=== PATIENT | male | born 1955 | race Caucasian/White ===

== ENCOUNTER → 2018-02-14 15:33 | Outpatient (CLI) | payer MEDICARE, OTHER, SELFPAY ==
[2018-02-14 17:35] LABS: T4 Free Direct 0.43 ng/dL (0.76-1.46)
== END ==
PROVIDERS: Family Provider Internal Medicine; PCP Internal Medicine; Visit Provider Nurse Practitioner
DX: E03.9 Hypothyroidism, unspecified (principal)
CPT/HCPCS: 36415; 84439; 84443; 84481

== ENCOUNTER 2020-03-21 16:55 | Inpatient (IN) | payer MEDICARE, OTHER, SELFPAY ==
[2020-03-21 16:55] VITALS: BP 116/71; PULSE 103; RESP 16; TEMP 35.4; O2SAT 96; BMI 48.8
[2020-03-21] MEDS: 0.9% Normal Saline 1,000 ML 150 ML IV (18:31)
[2020-03-21 18:33] VITALS: BP 153/85; PULSE 90; RESP 18; TEMP 36.9; O2SAT 96
--- NOTE | 2020-03-21 18:41 | RAD_ITS ---
STUDY: X-RAY - LEFT FOOT CLINICAL: Male, 64 years old. INFECTED WOUND LATERAL FOOT TECHNIQUE: 4 view(s) of the foot. COMPARISON: 10/03/2016. FINDINGS: Prominent deformities from extensive previous amputations across the midfoot. The talus and calcaneus remain intact. Portions of the navicular and cuneiforms remain in place. No definite focal destructive process of the bones, however with this degree of postoperative deformities, after myelitis cannot be excluded. Marked soft tissue swelling, soft tissue irregularities consistent with skin wounds, and soft tissue gas cannot be excluded. RAD/Foot min 3 Views IMPRESSION: Marked deformities from previous mid foot amputations. No definite focal destructive process of the bones. Extensive soft tissue abnormalities consistent with probable skin wounds and possible infection. Electronically Signed: Erasmo Solomon MD at 19:27 EDT , Service support ,
[2020-03-21 18:44] LABS: Absolute Lymphocyte Count 1.99 X10^3/uL (0.83-4.51); Absolute Neutrophil Count 9.3 X10^3/uL (2.0-7.7); Basophil# 0.11 X10^3/uL; Basophil% 0.8 % (0-1); Eosinophil# 0.25 X10^3/uL; Eosinophils% 1.9 % (0-5); Hematocrit 44.8 % (40-54); Hemoglobin 13.3 g/dL (13.0-16.5); Lymphocyte # 1.99 X10^3/ul (4.0); Lymphocyte % 15.2 % (19-41); Mean Corp Hgb Conc 29.7 g/dL (32-36); Mean Corpuscular Hgb 26.9 pg (27.0-32.0); Mean Corpuscular Volume 90.7 fL (80-94); Mean Platelet Vol. 10.1 fl (6.2-12.0); Monocyte# 1.22 X10^3/uL; Monocyte% 9.3 % (0-10); NRBC Flagged by Analyzer 0 % (0-5); Neutrophil # 9.26 X10^3/uL (2.7-7.7); Platelet Count 349 K/mm3 (150-450); RBC Distribution Width CV 16.2 % (11.6-14.6); RBC Distribution Width SD 53.8 fl (35.1-43.9); Red Blood Count 4.94 M/mm3 (4.6-6.2); White Blood Count 13.1 K/mm3 (4.4-11.0)
[2020-03-21 18:55] LABS: Anion Gap 6 (5-15); BUN 21 mg/dL (7-18); BUN/Creat Ratio 13.5 RATIO (10-20); Calcium,Total 8.9 mg/dL (8.5-10.1); Chloride 107 mmol/L (98-107); Creatinine, Serum 1.55 mg/dL (0.70-1.30); EST Glomerular Filtration Rate 49 mL/min (>60); Est Glom Filt Rate - Afr Amer 59 mL/min (>60); Estimated Creatinine Clearance 52.63 ml/min; Glucose 183 mg/dL (74-106); Potassium 4.7 mmol/L (3.5-5.1); Sodium Level 135 mmol/L (136-145)
--- NOTE | 2020-03-21 20:03 | PCM.HP.STD ---
Problem List (1) Alcoholism in recovery Status: Chronic (2) Diabetic foot infection Status: Acute (3) Sepsis Status: Acute Comment: with MRSA bacteremia due to diabetic foot infection August 2016 (4) COPD (chronic obstructive pulmonary disease) Status: Chronic (5) Diabetic neuropathy Status: Chronic (6) CAD (coronary artery disease) Status: Chronic (7) Diabetes mellitus Status: Chronic Qualifiers: Diabetes mellitus type: type 2 Diabetes mellitus long term care phlebotomist insulin use: with long term care phlebotomist use Diabetes mellitus complication status: with neurologic complications Diabetes mellitus complication detail: with other neurological complication Qualified Code(s): E11.49 - Type 2 diabetes mellitus with other diabetic neurological complication; Z79.4 - [facility] (current) use of insulin (8) Hypothyroidism Status: Chronic Qualifiers: Hypothyroidism type: acquired Qualified Code(s): E03.9 - Hypothyroidism, unspecified Comment: Reports has been more tired and lacking interest in doing things at this time. He feels he is gaining more weight and this he does not want. Rechech thyroid levels. (9) CECILE treated with BiPAP Status: Chronic Comment: PATIENT HAS OWN MACHINE. He feels he is doing well (10) HTN (hypertension) Status: Chronic Qualifiers: Hypertension type: essential hypertension Qualified Code(s): I10 - Essential (primary) hypertension Comment: Is on an paola inhibitor and tolerating well. BP 124/85 (11) Morbid obesity with BMI of 40.0-44.9, adult Status: Chronic (12) Diabetic foot ulcer associated with type 2 diabetes mellitus Status: Acute Qualifiers: Laterality: left (13) Uncontrolled diabetes mellitus Status: Chronic Qualifiers: Diabetes mellitus type: type 2 Comment: BG readings in the low 200 range. Seems to need more back ground insulin. He would probably benefit from use of U-500. He reports he has significant supply of insulin at this time and does want to use it up. Enc to monitor BG carefully (14) Non-compliance Status: Chronic (15) Hyperlipidemia Status: Chronic Qualifiers: Hyperlipidemia type: unspecified Qualified Code(s): E78.5 - Hyperlipidemia, unspecified Comment: No recent labs available at time of visit. He reports he is not willing to use a statin. Will obtain labs from [facility] provider. No medical records available at time of visit. (16) Venous stasis dermatitis Status: Chronic (17) Diabetic neuropathy associated with type 2 diabetes mellitus Status: Chronic (18) Charcot's joint of foot due to diabetes Status: Chronic History of Present Illness Date of Admission: 03/21/20 Chief Complaint: maldorous wound of left foot stump The patient is a 64 year old M with a significant history of diabetes; charcot foot; and previous amputation and abscess of left foot presenting with increased odor of a wound at the plantar side of a stump of his left foot. He unroofed a wound on the stump of his left foot about a week ago and thereafter noticed increased progression of a bad odor from the wound. He saw Dr. Etta DPM who recommended that he come to the emergency department. At the emergency department patient had a tachycardia and elevated white count. Past Medical History Past Medical History (Chronic Problems): Chronic Problems (Last Reviewed 03/21/20 @ 23:[address] Quoc Victor MD) Alcoholism in recovery (Chronic) COPD (chronic obstructive pulmonary disease) (Chronic) Diabetic neuropathy (Chronic) CAD (coronary artery disease) (Chronic) Diabetes mellitus (Chronic) Hypothyroidism (Chronic) Reports has been more tired and lacking interest in doing things at this time. He feels he is gaining more weight and this he does not want. Rechech thyroid levels. CECILE treated with BiPAP (Chronic) PATIENT HAS OWN MACHINE. He feels he is doing well HTN (hypertension) (Chronic) Is on an paola inhibitor and tolerating well. BP 124/85 Morbid obesity with BMI of 40.0-44.9, adult (Chronic) Uncontrolled diabetes mellitus (Chronic) BG readings in the low 200 range. Seems to need more back ground insulin. He would probably benefit from use of U-500. He reports he has significant supply of insulin at this time and does want to use it up. Enc to monitor BG carefully Non-compliance (Chronic) Hyperlipidemia (Chronic) No recent labs available at time of visit. He reports he is not willing to use a statin. Will obtain labs from [facility] provider. No medical records available at time of visit. Venous stasis dermatitis (Chronic) Diabetic neuropathy associated with type 2 diabetes mellitus (Chronic) Charcot's joint of foot due to diabetes (Chronic) Medical History: Medical History (Last Reviewed 03/22/20 @ 05:[address] Quoc Victor MD) Alcohol abuse F10.10 Anxiety and depression F41.9, F32.9 Arthritis M19.90 COPD (chronic obstructive pulmonary disease) J44.9 Diabetes type 2, uncontrolled E11.65 dx : 1999 last exacerbation : dka : never hypoglycemic episode : never er visit : never Drug abuse F19.10 GERD (gastroesophageal reflux disease) K21.9 GI problem R19.8 H/O transfusion of whole blood Z92.89 Hearing problem H91.90 High cholesterol E78.00 High triglycerides E78.1 CECILE (obstructive sleep apnea) G47.33 Pneumonia J18.9 Recurrent infections B99.9 Thyroid disorder E07.9 Vision problems H54.7 Vitamin deficiency E56.9 prostate problems HTN (hypertension) I10 Allergies No Known Allergies Allergy (Verified 02/14/18 14:04) Home Medications: Ambulatory Orders Medication Instructions Recorded Lorazepam [Ativan] 1 mg PO BID PRN PRN 08/14/16 Ropinirole HCl [Requip] 0.25 mg PO QHS PRN 08/17/16 doxycycline hyclate 100 mg capsule 100 mg PO BID 02/14/18 enalapril maleate 20 mg tablet 20 mg PO QHS 02/14/18 fluticasone propionate 50 2 spray INTRANASAL DAILY PRN PRN 02/14/18 mcg/actuation nasal spray,suspension insulin aspart U-100 100 unit/mL 60 unit SC TIDCM ml 02/14/18 subcutaneous solution insulin detemir U-100 100 unit/mL 200 unit SC BID ml 02/14/18 subcutaneous solution levothyroxine 75 mcg tablet 225 mcg PO DAILY@0600 #90 tab 03/02/18 Amlodipine [Norvasc] 2.5 mg PO DAILY 03/21/20 Citalopram [Celexa] 20 mg PO DAILY 03/21/20 Duloxetine HCl 60 mg PO DAILY 03/21/20 Omeprazole 40 mg PO QHS 03/21/20 buPROPion SR [Wellbutrin SR (150mg 150 mg PO BID 03/21/20 tablets)] Surgical History: Surgical History (Last Reviewed 03/22/20 @ 05:[address] 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 Psychiatric History: Anxiety, Depression Smoking Status: Former smoker Alcohol: Sober - *Family History Paternal Family History: Family History (Last Reviewed 03/22/20 @ 05:[address] Quoc Victor MD) Mother Arthritis Diabetes Hypertension High cholesterol Osteoporosis Sister Breast cancer Cancer High cholesterol Brother Lung cancer High cholesterol Father Hypertension High cholesterol History Items: Heart Disease, Hypertension Maternal Family History: Family History (Last Reviewed 03/22/20 @ 05:[address] Quoc Victor MD) Mother Arthritis Diabetes Hypertension High cholesterol Osteoporosis Sister Breast cancer Cancer High cholesterol Brother Lung cancer High cholesterol Father Hypertension High cholesterol History Items: Diabetes Sibling Family History: Family History (Last Reviewed 03/22/20 @ 05:[address] Quoc Victor MD) Mother Arthritis Diabetes Hypertension High cholesterol Osteoporosis Sister Breast cancer Cancer High cholesterol Brother Lung cancer High cholesterol Father Hypertension High cholesterol History Items: Cancer - sister with breast, brother of lung cancer Review of Systems Constitutional: Denies: Chills, Fever, Weight Change HEENT: Denies: Head Aches, Sinus Congestion, Sinus Drainage Cardiovascular: Denies: Chest Pain, Palpitations Respiratory: Denies: Cough, Shortness of breath at rest, Sputum production Gastrointestinal: Denies: Abdominal Pain, Nausea, Vomiting Genitourinary: Denies: Dysuria Musculoskeletal: Denies: Joint Pain, Joint Tenderness Skin: Reports: Wounds. Denies: Rash Neurological: Reports: Numbness - all extremities, chronic. Denies: Focal weakness, Tingling Psychiatric: Denies: Anxiety, Depression, Homicidal Ideations, Suicidal Ideations Hematologic/ Lymphatic: Denies: Easy Bruising, Easy Bleeding VTE Information - Inpt Only VTE Present on Admission: No VTE Mechan Device Prophylaxis: None VTE Pharm Prophylaxis ordered?: Yes - Physical Exam Vitals/I&O's: Vital Signs Temp Pulse Resp BP Pulse Ox 98.4 F 90 18 153/85 H 96 03/21/20 18:33 03/21/20 18:33 03/21/20 18:33 03/21/20 18:33 03/21/20 18:33 Oxygen Delivery Method Room Air Weight: 158.757 kg Body Mass Index (BMI) 48.8 Finger Stick Blood Glucose 198 Intake and Output for Last 24 Hours 03/19/20 03/20/20 03/21/20 23:59 23:59 23:59 Intake Total 112 / 112 Balance 112 / 112 General: Alert, Oriented x3, Cooperative HEENT: Atraumatic, PERRLA, EOMI, Normocephalic Neck: Supple, No JVD, Negative Carotid Bruits Lungs: Clear to auscultation, Normal air movement Cardiovascular: Normal S1, Normal S2, No murmurs, Tachycardic Abdomen: Bowel Sounds Present, Soft, Non Tender Extremities: No edema, - - Partial amputation of left foot. Necrotic wound at the plantar side and lateral side of left foot. Skin: No rashes, Ulcer/ Wound - Left fourth Musculoskeletal: No Tenderness to Palpation of Joints or Extremities Neurological: Cranial nerves II-XII grossly intact Psych/Mental Status: Normal Affect, Appropriate Laboratory Results 03/21/20 18:30: WBC 13.1 H, RBC 4.94, Hgb 13.3, Hct 44.8, MCV 90.7, MCH 26.9 L, MCHC 29.7 L, RDW Std Deviation 53.8 H, RDW Coeff of Jose 16.2 H, Plt Count 349, MPV 10.1, Immature Gran % (Auto) 1.800 H, Neut % (Auto) 71.0 H, Lymph % (Auto) 15.2 L, [place] % (Auto) 9.3, Eos % (Auto) 1.9, Baso % (Auto) 0.8, Absolute Neuts (auto) 9.3 H, Absolute Lymphs (auto) 1.99, Nucleated RBC % 0 03/21/20 18:30: Sodium 135 L, Potassium 4.7, Chloride 107, Carbon Dioxide 22.0, Anion Gap 6, BUN 21 H, Creatinine 1.55 H, Estim Creat Clear Calc 52.63, Est GFR (MDRD) Af Amer 59 L, Est GFR (MDRD) Non-Af 49 L, BUN/Creatinine Ratio 13.5, Glucose 183 H, Calcium 8.9 03/21/20 18:30: Lactic Acid 1.0 Current Medications Sodium Chloride () 1,000 mls @ 150 mls/hr IV .Q6H40M FAITH Last Admin: 03/21/20 18:31 Dose: 150 mls/hr Documented by: Vancomycin HCl 2,000 mg/ (Sodium Chloride) 540 mls @ 250 mls/hr IV X1 ONE Stop: 03/21/20 20:09 Last Admin: 03/21/20 19:13 Dose: 250 mls/hr Documented by: Assessment/Plan All Active Problems (Last Reviewed 03/21/20 @ 23:[address] Quoc Victor MD) Diabetic foot infection (Acute) Sepsis (Acute) Diabetic foot ulcer associated with type 2 diabetes mellitus (Acute) Acute renal failure (Resolved) COPD exacerbation (Resolved) Foot ulcer, left (Resolved) Hospital-acquired pneumonia (Resolved) Necrotizing fasciitis (Resolved) Non-ST elevated myocardial infarction (Resolved) Osteomyelitis of ankle or foot (Resolved) left foot neuropathic deep wound infection (Resolved) The patient is a 64 year old M with a significant history of diabetes; charcot foot; and previous amputation and abscess of left foot presenting with increased odor of the wound at the plantar side of a stump of his left foot; and with tachycardia and leukocytosis consistent with sepsis secondary to diabetic foot ulcer infection. Sepsis secondary to diabetic foot ulcer infection. On home suppressive therapy with doxycycline. Hold Doxycycline for now. Check ESR and CRP Received vancomycin and Unasyn at emergency department. Foot x-ray was consistent with probable skin wounds and possible infection. Podiatry consulted. MRI ordered by podiatry. Change antibiotics to vancomycin and Zosyn. Lactic acid unremarkable. Follow blood cultures ordered in emergency department. Diabetes mellitus with nephropathy and neuropathy Patient with hyperglycemia on presentation. Adjust basal and prandial insulin. Add correction scale insulin. CKD stage III Stable. Likely secondary to diabetes. Hypertension On presented blood pressure was not under control. Continue home blood pressure medications. DVT prophylaxis Subcutaneous heparin. [id number]
--- NOTE | 2020-03-21 20:18 | ED.VISSUMM ---
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 Patient states that he has a wound to his left foot that has been foul-smelling. Patient has had problems with diabetic foot ulcers in the past. He has had toes resected from the left foot. Patient has had intermittent fevers but not over the last 3 days. Patient denies cough. Patient is a diabetic and has a history of hypertension, COPD, high cholesterol, hypothyroidism, and coronary artery disease.] Physical Examination: [HEENT-PERRLA, EOMI. Cranial nerves II through XII grossly intact. TMs clear. Mucous membranes moist. No adenopathy. Cardiovascular-regular rate and rhythm without murmur or ectopy Lungs-clear to auscultation, chest wall stable without crepitus or subcu emphysema Abdomen-normoactive bowel sounds, soft, nontender, no rebound or rigidity, no peritoneal signs. Extremities-intact ?4, normal range of motion, normal pulses. Left foot-patient has a diabetic foot wound to the plantar aspect laterally of the midfoot. Toes have been surgically removed from the left foot. There is surrounding erythema and cellulitis. There is foul odor noted. No gas noted in the tissues.] Test Results: [Rays of the left foot obtained showed no evidence of osteomyelitis. CBC with differential showed a slightly elevated white count of 13.1, hemoglobin 13, hematocrit 45. Chemistries unremarkable.] Emergency Department Course and Treatment: [He was treated with Unasyn and vancomycin.] Treatment Plan: Admit] Disposition: [Admit] Impression: [Better foot wound Cellulitis left foot] This note was generated with [employer] dictation software. It may contain incorrect words, spelling, and punctuation that were not noted in review of the chart prior to signing ED Disposition - Plan for ED Patient: Referrals: Maico Jones MD [Primary Care Provider] -
--- NOTE | 2020-03-21 20:43 | CON.PCM_ITS ---
Reason for Consult Date of Consultation: 03/21/20 History of Present Illness: The patient is a 64 year old male with history of uncontrolled diabetes, medical nonadherence/noncompliance, previous left partial foot amputation due to infection osteomyelitis with residual chronic osteomyelitis on chronic Doxycyc line presented to my office today relating to a wound to the left foot. The wound was noted to be necrotic, with maloder and with cellulitis, edema and probing deep into foot. He relates he has been procrastinating and should have come in sooner. He was sent to the ER so patient could be admitted for further workup and management. He is at high risk for limb loss. He relates his blood sugars have been up and down. He does not relate to pain, but he has significant diabetic neuropathy. It is noted WBC is elevated at 13.1, afebrile, xrays w/out gas. Past Medical History Past Medical History (Chronic Problems): Chronic Problems (Last Updated 02/14/18 @ 14:40 by Shaista Rutherford) Alcoholism in recovery (Chronic) COPD (chronic obstructive pulmonary disease) (Chronic) Diabetic neuropathy (Chronic) CAD (coronary artery disease) (Chronic) Diabetes mellitus (Chronic) Hypothyroidism (Chronic) Reports has been more tired and lacking interest in doing things at this time. He feels he is gaining more weight and this he does not want. Rechech thyroid levels. CECILE treated with BiPAP (Chronic) PATIENT HAS OWN MACHINE. He feels he is doing well HTN (hypertension) (Chronic) Is on an paola inhibitor and tolerating well. BP 124/85 Morbid obesity with BMI of 40.0-44.9, adult (Chronic) Uncontrolled diabetes mellitus (Chronic) BG readings in the low 200 range. Seems to need more back ground insulin. He would probably benefit from use of U-500. He reports he has significant supply of insulin at this time and does want to use it up. Enc to monitor BG carefully Non-compliance (Chronic) Hyperlipidemia (Chronic) No recent labs available at time of visit. He reports he is not willing to use a statin. Will obtain labs from [facility] provider. No medical records available at time of visit. Venous stasis dermatitis (Chronic) Diabetic neuropathy associated with type 2 diabetes mellitus (Chronic) Charcot's joint of foot due to diabetes (Chronic) Medical History: Medical History (Last Updated 02/14/18 @ 14:40 by Shaista Rutherford) Alcohol abuse F10.10 Anxiety and depression F41.9, F32.9 Arthritis M19.90 COPD (chronic obstructive pulmonary disease) J44.9 Diabetes type 2, uncontrolled E11.65 dx : 1999 last exacerbation : dka : never hypoglycemic episode : never er visit : never Drug abuse F19.10 GERD (gastroesophageal reflux disease) K21.9 GI problem R19.8 H/O transfusion of whole blood Z92.89 Hearing problem H91.90 High cholesterol E78.00 High triglycerides E78.1 CECILE (obstructive sleep apnea) G47.33 Pneumonia J18.9 Recurrent infections B99.9 Thyroid disorder E07.9 Vision problems H54.7 Vitamin deficiency E56.9 prostate problems HTN (hypertension) I10 Allergies No Known Allergies Allergy (Verified 02/14/18 14:04) Home Medications: Ambulatory Orders Medication Instructions Recorded Lorazepam [Ativan] 1 mg PO BID PRN PRN 08/14/16 Ropinirole HCl [Requip] 0.25 mg PO QHS PRN 08/17/16 doxycycline hyclate 100 mg capsule 100 mg PO BID 02/14/18 enalapril maleate 20 mg tablet 20 mg PO QHS 02/14/18 fluticasone propionate 50 2 spray INTRANASAL DAILY PRN PRN 02/14/18 mcg/actuation nasal spray,suspension insulin aspart U-100 100 unit/mL 60 unit SC TIDCM ml 02/14/18 subcutaneous solution insulin detemir U-100 100 unit/mL 200 unit SC BID ml 02/14/18 subcutaneous solution levothyroxine 75 mcg tablet 225 mcg PO DAILY@0600 #90 tab 03/02/18 Amlodipine [Norvasc] 2.5 mg PO DAILY 03/21/20 Citalopram [Celexa] 20 mg PO DAILY 03/21/20 Duloxetine HCl 60 mg PO DAILY 03/21/20 Omeprazole 40 mg PO QHS 03/21/20 buPROPion SR [Wellbutrin SR (150mg 150 mg PO BID 03/21/20 tablets)] Surgical History: Surgical History (Last Updated 02/14/18 @ 14:40 by Shaista Rutherford) 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 Psychiatric History: Anxiety, Depression Smoking Status: Former smoker - *Family History Paternal Family History: Family History (Last Updated 02/14/18 @ 14:15 by Shaista Rutherford) Mother Arthritis Diabetes Hypertension High cholesterol Osteoporosis Sister Breast cancer Cancer High cholesterol Brother Lung cancer High cholesterol Father Hypertension High cholesterol History Items: Heart Disease, Hypertension Maternal Family History: Family History (Last Updated 02/14/18 @ 14:15 by Shaista Rutherford) Mother Arthritis Diabetes Hypertension High cholesterol Osteoporosis Sister Breast cancer Cancer High cholesterol Brother Lung cancer High cholesterol Father Hypertension High cholesterol History Items: Diabetes Sibling Family History: Family History (Last Updated 02/14/18 @ 14:15 by Shaista Rutherford) Mother Arthritis Diabetes Hypertension High cholesterol Osteoporosis Sister Breast cancer Cancer High cholesterol Brother Lung cancer High cholesterol Father Hypertension High cholesterol History Items: Cancer - sister with breast, brother of lung cancer Review of Systems Constitutional: Denies: Chills, Fever Gastrointestinal: Denies: Nausea, Vomiting - Physical Exam Vitals/I&O's: Vital Signs Temp Pulse Resp BP Pulse Ox 98.4 F 90 18 153/85 H 96 03/21/20 18:33 03/21/20 18:33 03/21/20 18:33 03/21/20 18:33 03/21/20 18:33 Oxygen Delivery Method Room Air Weight: 158.757 kg Body Mass Index (BMI) 48.8 Finger Stick Blood Glucose 198 Intake and Output for Last 24 Hours 03/19/20 03/20/20 03/21/20 23:59 23:59 23:59 Intake Total 112 / 112 Balance 112 / 112 General: Alert, Oriented x3, Cooperative, No apparent distress Extremities: No clubbing, No cyanosis, No Calf Tenderness, - - Left foot s/p midfoot amputation, residual limb has large necrotic ulceration to the plantar lateral aspect which probes deep close to bone, there is maloder, there is no fluctuance, no crepitus, no visible abscess, there is noted to be edema and cellulitis to the foot; no other open lesions bilateral foot. Left foot with increased temperature c/w infection. Right foot normal temperature. CFT < 2 seconds to all toes on the right foot, no evidence of acute ischemia to the left foot or right foot. No blistering bilateral foot/ankle. No edema right foot. No POP or pain on ROM to the foot/ankle bilateral. Sensation significantly diminished to foot/ankle bilateral. Motor function intact to the foot/ankle bilateral. Musculoskeletal: No Tenderness to Palpation of Joints or Extremities Psych/Mental Status: Normal Affect, Alert and oriented to time, place, person, mood and affect Laboratory Results 03/21/20 18:30: WBC 13.1 H, RBC 4.94, Hgb 13.3, Hct 44.8, MCV 90.7, MCH 26.9 L, MCHC 29.7 L, RDW Std Deviation 53.8 H, RDW Coeff of Jose 16.2 H, Plt Count 349, MPV 10.1, Immature Gran % (Auto) 1.800 H, Neut % (Auto) 71.0 H, Lymph % (Auto) 15.2 L, [place] % (Auto) 9.3, Eos % (Auto) 1.9, Baso % (Auto) 0.8, Absolute Neuts (auto) 9.3 H, Absolute Lymphs (auto) 1.99, Nucleated RBC % 0 03/21/20 18:30: Sodium 135 L, Potassium 4.7, Chloride 107, Carbon Dioxide 22.0, Anion Gap 6, BUN 21 H, Creatinine 1.55 H, Estim Creat Clear Calc 52.63, Est GFR (MDRD) Af Amer 59 L, Est GFR (MDRD) Non-Af 49 L, BUN/Creatinine Ratio 13.5, Glucose 183 H, Calcium 8.9 03/21/20 18:30: Lactic Acid 1.0 Current Medications Sodium Chloride () 1,000 mls @ 150 mls/hr IV .Q6H40M [facility] Last Admin: 03/21/20 18:31 Dose: 150 mls/hr Documented by: Assessment/Plan All Active Problems (Last Updated 02/14/18 @ 14:40 by Shaista Rutherford) Diabetic foot infection (Acute) Sepsis (Acute) Diabetic foot ulcer associated with type 2 diabetes mellitus (Acute) Acute blood loss anemia (Resolved) Acute renal failure (Resolved) COPD exacerbation (Resolved) Foot ulcer, left (Resolved) Hospital-acquired pneumonia (Resolved) Necrotizing fasciitis (Resolved) Non-ST elevated myocardial infarction (Resolved) Osteomyelitis of ankle or foot (Resolved) left foot neuropathic deep wound infection (Resolved) Deep ulceration down to fascia layer w/ necrosis left foot Cellulitis left foot Osteomyelitis left foot Diabetic neuropathy Diabetes Multiple Comorbidities Reviewed diagnostic data. I did call and speak with the ER team. The patient is going to be admitted, and IV antibiotics will be started. A culture will be ordered of the left foot. MRI will be ordered for further evaluation of possible deep abscess. Patient will likely need surgical debridement, however would like to get MRI first. LEAS will be ordered as well for further evaluation of arterial flow. No weightbearing left foot. Diabetes and medical management per medicine team. Greatly appreciate ER and medicine teams assistance with case. Podiatry will follow closely.
--- NOTE | 2020-03-21 20:58 | ART_ITS ---
Reason For Study: Left foot ulcer Procedure A bilateral lower extremity continuous wave Doppler with analog waveform analysis,segmental pressures,and ankle brachial indexes without exercise. Left Segmental Pressures Left brachial= 144mmHg. Left posterior tibial artery = 144mmHg. Left dorsalis pedis artery = 144mmHg. The left dorsalis pedis waveforms are triphasic. The left posterior tibial artery waveforms are triphasic. Right Segmental Pressures Right brachial= 142mmHg. Right posterior tibial artery = 148mmHg. Right dorsalis pedis artery = 125mmHg. Right digit = 121 mmHg. The right dorsalis pedis waveforms are triphasic. The right posterior tibial artery waveforms are triphasic. Indices The right ankle brachial index by the dorsalis pedis is 0.87. The right ankle brachial index by the posterior tibial artery is 1.03. The right digital-brachial index is 0.84. The left ankle brachial index by the dorsalis pedis is 1.00. The left ankle brachial index by the posterior tibial artery is 1.00. Interpretation Summary Triphasic Doppler waveforms are noted at ankle level bilaterally. Pulse-volume recordings appear satisfactory at all levels bilaterally. Resting ankle-brachial indices are normal bilaterally. The right digital-brachial index is normal. The left digital-brachial index was not obtained, presumably due to a prior partial left foot amputation. There is no evidence of significant arterial occlusive disease in the lower extremities bilaterally. Ordering Physician: Jimi Quiles Referring Physician: Maico Jones M.D. Performed By: Shi Ann RVT
--- NOTE | 2020-03-21 20:59 | MRI_ITS ---
STUDY: MRI LEFT MIDFOOT REASON FOR EXAM: Ulcer at lateral foot stump. TECHNIQUE: Standardized fat and water weighted pulse sequences were obtained in all 3 orthogonal planes. COMPARISON: Radiographs 03/21/2020 and MRI images 10/02/2016. FINDINGS: Normal tibiotalar and posterior subtalar articulations. Normal talonavicular articulation. There is a subchondral cyst in the cuboid at the calcaneocuboid articulation (inversion recovery sagittal image 11). There is no bone edema of the talus, calcaneus, navicular or remaining cuboid to indicate osteomyelitis. There is atrophy with fat replacement of the intrinsic muscles of the hindfoot/remaining midfoot (T1 axial images 11-18). There is edema in the subcutis adipose space of the stump and anterior aspect of the ankle. There is no focal fluid collection to indicate soft tissue abscess. 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 Edema in the subcutis adipose space without demonstrated soft tissue abscess. Atrophy of the intrinsic muscles of the hindfoot/remaining midfoot. Electronically Signed: Josh Figueroa MD at 10:27 EDT Tel , Service support ,
[2020-03-21 22:27] VITALS: BMI 55.6
[2020-03-21 22:28] LABS: Erythrocyte Sedimentation Rate 68 mm/hr (0-20)
[2020-03-21 22:30] VITALS: BP 140/78; PULSE 85; RESP 17; TEMP 36.9; O2SAT 94
[2020-03-21 22:46] VITALS: BMI 55.6
[2020-03-21] MEDS: Heparin Injection (Vial) 5,000 UNIT/ML VIAL 5000 UNIT SC (22:56)
[2020-03-21] MEDS: Lisinopril 20 MG Tablet PO (22:56)
[2020-03-21] MEDS: Pantoprazole Sodium 40 MG Tablet PO (22:57)
[2020-03-21] MEDS: buPROPion (SR) 150 MG Tablet.SA PO (22:57)
[2020-03-21] MEDS: LORazepam 1 MG Tablet PO (23:13)
[2020-03-21] MEDS: MELATONIN 3 MG TABLET PO (23:13)
[2020-03-21] MEDS: Pramipexole Di-HCl 0.125 MG Tablet PO (23:13)
[2020-03-22 00:01] LABS: Bedside Glucose 247 mg/dL (70-110)
--- NOTE | 2020-03-22 00:05 | NURSING ---
MRSA culture site is from LLE wound, not bilateral nares. Lab notified of change and this RN notified that lab would change the listed collection site.
[2020-03-22 01:22] LABS: Probe Check PASS; Staph aureus DNA By PCR POSITIVE (Negative)
[2020-03-22 01:24] LABS: M R Staph aureus DNA By PCR POSITIVE (Negative)
--- NOTE | 2020-03-22 02:05 | PCM.RX.CS ---
Consult Pharmacy has been consulted to manage selected antiobiotic: Vancomycin Type of Consult: New start Suspected Infection: Sepsis Labs: Sodium 135 mmol/L (136-145) L 03/21/20 18:30 Potassium 4.7 mmol/L (3.5-5.1) 03/21/20 18:30 Chloride 107 mmol/L (98-107) 03/21/20 18:30 Carbon Dioxide 22.0 mmol/L (21.0-32.0) 03/21/20 18:30 Anion Gap 6 (5-15) 03/21/20 18:30 BUN 21 mg/dL (7-18) H 03/21/20 18:30 Creatinine 1.55 mg/dL (0.70-1.30) H 03/21/20 18:30 Est GFR (MDRD) Af Amer 59 mL/min (>60) L 03/21/20 18:30 Est GFR (MDRD) Non-Af 49 mL/min (>60) L 03/21/20 18:30 BUN/Creatinine Ratio 13.5 RATIO (10-20) 03/21/20 18:30 Glucose 183 mg/dL (74-106) H 03/21/20 18:30 Goal Trough: 15-20 mcg/mL Pharmacy Plan for Drug Dosing: Pharmacy Service will continue to monitor and adjust dosing as required. Medications Vancomycin HCl 2,000 mg/ (Sodium Chloride) 540 mls @ 250 mls/hr IV Q12H [facility] Discontinued Medications Vancomycin HCl 2,000 mg/ (Sodium Chloride) 540 mls @ 250 mls/hr IV X1 ONE Stop: 03/21/20 20:09 Last Admin: 03/21/20:23 Dose: Infused Documented by: Follow-Up Labs: Trough Vancomycin Labs to be done on [date and time ordered]: 03/23 @ 8540
[2020-03-22 04:14] VITALS: BP 111/55; PULSE 84; RESP 17; TEMP 36.6; O2SAT 95
[2020-03-22 05:55] LABS: Absolute Lymphocyte Count 1.84 X10^3/uL (0.83-4.51); Absolute Neutrophil Count 7.1 X10^3/uL (2.0-7.7); Basophil# 0.06 X10^3/uL; Basophil% 0.6 % (0-1); Eosinophil# 0.25 X10^3/uL; Eosinophils% 2.4 % (0-5); Hematocrit 39.9 % (40-54); Hemoglobin 12.4 g/dL (13.0-16.5); Lymphocyte # 1.84 X10^3/ul (4.0); Lymphocyte % 17.9 % (19-41); Mean Corp Hgb Conc 31.1 g/dL (32-36); Mean Corpuscular Hgb 27.1 pg (27.0-32.0); Mean Corpuscular Volume 87.1 fL (80-94); Mean Platelet Vol. 10.1 fl (6.2-12.0); Monocyte# 0.93 X10^3/uL; NRBC Flagged by Analyzer 0 % (0-5); Neutrophil # 7.05 X10^3/uL (2.7-7.7); Neutrophil % 68.4 % (47-70); Platelet Count 319 K/mm3 (150-450); RBC Distribution Width CV 15.9 % (11.6-14.6); RBC Distribution Width SD 50.3 fl (35.1-43.9); Red Blood Count 4.58 M/mm3 (4.6-6.2); White Blood Count 10.3 K/mm3 (4.4-11.0)
[2020-03-22 06:22] LABS: Anion Gap 5 (5-15); BUN 21 mg/dL (7-18); BUN/Creat Ratio 14.2 RATIO (10-20); Calcium,Total 8.8 mg/dL (8.5-10.1); Chloride 103 mmol/L (98-107); Creatinine, Serum 1.48 mg/dL (0.70-1.30); EST Glomerular Filtration Rate 51 mL/min (>60); Est Glom Filt Rate - Afr Amer 62 mL/min (>60); Estimated Creatinine Clearance 55.12 ml/min; Glucose 202 mg/dL (74-106); Potassium 4.4 mmol/L (3.5-5.1); Sodium Level 134 mmol/L (136-145)
[2020-03-22] MEDS: Heparin Injection (Vial) 5,000 UNIT/ML VIAL 5000 UNIT SC ×3 (06:53→22:31)
[2020-03-22] MEDS: Levothyroxine 75 MCG Tablet 225 MCG PO (06:53)
--- NOTE | 2020-03-22 07:00 | NURSING ---
Pt has one IV access. Additional IV placement was attempted for an hour with no success. I spoke with pharmacy as pt has 0600 Zosyn and 0700 Vanc due. Pharmacy confirmed to run Vanc first as timing is more critical. They verified that it is alright to run the vanc at a slower rate to protect existing IV until addition access may be established. Pharmacy further stated to run 0600 Zosyn after vanc is completed.
[2020-03-22 07:41] LABS: Bedside Glucose 181 mg/dL (70-110)
[2020-03-22 07:44] VITALS: BP 112/65; PULSE 84; RESP 16; TEMP 36.7; O2SAT 97
[2020-03-22 07:50] VITALS: O2SAT 96
[2020-03-22] MEDS: Insulin Lispro 100 UNIT/ML INSULN.PEN SC (08:16)
[2020-03-22] MEDS: Insulin Lispro 100 UNIT/ML INSULN.PEN 40 UNIT SC ×2 (08:16→18:01)
[2020-03-22] MEDS: amLODIPine 2.5 MG Tablet PO (08:24)
[2020-03-22] MEDS: Citalopram 20 MG Tablet PO (08:24)
[2020-03-22] MEDS: buPROPion (SR) 150 MG Tablet.SA PO ×2 (08:24→22:32)
[2020-03-22] MEDS: DULoxetine Hcl 60 MG Capsule PO (08:25)
--- NOTE | 2020-03-22 09:50 | NURSING ---
pt to mri
--- NOTE | 2020-03-22 10:57 | PN_ITS ---
<Sinai Chong - Last Filed: 03/22/20 12:49> Subjective: Patient seen and examined. Returned from lower extremity MRI. States he would like to get some rest. Denies fever, chills. Denies other complaints. - Physical Exam Vitals/I&O's: Vital Signs Temp Pulse Resp BP Pulse Ox 98.1 F 84 16 112/65 96 03/22/20 07:44 03/22/20 07:44 03/22/20 07:44 03/22/20 07:44 03/22/20 07:50 Oxygen Delivery Method Room Air Weight: 398 lb 12.8 oz Body Mass Index (BMI) 55.6 Finger Stick Blood Glucose 198 Intake and Output for Last 24 Hours 03/20/20 03/21/20 03/22/20 23:59 23:59 23:59 Intake Total 652 / 1452 2553.33 / 2553.33 Balance 652 / 1452 2553.33 / 2553.33 General: Alert, Oriented x3, Cooperative HEENT: Atraumatic, PERRLA, EOMI, Normocephalic Neck: Supple, No JVD, Negative Carotid Bruits Lungs: Clear to auscultation, Diminished Cardiovascular: Regular rate, Regular Rhythm, Normal S1, Normal S2, No murmurs Abdomen: Bowel Sounds Present, Soft, Non Tender, Non-Distended, Obese Extremities: No clubbing, No cyanosis Skin: - - Left foot wound, dressing clean dry and intact. Musculoskeletal: No Tenderness to Palpation of Joints or Extremities Neurological: Cranial nerves II-XII grossly intact, Neuro grossly intact Psych/Mental Status: Normal Affect, Appropriate Laboratory Results 03/21/20 18:30: WBC 13.1 H, RBC 4.94, Hgb 13.3, Hct 44.8, MCV 90.7, MCH 26.9 L, MCHC 29.7 L, RDW Std Deviation 53.8 H, RDW Coeff of Jose 16.2 H, Plt Count 349, MPV 10.1, Immature Gran % (Auto) 1.800 H, Neut % (Auto) 71.0 H, Lymph % (Auto) 15.2 L, Karnes % (Auto) 9.3, Eos % (Auto) 1.9, Baso % (Auto) 0.8, Absolute Neuts (auto) 9.3 H, Absolute Lymphs (auto) 1.99, Nucleated RBC % 0 03/21/20 18:30: Sodium 135 L, Potassium 4.7, Chloride 107, Carbon Dioxide 22.0, Anion Gap 6, BUN 21 H, Creatinine 1.55 H, Estim Creat Clear Calc 52.63, Est GFR (MDRD) Af Amer 59 L, Est GFR (MDRD) Non-Af 49 L, BUN/Creatinine Ratio 13.5, Glucose 183 H, Calcium 8.9 03/21/20 18:30: Lactic Acid 1.0 03/21/20 18:30: ESR 68 H 03/21/20 18:30: C-React Prot Ext Range 40.90 H 03/21/20 23:19: POC Glucose 247 H 03/21/20 23:35: S.aureus Protein A PCR POSITIVE H, MRSA (PCR) POSITIVE H 03/22/20 05:26: WBC 10.3, RBC 4.58 L, Hgb 12.4 L, Hct 39.9 L, MCV 87.1, MCH 27.1, MCHC 31.1 L, RDW Std Deviation 50.3 H, RDW Coeff of Jose 15.9 H, Plt Count 319, MPV 10.1, Immature Gran % (Auto) 1.700 H, Neut % (Auto) 68.4, Lymph % (Auto) 17.9 L, Karnes % (Auto) 9.0, Eos % (Auto) 2.4, Baso % (Auto) 0.6, Absolute Neuts (auto) 7.1, Absolute Lymphs (auto) 1.84, Nucleated RBC % 0 03/22/20 05:26: Sodium 134 L, Potassium 4.4, Chloride 103, Carbon Dioxide 26.0, Anion Gap 5, BUN 21 H, Creatinine 1.48 H, Estim Creat Clear Calc 55.12, Est GFR (MDRD) Af Amer 62, Est GFR (MDRD) Non-Af 51 L, BUN/Creatinine Ratio 14.2, Glucose 202 H, Calcium 8.8 03/22/20 07:35: POC Glucose 181 H Current Medications Acetaminophen (Tylenol) 650 mg PO Q6H PRN PRN PRN Reason: Pain Score 1-10/Temp > 100.7 F Amlodipine Besylate (Norvasc) 2.5 mg PO DAILY [facility] Last Admin: 03/22/20 08:24 Dose: 2.5 mg Documented by: Bupropion HCl (Wellbutrin Sr (150mg Tablets)) 150 mg PO BID [facility] Last Admin: 03/22/20 08:24 Dose: 150 mg Documented by: Citalopram Hydrobromide (Celexa) 20 mg PO DAILY [facility] Last Admin: 03/22/20 08:24 Dose: 20 mg Documented by: Dextrose (D50w Syringe) 0 gm IV X1 PRN; Protocol PRN Reason: Hypoglycemia Duloxetine HCl (Cymbalta) 60 mg PO DAILY [facility] Last Admin: 03/22/20 08:25 Dose: 60 mg Documented by: Glucagon () 1 mg IM .X1 PRN PRN Reason: Hypoglycemia Heparin Sodium (Porcine) (Heparin Na) 5,000 unit SC Q8 [facility] Last Admin: 03/22/20 06:53 Dose: 5,000 unit Documented by: Piperacillin Sod/Tazobactam (Sod 3.375 gm/ Sodium Chloride) 50 mls @ 12.5 mls/hr IV Q8 [facility] Last Infusion: 03/22/20 10:18 Dose: 12.5 mls/hr Documented by: Vancomycin IV Pharmacy to Dose (1 ea/ Sodium Chloride) 500 mls @ 250 mls/hr IV X1 PRN; Protocol PRN Reason: Rx to Dose Vancomycin HCl 2,000 mg/ (Sodium Chloride) 540 mls @ 250 mls/hr IV Q12H [facility] Last Infusion: 03/22/20 10:18 Dose: 100 mls/hr Documented by: Sodium Chloride () 250 mls @ 15 mls/hr IV .[id number] PRN PRN Reason: Saline Flush Sodium Chloride () 250 mls @ 15 mls/hr IV .[id number] PRN PRN Reason: Additional IVPB Infusion Insulin Glargine (Lantus (Bkc)) 180 units SC BID [facility] Last Admin: 03/22/20 08:17 Dose: 180 u Documented by: Insulin Human Lispro (Humalog Kwikpen (Bkc)) 0 unit SC ACHS [facility]; Protocol Last Admin: 03/22/20 08:16 Dose: 2 u Documented by: Insulin Human Lispro (Humalog Kwikpen (Bkc)) 40 unit SC TIDCM [facility] Last Admin: 03/22/20 08:16 Dose: 40 u Documented by: Iopamidol (Contrast Allergy Check) 0 ml IV X1 [facility] Last Admin: 03/22/20 01:18 Dose: Not Given Documented by: Levothyroxine Sodium (Synthroid) 225 mcg PO DAILY@0600 [facility] Last Admin: 03/22/20 06:53 Dose: 225 mcg Documented by: Lisinopril (Zestril) 20 mg PO QHS [facility] Last Admin: 03/21/20 22:56 Dose: 20 mg Documented by: Lorazepam (Ativan) 1 mg PO BID PRN PRN PRN Reason: ANXIETY Last Admin: 03/21/20 23:13 Dose: 1 mg Documented by: Melatonin (Melatonin) 3 mg PO QHS PRN PRN PRN Reason: INSOMNIA Last Admin: 03/21/20 23:13 Dose: 3 mg Documented by: Nutritional Formula (Lactose Free) (Glucerna Shake) 120 ml PO TIDCM [facility] Last Admin: 03/22/20 10:17 Dose: Not Given Documented by: Ondansetron HCl (Zofran) 4 mg IV Q8H PRN PRN PRN Reason: NAUSEA/VOMITING Pantoprazole Sodium (Protonix) 40 mg PO QHS [facility] Last Admin: 03/21/20 22:57 Dose: 40 mg Documented by: Pramipexole Dihydrochloride (Mirapex) 0.125 mg PO QHS PRN PRN PRN Reason: RESTLESS LEG Last Admin: 03/21/20 23:13 Dose: 0.125 mg Documented by: Senna/Docusate Sodium (Senokot-S, Jolly-Colace) 2 tablet PO BID PRN PRN PRN Reason: Constipation Sodium Chloride () 10 - 40 ml IV UD PRN PRN Reason: SALINE FLUSH Medical Necessity - Tobacco Use Smoking Status: Former smoker Assessment/Plan All Active Problems (Last Reviewed 03/22/20 @ 05:[address] Quoc Victor MD) Diabetic foot infection (Acute) Sepsis (Acute) Diabetic foot ulcer associated with type 2 diabetes mellitus (Acute) Acute renal failure (Resolved) COPD exacerbation (Resolved) Foot ulcer, left (Resolved) Hospital-acquired pneumonia (Resolved) Necrotizing fasciitis (Resolved) Non-ST elevated myocardial infarction (Resolved) Osteomyelitis of ankle or foot (Resolved) left foot neuropathic deep wound infection (Resolved) 1. Sepsis secondary to left foot diabetic ulceration-podiatry following. 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 No abscess. Continue IV vancomycin and IV Zosyn. Cultures pending. Wound RN consult. Nonweightbearing left lower extremity. PT/OT. 2. Type 2 diabetes mellitus with nephropathy and [id number]-[id number]-[id number] with sliding scale insulin. Continue home insulin regimen. Most recent hemoglobin A1c in 2016 9.3%. Repeat hemoglobin A1c. 3. Chronic kidney disease stage III-at baseline, trend BMP. 4. Hypertension-stable, continue amlodipine, enalapril regimen. 5. Hypothyroidism-continue Synthroid regimen. 6. Depression/anxiety-continue Wellbutrin, Celexa, duloxetine regimen. Patient on PRN Ativan as well. 7. GERD-continue PPI. 8. Restless leg syndrome-continue PRN Requip. 9. CECILE-continue home Pap regimen. 10. Morbid obesity-encouraged diet and lifestyle modifications. Nutrition consult. DVT prophylaxis- heparin sc This patient was seen by EASTON Mcgregor under the supervision of Dr. Kessler. <Kory Kessler - Last Filed: 03/22/20 13:59> Subjective: Seen and examined. Patient had MRI of left foot which shows no definite focal destructive process of bone but extensive soft tissue abnormalities consistent with skin ulcer without soft tissue abscess but atrophy of intrinsic muscles of hindfoot. No fever or chills. Patient is morbidly obese blood pressure is controlled. - Physical Exam Vitals/I&O's: Vital Signs Temp Pulse Resp BP Pulse Ox 97.8 F 92 16 108/52 L 97 03/22/20 11:57 03/22/20 11:57 03/22/20 11:57 03/22/20 11:57 03/22/20 11:57 Oxygen Delivery Method Room Air Weight: 398 lb 12.8 oz Body Mass Index (BMI) 55.6 Finger Stick Blood Glucose 198 Intake and Output for Last 24 Hours 03/20/20 03/21/20 03/22/20 23:59 23:59 23:59 Intake Total 652 / 1452 3140.00 / 3140.00 Balance 652 / 1452 3140.00 / 3140.00 General: Alert, Oriented x3, Cooperative HEENT: Atraumatic, PERRLA, EOMI, Normocephalic Neck: Supple, No JVD, Negative Carotid Bruits Lungs: Clear to auscultation, No rhonchi, No wheeze, No rales, Diminished - Air entry diminished bilaterally. Cardiovascular: Regular rate, No murmurs Abdomen: Bowel Sounds Present, Soft, Non Tender, Non-Distended, Obese Extremities: Capillary Refill Less than 3 Seconds, Edema Skin: No rashes, No breakdown Musculoskeletal: No Tenderness to Palpation of Joints or Extremities, Arthritic Changes Neurological: Cranial nerves II-XII grossly intact, Neuro grossly intact Psych/Mental Status: Normal Affect, Appropriate Microbiology Past 72 Hours 03/21/20 23:35 Wound - Aerobic & Anaerobic Swabs Gram Stain - Final 03/21/20 23:35 Wound - Aerobic & Anaerobic Swabs Wound Culture - Preliminary Staphylococcus species Laboratory Results 03/21/20 18:30: WBC 13.1 H, RBC 4.94, Hgb 13.3, Hct 44.8, MCV 90.7, MCH 26.9 L, MCHC 29.7 L, RDW Std Deviation 53.8 H, RDW Coeff of Jose 16.2 H, Plt Count 349, MPV 10.1, Immature Gran % (Auto) 1.800 H, Neut % (Auto) 71.0 H, Lymph % (Auto) 15.2 L, Karnes % (Auto) 9.3, Eos % (Auto) 1.9, Baso % (Auto) 0.8, Absolute Neuts (auto) 9.3 H, Absolute Lymphs (auto) 1.99, Nucleated RBC % 0 03/21/20 18:30: Sodium 135 L, Potassium 4.7, Chloride 107, Carbon Dioxide 22.0, Anion Gap 6, BUN 21 H, Creatinine 1.55 H, Estim Creat Clear Calc 52.63, Est GFR (MDRD) Af Amer 59 L, Est GFR (MDRD) Non-Af 49 L, BUN/Creatinine Ratio 13.5, Glucose 183 H, Calcium 8.9 03/21/20 18:30: Lactic Acid 1.0 03/21/20 18:30: ESR 68 H 03/21/20 18:30: C-React Prot Ext Range 40.90 H 03/21/20 23:19: POC Glucose 247 H 03/21/20 23:35: S.aureus Protein A PCR POSITIVE H, MRSA (PCR) POSITIVE H 03/22/20 05:26: WBC 10.3, RBC 4.58 L, Hgb 12.4 L, Hct 39.9 L, MCV 87.1, MCH 27.1, MCHC 31.1 L, RDW Std Deviation 50.3 H, RDW Coeff of Jose 15.9 H, Plt Count 319, MPV 10.1, Immature Gran % (Auto) 1.700 H, Neut % (Auto) 68.4, Lymph % (Auto) 17.9 L, Karnes % (Auto) 9.0, Eos % (Auto) 2.4, Baso % (Auto) 0.6, Absolute Neuts (auto) 7.1, Absolute Lymphs (auto) 1.84, Nucleated RBC % 0 03/22/20 05:26: Sodium 134 L, Potassium 4.4, Chloride 103, Carbon Dioxide 26.0, Anion Gap 5, BUN 21 H, Creatinine 1.48 H, Estim Creat Clear Calc 55.12, Est GFR (MDRD) Af Amer 62, Est GFR (MDRD) Non-Af 51 L, BUN/Creatinine Ratio 14.2, Glucose 202 H, Calcium 8.8 03/22/20 05:26: Hemoglobin A1c Pending 03/22/20 07:35: POC Glucose 181 H 03/22/20 11:31: POC Glucose 125 H Current Medications Acetaminophen (Tylenol) 650 mg PO Q6H PRN PRN PRN Reason: Pain Score 1-10/Temp > 100.7 F Amlodipine Besylate (Norvasc) 2.5 mg PO DAILY [facility] Last Admin: 03/22/20 08:24 Dose: 2.5 mg Documented by: Bupropion HCl (Wellbutrin Sr (150mg Tablets)) 150 mg PO BID [facility] Last Admin: 03/22/20 08:24 Dose: 150 mg Documented by: Citalopram Hydrobromide (Celexa) 20 mg PO DAILY [facility] Last Admin: 03/22/20 08:24 Dose: 20 mg Documented by: Dextrose (D50w Syringe) 0 gm IV X1 PRN; Protocol PRN Reason: Hypoglycemia Duloxetine HCl (Cymbalta) 60 mg PO DAILY [facility] Last Admin: 03/22/20 08:25 Dose: 60 mg Documented by: Glucagon () 1 mg IM .X1 PRN PRN Reason: Hypoglycemia Heparin Sodium (Porcine) (Heparin Na) 5,000 unit SC Q8 [facility] Last Admin: 03/22/20 13:31 Dose: 5,000 unit Documented by: Piperacillin Sod/Tazobactam (Sod 3.375 gm/ Sodium Chloride) 50 mls @ 12.5 mls/hr IV Q8 [facility] Last Admin: 03/22/20 13:31 Dose: 12.5 mls/hr Documented by: Vancomycin IV Pharmacy to Dose (1 ea/ Sodium Chloride) 500 mls @ 250 mls/hr IV X1 PRN; Protocol PRN Reason: Rx to Dose Vancomycin HCl 2,000 mg/ (Sodium Chloride) 540 mls @ 250 mls/hr IV Q12H [facility] Last Infusion: 03/22/20 13:17 Dose: Infused Documented by: Sodium Chloride () 250 mls @ 15 mls/hr IV .[id number] PRN PRN Reason: Saline Flush Sodium Chloride () 250 mls @ 15 mls/hr IV .[id number] PRN PRN Reason: Additional IVPB Infusion Insulin Glargine (Lantus (Bkc)) 180 units SC BID [facility] Last Admin: 03/22/20 08:17 Dose: 180 u Documented by: Insulin Human Lispro (Humalog Kwikpen (Bkc)) 0 unit SC ACHS [facility]; Protocol Last Admin: 03/22/20 11:43 Dose: Not Given Documented by: Insulin Human Lispro (Humalog Kwikpen (Bkc)) 40 unit SC TIDCM [facility] Last Admin: 03/22/20 11:43 Dose: Not Given Documented by: Iopamidol (Contrast Allergy Check) 0 ml IV X1 [facility] Last Admin: 03/22/20 01:18 Dose: Not Given Documented by: Levothyroxine Sodium (Synthroid) 225 mcg PO DAILY@0600 [facility] Last Admin: 03/22/20 06:53 Dose: 225 mcg Documented by: Lisinopril (Zestril) 20 mg PO QHS [facility] Last Admin: 03/21/20 22:56 Dose: 20 mg Documented by: Lorazepam (Ativan) 1 mg PO BID PRN PRN PRN Reason: ANXIETY Last Admin: 03/21/20 23:13 Dose: 1 mg Documented by: Melatonin (Melatonin) 3 mg PO QHS PRN PRN PRN Reason: INSOMNIA Last Admin: 03/21/20 23:13 Dose: 3 mg Documented by: Ondansetron HCl (Zofran) 4 mg IV Q8H PRN PRN PRN Reason: NAUSEA/VOMITING Pantoprazole Sodium (Protonix) 40 mg PO QHS [facility] Last Admin: 03/21/20 22:57 Dose: 40 mg Documented by: Pramipexole Dihydrochloride (Mirapex) 0.125 mg PO QHS PRN PRN PRN Reason: RESTLESS LEG Last Admin: 03/21/20 23:13 Dose: 0.125 mg Documented by: Senna/Docusate Sodium (Senokot-S, Jolly-Colace) 2 tablet PO BID PRN PRN PRN Reason: Constipation Sodium Chloride () 10 - 40 ml IV UD PRN PRN Reason: SALINE FLUSH Assessment/Plan This patient was [facility]. I have independently interviewed and examined the patient and reviewed pertinent history, examination findings, laboratory and plan of management. I have reviewed the note and agree with the documented findings with the few additional points. In brief, patient is 64-year-old gentleman with history of type 2 diabetes mellitus, complicated with diabetic nephropathy and neuropathy is being admitted for sepsis secondary to left foot diabetic ulcer: Preliminary Gram stain of wound culture shows 1+ staph species. Patient had MRI foot which did not show soft tissue abscess or osteomyelitis but atrophic muscles of hindfoot. On IV vancomycin and Zosyn. Electrostatic Painter Dr. Quiles is been consulted. Type 2 diabetes mellitus: On home regimen of insulin. Last A1c in 2016 9.3%. Other comorbidities include CKD stage III at baseline, hypertension, hypothyroidism, anxiety and depression, GERD, restless leg syndrome, morbid obesity with obstructive sleep apnea: PT and OT. Continue home medications. DVT prophylaxis on heparin subcutaneous. I have discussed my assessment with Sinai KWAN and orders have been reviewed. Inpatient E&M: 88459 Subs Hosp L2
--- NOTE | 2020-03-22 11:00 | CASEMGMT ---
RN MALGORZATA Face to Face with patient for initial transition planning/care coordination assessment. RN CM introduced self and role at [facility]. Patient lying in bed, alert and oriented. Patient willing to participate in assessment and is able to answer all questions appropriately. Care providers, pharmacy, and demographics verified. Patient wishes to discharge home, denies need for home health at this time. Patient states he has no further needs or concerns at this time. CM to follow for discharge planning needs that may arise. PCP: Robert Specialists: Etta maintenance helper Preferred Pharmacy: [facility] Insurance: [facility] Prescription Benefit: yes Living Will/HPOA: none LNOK: mother Living Arrangements: Patient lives with mother in 2 story home, patient states he is independent at home. Transportation: Cousin DME/HHC: Patient states he has BSC, walker, and cpap at home. Patient denies additional DME or HHC at this time. Patient continues on IV ATB will monitor for IV ATB needs at discharge as well as wound care. Disposition Plan: Patient to discharge home with family support and follow-up plans in place. Will continue to monitor. Shi DIEHL, RN, CM
[2020-03-22 11:51] LABS: Bedside Glucose 125 mg/dL (70-110)
[2020-03-22 11:57] VITALS: BP 108/52; PULSE 92; RESP 16; TEMP 36.6; O2SAT 97
--- NOTE | 2020-03-22 13:26 | PCM.PROGNOTE ---
Subjective: This 64-year-old male was seen bedside for left foot infected ulcer. He denies fever, chill, nausea or vomiting. He relates he is exhausted. He had his MRI completed this morning. He is not ready to proceed forward with a leg amputation at this time and would like to try wound care. - Physical Exam Vitals/I&O's: Vital Signs Temp Pulse Resp BP Pulse Ox 97.8 F 92 16 108/52 L 97 03/22/20 11:57 03/22/20 11:57 03/22/20 11:57 03/22/20 11:57 03/22/20 11:57 Oxygen Delivery Method Room Air Weight: 180.893 kg Body Mass Index (BMI) 55.6 Finger Stick Blood Glucose 198 Intake and Output for Last 24 Hours 03/20/20 03/21/20 03/22/20 23:59 23:59 23:59 Intake Total 652 / 1452 3140.00 / 3140.00 Balance 652 / 1452 3140.00 / 3140.00 General: Alert, Oriented x3, Cooperative HEENT: Atraumatic Extremities: No cyanosis, Capillary Refill Less than 3 Seconds, No Calf Tenderness, Diminished Peripheral Pulses, Edema Skin: Ulcer/ Wound - No purulence on expression or odor. The ulcer bed is very devitalized and necrotic with interspersed granulation and fibrous tissue and eschar. This ulcer does probe approximately 1 cm but not directly to bone. There is no fluctuance or bogginess on palpation. There is some peripheral callus noted. Musculoskeletal: No Tenderness to Palpation of Joints or Extremities, Muscle Wasting, - - Prior modified Chopart amputation is noted, left. Negative Addy and Latif sign left lower extremity Neurological: - - Lack of normal epicritic sensation light touch is consistent with his neuropathy status Psych/Mental Status: Normal Affect, Appropriate Microbiology Past 72 Hours 03/21/20 23:35 Wound - Aerobic & Anaerobic Swabs Gram Stain - Final 03/21/20 23:35 Wound - Aerobic & Anaerobic Swabs Wound Culture - Preliminary Staphylococcus species Laboratory Results 03/21/20 18:30: WBC 13.1 H, RBC 4.94, Hgb 13.3, Hct 44.8, MCV 90.7, MCH 26.9 L, MCHC 29.7 L, RDW Std Deviation 53.8 H, RDW Coeff of Jose 16.2 H, Plt Count 349, MPV 10.1, Immature Gran % (Auto) 1.800 H, Neut % (Auto) 71.0 H, Lymph % (Auto) 15.2 L, Nobles % (Auto) 9.3, Eos % (Auto) 1.9, Baso % (Auto) 0.8, Absolute Neuts (auto) 9.3 H, Absolute Lymphs (auto) 1.99, Nucleated RBC % 0 03/21/20 18:30: Sodium 135 L, Potassium 4.7, Chloride 107, Carbon Dioxide 22.0, Anion Gap 6, BUN 21 H, Creatinine 1.55 H, Estim Creat Clear Calc 52.63, Est GFR (MDRD) Af Amer 59 L, Est GFR (MDRD) Non-Af 49 L, BUN/Creatinine Ratio 13.5, Glucose 183 H, Calcium 8.9 03/21/20 18:30: Lactic Acid 1.0 03/21/20 18:30: ESR 68 H 03/21/20 18:30: C-React Prot Ext Range 40.90 H 03/21/20 23:19: POC Glucose 247 H 03/21/20 23:35: S.aureus Protein A PCR POSITIVE H, MRSA (PCR) POSITIVE H 03/22/20 05:26: WBC 10.3, RBC 4.58 L, Hgb 12.4 L, Hct 39.9 L, MCV 87.1, MCH 27.1, MCHC 31.1 L, RDW Std Deviation 50.3 H, RDW Coeff of Jose 15.9 H, Plt Count 319, MPV 10.1, Immature Gran % (Auto) 1.700 H, Neut % (Auto) 68.4, Lymph % (Auto) 17.9 L, Nobles % (Auto) 9.0, Eos % (Auto) 2.4, Baso % (Auto) 0.6, Absolute Neuts (auto) 7.1, Absolute Lymphs (auto) 1.84, Nucleated RBC % 0 03/22/20 05:26: Sodium 134 L, Potassium 4.4, Chloride 103, Carbon Dioxide 26.0, Anion Gap 5, BUN 21 H, Creatinine 1.48 H, Estim Creat Clear Calc 55.12, Est GFR (MDRD) Af Amer 62, Est GFR (MDRD) Non-Af 51 L, BUN/Creatinine Ratio 14.2, Glucose 202 H, Calcium 8.8 03/22/20 07:35: POC Glucose 181 H 03/22/20 11:31: POC Glucose 125 H Current Medications Acetaminophen (Tylenol) 650 mg PO Q6H PRN PRN PRN Reason: Pain Score 1-10/Temp > 100.7 F Amlodipine Besylate (Norvasc) 2.5 mg PO DAILY [facility] Last Admin: 03/22/20 08:24 Dose: 2.5 mg Documented by: Bupropion HCl (Wellbutrin Sr (150mg Tablets)) 150 mg PO BID [facility] Last Admin: 03/22/20 08:24 Dose: 150 mg Documented by: Citalopram Hydrobromide (Celexa) 20 mg PO DAILY [facility] Last Admin: 03/22/20 08:24 Dose: 20 mg Documented by: Dextrose (D50w Syringe) 0 gm IV X1 PRN; Protocol PRN Reason: Hypoglycemia Duloxetine HCl (Cymbalta) 60 mg PO DAILY [facility] Last Admin: 03/22/20 08:25 Dose: 60 mg Documented by: Glucagon () 1 mg IM .X1 PRN PRN Reason: Hypoglycemia Heparin Sodium (Porcine) (Heparin Na) 5,000 unit SC Q8 [facility] Last Admin: 03/22/20 06:53 Dose: 5,000 unit Documented by: Piperacillin Sod/Tazobactam (Sod 3.375 gm/ Sodium Chloride) 50 mls @ 12.5 mls/hr IV Q8 [facility] Last Infusion: 03/22/20 13:17 Dose: Infused Documented by: Vancomycin IV Pharmacy to Dose (1 ea/ Sodium Chloride) 500 mls @ 250 mls/hr IV X1 PRN; Protocol PRN Reason: Rx to Dose Vancomycin HCl 2,000 mg/ (Sodium Chloride) 540 mls @ 250 mls/hr IV Q12H [facility] Last Infusion: 03/22/20 13:17 Dose: Infused Documented by: Sodium Chloride () 250 mls @ 15 mls/hr IV .[id number] PRN PRN Reason: Saline Flush Sodium Chloride () 250 mls @ 15 mls/hr IV .[id number] PRN PRN Reason: Additional IVPB Infusion Insulin Glargine (Lantus (Bkc)) 180 units SC BID [facility] Last Admin: 03/22/20 08:17 Dose: 180 u Documented by: Insulin Human Lispro (Humalog Kwikpen (Bkc)) 0 unit SC ACHS [facility]; Protocol Last Admin: 03/22/20 11:43 Dose: Not Given Documented by: Insulin Human Lispro (Humalog Kwikpen (Bkc)) 40 unit SC TIDCM [facility] Last Admin: 03/22/20 11:43 Dose: Not Given Documented by: Iopamidol (Contrast Allergy Check) 0 ml IV X1 [facility] Last Admin: 03/22/20 01:18 Dose: Not Given Documented by: Levothyroxine Sodium (Synthroid) 225 mcg PO DAILY@0600 [facility] Last Admin: 03/22/20 06:53 Dose: 225 mcg Documented by: Lisinopril (Zestril) 20 mg PO QHS [facility] Last Admin: 03/21/20 22:56 Dose: 20 mg Documented by: Lorazepam (Ativan) 1 mg PO BID PRN PRN PRN Reason: ANXIETY Last Admin: 03/21/20 23:13 Dose: 1 mg Documented by: Melatonin (Melatonin) 3 mg PO QHS PRN PRN PRN Reason: INSOMNIA Last Admin: 03/21/20 23:13 Dose: 3 mg Documented by: Ondansetron HCl (Zofran) 4 mg IV Q8H PRN PRN PRN Reason: NAUSEA/VOMITING Pantoprazole Sodium (Protonix) 40 mg PO QHS [facility] Last Admin: 03/21/20 22:57 Dose: 40 mg Documented by: Pramipexole Dihydrochloride (Mirapex) 0.125 mg PO QHS PRN PRN PRN Reason: RESTLESS LEG Last Admin: 03/21/20 23:13 Dose: 0.125 mg Documented by: Senna/Docusate Sodium (Senokot-S, Jolly-Colace) 2 tablet PO BID PRN PRN PRN Reason: Constipation Sodium Chloride () 10 - 40 ml IV UD PRN PRN Reason: SALINE FLUSH Medical Necessity - Tobacco Use Smoking Status: Former smoker Assessment/Plan All Active Problems (Last Reviewed 03/22/20 @ 05:[address] Quoc Victor MD) Diabetic foot infection (Acute) Sepsis (Acute) Diabetic foot ulcer associated with type 2 diabetes mellitus (Acute) Acute renal failure (Resolved) COPD exacerbation (Resolved) Foot ulcer, left (Resolved) Hospital-acquired pneumonia (Resolved) Necrotizing fasciitis (Resolved) Non-ST elevated myocardial infarction (Resolved) Osteomyelitis of ankle or foot (Resolved) left foot neuropathic deep wound infection (Resolved) Deep ulceration down to fascia layer w/ necrosis left foot Cellulitis left foot Osteomyelitis left foot not detected on MRI Diabetic neuropathy Diabetes Multiple Comorbidities Reviewed diagnostic data. He is afebrile and his vital signs are stable. His wound culture demonstrates gram-positive and negative rods and gram-positive cocci. His leukocytosis is improving and his white blood cell count was 10.3. His blood cultures are negative so far. X-rays demonstrate modified show part amputation with plantar flexion of foot. There is part of the cuboid remaining and the navicular. The remaining cuboid is in alignment with the ulcer bed. The MRI does not demonstrate additional deep abscess or osteomyelitis. There is visualized skin discontinuity with adjacent subcutaneous edema noted. We discussed his intervention options in detail including continued IV antibiotics with bedside debridement and localized wound care. Versus during his surgery to remove the prominent cuboid and potentially navicular bone to allow foot shape improvement to reduce pressure, versus below-knee amputation. He is demonstrating some improvement overnight would like to proceed forward with the wound care options today. Subcutaneous excisional debridement was performed with a medical scissor and pickup. This was irrigated with normal saline and Betadine soaked wet-to-dry gauze was applied. This was secured in place with Kerlix and Mickey wrap. He was advised to maintain a strict nonweightbearing status. To continue on IV antibiotics; vancomycin and Zosyn. I will follow him very closely in house. He understands if lack of improvement is noted surgery will be recommended again. He understands this condition is limb and life-threatening. LEAS will be ordered as well for further evaluation of arterial flow. This is scheduled for after 15 o'clock today. Diabetes and medical management per medicine team is appreciated. Please not hesitate to call for any questions. Sarah Soto DPM, [facility] [phone]
--- NOTE | 2020-03-22 13:34 | NURSING ---
Was consulted on patient for left foot wound. Dr Soto in room currently and just changed dressing. did not remove dressing at this time to get wound photo.
[2020-03-22 14:24] LABS: Hemoglobin A1c 8.6 % (3.8-5.6)
[2020-03-22] MEDS: Acetaminophen 325 MG Tablet 650 MG PO (14:28)
[2020-03-22 14:34] VITALS: BP 158/87; PULSE 88; RESP 16; TEMP 36.6; O2SAT 98
[2020-03-22 16:16] LABS: Bedside Glucose 123 mg/dL (70-110)
--- NOTE | 2020-03-22 16:28 | PCM.HP.ID ---
Problem List (1) Diabetic foot infection Status: Acute Reason for Consult: foot infection Consulted by: Dr. Soto History of Present Illness: The patient is a 64 year old M with DM neuropathy, prior L foot TMA for osteo, presented with 10 days of L foot stump redness, swelling, drainage, some chills. No recent abx. Sx started after he got a blood blister on his foot. No pets licking his foot, no hot tubs or other unusual contaminants. Came to ED, admitted on vanc/unasyn, changed to vanc/zosyn. MRI done, seen by Dr. Soto. Feeling ok now. Full ROS performed and neg except as noted above. - Medical History Past Medical History (Chronic Problems): Chronic Problems (Last Reviewed 03/22/20 @ 05:[address] Quoc Victor MD) Alcoholism in recovery (Chronic) COPD (chronic obstructive pulmonary disease) (Chronic) Diabetic neuropathy (Chronic) CAD (coronary artery disease) (Chronic) Diabetes mellitus (Chronic) Hypothyroidism (Chronic) Reports has been more tired and lacking interest in doing things at this time. He feels he is gaining more weight and this he does not want. Rechech thyroid levels. CECILE treated with BiPAP (Chronic) PATIENT HAS OWN MACHINE. He feels he is doing well HTN (hypertension) (Chronic) Is on an paola inhibitor and tolerating well. BP 124/85 Morbid obesity with BMI of 40.0-44.9, adult (Chronic) Uncontrolled diabetes mellitus (Chronic) BG readings in the low 200 range. Seems to need more back ground insulin. He would probably benefit from use of U-500. He reports he has significant supply of insulin at this time and does want to use it up. Enc to monitor BG carefully Non-compliance (Chronic) Hyperlipidemia (Chronic) No recent labs available at time of visit. He reports he is not willing to use a statin. Will obtain labs from [facility] provider. No medical records available at time of visit. Venous stasis dermatitis (Chronic) Diabetic neuropathy associated with type 2 diabetes mellitus (Chronic) Charcot's joint of foot due to diabetes (Chronic) Allergies/Adverse Reactions: Allergies No Known Allergies Allergy (Verified 02/14/18 14:04) Home Medications: Ambulatory Orders Medication Instructions Recorded Lorazepam [Ativan] 1 mg PO BID PRN PRN 08/14/16 Ropinirole HCl [Requip] 0.25 mg PO QHS PRN 08/17/16 doxycycline hyclate 100 mg capsule 100 mg PO BID 02/14/18 enalapril maleate 20 mg tablet 20 mg PO QHS 02/14/18 fluticasone propionate 50 2 spray INTRANASAL DAILY PRN PRN 02/14/18 mcg/actuation nasal spray,suspension insulin aspart U-100 100 unit/mL 60 unit SC TIDCM ml 02/14/18 subcutaneous solution insulin detemir U-100 100 unit/mL 200 unit SC BID ml 02/14/18 subcutaneous solution levothyroxine 75 mcg tablet 225 mcg PO DAILY@0600 #90 tab 03/02/18 Amlodipine [Norvasc] 2.5 mg PO DAILY 03/21/20 Citalopram [Celexa] 20 mg PO DAILY 03/21/20 Duloxetine HCl 60 mg PO DAILY 03/21/20 Omeprazole 40 mg PO QHS 03/21/20 buPROPion SR [Wellbutrin SR (150mg 150 mg PO BID 03/21/20 tablets)] - Social History SMOKING STATUS:: Former smoker Vital Signs Temp Pulse Resp BP Pulse Ox 97.8 F 88 16 158/87 H 98 03/22/20 14:34 03/22/20 14:34 03/22/20 14:34 03/22/20 14:34 03/22/20 14:34 Oxygen Delivery Method Room Air Weight: 180.893 kg Body Mass Index (BMI) 55.6 Finger Stick Blood Glucose 198 Microbiology Past 72 Hours 03/21/20 23:35 Gram Stain - Final Wound - Aerobic & Anaerobic Swabs Wound Culture - Preliminary Staphylococcus species Laboratory Tests Past 24 Hrs 03/21/20 03/21/20 03/21/20 18:30 18:30 18:30 WBC 13.1 H RBC 4.94 Hgb 13.3 Hct 44.8 MCV 90.7 MCH 26.9 L MCHC 29.7 L RDW Std Deviation 53.8 H RDW Coeff of Jose 16.2 H Plt Count 349 MPV 10.1 Immature Gran % (Auto) 1.800 H Neut % (Auto) 71.0 H Lymph % (Auto) 15.2 L Walton % (Auto) 9.3 Eos % (Auto) 1.9 Baso % (Auto) 0.8 Absolute Neuts (auto) 9.3 H Absolute Lymphs (auto) 1.99 Nucleated RBC % 0 ESR Sodium 135 L Potassium 4.7 Chloride 107 Carbon Dioxide 22.0 Anion Gap 6 BUN 21 H Creatinine 1.55 H Estim Creat Clear Calc 52.63 Est GFR (MDRD) Af Amer 59 L Est GFR (MDRD) Non-Af 49 L BUN/Creatinine Ratio 13.5 Glucose 183 H Hemoglobin A1c Lactic Acid 1.0 Calcium 8.9 C-React Prot Ext Range S.aureus Protein A PCR MRSA (PCR) 03/21/20 03/21/20 03/21/20 18:30 18:30 23:35 WBC RBC Hgb Hct MCV MCH MCHC RDW Std Deviation RDW Coeff of Jose Plt Count MPV Immature Gran % (Auto) Neut % (Auto) Lymph % (Auto) Walton % (Auto) Eos % (Auto) Baso % (Auto) Absolute Neuts (auto) Absolute Lymphs (auto) Nucleated RBC % ESR 68 H Sodium Potassium Chloride Carbon Dioxide Anion Gap BUN Creatinine Estim Creat Clear Calc Est GFR (MDRD) Af Amer Est GFR (MDRD) Non-Af BUN/Creatinine Ratio Glucose Hemoglobin A1c Lactic Acid Calcium C-React Prot Ext Range 40.90 H S.aureus Protein A PCR POSITIVE H MRSA (PCR) POSITIVE H 03/22/20 03/22/20 03/22/20 05:26 05:26 05:26 WBC 10.3 RBC 4.58 L Hgb 12.4 L Hct 39.9 L MCV 87.1 MCH 27.1 MCHC 31.1 L RDW Std Deviation 50.3 H RDW Coeff of Jose 15.9 H Plt Count 319 MPV 10.1 Immature Gran % (Auto) 1.700 H Neut % (Auto) 68.4 Lymph % (Auto) 17.9 L Walton % (Auto) 9.0 Eos % (Auto) 2.4 Baso % (Auto) 0.6 Absolute Neuts (auto) 7.1 Absolute Lymphs (auto) 1.84 Nucleated RBC % 0 ESR Sodium 134 L Potassium 4.4 Chloride 103 Carbon Dioxide 26.0 Anion Gap 5 BUN 21 H Creatinine 1.48 H Estim Creat Clear Calc 55.12 Est GFR (MDRD) Af Amer 62 Est GFR (MDRD) Non-Af 51 L BUN/Creatinine Ratio 14.2 Glucose 202 H Hemoglobin A1c 8.6 H Lactic Acid Calcium 8.8 C-React Prot Ext Range S.aureus Protein A PCR MRSA (PCR) - Other Studies Radiology: [] reviewed Other Studies: [] Route of nutrition/ use of supplements: [] Nutritional Intake: [] IV Site: [] Abreu Catheter: [] - Physical Exam General: Alert, Oriented x3, Cooperative, No apparent distress HEENT: Atraumatic, PERRLA, EOMI Neck: Supple, No Nodes Lungs: Clear to auscultation, Normal air movement Cardiovascular: Regular rate, Regular Rhythm Abdomen: Soft, Non Tender, Non-Distended, Obese Extremities: Edema Skin: Ulcer/ Wound - L foot wrapped IV Site: Peripheral, without redness Musculoskeletal: No Tenderness to Palpation of Joints or Extremities Neurological: Cranial nerves II-XII grossly intact - Assessment/Plan Antibiotics: [] Assessment/Plan: [] Diabetic L foot stump infected wound - wound cx with staph so far. On vanc/zosyn. MRI showed no abscess or osteo. Plan will be for home with po abx and podiatry followup. Choice of abx will depend on further cx data. Has grown MRSA in distant past. MRSA pcr screen here of the wound was (+). Not a candidate for linezolid due to him being on 3 different ssri meds. Please call me prior to discharge so I can help with homegoing abx. Thank you, will follow, d/w Dr. Kessler.
[2020-03-22 22:20] VITALS: BP 148/91; PULSE 85; RESP 16; TEMP 36.9; O2SAT 94
[2020-03-22] MEDS: Lisinopril 20 MG Tablet PO (22:31)
[2020-03-22] MEDS: Pantoprazole Sodium 40 MG Tablet PO (22:32)
[2020-03-22] MEDS: 0.9% Saline Lock 10 ML Syringe IV ×2 (22:36→23:53)
[2020-03-23 00:01] LABS: Bedside Glucose 105 mg/dL (70-110)
[2020-03-23 00:01] LABS: Bedside Glucose 91 mg/dL (70-110)
[2020-03-23 04:02] VITALS: BP 128/64; PULSE 85; RESP 17; TEMP 36.6; O2SAT 95
[2020-03-23 06:43] LABS: Hematocrit 39.4 % (40-54); Hemoglobin 12.4 g/dL (13.0-16.5); Mean Corp Hgb Conc 31.5 g/dL (32-36); Mean Corpuscular Volume 85.7 fL (80-94); Mean Platelet Vol. 9.8 fl (6.2-12.0); Platelet Count 302 K/mm3 (150-450); RBC Distribution Width SD 49.3 fl (35.1-43.9); White Blood Count 9.3 K/mm3 (4.4-11.0)
[2020-03-23] MEDS: Levothyroxine 75 MCG Tablet 225 MCG PO (07:00)
[2020-03-23] MEDS: Heparin Injection (Vial) 5,000 UNIT/ML VIAL 5000 UNIT SC ×3 (07:00→21:18)
[2020-03-23 07:08] LABS: Anion Gap 7 (5-15); BUN 18 mg/dL (7-18); Chloride 104 mmol/L (98-107); Creatinine, Serum 1.38 mg/dL (0.70-1.30); EST Glomerular Filtration Rate 55 mL/min (>60); Est Glom Filt Rate - Afr Amer 67 mL/min (>60); Estimated Creatinine Clearance 59.11 ml/min; Glucose 173 mg/dL (74-106); Potassium 4.2 mmol/L (3.5-5.1); Sodium Level 134 mmol/L (136-145)
[2020-03-23 07:10] LABS: Vancomycin, Trough Level 20.2 ug/mL (5.0-15.0)
[2020-03-23 08:00] VITALS: O2SAT 94
[2020-03-23 08:17] VITALS: BP 158/91; PULSE 85; RESP 18; TEMP 36.3; O2SAT 100
[2020-03-23] MEDS: buPROPion (SR) 150 MG Tablet.SA PO ×2 (08:26→21:18)
[2020-03-23] MEDS: amLODIPine 2.5 MG Tablet PO (08:26)
[2020-03-23] MEDS: DULoxetine Hcl 60 MG Capsule PO (08:26)
[2020-03-23] MEDS: Citalopram 20 MG Tablet PO (08:27)
[2020-03-23] MEDS: Insulin Lispro 100 UNIT/ML INSULN.PEN 40 UNIT SC ×3 (08:28→18:13)
[2020-03-23 08:41] LABS: Bedside Glucose 125 mg/dL (70-110)
--- NOTE | 2020-03-23 09:45 | PN_ITS ---
Subjective: This 64-year-old male was seen bedside for left foot infected ulcer. He denies fever, chill, nausea or vomiting. He continues on IV antibiotics. He had his blood flow studies completed yesterday. He tries to stay off of the foot however does place weight on it to use the restroom. - Physical Exam Vitals/I&O's: Vital Signs Temp Pulse Resp BP Pulse Ox 97.4 F L 85 18 158/91 H 100 03/23/20 08:17 03/23/20 08:17 03/23/20 08:17 03/23/20 08:17 03/23/20 08:17 Oxygen Delivery Method Room Air Weight: 180.893 kg Body Mass Index (BMI) 55.6 Finger Stick Blood Glucose 198 Intake and Output for Last 24 Hours 03/21/20 03/22/20 03/23/20 23:59 23:59 23:59 Intake Total 652 / 1452 3840.00 / 4460.00 1610 / 1610 Balance 652 / 1452 3840.00 / 4460.00 1610 / 1610 General: Alert, Oriented x3, Cooperative HEENT: Atraumatic Extremities: No cyanosis, Capillary Refill Less than 3 Seconds - To the amputation stump site, No Calf Tenderness - Negative Addy and Latif sign, Diminished Peripheral Pulses, Edema, - - Modified Chopart amputation left. Compartments are soft to palpate left lower extremity Skin: Ulcer/ Wound - Ulcer pre-debridement 3.7 x 4.9 x 1 cm and post 3.8 x 5.0 x 1 cm improved granular base with decreased fibrous tissue and decreased devitalized necrotic tissue. There is also a 1.5 cm slit ulcer extension at the 3:00 location. There is no probe to bone or deeper structures. The peripheral callus was sharply debris with a 15 blade scalpel and base with a curette. Pressure was applied to maintain hemostasis. He tolerated it well and did not require local anesthesia due to his neuropathy. Excisional devitalized subcutaneous tissue, fibrous tissue, biofilm, and slough were debrided. Musculoskeletal: No Tenderness to Palpation of Joints or Extremities, Muscle Wasting Neurological: - - Lack of epicritic sensation is consistent with neuropathy status Psych/Mental Status: Normal Affect, Appropriate Microbiology Past 72 Hours 03/21/20 23:35 Wound - Aerobic & Anaerobic Swabs Gram Stain - Final 03/21/20 23:35 Wound - Aerobic & Anaerobic Swabs Wound Culture - Preliminary Staphylococcus aureus Gram negative steph Laboratory Results 03/22/20 05:26: Hemoglobin A1c 8.6 H 03/22/20 11:31: POC Glucose 125 H 03/22/20 16:12: POC Glucose 123 H 03/22/20 22:27: POC Glucose 91 03/22/20 23:49: POC Glucose 105 03/23/20 06:16: Vancomycin Trough 20.2 H 03/23/20 06:16: WBC 9.3, RBC 4.60, Hgb 12.4 L, Hct 39.4 L, MCV 85.7, MCH 27.0, MCHC 31.5 L, RDW Std Deviation 49.3 H, RDW Coeff of Jose 16.0 H, Plt Count 302, MPV 9.8 03/23/20 06:16: Sodium 134 L, Potassium 4.2, Chloride 104, Carbon Dioxide 23.0, Anion Gap 7, BUN 18, Creatinine 1.38 H, Estim Creat Clear Calc 59.11, Est GFR (MDRD) Af Amer 67, Est GFR (MDRD) Non-Af 55 L, BUN/Creatinine Ratio 13.0, Glucose 173 H, Calcium 9.0 03/23/20 08:14: POC Glucose 125 H Current Medications Acetaminophen (Tylenol) 650 mg PO Q6H PRN PRN PRN Reason: Pain Score 1-10/Temp > 100.7 F Last Admin: 03/22/20 14:28 Dose: 650 mg Documented by: Amlodipine Besylate (Norvasc) 2.5 mg PO DAILY [facility] Last Admin: 03/23/20 08:26 Dose: 2.5 mg Documented by: Bupropion HCl (Wellbutrin Sr (150mg Tablets)) 150 mg PO BID [facility] Last Admin: 03/23/20 08:26 Dose: 150 mg Documented by: Citalopram Hydrobromide (Celexa) 20 mg PO DAILY [facility] Last Admin: 03/23/20 08:27 Dose: 20 mg Documented by: Dextrose (D50w Syringe) 0 gm IV X1 PRN; Protocol PRN Reason: Hypoglycemia Duloxetine HCl (Cymbalta) 60 mg PO DAILY [facility] Last Admin: 03/23/20 08:26 Dose: 60 mg Documented by: Glucagon () 1 mg IM .X1 PRN PRN Reason: Hypoglycemia Heparin Sodium (Porcine) (Heparin Na) 5,000 unit SC Q8 [facility] Last Admin: 03/23/20 07:00 Dose: 5,000 unit Documented by: Piperacillin Sod/Tazobactam (Sod 3.375 gm/ Sodium Chloride) 50 mls @ 12.5 mls/hr IV Q8 [facility] Last Admin: 03/23/20 06:58 Dose: 12.5 mls/hr Documented by: Vancomycin IV Pharmacy to Dose (1 ea/ Sodium Chloride) 500 mls @ 250 mls/hr IV X1 PRN; Protocol PRN Reason: Rx to Dose Vancomycin HCl 2,000 mg/ (Sodium Chloride) 540 mls @ 250 mls/hr IV Q12H [facility] Last Admin: 03/23/20 06:56 Dose: 150 mls/hr Documented by: Sodium Chloride () 250 mls @ 15 mls/hr IV .[id number] PRN PRN Reason: Saline Flush Sodium Chloride () 250 mls @ 15 mls/hr IV .[id number] PRN PRN Reason: Additional IVPB Infusion Insulin Glargine (Lantus (Bkc)) 180 units SC BID [facility] Last Admin: 03/23/20 08:28 Dose: 180 u Documented by: Insulin Human Lispro (Humalog Kwikpen (Bkc)) 0 unit SC ACHS [facility]; Protocol Last Admin: 03/23/20 08:28 Dose: Not Given Documented by: Insulin Human Lispro (Humalog Kwikpen (Bkc)) 40 unit SC TIDCM [facility] Last Admin: 03/23/20 08:28 Dose: 40 u Documented by: Levothyroxine Sodium (Synthroid) 225 mcg PO DAILY@0600 [facility] Last Admin: 03/23/20 07:00 Dose: 225 mcg Documented by: Lisinopril (Zestril) 20 mg PO QHS [facility] Last Admin: 03/22/20 22:31 Dose: 20 mg Documented by: Lorazepam (Ativan) 1 mg PO BID PRN PRN PRN Reason: ANXIETY Last Admin: 03/21/20 23:13 Dose: 1 mg Documented by: Melatonin (Melatonin) 3 mg PO QHS PRN PRN PRN Reason: INSOMNIA Last Admin: 03/21/20 23:13 Dose: 3 mg Documented by: Ondansetron HCl (Zofran) 4 mg IV Q8H PRN PRN PRN Reason: NAUSEA/VOMITING Pantoprazole Sodium (Protonix) 40 mg PO QHS [facility] Last Admin: 03/22/20 22:32 Dose: 40 mg Documented by: Pramipexole Dihydrochloride (Mirapex) 0.125 mg PO QHS PRN PRN PRN Reason: RESTLESS LEG Last Admin: 03/21/20 23:13 Dose: 0.125 mg Documented by: Senna/Docusate Sodium (Senokot-S, Jolly-Colace) 2 tablet PO BID PRN PRN PRN Reason: Constipation Sodium Chloride () 10 - 40 ml IV UD PRN PRN Reason: SALINE FLUSH Last Admin: 03/22/20 23:53 Dose: 10 ml Documented by: Medical Necessity - Tobacco Use Smoking Status: Former smoker Assessment/Plan All Active Problems (Last Reviewed 03/22/20 @ 05:[address] Quoc Victor MD) Diabetic foot infection (Acute) Sepsis (Acute) Diabetic foot ulcer associated with type 2 diabetes mellitus (Acute) Acute renal failure (Resolved) COPD exacerbation (Resolved) Foot ulcer, left (Resolved) Hospital-acquired pneumonia (Resolved) Necrotizing fasciitis (Resolved) Non-ST elevated myocardial infarction (Resolved) Osteomyelitis of ankle or foot (Resolved) left foot neuropathic deep wound infection (Resolved) Deep ulceration down to fascia layer w/ necrosis left foot (MRSA +, gram neg steph) Cellulitis left foot improving Osteomyelitis left foot not detected on MRI; he has h/o chronic osteo Diabetic neuropathy Diabetes Multiple Comorbidities Reviewed diagnostic data. He is afebrile and his vital signs are stable. His leukocytosis is improving and his white blood cell count was downtrending with 9.3. His blood cultures are negative so far. The MRI does not demonstrate robson tional deep abscess or osteomyelitis. There is visualized skin discontinuity with adjacent subcutaneous edema noted. He will proceed forward with IV antibiotics and transition to p.o. antibiotics at discharge combined with advanced wound healing plan. He is on vancomycin and Zosyn at this time and infectious disease evaluation is appreciated. The dressing was changed today with Betadine and gauze. Debridement excisionally was performed as noted in the clinical exam. He has some improvement compared to yesterday and this will be monitored close. LEAS was performed yesterday. He has triphasic waveforms and his DOMINGUEZ was 1.0 on the left lower extremity. Additional intervention is not planned at this time. Diabetes and medical management per medicine team is appreciated. Please do not hesitate to call for any questions. Sarah Soto DPM, [facility] [phone]
--- NOTE | 2020-03-23 11:28 | PCM.RX.CS ---
<Dimitri Martinez - Last Filed: 03/23/20 11:28> Consult Pharmacy has been consulted to manage selected antiobiotic: Vancomycin Type of Consult: Follow-up Suspected Infection: Sepsis Labs: Sodium 134 mmol/L (136-145) L 03/23/20 06:16 Potassium 4.2 mmol/L (3.5-5.1) 03/23/20 06:16 Chloride 104 mmol/L (98-107) 03/23/20 06:16 Carbon Dioxide 23.0 mmol/L (21.0-32.0) 03/23/20 06:16 Anion Gap 7 (5-15) 03/23/20 06:16 BUN 18 mg/dL (7-18) 03/23/20 06:16 Creatinine 1.38 mg/dL (0.70-1.30) H 03/23/20 06:16 Est GFR (MDRD) Af Amer 67 mL/min (>60) 03/23/20 06:16 Est GFR (MDRD) Non-Af 55 mL/min (>60) L 03/23/20 06:16 BUN/Creatinine Ratio 13.0 RATIO (10-20) 03/23/20 06:16 Glucose 173 mg/dL (74-106) H 03/23/20 06:16 Vancomycin Trough 20.2 ug/mL (5.0-15.0) H 03/23/20 06:16 Microbiology: Microbiology 03/21/20 23:35 Wound - Aerobic & Anaerobic Swabs Gram Stain - Final 03/21/20 23:35 Wound - Aerobic & Anaerobic Swabs Wound Culture - Preliminary Staphylococcus aureus Gram negative steph Goal Trough: 15-20 mcg/mL Pharmacy Plan for Drug Dosing: VANCOMYCIN LEVEL RECEIVED Current Vancomycin Dose: 2000MG IV Q12H @ , Number of Doses Received: 2 + x1 in the ER Vancomycin Level: 20.2 (drawn 03/23 at 0656) Hours Since Last Dose: ~11.5 Renal Function: 1.38 (was 1.55) Renal Function Trend: improving slightly Lab/Micro: Vancomycin Plan/Comments: recommend decreasing to 1250mg q12h (dose based off of adjusted body weight. trough has shown that pt's body fat has been saturated). Pending Level: 03/25 @ 629 Pharmacy Service will continue to monitor and adjust dosing as required. Follow-Up Labs: Trough Vancomycin - 03/25 @ 0630 <Kory Kessler - Last Filed: 03/23/20 14:46> Consult Labs: Sodium 134 mmol/L (136-145) L 03/23/20 06:16 Potassium 4.2 mmol/L (3.5-5.1) 03/23/20 06:16 Chloride 104 mmol/L (98-107) 03/23/20 06:16 Carbon Dioxide 23.0 mmol/L (21.0-32.0) 03/23/20 06:16 Anion Gap 7 (5-15) 03/23/20 06:16 BUN 18 mg/dL (7-18) 03/23/20 06:16 Creatinine 1.38 mg/dL (0.70-1.30) H 03/23/20 06:16 Est GFR (MDRD) Af Amer 67 mL/min (>60) 03/23/20 06:16 Est GFR (MDRD) Non-Af 55 mL/min (>60) L 03/23/20 06:16 BUN/Creatinine Ratio 13.0 RATIO (10-20) 03/23/20 06:16 Glucose 173 mg/dL (74-106) H 03/23/20 06:16 Vancomycin Trough 20.2 ug/mL (5.0-15.0) H 03/23/20 06:16 Microbiology: Microbiology 03/21/20 23:35 Wound - Aerobic & Anaerobic Swabs Gram Stain - Final 03/21/20 23:35 Wound - Aerobic & Anaerobic Swabs Wound Culture - Preliminary Staphylococcus aureus Gram negative steph Pharmacy Plan for Drug Dosing: Pharmacy Service will continue to monitor and adjust dosing as required.
[2020-03-23 11:51] LABS: Bedside Glucose 76 mg/dL (70-110)
--- NOTE | 2020-03-23 12:20 | PCM.PROGNOTE ---
<Sinai Chong - Last Filed: 03/23/20 12:40> Subjective: Patient seen and examined. States he did not get much rest last night, complains of back pain related to uncomfortable bed. Denies fever, chills. Denies other current complaints. - Physical Exam Vitals/I&O's: Vital Signs Temp Pulse Resp BP Pulse Ox 97.4 F L 85 18 158/91 H 100 03/23/20 08:17 03/23/20 08:17 03/23/20 08:17 03/23/20 08:17 03/23/20 08:17 Oxygen Delivery Method Room Air Weight: 398 lb 12.8 oz Body Mass Index (BMI) 55.6 Finger Stick Blood Glucose 198 Intake and Output for Last 24 Hours 03/21/20 03/22/20 03/23/20 23:59 23:59 23:59 Intake Total 652 / 1452 3840.00 / 4460.00 2430 / 2430 Balance 652 / 1452 3840.00 / 4460.00 2430 / 2430 General: Alert, Oriented x3, Cooperative HEENT: Atraumatic, PERRLA, EOMI, Normocephalic Neck: Supple, No JVD, Negative Carotid Bruits Lungs: Clear to auscultation, Diminished Cardiovascular: Regular rate, No murmurs Abdomen: Bowel Sounds Present, Soft, Non Tender, Non-Distended, Obese Extremities: No clubbing, No cyanosis, No edema, Capillary Refill Less than 3 Seconds Skin: No rashes, No breakdown, - - Left foot wound, dressing changed this morning by podiatry. Dressing clean dry and intact. Musculoskeletal: No Tenderness to Palpation of Joints or Extremities Neurological: Cranial nerves II-XII grossly intact Psych/Mental Status: Normal Affect, Appropriate Microbiology Past 72 Hours 03/21/20 23:35 Wound - Aerobic & Anaerobic Swabs Gram Stain - Final 03/21/20 23:35 Wound - Aerobic & Anaerobic Swabs Wound Culture - Preliminary Staphylococcus aureus Gram negative steph Laboratory Results 03/22/20 05:26: Hemoglobin A1c 8.6 H 03/22/20 16:12: POC Glucose 123 H 03/22/20 22:27: POC Glucose 91 03/22/20 23:49: POC Glucose 105 03/23/20 06:16: Vancomycin Trough 20.2 H 03/23/20 06:16: WBC 9.3, RBC 4.60, Hgb 12.4 L, Hct 39.4 L, MCV 85.7, MCH 27.0, MCHC 31.5 L, RDW Std Deviation 49.3 H, RDW Coeff of Jose 16.0 H, Plt Count 302, MPV 9.8 03/23/20 06:16: Sodium 134 L, Potassium 4.2, Chloride 104, Carbon Dioxide 23.0, Anion Gap 7, BUN 18, Creatinine 1.38 H, Estim Creat Clear Calc 59.11, Est GFR (MDRD) Af Amer 67, Est GFR (MDRD) Non-Af 55 L, BUN/Creatinine Ratio 13.0, Glucose 173 H, Calcium 9.0 03/23/20 08:14: POC Glucose 125 H 03/23/20 11:37: POC Glucose 76 Current Medications Acetaminophen (Tylenol) 650 mg PO Q6H PRN PRN PRN Reason: Pain Score 1-10/Temp > 100.7 F Last Admin: 03/22/20 14:28 Dose: 650 mg Documented by: Amlodipine Besylate (Norvasc) 2.5 mg PO DAILY [facility] Last Admin: 03/23/20 08:26 Dose: 2.5 mg Documented by: Bupropion HCl (Wellbutrin Sr (150mg Tablets)) 150 mg PO BID [facility] Last Admin: 03/23/20 08:26 Dose: 150 mg Documented by: Citalopram Hydrobromide (Celexa) 20 mg PO DAILY [facility] Last Admin: 03/23/20 08:27 Dose: 20 mg Documented by: Dextrose (D50w Syringe) 0 gm IV X1 PRN; Protocol PRN Reason: Hypoglycemia Duloxetine HCl (Cymbalta) 60 mg PO DAILY [facility] Last Admin: 03/23/20 08:26 Dose: 60 mg Documented by: Glucagon () 1 mg IM .X1 PRN PRN Reason: Hypoglycemia Heparin Sodium (Porcine) (Heparin Na) 5,000 unit SC Q8 [facility] Last Admin: 03/23/20 07:00 Dose: 5,000 unit Documented by: Piperacillin Sod/Tazobactam (Sod 3.375 gm/ Sodium Chloride) 50 mls @ 12.5 mls/hr IV Q8 [facility] Last Infusion: 03/23/20 11:00 Dose: Infused Documented by: Vancomycin IV Pharmacy to Dose (1 ea/ Sodium Chloride) 500 mls @ 250 mls/hr IV X1 PRN; Protocol PRN Reason: Rx to Dose Vancomycin HCl 2,000 mg/ (Sodium Chloride) 540 mls @ 250 mls/hr IV Q12H [facility] Last Infusion: 03/23/20 10:28 Dose: Infused Documented by: Sodium Chloride () 250 mls @ 15 mls/hr IV .[id number] PRN PRN Reason: Saline Flush Sodium Chloride () 250 mls @ 15 mls/hr IV .[id number] PRN PRN Reason: Additional IVPB Infusion Insulin Glargine (Lantus ([facility])) 180 units SC BID [facility] Last Admin: 03/23/20 08:28 Dose: 180 u Documented by: Insulin Human Lispro (Humalog Kwikpen ([facility])) 0 unit SC ACHS [facility]; Protocol Last Admin: 03/23/20 11:39 Dose: Not Given Documented by: Insulin Human Lispro (Humalog Kwikpen ([facility])) 40 unit SC TIDCM [facility] Last Admin: 03/23/20 11:43 Dose: 40 u Documented by: Levothyroxine Sodium (Synthroid) 225 mcg PO DAILY@0600 [facility] Last Admin: 03/23/20 07:00 Dose: 225 mcg Documented by: Lisinopril (Zestril) 20 mg PO QHS [facility] Last Admin: 03/22/20 22:31 Dose: 20 mg Documented by: Lorazepam (Ativan) 1 mg PO BID PRN PRN PRN Reason: ANXIETY Last Admin: 03/21/20 23:13 Dose: 1 mg Documented by: Melatonin (Melatonin) 3 mg PO QHS PRN PRN PRN Reason: INSOMNIA Last Admin: 03/21/20 23:13 Dose: 3 mg Documented by: Ondansetron HCl (Zofran) 4 mg IV Q8H PRN PRN PRN Reason: NAUSEA/VOMITING Pantoprazole Sodium (Protonix) 40 mg PO QHS [facility] Last Admin: 03/22/20 22:32 Dose: 40 mg Documented by: Pramipexole Dihydrochloride (Mirapex) 0.125 mg PO QHS PRN PRN PRN Reason: RESTLESS LEG Last Admin: 03/21/20 23:13 Dose: 0.125 mg Documented by: Senna/Docusate Sodium (Senokot-S, Jolly-Colace) 2 tablet PO BID PRN PRN PRN Reason: Constipation Sodium Chloride () 10 - 40 ml IV UD PRN PRN Reason: SALINE FLUSH Last Admin: 03/22/20 23:53 Dose: 10 ml Documented by: Medical Necessity - Tobacco Use Smoking Status: Former smoker Assessment/Plan All Active Problems (Last Reviewed 03/22/20 @ 05:[address] Quoc Victor MD) Diabetic foot infection (Acute) Sepsis (Acute) Diabetic foot ulcer associated with type 2 diabetes mellitus (Acute) Acute renal failure (Resolved) COPD exacerbation (Resolved) Foot ulcer, left (Resolved) Hospital-acquired pneumonia (Resolved) Necrotizing fasciitis (Resolved) Non-ST elevated myocardial infarction (Resolved) Osteomyelitis of ankle or foot (Resolved) left foot neuropathic deep wound infection (Resolved) 1. Sepsis secondary to left foot diabetic ulceration-podiatry following. 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 No abscess. Continue IV vancomycin and IV Zosyn. Cultures pending, preliminary growing staph and gram-negative steph. Wound RN consult. Nonweightbearing left lower extremity. PT/OT. Dressing changes per podiatry. ID following. Plan for home on p.o. antibiotics and podiatry follow-up pending final cultures. 2. Type 2 diabetes mellitus with nephropathy and [id number] with sliding scale insulin. Continue home insulin regimen. Most recent hemoglobin A1c in 2016 9.3%. Repeat hemoglobin A1c 8.6%. 3. Chronic kidney disease stage III-at baseline, trend BMP. 4. Hypertension-stable, continue amlodipine, enalapril regimen. 5. Hypothyroidism-continue Synthroid regimen. 6. Depression/anxiety-continue Wellbutrin, Celexa, duloxetine regimen. Patient on PRN Ativan as well. 7. GERD-continue PPI. 8. Restless leg syndrome-continue PRN Requip. 9. CECILE-continue home Pap regimen. 10. Morbid obesity-encouraged diet and lifestyle modifications. Nutrition consult. DVT prophylaxis- heparin sc This patient was seen by EASTON Mcgregor under the supervision of Dr. Kessler. <Kroy Kessler - Last Filed: 03/23/20 14:52> Subjective: Patient complain of back pain because of his weight and uncomfortable bed. No fever or chills. Discussed with ID yesterday. Blood pressure in acceptable range. Objective: On physical exam General: Alert, Oriented x3, Cooperative HEENT: Atraumatic, PERRLA, EOMI, Normocephalic Neck: Supple, No JVD, Negative Carotid Bruits Lungs: Clear to auscultation, No rhonchi, No wheeze, No rales, Air entry diminished bilaterally. Cardiovascular: Regular rate, No murmurs Abdomen: Bowel Sounds Present, Soft, Non Tender, Non-Distended, Obese Extremities: Capillary Refill Less than 3 Seconds, Edema Skin: Ulcer over the lateral margin of the left hindfoot. Musculoskeletal: No Tenderness to Palpation of Joints or Extremities, Arthritic Changes Neurological: Cranial nerves II-XII grossly intact, Neuro grossly intact Psych/Mental Status: Normal Affect, Appropriate - Physical Exam Vitals/I&O's: Vital Signs Temp Pulse Resp BP Pulse Ox 98.5 F 84 18 150/81 H 98 03/23/20 14:12 03/23/20 14:12 03/23/20 14:12 03/23/20 14:12 03/23/20 14:12 Oxygen Delivery Method Room Air Weight: 398 lb 12.8 oz Body Mass Index (BMI) 55.6 Finger Stick Blood Glucose 198 Intake and Output for Last 24 Hours 03/21/20 03/22/20 03/23/20 23:59 23:59 23:59 Intake Total 652 / 1452 3840.00 / 4460.00 2430 / 2430 Balance 652 / 1452 3840.00 / 4460.00 2430 / 2430 Microbiology Past 72 Hours 03/21/20 23:35 Wound - Aerobic & Anaerobic Swabs Gram Stain - Final 03/21/20 23:35 Wound - Aerobic & Anaerobic Swabs Wound Culture - Preliminary Staphylococcus aureus Gram negative steph Laboratory Results 03/22/20 16:12: POC Glucose 123 H 03/22/20 22:27: POC Glucose 91 03/22/20 23:49: POC Glucose 105 03/23/20 06:16: Vancomycin Trough 20.2 H 03/23/20 06:16: WBC 9.3, RBC 4.60, Hgb 12.4 L, Hct 39.4 L, MCV 85.7, MCH 27.0, MCHC 31.5 L, RDW Std Deviation 49.3 H, RDW Coeff of Jose 16.0 H, Plt Count 302, MPV 9.8 03/23/20 06:16: Sodium 134 L, Potassium 4.2, Chloride 104, Carbon Dioxide 23.0, Anion Gap 7, BUN 18, Creatinine 1.38 H, Estim Creat Clear Calc 59.11, Est GFR (MDRD) Af Amer 67, Est GFR (MDRD) Non-Af 55 L, BUN/Creatinine Ratio 13.0, Glucose 173 H, Calcium 9.0 03/23/20 08:14: POC Glucose 125 H 03/23/20 11:37: POC Glucose 76 Current Medications Acetaminophen (Tylenol) 650 mg PO Q6H PRN PRN PRN Reason: Pain Score 1-10/Temp > 100.7 F Last Admin: 03/22/20 14:28 Dose: 650 mg Documented by: Amlodipine Besylate (Norvasc) 2.5 mg PO DAILY [facility] Last Admin: 03/23/20 08:26 Dose: 2.5 mg Documented by: Bupropion HCl (Wellbutrin Sr (150mg Tablets)) 150 mg PO BID [facility] Last Admin: 03/23/20 08:26 Dose: 150 mg Documented by: Citalopram Hydrobromide (Celexa) 20 mg PO DAILY [facility] Last Admin: 03/23/20 08:27 Dose: 20 mg Documented by: Dextrose (D50w Syringe) 0 gm IV X1 PRN; Protocol PRN Reason: Hypoglycemia Duloxetine HCl (Cymbalta) 60 mg PO DAILY [facility] Last Admin: 03/23/20 08:26 Dose: 60 mg Documented by: Glucagon () 1 mg IM .X1 PRN PRN Reason: Hypoglycemia Heparin Sodium (Porcine) (Heparin Na) 5,000 unit SC Q8 [facility] Last Admin: 03/23/20 14:00 Dose: 5,000 unit Documented by: Piperacillin Sod/Tazobactam (Sod 3.375 gm/ Sodium Chloride) 50 mls @ 12.5 mls/hr IV Q8 [facility] Last Admin: 03/23/20 14:09 Dose: 12.5 mls/hr Documented by: Vancomycin IV Pharmacy to Dose (1 ea/ Sodium Chloride) 500 mls @ 250 mls/hr IV X1 PRN; Protocol PRN Reason: Rx to Dose Vancomycin HCl 2,000 mg/ (Sodium Chloride) 540 mls @ 250 mls/hr IV Q12H [facility] Last Infusion: 03/23/20 10:28 Dose: Infused Documented by: Sodium Chloride () 250 mls @ 15 mls/hr IV .[id number] PRN PRN Reason: Saline Flush Sodium Chloride () 250 mls @ 15 mls/hr IV .[id number] PRN PRN Reason: Additional IVPB Infusion Insulin Glargine (Lantus ([facility])) 180 units SC BID [facility] Last Admin: 03/23/20 08:28 Dose: 180 u Documented by: Insulin Human Lispro (Humalog Kwikpen ([facility])) 0 unit SC ACHS [facility]; Protocol Last Admin: 03/23/20 11:39 Dose: Not Given Documented by: Insulin Human Lispro (Humalog Kwikpen ([facility])) 40 unit SC TIDCM [facility] Last Admin: 03/23/20 11:43 Dose: 40 u Documented by: Levothyroxine Sodium (Synthroid) 225 mcg PO DAILY@0600 [facility] Last Admin: 03/23/20 07:00 Dose: 225 mcg Documented by: Lisinopril (Zestril) 20 mg PO QHS [facility] Last Admin: 03/22/20 22:31 Dose: 20 mg Documented by: Lorazepam (Ativan) 1 mg PO BID PRN PRN PRN Reason: ANXIETY Last Admin: 03/21/20 23:13 Dose: 1 mg Documented by: Melatonin (Melatonin) 3 mg PO QHS PRN PRN PRN Reason: INSOMNIA Last Admin: 03/21/20 23:13 Dose: 3 mg Documented by: Ondansetron HCl (Zofran) 4 mg IV Q8H PRN PRN PRN Reason: NAUSEA/VOMITING Pantoprazole Sodium (Protonix) 40 mg PO QHS [facility] Last Admin: 03/22/20 22:32 Dose: 40 mg Documented by: Pramipexole Dihydrochloride (Mirapex) 0.125 mg PO QHS PRN PRN PRN Reason: RESTLESS LEG Last Admin: 03/21/20 23:13 Dose: 0.125 mg Documented by: Senna/Docusate Sodium (Senokot-S, Jolly-Colace) 2 tablet PO BID PRN PRN PRN Reason: Constipation Sodium Chloride () 10 - 40 ml IV UD PRN PRN Reason: SALINE FLUSH Last Admin: 03/22/20 23:53 Dose: 10 ml Documented by: Assessment/Plan This patient was seen in conjunction with Sinai KWAN. I have independently interviewed and examined the patient and reviewed pertinent history, examination findings, laboratory and plan of management. I have reviewed the note and agree with the documented findings with the few additional points. In brief, patient is 64-year-old gentleman with history of type 2 diabetes mellitus, complicated with diabetic nephropathy and neuropathy is being admitted for sepsis secondary to left foot diabetic ulcer: Preliminary Gram stain of wound culture shows staph aureus and gram-negative steph. Final choice of antibiotic based on culture report but currently on Vanco Zosyn. Patient had MRI foot which did not show soft tissue abscess or osteomyelitis but atrophic muscles of hindfoot. Meter Supervisor Dr. Quiles/Dr. Dotson saw the patient. Noninvasive Doppler arterial test shows triphasic waveforms and DOMINGUEZ 1.0 and left lower extremity. Debridement was done by metal weather stripper bedside. Type 2 diabetes mellitus: On home regimen of insulin. Last A1c in 2016 9.3%. Other comorbidities include CKD stage III at baseline, hypertension, hypothyroidism, anxiety and depression, GERD, restless leg syndrome, morbid obesity with obstructive sleep apnea: PT and OT. Continue home medications. DVT prophylaxis on heparin subcutaneous. I have discussed my assessment with Sinai KWAN and orders have been reviewed. Inpatient E&M: [id number] [facility] Hosp L2
[2020-03-23 14:12] VITALS: BP 150/81; PULSE 84; RESP 18; TEMP 36.9; O2SAT 98
[2020-03-23 16:46] LABS: Bedside Glucose 125 mg/dL (70-110)
[2020-03-23 19:43] VITALS: BP 150/77; PULSE 86; RESP 18; TEMP 36.8; O2SAT 97
[2020-03-23] MEDS: Pantoprazole Sodium 40 MG Tablet PO (21:18)
[2020-03-23] MEDS: Lisinopril 20 MG Tablet PO (21:18)
[2020-03-23] MEDS: Insulin Lispro 100 UNIT/ML INSULN.PEN SC (21:19)
[2020-03-23] MEDS: MELATONIN 3 MG TABLET PO (21:25)
[2020-03-23] MEDS: Pramipexole Di-HCl 0.125 MG Tablet PO (21:34)
[2020-03-23 21:40] LABS: Bedside Glucose 165 mg/dL (70-110)
[2020-03-24 02:20] VITALS: BP 117/53; PULSE 80; RESP 18; TEMP 36.6; O2SAT 95
[2020-03-24] MEDS: Levothyroxine 75 MCG Tablet 225 MCG PO (05:11)
[2020-03-24] MEDS: Heparin Injection (Vial) 5,000 UNIT/ML VIAL 5000 UNIT SC ×3 (05:11→21:31)
[2020-03-24 05:36] LABS: Hematocrit 42.2 % (40-54); Hemoglobin 12.9 g/dL (13.0-16.5); Mean Corp Hgb Conc 30.6 g/dL (32-36); Mean Corpuscular Hgb 26.5 pg (27.0-32.0); Mean Corpuscular Volume 86.8 fL (80-94); Platelet Count 334 K/mm3 (150-450); RBC Distribution Width CV 15.7 % (11.6-14.6); RBC Distribution Width SD 49.6 fl (35.1-43.9); Red Blood Count 4.86 M/mm3 (4.6-6.2); White Blood Count 9.5 K/mm3 (4.4-11.0)
[2020-03-24 05:50] LABS: Anion Gap 7 (5-15); BUN 20 mg/dL (7-18); BUN/Creat Ratio 13.7 RATIO (10-20); Calcium,Total 8.6 mg/dL (8.5-10.1); Chloride 107 mmol/L (98-107); Creatinine, Serum 1.46 mg/dL (0.70-1.30); EST Glomerular Filtration Rate 52 mL/min (>60); Est Glom Filt Rate - Afr Amer 63 mL/min (>60); Estimated Creatinine Clearance 55.87 ml/min; Glucose 113 mg/dL (74-106); Potassium 4.3 mmol/L (3.5-5.1); Sodium Level 134 mmol/L (136-145)
--- NOTE | 2020-03-24 06:22 | NURSING ---
Per pharmacy, ok to give Vancomycin late (after Zosyn finished) due to patient only having one IV access.
[2020-03-24 07:51] LABS: Bedside Glucose 100 mg/dL (70-110)
[2020-03-24 08:20] VITALS: BP 105/48; PULSE 82; RESP 18; TEMP 36.5; O2SAT 93
--- NOTE | 2020-03-24 08:45 | PN_ITS ---
Subjective: This 64-year-old male was seen bedside for left foot infected ulcer. He denies fever, chill, nausea or vomiting. - Physical Exam Vitals/I&O's: Vital Signs Temp Pulse Resp BP Pulse Ox 97.8 F 80 18 117/53 L 95 03/24/20 02:20 03/24/20 02:20 03/24/20 02:20 03/24/20 02:20 03/24/20 02:20 Oxygen Delivery Method CPAP Weight: 180.893 kg Body Mass Index (BMI) 55.6 Finger Stick Blood Glucose 198 Intake and Output for Last 24 Hours 03/22/20 03/23/20 03/24/20 23:59 23:59 23:59 Intake Total 3840.00 / 4460.00 3235 / 3235 50 / 50 Balance 3840.00 / 4460.00 3235 / 3235 50 / 50 General: Alert, Oriented x3, Cooperative HEENT: Atraumatic Extremities: No cyanosis, Capillary Refill Less than 3 Seconds, No Calf Tenderness - Negative Latif and Homans sign left, Edema, Peripheral Pulses Norm al, - - chopart (modified) amputation, left lower extremity Skin: Ulcer/ Wound - There is no purulence, odor, erythema, streaking, eschar, or deep probing to bone noted to ulcer on left foot. The ulcer bed has central granulation tissue with probing centrally of about 1 cm. There is peripheral fibrous base noted. The adjacent skin is hairless and atrophic Musculoskeletal: No Tenderness to Palpation of Joints or Extremities, - - Compartment soft to palpate left Neurological: - - Lack of epicritic sensation to light touch is consistent with neuropathy status Psych/Mental Status: Normal Affect, Appropriate Microbiology Past 72 Hours 03/21/20 18:20 Blood Culture (Wb) - Right Hand Blood Culture - Preliminary No growth in 48 hours. 03/21/20 18:00 Blood Culture (Wb) - Anticubital Right Blood Culture - Preliminary No growth in 48 hours. 03/21/20 23:35 Wound - Aerobic & Anaerobic Swabs Gram Stain - Final 03/21/20 23:35 Wound - Aerobic & Anaerobic Swabs Wound Culture - Preliminary Staphylococcus aureus Gram negative steph Laboratory Results 03/23/20 11:37: POC Glucose 76 03/23/20 16:41: POC Glucose 125 H 03/23/20 21:17: POC Glucose 165 H 03/24/20 05:10: WBC 9.5, RBC 4.86, Hgb 12.9 L, Hct 42.2, MCV 86.8, MCH 26.5 L, MCHC 30.6 L, RDW Std Deviation 49.6 H, RDW Coeff of Jose 15.7 H, Plt Count 334, MPV 10.0 03/24/20 05:10: Sodium 134 L, Potassium 4.3, Chloride 107, Carbon Dioxide 20.0 L , Anion Gap 7, BUN 20 H, Creatinine 1.46 H, Estim Creat Clear Calc 55.87, Est GFR (MDRD) Af Amer 63, Est GFR (MDRD) Non-Af 52 L, BUN/Creatinine Ratio 13.7, Glucose 113 H, Calcium 8.6 03/24/20 07:47: POC Glucose 100 Current Medications Acetaminophen (Tylenol) 650 mg PO Q6H PRN PRN PRN Reason: Pain Score 1-10/Temp > 100.7 F Last Admin: 03/22/20 14:28 Dose: 650 mg Documented by: Amlodipine Besylate (Norvasc) 2.5 mg PO DAILY [facility] Last Admin: 03/23/20 08:26 Dose: 2.5 mg Documented by: Bupropion HCl (Wellbutrin Sr (150mg Tablets)) 150 mg PO BID [facility] Last Admin: 03/23/20 21:18 Dose: 150 mg Documented by: Citalopram Hydrobromide (Celexa) 20 mg PO DAILY [facility] Last Admin: 03/23/20 08:27 Dose: 20 mg Documented by: Dextrose (D50w Syringe) 0 gm IV X1 PRN; Protocol PRN Reason: Hypoglycemia Duloxetine HCl (Cymbalta) 60 mg PO DAILY [facility] Last Admin: 03/23/20 08:26 Dose: 60 mg Documented by: Glucagon () 1 mg IM .X1 PRN PRN Reason: Hypoglycemia Heparin Sodium (Porcine) (Heparin Na) 5,000 unit SC Q8 [facility] Last Admin: 03/24/20 05:11 Dose: 5,000 unit Documented by: Piperacillin Sod/Tazobactam (Sod 3.375 gm/ Sodium Chloride) 50 mls @ 12.5 mls/hr IV Q8 [facility] Last Admin: 03/24/20 05:09 Dose: 12.5 mls/hr Documented by: Vancomycin IV Pharmacy to Dose (1 ea/ Sodium Chloride) 500 mls @ 250 mls/hr IV X1 PRN; Protocol PRN Reason: Rx to Dose Sodium Chloride () 250 mls @ 15 mls/hr IV .[id number] PRN PRN Reason: Saline Flush Sodium Chloride () 250 mls @ 15 mls/hr IV .[id number] PRN PRN Reason: Additional IVPB Infusion Vancomycin HCl 1,250 mg/ (Sodium Chloride) 275 mls @ 167 mls/hr IV Q12H [facility] Last Infusion: 03/23/20 20:27 Dose: Infused Documented by: Insulin Glargine (Lantus ([facility])) 180 units SC BID [facility] Last Admin: 03/23/20 21:20 Dose: 180 u Documented by: Insulin Human Lispro (Humalog Kwikpen ([facility])) 0 unit SC ACHS [facility]; Protocol Last Admin: 03/23/20 21:19 Dose: 2 u Documented by: Insulin Human Lispro (Humalog Kwikpen ([facility])) 40 unit SC TIDCM [facility] Last Admin: 03/23/20 18:13 Dose: 40 u Documented by: Levothyroxine Sodium (Synthroid) 225 mcg PO DAILY@0600 [facility] Last Admin: 03/24/20 05:11 Dose: 225 mcg Documented by: Lisinopril (Zestril) 20 mg PO QHS [facility] Last Admin: 03/23/20 21:18 Dose: 20 mg Documented by: Lorazepam (Ativan) 1 mg PO BID PRN PRN PRN Reason: ANXIETY Last Admin: 03/21/20 23:13 Dose: 1 mg Documented by: Melatonin (Melatonin) 3 mg PO QHS PRN PRN PRN Reason: INSOMNIA Last Admin: 03/23/20 21:25 Dose: 3 mg Documented by: Ondansetron HCl (Zofran) 4 mg IV Q8H PRN PRN PRN Reason: NAUSEA/VOMITING Pantoprazole Sodium (Protonix) 40 mg PO QHS [facility] Last Admin: 03/23/20 21:18 Dose: 40 mg Documented by: Pramipexole Dihydrochloride (Mirapex) 0.125 mg PO QHS PRN PRN PRN Reason: RESTLESS LEG Last Admin: 03/23/20 21:34 Dose: 0.125 mg Documented by: Senna/Docusate Sodium (Senokot-S, Jolly-Colace) 2 tablet PO BID PRN PRN PRN Reason: Constipation Sodium Chloride () 10 - 40 ml IV UD PRN PRN Reason: SALINE FLUSH Last Admin: 03/22/20 23:53 Dose: 10 ml Documented by: Medical Necessity - Tobacco Use Smoking Status: Former smoker Assessment/Plan All Active Problems (Last Reviewed 03/22/20 @ 05:[address] Quoc Victor MD) Diabetic foot infection (Acute) Sepsis (Acute) Diabetic foot ulcer associated with type 2 diabetes mellitus (Acute) Acute renal failure (Resolved) COPD exacerbation (Resolved) Foot ulcer, left (Resolved) Hospital-acquired pneumonia (Resolved) Necrotizing fasciitis (Resolved) Non-ST elevated myocardial infarction (Resolved) Osteomyelitis of ankle or foot (Resolved) left foot neuropathic deep wound infection (Resolved) Deep ulceration down to fascia layer w/ necrosis left foot (MRSA +, gram neg steph) Cellulitis left foot resolving Osteomyelitis left foot not detected on MRI; he has h/o chronic osteo Diabetic neuropathy Diabetes Multiple Comorbidities Reviewed diagnostic data. He is afebrile and his vital signs are stable. His leukocytosis is improving and his white blood cell count was downtrending with 9.5. His blood cultures are negative so far. The MRI does not demonstrate additional deep abscess or osteomyelitis. There is visualized skin discontinuity with adjacent subcutaneous edema noted. He will proceed forward w ith IV antibiotics and transition to p.o. antibiotics at discharge combined with advanced wound healing plan. He is on vancomycin and Zosyn at this time and infectious disease evaluation is appreciated. The dressing was changed today with Betadine and gauze. His ulcer site has stabilized. Diabetes and medical management per medicine team is appreciated. Noninvasive arterial studies demonstrate adequate perfusion for healing to the left lower extremity without gross abnormalities. I recommend home health for dressing care at time of discharge. Ok to d/c from a podiatry standpoint. To follow up at the wound healing center 1 week after discharge. Please do not hesitate to call for any questions. Sarah Soto DPM, [facility] [phone]
--- NOTE | 2020-03-24 08:51 | DCINST_ITS ---
Weight Bearing Status: No weight bearing - left lower extremity. Use assistive device Keep extremity elevated above heart level: Left Leg Call your doctor if your incision/area has: Continuous Slow Oozing, Sudden Increased Bleeding, Increased Pain/ Swelling, Increased Redness, Foul Smelling Discharge Call your doctor if you observe: Fever of 101 or Higher, Calf discomfort, Uncontrolled pain Cleanse incision/area with: Soap & Water, Keep Dressing Clean & Dry Additional Dressing/Incision Instructions:: change dressing daily with betadine soaked gauze, 4x4, ABD pad, kerlix, MAURILIO wrap. Allergies/Adverse Reactions: Allergies No Known Allergies Allergy (Verified 02/14/18 14:04) Medications to take at Discharge Lorazepam [Ativan] 1 mg PO BID PRN PRN 08/14/16 Ropinirole HCl [Requip] 0.25 mg PO QHS PRN 08/17/16 doxycycline hyclate 100 mg capsule 100 mg PO BID 02/14/18 enalapril maleate 20 mg tablet 20 mg PO QHS 02/14/18 fluticasone propionate 50 mcg/actuation nasal spray,suspension 2 spray INTRANASAL DAILY PRN PRN 02/14/18 insulin aspart U-100 100 unit/mL subcutaneous solution 60 unit SC TIDCM ml 02/14/18 insulin detemir U-100 100 unit/mL subcutaneous solution 200 unit SC BID ml 02/14/18 levothyroxine 75 mcg tablet 225 mcg PO DAILY@0600 #90 tab 03/02/18 Amlodipine [Norvasc] 2.5 mg PO DAILY 03/21/20 Citalopram [Celexa] 20 mg PO DAILY 03/21/20 Duloxetine HCl 60 mg PO DAILY 03/21/20 Omeprazole 40 mg PO QHS 03/21/20 buPROPion SR [Wellbutrin SR (150mg tablets)] 150 mg PO BID 03/21/20 Primary Care Physician: Maico Jones MD [Primary Care Provider] - Test Results: Test results from this visit will be discussed in further detail at your follow- up appointment, if applicable. Please Follow Up With: Clinic,Wound When: 1 week. [facility] sooner if questions- [phone]. Proposed Discharge Date: 03/25/20
[2020-03-24] MEDS: Insulin Lispro 100 UNIT/ML INSULN.PEN 40 UNIT SC ×3 (08:58→17:36)
--- NOTE | 2020-03-24 09:14 | NURSING ---
lab called and mrsa + to wound and dr staples aware
[2020-03-24] MEDS: buPROPion (SR) 150 MG Tablet.SA PO ×2 (10:36→21:33)
[2020-03-24] MEDS: amLODIPine 2.5 MG Tablet PO (10:36)
[2020-03-24] MEDS: DULoxetine Hcl 60 MG Capsule PO (10:37)
[2020-03-24] MEDS: Citalopram 20 MG Tablet PO (10:37)
[2020-03-24 12:01] LABS: Bedside Glucose 125 mg/dL (70-110)
[2020-03-24 12:46] VITALS: O2SAT 95
--- NOTE | 2020-03-24 13:13 | PN_ITS ---
<Sinai Chong - Last Filed: 03/24/20 13:18> Subjective: Patient seen and examined. Discussed option of discharge home later today or tomorrow morning. Patient would like to stay overnight. Cultures and sensitivities for wound resulted, patient will be discharged on oral antibiotics. He reports feeling tired and complains of being woken up frequently. Otherwise denies current complaints. - Physical Exam Vitals/I&O's: Vital Signs Temp Pulse Resp BP Pulse Ox 97.7 F L 82 18 105/48 L 95 03/24/20 08:20 03/24/20 08:20 03/24/20 08:20 03/24/20 08:20 03/24/20 12:46 Oxygen Delivery Method Room Air Weight: 398 lb 12.8 oz Body Mass Index (BMI) 55.6 Finger Stick Blood Glucose 198 Intake and Output for Last 24 Hours 03/22/20 03/23/20 03/24/20 23:59 23:59 23:59 Intake Total 3840.00 / 4460.00 3235 / 3235 775 / 775 Balance 3840.00 / 4460.00 3235 / 3235 775 / 775 General: Alert, Oriented x3, Cooperative HEENT: Atraumatic, PERRLA, EOMI, Normocephalic Neck: Supple, No JVD, Negative Carotid Bruits Lungs: Clear to auscultation, Diminished Cardiovascular: Regular rate, Regular Rhythm, Normal S1, Normal S2, No murmurs Abdomen: Bowel Sounds Present, Soft, Non Tender, Non-Distended, Obese Extremities: No clubbing, No cyanosis, No edema, Capillary Refill Less than 3 Seconds Skin: No rashes, No breakdown, - - Left foot wound, dressing changed this morning by podiatry. Dressing clean dry and intact. Musculoskeletal: No Tenderness to Palpation of Joints or Extremities Neurological: Cranial nerves II-XII grossly intact, Neuro grossly intact Psych/Mental Status: Normal Affect, Appropriate Microbiology Past 72 Hours 03/21/20 23:35 Wound - Aerobic & Anaerobic Swabs Gram Stain - Final 03/21/20 23:35 Wound - Aerobic & Anaerobic Swabs Wound Culture - Final Meth. resistant Staph. aureus Proteus penneri Gram positive steph 03/21/20 18:20 Blood Culture (Wb) - Right Hand Blood Culture - Preliminary No growth in 48 hours. 03/21/20 18:00 Blood Culture (Wb) - Anticubital Right Blood Culture - Preliminary No growth in 48 hours. Laboratory Results 03/23/20 16:41: POC Glucose 125 H 03/23/20 21:17: POC Glucose 165 H 03/24/20 05:10: WBC 9.5, RBC 4.86, Hgb 12.9 L, Hct 42.2, MCV 86.8, MCH 26.5 L, MCHC 30.6 L, RDW Std Deviation 49.6 H, RDW Coeff of Jose 15.7 H, Plt Count 334, MPV 10.0 03/24/20 05:10: Sodium 134 L, Potassium 4.3, Chloride 107, Carbon Dioxide 20.0 L , Anion Gap 7, BUN 20 H, Creatinine 1.46 H, Estim Creat Clear Calc 55.87, Est GFR (MDRD) Af Amer 63, Est GFR (MDRD) Non-Af 52 L, BUN/Creatinine Ratio 13.7, Glucose 113 H, Calcium 8.6 03/24/20 07:47: POC Glucose 100 03/24/20 11:57: POC Glucose 125 H Current Medications Acetaminophen (Tylenol) 650 mg PO Q6H PRN PRN PRN Reason: Pain Score 1-10/Temp > 100.7 F Last Admin: 03/22/20 14:28 Dose: 650 mg Documented by: Amlodipine Besylate (Norvasc) 2.5 mg PO DAILY [facility] Last Admin: 03/24/20 10:36 Dose: 2.5 mg Documented by: Bupropion HCl (Wellbutrin Sr (150mg Tablets)) 150 mg PO BID [facility] Last Admin: 03/24/20 10:36 Dose: 150 mg Documented by: Citalopram Hydrobromide (Celexa) 20 mg PO DAILY [facility] Last Admin: 03/24/20 10:37 Dose: 20 mg Documented by: Dextrose (D50w Syringe) 0 gm IV X1 PRN; Protocol PRN Reason: Hypoglycemia Duloxetine HCl (Cymbalta) 60 mg PO DAILY [facility] Last Admin: 03/24/20 10:37 Dose: 60 mg Documented by: Glucagon () 1 mg IM .X1 PRN PRN Reason: Hypoglycemia Heparin Sodium (Porcine) (Heparin Na) 5,000 unit SC Q8 [facility] Last Admin: 03/24/20 05:11 Dose: 5,000 unit Documented by: Piperacillin Sod/Tazobactam (Sod 3.375 gm/ Sodium Chloride) 50 mls @ 12.5 mls/hr IV Q8 [facility] Last Infusion: 03/24/20 09:09 Dose: Infused Documented by: Vancomycin IV Pharmacy to Dose (1 ea/ Sodium Chloride) 500 mls @ 250 mls/hr IV X1 PRN; Protocol PRN Reason: Rx to Dose Sodium Chloride () 250 mls @ 15 mls/hr IV .[id number] PRN PRN Reason: Saline Flush Sodium Chloride () 250 mls @ 15 mls/hr IV .[id number] PRN PRN Reason: Additional IVPB Infusion Vancomycin HCl 1,250 mg/ (Sodium Chloride) 275 mls @ 167 mls/hr IV Q12H [facility] Last Infusion: 03/24/20 10:34 Dose: Infused Documented by: Insulin Glargine (Lantus (Bkc)) 180 units SC BID [facility] Last Admin: 03/24/20 10:37 Dose: 180 u Documented by: Insulin Human Lispro (Humalog Kwikpen (Bkc)) 0 unit SC ACHS [facility]; Protocol Last Admin: 03/24/20 12:21 Dose: Not Given Documented by: Insulin Human Lispro (Humalog Kwikpen (Bkc)) 40 unit SC TIDCM [facility] Last Admin: 03/24/20 12:21 Dose: 40 u Documented by: Levothyroxine Sodium (Synthroid) 225 mcg PO DAILY@0600 [facility] Last Admin: 03/24/20 05:11 Dose: 225 mcg Documented by: Lisinopril (Zestril) 20 mg PO QHS [facility] Last Admin: 03/23/20 21:18 Dose: 20 mg Documented by: Lorazepam (Ativan) 1 mg PO BID PRN PRN PRN Reason: ANXIETY Last Admin: 03/21/20 23:13 Dose: 1 mg Documented by: Melatonin (Melatonin) 3 mg PO QHS PRN PRN PRN Reason: INSOMNIA Last Admin: 03/23/20 21:25 Dose: 3 mg Documented by: Ondansetron HCl (Zofran) 4 mg IV Q8H PRN PRN PRN Reason: NAUSEA/VOMITING Pantoprazole Sodium (Protonix) 40 mg PO QHS [facility] Last Admin: 03/23/20 21:18 Dose: 40 mg Documented by: Pramipexole Dihydrochloride (Mirapex) 0.125 mg PO QHS PRN PRN PRN Reason: RESTLESS LEG Last Admin: 03/23/20 21:34 Dose: 0.125 mg Documented by: Senna/Docusate Sodium (Senokot-S, Jolly-Colace) 2 tablet PO BID PRN PRN PRN Reason: Constipation Sodium Chloride () 10 - 40 ml IV UD PRN PRN Reason: SALINE FLUSH Last Admin: 03/22/20 23:53 Dose: 10 ml Documented by: Medical Necessity - Tobacco Use Smoking Status: Former smoker Assessment/Plan All Active Problems (Last Reviewed 03/22/20 @ 05:[address] Quoc Victor MD) Diabetic foot infection (Acute) Sepsis (Acute) Diabetic foot ulcer associated with type 2 diabetes mellitus (Acute) Acute renal failure (Resolved) COPD exacerbation (Resolved) Foot ulcer, left (Resolved) Hospital-acquired pneumonia (Resolved) Necrotizing fasciitis (Resolved) Non-ST elevated myocardial infarction (Resolved) Osteomyelitis of ankle or foot (Resolved) left foot neuropathic deep wound infection (Resolved) 1. Sepsis secondary to left foot diabetic ulceration-podiatry following. 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 No abscess. Continue IV vancomycin and IV Zosyn. Cultures MRSA 3+, Proteus penneri, gram pos steph. Wound RN consult. Nonweightbearing left lower extremity. PT/OT. Dressing changes per podiatry. ID following. Plan for discharge home tomorrow on Bactrim and Augmentin x1 week and podiatry follow-up. 2. Type 2 diabetes mellitus with nephropathy and [id number] with sliding scale insulin. Continue home insulin regimen. Most recent hemoglobin A1c in 2016 9.3%. Repeat hemoglobin A1c 8.6%. 3. Chronic kidney disease stage III-at baseline, trend BMP. 4. Hypertension-stable, continue amlodipine, enalapril regimen. 5. Hypothyroidism-continue Synthroid regimen. 6. Depression/anxiety-continue Wellbutrin, Celexa, duloxetine regimen. Patient on PRN Ativan as well. 7. GERD-continue PPI. 8. Restless leg syndrome-continue PRN Requip. 9. CECILE-continue home Pap regimen. 10. Morbid obesity-encouraged diet and lifestyle modifications. Nutrition consult. DVT prophylaxis- heparin sc Discharge planning: Plan for discharge home tomorrow with oral antibiotics and podiatry follow-up. This patient was seen by EASTON Mcgregor under the supervision of Dr. Kessler. <ChecoAlecKory - Last Filed: 03/24/20 13:51> Subjective: Result wound culture discussed with the patient. It shows MRSA 3+, Proteus primary and rare gram-positive rods. No fever or chills. Blood pressure is stable. Objective: General: Alert, Oriented x3, Cooperative, morbid obesity mainly central obesity HEENT: Atraumatic, PERRLA, EOMI, Normocephalic Neck: Supple, No JVD, Negative Carotid Bruits Lungs: Clear to auscultation, No rhonchi, No wheeze, No rales, Air entry diminished bilaterally. Cardiovascular: Regular rate, No murmurs Abdomen: Bowel Sounds Present, Soft, Non Tender, Non-Distended, Obese Extremities: Capillary Refill Less than 3 Seconds, Edema Skin: Ulcer over the lateral margin of the left hindfoot. Status post TMA Musculoskeletal: No Tenderness to Palpation of Joints or Extremities, Arthritic Changes Neurological: Cranial nerves II-XII grossly intact, Neuro grossly intact Psych/Mental Status: Normal Affect, Appropriate - Physical Exam Vitals/I&O's: Vital Signs Temp Pulse Resp BP Pulse Ox 97.7 F L 82 18 105/48 L 95 03/24/20 08:20 03/24/20 08:20 03/24/20 08:20 03/24/20 08:20 03/24/20 12:46 Oxygen Delivery Method Room Air Weight: 398 lb 12.8 oz Body Mass Index (BMI) 55.6 Finger Stick Blood Glucose 198 Intake and Output for Last 24 Hours 03/22/20 03/23/20 03/24/20 23:59 23:59 23:59 Intake Total 3840.00 / 4460.00 3235 / 3235 775 / 775 Balance 3840.00 / 4460.00 3235 / 3235 775 / 775 Microbiology Past 72 Hours 03/21/20 23:35 Wound - Aerobic & Anaerobic Swabs Gram Stain - Final 03/21/20 23:35 Wound - Aerobic & Anaerobic Swabs Wound Culture - Final Meth. resistant Staph. aureus Proteus penneri Gram positive steph 03/21/20 18:20 Blood Culture (Wb) - Right Hand Blood Culture - Preliminary No growth in 48 hours. 03/21/20 18:00 Blood Culture (Wb) - Anticubital Right Blood Culture - Preliminary No growth in 48 hours. Laboratory Results 03/23/20 16:41: POC Glucose 125 H 03/23/20 21:17: POC Glucose 165 H 03/24/20 05:10: WBC 9.5, RBC 4.86, Hgb 12.9 L, Hct 42.2, MCV 86.8, MCH 26.5 L, MCHC 30.6 L, RDW Std Deviation 49.6 H, RDW Coeff of Jose 15.7 H, Plt Count 334, MPV 10.0 03/24/20 05:10: Sodium 134 L, Potassium 4.3, Chloride 107, Carbon Dioxide 20.0 L , Anion Gap 7, BUN 20 H, Creatinine 1.46 H, Estim Creat Clear Calc 55.87, Est GFR (MDRD) Af Amer 63, Est GFR (MDRD) Non-Af 52 L, BUN/Creatinine Ratio 13.7, Glucose 113 H, Calcium 8.6 03/24/20 07:47: POC Glucose 100 03/24/20 11:57: POC Glucose 125 H Current Medications Acetaminophen (Tylenol) 650 mg PO Q6H PRN PRN PRN Reason: Pain Score 1-10/Temp > 100.7 F Last Admin: 03/22/20 14:28 Dose: 650 mg Documented by: Amlodipine Besylate (Norvasc) 2.5 mg PO DAILY [facility] Last Admin: 03/24/20 10:36 Dose: 2.5 mg Documented by: Bupropion HCl (Wellbutrin Sr (150mg Tablets)) 150 mg PO BID [facility] Last Admin: 03/24/20 10:36 Dose: 150 mg Documented by: Citalopram Hydrobromide (Celexa) 20 mg PO DAILY [facility] Last Admin: 03/24/20 10:37 Dose: 20 mg Documented by: Dextrose (D50w Syringe) 0 gm IV X1 PRN; Protocol PRN Reason: Hypoglycemia Duloxetine HCl (Cymbalta) 60 mg PO DAILY [facility] Last Admin: 03/24/20 10:37 Dose: 60 mg Documented by: Glucagon () 1 mg IM .X1 PRN PRN Reason: Hypoglycemia Heparin Sodium (Porcine) (Heparin Na) 5,000 unit SC Q8 [facility] Last Admin: 03/24/20 05:11 Dose: 5,000 unit Documented by: Piperacillin Sod/Tazobactam (Sod 3.375 gm/ Sodium Chloride) 50 mls @ 12.5 mls/hr IV Q8 [facility] Last Infusion: 03/24/20 09:09 Dose: Infused Documented by: Vancomycin IV Pharmacy to Dose (1 ea/ Sodium Chloride) 500 mls @ 250 mls/hr IV X1 PRN; Protocol PRN Reason: Rx to Dose Sodium Chloride () 250 mls @ 15 mls/hr IV .[id number] PRN PRN Reason: Saline Flush Sodium Chloride () 250 mls @ 15 mls/hr IV .[id number] PRN PRN Reason: Additional IVPB Infusion Vancomycin HCl 1,250 mg/ (Sodium Chloride) 275 mls @ 167 mls/hr IV Q12H [facility] Last Infusion: 03/24/20 10:34 Dose: Infused Documented by: Insulin Glargine (Lantus (Bkc)) 180 units SC BID [facility] Last Admin: 03/24/20 10:37 Dose: 180 u Documented by: Insulin Human Lispro (Humalog Kwikpen (Bkc)) 0 unit SC ACHS [facility]; Protocol Last Admin: 03/24/20 12:21 Dose: Not Given Documented by: Insulin Human Lispro (Humalog Kwikpen (Bkc)) 40 unit SC TIDCM [facility] Last Admin: 03/24/20 12:21 Dose: 40 u Documented by: Levothyroxine Sodium (Synthroid) 225 mcg PO DAILY@0600 [facility] Last Admin: 03/24/20 05:11 Dose: 225 mcg Documented by: Lisinopril (Zestril) 20 mg PO QHS [facility] Last Admin: 03/23/20 21:18 Dose: 20 mg Documented by: Lorazepam (Ativan) 1 mg PO BID PRN PRN PRN Reason: ANXIETY Last Admin: 03/21/20 23:13 Dose: 1 mg Documented by: Melatonin (Melatonin) 3 mg PO QHS PRN PRN PRN Reason: INSOMNIA Last Admin: 03/23/20 21:25 Dose: 3 mg Documented by: Ondansetron HCl (Zofran) 4 mg IV Q8H PRN PRN PRN Reason: NAUSEA/VOMITING Pantoprazole Sodium (Protonix) 40 mg PO QHS [facility] Last Admin: 03/23/20 21:18 Dose: 40 mg Documented by: Pramipexole Dihydrochloride (Mirapex) 0.125 mg PO QHS PRN PRN PRN Reason: RESTLESS LEG Last Admin: 03/23/20 21:34 Dose: 0.125 mg Documented by: Senna/Docusate Sodium (Senokot-S, Jolly-Colace) 2 tablet PO BID PRN PRN PRN Reason: Constipation Sodium Chloride () 10 - 40 ml IV UD PRN PRN Reason: SALINE FLUSH Last Admin: 03/22/20 23:53 Dose: 10 ml Documented by: Assessment/Plan This patient was seen in conjunction with Sinai KWAN. I have independently interviewed and examined the patient and reviewed pertinent history, examination findings, laboratory and plan of management. I have reviewed the note and agree with the documented findings with the few additional points. In brief, patient is 64-year-old gentleman with history of type 2 diabetes mellitus, complicated with diabetic nephropathy and neuropathy is being admitted for sepsis secondary to left foot diabetic ulcer: Wound culture shows MRSA, Proteus Penry and gram-positive steph. Patient had MRI foot which did not show soft tissue abscess or osteomyelitis but atrophic muscles of hindfoot. [employer]box Repairer Dr. Quiles/Dr. Dotson saw the patient. Noninvasive Doppler arterial test shows triphasic waveforms and DOMINGUEZ 1.0 and left lower extremity. Debridement was done by sustainability director bedside. Type 2 diabetes mellitus: On home regimen of insulin. Last A1c in 2016 9.3%. Other comorbidities include CKD stage III at baseline, hypertension, hypothyroidism, anxiety and depression, GERD, restless leg syndrome, morbid obesity with obstructive sleep apnea: PT and OT. Continue home medications. DVT prophylaxis on heparin subcutaneous. Plan is to discharge on Bactrim and Augmentin for 1 week and podiatry follow-up tomorrow a.m. I have discussed my assessment with Sinai KWAN and orders have been reviewed. Inpatient E&M: 42052 [facility] Hosp L2
[2020-03-24 16:32] VITALS: BP 141/86; PULSE 86; RESP 18; TEMP 37; O2SAT 95
[2020-03-24 16:51] LABS: Bedside Glucose 93 mg/dL (70-110)
[2020-03-24 20:30] VITALS: BP 128/64; PULSE 89; RESP 16; TEMP 36.6; O2SAT 100
[2020-03-24] MEDS: Lisinopril 20 MG Tablet PO ×2 (21:34→21:42)
[2020-03-24] MEDS: Pantoprazole Sodium 40 MG Tablet PO ×2 (21:34→21:42)
[2020-03-24] MEDS: Insulin Lispro 100 UNIT/ML INSULN.PEN SC (21:41)
[2020-03-24 21:55] LABS: Bedside Glucose 168 mg/dL (70-110)
[2020-03-25] MEDS: LORazepam 1 MG Tablet PO (01:56)
[2020-03-25 02:30] VITALS: BP 123/60; PULSE 89; RESP 18; TEMP 36.6; O2SAT 97
[2020-03-25 06:54] LABS: Anion Gap 8 (5-15); BUN 21 mg/dL (7-18); BUN/Creat Ratio 12.9 RATIO (10-20); Calcium,Total 8.7 mg/dL (8.5-10.1); Chloride 105 mmol/L (98-107); Creatinine, Serum 1.63 mg/dL (0.70-1.30); EST Glomerular Filtration Rate 46 mL/min (>60); Est Glom Filt Rate - Afr Amer 55 mL/min (>60); Estimated Creatinine Clearance 50.05 ml/min; Glucose 252 mg/dL (74-106); Potassium 4.4 mmol/L (3.5-5.1); Sodium Level 134 mmol/L (136-145)
[2020-03-25] MEDS: Heparin Injection (Vial) 5,000 UNIT/ML VIAL 5000 UNIT SC (06:56)
[2020-03-25] MEDS: Insulin Lispro 100 UNIT/ML INSULN.PEN SC (07:00)
[2020-03-25] MEDS: Levothyroxine 75 MCG Tablet 225 MCG PO (07:02)
[2020-03-25 07:06] LABS: Bedside Glucose 212 mg/dL (70-110)
[2020-03-25 07:08] LABS: Vancomycin, Trough Level 14.1 ug/mL (5.0-15.0)
--- NOTE | 2020-03-25 08:07 | NURSING ---
Called RX about 0700 vanc. [facility] is looking into medication to send.
--- NOTE | 2020-03-25 08:22 | PCM.RX.CS ---
Consult Pharmacy has been consulted to manage selected antiobiotic: Vancomycin Type of Consult: Follow-up Suspected Infection: Skin/Soft tissue Prior Doses of Antibiotics Received/Current Regimen: Vancomycin 1250mg IV Q12hr. last dose 03/24 @2019 Labs: Sodium 134 mmol/L (136-145) L 03/25/20 06:15 Potassium 4.4 mmol/L (3.5-5.1) 03/25/20 06:15 Chloride 105 mmol/L (98-107) 03/25/20 06:15 Carbon Dioxide 21.0 mmol/L (21.0-32.0) 03/25/20 06:15 Anion Gap 8 (5-15) 03/25/20 06:15 BUN 21 mg/dL (7-18) H 03/25/20 06:15 Creatinine 1.63 mg/dL (0.70-1.30) H 03/25/20 06:15 Est GFR (MDRD) Af Amer 55 mL/min (>60) L 03/25/20 06:15 Est GFR (MDRD) Non-Af 46 mL/min (>60) L 03/25/20 06:15 BUN/Creatinine Ratio 12.9 RATIO (10-20) 03/25/20 06:15 Glucose 252 mg/dL (74-106) H 03/25/20 06:15 Vancomycin Trough 14.1 ug/mL (5.0-15.0) 03/25/20 06:15 Microbiology: Microbiology 03/21/20 23:35 Wound - Aerobic & Anaerobic Swabs Gram Stain - Final 03/21/20 23:35 Wound - Aerobic & Anaerobic Swabs Wound Culture - Final Meth. resistant Staph. aureus Proteus penneri Gram positive steph 03/21/20 23:35 Wound - Aerobic & Anaerobic Swabs Anaerobic Culture - Preliminary 03/21/20 18:20 Blood Culture (Wb) - Right Hand Blood Culture - Preliminary No growth in 48 hours. 03/21/20 18:00 Blood Culture (Wb) - Anticubital Right Blood Culture - Preliminary No growth in 48 hours. Goal Trough: 15-20 mcg/mL Pharmacy Plan for Drug Dosing: The patient had a vancomycin tough drawn which resulted in a value of 14/1 (~10hr from last dose). The trough goal is 15-20. Since the patient is subtherapeutic, will increase the dose slightly to 1500mg IV Q12hrs. Trough draw prior to 4th dose of new regimen. Patient has had previously elevated troughs, will monitor closely. PLAN/RECOMMENDATIONS 1. Vancomycin 1500mg IV Q12hrs 2. Trough 03/26 @2029 3. Pharmacy Service will continue to monitor and adjust dosing as required.
[2020-03-25 08:55] VITALS: BP 142/72; PULSE 85; RESP 18; TEMP 35.9; O2SAT 97
[2020-03-25] MEDS: buPROPion (SR) 150 MG Tablet.SA PO (09:02)
[2020-03-25] MEDS: Insulin Lispro 100 UNIT/ML INSULN.PEN 40 UNIT SC (09:02)
[2020-03-25] MEDS: amLODIPine 2.5 MG Tablet PO (09:02)
[2020-03-25] MEDS: DULoxetine Hcl 60 MG Capsule PO (09:03)
[2020-03-25] MEDS: Citalopram 20 MG Tablet PO (09:03)
[2020-03-25 09:16] LABS: Bedside Glucose 210 mg/dL (70-110)
--- NOTE | 2020-03-25 09:40 | DCINST_ITS ---
You will use the following diet at home:: Calorie/Carbohydrate Controlled (specify 1200, 1400, etc), Cardiac Discharge Activity: Return to Normal Activity Weight Bearing Status: No weight bearing - left lower extremity. Use assistive device Keep extremity elevated above heart level: Left Leg Call your doctor if your incision/area has: Continuous Slow Oozing, Sudden Increased Bleeding, Increased Pain/ Swelling, Increased Redness, Foul Smelling Discharge Call your doctor if you observe: Fever of 101 or Higher, Calf discomfort, Uncontrolled pain Cleanse incision/area with: Soap & Water, Keep Dressing Clean & Dry Additional Dressing/Incision Instructions:: change dressing daily with betadine soaked gauze, 4x4, ABD pad, kerlix, MAURILIO wrap. Allergies/Adverse Reactions: Allergies No Known Allergies Allergy (Verified 02/14/18 14:04) Medications to take at Discharge Lorazepam [Ativan] 1 mg PO BID PRN PRN 08/14/16 Ropinirole HCl [Requip] 0.25 mg PO QHS PRN 08/17/16 enalapril maleate 20 mg tablet 20 mg PO QHS 02/14/18 fluticasone propionate 50 mcg/actuation nasal spray,suspension 2 spray INTRANASAL DAILY PRN PRN 02/14/18 insulin aspart U-100 100 unit/mL subcutaneous solution 60 unit SC TIDCM ml 02/14/18 insulin detemir U-100 100 unit/mL subcutaneous solution 200 unit SC BID ml 02/14/18 levothyroxine 75 mcg tablet 225 mcg PO DAILY@0600 #90 tab 03/02/18 Amlodipine [Norvasc] 2.5 mg PO DAILY 03/21/20 Citalopram [Celexa] 20 mg PO DAILY 03/21/20 Duloxetine HCl 60 mg PO DAILY 03/21/20 Omeprazole 40 mg PO QHS 03/21/20 buPROPion SR [Wellbutrin SR (150mg tablets)] 150 mg PO BID 03/21/20 Amox/Clavulanate Tablet [Augmentin Tablet] 875 mg PO Q12H #14 tab 03/25/20 Smz/Tmp Ds [Bactrim Ds] 1 tab PO BID #14 tab 03/25/20 The following prescriptions were given: Amox/Clavulanate Tablet [Augmentin Tablet] 875 mg PO Q12H #14 tab Transmission Status: Pending to [facility] Smz/Tmp Ds [Bactrim Ds] 1 tab PO BID #14 tab Transmission Status: Pending to [facility] Primary Care Physician: Maico Jones MD [Primary Care Provider] - Please follow up with your Primary Care Physician in: 1 Week Test Results: Test results from this visit will be discussed in further detail at your follow- up appointment, if applicable. Please Follow Up With: Clinic,Wound When: 1 week. [facility] sooner if questions- [phone]. Proposed Discharge Date: 03/25/20
--- NOTE | 2020-03-25 09:41 | DS.PCM_ITS ---
<Sinai Chong - Last Filed: 03/25/20 09:52> Discharge Date and Diagnosis Date of Admission: 03/21/20 Date of Discharge: 03/25/20 - Primary Discharge Diagnosis Acute Problems: 1. Sepsis secondary to left foot diabetic ulceration 2. 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 Chronic kidney disease stage III 4. Hypertension 5. Hypothyroidism 6. Depression/anxiety 7. GERD 8. Restless leg syndrome 9. CECILE 10. Morbid obesity. - Secondary Discharge Diagnosis Chronic Problems: Chronic Problems (Last Reviewed 03/22/20 @ 05:[address] Quoc Victor MD) Alcoholism in recovery (Chronic) COPD (chronic obstructive pulmonary disease) (Chronic) Diabetic neuropathy (Chronic) CAD (coronary artery disease) (Chronic) Diabetes mellitus (Chronic) Hypothyroidism (Chronic) Reports has been more tired and lacking interest in doing things at this time. He feels he is gaining more weight and this he does not want. Rechech thyroid levels. CECILE treated with BiPAP (Chronic) PATIENT HAS OWN MACHINE. He feels he is doing well HTN (hypertension) (Chronic) Is on an maurilio inhibitor and tolerating well. BP 124/85 Morbid obesity with BMI of 40.0-44.9, adult (Chronic) Uncontrolled diabetes mellitus (Chronic) BG readings in the low 200 range. Seems to need more back ground insulin. He would probably benefit from use of U-500. He reports he has significant supply of insulin at this time and does want to use it up. Enc to monitor BG carefully Non-compliance (Chronic) Hyperlipidemia (Chronic) No recent labs available at time of visit. He reports he is not willing to use a statin. Will obtain labs from [facility] provider. No medical records available at time of visit. Venous stasis dermatitis (Chronic) Diabetic neuropathy associated with type 2 diabetes mellitus (Chronic) Charcot's joint of foot due to diabetes (Chronic) Hospital Course and Treatment Imaging Results: Diagnostic Data Foot X-Ray 03/21/20 18:41 IMPRESSION: Marked deformities from previous mid foot amputations. No definite focal destructive process of the bones. Extensive soft tissue abnormalities consistent with probable skin wounds and possible infection. 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 Edema in the subcutis adipose space without demonstrated soft tissue abscess. Atrophy of the intrinsic muscles of the hindfoot/remaining midfoot. Electronically Signed: Josh Figueroa MD at 10:27 EDT Tel , Service support , Consultations 03/22/20 12:45 Consult: Onc/Wound/gis engineer Routine Comment: Operations: None Procedures: None Summary of Care Provided: The patient is a 64 year old M admitted 03/21/20 due to left foot wound. 1. Sepsis secondary to left foot diabetic ulceration-podiatry consulted during admission. 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 No abscess. IV vancomycin and IV Zosyn during admission. Cultures MRSA 3+, Proteus penneri, gram pos steph. Wound RN consult. Nonweightbearing left lower extremity. Dressing changes per podiatry. ID following. Discharge home on Bactrim and Augmentin x1 week and podiatry follow-up. 2. Type 2 diabetes mellitus with nephropathy and ihliflhmyf-[id number]-[id number] with sliding scale insulin. Continue home insulin regimen. Most recent hemoglobin A1c in 2016 9.3%. Repeat hemoglobin A1c 8.6%. 3. Chronic kidney disease stage III-at baseline, trend BMP. 4. Hypertension-stable, continue amlodipine, enalapril regimen. 5. Hypothyroidism-continue Synthroid regimen. 6. Depression/anxiety-continue Wellbutrin, Celexa, duloxetine regimen. Patient on PRN Ativan as well. 7. GERD-continue PPI. 8. Restless leg syndrome-continue PRN Requip. 9. CECILE-continue home Pap regimen. 10. Morbid obesity-encouraged diet and lifestyle modifications. Nutrition consult. General: Alert, Oriented x3, Cooperative HEENT: Atraumatic, PERRLA, EOMI, Normocephalic Neck: Supple, No JVD, Negative Carotid Bruits Lungs: Clear to auscultation, Diminished Cardiovascular: Regular rate, Regular Rhythm, Normal S1, Normal S2, No murmurs Abdomen: Bowel Sounds Present, Soft, Non Tender, Non-Distended, Obese Extremities: No clubbing, No cyanosis, No edema, Capillary Refill Less than 3 Seconds Skin: No rashes, No breakdown, - - Left foot wound, dressing changed this morning by podiatry. Dressing clean dry and intact. Musculoskeletal: No Tenderness to Palpation of Joints or Extremities Neurological: Cranial nerves II-XII grossly intact, Neuro grossly intact Psych/Mental Status: Normal Affect, Appropriate Patient seen and examined prior to discharge. Physical assessment as noted above. Patient is stable for discharge with follow up recommendations as noted above. This patient was seen by EASTON Mcgregor under the supervision of Dr. Flanagan. - Physical Exam Vitals/I&O's: Vital Signs Temp Pulse Resp BP Pulse Ox 96.6 F L 85 18 142/72 H 97 03/25/20 08:55 03/25/20 08:55 03/25/20 08:55 03/25/20 08:55 03/25/20 08:55 Oxygen Delivery Method Room Air Weight: 398 lb 12.8 oz Body Mass Index (BMI) 55.6 Finger Stick Blood Glucose 198 Intake and Output for Last 24 Hours 03/23/20 03/24/20 03/25/20 23:59 23:59 23:59 Intake Total 3235 / 3235 1850 / 2200 1000 / 1000 Output Total 350 / 675 975 / 975 Balance 3235 / 3235 1500 / 1525 Microbiology Past 72 Hours 03/21/20 23:35 Wound - Aerobic & Anaerobic Swabs Gram Stain - Final 03/21/20 23:35 Wound - Aerobic & Anaerobic Swabs Wound Culture - Final Meth. resistant Staph. aureus Proteus penneri Gram positive steph 03/21/20 23:35 Wound - Aerobic & Anaerobic Swabs Anaerobic Culture - Preliminary 03/21/20 18:20 Blood Culture (Wb) - Right Hand Blood Culture - Preliminary No growth in 48 hours. 03/21/20 18:00 Blood Culture (Wb) - Anticubital Right Blood Culture - Preliminary No growth in 48 hours. Laboratory Results 03/24/20 11:57: POC Glucose 125 H 03/24/20 16:30: POC Glucose 93 03/24/20 21:38: POC Glucose 168 H 03/25/20 06:15: Vancomycin Trough 14.1 03/25/20 06:15: Sodium 134 L, Potassium 4.4, Chloride 105, Carbon Dioxide 21.0, Anion Gap 8, BUN 21 H, Creatinine 1.63 H, Estim Creat Clear Calc 50.05, Est GFR (MDRD) Af Amer 55 L, Est GFR (MDRD) Non-Af 46 L, BUN/Creatinine Ratio 12.9, Glucose 252 H, Calcium 8.7 03/25/20 06:59: POC Glucose 212 H 03/25/20 09:01: POC Glucose 210 H Current Medications Acetaminophen (Tylenol) 650 mg PO Q6H PRN PRN PRN Reason: Pain Score 1-10/Temp > 100.7 F Last Admin: 03/22/20 14:28 Dose: 650 mg Documented by: Amlodipine Besylate (Norvasc) 2.5 mg PO DAILY [facility] Last Admin: 03/25/20 09:02 Dose: 2.5 mg Documented by: Bupropion HCl (Wellbutrin Sr (150mg Tablets)) 150 mg PO BID [facility] Last Admin: 03/25/20 09:02 Dose: 150 mg Documented by: Citalopram Hydrobromide (Celexa) 20 mg PO DAILY [facility] Last Admin: 03/25/20 09:03 Dose: 20 mg Documented by: Dextrose (D50w Syringe) 0 gm IV X1 PRN; Protocol PRN Reason: Hypoglycemia Duloxetine HCl (Cymbalta) 60 mg PO DAILY [facility] Last Admin: 03/25/20 09:03 Dose: 60 mg Documented by: Glucagon () 1 mg IM .X1 PRN PRN Reason: Hypoglycemia Heparin Sodium (Porcine) (Heparin Na) 5,000 unit SC Q8 [facility] Last Admin: 03/25/20 06:56 Dose: 5,000 unit Documented by: Piperacillin Sod/Tazobactam (Sod 3.375 gm/ Sodium Chloride) 50 mls @ 12.5 mls/hr IV Q8 [facility] Last Admin: 03/25/20 07:03 Dose: 12.5 mls/hr Documented by: Vancomycin IV Pharmacy to Dose (1 ea/ Sodium Chloride) 500 mls @ 250 mls/hr IV X1 PRN; Protocol PRN Reason: Rx to Dose Sodium Chloride () 250 mls @ 15 mls/hr IV .[id number] PRN PRN Reason: Saline Flush Sodium Chloride () 250 mls @ 15 mls/hr IV .[id number] PRN PRN Reason: Additional IVPB Infusion Vancomycin HCl 1,500 mg/ (Sodium Chloride) 530 mls @ 250 mls/hr IV Q12H [facility] Insulin Glargine (Lantus (Bk)) 180 units SC BID [facility] Last Admin: 03/24/20 21:41 Dose: 180 u Documented by: Insulin Human Lispro (Humalog Kwikpen ([facility])) 0 unit SC ACHS [facility]; Protocol Last Admin: 03/25/20 07:00 Dose: 4 u Documented by: Insulin Human Lispro (Humalog Kwikpen ([facility])) 40 unit SC TIDCM [facility] Last Admin: 03/25/20 09:02 Dose: 40 u Documented by: Levothyroxine Sodium (Synthroid) 225 mcg PO DAILY@0600 [facility] Last Admin: 03/25/20 07:02 Dose: 225 mcg Documented by: Lisinopril (Zestril) 20 mg PO QHS [facility] Last Admin: 03/24/20 21:42 Dose: 20 mg Documented by: Lorazepam (Ativan) 1 mg PO BID PRN PRN PRN Reason: ANXIETY Last Admin: 03/25/20 01:56 Dose: 1 mg Documented by: Melatonin (Melatonin) 3 mg PO QHS PRN PRN PRN Reason: INSOMNIA Last Admin: 03/23/20 21:25 Dose: 3 mg Documented by: Ondansetron HCl (Zofran) 4 mg IV Q8H PRN PRN PRN Reason: NAUSEA/VOMITING Pantoprazole Sodium (Protonix) 40 mg PO QHS [facility] Last Admin: 03/24/20 21:42 Dose: 40 mg Documented by: Pramipexole Dihydrochloride (Mirapex) 0.125 mg PO QHS PRN PRN PRN Reason: RESTLESS LEG Last Admin: 03/23/20 21:34 Dose: 0.125 mg Documented by: Senna/Docusate Sodium (Senokot-S, Jolly-Colace) 2 tablet PO BID PRN PRN PRN Reason: Constipation Sodium Chloride () 10 - 40 ml IV UD PRN PRN Reason: SALINE FLUSH Last Admin: 03/22/20 23:53 Dose: 10 ml Documented by: Discharge Diet: Low fat/ Low Cholesterol, Carb Control Diet Discharge Activity: Return to Normal Activity Weight Bearing Status: No weight bearing - left lower extremity. Use assistive device Keep extremity elevated above heart level: Left Leg Call your doctor if your incision/area has: Continuous Slow Oozing, Sudden Increased Bleeding, Increased Pain/ Swelling, Increased Redness, Foul Smelling Discharge Call your doctor if you observe: Fever of 101 or Higher, Calf discomfort, Uncontrolled pain Cleanse incision/area with: Soap & Water, Keep Dressing Clean & Dry Additional Dressing/Incision Instructions:: change dressing daily with betadine soaked gauze, 4x4, ABD pad, kerlix, MAURILIO wrap. Home Medications: Medications to take at Discharge Lorazepam [Ativan] 1 mg PO BID PRN PRN 08/14/16 Ropinirole HCl [Requip] 0.25 mg PO QHS PRN 08/17/16 enalapril maleate 20 mg tablet 20 mg PO QHS 02/14/18 fluticasone propionate 50 mcg/actuation nasal spray,suspension 2 spray INTRANASAL DAILY PRN PRN 02/14/18 insulin aspart U-100 100 unit/mL subcutaneous solution 60 unit SC TIDCM ml 02/14/18 insulin detemir U-100 100 unit/mL subcutaneous solution 200 unit SC BID ml 02/14/18 levothyroxine 75 mcg tablet 225 mcg PO DAILY@0600 #90 tab 03/02/18 Amlodipine [Norvasc] 2.5 mg PO DAILY 03/21/20 Citalopram [Celexa] 20 mg PO DAILY 03/21/20 Duloxetine HCl 60 mg PO DAILY 03/21/20 Omeprazole 40 mg PO QHS 03/21/20 buPROPion SR [Wellbutrin SR (150mg tablets)] 150 mg PO BID 03/21/20 Amox/Clavulanate Tablet [Augmentin Tablet] 875 mg PO Q12H #14 tab 03/25/20 Smz/Tmp Ds [Bactrim Ds] 1 tab PO BID #14 tab 03/25/20 Following Prescrptions Were Given to Patient: Amox/Clavulanate Tablet [Augmentin Tablet] 875 mg PO Q12H #14 tab Transmission Status: Received by TIERNEY MOSLEY RD Smz/Tmp Ds [Bactrim Ds] 1 tab PO BID #14 tab Transmission Status: Received by TIERNEY MOSLEY RD Primary Care Physician: Maico Jones MD [Primary Care Provider] - Please follow up with your Primary Care Physician in: 1 Week Please Follow Up With: Clinic,Wound When: 1 week. [facility] sooner if questions- [phone]. Disposition: Home Minutes spent on discharge:: 35 Patient Condition:: Stable Medical Necessity - Tobacco Use Smoking Status: Former smoker Meaningful Use Info Meaningful Use Diagnoses (Choose all that apply): None applicable <Dimitri Flanagan - Last Filed: 03/25/20 11:51> Discharge Date and Diagnosis - Primary Discharge Diagnosis Acute Problems: Active Problems (Last Reviewed 03/22/20 @ 05:[address] Quoc Victor MD) Left foot infection (Acute) Left foot infection (Acute) - Secondary Discharge Diagnosis Chronic Problems: Chronic Problems (Last Reviewed 03/22/20 @ 05:[address] Quoc Victor MD) Alcoholism in recovery (Chronic) COPD (chronic obstructive pulmonary disease) (Chronic) Diabetic neuropathy (Chronic) CAD (coronary artery disease) (Chronic) Diabetes mellitus (Chronic) Hypothyroidism (Chronic) Reports has been more tired and lacking interest in doing things at this time. He feels he is gaining more weight and this he does not want. Rechech thyroid levels. CECILE treated with BiPAP (Chronic) PATIENT HAS OWN MACHINE. He feels he is doing well HTN (hypertension) (Chronic) Is on an maurilio inhibitor and tolerating well. BP 124/85 Morbid obesity with BMI of 40.0-44.9, adult (Chronic) Uncontrolled diabetes mellitus (Chronic) BG readings in the low 200 range. Seems to need more back ground insulin. He would probably benefit from use of U-500. He reports he has significant supply of insulin at this time and does want to use it up. Enc to monitor BG carefully Non-compliance (Chronic) Hyperlipidemia (Chronic) No recent labs available at time of visit. He reports he is not willing to use a statin. Will obtain labs from [facility] provider. No medical records available at time of visit. Venous stasis dermatitis (Chronic) Diabetic neuropathy associated with type 2 diabetes mellitus (Chronic) Charcot's joint of foot due to diabetes (Chronic) Hospital Course and Treatment Consultations 03/22/20 12:45 Consult: Onc/Wound/gis engineer Routine Comment: Summary of Care Provided: The patient is a 64 year old M [] - Physical Exam Vitals/I&O's: Vital Signs Temp Pulse Resp BP Pulse Ox 96.6 F L 85 18 142/72 H 97 03/25/20 08:55 03/25/20 08:55 03/25/20 08:55 03/25/20 08:55 03/25/20 08:55 Oxygen Delivery Method Room Air Weight: 398 lb 12.8 oz Body Mass Index (BMI) 55.6 Finger Stick Blood Glucose 198 Intake and Output for Last 24 Hours 03/23/20 03/24/20 03/25/20 23:59 23:59 23:59 Intake Total 3235 / 3235 1850 / 2200 1050 / 1050 Output Total 350 / 675 975 / 975 Balance 3235 / 3235 1500 / 1525 75 / 75 Microbiology Past 72 Hours 03/21/20 23:35 Wound - Aerobic & Anaerobic Swabs Gram Stain - Final 03/21/20 23:35 Wound - Aerobic & Anaerobic Swabs Wound Culture - Final Meth. resistant Staph. aureus Proteus penneri Gram positive steph 03/21/20 23:35 Wound - Aerobic & Anaerobic Swabs Anaerobic Culture - Preliminary 03/21/20 18:20 Blood Culture (Wb) - Right Hand Blood Culture - Preliminary No growth in 48 hours. 03/21/20 18:00 Blood Culture (Wb) - Anticubital Right Blood Culture - Preliminary No growth in 48 hours. Laboratory Results 03/24/20 11:57: POC Glucose 125 H 03/24/20 16:30: POC Glucose 93 03/24/20 21:38: POC Glucose 168 H 03/25/20 06:15: Vancomycin Trough 14.1 03/25/20 06:15: Sodium 134 L, Potassium 4.4, Chloride 105, Carbon Dioxide 21.0, Anion Gap 8, BUN 21 H, Creatinine 1.63 H, Estim Creat Clear Calc 50.05, Est GFR (MDRD) Af Amer 55 L, Est GFR (MDRD) Non-Af 46 L, BUN/Creatinine Ratio 12.9, Glucose 252 H, Calcium 8.7 03/25/20 06:59: POC Glucose 212 H 03/25/20 09:01: POC Glucose 210 H 03/25/20 10:56: POC Glucose 168 H Current Medications Acetaminophen (Tylenol) 650 mg PO Q6H PRN PRN PRN Reason: Pain Score 1-10/Temp > 100.7 F Last Admin: 03/22/20 14:28 Dose: 650 mg Documented by: Amlodipine Besylate (Norvasc) 2.5 mg PO DAILY [facility] Last Admin: 03/25/20 09:02 Dose: 2.5 mg Documented by: Bupropion HCl (Wellbutrin Sr (150mg Tablets)) 150 mg PO BID [facility] Last Admin: 03/25/20 09:02 Dose: 150 mg Documented by: Citalopram Hydrobromide (Celexa) 20 mg PO DAILY [facility] Last Admin: 03/25/20 09:03 Dose: 20 mg Documented by: Dextrose (D50w Syringe) 0 gm IV X1 PRN; Protocol PRN Reason: Hypoglycemia Duloxetine HCl (Cymbalta) 60 mg PO DAILY [facility] Last Admin: 03/25/20 09:03 Dose: 60 mg Documented by: Glucagon () 1 mg IM .X1 PRN PRN Reason: Hypoglycemia Heparin Sodium (Porcine) (Heparin Na) 5,000 unit SC Q8 [facility] Last Admin: 03/25/20 06:56 Dose: 5,000 unit Documented by: Piperacillin Sod/Tazobactam (Sod 3.375 gm/ Sodium Chloride) 50 mls @ 12.5 mls/hr IV Q8 [facility] Last Infusion: 03/25/20 11:03 Dose: Infused Documented by: Vancomycin IV Pharmacy to Dose (1 ea/ Sodium Chloride) 500 mls @ 250 mls/hr IV X1 PRN; Protocol PRN Reason: Rx to Dose Sodium Chloride () 250 mls @ 15 mls/hr IV .[id number] PRN PRN Reason: Saline Flush Sodium Chloride () 250 mls @ 15 mls/hr IV .[id number] PRN PRN Reason: Additional IVPB Infusion Vancomycin HCl 1,500 mg/ (Sodium Chloride) 530 mls @ 250 mls/hr IV Q12H [facility] Insulin Glargine (Lantus (Bkc)) 180 units SC BID [facility] Last Admin: 03/25/20 10:48 Dose: 180 u Documented by: Insulin Human Lispro (Humalog Kwikpen (Bk)) 0 unit SC ACHS [facility]; Protocol Last Admin: 03/25/20 07:00 Dose: 4 u Documented by: Insulin Human Lispro (Humalog Kwikpen ([facility])) 40 unit SC TIDCM [facility] Last Admin: 03/25/20 09:02 Dose: 40 u Documented by: Levothyroxine Sodium (Synthroid) 225 mcg PO DAILY@0600 [facility] Last Admin: 03/25/20 07:02 Dose: 225 mcg Documented by: Lisinopril (Zestril) 20 mg PO QHS [facility] Last Admin: 03/24/20 21:42 Dose: 20 mg Documented by: Lorazepam (Ativan) 1 mg PO BID PRN PRN PRN Reason: ANXIETY Last Admin: 03/25/20 01:56 Dose: 1 mg Documented by: Melatonin (Melatonin) 3 mg PO QHS PRN PRN PRN Reason: INSOMNIA Last Admin: 03/23/20 21:25 Dose: 3 mg Documented by: Ondansetron HCl (Zofran) 4 mg IV Q8H PRN PRN PRN Reason: NAUSEA/VOMITING Pantoprazole Sodium (Protonix) 40 mg PO QHS [facility] Last Admin: 03/24/20 21:42 Dose: 40 mg Documented by: Pramipexole Dihydrochloride (Mirapex) 0.125 mg PO QHS PRN PRN PRN Reason: RESTLESS LEG Last Admin: 03/23/20 21:34 Dose: 0.125 mg Documented by: Senna/Docusate Sodium (Senokot-S, Jolly-Colace) 2 tablet PO BID PRN PRN PRN Reason: Constipation Sodium Chloride () 10 - 40 ml IV UD PRN PRN Reason: SALINE FLUSH Last Admin: 03/22/20 23:53 Dose: 10 ml Documented by: Addendum: Dr. Flanagan I personally examined the patient and reviewed the chart. I agree with the above. 62-year-old male with history of type 2 diabetes with diabetic nephropathy and neuropathy presented to the hospital with sepsis secondary to his left foot ulcer. Podiatry evaluated the patient and did not feel that the needs any surgery at this time. He did grow MRSA and a Proteus and therefore he was discharged on Bactrim and Augmentin with outpatient wound care, since he did have bedside debridement by podiatry. He was stable for discharge yesterday however he did not feel comfortable going home and requests to stay 1 more day. He is wanting to go home today and he is stable for discharge. Inpatient E&M: [id number] Disch Hosp
--- NOTE | 2020-03-25 10:13 | PN_ITS ---
Subjective: This 64-year-old male with multiple comorbidities seen bedside for left foot ulcer. His infection appears to be resolving. He is scheduled for discharge home later today. - Physical Exam Vitals/I&O's: Vital Signs Temp Pulse Resp BP Pulse Ox 96.6 F L 85 18 142/72 H 97 03/25/20 08:55 03/25/20 08:55 03/25/20 08:55 03/25/20 08:55 03/25/20 08:55 Oxygen Delivery Method Room Air Weight: 180.893 kg Body Mass Index (BMI) 55.6 Finger Stick Blood Glucose 198 Intake and Output for Last 24 Hours 03/23/20 03/24/20 03/25/20 23:59 23:59 23:59 Intake Total 3235 / 3235 1850 / 2200 1000 / 1000 Output Total 350 / 675 975 / 975 Balance 3235 / 3235 1500 / 1525 General: Alert, Oriented x3, Cooperative Extremities: No cyanosis, Capillary Refill Less than 3 Seconds, No Calf Tenderness, Edema, Peripheral Pulses Normal, - - modified chopart amputation, left Skin: Ulcer/ Wound - Hyper granulation centrally with peripheral fibrous tissue. No purulence, odor, erythema, streaking, deep necrosis or probe to bone left. Adjacent skin is hairless and atrophic. He there is no bogginess or fluctuance on palpation. The compartments of the left lower extremity remain soft Musculoskeletal: No Tenderness to Palpation of Joints or Extremities, Muscle Wasting Neurological: - - Lack of normal epicritic sensation light touch is consistent with neuropathy Psych/Mental Status: Normal Affect, Appropriate Microbiology Past 72 Hours 03/21/20 23:35 Wound - Aerobic & Anaerobic Swabs Gram Stain - Final 03/21/20 23:35 Wound - Aerobic & Anaerobic Swabs Wound Culture - Final Meth. resistant Staph. aureus Proteus penneri Gram positive steph 03/21/20 23:35 Wound - Aerobic & Anaerobic Swabs Anaerobic Culture - Preliminary 03/21/20 18:20 Blood Culture (Wb) - Right Hand Blood Culture - Preliminary No growth in 48 hours. 03/21/20 18:00 Blood Culture (Wb) - Anticubital Right Blood Culture - Preliminary No growth in 48 hours. Laboratory Results 03/24/20 11:57: POC Glucose 125 H 03/24/20 16:30: POC Glucose 93 03/24/20 21:38: POC Glucose 168 H 03/25/20 06:15: Vancomycin Trough 14.1 03/25/20 06:15: Sodium 134 L, Potassium 4.4, Chloride 105, Carbon Dioxide 21.0, Anion Gap 8, BUN 21 H, Creatinine 1.63 H, Estim Creat Clear Calc 50.05, Est GFR (MDRD) Af Amer 55 L, Est GFR (MDRD) Non-Af 46 L, BUN/Creatinine Ratio 12.9, Glucose 252 H, Calcium 8.7 03/25/20 06:59: POC Glucose 212 H 03/25/20 09:01: POC Glucose 210 H Current Medications Acetaminophen (Tylenol) 650 mg PO Q6H PRN PRN PRN Reason: Pain Score 1-10/Temp > 100.7 F Last Admin: 03/22/20 14:28 Dose: 650 mg Documented by: Amlodipine Besylate (Norvasc) 2.5 mg PO DAILY [facility] Last Admin: 03/25/20 09:02 Dose: 2.5 mg Documented by: Bupropion HCl (Wellbutrin Sr (150mg Tablets)) 150 mg PO BID [facility] [place] Last Admin: 03/25/20 09:02 Dose: 150 mg Documented by: Citalopram Hydrobromide (Celexa) 20 mg PO DAILY [facility] [place] Last Admin: 03/25/20 09:03 Dose: 20 mg Documented by: Dextrose (D50w Syringe) 0 gm IV X1 PRN; Protocol PRN Reason: Hypoglycemia Duloxetine HCl (Cymbalta) 60 mg PO DAILY [facility] [place] Last Admin: 03/25/20 09:03 Dose: 60 mg Documented by: Glucagon () 1 mg IM .X1 PRN PRN Reason: Hypoglycemia Heparin Sodium (Porcine) (Heparin Na) 5,000 unit SC Q8 [facility] [place] Last Admin: 03/25/20 06:56 Dose: 5,000 unit Documented by: Piperacillin Sod/Tazobactam (Sod 3.375 gm/ Sodium Chloride) 50 mls @ 12.5 mls/hr IV Q8 [facility] [place] Last Admin: 03/25/20 07:03 Dose: 12.5 mls/hr Documented by: Vancomycin IV Pharmacy to Dose (1 ea/ Sodium Chloride) 500 mls @ 250 mls/hr IV X1 PRN; Protocol PRN Reason: Rx to Dose Sodium Chloride () 250 mls @ 15 mls/hr IV .[id number] PRN PRN Reason: Saline Flush Sodium Chloride () 250 mls @ 15 mls/hr IV .[id number] PRN PRN Reason: Additional IVPB Infusion Vancomycin HCl 1,500 mg/ (Sodium Chloride) 530 mls @ 250 mls/hr IV Q12H [facility] Insulin Glargine (Lantus ([facility])) 180 units SC BID [facility] Last Admin: 03/24/20 21:41 Dose: 180 u Documented by: Insulin Human Lispro (Humalog Kwikpen ([facility])) 0 unit SC ACHS [facility]; Protocol Last Admin: 03/25/20 07:00 Dose: 4 u Documented by: Insulin Human Lispro (Humalog Kwikpen ([facility])) 40 unit SC TIDCM [facility] Last Admin: 03/25/20 09:02 Dose: 40 u Documented by: Levothyroxine Sodium (Synthroid) 225 mcg PO DAILY@0600 [facility] Last Admin: 03/25/20 07:02 Dose: 225 mcg Documented by: Lisinopril (Zestril) 20 mg PO QHS [facility] Last Admin: 03/24/20 21:42 Dose: 20 mg Documented by: Lorazepam (Ativan) 1 mg PO BID PRN PRN PRN Reason: ANXIETY Last Admin: 03/25/20 01:56 Dose: 1 mg Documented by: Melatonin (Melatonin) 3 mg PO QHS PRN PRN PRN Reason: INSOMNIA Last Admin: 03/23/20 21:25 Dose: 3 mg Documented by: Ondansetron HCl (Zofran) 4 mg IV Q8H PRN PRN PRN Reason: NAUSEA/VOMITING Pantoprazole Sodium (Protonix) 40 mg PO QHS [facility] Last Admin: 03/24/20 21:42 Dose: 40 mg Documented by: Pramipexole Dihydrochloride (Mirapex) 0.125 mg PO QHS PRN PRN PRN Reason: RESTLESS LEG Last Admin: 03/23/20 21:34 Dose: 0.125 mg Documented by: Senna/Docusate Sodium (Senokot-S, Jolly-Colace) 2 tablet PO BID PRN PRN PRN Reason: Constipation Sodium Chloride () 10 - 40 ml IV UD PRN PRN Reason: SALINE FLUSH Last Admin: 03/22/20 23:53 Dose: 10 ml Documented by: Medical Necessity - Tobacco Use Smoking Status: Former smoker Assessment/Plan All Active Problems (Last Reviewed 03/22/20 @ 05:[address] Quoc Victor MD) Diabetic foot infection (Acute) Sepsis (Acute) Diabetic foot ulcer associated with type 2 diabetes mellitus (Acute) Acute renal failure (Resolved) COPD exacerbation (Resolved) Foot ulcer, left (Resolved) Hospital-acquired pneumonia (Resolved) Necrotizing fasciitis (Resolved) Non-ST elevated myocardial infarction (Resolved) Osteomyelitis of ankle or foot (Resolved) left foot neuropathic deep wound infection (Resolved) Deep ulceration down to fascia layer w/ necrosis left foot (MRSA +, gram neg steph) Cellulitis left foot resolved Osteomyelitis left foot not detected on MRI; he has h/o chronic osteo Diabetic neuropathy Diabetes Multiple Comorbidities Reviewed diagnostic data. He is afebrile and his vital signs are stable. His blood cultures are negative so far. MRI was negative. He will be discharged home on a 7-day course of Augmentin and Bactrim. His culture results demonstrated MRSA, proteus penneri, and gram-positive steph This left foot ulcer site was selectively debrided to excise fibrous, biofilm, and slough. This was performed after verbal consent was obtained. Local anesthetic was not required due to his neuropathy status. Pressure was applied to maintain hemostasis. He tolerated this well. A 15 blade scalpel and a pickup were utilized. The dressing was changed today with Betadine and gauze. His ulcer site has stabilized. Diabetes and medical management per medicine team is appreciated. To follow up at the wound healing center 1 week after discharge. Please do not hesitate to call for any questions. Sarah Soto DPM, [facility] [phone]
[2020-03-25 11:16] LABS: Bedside Glucose 168 mg/dL (70-110)
--- NOTE | 2020-03-26 12:20 | CASEMGMT ---
ROCKY CM DC PHONE CALL DC DATE: 03.25.2020 DC DISPOSITION: Home DC DIAGNOSIS: Sepsis/foot ulceration, DM LACE/STRATA: 10/03 F/U APPTS MADE PRIOR TO DC: no Attempted call to patient. No answer, message machine did have name identifier, message left with call back information if pt had questions. Roxi CALLOWAYN RN ACM
--- NOTE | 2020-03-28 14:29 | CASEMGMT ---
ROCKY MCGARRY received call from patient requesting [facility] to assist with wound dressing. ROCKY MCGARRY provided patient with [facility] agencies and patient is agreeable to [facility]. Patient states he will call Dr. Soto's office to schedule appointment. ROCKY MCGARRY called and sent referral to [facility].
== END 2020-03-25 12:25 | disposition home or self-care (01) | DRG 854 ==
LOC: ED 18:58 → MS3 20:48
PROVIDERS: Internal Medicine; Nurse Practitioner Family; Podiatrist; Admitting Provider Hospitalist; Emergency Provider Emergency Medicine; PCP Internal Medicine; Visit Provider Family Medicine
DX: A41.9 Sepsis, unspecified organism (principal); Z68.43 Body mass index [BMI] 50.0-59.9, adult; L97.528 Non-pressure chronic ulcer of other part of left foot with other specified severity; L03.116 Cellulitis of left lower limb; B95.62 Methicillin resistant Staphylococcus aureus infection as the cause of diseases classified elsewhere; B96.4 Proteus (mirabilis) (morganii) as the cause of diseases classified elsewhere; E11.621 Type 2 diabetes mellitus with foot ulcer; E11.21 Type 2 diabetes mellitus with diabetic nephropathy; E11.40 Type 2 diabetes mellitus with diabetic neuropathy, unspecified; I12.9 Hypertensive chronic kidney disease with stage 1 through stage 4 chronic kidney disease, or unspecified chronic kidney disease; E11.22 Type 2 diabetes mellitus with diabetic chronic kidney disease; N18.3 Chronic kidney disease, stage 3 (moderate); E03.9 Hypothyroidism, unspecified; F32.9 Major depressive disorder, single episode, unspecified; F41.9 Anxiety disorder, unspecified; K21.9 Gastro-esophageal reflux disease without esophagitis; G25.81 Restless legs syndrome; G47.33 Obstructive sleep apnea (adult) (pediatric); E66.01 Morbid (severe) obesity due to excess calories; F10.21 Alcohol dependence, in remission; J44.9 Chronic obstructive pulmonary disease, unspecified; I25.10 Atherosclerotic heart disease of native coronary artery without angina pectoris; E11.65 Type 2 diabetes mellitus with hyperglycemia; E78.5 Hyperlipidemia, unspecified; I25.2 Old myocardial infarction; I87.2 Venous insufficiency (chronic) (peripheral); E11.610 Type 2 diabetes mellitus with diabetic neuropathic arthropathy; Y90.9 Presence of alcohol in blood, level not specified; Z89.432 Acquired absence of left foot; Z91.19 Patient's noncompliance with other medical treatment and regimen; Z79.4 Long term (current) use of insulin; Z79.890 Hormone replacement therapy; Z79.899 Other long term (current) drug therapy; Z87.891 Personal history of nicotine dependence
CPT/HCPCS: 36415; 73630; 73718; 80048; 80202; 82962; 83036; 83605; 85025; 85027; 85652; 86140; 87040; 87070; 87075; 87077; 87186; 87205; 87640; 93923; 96365; 97162; 97166; 99283; J7040; J7050; A4216; J0295

== ENCOUNTER → 2020-04-17 13:01 | Outpatient (CLI) | payer MEDICARE, OTHER, SELFPAY ==
[2020-03-21 22:27] VITALS: BMI 55.6
--- NOTE | 2020-04-17 13:34 | RAD_ITS ---
STUDY: X-RAY CHEST REASON FOR EXAM: Male, 64 years old. COUGH/SOB, FEVER, LEFT FOOT WOUND TECHNIQUE: AP and lateral views of the chest. COMPARISON: Comparison is made with prior examination dated August 14, 2016. FINDINGS: Hyperinflation. There is no demonstrated pleural abnormality. There is moderate cardiac enlargement. Normal mediastinum and saida. Normal visualized pulmonary arteries. Normal visualized aortic arch and descending thoracic aorta. There are diffuse degenerative changes of the visualized thoracic spine. Normal visualized ribs, clavicles, and shoulders. There is no demonstrated abnormality of the visualized soft tissue structures of the upper abdomen. RAD/Chest PA and Lateral IMPRESSION: Moderate cardiomegaly. No acute abnormality is seen. Electronically Signed: Wally Arevalo, at 15:30 EDT , Service support ,
[2020-04-17 13:43] LABS: Hematocrit 41.4 % (40-54); Hemoglobin 12.4 g/dL (13.0-16.5); Mean Corpuscular Hgb 26.4 pg (27.0-32.0); Mean Corpuscular Volume 88.1 fL (80-94); Mean Platelet Vol. 9.3 fl (6.2-12.0); POSITIVE COUNT YES; POSITIVE MORPHOLOGY YES; Platelet Count 483 K/mm3 (150-450); RBC Distribution Width CV 16.3 % (11.6-14.6); RBC Distribution Width SD 52.1 fl (35.1-43.9)
[2020-04-17 13:44] LABS: Differential Indicated MANUAL DIFF
[2020-04-17 14:00] LABS: Anion Gap 9 (5-15); BUN 19 mg/dL (7-18); Calcium,Total 8.9 mg/dL (8.5-10.1); Chloride 99 mmol/L (98-107); Creatinine, Serum 1.73 mg/dL (0.70-1.30); EST Glomerular Filtration Rate 43 mL/min (>60); Est Glom Filt Rate - Afr Amer 52 mL/min (>60); Glucose 300 mg/dL (74-106); Potassium 4.6 mmol/L (3.5-5.1); Sodium Level 131 mmol/L (136-145)
[2020-04-17 14:57] LABS: Basophil 1 % (0-1); Eosinophil 5 % (0-5); Lymphocyte 15 % (19-41); Monocyte 7 % (0-10); Neutrophil-Segmented 71 % (47-70); Platelet Estimate SLT INC (ADEQ); Promyelocyte 1 (0-0); Red Cell Morphology NORM C+C NORMAL (NORM C&C); Total Cells Counted 100 (MANUAL DIFF)
[2020-04-17 14:58] LABS: Absolute Neutrophil Count 10.7 X10^3/uL (2.0-7.7)
[2020-04-19 12:15] LABS: Pathologist Review Reviewed
== END ==
PROVIDERS: PCP Internal Medicine; Referring Provider Nurse Practitioner; Visit Provider Nurse Practitioner
DX: R05 Cough (principal); R06.02 Shortness of breath; R50.9 Fever, unspecified
CPT/HCPCS: 36415; 71046; 80048; 85025; 87086; 87088

== ENCOUNTER 2020-04-17 14:39 | Outpatient (RCR) | payer MEDICARE, OTHER, SELFPAY | END 2020-04-30 23:59 | LOC: WC 14:39 | PROVIDERS: PCP Internal Medicine; Visit Provider Podiatrist | DX: Z09 Encounter for follow-up examination after completed treatment for conditions other than malignant neoplasm (principal) ==

== ENCOUNTER 2020-04-17 15:12 | Inpatient (IN) | payer MEDICARE, OTHER, SELFPAY ==
[2020-04-17 15:15] VITALS: BP 150/88; PULSE 104; RESP 16; TEMP 37.9; O2SAT 97; BMI 54.3
--- NOTE | 2020-04-17 15:48 | ED.VIS.GEN ---
History of Present Illness Chief Complaint: Cellulitis Detail of Chief Complaint: Left foot infection Informant: Patient Onset: Weeks Narrative: Patient presents from the wound center secondary to a temperature of 102.5. He went today for his routine exam when he was noted to be febrile and sent to the ER. He does have chronic left foot wounds that he states is been worsening with increased drainage. He also believes he may have a urinary tract infection. He had outpatient CBC and chemistry studies already obtained. Outpatient urine culture was sent. Patient has not taken anything for fever at this time. - Past Medical History (1) Diabetic foot infection Status: Chronic (2) CAD (coronary artery disease) Status: Chronic (3) COPD (chronic obstructive pulmonary disease) Status: Chronic (4) Diabetes mellitus Status: Chronic (5) Diabetic neuropathy Status: Chronic (6) HTN (hypertension) Status: Chronic Comment: Is on an paola inhibitor and tolerating well. BP 124/85 (7) Hyperlipidemia Status: Chronic Comment: No recent labs available at time of visit. He reports he is not willing to use a statin. Will obtain labs from [facility] provider. No medical records available at time of visit. (8) Hypothyroidism Status: Chronic Comment: Reports has been more tired and lacking interest in doing things at this time. He feels he is gaining more weight and this he does not want. Rechech thyroid levels. Past Medical History - Allergies and Home Meds Allergies/Adverse Reactions: Allergies No Known Allergies Allergy (Verified 04/17/20 15:13) Primary Care Physician: Maico Jones MD [Primary Care Provider] - Prior records reviewed: Yes Surgical History: - - left great toe amputation, Left mid foot amputation. Lives: Alone Smoking Status: Former smoker - Family History Paternal Family History: Family History (Last Reviewed 03/22/20 @ 05:[address] Quoc Victor MD) Mother Arthritis Diabetes Hypertension High cholesterol Osteoporosis Sister Breast cancer Cancer High cholesterol Brother Lung cancer High cholesterol Father Hypertension High cholesterol Family History: Reports: Heart Disease, Hypertension Maternal Family History: Family History (Last Reviewed 03/22/20 @ 05:[address] Quoc Victor MD) Mother Arthritis Diabetes Hypertension High cholesterol Osteoporosis Sister Breast cancer Cancer High cholesterol Brother Lung cancer High cholesterol Father Hypertension High cholesterol Family History: Reports: Diabetes Sibling Family History: Family History (Last Reviewed 03/22/20 @ 05:[address] Quoc Victor MD) Mother Arthritis Diabetes Hypertension High cholesterol Osteoporosis Sister Breast cancer Cancer High cholesterol Brother Lung cancer High cholesterol Father Hypertension High cholesterol Family History: Reports: Cancer - sister with breast, brother of lung cancer Review of Systems General: Reports: Chills, Fever Eyes: Denies: Visual changes - bilaterally ENT: Denies: Bilateral ear pain Cardiovascular: Denies: Chest pain Respiratory: Denies: Dyspnea, Cough Gastrointestinal: Denies: Abdominal pain, Nausea, Vomiting, Diarrhea Genitourinary: Reports: Dysuria Musculoskeletal: Reports: Extremity Pain Skin: Reports: Wounds Hematologic: Denies: Easy bruising, Easy bleeding Allergy: Denies: Uticaria Physical Exam Vital Signs/Narrative: Vital Signs Temp Pulse Resp BP Pulse Ox 04/17/20 15:15 100.2 F H 104 H 16 150/88 H 97 Inital Vital Signs reviewed: Yes General: Well nourished, Well developed Head: Normocephalic ENT: Moist mucous membranes Neck: Supple Cardiovascular: Regular rate, Regular rhythm Respiratory: No distress, CTA bilaterally Abdomen: Soft, Nontender Extremities: - - Left foot has been previously amputated the midfoot. He has a large ulceration measuring 6 cm in diameter on the plantar surface of the foot. The center 3 cm diameter region is a deeper or acute wound. He also has a 3 cm diameter blister over the medial left foot. Foul-smelling discharge is noted. Neurological: Alert, Oriented x3 Psychological: Normal affect Diagnostic/Tx/Re-eval Foot x-ray per my review does not show obvious new bony destruction. No gas in the soft tissues. - Medical Decision Making Patient was given Tylenol here for fever. CBC and chemistry studies were obtained as an outpatient just prior to arrival to the ER. White count is 15 with 71% neutrophils. Chemistry studies reveal a BUN of 19 and a creatinine 1.73. Blood sugars 300. Urine culture was sent but no urinalysis. UA has been ordered at this time. Lactic acid has been ordered along with blood cultures. I did do aerobic and anaerobic cultures of both wounds on the left foot. Patient is given a dose of Zosyn and vancomycin. He will be admitted for further care. ED Disposition - Plan for ED Patient: Disposition: Acute Care Hospital [facility] Diagnosis: Diabetic foot infection Referrals: Maico Jones MD [Primary Care Provider] -
--- NOTE | 2020-04-17 15:59 | ED.RN ---
ERROR TO ORIGINAL ASSESSEMENT. DOCUMENTED WOUND TO RT FOOT, WOUND IS TO LEFT FOOT.
[2020-04-17] MEDS: 0.9% Normal Saline 1,000 ML 150 ML IV (16:23)
[2020-04-17] MEDS: Acetaminophen 500 MG Tablet 1000 MG PO (16:34)
--- NOTE | 2020-04-17 16:43 | ED.RN ---
pt currently unable to provide u/a, md aware. no new orders given.
--- NOTE | 2020-04-17 16:46 | RAD_ITS ---
STUDY: X-RAY - LEFT FOOT CLINICAL: Male, 64 years old. Swelling TECHNIQUE: 3 view(s) of the foot. COMPARISON: 03/21/2020 FINDINGS: There are stable postsurgical changes from prior midfoot amputation. There are no definite radiographic findings of osteomyelitis. There is no acute fracture or dislocation. There is stable soft tissue swelling. There are no radiodense foreign bodies. RAD/Foot min 3 Views IMPRESSION: Stable postsurgical changes from prior midfoot amputation. No definite radiographic findings of osteomyelitis. Stable soft tissue swelling. No acute fracture or dislocation. Electronically Signed: Gordy Rosa, at 17:02 EDT Tel , Service support ,
--- NOTE | 2020-04-17 17:05 | NURSING ---
MED SURG DIABETIC FOOT INFECTION KRISHNA
[2020-04-17 17:13] LABS: Lactic Acid 1.4 mmol/L (0.4-1.9)
--- NOTE | 2020-04-17 17:21 | HP.PCM_ITS ---
<Priyank Zhang - Last Filed: 04/17/20 17:21> Problem List (1) Diabetic foot infection Status: Acute (2) Sepsis Status: Acute Comment: with MRSA bacteremia due to diabetic foot infection August 2016 (3) COPD (chronic obstructive pulmonary disease) Status: Chronic (4) Diabetic neuropathy Status: Chronic (5) CAD (coronary artery disease) Status: Chronic (6) Hypothyroidism Status: Chronic Qualifiers: Hypothyroidism type: acquired Qualified Code(s): E03.9 - Hypothyroidism, unspecified Comment: Reports has been more tired and lacking interest in doing things at this time. He feels he is gaining more weight and this he does not want. Rechech thyroid levels. (7) CECILE treated with BiPAP Status: Chronic Comment: PATIENT HAS OWN MACHINE. He feels he is doing well (8) HTN (hypertension) Status: Chronic Qualifiers: Hypertension type: essential hypertension Qualified Code(s): I10 - Essential (primary) hypertension Comment: Is on an paola inhibitor and tolerating well. BP 124/85 (9) Hyperlipidemia Status: Chronic Qualifiers: Hyperlipidemia type: unspecified Qualified Code(s): E78.5 - Hyperlipidemia, unspecified Comment: No recent labs available at time of visit. He reports he is not willing to use a statin. Will obtain labs from [facility] provider. No medical records available at time of visit. 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 He has felt acutely ill for the past 4 days noting that he has had fevers, chills, lethargy, and generalized malaise, stating that this has felt like torture. He has minimal pain around the wound as he has significant neuropathy. He is a pt of Dr. Quiles. He went to the wound center today to be evaluated but was sent to the ER as he had a fever of 102. He was recently here in the hospital with this same foot infection March 21 to the . At that time MRI did not show osteomyelitis. He was discharged on augmentin and bactrim. He has taken 1.5 days worth of old doxycycline that he had in his house with no improvement. He has been walking on this foot and notes his wound opens up every time. He has had some serosanguinous drainage, denies ashley pus. He also notes that his urine has been very dark like diluted coffee and very foul smelling, he denies dysuria tho. In the ER he appears septic with leukocytosis, fever, pulse >90, negative lactate. [] Past Medical History Past Medical History (Chronic Problems): Chronic Problems (Last Reviewed 03/22/20 @ 05:[address] Quoc Victor MD) Alcoholism in recovery (Chronic) COPD (chronic obstructive pulmonary disease) (Chronic) Diabetic neuropathy (Chronic) CAD (coronary artery disease) (Chronic) Diabetes mellitus (Chronic) Hypothyroidism (Chronic) Reports has been more tired and lacking interest in doing things at this time. He feels he is gaining more weight and this he does not want. Rechech thyroid levels. CECILE treated with BiPAP (Chronic) PATIENT HAS OWN MACHINE. He feels he is doing well HTN (hypertension) (Chronic) Is on an paola inhibitor and tolerating well. BP 124/85 Morbid obesity with BMI of 40.0-44.9, adult (Chronic) Uncontrolled diabetes mellitus (Chronic) BG readings in the low 200 range. Seems to need more back ground insulin. He would probably benefit from use of U-500. He reports he has significant supply of insulin at this time and does want to use it up. Enc to monitor BG carefully Non-compliance (Chronic) Hyperlipidemia (Chronic) No recent labs available at time of visit. He reports he is not willing to use a statin. Will obtain labs from [facility] provider. No medical records available at time of visit. Venous stasis dermatitis (Chronic) Diabetic neuropathy associated with type 2 diabetes mellitus (Chronic) Charcot's joint of foot due to diabetes (Chronic) Medical History: Medical History (Last Reviewed 03/22/20 @ 05:[address] Quoc Victor MD) Alcohol abuse F10.10 Anxiety and depression F41.9, F32.9 Arthritis M19.90 COPD (chronic obstructive pulmonary disease) J44.9 Diabetes type 2, uncontrolled E11.65 dx : 1999 last exacerbation : dka : never hypoglycemic episode : never er visit : never Drug abuse F19.10 GERD (gastroesophageal reflux disease) K21.9 GI problem R19.8 H/O transfusion of whole blood Z92.89 Hearing problem H91.90 High cholesterol E78.00 High triglycerides E78.1 CECILE (obstructive sleep apnea) G47.33 Pneumonia J18.9 Recurrent infections B99.9 Thyroid disorder E07.9 Vision problems H54.7 Vitamin deficiency E56.9 prostate problems HTN (hypertension) I10 Allergies No Known Allergies Allergy (Verified 04/17/20 15:13) Home Medications: Ambulatory Orders Medication Instructions Recorded Ropinirole HCl [Requip] 0.25 mg PO BID 08/17/16 enalapril maleate 20 mg tablet 20 mg PO BID 02/14/18 fluticasone propionate 50 2 spray INTRANASAL DAILY PRN PRN 02/14/18 mcg/actuation nasal spray,suspension levothyroxine 75 mcg tablet 225 mcg PO DAILY@0600 #90 tab 03/02/18 Amlodipine [Norvasc] 2.5 mg PO DAILY 03/21/20 Duloxetine HCl 60 mg PO DAILY 03/21/20 Omeprazole 40 mg PO BID 03/21/20 buPROPion SR [Wellbutrin SR (150mg 150 mg PO BID 03/21/20 tablets)] Surgical History: Surgical History (Last Reviewed 03/22/20 @ 05:[address] 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 Psychiatric History: Anxiety, Depression Lives: Alone Smoking Status: Former smoker Tobacco Use: Non-smoker Alcohol: None Drugs: None - *Family History Paternal Family History: Family History (Last Reviewed 04/17/20 @ 17:31 by JB Simon) Mother Arthritis Diabetes Hypertension High cholesterol Osteoporosis Sister Breast cancer Cancer High cholesterol Brother Lung cancer High cholesterol Father Hypertension High cholesterol History Items: Heart Disease, Hypertension Maternal Family History: Family History (Last Reviewed 04/17/20 @ 17:31 by JB Simon) Mother Arthritis Diabetes Hypertension High cholesterol Osteoporosis Sister Breast cancer Cancer High cholesterol Brother Lung cancer High cholesterol Father Hypertension High cholesterol History Items: Diabetes Sibling Family History: Family History (Last Reviewed 04/17/20 @ 17:31 by JB Simon) Mother Arthritis Diabetes Hypertension High cholesterol Osteoporosis Sister Breast cancer Cancer High cholesterol Brother Lung cancer High cholesterol Father Hypertension High cholesterol History Items: Cancer - sister with breast, brother of lung cancer Review of Systems Constitutional: Reports: Chills, Fever, Malaise, Fatigue. Denies: Weight Change HEENT: Denies: Head Aches, Sinus Congestion, Sinus Drainage Cardiovascular: Denies: Chest Pain, Palpitations Respiratory: Denies: Cough, Shortness of Breath, Shortness of breath at rest, Sputum production Gastrointestinal: Denies: Abdominal Pain, Diarrhea, Nausea, Vomiting Genitourinary: Reports: - - foul smelling, dark urine.. Denies: Dysuria Musculoskeletal: Denies: Joint Pain, Joint Tenderness Skin: Reports: Wounds - left foot wound re opened, numbness, serosanguinous drainage. Denies: Rash Neurological: Denies: Numbness, Tingling, Focal weakness Psychiatric: Denies: Anxiety, Depression, Homicidal Ideations, Suicidal Ideations Hematologic/ Lymphatic: Denies: Easy Bruising, Easy Bleeding VTE Information - Inpt Only VTE Present on Admission: No VTE Mechan Device Prophylaxis: None VTE Pharm Prophylaxis ordered?: Yes Patient Problems: Active and Suspected Problems (Last Reviewed 03/22/20 @ 05:[address] Quoc Victor MD) Diabetic foot infection (Acute) - Physical Exam Vitals/I&O's: Vital Signs Temp Pulse Resp BP Pulse Ox 100.2 F H 104 H 16 150/88 H 97 04/17/20 15:15 04/17/20 15:15 04/17/20 15:15 04/17/20 15:15 04/17/20 15:15 Weight: 390 lb Body Mass Index (BMI) 54.3 Finger Stick Blood Glucose 198 General: Alert, Oriented x3, Cooperative HEENT: Atraumatic, PERRLA, EOMI, Normocephalic Neck: Supple, No JVD, Negative Carotid Bruits Lungs: Clear to auscultation, Normal air movement Cardiovascular: Regular rate, No murmurs Abdomen: Bowel Sounds Present, Soft, Non Tender, Obese Extremities: No edema, Capillary Refill Less than 3 Seconds Skin: Ulcer/ Wound, - - old wound bottom of foot - nonhealing wounds. no drainage at this time, none expressed. some sloughing present. top of foot reportedly new wound. sloughing present. Musculoskeletal: No Tenderness to Palpation of Joints or Extremities, - - left midfoot amputation. Neurological: Cranial nerves II-XII grossly intact Psych/Mental Status: Normal Affect, Appropriate, Alert and oriented to time, place, person, mood and affect Laboratory Results 04/17/20 16:17: Lactic Acid 1.4 Current Medications Sodium Chloride () 1,000 mls @ 150 mls/hr IV .Q6H40M FAITH Last Admin: 04/17/20 16:23 Dose: 150 mls/hr Documented by: Vancomycin HCl 2,000 mg/ (Sodium Chloride) 540 mls @ 250 mls/hr IV X1 ONE Stop: 04/17/20 18:09 Assessment/Plan All Active Problems (Last Reviewed 03/22/20 @ 05:[address] Quoc Victor MD) Left foot infection (Acute) Left foot infection (Acute) Diabetic foot infection (Acute) Sepsis (Acute) Diabetic foot ulcer associated with type 2 diabetes mellitus (Acute) Acute renal failure (Resolved) COPD exacerbation (Resolved) Foot ulcer, left (Resolved) Hospital-acquired pneumonia (Resolved) Necrotizing fasciitis (Resolved) Non-ST elevated myocardial infarction (Resolved) Osteomyelitis of ankle or foot (Resolved) left foot neuropathic deep wound infection (Resolved) 1. Acute sepsis 2/2 Recurrent non healing left diabetic foot wound infection - complicated by prior midfoot amputation, charcot foot. Pt of Dr. Quiles. Pt reports his wound opens up every time he walks on it. + fever, leukocytosis, pulse >90, negative lactate. MRI in march negative for osteo. In march treated with Vanc and zosyn with transition to Augmentin and Bactrim. Will continue Vanc / Zosyn and await final culture. Provide IV fluids. Consult ID and podiatry. Wound care consult. Blood cultures pending. Wound culture sent in ER. Has also had very dark foul smelling urine. Check UA and culture. Xray without definitive osteo. -previous cxs with mrsa, strep, pseudomonas, anaerobic cocci, proteus 2. 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 No other home agents listed, however at last discharge it appears he was on TID aspart 60 units, and detemir 200 sc BID - nursing to verify current dosing. Last A1C 8.06 Mar 2020 3. CKDIII with Hyponatremia - possibly 2/2 sepsis and poorly controlled glucose, duloxetine. IV NaCl and recheck in AM. Ceiling Insulation Blower is Greg. 4. HTN - enalapril, norvasc. mildly elevated 5. CECILE - continue home cpap. 6. GERD - ppi 7. Depression / Anx - duloxetine, Wellbutrin 8. hypothyroidism - sythroid 9. RLS - requip DVT ppx: lovenox This patient was seen by Priyank Zhang PA-C under the supervision of Dr. Garza. <Nafisa Garza - Last Filed: 04/17/20 18:55> History of Present Illness Date of Admission: 04/17/20 Agree with the above and below is based on my independent history and physical The patient is a 64 year old M with a complicated PMH as noted above who presented today after going to the wound care center where he is seen for his foot and was turned away 2/2 to him having a fever of 102. He has had chronic issues with the wound on the plantar surface of his foot and continues to bear weight on this LE. He states that the wound on the top of his foot just started about 1-2 weeks ago and has been getting worse. He follows with Dr. Quiles for his wound. His planter surface wound is deep and it is difficult to tell if there is exposed bone. The wound on the dorsum of his foot is superficial. Neither wound has purulent drainage. Pt has neuropathy in B LE and has had a transmet amputation of the L LE. A CBC was done earlier today and his white count was 15,000 with a slight L shift. He has no elevated lactic acid. His VSS are stable. He has some mild ZAIN with a sCr of 1.7 (baseline 1.35-1.5). His last A1c was 8.6 (03/20/2020) and he is mildly hyponatremic. Cultures of the wound, blood and urine have been done. The ED added a UA and gave him a dose of Vanc and Zosyn. Past Medical History Medical History: Medical History (Last Reviewed 04/17/20 @ 18:[address] Nafisa Garza, DO) Alcohol abuse F10.10 Anxiety and depression F41.9, F32.9 Arthritis M19.90 COPD (chronic obstructive pulmonary disease) J44.9 Diabetes type 2, uncontrolled E11.65 dx : 1999 last exacerbation : dka : never hypoglycemic episode : never er visit : never Drug abuse F19.10 GERD (gastroesophageal reflux disease) K21.9 GI problem R19.8 H/O transfusion of whole blood Z92.89 Hearing problem H91.90 High cholesterol E78.00 High triglycerides E78.1 CECILE (obstructive sleep apnea) G47.33 Pneumonia J18.9 Recurrent infections B99.9 Thyroid disorder E07.9 Vision problems H54.7 Vitamin deficiency E56.9 prostate problems HTN (hypertension) I10 Allergies No Known Allergies Allergy (Verified 04/17/20 15:13) Surgical History: Surgical History (Last Reviewed 04/17/20 @ 18:[address] Nafisa Garza, DO) Partial nontraumatic amputation of left foot Z89.432 - *Family History Paternal Family History: Family History (Last Reviewed 04/17/20 @ 17:31 by JB Simon) Mother Arthritis Diabetes Hypertension High cholesterol Osteoporosis Sister Breast cancer Cancer High cholesterol Brother Lung cancer High cholesterol Father Hypertension High cholesterol Maternal Family History: Family History (Last Reviewed 04/17/20 @ 17:31 by JB Siomn) Mother Arthritis Diabetes Hypertension High cholesterol Osteoporosis Sister Breast cancer Cancer High cholesterol Brother Lung cancer High cholesterol Father Hypertension High cholesterol Sibling Family History: Family History (Last Reviewed 04/17/20 @ 17:31 by JB Simon) Mother Arthritis Diabetes Hypertension High cholesterol Osteoporosis Sister Breast cancer Cancer High cholesterol Brother Lung cancer High cholesterol Father Hypertension High cholesterol Review of Systems Constitutional: Reports: Chills, Fever, Fatigue. Denies: Anorexia, Night Sweats, Malaise, Weakness, Weight Change Eyes: Denies: Blurred vision, Cataracts, Conjunctivae Inflammation, Double vision, Drainage, Eyelid Inflammation, Pain, Redness, Vision Change HEENT: Denies: Difficulty Hearing, Dysphasia, Head Aches, Nasal Congestion, Sinus Congestion, Sore Throat Cardiovascular: Denies: Chest Pain, Chest Pressure, Chest Tightness, Edema, Light Headedness, Orthopnea, Palpitations, Paroxysmal Noc. Dyspnea, Syncope Respiratory: Denies: Cough, Shortness of Breath, Shortness of breath at rest, Shortness of breath upon exertion, Sputum production, Wheezing Gastrointestinal: Denies: Abdominal Pain, Constipation, Diarrhea, Dyspepsia, Hematemesis, Hematochezia, Nausea, Melena, Vomiting Genitourinary: Denies: Dysuria, Frequency, Hematuria, Hesitancy, Incontinence, Retention, Urgency Musculoskeletal: Denies: Foot Pain, Joint stiffness, Joint swelling, Joint Tenderness Skin: Reports: Wounds. Denies: Dryness, Jaundice, Lesions, Pruritis, Skin Changes Neurological: Denies: Balance problems, Double vision, Confusion, Focal weakness, Incoordination, Numbness, Tingling, Tremor, Seizures Endocrine: Denies: Change in Body Habitus, Polydipsia, Polyuria Hematologic/ Lymphatic: Denies: Adenopathy, Easy Bruising, Easy Bleeding, Hx of blood clot - Physical Exam Vitals/I&O's: Vital Signs Temp Pulse Resp BP Pulse Ox 100.2 F H 104 H 16 150/88 H 97 04/17/20 15:15 04/17/20 15:15 04/17/20 15:15 04/17/20 15:15 04/17/20 15:15 Weight: 176.901 kg Body Mass Index (BMI) 54.3 Finger Stick Blood Glucose 198 General: Alert, Oriented x3, Cooperative, No apparent distress, Well developed, Well nourished, - - Obese WM sitting up in bed, quite upset as he couldnt get help and urinated on himself, swearing HEENT: Atraumatic, PERRLA, EOMI, Normocephalic, EAC Clear Oral: Moist Mucosa, No Gingival or Mucosal Lesions/ Ulcerations, - - Fair dentition, Mallampati 4, no thrush Neck: Supple, No JVD, Negative Carotid Bruits, No Nodes, No Nuchal Rigidity, Trachea Midline, Thyroid Normal Size and Texture Lungs: Clear to auscultation, Normal air movement, No rhonchi, No wheeze, No rales Cardiovascular: Regular rate, Regular Rhythm, Normal S1, Normal S2, No murmurs, No Ectopic Activity, No rub noted, No Gallop Abdomen: Bowel Sounds Present, Soft, Non Tender, Non-Distended, Obese, No hernias noted Extremities: No clubbing, No cyanosis, No edema, Capillary Refill Less than 3 Seconds, No Calf Tenderness, Peripheral Pulses Normal - R Skin: No rashes, Ulcer/ Wound, - - old wound bottom of foot - nonhealing wounds. no drainage at this time, none expressed. some sloughing present. top of foot reportedly new wound. sloughing present, R Foot without abnormalities Musculoskeletal: No Tenderness to Palpation of Joints or Extremities, No Muscle Wasting, Arthritic Changes, - - left midfoot amputation, Charcot foot B Neurological: Deep Tendon Reflexes 2+/4 and Symmetrical, Neuro grossly intact, Motor Exam 5/5 strength throughout, Muscle tone normal, Sensory exam intact to light touch and pain, Coordination normal Psych/Mental Status: Normal Affect, Appropriate, Alert and oriented to time, place, person, mood and affect Laboratory Results 04/17/20 16:17: Lactic Acid 1.4 Current Medications Sodium Chloride () 1,000 mls @ 150 mls/hr IV .Q6H40M FAITH Last Admin: 04/17/20 16:23 Dose: 150 mls/hr Documented by: Assessment/Plan Agree with the above and below is based on my independent history and physical Sepsis 2/2 R LE Foot Wound +/- bacteremia/?UTI -Urine, blood and wound cx done -pt was taking some left over doxy -check CRP and ESR -? MRI--> will leave to podietry as they know him well -X-ray without osteo -last cx from March were sensitive to above abx ZAIN on CKD stage 3 -mild ZAIN -baseline sCr 1.3-1.5 -sCr is 1.73 today -gentle hydration overnight and repeat in am Mild Hyponatremia -repeat in am with hydration -not on diuretics at home is on SNRI Thrombocytosis -acute phase reactant vs dehydration and hemoconcentration -repeat in am after hydration Mild Anemia -no s/o blood loss -monitor counts CECILE -wears BIPAP at home -unsure of settings -will place on 16/06 given body habitus MO -recommend wgt loss Inpatient E&M: 20418 Init Hosp L3
[2020-04-17 18:50] VITALS: BMI 54.6
--- NOTE | 2020-04-17 19:07 | NURSING ---
vancomycin was started in Er
[2020-04-17 19:09] VITALS: BP 125/66; PULSE 95; RESP 18; TEMP 38.1; O2SAT 95
--- NOTE | 2020-04-17 19:30 | PCM.RX.CS ---
Consult Pharmacy has been consulted to manage selected antiobiotic: Vancomycin Type of Consult: New start Suspected Infection: Skin/Soft tissue Prior Doses of Antibiotics Received/Current Regimen: 2000mg IV x1 administered in ED 04/17/20 @1904 Goal Trough: 15-20 mcg/mL Pharmacy Plan for Drug Dosing: NEW START IV VANCOMYCIN Consulting Physician: JB Simon / Dr. Garza Indication: Diabetic Foot Infection Goal Trough: 15-20 SrCr: 1.73 (04/13 outpt labs) CrCl: 73 mL/min (using Adj BW = 116kg) Comments: Patient with previous admission for MRSA SSTI 03/25/20. Was on vancomycin at this time. The patient initially was on 2000mg IV Q12hr, which resulted in an elevated trough. Dose was then decreased to 1250mg IV Q12hr which resulted in trough of 14.1 (10hr trough). at that time, the patient was placed on 1500mg IV Q12hr, but never had a trough drawn prior to discharge. Will place patient back on dose the patient most recently had and draw a trough prior to 4th dose of new regimen. Note: Renal function similar to last visit. Vancomcyin Dose: -2000mg IV x1 administered in ED 04/17/20 @1904 -Start 1500mg IV Q12hr 04/18/20 @0700 Pending Level: 04/19/20 @0630 (Prior to 4th total dose per protocol) Pharmacy Service will continue to monitor and adjust dosing as required.
[2020-04-17 19:54] VITALS: BMI 54.6
[2020-04-17] MEDS: oxyCODONE 5 MG Tablet PO (20:11)
[2020-04-17 21:00] VITALS: O2SAT 93
--- NOTE | 2020-04-17 21:18 | PCM.CONS.GEN ---
Problem List (1) Ulcer of left foot with necrosis of muscle Status: Acute (2) Left foot infection Status: Acute (3) Diabetic neuropathy Status: Chronic (4) Non-compliance Status: Chronic (5) Diabetic neuropathy associated with type 2 diabetes mellitus Status: Chronic Reason for Consult Date of Consultation: 04/17/20 Reason for Consultation: Left foot infection History of Present Illness: The patient is a 64 year old M with diabetic neuropathy and other multiple comorbidities was seen bedside this evening for chronic left foot ulcer with development of infection. The ulcer has been present for at least a month and a half. He was admitted to [facility] about one month ago for left foot infection which stabilized with wound care and antibiotics. He failed to follow-up. He presents this evening with worsening status and progressive illness. He relates he would like to consider a below-knee amputation because the foot in its current state is not functional. He also relates he keeps falling and slipping with his limb in this condition and every time he tries to walk on it the ulcer reopens or gets infected. He has been seen with home health for dressing changes. He is also frustrated because he is having difficulty losing weight because he cannot exercise or have any type of bariatric procedure with his foot in this state. He denies knowing of any odor of his foot. He does report new drainage on the other side of his foot now as well and is unaware of any direct trauma. Past Medical History Past Medical History (Chronic Problems): Chronic Problems (Last Reviewed 04/17/20 @ 18:[address] Nafisa Garza, DO) Alcoholism in recovery (Chronic) COPD (chronic obstructive pulmonary disease) (Chronic) Diabetic neuropathy (Chronic) CAD (coronary artery disease) (Chronic) Diabetes mellitus (Chronic) Hypothyroidism (Chronic) Reports has been more tired and lacking interest in doing things at this time. He feels he is gaining more weight and this he does not want. Rechech thyroid levels. CECILE treated with BiPAP (Chronic) PATIENT HAS OWN MACHINE. He feels he is doing well HTN (hypertension) (Chronic) Is on an imckey inhibitor and tolerating well. BP 124/85 Morbid obesity with BMI of 40.0-44.9, adult (Chronic) Uncontrolled diabetes mellitus (Chronic) BG readings in the low 200 range. Seems to need more back ground insulin. He would probably benefit from use of U-500. He reports he has significant supply of insulin at this time and does want to use it up. Enc to monitor BG carefully Non-compliance (Chronic) Hyperlipidemia (Chronic) No recent labs available at time of visit. He reports he is not willing to use a statin. Will obtain labs from [facility] provider. No medical records available at time of visit. Venous stasis dermatitis (Chronic) Diabetic neuropathy associated with type 2 diabetes mellitus (Chronic) Charcot's joint of foot due to diabetes (Chronic) Medical History: Medical History (Last Reviewed 04/17/20 @ 18:[address] Nafisa Garza, DO) Alcohol abuse F10.10 Anxiety and depression F41.9, F32.9 Arthritis M19.90 COPD (chronic obstructive pulmonary disease) J44.9 Diabetes type 2, uncontrolled E11.65 dx : 1999 last exacerbation : dka : never hypoglycemic episode : never er visit : never Drug abuse F19.10 GERD (gastroesophageal reflux disease) K21.9 GI problem R19.8 H/O transfusion of whole blood Z92.89 Hearing problem H91.90 High cholesterol E78.00 High triglycerides E78.1 CECILE (obstructive sleep apnea) G47.33 Pneumonia J18.9 Recurrent infections B99.9 Thyroid disorder E07.9 Vision problems H54.7 Vitamin deficiency E56.9 prostate problems HTN (hypertension) I10 Allergies No Known Allergies Allergy (Verified 04/17/20 15:13) Home Medications: Ambulatory Orders Medication Instructions Recorded Ropinirole HCl [Requip] 0.25 mg PO BID 08/17/16 enalapril maleate 20 mg tablet 20 mg PO BID 02/14/18 fluticasone propionate 50 2 spray INTRANASAL DAILY PRN PRN 02/14/18 mcg/actuation nasal spray,suspension levothyroxine 75 mcg tablet 225 mcg PO DAILY@0600 #90 tab 03/02/18 Amlodipine [Norvasc] 2.5 mg PO DAILY 03/21/20 Duloxetine HCl 60 mg PO DAILY 03/21/20 Omeprazole 40 mg PO BID 03/21/20 buPROPion SR [Wellbutrin SR (150mg 150 mg PO BID 03/21/20 tablets)] Insulin Detemir [Levemir FlexPen] 200 units SQ BID 04/17/20 Surgical History: Surgical History (Last Reviewed 04/17/20 @ 18:[address] 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 Psychiatric History: Anxiety, Depression Lives: Alone Smoking Status: Former smoker Tobacco Use: Non-smoker Alcohol: None Drugs: None - *Family History Paternal Family History: Family History (Last Reviewed 04/17/20 @ 17:31 by JB Simon) Mother Arthritis Diabetes Hypertension High cholesterol Osteoporosis Sister Breast cancer Cancer High cholesterol Brother Lung cancer High cholesterol Father Hypertension High cholesterol History Items: Heart Disease, Hypertension Maternal Family History: Family History (Last Reviewed 04/17/20 @ 17:31 by JB Simon) Mother Arthritis Diabetes Hypertension High cholesterol Osteoporosis Sister Breast cancer Cancer High cholesterol Brother Lung cancer High cholesterol Father Hypertension High cholesterol History Items: Diabetes Sibling Family History: Family History (Last Reviewed 04/17/20 @ 17:31 by JB Simon) Mother Arthritis Diabetes Hypertension High cholesterol Osteoporosis Sister Breast cancer Cancer High cholesterol Brother Lung cancer High cholesterol Father Hypertension High cholesterol History Items: Cancer - sister with breast, brother of lung cancer Review of Systems Constitutional: Reports: Fever, Malaise, Weakness, Fatigue Cardiovascular: Reports: Edema. Denies: Chest Pain, Claudication Respiratory: Denies: Shortness of Breath Gastrointestinal: Denies: Vomiting Musculoskeletal: Denies: Foot Pain, Leg Pain Skin: Reports: Skin Changes, Wounds Neurological: Reports: Balance problems, Incoordination, Numbness Patient Problems: Active and Suspected Problems (Last Reviewed 04/17/20 @ 18:[address] Nafisa Garza DO) Ulcer of left foot with necrosis of muscle (Acute) Diabetic foot infection (Acute) - Physical Exam Vitals/I&O's: Vital Signs Temp Pulse Resp BP Pulse Ox 100.5 F H 95 18 125/66 H 95 04/17/20 19:09 04/17/20 19:09 04/17/20 19:09 04/17/20 19:09 04/17/20 19:09 Oxygen Delivery Method Room Air Weight: 176.901 kg Body Mass Index (BMI) 54.6 Finger Stick Blood Glucose 198 General: Alert, Oriented x3, Cooperative HEENT: Atraumatic Extremities: No cyanosis, Capillary Refill Less than 3 Seconds - Amputation stump left foot, No Calf Tenderness - Negative Latif and Addy, Edema - Bilateral lower extremity, Peripheral Pulses Normal - Palpable DP pulse, - - Modified chopart amputation left. Compartments of the left lower extremity are soft to palpate and there is no crepitus or bogginess on palpation to the left foot Skin: Ulcer/ Wound - There is a large skin discontinuity to the plantar central lateral foot now with positive probe to deep muscular tissue. The ulcer bed is fibrous and devitalized with necrotic muscle. There is also a new skin discontinuity to the medial rear foot just distal to the medial malleolus and this has some seropurulent drainage on expression and also probes deep. There is also a large callusing bulla to the entire plantar surface of the foot. The foot is not demonstrating to lower or visible streaking up the leg. This foot looks infected. His skin is atrophic and has limited hair growth to the left lower extremity. Upon initial evaluation, it is noted the wound is not covered and he is moving around in the bed and in the room with the wound exposed to the environment including the hospital floor Musculoskeletal: No Tenderness to Palpation of Joints or Extremities, Muscle Wasting Neurological: - - Lack of epicritic sensation consistent with neuropathy status Psych/Mental Status: Normal Affect, Appropriate, Depressed Laboratory Results 04/17/20 16:17: Lactic Acid 1.4 Current Medications Acetaminophen (Tylenol) 650 mg PO Q6H PRN PRN PRN Reason: Pain 1-10 or Fever Amlodipine Besylate (Norvasc) 2.5 mg PO DAILY COUNTS INCLUDE 234 BEDS AT THE [facility] Bupropion HCl (Wellbutrin Sr (150mg Tablets)) 150 mg PO BID COUNTS INCLUDE 234 BEDS AT THE [facility] Dextrose (D50w Syringe) 0 gm IV X1 PRN; Protocol PRN Reason: Hypoglycemia Duloxetine HCl (Cymbalta) 60 mg PO DAILY [facility] Enoxaparin Sodium (Lovenox) 40 mg SC DAILY [facility] Glucagon () 1 mg IM .X1 PRN PRN Reason: Hypoglycemia Piperacillin Sod/Tazobactam (Sod 3.375 gm/ Sodium Chloride) 50 mls @ 12.5 mls/hr IV Q8 [facility] Vancomycin IV Pharmacy to Dose (1 ea/ Sodium Chloride) 500 mls @ 250 mls/hr IV PRN PRN; Protocol PRN Reason: Rx to Dose Sodium Chloride () 1,000 mls @ 125 mls/hr IV .Q8H [facility] Sodium Chloride () 250 mls @ 15 mls/hr IV .[id number] PRN PRN Reason: Saline Flush Sodium Chloride () 250 mls @ 15 mls/hr IV .[id number] PRN PRN Reason: Additional IVPB Infusion Vancomycin HCl 1,500 mg/ (Sodium Chloride) 530 mls @ 250 mls/hr IV Q12H COUNTS INCLUDE 234 BEDS AT THE [facility] Insulin Human Lispro (Humalog Kwikpen (Bkc)) 0 unit SC ACHS FAITH; Protocol Levothyroxine Sodium (Synthroid) 225 mcg PO DAILY@0600 [facility] Lisinopril (Zestril) 20 mg PO BID COUNTS INCLUDE 234 BEDS AT THE [facility] Nutritional Formula (Lactose Free) (Glucerna Shake) 120 ml PO TIDCM [facility] Ondansetron HCl (Zofran Odt) 4 mg PO Q4H PRN PRN PRN Reason: NAUSEA Oxycodone HCl (Oxyir) 5 mg PO Q6H PRN PRN PRN Reason: Pain Score 6-10/10 Last Admin: 04/17/20 20:11 Dose: 5 mg Documented by: Pantoprazole Sodium (Protonix) 40 mg PO BID FAITH Pramipexole Dihydrochloride (Mirapex) 0.125 mg PO BID COUNTS INCLUDE 234 BEDS AT THE [facility] Sodium Chloride () 2 - 6 ml IV UD PRN PRN Reason: Pediatric Saline Flush Assessment/Plan All Active Problems (Last Reviewed 04/17/20 @ 18:[address] Nafisa Garza, DO) Ulcer of left foot with necrosis of muscle (Acute) Left foot infection (Acute) Left foot infection (Acute) Diabetic foot infection (Acute) Sepsis (Acute) Diabetic foot ulcer associated with type 2 diabetes mellitus (Acute) Acute renal failure (Resolved) COPD exacerbation (Resolved) Foot ulcer, left (Resolved) Hospital-acquired pneumonia (Resolved) Necrotizing fasciitis (Resolved) Non-ST elevated myocardial infarction (Resolved) Osteomyelitis of ankle or foot (Resolved) left foot neuropathic deep wound infection (Resolved) Ulcer Paredes grade 3 left foot with active infection Sepsis Diabetic neuropathy Obesity Multiple Comorbidities Balance and fall risk I reviewed and discussed his case. He is demonstrating that he has a fever at this time and he has sepsis. His white blood cell count is elevated at 15. Lactic acid 1.4. ESR and CRP pending. His foot x-ray was reviewed without any soft tissue emphysema, foreign body, acute fracture dislocation or osseous destruction. Is noted he has a midfoot amputation. He appears coherent and is able to participate in his exam fully. The ulcer was debrided with a 15 blade scalpel and a subcutaneous excisional manner to remove any fibrous, macerated, devitalized subcutaneous tissue, biofilm, and slough. Pressure was applied to maintain hemostasis. This was irrigated with saline. Betadine soaked gauze was wet and packed into each ulcer site. This was covered with Kerlix, abdominal pad, and Mickey wrap. Prior to applying this dressing post debridement deep wound culture was obtained for aerobic, anaerobic, and MRSA PCR. Is noted he is on vancomycin and Zosyn. Infectious disease has also been consulted. It is noted he is high risk for limb and life loss due to this condition. We discussed his treatment options including aggressive surgical wound debridement with updated antibiotic medical management versus revisional Chopart amputation with additional incision and drainage and likely wound VAC placement versus below-knee amputation. He has failed multiple versions of conservative care and foot limb salvage techniques. I recommend that a below the knee amputation will be more functional at this time. He has had an updated noninvasive vascular study during his last hospital admission in March 2020. This demonstrated adequate perfusion with ABIs and also PVRs. The patient has seen orthopedic surgeon, Dr. Sousa, in the past and would like to proceed forward. An updated consultation was placed with this physician today via direct cortex message and nursing staff will also place a phone call. Pending on this evaluation and the timing of this probable below-knee amputation procedure procedure, I am also available to drain the foot to decompress the acute infection if needed beforehand. The patient understand this may be a staged procedure and he is still at risk for further limb loss and due to this condition. The indications, benefits, risk, complications, anticipated healing time and management were discussed for all of the aforementioned treatment options. No guarantees were made. I answered all of his questions. Medical management and DVT prophylaxis per primary team is greatly appreciated. I recommend he is n.p.o. tomorrow until his plan is confirmed. Thank you for the consultation. Please do not hesitate to call for any questions. Prior to his dressing application this patient stepped and stumbled out of his bed with foot bed elevated while alone in the room. He reports he made contact with his infected foot on the floor after reaching, leaned forward to stabilize, and then further stabilized with his knees and hands. He denies injury. He relates he has been falling more recently and he is not able to function properly with his left foot. The nursing staff checked his vitals immediately and he denies any pain or loss of consciousness. He did not sustain any other known injuries. Sarah Soto DPM, [facility] [phone]
[2020-04-17 21:31] VITALS: BP 146/76; PULSE 108; RESP 20; TEMP 38; O2SAT 96
[2020-04-17 22:16] LABS: Bedside Glucose 120 mg/dL (70-110)
--- NOTE | 2020-04-17 22:22 | NURSING ---
DR. JUSTICE LEFT ROOM TO GET SUPPLIES; PT TRIED TO GET UP WHILE HAD BED ELEVATED DOING A DRSG CHANGE TO HIS RT FOOT. PT STATED HE LET HIMSELF DOWN TO HIS KNEES AFTER REALIZING HE WAS LOSING HIS BALANCE. PT ALSO STATED HE IS FINE AND NOT HURT.
[2020-04-17] MEDS: 0.9% Normal Saline 1,000 ML 125 ML IV (23:00)
[2020-04-17] MEDS: Pramipexole Di-HCl 0.125 MG Tablet PO (23:01)
[2020-04-17] MEDS: buPROPion (SR) 150 MG Tablet.SA PO (23:01)
[2020-04-17] MEDS: Pantoprazole Sodium 40 MG Tablet PO (23:01)
[2020-04-17] MEDS: Lisinopril 20 MG Tablet PO (23:02)
[2020-04-17 23:47] VITALS: TEMP 37.8
[2020-04-17 23:59] LABS: Erythrocyte Sedimentation Rate > 130 mm/hr (0-20)
[2020-04-18] MEDS: Acetaminophen 325 MG Tablet 650 MG PO (00:03)
[2020-04-18 00:15] LABS: M R Staph aureus DNA By PCR POSITIVE (Negative); Probe Check PASS; Staph aureus DNA By PCR POSITIVE (Negative)
[2020-04-18 01:50] VITALS: TEMP 37.7
[2020-04-18 03:31] VITALS: BP 133/72; PULSE 105; RESP 16; TEMP 37.2; O2SAT 94
[2020-04-18 05:19] LABS: Absolute Lymphocyte Count 1.27 X10^3/uL (0.83-4.51); Absolute Neutrophil Count 12.4 X10^3/uL (2.0-7.7); Basophil% 0.6 % (0-1); Eosinophil# 0.32 X10^3/uL; Eosinophils% 2.1 % (0-5); Hemoglobin 11.5 g/dL (13.0-16.5); Lymphocyte # 1.27 X10^3/ul (4.0); Lymphocyte % 8.1 % (19-41); Mean Corp Hgb Conc 30.3 g/dL (32-36); Mean Corpuscular Hgb 26.7 pg (27.0-32.0); Mean Corpuscular Volume 88.4 fL (80-94); Mean Platelet Vol. 9.5 fl (6.2-12.0); Monocyte# 0.83 X10^3/uL; Monocyte% 5.3 % (0-10); NRBC Flagged by Analyzer 0 % (0-5); Neutrophil # 12.43 X10^3/uL (2.7-7.7); Neutrophil % 79.7 % (47-70); Platelet Count 441 K/mm3 (150-450); RBC Distribution Width CV 16.1 % (11.6-14.6); RBC Distribution Width SD 52.7 fl (35.1-43.9); White Blood Count 15.6 K/mm3 (4.4-11.0)
[2020-04-18 05:37] LABS: Anion Gap 8 (5-15); BUN 20 mg/dL (7-18); BUN/Creat Ratio 10.5 RATIO (10-20); Calcium,Total 8.2 mg/dL (8.5-10.1); Chloride 101 mmol/L (98-107); EST Glomerular Filtration Rate 38 mL/min (>60); Est Glom Filt Rate - Afr Amer 46 mL/min (>60); Estimated Creatinine Clearance 41.62 ml/min; Glucose 166 mg/dL (74-106); Potassium 4.5 mmol/L (3.5-5.1); Sodium Level 133 mmol/L (136-145)
[2020-04-18 05:40] LABS: Erythrocyte Sedimentation Rate > 130 mm/hr (0-20)
[2020-04-18] MEDS: Levothyroxine 75 MCG Tablet 225 MCG PO (06:34)
[2020-04-18] MEDS: 0.9% Normal Saline 1,000 ML 125 ML IV ×2 (06:34→17:51)
[2020-04-18 06:56] LABS: Bedside Glucose 178 mg/dL (70-110)
[2020-04-18 09:00] VITALS: BP 129/57; PULSE 82; RESP 18; TEMP 37.5; O2SAT 98
--- NOTE | 2020-04-18 11:40 | CON.PCM_ITS ---
Reason for Consult Date of Consultation: 04/18/20 Reason for Consultation: Infected diabetic ulcers left foot with sepsis. REFERRING PHYSICIAN: Dr. Soto. CEMENTER OIL WELL: Dr. Lundy. History of Present Illness: The patient is a 64 year old M with history of uncontrolled DMt2 with morbid obesity, left Charcot foot with prior midfoot amputation and recurring infections with MRSA, Proteus, anaerobic cocci, Strep, Pseudomonas was admitted yesterday with worsening of his left foot wound infection with sepsis. His temperature was 102 at home and 100 in the ED. His WBC was 15. He was recently here in the hospital with this same foot infection March 21 to the . At that time MRI did not show osteomyelitis. He was discharged on Augmentin and Bactrim. Upon admission to the hospital he was started on Vancomycin and Zosyn. His MRSA Wound PCR by DNA was positive. I was asked to evaluate this patient for surgical options for treatment. Past Medical History Past Medical History (Chronic Problems): Chronic Problems (Last Reviewed 04/17/20 @ 18:[address] Nafisa Garza, DO) Alcoholism in recovery (Chronic) COPD (chronic obstructive pulmonary disease) (Chronic) Diabetic neuropathy (Chronic) CAD (coronary artery disease) (Chronic) Diabetes mellitus (Chronic) Hypothyroidism (Chronic) Reports has been more tired and lacking interest in doing things at this time. He feels he is gaining more weight and this he does not want. Rechech thyroid levels. CECILE treated with BiPAP (Chronic) PATIENT HAS OWN MACHINE. He feels he is doing well HTN (hypertension) (Chronic) Is on an paola inhibitor and tolerating well. BP 124/85 Morbid obesity with BMI of 40.0-44.9, adult (Chronic) Uncontrolled diabetes mellitus (Chronic) BG readings in the low 200 range. Seems to need more back ground insulin. He would probably benefit from use of U-500. He reports he has significant supply of insulin at this time and does want to use it up. Enc to monitor BG carefully Non-compliance (Chronic) Hyperlipidemia (Chronic) No recent labs available at time of visit. He reports he is not willing to use a statin. Will obtain labs from [facility] provider. No medical records available at time of visit. Venous stasis dermatitis (Chronic) Diabetic neuropathy associated with type 2 diabetes mellitus (Chronic) Charcot's joint of foot due to diabetes (Chronic) Medical History: Medical History (Last Reviewed 04/17/20 @ 18:[address] Nafisa Garza DO) Alcohol abuse F10.10 Anxiety and depression F41.9, F32.9 Arthritis M19.90 COPD (chronic obstructive pulmonary disease) J44.9 Diabetes type 2, uncontrolled E11.65 dx : 1999 last exacerbation : dka : never hypoglycemic episode : never er visit : never Drug abuse F19.10 GERD (gastroesophageal reflux disease) K21.9 GI problem R19.8 H/O transfusion of whole blood Z92.89 Hearing problem H91.90 High cholesterol E78.00 High triglycerides E78.1 CECILE (obstructive sleep apnea) G47.33 Pneumonia J18.9 Recurrent infections B99.9 Thyroid disorder E07.9 Vision problems H54.7 Vitamin deficiency E56.9 prostate problems HTN (hypertension) I10 Allergies No Known Allergies Allergy (Verified 04/17/20 15:13) Home Medications: Ambulatory Orders Medication Instructions Recorded Ropinirole HCl [Requip] 0.25 mg PO BID 08/17/16 enalapril maleate 20 mg tablet 20 mg PO BID 02/14/18 fluticasone propionate 50 2 spray INTRANASAL DAILY PRN PRN 02/14/18 mcg/actuation nasal spray,suspension levothyroxine 75 mcg tablet 225 mcg PO DAILY@0600 #90 tab 03/02/18 Amlodipine [Norvasc] 2.5 mg PO DAILY 03/21/20 Duloxetine HCl 60 mg PO DAILY 03/21/20 Omeprazole 40 mg PO BID 03/21/20 buPROPion SR [Wellbutrin SR (150mg 150 mg PO BID 03/21/20 tablets)] Insulin Detemir [Levemir FlexPen] 180 units SQ BID 04/17/20 Insulin Aspart [Novolog Flexpen 60 units SUBCUT TIDCM 04/18/20 ([facility])] Surgical History: Surgical History (Last Reviewed 04/17/20 @ 18:[address] 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 Psychiatric History: Anxiety, Depression Lives: Alone Smoking Status: Former smoker Tobacco Use: Non-smoker Alcohol: None Drugs: None - *Family History Paternal Family History: Family History (Last Reviewed 04/17/20 @ 17:31 by JB Simon) Mother Arthritis Diabetes Hypertension High cholesterol Osteoporosis Sister Breast cancer Cancer High cholesterol Brother Lung cancer High cholesterol Father Hypertension High cholesterol History Items: Heart Disease, Hypertension Maternal Family History: Family History (Last Reviewed 04/17/20 @ 17:31 by JB Simon) Mother Arthritis Diabetes Hypertension High cholesterol Osteoporosis Sister Breast cancer Cancer High cholesterol Brother Lung cancer High cholesterol Father Hypertension High cholesterol History Items: Diabetes Sibling Family History: Family History (Last Reviewed 04/17/20 @ 17:31 by JB Simon) Mother Arthritis Diabetes Hypertension High cholesterol Osteoporosis Sister Breast cancer Cancer High cholesterol Brother Lung cancer High cholesterol Father Hypertension High cholesterol History Items: Cancer - sister with breast, brother of lung cancer Review of Systems Comment: Constitutional: Reports: Chills, Fever, Malaise, Fatigue. Denies: Weight Change. HEENT: Denies: Head Aches, Sinus Congestion, Sinus Drainage. Cardiovascular: Denies: Chest Pain, Palpitations. Respiratory: Denies: Cough, Shortness of Breath, Shortness of breath at rest, Sputum production. Gastrointestinal: Denies: Abdominal Pain, Diarrhea, Nausea, Vomiting. Genitourinary: Reports: - - foul smelling, dark urine.. Denies: Dysuria. Musculoskeletal: Denies: Joint Pain, Joint Tenderness. Skin: Reports: Wounds - left foot wound re opened, numbness, serosanguinous drainage. Denies: Rash. Neurological: Denies: Numbness, Tingling, Focal weakness. Psychiatric: Denies: Anxiety, Depression, Homicidal Ideations, Suicidal Ideations. Hematologic/ Lymphatic: Denies: Easy Bruising, Easy Bleeding Patient Problems: Active and Suspected Problems (Last Reviewed 04/17/20 @ 18:[address] Nafisa Garza, DO) MRSA (methicillin resistant Staphylococcus aureus) infection (Acute) Ulcer of left foot with necrosis of muscle (Acute) Diabetic foot infection (Acute) - Physical Exam Vitals/I&O's: General: Alert, Oriented x3. HEENT: PERRLA, EOMI. Neck: Supple, Nontender. No cervical adenopathy. Lungs: Clear to auscultation. Cardiovascular: Regular rate. Abdomen: Soft, Nondistended, Obese Extremities: No edema, Capillary Refill Less than 3 Seconds Skin: Ulcer/ Wound, - - has multiple ulcers left foot with drainage and nonviable tissue. Probes to muscle. Musculoskeletal: has left midfoot amputation. Neurological: Cranial nerves II-XII grossly intact Psych/Mental Status: Normal Affect, Appropriate, Alert and oriented to time, place, person, mood and affect Vital Signs Temp Pulse Resp BP Pulse Ox 99.5 F H 82 18 129/57 H 98 04/18/20 09:00 04/18/20 09:00 04/18/20 09:00 04/18/20 09:00 04/18/20 09:00 Oxygen Delivery Method Room Air Weight: 389 lb 15.999 oz Body Mass Index (BMI) 54.6 Finger Stick Blood Glucose 198 Intake and Output for Last 24 Hours 04/16/20 04/17/20 04/18/20 23:59 23:59 23:59 Intake Total 1850 / 1850 2715.83 / 2715.83 Output Total 600 / 600 Balance 1250 / 1250 2715.83 / 2715.83 Laboratory Results 04/17/20 13:15: ESR > 130 H 04/17/20 13:15: C-React Prot Ext Range 161.00 H 04/17/20 16:17: Lactic Acid 1.4 04/17/20 22:06: POC Glucose 120 H 04/17/20 22:56: S.aureus Protein A PCR POSITIVE H, MRSA (PCR) POSITIVE H 04/18/20 05:08: WBC 15.6 H, RBC 4.30 L, Hgb 11.5 L, Hct 38.0 L, MCV 88.4, MCH 26.7 L, MCHC 30.3 L, RDW Std Deviation 52.7 H, RDW Coeff of Jose 16.1 H, Plt Count 441, MPV 9.5, Immature Gran % (Auto) 4.200 H, Neut % (Auto) 79.7 H, Lymph % (Auto) 8.1 L, [place] % (Auto) 5.3, Eos % (Auto) 2.1, Baso % (Auto) 0.6, Absolute Neuts (auto) 12.4 H, Absolute Lymphs (auto) 1.27, Nucleated RBC % 0, ESR > 130 H 04/18/20 05:08: Sodium 133 L, Potassium 4.5, Chloride 101, Carbon Dioxide 24.0, Anion Gap 8, BUN 20 H, Creatinine 1.90 H, Estim Creat Clear Calc 41.62, Est GFR (MDRD) Af Amer 46 L, Est GFR (MDRD) Non-Af 38 L, BUN/Creatinine Ratio 10.5, Glucose 166 H, Calcium 8.2 L, C-React Prot Ext Range 162.00 H 04/18/20 06:40: POC Glucose 178 H Diagnostic Data Foot X-Ray 04/17/20 16:46 IMPRESSION: Stable postsurgical changes from prior midfoot amputation. No definite radiographic findings of osteomyelitis. Stable soft tissue swelling. No acute fracture or dislocation. Electronically Signed: Gordy Rosa, at 17:02 EDT Tel , Service support , Current Medications Acetaminophen (Tylenol) 650 mg PO Q6H PRN PRN PRN Reason: Pain 1-10 or Fever Last Admin: 04/18/20 00:03 Dose: 650 mg Documented by: Amlodipine Besylate (Norvasc) 2.5 mg PO DAILY [facility] Bupropion HCl (Wellbutrin Sr (150mg Tablets)) 150 mg PO BID [facility] Last Admin: 04/17/20 23:01 Dose: 150 mg Documented by: Dextrose (D50w Syringe) 0 gm IV X1 PRN; Protocol PRN Reason: Hypoglycemia Duloxetine HCl (Cymbalta) 60 mg PO DAILY [facility] Enoxaparin Sodium (Lovenox) 40 mg SC DAILY [facility] Last Admin: 04/18/20 09:05 Dose: Not Given Documented by: Glucagon () 1 mg IM .X1 PRN PRN Reason: Hypoglycemia Piperacillin Sod/Tazobactam (Sod 3.375 gm/ Sodium Chloride) 50 mls @ 12.5 mls/hr IV Q8 [facility] Last Infusion: 04/18/20 10:34 Dose: Infused Documented by: Vancomycin IV Pharmacy to Dose (1 ea/ Sodium Chloride) 500 mls @ 250 mls/hr IV PRN PRN; Protocol PRN Reason: Rx to Dose Sodium Chloride () 1,000 mls @ 125 mls/hr IV .Q8H [facility] Last Infusion: 04/18/20 08:42 Dose: 125 mls/hr Documented by: Sodium Chloride () 250 mls @ 15 mls/hr IV .[id number] PRN PRN Reason: Saline Flush Sodium Chloride () 250 mls @ 15 mls/hr IV .[id number] PRN PRN Reason: Additional IVPB Infusion Vancomycin HCl 1,500 mg/ (Sodium Chloride) 530 mls @ 250 mls/hr IV Q12H [facility] Last Infusion: 04/18/20 08:42 Dose: Infused Documented by: Insulin Human Lispro (Humalog Kwikpen (Bkc)) 0 unit SC ACHS [facility]; Protocol Last Admin: 04/18/20 06:42 Dose: Not Given Documented by: Levothyroxine Sodium (Synthroid) 225 mcg PO DAILY@0600 [facility] Last Admin: 04/18/20 06:34 Dose: 225 mcg Documented by: Lisinopril (Zestril) 20 mg PO BID [facility] Last Admin: 04/17/20 23:02 Dose: 20 mg Documented by: Nutritional Formula (Lactose Free) (Glucerna Shake) 120 ml PO TIDCM [facility] Last Admin: 04/18/20 09:01 Dose: Not Given Documented by: Ondansetron HCl (Zofran Odt) 4 mg PO Q4H PRN PRN PRN Reason: NAUSEA Oxycodone HCl (Oxyir) 5 mg PO Q6H PRN PRN PRN Reason: Pain Score 6-10/10 Last Admin: 04/17/20 20:11 Dose: 5 mg Documented by: Pantoprazole Sodium (Protonix) 40 mg PO BID [facility] Last Admin: 04/17/20 23:01 Dose: 40 mg Documented by: Pramipexole Dihydrochloride (Mirapex) 0.125 mg PO BID [facility] Last Admin: 04/17/20 23:01 Dose: 0.125 mg Documented by: Sodium Chloride () 2 - 6 ml IV UD PRN PRN Reason: Pediatric Saline Flush Assessment/Plan All Active Problems (Last Reviewed 04/17/20 @ 18:[address] Nafisa Garza DO) MRSA (methicillin resistant Staphylococcus aureus) infection (Acute) Ulcer of left foot with necrosis of muscle (Acute) Left foot infection (Acute) Left foot infection (Acute) Diabetic foot infection (Acute) Sepsis (Acute) Diabetic foot ulcer associated with type 2 diabetes mellitus (Acute) Acute renal failure (Resolved) COPD exacerbation (Resolved) Foot ulcer, left (Resolved) Hospital-acquired pneumonia (Resolved) Necrotizing fasciitis (Resolved) Non-ST elevated myocardial infarction (Resolved) Osteomyelitis of ankle or foot (Resolved) left foot neuropathic deep wound infection (Resolved) 1. Nonhealing infected diabetic ulcers left foot. 2. Sepsis 3. MRSA. 4. Diabetic neuropathy 5. Obesity Foot x-ray reviewed. Continue IV antibiotics with Vancomycin and Zosyn. Patient has multiple infected diabetic ulcers left foot along with mid foot amputation. His foot ulcers need aggressive debridement with involvement of underlying muscle. These infections are at risk of spreading more proximally. The left foot is not salvageable at this point. He would benefit from a below knee amputation. If the infection spreads more proximally then he would need an above knee amputation which has a tougher rehab potential without the use of his agdaagux knee. By proceeding now, that risk is minimized. He is aware that recurrent infections after a BKA can lead to a revision AKA. It was also discussed with the patient that if the infection spreads systemically he is at risk for endocarditis. Patient was informed of the risks and complications of the procedure including alternatives to surgery. These were discussed with the patient personally. Patient voices understanding and wishes to proceed. Will plan on the surgery tomorrow under general anesthesia. A drain will be placed that will be removed in 2-3 weeks. I anticipate long-term IV antibiotics through a PICC line. After surgery he will need rehab. Anticipate increased metabolic needs from the infection. Will check a Prealbumin and encourage nutritional supplementation with protein to help the healing process. Procedure Criteria Procedure Type: Essential Procedure Essential: Yes Criteria Statement: On 01/16/2020 the [place] Department of [employer] ([facility]) Public Order signed by [facility] Director Lauren Randle M.D., regarding the Management of Non-Essential Surgeries and Procedures for the purpose of preserving Personal Protective Equipment (PPE) and critical hospital capacity and resources within [place] went into effect as of 01/17/2020 at 5:00PM. According to the [facility] Public Order: This action will remain in full force and effect until the State of Emergency declared by the Governor no longer exists or the Director of the [facility] rescinds or modifies this Order. This [facility] order stated all non-essential or elective surgeries and procedures that utilize PPE should be delayed unless there is undue risk to the current or future health of a patient. After reviewing the aforementioned [facility] Public Order and the patient's clinical case, I have determined that the scheduled procedure meets the criteria to go forward. Risk to Patient if Procedure Delayed: Risk of rapidly worsening to severe symptoms if delayed - He has recurrent diabetic infections left foot with sepsis and is at risk for worsening symptoms that may spread proximally as well as systemically which can be life threatening. Proximal spread of the infection would necessitate an AKA as opposed to a BKA. An AKA has much harder rehab potential. Inpatient E&M: 44962 Init Hosp L2 - ICD-10 - L97.523, E11.69, A41.9, A49.02, E11.40, E66.01, E11.9
[2020-04-18] MEDS: Insulin Lispro 100 UNIT/ML INSULN.PEN SC ×3 (11:53→22:55)
[2020-04-18 12:20] LABS: Bedside Glucose 227 mg/dL (70-110)
--- NOTE | 2020-04-18 13:17 | PCM.PROGNOTE ---
Patient Problems: Active and Suspected Problems (Last Reviewed 04/17/20 @ 18:[address] Nafisa Garza, DO) Ulcer of left foot with necrosis of muscle (Acute) Diabetic foot infection (Acute) Subjective: Patient seen and examined. States he did not feel well overnight with intermittent nausea, fever, chills and general malaise. Feels improved this morning however states he does not want to be bothered. Dr. Lundy consulted, plan for below the knee amputation. - Physical Exam Vitals/I&O's: Vital Signs Temp Pulse Resp BP Pulse Ox 99.5 F H 82 18 129/57 H 98 04/18/20 09:00 04/18/20 09:00 04/18/20 09:00 04/18/20 09:00 04/18/20 09:00 Oxygen Delivery Method Room Air Weight: 389 lb 15.999 oz Body Mass Index (BMI) 54.6 Finger Stick Blood Glucose 198 Intake and Output for Last 24 Hours 04/16/20 04/17/20 04/18/20 23:59 23:59 23:59 Intake Total 1850 / 1850 2815.83 / 2815.83 Output Total 600 / 600 500 / 500 Balance 1250 / 1250 2315.83 / 2315.83 General: Alert, Oriented x3, Cooperative HEENT: Atraumatic, PERRLA, EOMI, Normocephalic Neck: Supple, No JVD, Negative Carotid Bruits Lungs: Clear to auscultation, Diminished Cardiovascular: Regular rate, No murmurs Abdomen: Bowel Sounds Present, Soft, Non Tender, Non-Distended, Obese Extremities: No clubbing, No cyanosis, No edema, Capillary Refill Less than 3 Seconds Skin: No rashes, No breakdown, - - Left foot wounds, dressing intact with drainage noted on heel. Musculoskeletal: No Tenderness to Palpation of Joints or Extremities Neurological: Cranial nerves II-XII grossly intact Psych/Mental Status: Flat Affect Microbiology Past 72 Hours 04/17/20 16:06 Wound - Ankle Wound Culture - Preliminary Mixed Gram Pos & Gram Neg Org 04/17/20 16:06 Wound - Left Foot Wound Culture - Preliminary Mixed Gram Pos & Gram Neg Org Laboratory Results 04/17/20 13:15: ESR > 130 H 04/17/20 13:15: C-React Prot Ext Range 161.00 H 04/17/20 16:17: Lactic Acid 1.4 04/17/20 22:06: POC Glucose 120 H 04/17/20 22:56: S.aureus Protein A PCR POSITIVE H, MRSA (PCR) POSITIVE H 04/18/20 05:08: WBC 15.6 H, RBC 4.30 L, Hgb 11.5 L, Hct 38.0 L, MCV 88.4, MCH 26.7 L, MCHC 30.3 L, RDW Std Deviation 52.7 H, RDW Coeff of Jose 16.1 H, Plt Count 441, MPV 9.5, Immature Gran % (Auto) 4.200 H, Neut % (Auto) 79.7 H, Lymph % (Auto) 8.1 L, [place] % (Auto) 5.3, Eos % (Auto) 2.1, Baso % (Auto) 0.6, Absolute Neuts (auto) 12.4 H, Absolute Lymphs (auto) 1.27, Nucleated RBC % 0, ESR > 130 H 04/18/20 05:08: Sodium 133 L, Potassium 4.5, Chloride 101, Carbon Dioxide 24.0, Anion Gap 8, BUN 20 H, Creatinine 1.90 H, Estim Creat Clear Calc 41.62, Est GFR (MDRD) Af Amer 46 L, Est GFR (MDRD) Non-Af 38 L, BUN/Creatinine Ratio 10.5, Glucose 166 H, Calcium 8.2 L, C-React Prot Ext Range 162.00 H 04/18/20 06:40: POC Glucose 178 H 04/18/20 11:30: COVID-19 ([facility]) Pending 04/18/20 11:46: POC Glucose 227 H Current Medications Acetaminophen (Tylenol) 650 mg PO Q6H PRN PRN PRN Reason: Pain 1-10 or Fever Last Admin: 04/18/20 00:03 Dose: 650 mg Documented by: Amlodipine Besylate (Norvasc) 2.5 mg PO DAILY [facility] Bupropion HCl (Wellbutrin Sr (150mg Tablets)) 150 mg PO BID [facility] Last Admin: 04/17/20 23:01 Dose: 150 mg Documented by: Dextrose (D50w Syringe) 0 gm IV X1 PRN; Protocol PRN Reason: Hypoglycemia Duloxetine HCl (Cymbalta) 60 mg PO DAILY [facility] Enoxaparin Sodium (Lovenox) 40 mg SC DAILY [facility] Last Admin: 04/18/20 09:05 Dose: Not Given Documented by: Glucagon () 1 mg IM .X1 PRN PRN Reason: Hypoglycemia Piperacillin Sod/Tazobactam (Sod 3.375 gm/ Sodium Chloride) 50 mls @ 12.5 mls/hr IV Q8 [facility] Last Infusion: 04/18/20 10:34 Dose: Infused Documented by: Vancomycin IV Pharmacy to Dose (1 ea/ Sodium Chloride) 500 mls @ 250 mls/hr IV PRN PRN; Protocol PRN Reason: Rx to Dose Sodium Chloride () 1,000 mls @ 125 mls/hr IV .Q8H [facility] Last Infusion: 04/18/20 08:42 Dose: 125 mls/hr Documented by: Sodium Chloride () 250 mls @ 15 mls/hr IV .[id number] PRN PRN Reason: Saline Flush Sodium Chloride () 250 mls @ 15 mls/hr IV .[id number] PRN PRN Reason: Additional IVPB Infusion Vancomycin HCl 1,500 mg/ (Sodium Chloride) 530 mls @ 250 mls/hr IV Q12H [facility] Last Infusion: 04/18/20 08:42 Dose: Infused Documented by: Insulin Human Lispro (Humalog Kwikpen (Bkc)) 0 unit SC [facility]; Protocol Last Admin: 04/18/20 11:53 Dose: 6 units Documented by: Levothyroxine Sodium (Synthroid) 225 mcg PO DAILY@0600 [facility] Last Admin: 04/18/20 06:34 Dose: 225 mcg Documented by: Lisinopril (Zestril) 20 mg PO BID [facility] Last Admin: 04/17/20 23:02 Dose: 20 mg Documented by: Nutritional Formula (Lactose Free) (Glucerna Shake) 120 ml PO TIDCM [facility] Last Admin: 04/18/20 09:01 Dose: Not Given Documented by: Ondansetron HCl (Zofran Odt) 4 mg PO Q4H PRN PRN PRN Reason: NAUSEA Oxycodone HCl (Oxyir) 5 mg PO Q6H PRN PRN PRN Reason: Pain Score 6-10/10 Last Admin: 04/17/20 20:11 Dose: 5 mg Documented by: Pantoprazole Sodium (Protonix) 40 mg PO BID [facility] Last Admin: 04/17/20 23:01 Dose: 40 mg Documented by: Pramipexole Dihydrochloride (Mirapex) 0.125 mg PO BID [facility] Last Admin: 04/17/20 23:01 Dose: 0.125 mg Documented by: Sodium Chloride () 2 - 6 ml IV UD PRN PRN Reason: Pediatric Saline Flush Medical Necessity - Tobacco Use Smoking Status: Former smoker Tobacco Use: Non-smoker Assessment/Plan All Active Problems (Last Reviewed 04/17/20 @ 18:[address] Nafisa Garza, DO) Ulcer of left foot with necrosis of muscle (Acute) Left foot infection (Acute) Left foot infection (Acute) Diabetic foot infection (Acute) Sepsis (Acute) Diabetic foot ulcer associated with type 2 diabetes mellitus (Acute) Acute renal failure (Resolved) COPD exacerbation (Resolved) Foot ulcer, left (Resolved) Hospital-acquired pneumonia (Resolved) Necrotizing fasciitis (Resolved) Non-ST elevated myocardial infarction (Resolved) Osteomyelitis of ankle or foot (Resolved) left foot neuropathic deep wound infection (Resolved) 1. Sepsis secondary to non-healing left foot diabetic infected ulceration-Podiatry and Dr. Lundy following. Plan for left BKA. Recent MRI in March demonstrated amputation of the midfoot without osteomyelitis. Continue IV vancomycin and IV Zosyn. Infectious disease consulted. Previous cultures grew MRSA, strep, Pseudomonas, anaerobic cocci and Proteus. Blood cultures pending. 2. Type 2 diabetes mellitus with nephropathy and [id number] with sliding scale insulin. Continue home insulin regimen. Recent hemoglobin A1c 8.6%. 3. Chronic kidney disease stage III-slightly above baseline however no acute kidney injury. Trend BMP. 4. Hypertension-stable, continue amlodipine, enalapril regimen. 5. Hypothyroidism-continue Synthroid regimen. 6. Depression/anxiety-continue Wellbutrin, Celexa, duloxetine regimen. Patient on PRN Ativan as well. 7. GERD-continue PPI. 8. Restless leg syndrome-continue PRN Requip. 9. CECILE-continue home Pap regimen. 10. Morbid obesity-encouraged diet and lifestyle modifications. Nutrition consult. DVT prophylaxis- Lovenox sc This patient was seen by EASTON Mcgregor under the supervision of Dr. Rivera.
--- NOTE | 2020-04-18 13:33 | EKG12_ITS ---
Test Reason : PREOP Blood Pressure : / mmHG Vent. Rate : 092 BPM Atrial Rate : 092 BPM P-R Int : 216 ms QRS Dur : 094 ms QT Int : 342 ms P-R-T Axes : 023 072 073 degrees QTc Int : 422 ms Sinus rhythm with sinus arrhythmia with 1st degree A-V block Otherwise normal ECG When compared with ECG of 03-OCT-2016 14:18, No significant change was found Confirmed by MAGDALENO DACOSTA, FABRIZIO ([id number]), technical editor ALYSSA DE ANDA ([id number]) on 04/23/2020 11:03:20 AM Referred By: Confirmed By:FABRIZIO DOLAN MD
[2020-04-18] MEDS: buPROPion (SR) 150 MG Tablet.SA PO ×2 (14:08→22:55)
[2020-04-18] MEDS: Lisinopril 20 MG Tablet PO ×2 (14:08→22:55)
[2020-04-18] MEDS: Pramipexole Di-HCl 0.125 MG Tablet PO ×2 (14:09→22:55)
[2020-04-18] MEDS: DULoxetine Hcl 60 MG Capsule PO (14:09)
[2020-04-18] MEDS: amLODIPine 2.5 MG Tablet PO (14:09)
[2020-04-18] MEDS: Pantoprazole Sodium 40 MG Tablet PO ×2 (14:09→22:55)
[2020-04-18 14:10] VITALS: BP 139/53; PULSE 92; RESP 18; TEMP 37.7; O2SAT 98
--- NOTE | 2020-04-18 14:57 | CASEMGMT ---
ROCKY MCGARRY chart review: Patient was admitted on 03/21/2020-03/25/2020-for diabetic foot infection. Patient had bedside debridement. Patient had denied HHC at discharge and would complete his own wound care. ROCKY MCGARRY received called on 03/28/2020 from patient requesting HHC and was agreeable to [facility]. ROCKY MCGARRY arranged for HHC. Patient followed up in wound center on 04/17 and was sent to [facility]. Patient is scheduled to have left BKA on 04/19/2020. CM/SW updated by nursing that patient would like to go to rehab unit at discharge. CM/SW to follow this patient and plan for a safe discharge. Disposition Plan: RU vs SNF.
--- NOTE | 2020-04-18 15:00 | CASEMGMT ---
Addendum entered by Shi Cho 04/18/20 15:28: SW in to speak with pt. SW introduced self and role at [facility]. Pt is alert and orientated x3. SW updated pt that this worker placed a call to [facility] and left message regarding bed availability and SW is waiting for call back. Pt states understanding and is agreeable to [facility]. Plan: [facility] pending acceptance Original Note: Social Work Note SW updated by RN that pt is scheduled for amputation tomorrow and would like to stay at [facility] for rehabilitation after surgery. Pt may qualify for [facility] as pt is getting below knee amputation. TANGELA placed a call to Shirin with [facility] regarding bed availability. SW attempted to meet with pt. Pt currently getting breathing treatment. SW will follow up with pt as time allows. Plan: TBD Shi Cho CERTIFIED NURSING ATTENDANT, MICR[employer]OUNTER
[2020-04-18] MEDS: DAKIN'S SOL HALF STRENGTH (=0.25%) 1 APPLIC TOPICAL ×2 (16:09→23:03)
[2020-04-18 16:26] LABS: Bedside Glucose 281 mg/dL (70-110)
--- NOTE | 2020-04-18 17:15 | CON.PCM_ITS ---
Problem List (1) Left foot infection Status: Acute Reason for Consult: foot infection Consulted by: Dr. Garza History of Present Illness: The patient is a 64 year old M with DM, charcot foot, prior osteo of L foot s/p TMA, now presented to ED with fever and several days of progressive L foot redness, maceration, drainage, and odor. Started on vanc/zosyn, plan is for BKA tomorrow. Feeling better today. Full ROS performed and neg except as noted above. - Medical History Past Medical History (Chronic Problems): Chronic Problems (Last Reviewed 04/17/20 @ 18:[address] Nafisa Garza, DO) Alcoholism in recovery (Chronic) COPD (chronic obstructive pulmonary disease) (Chronic) Diabetic neuropathy (Chronic) CAD (coronary artery disease) (Chronic) Diabetes mellitus (Chronic) Hypothyroidism (Chronic) Reports has been more tired and lacking interest in doing things at this time. He feels he is gaining more weight and this he does not want. Rechech thyroid levels. CECILE treated with BiPAP (Chronic) PATIENT HAS OWN MACHINE. He feels he is doing well HTN (hypertension) (Chronic) Is on an paola inhibitor and tolerating well. BP 124/85 Morbid obesity with BMI of 40.0-44.9, adult (Chronic) Uncontrolled diabetes mellitus (Chronic) BG readings in the low 200 range. Seems to need more back ground insulin. He would probably benefit from use of U-500. He reports he has significant supply of insulin at this time and does want to use it up. Enc to monitor BG carefully Non-compliance (Chronic) Hyperlipidemia (Chronic) No recent labs available at time of visit. He reports he is not willing to use a statin. Will obtain labs from [facility] provider. No medical records available at time of visit. Venous stasis dermatitis (Chronic) Diabetic neuropathy associated with type 2 diabetes mellitus (Chronic) Charcot's joint of foot due to diabetes (Chronic) Allergies/Adverse Reactions: Allergies No Known Allergies Allergy (Verified 04/17/20 15:13) Home Medications: Ambulatory Orders Medication Instructions Recorded Ropinirole HCl [Requip] 0.25 mg PO BID 08/17/16 enalapril maleate 20 mg tablet 20 mg PO BID 02/14/18 fluticasone propionate 50 2 spray INTRANASAL DAILY PRN PRN 02/14/18 mcg/actuation nasal spray,suspension levothyroxine 75 mcg tablet 225 mcg PO DAILY@0600 #90 tab 03/02/18 Amlodipine [Norvasc] 2.5 mg PO DAILY 03/21/20 Duloxetine HCl 60 mg PO DAILY 03/21/20 Omeprazole 40 mg PO BID 03/21/20 buPROPion SR [Wellbutrin SR (150mg 150 mg PO BID 03/21/20 tablets)] Insulin Detemir [Levemir FlexPen] 180 units SQ BID 04/17/20 Insulin Aspart [Novolog Flexpen 60 units SUBCUT TIDCM 04/18/20 ([facility])] - Social History SMOKING STATUS:: Former smoker Vital Signs Temp Pulse Resp BP Pulse Ox 99.9 F H 92 18 139/53 H 98 04/18/20 14:10 04/18/20 14:10 04/18/20 14:10 04/18/20 14:10 04/18/20 14:10 Oxygen Delivery Method Room Air Weight: 176.901 kg Body Mass Index (BMI) 54.6 Finger Stick Blood Glucose 198 Microbiology Past 72 Hours 04/17/20 16:06 Gram Stain - Final Wound - Ankle Wound Culture - Preliminary Mixed Gram Pos & Gram Neg Org 04/17/20 16:06 Gram Stain - Final Wound - Left Foot Wound Culture - Preliminary Mixed Gram Pos & Gram Neg Org Laboratory Tests Past 24 Hrs 04/17/20 04/17/20 04/17/20 13:15 13:15 22:56 WBC RBC Hgb Hct MCV MCH MCHC RDW Std Deviation RDW Coeff of Jose Plt Count MPV Immature Gran % (Auto) Neut % (Auto) Lymph % (Auto) Citrus % (Auto) Eos % (Auto) Baso % (Auto) Absolute Neuts (auto) Absolute Lymphs (auto) Nucleated RBC % ESR > 130 H Sodium Potassium Chloride Carbon Dioxide Anion Gap BUN Creatinine Estim Creat Clear Calc Est GFR (MDRD) Af Amer Est GFR (MDRD) Non-Af BUN/Creatinine Ratio Glucose Calcium C-React Prot Ext Range 161.00 H COVID-19 (SHAYY) S.aureus Protein A PCR POSITIVE H MRSA (PCR) POSITIVE H 04/18/20 04/18/20 04/18/20 05:08 05:08 11:30 WBC 15.6 H RBC 4.30 L Hgb 11.5 L Hct 38.0 L MCV 88.4 MCH 26.7 L MCHC 30.3 L RDW Std Deviation 52.7 H RDW Coeff of Jose 16.1 H Plt Count 441 MPV 9.5 Immature Gran % (Auto) 4.200 H Neut % (Auto) 79.7 H Lymph % (Auto) 8.1 L Citrus % (Auto) 5.3 Eos % (Auto) 2.1 Baso % (Auto) 0.6 Absolute Neuts (auto) 12.4 H Absolute Lymphs (auto) 1.27 Nucleated RBC % 0 ESR > 130 H Sodium 133 L Potassium 4.5 Chloride 101 Carbon Dioxide 24.0 Anion Gap 8 BUN 20 H Creatinine 1.90 H Estim Creat Clear Calc 41.62 Est GFR (MDRD) Af Amer 46 L Est GFR (MDRD) Non-Af 38 L BUN/Creatinine Ratio 10.5 Glucose 166 H Calcium 8.2 L C-React Prot Ext Range 162.00 H COVID-19 (SHAYY) Not Detected S.aureus Protein A PCR MRSA (PCR) - Other Studies Radiology: [] reviewed Other Studies: [] Route of nutrition/ use of supplements: [] Nutritional Intake: [] IV Site: [] Abreu Catheter: [] - Physical Exam General: Alert, Oriented x3, Cooperative, No apparent distress HEENT: Atraumatic, PERRLA, EOMI Neck: Supple, No Nodes Lungs: Clear to auscultation, Normal air movement Cardiovascular: Regular rate, Regular Rhythm Abdomen: Soft, Non Tender, Non-Distended, Obese Extremities: Edema Skin: Ulcer/ Wound - L TMA with deep wound infection IV Site: Peripheral, without redness Musculoskeletal: No Tenderness to Palpation of Joints or Extremities Neurological: Cranial nerves II-XII grossly intact - Assessment/Plan Antibiotics: [] Assessment/Plan: [] Active and Suspected Problems (Last Reviewed 04/17/20 @ 18:[address] Nafisa Garza, DO) Ulcer of left foot with necrosis of muscle (Acute) Diabetic foot infection (Acute) L DM foot infection - cont empiric vanc/zosyn, OR tomorrow for BKA. Wound cx with mixed dhiraj so far. Wound pcr (+) MRSA. covid neg. Will follow, thank you.
[2020-04-18 20:14] VITALS: BP 142/72; PULSE 87; RESP 18; TEMP 37.3; O2SAT 100
[2020-04-18 23:11] LABS: Bedside Glucose 263 mg/dL (70-110)
[2020-04-19] VITALS (16 sets, daily range): BP systolic 127–180; BP diastolic 53–96; PULSE 68–94; RESP 16–18; TEMP 36.3–37.3; O2SAT 92–96; BMI 54.6
--- NOTE | 2020-04-19 | AMP_PTH ---
PATIENT: ILIANA WANG LOC: 3 U#:[id number] AGE/SX: 64/M ROOM: [facility] RE04/17/[address]: Dr. Jonas Rivera, : 1955 BED: 1 DIS: 04/21/2020 SPEC #: [id number] RECD: 05/10/20 13:07 STATUS: IRENE REQ #: [id number] ROLLY: 04/19/20 00:[address]: Mando Lundy DEPT: SURGICAL PATHOLOGY RECD BY: Kevin Carmona ENTERED: 05/10/20 13:08 SP TYPE: Amputation OTHR DR: Dr. Sarah Soto, DPM MD Dr. Nafisa Bo, DO Dr. Jonas Rivera, MD Dr. Maico Muniz Dr., MD Tissues: Leg, NOS Procedures: Decalcification bone/plaque Surgery Specimen Level V Comments: @ Ordering doctor for DEC edited from to DR.JSLABY Jules SCHMID at 05/13/20922 @ Ordering doctor for SUIV edited from to DR.JSLABY Vicente by BINU at 05/13/20 0923 @ Submitting doctor edited from to DR.JSLABY Jules SCHMID at 05/13/2023 HEADER OPERATION: Left below knee amputation PRE-OP DIAGNOSIS: Nonhealing, infected diabetic ulcer left foot; sepsis; neuropathy TISSUE SUBMITTED: Left below knee amputation MICROSCOPIC DIAGNOSIS Left below knee amputation: Skin and soft tissue with ulceration, acute and chronic inflammation and granulation. Bone beneath ulcer with acute osteomyelitis. Anterior tibial artery with moderate to severe atherosclerotic disease. Posterior tibial artery with occlusive atherosclerotic disease. Bone, skin and soft tissue at margins of resection with no pathologic change. AM:licha 05/15/20 MICROSCOPIC DESCRIPTION Slides are reviewed. GROSS DESCRIPTION Received labeled with the patient's name and designated left below knee amputation. The specimen consists of a below knee amputation of left lower extremity. The leg measures from posterior cutaneous resection margin to the heel 19 cm. The posterior cutaneous resection margin is 7 cm below the anterior cutaneous resection margin. 4 cm of fibula and 1 cm of tibia is projecting beyond the anterior cutaneous resection margin. The leg is previously already amputated at the trans-tarsometatarsal. The skin shows an extensive area of ulceration on the bottom of the foot measuring 5 x 4 cm. Two additional areas of ulceration are also noted at the medial and lateral surface of the foot. Tissue underneath the ulcerated area shows brown, purulent exudation. Anterior tibial vessel and posterior tibial vessel and dorsalis pedis vessel are resected. Guide Excursion sections are submitted in eight cassettes as follows: 1 - cutaneous and skeletal muscle tissue resection margin, 2 - ulcerated area, 3 - soft tissue adjacent to the bone underneath the ulcerated area, 4 - bone underneath the ulcerated area submitted after decalcification, 5??bone marrow at the resection margin, 6 - dorsalis pedis vessel, 7 - anterior tibial vessel, 8 - posterior tibial vessel. Cassette 4 & 7 are submitted after decalcification. / SJ:licha 05/10/20 TC:2 CPT: 83020, 46525
[2020-04-19] MEDS: 0.9% Normal Saline 1,000 ML 125 ML IV (02:56)
[2020-04-19 06:34] LABS: Hematocrit 34.8 % (40-54); Hemoglobin 10.6 g/dL (13.0-16.5); Mean Corp Hgb Conc 30.5 g/dL (32-36); Mean Corpuscular Hgb 26.4 pg (27.0-32.0); Mean Corpuscular Volume 86.8 fL (80-94); Mean Platelet Vol. 9.2 fl (6.2-12.0); Platelet Count 443 K/mm3 (150-450); RBC Distribution Width CV 16.1 % (11.6-14.6); RBC Distribution Width SD 50.4 fl (35.1-43.9); Red Blood Count 4.01 M/mm3 (4.6-6.2); White Blood Count 12.5 K/mm3 (4.4-11.0)
[2020-04-19 06:45] LABS: Anion Gap 8 (5-15); BUN 21 mg/dL (7-18); BUN/Creat Ratio 13.4 RATIO (10-20); Calcium,Total 8.6 mg/dL (8.5-10.1); Chloride 102 mmol/L (98-107); Creatinine, Serum 1.57 mg/dL (0.70-1.30); EST Glomerular Filtration Rate 48 mL/min (>60); Est Glom Filt Rate - Afr Amer 58 mL/min (>60); Estimated Creatinine Clearance 50.37 ml/min; Glucose 256 mg/dL (74-106); Potassium 4.8 mmol/L (3.5-5.1); Sodium Level 133 mmol/L (136-145)
[2020-04-19 06:50] LABS: Vancomycin, Trough Level 20.3 ug/mL (5.0-15.0)
[2020-04-19] MEDS: Levothyroxine 75 MCG Tablet 225 MCG PO (07:00)
[2020-04-19] MEDS: Insulin Lispro 100 UNIT/ML INSULN.PEN SC ×4 (07:00→22:33)
[2020-04-19 07:15] LABS: Bedside Glucose 264 mg/dL (70-110)
--- NOTE | 2020-04-19 10:21 | PCM.RX.CS ---
Consult Pharmacy has been consulted to manage selected antiobiotic: Vancomycin Type of Consult: Follow-up Prior Doses of Antibiotics Received/Current Regimen: Medications Vancomycin HCl 1,500 mg/ (Sodium Chloride) 530 mls @ 250 mls/hr IV Q12H [facility] Last Admin: 04/19/20 07:01 Dose: 250 mls/hr Documented by: Labs: Sodium 133 mmol/L (136-145) L 04/19/20 06:15 Potassium 4.8 mmol/L (3.5-5.1) 04/19/20 06:15 Chloride 102 mmol/L (98-107) 04/19/20 06:15 Carbon Dioxide 23.0 mmol/L (21.0-32.0) 04/19/20 06:15 Anion Gap 8 (5-15) 04/19/20 06:15 BUN 21 mg/dL (7-18) H 04/19/20 06:15 Creatinine 1.57 mg/dL (0.70-1.30) H 04/19/20 06:15 Est GFR (MDRD) Af Amer 58 mL/min (>60) L 04/19/20 06:15 Est GFR (MDRD) Non-Af 48 mL/min (>60) L 04/19/20 06:15 BUN/Creatinine Ratio 13.4 RATIO (10-20) 04/19/20 06:15 Glucose 256 mg/dL (74-106) H 04/19/20 06:15 Vancomycin Trough 20.3 ug/mL (5.0-15.0) H 04/19/20 06:15 Microbiology: Microbiology 04/17/20 16:06 Wound - Ankle Gram Stain - Final 04/17/20 16:06 Wound - Ankle Wound Culture - Preliminary Mixed Gram Pos & Gram Neg Org 04/17/20 16:06 Wound - Left Foot Gram Stain - Final 04/17/20 16:06 Wound - Left Foot Wound Culture - Preliminary Mixed Gram Pos & Gram Neg Org Weight used for dosin kg Goal Trough: 15-20 mcg/mL Pharmacy Plan for Drug Dosin hour vanc level slightly above goal range, true 12 hour level calculated in range. However, patient is not yet at steady state, but renal function has improved from admission. Recommend to reduce slightly to 1250mg IV q12 and allow a few extra hours for clearance prior to next dose. Recheck in 2 days. Pharmacy Service will continue to monitor and adjust dosing as required. Follow-Up Labs: Trough Vancomycin - 04/21 @ 9240
--- NOTE | 2020-04-19 10:36 | PN_ITS ---
Patient Problems: Active and Suspected Problems (Last Reviewed 04/17/20 @ 18:[address] Nafisa Garza, DO) Ulcer of left foot with necrosis of muscle (Acute) Diabetic foot infection (Acute) Subjective: Patient seen and examined. Irritable this morning, wants to be left alone. To undergo left BKA this afternoon. Patient agreeable to rehab at discharge. - Physical Exam Vitals/I&O's: Vital Signs Temp Pulse Resp BP Pulse Ox 98 F 68 18 140/56 H 96 04/19/20 02:50 04/19/20 02:50 04/19/20 02:50 04/19/20 02:50 04/19/20 02:50 Oxygen Delivery Method CPAP Weight: 389 lb 15.999 oz Body Mass Index (BMI) 54.6 Finger Stick Blood Glucose 198 Intake and Output for Last 24 Hours 04/17/20 04/18/20 04/19/20 23:59 23:59 23:59 Intake Total 1850 / 1850 5052.75 / 5052.75 2790.42 / 2790.42 Output Total 600 / 600 1000 / 1000 1900 / 1900 Balance 1250 / 1250 4052.75 / 4052.75 890.42 / 890.42 General: Alert, Oriented x3, Cooperative HEENT: Atraumatic, PERRLA, EOMI, Normocephalic Neck: Supple, No JVD, Negative Carotid Bruits Lungs: Clear to auscultation, Diminished Cardiovascular: Regular rate, No murmurs Abdomen: Bowel Sounds Present, Soft, Non Tender, Non-Distended Extremities: No clubbing, No cyanosis, No edema, Capillary Refill Less than 3 Seconds Skin: No rashes, No breakdown Musculoskeletal: No Tenderness to Palpation of Joints or Extremities Neurological: Cranial nerves II-XII grossly intact, Neuro grossly intact Psych/Mental Status: Flat Affect Microbiology Past 72 Hours 04/17/20 16:06 Wound - Ankle Gram Stain - Final 04/17/20 16:06 Wound - Ankle Wound Culture - Preliminary Mixed Gram Pos & Gram Neg Org 04/17/20 16:06 Wound - Left Foot Gram Stain - Final 04/17/20 16:06 Wound - Left Foot Wound Culture - Preliminary Mixed Gram Pos & Gram Neg Org Laboratory Results 04/18/20 11:30: COVID-19 (SHAYY) Not Detected 04/18/20 11:46: POC Glucose 227 H 04/18/20 16:05: POC Glucose 281 H 04/18/20 22:46: POC Glucose 263 H 04/19/20 06:15: Vancomycin Trough 20.3 H 04/19/20 06:15: WBC 12.5 H, RBC 4.01 L, Hgb 10.6 L, Hct 34.8 L, MCV 86.8, MCH 26.4 L, MCHC 30.5 L, RDW Std Deviation 50.4 H, RDW Coeff of Jose 16.1 H, Plt Count 443, MPV 9.2 04/19/20 06:15: Sodium 133 L, Potassium 4.8, Chloride 102, Carbon Dioxide 23.0, Anion Gap 8, BUN 21 H, Creatinine 1.57 H, Estim Creat Clear Calc 50.37, Est GFR (MDRD) Af Amer 58 L, Est GFR (MDRD) Non-Af 48 L, BUN/Creatinine Ratio 13.4, Glucose 256 H, Calcium 8.6 04/19/20 06:58: POC Glucose 264 H Current Medications Acetaminophen (Tylenol) 650 mg PO Q6H PRN PRN PRN Reason: Pain 1-10 or Fever Last Admin: 04/18/20 00:03 Dose: 650 mg Documented by: Amlodipine Besylate (Norvasc) 2.5 mg PO DAILY [facility] Last Admin: 04/18/20 14:09 Dose: 2.5 mg Documented by: Bupropion HCl (Wellbutrin Sr (150mg Tablets)) 150 mg PO BID [facility] Last Admin: 04/18/20 22:55 Dose: 150 mg Documented by: Dextrose (D50w Syringe) 0 gm IV X1 PRN; Protocol PRN Reason: Hypoglycemia Duloxetine HCl (Cymbalta) 60 mg PO DAILY [facility] Last Admin: 04/18/20 14:09 Dose: 60 mg Documented by: Enoxaparin Sodium (Lovenox) 40 mg SC DAILY [facility] Last Admin: 04/19/20 07:33 Dose: Not Given Documented by: Glucagon () 1 mg IM .X1 PRN PRN Reason: Hypoglycemia Piperacillin Sod/Tazobactam (Sod 3.375 gm/ Sodium Chloride) 50 mls @ 12.5 mls/hr IV Q8 [facility] Last Admin: 04/19/20 08:34 Dose: 12.5 mls/hr Documented by: Vancomycin IV Pharmacy to Dose (1 ea/ Sodium Chloride) 500 mls @ 250 mls/hr IV PRN PRN; Protocol PRN Reason: Rx to Dose Sodium Chloride () 1,000 mls @ 125 mls/hr IV .Q8H [facility] Last Infusion: 04/19/20 09:09 Dose: 125 mls/hr Documented by: Sodium Chloride () 250 mls @ 15 mls/hr IV .[id number] PRN PRN Reason: Saline Flush Last Infusion: 04/19/20 03:00 Dose: 15 mls/hr Documented by: Sodium Chloride () 250 mls @ 15 mls/hr IV .[id number] PRN PRN Reason: Additional IVPB Infusion Vancomycin HCl 1,250 mg/ (Sodium Chloride) 275 mls @ 167 mls/hr IV Q12H [facility] Insulin Glargine (Lantus (Bkc)) 20 units SC BID [facility] Last Admin: 04/19/20 10:28 Dose: Not Given Documented by: Insulin Human Lispro (Humalog Kwikpen (Bkc)) 0 unit SC [facility]; Protocol Last Admin: 04/19/20 07:00 Dose: 6 units Documented by: Levothyroxine Sodium (Synthroid) 225 mcg PO DAILY@0600 [facility] Last Admin: 04/19/20 07:00 Dose: 225 mcg Documented by: Lisinopril (Zestril) 20 mg PO BID [facility] Last Admin: 04/18/20 22:55 Dose: 20 mg Documented by: Nutritional Formula (Ralph - Marinette Flavor) [facility] Last Admin: 04/19/20 07:32 Dose: Not Given Documented by: Ondansetron HCl (Zofran Odt) 4 mg PO Q4H PRN PRN PRN Reason: NAUSEA Oxycodone HCl (Oxyir) 5 mg PO Q6H PRN PRN PRN Reason: Pain Score 6-10/10 Last Admin: 04/17/20 20:11 Dose: 5 mg Documented by: Pantoprazole Sodium (Protonix) 40 mg PO BID [facility] Last Admin: 04/18/20 22:55 Dose: 40 mg Documented by: Pramipexole Dihydrochloride (Mirapex) 0.125 mg PO BID [facility] Last Admin: 04/18/20 22:55 Dose: 0.125 mg Documented by: Sodium Chloride () 2 - 6 ml IV UD PRN PRN Reason: Pediatric Saline Flush Medical Necessity - Tobacco Use Smoking Status: Former smoker Tobacco Use: Non-smoker Assessment/Plan All Active Problems (Last Reviewed 04/17/20 @ 18:[address] Nafisa Garza, DO) Ulcer of left foot with necrosis of muscle (Acute) Left foot infection (Acute) Left foot infection (Acute) Diabetic foot infection (Acute) Sepsis (Acute) Diabetic foot ulcer associated with type 2 diabetes mellitus (Acute) Acute renal failure (Resolved) COPD exacerbation (Resolved) Foot ulcer, left (Resolved) Hospital-acquired pneumonia (Resolved) Necrotizing fasciitis (Resolved) Non-ST elevated myocardial infarction (Resolved) Osteomyelitis of ankle or foot (Resolved) left foot neuropathic deep wound infection (Resolved) 1. Sepsis secondary to non-healing left foot diabetic infected ulceration- Podiatry and Dr. Lundy following. Plan for left BKA this afternoon. Recent MRI in March demonstrated amputation of the midfoot without osteomyelitis. Continue IV vancomycin and IV Zosyn. Infectious disease consulted. Previous cultures grew MRSA, strep, Pseudomonas, anaerobic cocci and Proteus. Repeat wound cultures pending. Blood cultures pending. Plan for Rehab Unit at discharge pending acceptance. 2. Type 2 diabetes mellitus with nephropathy and [id number]-Confx with sliding scale insulin. Continue home insulin regimen. Recent hemoglobin A1c 8.6%. 3. Chronic kidney disease stage III-slightly above baseline however no acute kidney injury. Trend BMP. 4. Hypertension-stable, continue amlodipine, enalapril regimen. 5. Hypothyroidism-continue Synthroid regimen. 6. Depression/anxiety-continue Wellbutrin, Celexa, duloxetine regimen. Patient on PRN Ativan as well. 7. GERD-continue PPI. 8. Restless leg syndrome-continue PRN Requip. 9. CECILE-continue home Pap regimen. 10. Morbid obesity-encouraged diet and lifestyle modifications. Nutrition consult. DVT prophylaxis- Lovenox sc This patient was seen by EASTON Mcgregor under the supervision of Dr. Rivera.
[2020-04-19 11:55] LABS: Bedside Glucose 219 mg/dL (70-110)
[2020-04-19] MEDS: Lactated Ringers 1,000 ML 100 ML IV (12:15)
--- NOTE | 2020-04-19 14:42 | CASEMGMT ---
Social Work SW spoke with [facility] in and they are able to accept pt on Wednesday. Pt is currently in surgery. RN updated and will notify pt that he has been accepted to [facility] when he returns from surgery. Plan: Inpatient Rehab, Wednesday ATUL Krause
[2020-04-19] MEDS: Mupirocin Ointment 22gm Tube 1 APPLIC (15:28)
--- NOTE | 2020-04-19 15:28 | OP.PCM_ITS ---
Report of Operation Date of Procedure: 04/19/20 Pre-Operative Diagnosis: 1. Nonhealing infected diabetic ulcers left foot. 2. Sepsis. 3. MRSA. 4. Diabetic neuropathy. 5. Obesity. Post-Operative Diagnosis: Same. Surgery/Procedure Performed:: Left below knee amputation. Description of Surgical Findings:: ]The patient is a 64 year old M with history of uncontrolled DMt2 with morbid obesity, left Charcot foot with prior midfoot amputation and recurring infections with MRSA, Proteus, anaerobic cocci, Strep, Pseudomonas was admitted yesterday with worsening of his left foot wound infection with sepsis. His temperature was 102 at home and 100 in the ED. His WBC was 15. He was recently here in the hospital with this same foot infection March 21 to the . At that time MRI did not show osteomyelitis. He was discharged on Augmentin and Bactrim. Upon admission to the hospital he was started on Vancomycin and Zosyn. His MRSA Wound PCR by DNA was positive. I was asked to evaluate this patient for surgical options for treatment. Discussed with the patient that amputation was the best option and to minimize risk of systemic infection that can be life threatening. Patient was informed of the risks and complications of the procedure including alternatives to surgery. These were discussed with the patient personally. Patient voices understanding and wishes to proceed. IV Fluids - 950 ml. Urine Output - 300 ml. Total tourniquet time - 68 minutes. I used AmnioFill Placental Connective Tissue Powder, 500 mg. Catalog Number - [id number]. Lot Number - [id number]. Expiration - December 30, 2024. I used Gay absorbable hemostat. Reference Number - [id number]. Lot Number - [id number]. Expiration - July 29, 2024. financial center manager: Ed Segal. Type of Anesthesia:: General Specimen's removed: 1. Left foot diabetic ulcer to Microbiology. 2. Left leg amputation to Pathology. Drains: Cortes. Estimated Blood Loss (mL): 100 ml. Fluids Replaced: 1250 ml (IV Fluids 950 ml, Urine Output 300 ml). Description of Procedure: Expiration - October 28, 2024. financial center manager: Ed Segal. Type of Anesthesia:: General Specimen's removed: Right below knee amputation (soft tissue and bone) to Pathology. Patient was taken to OR in supine position and was placed under general anesthesia. His left leg was prepped and draped in the usual fashion. A sterile stockinette was placed over the left leg. SCD was placed on the right leg for DVT prophylaxis. Perioperative antibiotics were given intravenously. A zimmer catheter was then placed. I performed the surgery with an N95 mask and proper eye protection. The anterior tibial tubercle was marked. A horizontal marking was made 12 cm distally. I then extended this marking posteriorly and created a posterior flap with a length of 10 cm. When the tibia is exposed, I will smiley it at 11 cm for the osteotomy. The fibula will be remove about 1.5 cm proximal to that. These markings were infiltrated with xylocaine with epinephrine. Prior to prepping the patient, a tourniquet was placed on the proximal thigh. The left leg was elevated and an Esmarch bandage was placed for compression as the tourniquet was elevated to 300 mmHg. I made an anterior incision and when I got to the anterior tibia, a horizontal incision was made d own to the bone. This horizontal incision was made at 12 cm from the anterior tibial tubercle. I then incised the anterior tibial muscle, the extensor hallucis longus muscle, and the extensor digitorum longus muscle. The anterior tibial vessels were seen and dissected and ligated with Number 2 Silk tie ligatures. The peroneal muscles were then incised laterally. I located the peroneal nerve and placed it on stretch. I incised the nerve and allowed it to retract proximally to minimize neuroma formation. This exposed the fibula. Using a periosteal elevator, I freed up the tibia. I then placed the gigli saw around the tibia at the level of the previous marking at 11 cm from the anterior tibial tubercle. The tibia was then incised. This made it a little easier to get exposure to the tibialis posterior muscle which was incised. The flexor digitorum longus muscle medially and the flexor hallucis longus muscle laterally were incised. This exposed the peroneal vessels laterally and the posterior tibial vessels medially. These vessels were dissected and ligated with Number 2 Silk tie ligatures. The posterior tibial nerve was dissected free and placed on stretch and incised. This allowed the proximal end to retract proximally to minimize neuroma formation on the stump. I dissected the fibula with a periosteal elevator superiorly about 1.5 cm proximal to the tibial osteotomy. I used an oscillating saw to incise the fibula. A rasp was used to smooth out the bony edge. I then extended the skin incision posteriorly and created the posterior flap. I the gastrocnemius muscle from the soleus muscle. The remaining muscle fibers from the soleus muscle were incised as the distal leg was removed from the field. The amputated leg will be sent to Pathology for analysis. From the amputated part, I obtained deep tissue culture from the foot ulcerations to help with antibiotic management. In order to close the posterior flap, the soleus muscle was incised thus exposing the gastrocnemius muscle. This thinned the flap enough that I was able to advance the flap anteriorly to cover the bone. A size 15 Cortes drain was placed through a separate stab incision laterally and secured to the skin with 3-0 Nylon suture. The drain was used to drain the deeper wound over the bone and brought out into the subcutaneous tissue. Prior to closure of the stump, I beveled the tibia anteriorly with an oscillating saw to smooth out the bone anteriorly. A rasp was used to smooth out the edges of the bone. I then released the tourniquet after 68 minutes. Hemostasis was obtained with electrocautery. Some bleeding was seen posteriorly. There were some perforators seen that were controlled with Number 2 Silk tie ligatures and 4-0 Vicryl suture ligatures. Nothing else needed to be ligated at this time. The wound was irrigated with Irrisept 0.05% chlorhexidine solution followed by saline irrigation. The flaps were viable with no evidence of vascular com promise. I then placed AmnioFill placental connective tissue powder into the wound at the level of the bone to help stimulate the healing process. I used 500 mg. I was able to cover the tibia with the soleus muscle to the periosteum anteriorly with 2-0 Vicryl figure of eight interrupted sutures. The fascia of the gastrocnemius muscle was then approximated to the fascia and periosteum anteriorly with 2-0 Vicryl figure of eight interrupted sutures. I then sprayed Gay absorbable hemostat into the subcutaneous wound to minimize seroma formation. The deep dermis and subcutaneous tissue was approximated with 2-0 Vicryl interrupted sutures. The skin was approximated with 3-0 Nylon vertical mattress interrupted sutures and simple interrupted sutures. Antibiotic ointment was applied to the suture line followed by Kerlix gauze and ABD pads followed by compression MAURILIO wrap. Patient tolerated the procedure well. He was sent to PACU in satisfactory condition. Patient will be sent upstairs for continued postop care. The drain will be removed in 2-3 weeks. The sutures will be removed in 3-[address] weeks[address] At which time will place a stump cctv technician in anticipation for the prosthesis. Grafts/Implants Used: AmnioFill Placental Connective Tissue Powder - Complications None. - Admit VTE Documentation VTE Present on Admission: No VTE Mechan Device Prophylaxis: SCD's VTE Pharm Prophylaxis ordered?: Yes Surgery Charges CPT - 58976 ICD-10 - L97.523, E11.69, A41.9, A49.02, E11.40, E66.01, E11.9
[2020-04-19 16:20] LABS: Bedside Glucose 190 mg/dL (70-110)
[2020-04-19] MEDS: Insulin Lispro 100 UNIT/ML INSULN.PEN 15 UNIT SC (18:33)
[2020-04-19 18:45] LABS: Bedside Glucose 226 mg/dL (70-110)
[2020-04-19] MEDS: oxyCODONE 5 MG Tablet PO ×2 (18:55→19:20)
[2020-04-19] MEDS: DULoxetine Hcl 60 MG Capsule PO (19:20)
[2020-04-19] MEDS: amLODIPine 2.5 MG Tablet PO (19:21)
[2020-04-19] MEDS: HYDROmorphone 1 MG/ML Syringe IV ×2 (20:05→23:08)
[2020-04-19] MEDS: Lisinopril 20 MG Tablet PO (22:32)
[2020-04-19] MEDS: Acetaminophen 325 MG Tablet 650 MG PO (22:32)
[2020-04-19] MEDS: buPROPion (SR) 150 MG Tablet.SA PO (22:32)
[2020-04-19] MEDS: Pantoprazole Sodium 40 MG Tablet PO (22:32)
[2020-04-19] MEDS: Pramipexole Di-HCl 0.125 MG Tablet PO (22:32)
[2020-04-19 22:46] LABS: Bedside Glucose 181 mg/dL (70-110)
[2020-04-20] VITALS (7 sets, daily range): BP systolic 124–161; BP diastolic 58–83; PULSE 60–100; RESP 18–20; TEMP 37–37.4; O2SAT 91–94; BMI 54.6
[2020-04-20] MEDS: oxyCODONE 5 MG Tablet 10 MG PO ×3 (00:30→21:41)
[2020-04-20] MEDS: HYDROmorphone 1 MG/ML Syringe IV ×5 (02:32→19:22)
[2020-04-20] MEDS: Levothyroxine 75 MCG Tablet 225 MCG PO (06:36)
[2020-04-20 06:37] LABS: Hematocrit 41.7 % (40-54); Hemoglobin 12.4 g/dL (13.0-16.5); Mean Corp Hgb Conc 29.7 g/dL (32-36); Mean Corpuscular Hgb 26.6 pg (27.0-32.0); Mean Corpuscular Volume 89.3 fL (80-94); Mean Platelet Vol. 9.3 fl (6.2-12.0); Platelet Count 535 K/mm3 (150-450); RBC Distribution Width CV 15.9 % (11.6-14.6); RBC Distribution Width SD 52.4 fl (35.1-43.9); Red Blood Count 4.67 M/mm3 (4.6-6.2); White Blood Count 14.2 K/mm3 (4.4-11.0)
[2020-04-20 07:20] LABS: Anion Gap 7 (5-15); BUN 19 mg/dL (7-18); BUN/Creat Ratio 9.9 RATIO (10-20); Calcium,Total 8.9 mg/dL (8.5-10.1); Chloride 98 mmol/L (98-107); Creatinine, Serum 1.91 mg/dL (0.70-1.30); EST Glomerular Filtration Rate 38 mL/min (>60); Est Glom Filt Rate - Afr Amer 46 mL/min (>60); Glucose 189 mg/dL (74-106); Potassium 4.9 mmol/L (3.5-5.1); Prealbumin 9.1 mg/dL (20.0-40.0); Sodium Level 131 mmol/L (136-145)
[2020-04-20 07:31] LABS: Bedside Glucose 196 mg/dL (70-110)
[2020-04-20] MEDS: Enoxaparin 40 MG/0.4 ML Syringe SC (08:58)
[2020-04-20] MEDS: amLODIPine 2.5 MG Tablet PO (08:59)
[2020-04-20] MEDS: Lisinopril 20 MG Tablet PO ×2 (08:59→21:43)
[2020-04-20] MEDS: Pramipexole Di-HCl 0.125 MG Tablet PO ×2 (08:59→21:42)
[2020-04-20] MEDS: Pantoprazole Sodium 40 MG Tablet PO ×2 (08:59→21:42)
[2020-04-20] MEDS: Insulin Lispro 100 UNIT/ML INSULN.PEN SC ×3 (08:59→21:47)
[2020-04-20] MEDS: DULoxetine Hcl 60 MG Capsule PO (08:59)
[2020-04-20] MEDS: Insulin Lispro 100 UNIT/ML INSULN.PEN 15 UNIT SC ×2 (09:00→16:55)
[2020-04-20] MEDS: buPROPion (SR) 150 MG Tablet.SA PO ×2 (09:02→21:42)
[2020-04-20 12:15] LABS: Bedside Glucose 128 mg/dL (70-110)
--- NOTE | 2020-04-20 12:18 | PN_ITS ---
Patient Problems: Active and Suspected Problems (Last Reviewed 04/17/20 @ 18:[address] Nafisa Garza, DO) Ulcer of left foot with necrosis of muscle (Acute) Diabetic foot infection (Acute) Subjective: Patient seen and examined. Reports he slept well overnight. Reports significant stump pain following left below the knee amputation. Agreeable to rehab, plan on discharge to rehab tomorrow. - Physical Exam Vitals/I&O's: Vital Signs Temp Pulse Resp BP Pulse Ox 99.4 F H 96 20 H 154/69 H 92 04/20/20 10:19 04/20/20 10:19 04/20/20 10:19 04/20/20 10:19 04/20/20 10:19 Oxygen Flow Rate (L/min) 3 Oxygen Delivery Method CPAP Weight: 389 lb 15.999 oz Body Mass Index (BMI) 54.6 Finger Stick Blood Glucose 190 Intake and Output for Last 24 Hours 04/18/20 04/19/20 04/20/20 23:59 23:59 23:59 Intake Total 5052.75 / 5052.75 4286.50 / 4286.50 1325 / 1325 Output Total 1000 / 1000 2857 / 2857 2600 / 2600 Balance 4052.75 / 4052.75 1429.50 / 1429.50 -1275 / -1275 General: Alert, Oriented x3, Cooperative HEENT: Atraumatic, PERRLA, EOMI, Normocephalic Neck: Supple, No JVD, Negative Carotid Bruits Lungs: Clear to auscultation, Diminished Cardiovascular: Regular rate, No murmurs Abdomen: Bowel Sounds Present, Soft, Non Tender, Non-Distended, Obese Extremities: No clubbing, No cyanosis, No edema Skin: No rashes, No breakdown, - - Left BKA postop dressing intact, drain with serosanguineous drainage Musculoskeletal: No Tenderness to Palpation of Joints or Extremities Neurological: Cranial nerves II-XII grossly intact, Neuro grossly intact Psych/Mental Status: Flat Affect Microbiology Past 72 Hours 04/19/20 Unknown Tissue - Left Foot Gram Stain - Final 04/17/20 05:08 Blood Culture (Wb) - Anticubital Right Blood Culture - Preliminary No growth in 48 hours. 04/17/20 16:17 Blood Culture (Wb) - Anticubital Right Blood Culture - Preliminary No growth in 48 hours. 04/17/20 16:06 Wound - Ankle Gram Stain - Final 04/17/20 16:06 Wound - Ankle Wound Culture - Preliminary Escherichia coli Proteus penneri Streptococcus group B Gram positive steph 04/17/20 16:06 Wound - Left Foot Gram Stain - Final 04/17/20 16:06 Wound - Left Foot Wound Culture - Preliminary Escherichia coli Proteus penneri Gram positive steph Streptococcus group B Laboratory Results 04/19/20 16:13: POC Glucose 190 H 04/19/20 18:32: POC Glucose 226 H 04/19/20 22:26: POC Glucose 181 H 04/20/20 06:15: WBC 14.2 H, RBC 4.67, Hgb 12.4 L, Hct 41.7, MCV 89.3, MCH 26.6 L , MCHC 29.7 L, RDW Std Deviation 52.4 H, RDW Coeff of Jose 15.9 H, Plt Count 535 H, MPV 9.3 04/20/20 06:15: Sodium 131 L, Potassium 4.9, Chloride 98, Carbon Dioxide 26.0, Anion Gap 7, BUN 19 H, Creatinine 1.91 H, Estim Creat Clear Calc 41.40, Est GFR (MDRD) Af Amer 46 L, Est GFR (MDRD) Non-Af 38 L, BUN/Creatinine Ratio 9.9 L, Glucose 189 H, Calcium 8.9, Prealbumin 9.1 L 04/20/20 07:28: POC Glucose 196 H 04/20/20 12:06: POC Glucose 128 H Current Medications Acetaminophen (Tylenol) 650 mg PO Q6H PRN PRN PRN Reason: Pain 1-10 or Fever Last Admin: 04/19/20 22:32 Dose: 650 mg Documented by: Amlodipine Besylate (Norvasc) 2.5 mg PO DAILY [facility] Last Admin: 04/20/20 08:59 Dose: 2.5 mg Documented by: Bupropion HCl (Wellbutrin Sr (150mg Tablets)) 150 mg PO BID [facility] Last Admin: 04/20/20 09:02 Dose: 150 mg Documented by: Dextrose (D50w Syringe) 0 gm IV X1 PRN; Protocol PRN Reason: Hypoglycemia Duloxetine HCl (Cymbalta) 60 mg PO DAILY [facility] Last Admin: 04/20/20 08:59 Dose: 60 mg Documented by: Enoxaparin Sodium (Lovenox) 40 mg SC DAILY [facility] Last Admin: 04/20/20 08:58 Dose: 40 mg Documented by: Glucagon () 1 mg IM .X1 PRN PRN Reason: Hypoglycemia Hydromorphone HCl (Dilaudid Inj) 1 mg IV Q3H PRN PRN PRN Reason: Pain Score 6-10/10 Last Admin: 04/20/20 10:11 Dose: 1 mg Documented by: Piperacillin Sod/Tazobactam (Sod 3.375 gm/ Sodium Chloride) 50 mls @ 12.5 mls/hr IV Q8 [facility] Last Admin: 04/20/20 06:21 Dose: Not Given Documented by: Vancomycin IV Pharmacy to Dose (1 ea/ Sodium Chloride) 500 mls @ 250 mls/hr IV PRN PRN; Protocol PRN Reason: Rx to Dose Sodium Chloride () 250 mls @ 15 mls/hr IV .[id number] PRN PRN Reason: Saline Flush Last Infusion: 04/19/20 11:41 Dose: 0 mls/hr Documented by: Sodium Chloride () 250 mls @ 15 mls/hr IV .[id number] PRN PRN Reason: Additional IVPB Infusion Vancomycin HCl 1,250 mg/ (Sodium Chloride) 275 mls @ 167 mls/hr IV Q12H [facility] Last Admin: 04/20/20 10:11 Dose: 100 mls/hr Documented by: Insulin Glargine (Lantus (Bkc)) 30 units SC BID [facility] Last Admin: 04/20/20 09:01 Dose: 30 u Documented by: Insulin Human Lispro (Humalog Kwikpen (Bkc)) 0 unit SC ACHS [facility]; Protocol Last Admin: 04/20/20 08:59 Dose: 3 units Documented by: Insulin Human Lispro (Humalog Kwikpen (Bkc)) 15 unit SC TIDAC [facility] Last Admin: 04/20/20 09:00 Dose: 15 units Documented by: Levothyroxine Sodium (Synthroid) 225 mcg PO DAILY@0600 [facility] Last Admin: 04/20/20 06:36 Dose: 225 mcg Documented by: Lisinopril (Zestril) 20 mg PO BID [facility] Last Admin: 04/20/20 08:59 Dose: 20 mg Documented by: Nutritional Formula ([facility]alhp - [place] Flavor) [facility] Last Admin: 04/20/20 09:01 Dose: 1 packet Documented by: Ondansetron HCl (Zofran Odt) 4 mg PO Q4H PRN PRN PRN Reason: NAUSEA Oxycodone HCl (Oxyir) 10 mg PO Q4H PRN PRN PRN Reason: Pain Score 6-10/10 Last Admin: 04/20/20 00:30 Dose: 10 mg Documented by: Pantoprazole Sodium (Protonix) 40 mg PO BID [facility] Last Admin: 04/20/20 08:59 Dose: 40 mg Documented by: Pramipexole Dihydrochloride (Mirapex) 0.125 mg PO BID [facility] Last Admin: 04/20/20 08:59 Dose: 0.125 mg Documented by: Medical Necessity - Tobacco Use Smoking Status: Former smoker Tobacco Use: Non-smoker Assessment/Plan All Active Problems (Last Reviewed 04/17/20 @ 18:[address] Nafisa Garza, DO) Ulcer of left foot with necrosis of muscle (Acute) Left foot infection (Acute) Left foot infection (Acute) Diabetic foot infection (Acute) Sepsis (Acute) Diabetic foot ulcer associated with type 2 diabetes mellitus (Acute) Acute renal failure (Resolved) COPD exacerbation (Resolved) Foot ulcer, left (Resolved) Hospital-acquired pneumonia (Resolved) Necrotizing fasciitis (Resolved) Non-ST elevated myocardial infarction (Resolved) Osteomyelitis of ankle or foot (Resolved) left foot neuropathic deep wound infection (Resolved) 1. Sepsis secondary to non-healing left foot diabetic infected ulceration-S/P left BKA 04/19/[address] Lundy. Recent MRI in March demonstrated amputation of the midfoot without osteomyelitis. DC IV vancomycin and IV Zosyn. Transition to cefdinir. Infectious disease consulted. Previous cultures grew MRSA, strep, Pseudomonas, anaerobic cocci and Proteus. Blood cultures show no growth thus far. Plan for Rehab Unit at discharge pending acceptance. PRN pain regimen. PT/OT. 2. Type 2 diabetes mellitus with nephropathy and nabuovhpas-Vsws-Lvopw with sliding scale insulin. Continue Lantus 30 units twice daily and scheduled Humalog 15 units 3 times daily before meals as well as sliding scale insulin. Recent hemoglobin A1c 8.6%. 3. Chronic kidney disease stage III-slightly above baseline however no acute kidney injury. Trend BMP. 4. Hypertension-stable, continue amlodipine, enalapril regimen. 5. Hypothyroidism-continue Synthroid regimen. 6. Depression/anxiety-continue Wellbutrin, Celexa, duloxetine regimen. Patient on PRN Ativan as well. 7. GERD-continue PPI. 8. Restless leg syndrome-continue PRN Requip. 9. CECILE-continue home Pap regimen. 10. Morbid obesity-encouraged diet and lifestyle modifications. Nutrition consult. DVT prophylaxis- Lovenox sc Discharge planning: Plan for discharge to rehab on Wednesday. This patient was seen by EASTON Mcgregor under the supervision of Dr. Rivera.
[2020-04-20] MEDS: Acetaminophen 500 MG Tablet 1000 MG PO ×2 (13:28→21:43)
--- NOTE | 2020-04-20 14:48 | NURSING ---
Robi--sister, per pt's desire was updated on patient.
--- NOTE | 2020-04-20 15:28 | PCM.PN.SRG ---
Patient Problems: Active and Suspected Problems (Last Reviewed 04/22/20 @ 19:[address] Juhi Polk DO) Hyponatremia (Acute) Subjective: Postop #1 Patient has incisional pain. - Physical Exam Vitals/I&O's: Vital Signs Temp Pulse Resp BP Pulse Ox 98.8 F 95 18 124/69 H 93 04/20/20 14:31 04/20/20 14:31 04/20/20 14:31 04/20/20 14:31 04/20/20 14:31 Oxygen Flow Rate (L/min) 3 Oxygen Delivery Method CPAP Weight: 389 lb 15.999 oz Body Mass Index (BMI) 54.6 Finger Stick Blood Glucose 190 Intake and Output for Last 24 Hours 04/18/20 04/19/20 04/20/20 23:59 23:59 23:59 Intake Total 5052.75 / 5052.75 4286.50 / 4286.50 1600 / 1600 Output Total 1000 / 1000 2857 / 2857 3800 / 3800 Balance 4052.75 / 4052.75 1429.50 / 1429.50 -2200 / -2200 Drainage 57 ml yesterday. General: Alert, Oriented x3 HEENT: PERRLA, EOMI Oral: Moist Mucosa Neck: Supple Abdomen: Soft, Non-Distended Skin: Incision - BKA stump incision is dry and intact. Mild swelling present. No clinical evidence of hematoma. Neurological: Cranial nerves II-XII grossly intact Psych/Mental Status: Normal Affect, Appropriate Microbiology Past 72 Hours 04/17/20 16:06 Wound - Ankle Gram Stain - Final 04/17/20 16:06 Wound - Ankle Wound Culture - Preliminary Escherichia coli Proteus penneri Streptococcus group B Corynebacterium striatum 04/17/20 16:06 Wound - Left Foot Gram Stain - Final 04/17/20 16:06 Wound - Left Foot Wound Culture - Preliminary Escherichia coli Proteus penneri Streptococcus group B Corynebacterium striatum 04/19/20 Unknown Tissue - Left Foot Gram Stain - Final 04/19/20 Unknown Tissue - Left Foot Wound Culture - Preliminary Gram positive organism 04/17/20 05:08 Blood Culture (Wb) - Anticubital Right Blood Culture - Preliminary No growth in 48 hours. 04/17/20 16:17 Blood Culture (Wb) - Anticubital Right Blood Culture - Preliminary No growth in 48 hours. Laboratory Results 04/19/20 16:13: POC Glucose 190 H 04/19/20 18:32: POC Glucose 226 H 04/19/20 22:26: POC Glucose 181 H 04/20/20 06:15: WBC 14.2 H, RBC 4.67, Hgb 12.4 L, Hct 41.7, MCV 89.3, MCH 26.6 L, MCHC 29.7 L, RDW Std Deviation 52.4 H, RDW Coeff of Jose 15.9 H, Plt Count 535 H, MPV 9.3 04/20/20 06:15: Sodium 131 L, Potassium 4.9, Chloride 98, Carbon Dioxide 26.0, Anion Gap 7, BUN 19 H, Creatinine 1.91 H, Estim Creat Clear Calc 41.40, Est GFR (MDRD) Af Amer 46 L, Est GFR (MDRD) Non-Af 38 L, BUN/Creatinine Ratio 9.9 L, Glucose 189 H, Calcium 8.9, Prealbumin 9.1 L 04/20/20 07:28: POC Glucose 196 H 04/20/20 12:06: POC Glucose 128 H Current Medications Acetaminophen (Tylenol) 1,000 mg PO Q8 [facility] Last Admin: 04/20/20 13:28 Dose: 1,000 mg Documented by: Amlodipine Besylate (Norvasc) 2.5 mg PO DAILY [facility] Last Admin: 04/20/20 08:59 Dose: 2.5 mg Documented by: Bupropion HCl (Wellbutrin Sr (150mg Tablets)) 150 mg PO BID [facility] Last Admin: 04/20/20 09:02 Dose: 150 mg Documented by: Cefdinir (Omnicef [Equiv]) 300 mg PO Q12 [facility] Dextrose (D50w Syringe) 0 gm IV X1 PRN; Protocol PRN Reason: Hypoglycemia Duloxetine HCl (Cymbalta) 60 mg PO DAILY [facility] Last Admin: 04/20/20 08:59 Dose: 60 mg Documented by: Enoxaparin Sodium (Lovenox) 40 mg SC DAILY [facility] Last Admin: 04/20/20 08:58 Dose: 40 mg Documented by: Glucagon () 1 mg IM .X1 PRN PRN Reason: Hypoglycemia Hydromorphone HCl (Dilaudid Inj) 1 mg IV Q3H PRN PRN PRN Reason: Pain Score 6-10/10 Last Admin: 04/20/20 10:11 Dose: 1 mg Documented by: Sodium Chloride () 250 mls @ 15 mls/hr IV .[id number] PRN PRN Reason: Saline Flush Last Infusion: 04/19/20 11:41 Dose: 0 mls/hr Documented by: Sodium Chloride () 250 mls @ 15 mls/hr IV .[id number] PRN PRN Reason: Additional IVPB Infusion Insulin Glargine (Lantus (Bkc)) 30 units SC BID [facility] Last Admin: 04/20/20 09:01 Dose: 30 u Documented by: Insulin Human Lispro (Humalog Kwikpen (Bk)) 0 unit SC ACHS [facility]; Protocol Last Admin: 04/20/20 12:20 Dose: Not Given Documented by: Insulin Human Lispro (Humalog Kwikpen ([facility])) 15 unit SC TIDAC [facility] Last Admin: 04/20/20 13:27 Dose: Not Given Documented by: Levothyroxine Sodium (Synthroid) 225 mcg PO DAILY@0600 [facility] Last Admin: 04/20/20 06:36 Dose: 225 mcg Documented by: Lisinopril (Zestril) 20 mg PO BID [facility] Last Admin: 04/20/20 08:59 Dose: 20 mg Documented by: Nutritional Formula ([place] - [place] Flavor) [facility] Last Admin: 04/20/20 09:01 Dose: 1 packet Documented by: Ondansetron HCl (Zofran Odt) 4 mg PO Q4H PRN PRN PRN Reason: NAUSEA Oxycodone HCl (Oxyir) 10 mg PO Q4H PRN PRN PRN Reason: Pain Score 6-10/10 Last Admin: 04/20/20 13:32 Dose: 10 mg Documented by: Pantoprazole Sodium (Protonix) 40 mg PO BID [facility] Last Admin: 04/20/20 08:59 Dose: 40 mg Documented by: Pramipexole Dihydrochloride (Mirapex) 0.125 mg PO BID [facility] Last Admin: 04/20/20 08:59 Dose: 0.125 mg Documented by: Medical Necessity - Tobacco Use Smoking Status: Former smoker Tobacco Use: Non-smoker Assessment/Plan All Active Problems (Last Reviewed 04/22/20 @ 19:[address] Juhi Polk, DO) Hyponatremia (Acute) MRSA (methicillin resistant Staphylococcus aureus) infection (Acute) Sepsis (Acute) Diabetic foot ulcer associated with type 2 diabetes mellitus (Acute) Acute renal failure (Resolved) COPD exacerbation (Resolved) Foot ulcer, left (Resolved) Hospital-acquired pneumonia (Resolved) Necrotizing fasciitis (Resolved) Non-ST elevated myocardial infarction (Resolved) Osteomyelitis of ankle or foot (Resolved) left foot neuropathic deep wound infection (Resolved) 1. Nonhealing infected diabetic ulcers left foot. 2. Sepsis 3. MRSA. 4. Diabetic neuropathy 5. Obesity 6. s/p left below knee amputation. Incision is dry and intact. Mild swelling present. No clinical evidence of hematoma. Antibiotics changed to Cefdinir. Operative cultures show Gram positive organism. Preoperative cultures showed E. coli, Proteus penneri, Streptococcus group B, and Corynebacterium striatum. Anticipate increased metabolic needs from the infection. Prealbumin was 9.1. Encourage nutritional supplementation with protein to help the healing process. Rehab evaluation in process.
[2020-04-20 16:51] LABS: Bedside Glucose 180 mg/dL (70-110)
[2020-04-20] MEDS: Cefdinir 300 MG Capsule PO (21:42)
[2020-04-20 22:10] LABS: Bedside Glucose 181 mg/dL (70-110)
[2020-04-20] MEDS: HYDROmorphone 2 MG TABLET 1 MG PO (23:07)
[2020-04-21] MEDS: oxyCODONE 5 MG Tablet 10 MG PO ×3 (02:14→11:12)
[2020-04-21 03:08] VITALS: BP 132/71; PULSE 88; RESP 18; TEMP 36.7; O2SAT 97
[2020-04-21] MEDS: HYDROmorphone 2 MG TABLET 1 MG PO ×2 (03:14→15:59)
[2020-04-21 06:01] LABS: Hematocrit 38.8 % (40-54); Hemoglobin 11.9 g/dL (13.0-16.5); Mean Corp Hgb Conc 30.7 g/dL (32-36); Mean Corpuscular Hgb 26.6 pg (27.0-32.0); Mean Corpuscular Volume 86.6 fL (80-94); Mean Platelet Vol. 9.3 fl (6.2-12.0); Platelet Count 539 K/mm3 (150-450); RBC Distribution Width SD 49.8 fl (35.1-43.9); Red Blood Count 4.48 M/mm3 (4.6-6.2)
[2020-04-21] MEDS: Levothyroxine 75 MCG Tablet 225 MCG PO (06:07)
[2020-04-21] MEDS: Acetaminophen 500 MG Tablet 1000 MG PO ×2 (06:08→14:12)
[2020-04-21 07:08] LABS: Anion Gap 8 (5-15); BUN 20 mg/dL (7-18); BUN/Creat Ratio 11.4 RATIO (10-20); Calcium,Total 9.2 mg/dL (8.5-10.1); Chloride 98 mmol/L (98-107); Creatinine, Serum 1.76 mg/dL (0.70-1.30); EST Glomerular Filtration Rate 42 mL/min (>60); Est Glom Filt Rate - Afr Amer 51 mL/min (>60); Estimated Creatinine Clearance 44.93 ml/min; Glucose 217 mg/dL (74-106); Potassium 4.9 mmol/L (3.5-5.1); Sodium Level 131 mmol/L (136-145)
[2020-04-21] MEDS: Insulin Lispro 100 UNIT/ML INSULN.PEN 15 UNIT SC (07:47)
[2020-04-21] MEDS: Insulin Lispro 100 UNIT/ML INSULN.PEN SC ×2 (07:47→15:44)
[2020-04-21 07:56] LABS: Bedside Glucose 222 mg/dL (70-110)
--- NOTE | 2020-04-21 08:30 | PCA ---
patient calls and wants up to bsc to move his bowels. While getting him up he dont want any assistance to transfer to the toilet he wants to do it himself with me just standing by. then he preceded to pivot to bsc himself. He also doesn't want us to stay in the room with him while he uses the toilet so we left the room and made sure call light was close by due to patient request. he then when he was done preceded to get into the bed by himself and clean himself up without assistance
--- NOTE | 2020-04-21 09:31 | DCINST_ITS ---
- Discharge Diagnoses Current Active Problems: Current Active and Chronic Problems (Last Reviewed 04/17/20 @ 18:[address] Nafisa Garza DO) MRSA (methicillin resistant Staphylococcus aureus) infection (Acute) Ulcer of left foot with necrosis of muscle (Acute) Diabetic foot infection (Acute) You will use the following diet at home:: Calorie/Carbohydrate Controlled (specify 1200, 1400, etc) Discharge Activity: Return to Normal Activity Call your doctor if you observe: Fever of 101 or Higher, Shortness of breath, Dizziness, Fainting spells, Chest pain Additional Instructions: Cortes drain to bulb suction, nursing to empty and record output every 4 hours. Allergies/Adverse Reactions: Allergies No Known Allergies Allergy (Verified 04/17/20 15:13) Medications to take at Discharge Ropinirole HCl [Requip] 0.25 mg PO BID 08/17/16 enalapril maleate 20 mg tablet 20 mg PO BID 02/14/18 fluticasone propionate 50 mcg/actuation nasal spray,suspension 2 spray INTRANASAL DAILY PRN PRN 02/14/18 levothyroxine 75 mcg tablet 225 mcg PO DAILY@0600 #90 tab 03/02/18 Amlodipine [Norvasc] 2.5 mg PO DAILY 03/21/20 Duloxetine HCl 60 mg PO DAILY 03/21/20 Omeprazole 40 mg PO BID 03/21/20 buPROPion SR [Wellbutrin SR (150mg tablets)] 150 mg PO BID 03/21/20 Acetaminophen [Tylenol] 1,000 mg PO Q8 tab 04/21/20 Cefdinir [Omnicef [equiv]] 300 mg PO Q12 2 Days cap 04/21/20 Insulin Glargine [Lantus SoloStar Pen] 30 units SUBCUT BID pen 04/21/20 Insulin Lispro [Humalog KwikPen] 15 unit SUBCUT TIDAC insuln.pen 04/21/20 Insulin Lispro [Humalog KwikPen] See Protocol SUBCUT ACHS insuln.pen 04/21/20 Oxycodone [Oxyir] 10 mg PO Q4H PRN PRN 7 Days tab 04/21/20 Primary Care Physician: Maico Jones MD [Primary Care Provider] - Please follow up with your Primary Care Physician in: 1 Week Test Results: Test results from this visit will be discussed in further detail at your follow- up appointment, if applicable. Please Follow Up With: Mando Lundy MD When: 1 Week Proposed Discharge Date: 04/21/20
[2020-04-21 09:33] VITALS: BP 110/59; PULSE 89; RESP 18; TEMP 36.9; O2SAT 95
--- NOTE | 2020-04-21 09:35 | PCM.DC.SUM ---
Discharge Date and Diagnosis Date of Admission: 04/17/20 Date of Discharge: 04/21/20 - Primary Discharge Diagnosis Acute Problems: Active Problems (Last Reviewed 04/17/20 @ 18:[address] Nafisa Garza, ) 1. Sepsis secondary to non-healing left foot diabetic infected ulceration-S/P left BKA 04/19/[address] Lundy. 2. 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 Chronic kidney disease stage III 4. Hypertension 5. Hypothyroidism 6. Depression/anxiety 7. GERD 8. Restless leg syndrome 9. CECILE 10. Morbid obesity - Secondary Discharge Diagnosis Chronic Problems: Chronic Problems (Last Reviewed 04/17/20 @ 18:[address] Nafisa Garza DO) Alcoholism in recovery (Chronic) COPD (chronic obstructive pulmonary disease) (Chronic) Diabetic neuropathy (Chronic) CAD (coronary artery disease) (Chronic) Diabetes mellitus (Chronic) Hypothyroidism (Chronic) Reports has been more tired and lacking interest in doing things at this time. He feels he is gaining more weight and this he does not want. Rechech thyroid levels. CECILE treated with BiPAP (Chronic) PATIENT HAS OWN MACHINE. He feels he is doing well HTN (hypertension) (Chronic) Is on an paola inhibitor and tolerating well. BP 124/85 Morbid obesity with BMI of 40.0-44.9, adult (Chronic) Uncontrolled diabetes mellitus (Chronic) BG readings in the low 200 range. Seems to need more back ground insulin. He would probably benefit from use of U-500. He reports he has significant supply of insulin at this time and does want to use it up. Enc to monitor BG carefully Non-compliance (Chronic) Hyperlipidemia (Chronic) No recent labs available at time of visit. He reports he is not willing to use a statin. Will obtain labs from [facility] provider. No medical records available at time of visit. Venous stasis dermatitis (Chronic) Diabetic neuropathy associated with type 2 diabetes mellitus (Chronic) Charcot's joint of foot due to diabetes (Chronic) Hospital Course and Treatment Imaging Results: Diagnostic Data Foot X-Ray 04/17/20 16:46 IMPRESSION: Stable postsurgical changes from prior midfoot amputation. No definite radiographic findings of osteomyelitis. Stable soft tissue swelling. No acute fracture or dislocation. Electronically Signed: Gordy Rosa, at 17:02 EDT Tel , Service support , Dr. Soto- Podiatry Dr. Lundy- Plastic surgery Operations: - - L BKA Procedures: None Summary of Care Provided: The patient is a 64 year old M admitted 04/17/2020 due to nonhealing diabetic foot wound. 1. Sepsis secondary to non-healing left foot diabetic infected ulceration-S/P left BKA 04/19/[address] Lundy. Recent MRI in March demonstrated amputation of the midfoot without osteomyelitis. DC IV vancomycin and IV Zosyn. Transition to cefdinir, continue for 2 days at discharge to rehab. Infectious disease consulted during admission. Previous cultures grew MRSA, strep, Pseudomonas, anaerobic cocci and Proteus. Blood cultures show no growth. Cortes drain in place to bulb suction. Nursing to empty and record output every 4 hours. Discharge to rehab unit in stable condition. 2. Type 2 diabetes mellitus with nephropathy and iquinvjlht-[id number]-Yspcv with sliding scale insulin. Continue Lantus 30 units twice daily and scheduled Humalog 15 units 3 times daily before meals as well as sliding scale insulin. Recent hemoglobin A1c 8.6%. Patient previously on Lantus 100 units twice daily and Humalog 60 units 3 times daily. Patient's discharge insulin regimen may need titrated up however his glucose has been fairly controlled during admission. 3. Chronic kidney disease stage III-stable. 4. Hypertension-stable, continue amlodipine, enalapril regimen. 5. Hypothyroidism-continue Synthroid regimen. 6. Depression/anxiety-continue Wellbutrin, duloxetine regimen. 7. GERD-continue PPI. 8. Restless leg syndrome-continue PRN Requip. 9. CECILE-continue home Pap regimen. 10. Morbid obesity-encouraged diet and lifestyle modifications. Dietitian consult. General: Alert, Oriented x3, Cooperative HEENT: Atraumatic, PERRLA, EOMI, Normocephalic Neck: Supple, No JVD, Negative Carotid Bruits Lungs: Clear to auscultation, Diminished Cardiovascular: Regular rate, No murmurs Abdomen: Bowel Sounds Present, Soft, Non Tender, Non-Distended, Obese Extremities: No clubbing, No cyanosis, No edema Skin: No rashes, No breakdown, - - Left BKA postop dressing intact, drain with serosanguineous drainage Musculoskeletal: No Tenderness to Palpation of Joints or Extremities Neurological: Cranial nerves II-XII grossly intact, Neuro grossly intact Psych/Mental Status: Flat Affect Patient seen and examined prior to discharge. Physical assessment as noted above. Patient is stable for discharge with follow up recommendations as noted above. This patient was seen by EASTON Mcgregor under the supervision of Dr. Rivera. - Physical Exam Vitals/I&O's: Vital Signs Temp Pulse Resp BP Pulse Ox 98.0 F 88 18 132/71 H 97 04/21/20 03:08 04/21/20 03:08 04/21/20 03:08 04/21/20 03:08 04/21/20 03:08 Oxygen Flow Rate (L/min) 3 Oxygen Delivery Method CPAP Weight: 389 lb 15.999 oz Body Mass Index (BMI) 54.6 Finger Stick Blood Glucose 190 Intake and Output for Last 24 Hours 04/19/20 04/20/20 04/21/20 23:59 23:59 23:59 Intake Total 4286.50 / 4286.50 1600 / 1900 700 / 700 Output Total 2857 / 2857 5325 / 6195 3315 / 3315 Balance 1429.50 / 1429.50 -3725 / -4295 -2615 / -2615 Microbiology Past 72 Hours 04/17/20 16:06 Wound - Ankle Gram Stain - Final 04/17/20 16:06 Wound - Ankle Wound Culture - Final Escherichia coli Proteus penneri Streptococcus agalactiae (B) Corynebacterium striatum 04/17/20 16:06 Wound - Left Foot Gram Stain - Final 04/17/20 16:06 Wound - Left Foot Wound Culture - Final Escherichia coli Proteus penneri Streptococcus agalactiae (B) Corynebacterium striatum 04/19/20 Unknown Tissue - Left Foot Gram Stain - Final 04/19/20 Unknown Tissue - Left Foot Wound Culture - Preliminary Gram positive organism 04/17/20 05:08 Blood Culture (Wb) - Anticubital Right Blood Culture - Preliminary No growth in 48 hours. 04/17/20 16:17 Blood Culture (Wb) - Anticubital Right Blood Culture - Preliminary No growth in 48 hours. Laboratory Results 04/20/20 12:06: POC Glucose 128 H 04/20/20 16:12: POC Glucose 180 H 04/20/20 21:46: POC Glucose 181 H 04/21/20 05:23: WBC 12.0 H, RBC 4.48 L, Hgb 11.9 L, Hct 38.8 L, MCV 86.6, MCH 26.6 L, MCHC 30.7 L, RDW Std Deviation 49.8 H, RDW Coeff of Jose 16.0 H, Plt Count 539 H, MPV 9.3 04/21/20 05:23: Sodium 131 L, Potassium 4.9, Chloride 98, Carbon Dioxide 25.0, Anion Gap 8, BUN 20 H, Creatinine 1.76 H, Estim Creat Clear Calc 44.93, Est GFR (MDRD) Af Amer 51 L, Est GFR (MDRD) Non-Af 42 L, BUN/Creatinine Ratio 11.4, Glucose 217 H, Calcium 9.2 04/21/20 07:45: POC Glucose 222 H 04/21/20 09:15: Vancomycin Trough Pending Current Medications Acetaminophen (Tylenol) 1,000 mg PO Q8 [facility] Last Admin: 04/21/20 06:08 Dose: 1,000 mg Documented by: Amlodipine Besylate (Norvasc) 2.5 mg PO DAILY [facility] Last Admin: 04/20/20 08:59 Dose: 2.5 mg Documented by: Bupropion HCl (Wellbutrin Sr (150mg Tablets)) 150 mg PO BID [facility] Last Admin: 04/20/20 21:42 Dose: 150 mg Documented by: Cefdinir (Omnicef [Equiv]) 300 mg PO Q12 [facility] Last Admin: 04/20/20 21:42 Dose: 300 mg Documented by: Dextrose (D50w Syringe) 0 gm IV X1 PRN; Protocol PRN Reason: Hypoglycemia Duloxetine HCl (Cymbalta) 60 mg PO DAILY [facility] Last Admin: 04/20/20 08:59 Dose: 60 mg Documented by: Enoxaparin Sodium (Lovenox) 40 mg SC DAILY [facility] Last Admin: 04/20/20 08:58 Dose: 40 mg Documented by: Glucagon () 1 mg IM .X1 PRN PRN Reason: Hypoglycemia Hydromorphone HCl (Dilaudid Tablet) 1 mg PO Q3H PRN PRN PRN Reason: Pain Score 6-10/10 Last Admin: 04/21/20 03:14 Dose: 1 mg Documented by: Sodium Chloride () 250 mls @ 15 mls/hr IV .[id number] PRN PRN Reason: Saline Flush Last Infusion: 04/20/20 22:25 Dose: Infused Documented by: Sodium Chloride () 250 mls @ 15 mls/hr IV .[id number] PRN PRN Reason: Additional IVPB Infusion Insulin Glargine (Lantus (Bk)) 30 units SC BID [facility] Last Admin: 04/20/20 21:48 Dose: 30 u Documented by: Insulin Human Lispro (Humalog Kwikpen ([facility])) 0 unit SC ACHS [facility]; Protocol Last Admin: 04/21/20 07:47 Dose: 6 units Documented by: Insulin Human Lispro (Humalog Kwikpen ([facility])) 15 unit SC TIDAC [facility] Last Admin: 04/21/20 07:47 Dose: 15 units Documented by: Levothyroxine Sodium (Synthroid) 225 mcg PO DAILY@0600 [facility] Last Admin: 04/21/20 06:07 Dose: 225 mcg Documented by: Lisinopril (Zestril) 20 mg PO BID [facility] Last Admin: 04/20/20 21:43 Dose: 20 mg Documented by: Nutritional Formula ([facility] - [place] Flavor) [facility] Last Admin: 04/21/20 07:46 Dose: Not Given Documented by: Ondansetron HCl (Zofran Odt) 4 mg PO Q4H PRN PRN PRN Reason: NAUSEA Oxycodone HCl (Oxyir) 10 mg PO Q4H PRN PRN PRN Reason: Pain Score 6-10/10 Last Admin: 04/21/20 06:14 Dose: 10 mg Documented by: Pantoprazole Sodium (Protonix) 40 mg PO BID [facility] Last Admin: 04/20/20 21:42 Dose: 40 mg Documented by: Pramipexole Dihydrochloride (Mirapex) 0.125 mg PO BID [facility] Last Admin: 04/20/20 21:42 Dose: 0.125 mg Documented by: Discharge Diet: 1800 Calorie Control Diet, Carb Control Diet Discharge Activity: Return to Normal Activity Call your doctor if you observe: Fever of 101 or Higher, Shortness of breath, Dizziness, Fainting spells, Chest pain Home Medications: Medications to take at Discharge Ropinirole HCl [Requip] 0.25 mg PO BID 08/17/16 enalapril maleate 20 mg tablet 20 mg PO BID 02/14/18 fluticasone propionate 50 mcg/actuation nasal spray,suspension 2 spray INTRANASAL DAILY PRN PRN 02/14/18 levothyroxine 75 mcg tablet 225 mcg PO DAILY@0600 #90 tab 03/02/18 Amlodipine [Norvasc] 2.5 mg PO DAILY 03/21/20 Duloxetine HCl 60 mg PO DAILY 03/21/20 Omeprazole 40 mg PO BID 03/21/20 buPROPion SR [Wellbutrin SR (150mg tablets)] 150 mg PO BID 03/21/20 Acetaminophen [Tylenol] 1,000 mg PO Q8 tab 04/21/20 Cefdinir [Omnicef [equiv]] 300 mg PO Q12 2 Days cap 04/21/20 Insulin Glargine [Lantus SoloStar Pen] 30 units SUBCUT BID pen 04/21/20 Insulin Lispro [Humalog KwikPen] 15 unit SUBCUT TIDAC insuln.pen 04/21/20 Insulin Lispro [Humalog KwikPen] See Protocol SUBCUT ACHS insuln.pen 04/21/20 Oxycodone [Oxyir] 10 mg PO Q4H PRN PRN 7 Days tab 04/21/20 Primary Care Physician: Maico Jones MD [Primary Care Provider] - Please follow up with your Primary Care Physician in: 1 Week Please Follow Up With: Mando Lundy MD When: 1 Week Disposition: Inpt Rehab Unit/Facility Minutes spent on discharge:: 35 Patient Condition:: Stable Medical Necessity - Tobacco Use Smoking Status: Former smoker Tobacco Use: Non-smoker Meaningful Use Info Meaningful Use Diagnoses (Choose all that apply): None applicable
[2020-04-21 09:39] VITALS: PULSE 70
[2020-04-21 09:41] LABS: Bedside Glucose 184 mg/dL (70-110)
[2020-04-21] MEDS: Enoxaparin 40 MG/0.4 ML Syringe SC (09:50)
[2020-04-21] MEDS: DULoxetine Hcl 60 MG Capsule PO (09:50)
[2020-04-21] MEDS: Lisinopril 20 MG Tablet PO (09:50)
[2020-04-21] MEDS: Cefdinir 300 MG Capsule PO (09:50)
[2020-04-21] MEDS: Pramipexole Di-HCl 0.125 MG Tablet PO (09:51)
[2020-04-21] MEDS: Pantoprazole Sodium 40 MG Tablet PO (09:51)
[2020-04-21] MEDS: buPROPion (SR) 150 MG Tablet.SA PO (09:51)
[2020-04-21] MEDS: amLODIPine 2.5 MG Tablet PO (09:51)
[2020-04-21 10:03] LABS: Vancomycin, Trough Level 15.9 ug/mL (5.0-15.0)
--- NOTE | 2020-04-21 11:02 | NURSING ---
Report called to Tosha HIDALGO, states she may not be able to take up until 1800, she has several fall pt's in her unit, she will call Lj the supervisor instrument mechanics, and let me know.
[2020-04-21 11:20] LABS: Bedside Glucose 148 mg/dL (70-110)
--- NOTE | 2020-04-21 11:45 | PCA ---
Patient called out to go to bsc to have bowel movement. I went in there with beverly department chair to assist rangeltent onto bsc. Patient refuses to have us lab tech help him onto bsc he likes to do it himself his way. also refuses to let us highway construction inspector room with him even though he is a fall risk.
--- NOTE | 2020-04-21 11:50 | NURSING ---
heard tommy, came to room per lumber tying machine operator pt was on the floor. pt stated he attempted to stand up from bs and flipped the commode, discussed with patient the use of the call light and pt stated he knew he was not to attempt without assistance. no signs of obvious injuries. pt denies hitting his head. no change in dressing or ELOISA to lle. primary RN to room. vital signs obtained despite pt verbalizing he didn't feel it was needed. x5 assist used the hover mat and assisted patient back into bariatric bed. primary rn discussing with physician. no distress noted. call light within reach.
--- NOTE | 2020-04-21 12:00 | PCA ---
Addendum entered by Nora Jacobsen 04/21/20 12:07: Addendum entered by Nora Jacobsen 04/21/20 12:06: Original Note: patient calls and wants up to bsc to move his bowels. While getting him up he dont want any assitance to transfer to the toilet he wants to do it himself with us just standing by. then he proceded to piviot to bsc himself. He also doesnt want us to stay in the room with him while he uses the toilet so we left the room and made sure call light was close by due to patient request. he then when he was done procedded to get into the bed by himself and clean himself with
--- NOTE | 2020-04-21 12:03 | NURSING ---
1142 nurse was called into room, pt was on the floor, he had been on the bsc, and per pt the tried to get up and fell. He states he was aware he was not supposed to get up on his how. Denies hitting his head or anything, Dr Johnson was notified. [facility] called this nurse, gave her report and including the bp , pox, and hr. Pt is back in bed. He was assisted back to bed using the traylor mat with multiple staff members. Dr Lundy was verbal notified, he was at the nurses' station. He entered the pt's room at 1200, and reported to nurse his stump looks fine.
--- NOTE | 2020-04-21 12:10 | PCA ---
heard someone yell, went into room after nurse and seen patient on floor by window with bsc tipped onto its side. got hover [place] and air blower into room. assisted patient onto the hover [place] with the nurses and assisted him back to bed
[2020-04-21 12:47] VITALS: BP 121/53; PULSE 87; RESP 18; TEMP 37; O2SAT 95
[2020-04-21 13:56] LABS: Bedside Glucose 142 mg/dL (70-110)
--- NOTE | 2020-04-21 14:46 | PCM.PN.SRG ---
Patient Problems: Active and Suspected Problems (Last Reviewed 04/22/20 @ 19:[address] Juhi Polk DO) Hyponatremia (Acute) Subjective: Postop #2 Patient fell off the commode. Did not hit his head. Did not fall on his stump. - Physical Exam Vitals/I&O's: Vital Signs Temp Pulse Resp BP Pulse Ox 98.6 F 87 18 121/53 H 95 04/21/20 12:47 04/21/20 12:47 04/21/20 12:47 04/21/20 12:47 04/21/20 12:47 Oxygen Flow Rate (L/min) 3 Oxygen Delivery Method CPAP Weight: 389 lb 15.999 oz Body Mass Index (BMI) 54.6 Finger Stick Blood Glucose 190 Intake and Output for Last 24 Hours 04/19/20 04/20/20 04/21/20 23:59 23:59 23:59 Intake Total 4286.50 / 4286.50 1600 / 1900 700 / 700 Output Total 2857 / 2857 5325 / 6195 4772 / 4772 Balance 1429.50 / 1429.50 -3725 / -4295 -4072 / -4072 Drainage 75 ml yesterday, 72 ml today. General: Alert, Oriented x3 HEENT: PERRLA, EOMI Oral: Moist Mucosa Neck: Supple Abdomen: Soft, Non-Distended Skin: Incision - left BKA stump incision is dry and intact. Mild swelling present. No clinical evidence of hematoma. Neurological: Cranial nerves II-XII grossly intact Psych/Mental Status: Normal Affect, Appropriate Microbiology Past 72 Hours 04/19/20 Unknown Tissue - Left Foot Gram Stain - Final 04/19/20 Unknown Tissue - Left Foot Wound Culture - Preliminary Beta streptococcus Staphylococcus species Gram positive steph 04/17/20 16:06 Wound - Ankle Gram Stain - Final 04/17/20 16:06 Wound - Ankle Wound Culture - Preliminary Escherichia coli Proteus penneri Streptococcus agalactiae (B) Corynebacterium striatum Staphylococcus aureus 04/17/20 16:06 Wound - Left Foot Gram Stain - Final 04/17/20 16:06 Wound - Left Foot Wound Culture - Preliminary Escherichia coli Proteus penneri Streptococcus agalactiae (B) Corynebacterium striatum Staphylococcus aureus 04/17/20 05:08 Blood Culture (Wb) - Anticubital Right Blood Culture - Preliminary No growth in 48 hours. 04/17/20 16:17 Blood Culture (Wb) - Anticubital Right Blood Culture - Preliminary No growth in 48 hours. Laboratory Results 04/20/20 16:12: POC Glucose 180 H 04/20/20 21:46: POC Glucose 181 H 04/21/20 05:23: WBC 12.0 H, RBC 4.48 L, Hgb 11.9 L, Hct 38.8 L, MCV 86.6, MCH 26.6 L, MCHC 30.7 L, RDW Std Deviation 49.8 H, RDW Coeff of Jose 16.0 H, Plt Count 539 H, MPV 9.3 04/21/20 05:23: Sodium 131 L, Potassium 4.9, Chloride 98, Carbon Dioxide 25.0, Anion Gap 8, BUN 20 H, Creatinine 1.76 H, Estim Creat Clear Calc 44.93, Est GFR (MDRD) Af Amer 51 L, Est GFR (MDRD) Non-Af 42 L, BUN/Creatinine Ratio 11.4, Glucose 217 H, Calcium 9.2 04/21/20 07:45: POC Glucose 222 H 04/21/20 09:15: Vancomycin Trough 15.9 H 04/21/20 09:32: POC Glucose 184 H 04/21/20 11:11: POC Glucose 148 H 04/21/20 12:45: POC Glucose 142 H Current Medications Acetaminophen (Tylenol) 1,000 mg PO Q8 [facility] Last Admin: 04/21/20 14:12 Dose: 1,000 mg Documented by: Amlodipine Besylate (Norvasc) 2.5 mg PO DAILY [facility] Last Admin: 04/21/20 09:51 Dose: 2.5 mg Documented by: Bupropion HCl (Wellbutrin Sr (150mg Tablets)) 150 mg PO BID [facility] Last Admin: 04/21/20 09:51 Dose: 150 mg Documented by: Cefdinir (Omnicef [Equiv]) 300 mg PO Q12 [facility] Last Admin: 04/21/20 09:50 Dose: 300 mg Documented by: Dextrose (D50w Syringe) 0 gm IV X1 PRN; Protocol PRN Reason: Hypoglycemia Duloxetine HCl (Cymbalta) 60 mg PO DAILY [facility] Last Admin: 04/21/20 09:50 Dose: 60 mg Documented by: Enoxaparin Sodium (Lovenox) 40 mg SC DAILY [facility] Last Admin: 04/21/20 09:50 Dose: 40 mg Documented by: Glucagon () 1 mg IM .X1 PRN PRN Reason: Hypoglycemia Hydromorphone HCl (Dilaudid Tablet) 1 mg PO Q3H PRN PRN PRN Reason: Pain Score 6-10/10 Last Admin: 04/21/20 03:14 Dose: 1 mg Documented by: Sodium Chloride () 250 mls @ 15 mls/hr IV .[id number] PRN PRN Reason: Saline Flush Last Infusion: 04/20/20 22:25 Dose: Infused Documented by: Sodium Chloride () 250 mls @ 15 mls/hr IV .[id number] PRN PRN Reason: Additional IVPB Infusion Insulin Glargine (Lantus ([facility])) 30 units SC BID [facility] Last Admin: 04/21/20 09:49 Dose: 30 u Documented by: Insulin Human Lispro (Humalog Kwikpen ([facility])) 0 unit SC ACHS [facility]; Protocol Last Admin: 04/21/20 11:14 Dose: Not Given Documented by: Insulin Human Lispro (Humalog Kwikpen ([facility])) 15 unit SC TIDAC [facility] Last Admin: 04/21/20 12:53 Dose: Not Given Documented by: Levothyroxine Sodium (Synthroid) 225 mcg PO DAILY@0600 [facility] Last Admin: 04/21/20 06:07 Dose: 225 mcg Documented by: Lisinopril (Zestril) 20 mg PO BID [facility] Last Admin: 04/21/20 09:50 Dose: 20 mg Documented by: Nutritional Formula (Ralph - [place] Flavor) [facility] Last Admin: 04/21/20 07:46 Dose: Not Given Documented by: Ondansetron HCl (Zofran Odt) 4 mg PO Q4H PRN PRN PRN Reason: NAUSEA Oxycodone HCl (Oxyir) 10 mg PO Q4H PRN PRN PRN Reason: Pain Score 6-10/10 Last Admin: 04/21/20 11:12 Dose: 10 mg Documented by: Pantoprazole Sodium (Protonix) 40 mg PO BID [facility] Last Admin: 06/21/20 09:51 Dose: 40 mg Documented by: Pramipexole Dihydrochloride (Mirapex) 0.125 mg PO BID [facility] Last Admin: 04/21/20 09:51 Dose: 0.125 mg Documented by: Medical Necessity - Tobacco Use Smoking Status: Former smoker Tobacco Use: Non-smoker Assessment/Plan All Active Problems (Last Reviewed 04/22/20 @ 19:[address] Juhi Polk, DO) Hyponatremia (Acute) MRSA (methicillin resistant Staphylococcus aureus) infection (Acute) Sepsis (Resolved) Diabetic foot ulcer associated with type 2 diabetes mellitus (Acute) Acute renal failure (Resolved) COPD exacerbation (Resolved) Foot ulcer, left (Resolved) Hospital-acquired pneumonia (Resolved) Necrotizing fasciitis (Resolved) Non-ST elevated myocardial infarction (Resolved) Osteomyelitis of ankle or foot (Resolved) left foot neuropathic deep wound infection (Resolved) 1. Nonhealing infected diabetic ulcers left foot. 2. Sepsis 3. MRSA. 4. Diabetic neuropathy 5. Obesity 6. s/p left below knee amputation. Incision is dry and intact. Mild swelling present. No clinical evidence of hematoma after his fall from the commode today. Continue Cefdinir. Operative cultures show Beta Streptococcus, Staphylococcus species, and Gram positive steph. Preoperative cultures showed E. coli, Proteus penneri, Streptococcus group B, and Corynebacterium striatum. Anticipate increased metabolic needs from the infection. Prealbumin was 9.1. Encourage nutritional supplementation with protein to help the healing process. Rehab evaluation in process.
[2020-04-21 15:45] LABS: Bedside Glucose 183 mg/dL (70-110)
[2020-04-21 15:48] VITALS: BP 141/61; PULSE 84; RESP 18; TEMP 37.1; O2SAT 99
== END 2020-04-21 16:25 | DRG 854 ==
LOC: ED 16:54 → MS3 17:27
PROVIDERS: Internal Medicine Infectious Disease; Nurse Practitioner Family; Physician Assistant; Podiatrist; Surgery; Admitting Provider Internal Medicine; Emergency Provider Emergency Medicine; PCP Internal Medicine; Visit Provider Internal Medicine
PROC: 0Y6J0Z1 Detachment at Left Lower Leg, High, Open Approach (ICD-10-PCS; principal; 2020-04-19 12:15)
DX: A41.9 Sepsis, unspecified organism (principal); Z68.43 Body mass index [BMI] 50.0-59.9, adult; E87.1 Hypo-osmolality and hyponatremia; E11.621 Type 2 diabetes mellitus with foot ulcer; L97.523 Non-pressure chronic ulcer of other part of left foot with necrosis of muscle; B95.62 Methicillin resistant Staphylococcus aureus infection as the cause of diseases classified elsewhere; E11.21 Type 2 diabetes mellitus with diabetic nephropathy; E11.40 Type 2 diabetes mellitus with diabetic neuropathy, unspecified; I12.9 Hypertensive chronic kidney disease with stage 1 through stage 4 chronic kidney disease, or unspecified chronic kidney disease; E11.22 Type 2 diabetes mellitus with diabetic chronic kidney disease; N18.3 Chronic kidney disease, stage 3 (moderate); E66.01 Morbid (severe) obesity due to excess calories; K21.9 Gastro-esophageal reflux disease without esophagitis; G47.33 Obstructive sleep apnea (adult) (pediatric); G25.81 Restless legs syndrome; F32.9 Major depressive disorder, single episode, unspecified; F41.9 Anxiety disorder, unspecified; E03.9 Hypothyroidism, unspecified; F10.21 Alcohol dependence, in remission; J44.9 Chronic obstructive pulmonary disease, unspecified; I25.10 Atherosclerotic heart disease of native coronary artery without angina pectoris; E11.65 Type 2 diabetes mellitus with hyperglycemia; E11.51 Type 2 diabetes mellitus with diabetic peripheral angiopathy without gangrene; E78.5 Hyperlipidemia, unspecified; E11.610 Type 2 diabetes mellitus with diabetic neuropathic arthropathy; I25.2 Old myocardial infarction; W18.11XA Fall from or off toilet without subsequent striking against object, initial encounter; Y92.239 Unspecified place in hospital as the place of occurrence of the external cause; R29.6 Repeated falls; Z71.3 Dietary counseling and surveillance; Z79.4 Long term (current) use of insulin; Z79.890 Hormone replacement therapy; Z79.899 Other long term (current) drug therapy; Z87.891 Personal history of nicotine dependence; Z91.19 Patient's noncompliance with other medical treatment and regimen
CPT/HCPCS: 36415; 71046; 73630; 80048; 80202; 82962; 83605; 84134; 85025; 85027; 85652; 86140; 87040; 87070; 87075; 87077; 87086; 87088; 87102; 87186; 87205; 87206; 87635; 87640; 88305; 88307; 88311; 93005; 97163; 97166; 97802; 99282; G2023; J7030; J7040; J7050; J7120; A4216; J2405; U0003

== ENCOUNTER 2020-04-21 16:25 | Inpatient (IN) | payer MEDICARE, OTHER, SELFPAY ==
[2020-04-19 11:29] VITALS: BMI 54.6
[2020-04-21 16:54] VITALS: BP 129/70; PULSE 84; RESP 20; TEMP 37.1; O2SAT 96; BMI 55.9; BMI 56.0
[2020-04-21 17:16] LABS: Bedside Glucose 172 mg/dL (70-110)
[2020-04-21] MEDS: Insulin Lispro 100 UNIT/ML INSULN.PEN 15 UNIT SC (18:18)
[2020-04-21] MEDS: oxyCODONE 5 MG Tablet 10 MG PO ×2 (18:18→22:07)
[2020-04-21 19:15] VITALS: O2SAT 96
--- NOTE | 2020-04-21 19:34 | NURSING ---
Refused rehab admission packet. Alert and oriented, neuro assessment intact due to previous fall before admission and patient denies any pain other than to surgical site.
[2020-04-21 21:30] VITALS: BP 111/68; PULSE 86; RESP 18; TEMP 36.9; O2SAT 95
[2020-04-21] MEDS: Acetaminophen 500 MG Tablet 1000 MG PO (21:41)
[2020-04-21] MEDS: Lisinopril 20 MG Tablet PO (21:41)
[2020-04-21] MEDS: Pantoprazole Sodium 40 MG Tablet PO (21:41)
[2020-04-21] MEDS: Cefdinir 300 MG Capsule PO (21:41)
[2020-04-21] MEDS: buPROPion (SR) 150 MG Tablet.SA PO (21:41)
[2020-04-21] MEDS: Pramipexole Di-HCl 0.125 MG Tablet PO (21:41)
[2020-04-21] MEDS: Fluticasone 0.05% 1 SPRAY NASAL.SRY 2 SPRAY NASAL (21:45)
[2020-04-21 22:21] LABS: Bedside Glucose 136 mg/dL (70-110)
[2020-04-22] MEDS: oxyCODONE 5 MG Tablet 10 MG PO ×5 (04:02→23:18)
[2020-04-22 06:16] VITALS: BP 133/51; PULSE 80; RESP 20; TEMP 36.6; O2SAT 95
[2020-04-22] MEDS: Acetaminophen 500 MG Tablet 1000 MG PO ×3 (06:19→22:11)
[2020-04-22] MEDS: Enoxaparin 40 MG/0.4 ML Syringe SC (06:19)
[2020-04-22] MEDS: Levothyroxine 75 MCG Tablet 225 MCG PO (06:20)
[2020-04-22 07:07] VITALS: O2SAT 97
[2020-04-22 07:31] LABS: Bedside Glucose 231 mg/dL (70-110)
[2020-04-22] MEDS: DULoxetine Hcl 60 MG Capsule PO (07:43)
[2020-04-22] MEDS: Pramipexole Di-HCl 0.125 MG Tablet PO ×2 (07:43→22:11)
[2020-04-22] MEDS: amLODIPine 2.5 MG Tablet PO (07:43)
[2020-04-22] MEDS: buPROPion (SR) 150 MG Tablet.SA PO ×2 (07:44→22:13)
[2020-04-22] MEDS: Senna/Docusate Sodium 1 Tablet 2 TABLET PO (07:44)
[2020-04-22] MEDS: Lisinopril 20 MG Tablet PO ×2 (07:44→22:13)
[2020-04-22] MEDS: Pantoprazole Sodium 40 MG Tablet PO ×2 (07:44→22:11)
[2020-04-22] MEDS: Cefdinir 300 MG Capsule PO ×2 (07:44→22:11)
[2020-04-22] MEDS: Insulin Lispro 100 UNIT/ML INSULN.PEN SC ×3 (07:45→22:12)
[2020-04-22] MEDS: Insulin Lispro 100 UNIT/ML INSULN.PEN 15 UNIT SC ×3 (07:45→16:52)
[2020-04-22 08:08] LABS: Hemoglobin A1c 8.1 % (3.8-5.6)
[2020-04-22 08:18] VITALS: BP 136/68; PULSE 78; RESP 20; TEMP 36.6; O2SAT 95
[2020-04-22 11:46] LABS: Bedside Glucose 138 mg/dL (70-110)
[2020-04-22 16:55] LABS: Bedside Glucose 208 mg/dL (70-110)
--- NOTE | 2020-04-22 19:30 | HP.PCM_ITS ---
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 (2) Ulcer of left foot with necrosis of muscle Status: Chronic (3) Alcoholism in recovery Status: Chronic (4) Sepsis Status: Resolved Comment: with MRSA bacteremia due to diabetic foot infection August 2016 (5) COPD (chronic obstructive pulmonary disease) Status: Chronic (6) Diabetic neuropathy Status: Chronic Qualifiers: Diabetes mellitus type: type 2 Diabetes mellitus complication detail: diabetic polyneuropathy Qualified Code(s): E11.42 - Type 2 diabetes mellitus with diabetic polyneuropathy Comment: he has numbness in the feet and the tips of the fingers (7) CAD (coronary artery disease) Status: Chronic (8) Diabetes mellitus Status: Chronic Qualifiers: Diabetes mellitus type: type 2 Diabetes mellitus complication status: with neurologic complications Diabetes mellitus complication detail: with polyneu ropathy (9) Hypothyroidism Status: Chronic Qualifiers: Comment: Reports has been more tired and lacking interest in doing things at this time. He feels he is gaining more weight and this he does not want. Rechech thyroid levels. (10) CECILE treated with BiPAP Status: Chronic Comment: PATIENT HAS OWN MACHINE. He feels he is doing well (11) HTN (hypertension) Status: Chronic Qualifiers: Hypertension type: essential hypertension Qualified Code(s): I10 - Essential (primary) hypertension Comment: Is on an paola inhibitor and tolerating well. BP 124/85 (12) Diabetic foot ulcer associated with type 2 diabetes mellitus Status: Acute (13) New left bundle branch block Status: Inactive (14) Acute blood loss anemia Status: Inactive (15) Uncontrolled diabetes mellitus Status: Chronic Qualifiers: Diabetes mellitus type: type 2 Glycemic state: with hyperglycemia Qualified Code(s): E11.65 - Type 2 diabetes mellitus with hyperglycemia Comment: BS's uncontrolled due to excess calories an non-compliance with diet (16) Non-compliance Status: Chronic (17) Hyperlipidemia Status: Chronic Qualifiers: Comment: No recent labs available at time of visit. He reports he is not willing to use a statin. Will obtain labs from [facility] provider. No medical records available at time of visit. (18) Venous stasis dermatitis Status: Chronic Qualifiers: Laterality: bilateral Qualified Code(s): I87.2 - Venous insufficiency (chronic) (peripheral) (19) Diabetic neuropathy associated with type 2 diabetes mellitus Status: Chronic Qualifiers: Diabetes mellitus complication detail: diabetic polyneuropathy Qualified Code(s): E11.42 - Type 2 diabetes mellitus with diabetic polyneuropathy (20) Charcot's joint of foot due to diabetes Status: Chronic Comment: non-complaince with non-wt bearing and now has a BKA (21) Super obesity Status: Chronic Comment: BMI is 54.9 and that is without the leg that was amputated (22) Chronic renal failure, stage 3 (moderate) Status: Chronic (23) Hyponatremia Status: Acute (24) Pulmonary hypertension Status: Chronic (25) Grade I diastolic dysfunction Status: Chronic (26) Enlarged RV (right ventricle) Status: Chronic (27) Osteoarthritis Status: Chronic History of Present Illness Date of Admission: 04/21/20 Chief Complaint: debility due to RLE BKA The patient is a 64 year old M with a PMH of uncontrolled DM II, HTN, HLD, super morbid obesity, depression, alcoholism in remission, drug abuse in remission, diabetic peripheral polyneuropathy, hypothyroidism, chronic venous insufficiency with stasis hyperpigmentation and stasis dermatitis, chronic anemia, depression (possibly BPD), CECILE, L Charcot foot and non-compliance with off loading, chronic non-compliance with diet, chronic renal failure stage III, stage I diastolic dysfunction, pulmonary hypertension, right ventricular enlargement, low HDL and recent R BKA who was admitted to the [facility] at [facility] on 04/21/20 for debility due to recent BKA. He is admitted for 3 hours of therapy daily to restore him at or near his prior level of independence/function. All recent lab was reviewed and old records from the EMR. The patient was seen and examined. Recent H&P and DCS were reviewed. He currently lives on the second floor of his mothers house and he has no one at this time who will be able to help him at [place]. Given his size and hx of non- compliance I am very doubtful he will ever walk again but, he thinks he will be able to walk with a prosthesis. I suspect he will be wheelchair bound for the rest of his life. He will not be able to negotiate steps. There are very narrow hallways in the house and the door ways are also narrow. He realizes that he will not be able to hop around in the house. He is willing to go to SNF or ECF or assisted living until he can get a prosthesis and ambulate. He tells me that he would like to have gastric bypass surgery. He saw a bariatric surgeon at the [facility] 5 years ago and then he decided against the surgery. He tells me that if he doesn't get the weight off he is a man. He would also like to get a knee replacement. Not sure he has realistic expectations. DOMINGUEZ's were normal in March of 2020 with triphasic waveforms in the feet [] Past Medical History Past Medical History (Chronic Problems): Chronic Problems (Last Reviewed 04/22/20 @ 19:[address] Juhi Polk DO) Super obesity (Chronic) BMI is 54.9 and that is without the leg that was amputated Chronic renal failure, stage 3 (moderate) (Chronic) Pulmonary hypertension (Chronic) Grade I diastolic dysfunction (Chronic) Enlarged RV (right ventricle) (Chronic) Osteoarthritis (Chronic) Ulcer of left foot with necrosis of muscle (Chronic) Alcoholism in recovery (Chronic) COPD (chronic obstructive pulmonary disease) (Chronic) Diabetic neuropathy (Chronic) he has numbness in the feet and the tips of the fingers CAD (coronary artery disease) (Chronic) Diabetes mellitus (Chronic) Hypothyroidism (Chronic) Reports has been more tired and lacking interest in doing things at this time. He feels he is gaining more weight and this he does not want. Rechech thyroid levels. CECILE treated with BiPAP (Chronic) PATIENT HAS OWN MACHINE. He feels he is doing well HTN (hypertension) (Chronic) Is on an paola inhibitor and tolerating well. BP 124/85 Uncontrolled diabetes mellitus (Chronic) BS's uncontrolled due to excess calories an non-compliance with diet Non-compliance (Chronic) Hyperlipidemia (Chronic) No recent labs available at time of visit. He reports he is not willing to use a statin. Will obtain labs from [facility] provider. No medical records available at time of visit. Venous stasis dermatitis (Chronic) Diabetic neuropathy associated with type 2 diabetes mellitus (Chronic) Charcot's joint of foot due to diabetes (Chronic) non-complaince with non-wt bearing and now has a BKA Medical History: Medical History (Last Reviewed 04/22/20 @ 19:[address] Juhi Polk DO) Alcohol abuse F10.10 Anxiety and depression F41.9, F32.9 Arthritis M19.90 COPD (chronic obstructive pulmonary disease) J44.9 Diabetes type 2, uncontrolled E11.65 dx : 1999 last exacerbation : dka : never hypoglycemic episode : never er visit : never Drug abuse F19.10 GERD (gastroesophageal reflux disease) K21.9 GI problem R19.8 H/O transfusion of whole blood Z92.89 Hearing problem H91.90 High cholesterol E78.00 High triglycerides E78.1 CECILE (obstructive sleep apnea) G47.33 Pneumonia J18.9 Recurrent infections B99.9 Thyroid disorder E07.9 Vision problems H54.7 Vitamin deficiency E56.9 prostate problems HTN (hypertension) I10 Allergies No Known Allergies Allergy (Verified 04/22/20 06:17) Home Medications: Ambulatory Orders Medication Instructions Recorded Ropinirole HCl [Requip] 0.25 mg PO BID 08/17/16 enalapril maleate 20 mg tablet 20 mg PO BID 02/14/18 fluticasone propionate 50 2 spray INTRANASAL DAILY PRN PRN 02/14/18 mcg/actuation nasal spray,suspension Amlodipine [Norvasc] 2.5 mg PO DAILY 03/21/20 Duloxetine HCl 60 mg PO DAILY 03/21/20 Omeprazole 40 mg PO BID 03/21/20 buPROPion SR [Wellbutrin SR (150mg 150 mg PO BID 03/21/20 tablets)] Acetaminophen [Tylenol] 1,000 mg PO Q8 04/21/20 Cefdinir [Omnicef [equiv]] 300 mg PO Q12 04/21/20 Insulin Glargine [Lantus SoloStar 30 units SUBCUT BID 04/21/20 Pen] Insulin Lispro [Humalog KwikPen] 15 unit SUBCUT TIDAC 04/21/20 Insulin Lispro [Humalog KwikPen] See Protocol SUBCUT ACHS 04/21/20 Levothyroxine [Synthroid] 225 mcg PO DAILY@0600 04/21/20 Oxycodone [Oxyir] 10 mg PO Q4H PRN PRN 7 Days tab 04/21/20 Surgical History: Surgical History (Last Reviewed 04/22/20 @ 19:[address] 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 Psychiatric History: Anxiety, Bipolar - his mother related to me that he is bipolar, Depression Lives: With Family - he lives with his mother but she is currently in [place] with her dtr recovering from, - - he lives in the basement of his mothers house however, she is currently staying with her dtr in [place] Smoking Status: Former smoker Tobacco Use: Non-smoker Alcohol: Sober Drugs: - - illicit drug use in the past but, denies current use - *Family History Paternal Family History: Family History (Last Reviewed 04/22/20 @ 20:[address] Juhi Polk DO) Mother Arthritis Diabetes Hypertension High cholesterol Osteoporosis Sister Breast cancer Cancer High cholesterol Brother Lung cancer High cholesterol Father Hypertension High cholesterol History Items: Heart Disease, Hypertension Maternal Family History: Family History (Last Reviewed 04/22/20 @ 20:[address] Juhi Polk DO) Mother Arthritis Diabetes Hypertension High cholesterol Osteoporosis Sister Breast cancer Cancer High cholesterol Brother Lung cancer High cholesterol Father Hypertension High cholesterol History Items: Diabetes Sibling Family History: Family History (Last Reviewed 04/22/20 @ 20:[address] Juhi Polk DO) Mother Arthritis Diabetes Hypertension High cholesterol Osteoporosis Sister Breast cancer Cancer High cholesterol Brother Lung cancer High cholesterol Father Hypertension High cholesterol History Items: Cancer - sister with breast, brother of lung cancer Review of Systems Constitutional: Denies: Anorexia, Chills, Fever, Malaise, Weight Change Eyes: Denies: Blurred vision, Vision Change HEENT: Denies: Difficulty Hearing, Head Aches, Sinus Congestion, Sinus Drainage, Sore Throat Cardiovascular: Reports: Edema. Denies: Chest Pain, Light Headedness, Orthopnea, Palpitations Respiratory: Reports: Shortness of breath upon exertion. Denies: Cough, Shortness of breath at rest, Sputum production Gastrointestinal: Denies: Abdominal Pain, Constipation, Diarrhea, Nausea, Vomiting Genitourinary: Reports: - - he currently has a Zimmer in place.......he is unable to reach his penis to urinate and he was unable to use the urinal on med surg so they left the zimmer in to keep him dry. Denies: Dysuria Musculoskeletal: Reports: - - knee pain BL. Denies: Joint Pain, Joint Tenderness Skin: Reports: Wounds - he has an incision of the left LE below the knee due to amputation. Denies: Jaundice, Rash Neurological: Reports: Balance problems. Denies: Slurred speech, Confusion, Focal weakness, Headaches, Numbness, Tingling, Tremor, Seizures Psychiatric: Reports: Depression. Denies: Anxiety, Homicidal Ideations, Suicidal Ideations Endocrine: Reports: Change in Body Habitus - has been gaining weight Hematologic/ Lymphatic: Denies: Easy Bruising, Easy Bleeding, Hx of blood clot VTE Information - Inpt Only VTE Present on Admission: No VTE Mechan Device Prophylaxis: SCD's VTE Pharm Prophylaxis ordered?: Yes Patient Problems: Active and Suspected Problems (Last Reviewed 04/22/20 @ 19:[address] Juhi Polk DO) Hyponatremia (Acute) - Physical Exam Vitals/I&O's: Vital Signs Temp Pulse Resp BP Pulse Ox 97.8 F 78 20 H 136/68 H 95 04/22/20 08:18 04/22/20 08:18 04/22/20 08:18 04/22/20 08:18 04/22/20 08:18 Oxygen Delivery Method Room Air Weight: 382 lb 15.087 oz Body Mass Index (BMI) 55.9 Finger Stick Blood Glucose 190 Intake and Output for Last 24 Hours 04/20/20 04/21/20 04/22/20 23:59 23:59 23:59 Intake Total 600 / 660 1380 / 1380 Output Total 770 / 1220 2220 / 2220 Balance -170 / -560 -840 / -840 General: Alert, Oriented x3, Cooperative, No apparent distress, - - he is sitting at the EOB HEENT: Atraumatic, PERRLA, EOMI, Normocephalic Oral: No Gingival or Mucosal Lesions/ Ulcerations, Dry Mucosa Neck: Supple, No JVD, Trachea Midline, - - his neck is thick and short and I am not able to hear anything over the carotids Lungs: Clear to auscultation, Diminished Cardiovascular: Regular rate, Regular Rhythm, Normal S1, Normal S2, No murmurs, No Gallop, - - distant heart sounds Abdomen: Bowel Sounds Present, Soft, Non Tender, Obese, - - No guarding with palpation Extremities: No clubbing, No edema, Capillary Refill Less than 3 Seconds, Cyanosis - he has cyanosis of the fingernail beds, Edema - at the ankle and the distal pretibial area, - - radial pulses are 3/3 DP on the R is normal Skin: No breakdown, - - intertrigo in the folds Musculoskeletal: No Muscle Wasting, Tenderness - of the knees BL but, no erythema and no warmth to touch Neurological: Cranial nerves II-XII grossly intact, Neuro grossly intact - but he has numbness of the R foot and the tips of all the fingers. Psych/Mental Status: Normal Affect, Appropriate Laboratory Results 04/21/20 05:23: Hemoglobin A1c 8.1 H 04/21/20 21:39: POC Glucose 136 H 04/22/20 07:27: POC Glucose 231 H 04/22/20 11:23: POC Glucose 138 H 04/22/20 16:51: POC Glucose 208 H Current Medications Acetaminophen (Tylenol) 1,000 mg PO Q8 [facility] Last Admin: 04/22/20 13:29 Dose: 1,000 mg Documented by: Amlodipine Besylate (Norvasc) 2.5 mg PO DAILY [facility] Last Admin: 04/22/20 07:43 Dose: 2.5 mg Documented by: Bisacodyl (Dulcolax) 10 mg RECTAL .PRN X 1 PRN PRN Reason: Constipation Bupropion HCl (Wellbutrin Sr (150mg Tablets)) 150 mg PO BID [facility] Last Admin: 04/22/20 07:44 Dose: 150 mg Documented by: Cefdinir (Omnicef [Equiv]) 300 mg PO Q12 [facility] Stop: 04/23/20 10:01 Last Admin: 04/22/20 07:44 Dose: 300 mg Documented by: Duloxetine HCl (Cymbalta) 60 mg PO DAILY [facility] Last Admin: 04/22/20 07:43 Dose: 60 mg Documented by: Enoxaparin Sodium (Lovenox) 40 mg SC DAILY@0600 [facility] Last Admin: 04/22/20 06:19 Dose: 40 mg Documented by: Fluticasone Propionate (Flonase Nasal [place]) 2 spray NASAL DAILY PRN PRN PRN Reason: SINUS CONGESTION Last Admin: 04/21/20 21:45 Dose: 2 sprays Documented by: Insulin Glargine (Lantus (Bkc)) 30 units SC BID [facility] Last Admin: 04/22/20 07:45 Dose: 30 units Documented by: Insulin Human Lispro (Humalog Kwikpen (Bkc)) 15 unit SC TIDAC [facility] Last Admin: 04/22/20 16:52 Dose: 15 u Documented by: Insulin Human Lispro (Humalog Kwikpen (Bkc)) 0 unit SC ACHS [facility]; Protocol Last Admin: 04/22/20 16:52 Dose: 3 u Documented by: Levothyroxine Sodium (Synthroid) 225 mcg PO DAILY@0600 [facility] Last Admin: 04/22/20 06:20 Dose: 225 mcg Documented by: Lisinopril (Zestril) 20 mg PO BID [facility] Last Admin: 04/22/20 07:44 Dose: 20 mg Documented by: Magnesium Hydroxide (Milk Of Magnesia) 30 ml PO .PRN X 1 PRN PRN Reason: Constipation Oxycodone HCl (Oxyir) 10 mg PO Q4H PRN PRN PRN Reason: Pain Score 6-10/10 Last Admin: 04/22/20 17:59 Dose: 10 mg Documented by: Pantoprazole Sodium (Protonix) 40 mg PO BID [facility] Last Admin: 04/22/20 07:44 Dose: 40 mg Documented by: Pramipexole Dihydrochloride (Mirapex) 0.125 mg PO BID [facility] Last Admin: 04/22/20 07:43 Dose: 0.125 mg Documented by: Senna/Docusate Sodium (Senokot-S, Jolly-Colace) 2 tablet PO BID [facility] Last Admin: 04/22/20 07:44 Dose: 2 tablet Documented by: Assessment/Plan All Active Problems (Last Reviewed 04/22/20 @ 19:[address] Juhi Polk, DO) Hyponatremia (Acute) MRSA (methicillin resistant Staphylococcus aureus) infection (Acute) Sepsis (Resolved) Diabetic foot ulcer associated with type 2 diabetes mellitus (Acute) Acute renal failure (Resolved) COPD exacerbation (Resolved) Foot ulcer, left (Resolved) Hospital-acquired pneumonia (Resolved) Necrotizing fasciitis (Resolved) Non-ST elevated myocardial infarction (Resolved) Osteomyelitis of ankle or foot (Resolved) left foot neuropathic deep wound infection (Resolved) Impressions 1. debility due to L BKA on 04/19/[address] Lundy. Pt had multiple procedures prior to this in the past to try and salvage the foot but he is chronically non- compliant with off loading and BKA seemed the best option. He had Charcot foot on the left. 2. Normochromic normocytic anemia with an increased RDW - possibly related to chronic infection with BM suppression and blood loss with surgery 3. Hyponatremia 4. chronic medical conditions: CECILE/super obesity with a BMI of 54.9 and that is after the LLE was amputated/hypertension/diabetes mellitus type 2/dyslipidemia/low HDL/GERD/restless leg syndrome/hypothyroidism/chronic renal failure stage III/depression/right ventricular enlargement/grade 1 diastolic dysfunction/diabetic peripheral polyneuropathy affecting the hands and feet/o steoarthritis/tobacco dependence in remission/history of alcoholism-currently in remission/history of drug use/abuse in the past. These conditions complicate care, management and prognosis. PLAN PT for standing balance, stand and pivot into the wheel chair and UE strengthening to be able to get himself around in a WC. Eventually he would like to ambulate with a prosthesis but, I am not sure this is a realistic expectation with neuropathy and super obesity. OT for ADL's Analgesics as needed Bowel protocol Fall precautions Assess for Anxiety/Depression GI prophylaxis with Protonix DVT prophylaxis with Lovenox 40 mg subcu every 12 hours in a patient with a BMI greater than [address] Lundy/wound care center following DC from IP Rehab Follow-up with Dr. Jones post discharge from inpatient rehab Increase the Lovenox to 40 mg BID in light of BMI > than 50 and the very high risk for DVT in this pt who is sedentary and non-ambulatory repeat lab on Wednesday Focus on his ability to stand an pivot and to maneuver WC at this time May need to make different living arrangements since he will not be able to get a WC around and into the BR in his current living situation - he is open to this and we will discuss on rounds with SW Encouraged him to continue calorie controlled diet at [place] Also encouraged him to follow up with the bariatric surgeon he saw 5 years ag to be considered for surgery we discussed the risk for the other leg to be amputated within the next 5 years unless he is able to control the BS's and is compliant with follow up Recommended he have regular visits with Dr. Soto to keep the right foot healthy I suspect that the ECHO grossly underestimates the RV sys pressure. Need to find out when he had his last sleep study and who prescribed the CPAP......If it was more than a year ago he may need a new study since his weight has increased from 345 lbs in 2016 to 389 lbs on 04/19/20....44 lb weight gain Start Ralph twice daily, zinc 220 mg daily, vitamin C 500 mg twice daily and a multivitamin daily to assist with wound healing. Check a microalbumin/creatinine ratio........ot has stage 3 CRF and will discuss with the security operations analyst when to start to restric protein to preserve kidney function? Inpatient E&M: 60021 Init Hosp L3
[2020-04-22 19:37] VITALS: BP 101/73; PULSE 92; RESP 18; TEMP 36.9; O2SAT 97
--- NOTE | 2020-04-22 20:07 | REHABEVAL_ITS ---
Admission Information Primary Diagnosis:: debility due to R BKA and super morbid obesity. Status Changes from Prescreening?: No changes Identified Actual Problem List:: Skin Intergrity, Depression, Mobility Impaired, Self Care Deficit, Alteration-Leisure Activ. Potential Problem List:: DVT, Bleeding, Infection, UTI, Aspiration, Falls, Skin Integrity, Depression Risk of Complications DVT: LMWH, SANJAY Hose Bleeding: Monitor Lab Values, Nursing to Teach Precautions for anti-coagulation therapy., Wound, if applicable, to be assessed every shift., Stroke patients assessed for lethargy or change in status. Infection: Clinical Staff to Monitor for S/S of infection:, S/S of infection include fever, redness, warmth, etc. Urinary Tract Infection: Monitor for frequency, burning, discomfort, or incontinence., Nursing will obtain urine sample for urinalysis and C&S when ordered. Aspiration: Clinical staff will monitor for coughing, drooling, congestion., Speech will evaluate swallowing and dsyphasia., Nursing will monitor patient swallowing during meals. Falls: Patient will be evaluated for Fall Precautions, Patient will be placed on Fall Precautions as indicated per protocol. Skin Breakdown: Nursing will assess skin daily using assessment tool., Nursing will place on Skin Breakdown Precautions as indicated. Pain: Clinical staff will assess patient's pain level per protocol., Medications will be given, if needed, and the pain level reassessed., Other methods: Massage, distraction, decrease stimulus, etc. used PRN. Plan of Care Patient requires physician specializing in physical medicine and rehab oversight to provide close medical supervision of rehab issues including: Pain Management, Sleep Problems, Bowel and Bladder, Medical and co-morbidity Management, DVT prophylaxis, Rehabilitation Leadership, Coordination of treatment team Patient needs Physical Therapy: For a minimum of 1 hour, At least 5 out of 7 days Patient needs Physical Therapy to improve:: Mobility, Mobility, Mobility, Strengthening, Transfers, Stretching, ROM, Endurance, Stairs, Gait, Balance Patient needs Occupational Therapy: For a minimum of 1 hour, At least 5 out of 7 days Patient needs Occupational Therapy to improve ADL's incl.: Eating, Grooming, Bathing, Dressing, Toileting, Toilet transfers, Community Reintegration, Higher functioning activities, Household tasks, Adaptive Equipment, Splinting, Other activities as determined Patient requires 24/ Rehabilitation Nursing for: Pain Issues, Identifying and preventing risk factors, Monitoring and reporting current medical conditions, Assisting with ambulation, transfer, and all ADL's, Teaching patients about disease process and medications, Family teaching, Providing safe environment, Bowel and Bladder Issues, Skin integrity, Medication Management Patient needs Integrated Logistics Programs Director/ Case Management for: Discharge Planning, Arranging Home Equipment or Services, Family Interventions Patient needs Dietary and Nutrition Services for: Adequate Nutrition, Nutritional Supplements, Nutritional Education Goals Patient will remain: free from falls, or injury at time of discharge. Patient will perform bed mobility at: MOD I level of assist. Patient will complete transfers from bed to chair at: MOD I level of assist. Patient will propel wheelchair: with MOD I assist Patient will complete upper body dressing at: MOD I level of assist. Patient will complete lower body dressing at: MOD I level of assist. Patient will complete toileting at: MOD I level of assist. Patient will perform bathing at: MOD I level of assist. Patient will complete grooming at: MOD I level of assist. Patient will complete home management skills at: MOD I level of assist. Patient will have pain level of: of 3 or less Patient's skin will: remain intact, free from infection. Patient will receive: adequate nutrition. Discharge Planning Pt Prognosis for Sig. Practical Improv. w/in Reasonable Time: Fair Estimated Length of stay (days): 21 Anticipated D/C Destination: Assisted Living Facility Was Preadmission Assessment Accurate?: Yes
[2020-04-22 22:00] VITALS: PULSE 92; RESP 18
[2020-04-22] MEDS: Fluticasone 0.05% 1 SPRAY NASAL.SRY 2 SPRAY NASAL (22:13)
[2020-04-22 22:16] LABS: Bedside Glucose 239 mg/dL (70-110)
--- NOTE | 2020-04-23 04:07 | NURSING ---
Reviewed and agree with HSPT TUTOR documentation and charting.
[2020-04-23] MEDS: Acetaminophen 500 MG Tablet 1000 MG PO ×3 (05:07→22:30)
[2020-04-23] MEDS: Enoxaparin 40 MG/0.4 ML Syringe SC ×2 (05:07→22:29)
[2020-04-23] MEDS: Levothyroxine 75 MCG Tablet 225 MCG PO (05:07)
[2020-04-23 05:39] LABS: Hematocrit 42.5 % (40-54); Hemoglobin 12.9 g/dL (13.0-16.5); Mean Corp Hgb Conc 30.4 g/dL (32-36); Mean Corpuscular Hgb 26.5 pg (27.0-32.0); Mean Corpuscular Volume 87.3 fL (80-94); Mean Platelet Vol. 9.4 fl (6.2-12.0); POSITIVE COUNT YES; POSITIVE MORPHOLOGY YES; Platelet Count 577 K/mm3 (150-450); RBC Distribution Width CV 15.9 % (11.6-14.6); RBC Distribution Width SD 50.4 fl (35.1-43.9); Red Blood Count 4.87 M/mm3 (4.6-6.2); White Blood Count 9.9 K/mm3 (4.4-11.0)
[2020-04-23 05:48] LABS: Differential Indicated MANUAL DIFF
[2020-04-23 06:08] LABS: ALB/GLOB Ratio 0.4 RATIO (0.9-2.4); AST(SGOT) 31 U/L (15-37); Alanine Aminotransfer ALT/SGPT 32 U/L (16-61); Albumin, Serum 2.3 g/dL (3.2-5.0); Alkaline Phosphatase 90 U/L (45-117); Anion Gap 7 (5-15); BUN 30 mg/dL (7-18); BUN/Creat Ratio 15.3 RATIO (10-20); Chloride 100 mmol/L (98-107); Cholesterol 200 mg/dL (200); Creatinine, Serum 1.96 mg/dL (0.70-1.30); EST Glomerular Filtration Rate 37 mL/min (>60); Est Glom Filt Rate - Afr Amer 45 mL/min (>60); Estimated Creatinine Clearance 40.35 ml/min; Glucose 211 mg/dL (74-106); High Density Lipoprotein 25 mg/dL; Magnesium 1.9 mg/dL (1.6-2.6); Phosphorus 4.3 mg/dL (2.5-4.9); Potassium 4.8 mmol/L (3.5-5.1); Protein, Total 8.3 g/dL (6.4-8.2); Sodium Level 133 mmol/L (136-145); T4 Free Direct 1.26 ng/dL (0.76-1.46); Thyroid Stim Hormone (TSH) 2.75 uIU/mL (0.358-3.74); Triglycerides 268 mg/dL; Very Low Density Lipoprotein 54 mg/dL (5-40)
[2020-04-23 06:35] LABS: Bedside Glucose 198 mg/dL (70-110)
[2020-04-23 07:10] LABS: Lymphocyte 26 % (19-41); Metamyelocyte 6 % (0-1); Monocyte 7 % (0-10); Neutrophil-Band 3 % (0-5); Neutrophil-Segmented 64 % (47-70); Total Cells Counted 100 (MANUAL DIFF)
[2020-04-23 07:12] LABS: Absolute Lymphocyte Count 2.57 X10^3/uL (0.83-4.51); Absolute Neutrophil Count 6.6 X10^3/uL (2.0-7.7); Lymphocyte # 2.57 X10^3/ul (4.0); Neutrophil # 6.63 X10^3/uL (2.7-7.7); Platelet Estimate ADEQUATE (ADEQ); Reactive Lymphocyte RARE; Red Cell Morphology NORM C+C NORMAL (NORM C&C)
[2020-04-23] MEDS: Lisinopril 20 MG Tablet PO ×2 (07:30→22:30)
[2020-04-23] MEDS: Pramipexole Di-HCl 0.125 MG Tablet PO ×2 (07:31→22:30)
[2020-04-23] MEDS: Pantoprazole Sodium 40 MG Tablet PO ×2 (07:31→22:30)
[2020-04-23] MEDS: buPROPion (SR) 150 MG Tablet.SA PO ×2 (07:31→22:30)
[2020-04-23] MEDS: DULoxetine Hcl 60 MG Capsule PO (07:31)
[2020-04-23] MEDS: Cefdinir 300 MG Capsule PO (07:31)
[2020-04-23] MEDS: amLODIPine 2.5 MG Tablet PO (07:31)
[2020-04-23] MEDS: Insulin Lispro 100 UNIT/ML INSULN.PEN SC ×4 (07:32→22:31)
[2020-04-23] MEDS: Insulin Lispro 100 UNIT/ML INSULN.PEN 15 UNIT SC ×3 (07:32→17:44)
[2020-04-23] MEDS: oxyCODONE 5 MG Tablet 10 MG PO ×4 (07:35→21:29)
[2020-04-23 07:53] VITALS: BP 110/56; PULSE 73; RESP 18; TEMP 36.5; O2SAT 93
--- NOTE | 2020-04-23 09:24 | CASEMGMT ---
Social Work Updated pt's emergency contact's as mother is currently living in [place] due to her own health issues. Pt lives at home alone and requested to ad his cousin Aung and Uncle Erick Marinelli as person to notify. Updated and will contact Aung first. KD BarneyW
[2020-04-23 11:51] LABS: Bedside Glucose 203 mg/dL (70-110)
[2020-04-23 12:02] LABS: Pathologist Review Reviewed
[2020-04-23 12:05] VITALS: O2SAT 98
[2020-04-23 17:40] LABS: Bedside Glucose 156 mg/dL (70-110)
[2020-04-23 19:42] VITALS: BP 153/80; PULSE 79; RESP 18; TEMP 36.6; O2SAT 97
[2020-04-23 21:50] LABS: Bedside Glucose 217 mg/dL (70-110)
--- NOTE | 2020-04-23 22:22 | NURSING ---
Pt irritated about the bed alarm as he c/o the alarm going off every time he moves in bed. Pt refused to wear hospital gown and is sleeping naked in bed, thus having no place to attach PA to pt and bed alarm is in place d/t fall risk of pt. 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 Pt requests slide board for transfer and was informed by staff that therapy makes implements slide board transfers and we are not able to. Pt got gruff and responded that there it is tough just sitting around in here and he refuted that he actually had 2 falls before coming to the Rehab Unit.
[2020-04-23] MEDS: Senna/Docusate Sodium 1 Tablet 2 TABLET PO (22:32)
[2020-04-24 01:48] LABS: Microalbumin,Random Urine 57.7 mg/L (NO RANGE EST.); Microalbumin:Creatinine Ratio 96.6 mg/g CRE (<30 mg/g CRE)
[2020-04-24] MEDS: oxyCODONE 5 MG Tablet 10 MG PO ×4 (02:13→18:19)
[2020-04-24] MEDS: Acetaminophen 500 MG Tablet 1000 MG PO ×3 (06:41→22:17)
[2020-04-24] MEDS: Levothyroxine 75 MCG Tablet 225 MCG PO (06:42)
[2020-04-24] MEDS: Insulin Lispro 100 UNIT/ML INSULN.PEN 15 UNIT SC ×2 (06:42→11:57)
[2020-04-24] MEDS: Insulin Lispro 100 UNIT/ML INSULN.PEN SC ×3 (06:42→17:06)
[2020-04-24 07:16] LABS: Bedside Glucose 300 mg/dL (70-110)
[2020-04-24] MEDS: Senna/Docusate Sodium 1 Tablet 2 TABLET PO ×2 (08:23→22:17)
[2020-04-24] MEDS: Pantoprazole Sodium 40 MG Tablet PO ×2 (08:23→22:17)
[2020-04-24] MEDS: Multivitamins,Therapeutic Tablet 1 TABLET PO (08:23)
[2020-04-24] MEDS: buPROPion (SR) 150 MG Tablet.SA PO ×2 (08:23→22:17)
[2020-04-24] MEDS: Lisinopril 20 MG Tablet PO ×2 (08:23→22:17)
[2020-04-24] MEDS: Ascorbic Acid 500 MG Tablet PO ×2 (08:23→17:05)
[2020-04-24] MEDS: amLODIPine 2.5 MG Tablet PO (08:23)
[2020-04-24] MEDS: Pramipexole Di-HCl 0.125 MG Tablet PO ×2 (08:23→22:18)
[2020-04-24] MEDS: DULoxetine Hcl 60 MG Capsule PO (08:23)
[2020-04-24] MEDS: Enoxaparin 40 MG/0.4 ML Syringe SC ×2 (08:24→17:05)
--- NOTE | 2020-04-24 08:31 | NURSING ---
Pt refused lemuel this AM stating it it tastes terrrible and I just can't do it. Education provided.
[2020-04-24 08:47] VITALS: BP 132/73; PULSE 87; RESP 18; TEMP 36.5; O2SAT 97
[2020-04-24 11:31] LABS: Bedside Glucose 304 mg/dL (70-110)
--- NOTE | 2020-04-24 12:43 | PN_ITS ---
Progress Note Abreu is out. Pt has not been wearing anything at night to sleep in and the nurses can not find anywhere to attach the PA. I told him it is a CMS rule that ever patient must have a PA unless they have have been made MOD I prior to DC. He is agreeable to wearing sweat pants at night so we have a place to attach the alarm. He is afebrile. Heart rate is well controlled. Blood pressure is well controlled. He is maintaining appropriate oxygen saturation on room air. He is wearing his CPAP unit anytime he is sleeping. Blood sugar record was reviewed and his blood sugars are not controlled. The fasting blood sugar this morning was 300 and the at bedtime sugar was 217. The lunch sugar today was 304. Andrei admits to eating food brought in by family. We discussed how uncontrolled BS's will delay healing of the stump and also increase the risk of infection. He is very frustrated. He was unprepared for an amputation and feels everything has happened so fast. He realizes now that because of poor choices he has lost his leg and may well lose independence. He continues to feel he will be able to walk with a prosthesis...I am doubtful of this. He told the OT that he can build a ramp to get into the house and that he can move his bed downstairs and use a BSC. I told him the wound must heal completely and the strump shrink before a prosthesis will even be considered. His movements are jerky and once he gets his weight moving he is bumping the stump into the bed rails and he uses the stump to try and push off. Microalbumin/creatinine ratio was 96.6 which is high and indicates diabetic nephropathy. He is already on an MAURILIO inhibitor. Suspect the CRF is due to poorly controlled HTN He is c/o not sleeping well last night and blames the Abreu and the drain and the bed alarm and the cords.......he is getting tangled up and he is uncomfortable. The Abreu was removed today. Alert, oriented X 3, no apparent distress Lungs-diminished but clear to auscultation Heart-regular rate and rhythm, distant heart sounds Abdomen-soft, nontender, nondistended, obese, normal bowel sounds present No edema of the right lower extremity No focal neurologic deficits Impressions 1. Debility secondary to left BKA for Charcot foot with chronic infection - chronically noncompliant with offloading and nonweightbearing on the left lower extremity resulting in chronic infection 2. Super obesity 3. CECILE 4. Diabetes mellitus type 2 with significant insulin resistance requiring large doses of insulin with meals. May benefit from U5 100 going forward. 5. Chronic renal failure with elevated microalbumin/creatinine ratio Continue therapy Abreu was discontinued Pt requests that Dr. Soto be consulted for nail debridement on the R foot.....he will be following up with Dr. Soto going for for routine foot care STROKE Vital Signs/Narrative: Vital Signs Temp Pulse Resp BP Pulse Ox 04/24/20 08:47 97.7 F L 87 18 132/73 H 97 Inpatient E&M: 02017 Subs Hosp L2
[2020-04-24 17:00] LABS: Bedside Glucose 274 mg/dL (70-110)
[2020-04-24] MEDS: Insulin Lispro 100 UNIT/ML INSULN.PEN 20 UNIT SC (17:07)
[2020-04-24] MEDS: Linezolid 600 MG 600 MG/300 ML BAG 200 MG IV (17:09)
[2020-04-24 20:02] VITALS: BP 143/74; PULSE 74; RESP 16; TEMP 36.4; O2SAT 99
[2020-04-24 22:05] LABS: Bedside Glucose 279 mg/dL (70-110)
[2020-04-25] MEDS: oxyCODONE 5 MG Tablet 10 MG PO ×5 (00:19→20:08)
[2020-04-25] MEDS: Levothyroxine 75 MCG Tablet 225 MCG PO (05:40)
[2020-04-25] MEDS: Enoxaparin 40 MG/0.4 ML Syringe SC ×2 (05:40→16:03)
[2020-04-25] MEDS: Acetaminophen 500 MG Tablet 1000 MG PO ×3 (05:40→22:51)
[2020-04-25 07:05] LABS: Bedside Glucose 246 mg/dL (70-110)
[2020-04-25 07:44] VITALS: BP 125/61; PULSE 71; RESP 18; TEMP 36.5; O2SAT 97
[2020-04-25] MEDS: Insulin Lispro 100 UNIT/ML INSULN.PEN SC ×3 (07:59→17:22)
[2020-04-25] MEDS: Insulin Lispro 100 UNIT/ML INSULN.PEN 15 UNIT SC ×2 (08:00→11:38)
[2020-04-25] MEDS: DULoxetine Hcl 60 MG Capsule PO (08:01)
[2020-04-25] MEDS: Ascorbic Acid 500 MG Tablet PO ×2 (08:01→16:02)
[2020-04-25] MEDS: Multivitamins,Therapeutic Tablet 1 TABLET PO (08:01)
[2020-04-25] MEDS: Pramipexole Di-HCl 0.125 MG Tablet PO ×2 (08:02→20:09)
[2020-04-25] MEDS: Lisinopril 20 MG Tablet PO ×2 (08:03→20:09)
[2020-04-25] MEDS: amLODIPine 2.5 MG Tablet PO (08:03)
[2020-04-25] MEDS: Pantoprazole Sodium 40 MG Tablet PO ×2 (08:03→20:09)
[2020-04-25] MEDS: buPROPion (SR) 150 MG Tablet.SA PO ×2 (08:03→20:09)
--- NOTE | 2020-04-25 10:42 | CASEMGMT ---
Social Work IDT met with patient for Team Meeting. Discussed patient's progress in therapy. Pt is min-mod assist for SPT, SBA for bed mobility, sponge bathed at set up, min assist for LE bathing. Pt using adaptive equipment and weight shifting in bed to complete dressing - min for LE dressing, ambulating 60-80 ft with w/c at SBA, standing for 30 seconds. Pt reports his right knee needs replaced therefore, not a strong leg to bear weight. Explained Medicare approved 16 days, EDC date 05/07. Pt requires a sleep study at [place]. Nursing to schedule. Pt completed Medicaid application - faxed to [facility]. Pt to provide SW with SNF preferences to refer to for DC. Will ReTeam next week. Will continue to follow. KD BarneyW
[2020-04-25] MEDS: Linezolid 600 MG 600 MG/300 ML BAG 200 MG IV ×2 (11:11→22:56)
[2020-04-25] MEDS: 0.9% Saline Lock 10 ML Syringe IV ×2 (11:13→22:51)
[2020-04-25 11:51] LABS: Bedside Glucose 324 mg/dL (70-110)
--- NOTE | 2020-04-25 12:34 | PCM.PN.BLA ---
Progress Note Andrei was seen on team rounds today. There was no one to participate in rounds by telephone. Afebrile VSS Maintaining appropriate oxygen saturation on RA Oral intake is good Discussed with nursing - no problems that need addressed Reviewed the PT/OT notes Medication list reviewed. Andrei was started on IV Zyvox by Dr. Lundy and there is no note saying why and pt is asking me why? Blood sugar record was reviewed. BS's are not controlled with the increases in the insulin yesterday, blood sugars were in the high 200s and low 300s all day yesterday. His fasting blood sugar today is 246 and the at bedtime blood sugar was 279. His blood sugar at lunch today was 324. He has a lot of insulin resistance. We had another talk about eating sweets brought in by family. He is trying.....he eats as a comfort His pain is adequately controlled. No bowel problems. He fatigues easily with therapy Alert, oriented x3, appropriate, no apparent distress Lungs-diminished but clear to auscultation Heart-regular rate and rhythm but very distant Abdomen-soft, nontender, normal bowel sounds present No edema of the right ankle Intertrigo which is being treated with nystatin powder but no other rashes The incision of the left stump is intact with no periwound erythema and no discharge. The drain is still in place. Impressions 1. debility due to L BKA 2. DM II - uncontrolled 3. HTN 4. infection? Will need to talk with Dr. Lundy to see why the Zyvox IV? Adjust insulin.........if the BS's continue to b high with the increases in the insulin regimen will consider consult with Dr. Odonnell to manage diabetes.......suspect he is going to need U-500 Inpatient E&M: [id number] Subs Hosp L2
[2020-04-25 16:46] LABS: Bedside Glucose 220 mg/dL (70-110)
[2020-04-25] MEDS: Insulin Lispro 100 UNIT/ML INSULN.PEN 20 UNIT SC (17:22)
[2020-04-25 19:27] VITALS: BP 112/57; PULSE 74; RESP 18; TEMP 36.9; O2SAT 95
[2020-04-25] MEDS: Senna/Docusate Sodium 1 Tablet 2 TABLET PO (20:09)
[2020-04-25 21:21] LABS: Bedside Glucose 269 mg/dL (70-110)
--- NOTE | 2020-04-25 22:16 | PN_ITS ---
Patient Problems: Active and Suspected Problems (Last Reviewed 04/22/20 @ 19:[address] Juhi Polk DO) Hyponatremia (Acute) Subjective: This 64-year-old diabetic male with other comorbidities was seen bedside today for right foot callus and long thickened toenails. He does not feel safe trimming these on his own and asked for help today. He has neuropathic with rest paresthesias and continued swelling. He had a recent left foot infection with sepsis during his last hospital admission. He is failed other limb salvage surgeries and wounds and therefore proceeded with a below the knee amputation. He is in the rehabilitation unit at [facility] at this time. He denies wounds, redness, or new injuries to the right lower extremity. - Physical Exam Vitals/I&O's: Vital Signs Temp Pulse Resp BP Pulse Ox 98.4 F 74 18 112/57 L 95 04/25/20 19:27 04/25/20 19:27 04/25/20 19:27 04/25/20 19:27 04/25/20 19:27 Oxygen Delivery Method Room Air Weight: 173.7 kg Body Mass Index (BMI) 55.9 Finger Stick Blood Glucose 190 Intake and Output for Last 24 Hours 04/23/20 04/24/20 04/25/20 23:59 23:59 23:59 Intake Total 1550 / 1550 / 186.25 / 186.25 Output Total 2880 / 2880 3645 / 3645 2345 / 2345 Balance -1330 / -1330 -1661.75 / -1661.75 -478.75 / -478.75 General: Alert, Oriented x3, Cooperative HEENT: Atraumatic Extremities: No cyanosis, Capillary Refill Less than 3 Seconds, No Calf Tenderness - Negative Addy and Latfi sign right lower extremity. Compartments remain soft to palpate, Diminished Peripheral Pulses - Diminished PT pulse right and palpable DP pulse right, - - Left below-knee amputation his dressing and drain in place without strikethrough Skin: - - Plantar medial first metatarsal head callus without some hemorrhagic tissue, bleeding, ulcer, or localized infection to right foot. His toenails on the right foot 1, 2, 3, 4, 5 very elongated, thick, dystrophic, with subungual debris. His skin is atrophic and hairless to the foot. There is no interdigital maceration or skin discontinuity to the right lower extremity Musculoskeletal: No Tenderness to Palpation of Joints or Extremities, Muscle Wasting, - - Decreased on the first metatarsal phalangeal joint range of motion consistent with hallux limitus. Gentle semi-reducible dorsal contraction of the lesser digits of the right foot are consistently hammertoes. Neurological: - - Lack of epicritic sensation to light touch is consistent with neuropathy status right foot Psych/Mental Status: Normal Affect, Appropriate Laboratory Results 04/25/20 06:57: POC Glucose 246 H 04/25/20 11:37: POC Glucose 324 H 04/25/20 16:05: POC Glucose 220 H 04/25/20 21:12: POC Glucose 269 H Current Medications Acetaminophen (Tylenol) 1,000 mg PO Q8 [facility] Last Admin: 04/25/20 13:20 Dose: 1,000 mg Documented by: Amlodipine Besylate (Norvasc) 2.5 mg PO DAILY [facility] Last Admin: 04/25/20 08:03 Dose: 2.5 mg Documented by: Ascorbic Acid (Vitamin C) 500 mg PO BIDCM [facility] Last Admin: 04/25/20 16:02 Dose: 500 mg Documented by: Bisacodyl (Dulcolax) 10 mg RECTAL .PRN X 1 PRN PRN Reason: Constipation Bupropion HCl (Wellbutrin Sr (150mg Tablets)) 150 mg PO BID [facility] Last Admin: 04/25/20 20:09 Dose: 150 mg Documented by: Duloxetine HCl (Cymbalta) 60 mg PO DAILY [facility] Last Admin: 04/25/20 08:01 Dose: 60 mg Documented by: Enoxaparin Sodium (Lovenox) 40 mg SC BID@0600,1800 [facility] Last Admin: 04/25/20 16:03 Dose: 40 mg Documented by: Fluticasone Propionate (Flonase Nasal [place]) 2 spray NASAL DAILY PRN PRN PRN Reason: SINUS CONGESTION Last Admin: 04/22/20 22:13 Dose: 2 sprays Documented by: Linezolid (Zyvox 600mg) 600 mg in 300 mls @ 200 mls/hr IV Q12 [facility] Last Infusion: 04/25/20 13:18 Dose: Infused Documented by: Sodium Chloride () 250 mls @ 15 mls/hr IV .[id number] PRN PRN Reason: Saline Flush Sodium Chloride () 250 mls @ 15 mls/hr IV .[id number] PRN PRN Reason: Additional IVPB Infusion Insulin Glargine (Lantus (Bkc)) 0 units SC 0800,1700 [facility] Last Admin: 04/25/20 16:06 Dose: 36 units Documented by: Insulin Human Lispro (Humalog Kwikpen (Bkc)) 0 unit SC TIDAC [facility]; Protocol Last Admin: 04/25/20 17:22 Dose: 6 u Documented by: Insulin Human Lispro (Humalog Kwikpen (Bkc)) 20 unit SC SUPPER [facility] Last Admin: 04/25/20 17:22 Dose: 20 u Documented by: Insulin Human Lispro (Humalog Kwikpen (Bkc)) 20 unit SC 0800 [facility] Insulin Human Lispro (Humalog Kwikpen (Bkc)) 16 unit SC DAILY@1200 [facility] Levothyroxine Sodium (Synthroid) 225 mcg PO DAILY@0600 [facility] Last Admin: 04/25/20 05:40 Dose: 225 mcg Documented by: Lisinopril (Zestril) 20 mg PO BID [facility] Last Admin: 04/25/20 20:09 Dose: 20 mg Documented by: Magnesium Hydroxide (Milk Of Magnesia) 30 ml PO .PRN X 1 PRN PRN Reason: Constipation Multivitamins (Multivitamin) 1 tablet PO DAILYCM [facility] Last Admin: 04/25/20 08:01 Dose: 1 tablet Documented by: Oxycodone HCl (Oxyir) 10 mg PO Q4H PRN PRN PRN Reason: Pain Score 6-10/10 Last Admin: 04/25/20 20:08 Dose: 10 mg Documented by: Pantoprazole Sodium (Protonix) 40 mg PO BID [facility] Last Admin: 04/25/20 20:09 Dose: 40 mg Documented by: Pramipexole Dihydrochloride (Mirapex) 0.125 mg PO BID [facility] Last Admin: 04/25/20 20:09 Dose: 0.125 mg Documented by: Senna/Docusate Sodium (Senokot-S, Jolly-Colace) 2 tablet PO BID [facility] Last Admin: 04/25/20 20:09 Dose: 2 tablet Documented by: Sodium Chloride () 10 - 40 ml IV UD PRN PRN Reason: SALINE FLUSH Last Admin: 04/25/20 11:13 Dose: 10 ml Documented by: Zinc Sulfate (Zinc Sulfate) 220 mg PO DAILYCM [facility] Last Admin: 04/25/20 08:01 Dose: 220 mg Documented by: Medical Necessity - Tobacco Use Smoking Status: Former smoker Tobacco Use: Non-smoker Assessment/Plan All Active Problems (Last Reviewed 04/22/20 @ 19:[address] Juhi Polk, DO) Hyponatremia (Acute) MRSA (methicillin resistant Staphylococcus aureus) infection (Acute) Sepsis (Resolved) Diabetic foot ulcer associated with type 2 diabetes mellitus (Acute) Acute renal failure (Resolved) COPD exacerbation (Resolved) Foot ulcer, left (Resolved) Hospital-acquired pneumonia (Resolved) Necrotizing fasciitis (Resolved) Non-ST elevated myocardial infarction (Resolved) Osteomyelitis of ankle or foot (Resolved) left foot neuropathic deep wound infection (Resolved) onychomycosis (right 1,2,3,4,5) diabetes with neuropathy callous (handley grade 0) right sub 1st metatarsal head Left below-knee amputation secondary to nonsalvageable left foot infection with sepsis Other comorbidities I reviewed this patient's case today. He is doing well status post left below- knee amputation with Dr. Lundy. I saw him today for his right lower extremity. His toenails were debrided on the right foot including 1, 2, 3, 4, and fifth digits with a nail nipper without incident. This was performed to reduce the length and thickness to reduce pressure, reduce risk of ulcer formation and inf ection formation. He understands this may be secondary to microtrauma or nail fungus. Regardless, he elects to proceed forward only with palliative care at this time. His callus was also debrided with a soft tissue nipper to reduce pressure. He was reassured no ulcer or infection is noted. Recommend he follows up in the outpatient setting in approximately 2 months for additional palliative care and foot risk assessment of the right lower extremity. At this time I also recommend he start the ordering and fitting process for extra-depth diabetic shoe with dual density Plastizote liner to reduce his chance of getting ulcer on the right foot. Medical management and rehabilitation progression per rehabilitation physician and surgeon are noted and appreciated. Please not hesitate to call if you have any questions. Sarah Soto DPM, [facility] [phone]
--- NOTE | 2020-04-25 22:23 | DCINST_ITS ---
Weight Bearing Status: Full weight bearing - right lower extremity with protective and supportive shoe. Use assistive device with left lower extremity recent surgery status per surgeon, Dr. Lundy) Call your doctor if your incision/area has: Increased Redness Call your doctor if you observe: Fever of 101 or Higher, Calf discomfort, - - new ulcer formation or pain Allergies/Adverse Reactions: Allergies No Known Allergies Allergy (Verified 04/22/20 06:17) Medications to take at Discharge Ropinirole HCl [Requip] 0.25 mg PO BID 08/17/16 enalapril maleate 20 mg tablet 20 mg PO BID 02/14/18 fluticasone propionate 50 mcg/actuation nasal spray,suspension 2 spray INTRANASAL DAILY PRN PRN 02/14/18 Amlodipine [Norvasc] 2.5 mg PO DAILY 03/21/20 Duloxetine HCl 60 mg PO DAILY 03/21/20 Omeprazole 40 mg PO BID 03/21/20 buPROPion SR [Wellbutrin SR (150mg tablets)] 150 mg PO BID 03/21/20 Acetaminophen [Tylenol] 1,000 mg PO Q8 04/21/20 Cefdinir [Omnicef [equiv]] 300 mg PO Q12 04/21/20 Insulin Glargine [Lantus SoloStar Pen] 30 units SUBCUT BID 04/21/20 Insulin Lispro [Humalog KwikPen] 15 unit SUBCUT TIDAC 04/21/20 Insulin Lispro [Humalog KwikPen] See Protocol SUBCUT ACHS 04/21/20 Levothyroxine [Synthroid] 225 mcg PO DAILY@0600 04/21/20 Oxycodone [Oxyir] 10 mg PO Q4H PRN PRN 7 Days tab 04/21/20 Primary Care Physician: Maico Jonse MD [Primary Care Provider] - Test Results: Test results from this visit will be discussed in further detail at your follow- up appointment, if applicable. Please Follow Up With: Dr. Soto or Dr[facility] When: 2 month for palliation care and to order diabetic shoes. Call [phone] Proposed Discharge Date: 04/30/20
[2020-04-26] MEDS: 0.9% Saline Lock 10 ML Syringe IV (01:03)
[2020-04-26] MEDS: oxyCODONE 5 MG Tablet 10 MG PO ×5 (01:08→23:23)
[2020-04-26] MEDS: Acetaminophen 500 MG Tablet 1000 MG PO ×3 (06:31→22:21)
[2020-04-26] MEDS: Levothyroxine 75 MCG Tablet 225 MCG PO (06:32)
[2020-04-26] MEDS: Enoxaparin 40 MG/0.4 ML Syringe SC ×2 (06:32→16:59)
[2020-04-26 06:56] LABS: Bedside Glucose 294 mg/dL (70-110)
[2020-04-26 07:14] VITALS: O2SAT 92
[2020-04-26 08:07] VITALS: BP 134/69; PULSE 72; RESP 16; TEMP 36.6; O2SAT 98
[2020-04-26] MEDS: Insulin Lispro 100 UNIT/ML INSULN.PEN SC ×3 (08:53→16:59)
[2020-04-26] MEDS: Pramipexole Di-HCl 0.125 MG Tablet PO ×2 (08:55→22:22)
[2020-04-26] MEDS: Lisinopril 20 MG Tablet PO ×2 (08:55→23:15)
[2020-04-26] MEDS: buPROPion (SR) 150 MG Tablet.SA PO ×2 (08:55→22:18)
[2020-04-26] MEDS: Pantoprazole Sodium 40 MG Tablet PO ×2 (08:55→22:18)
[2020-04-26] MEDS: amLODIPine 2.5 MG Tablet PO (08:55)
[2020-04-26] MEDS: DULoxetine Hcl 60 MG Capsule PO (08:55)
[2020-04-26] MEDS: Ascorbic Acid 500 MG Tablet PO ×2 (08:55→16:58)
[2020-04-26] MEDS: Multivitamins,Therapeutic Tablet 1 TABLET PO (08:55)
[2020-04-26] MEDS: Insulin Lispro 100 UNIT/ML INSULN.PEN 20 UNIT SC ×3 (08:56→23:16)
[2020-04-26 11:26] LABS: Bedside Glucose 309 mg/dL (70-110)
[2020-04-26] MEDS: Linezolid 600 MG 600 MG/300 ML BAG 200 MG IV (11:27)
[2020-04-26] MEDS: Insulin Lispro 100 UNIT/ML INSULN.PEN 16 UNIT SC (11:30)
[2020-04-26] MEDS: Insulin Lispro 100 UNIT/ML INSULN.PEN 15 UNIT SC (11:58)
--- NOTE | 2020-04-26 13:59 | NURSING ---
mikala and dr smith lobsterman in to do drsg change and look at stump incision. iv atb dc'd per dr cardona new order. sl dc'd .
--- NOTE | 2020-04-26 14:17 | NURSING ---
wound photo: left BKA
--- NOTE | 2020-04-26 14:31 | PN.SURG_ITS ---
Patient Problems: Active and Suspected Problems (Last Reviewed 04/22/20 @ 19:[address] Juhi Polk DO) Hyponatremia (Acute) Subjective: Post op day #7 - Physical Exam Vitals/I&O's: Vital Signs Temp Pulse Resp BP Pulse Ox 97.9 F 72 16 134/69 H 98 04/26/20 08:07 04/26/20 08:07 04/26/20 08:07 04/26/20 08:07 04/26/20 08:07 Oxygen Delivery Method Room Air Weight: 382 lb 15.087 oz Body Mass Index (BMI) 55.9 Finger Stick Blood Glucose 190 Intake and Output for Last 24 Hours 04/24/20 04/25/20 04/26/20 23:59 23:59 23:59 Intake Total / 1866.25 / 186.25 1191.75 / 1191.75 Output Total 3645 / 3645 2375 / 2375 2600 / 2600 Balance -1661.75 / -1661.75 -508.75 / -508.75 -1408.25 / -1408.25 General: Alert, Oriented x3, Cooperative HEENT: Atraumatic Oral: Moist Mucosa Lungs: Normal air movement Abdomen: Obese Extremities: Capillary Refill Less than 3 Seconds, Edema - Left BKA stump Skin: Incision - Left BKA stump incision is dry and and intact. Sutures are intact. Leonie drain intact, draining serosanguineous drainage. Musculoskeletal: No Tenderness to Palpation of Joints or Extremities Neurological: Neuro grossly intact Psych/Mental Status: Normal Affect, Appropriate Laboratory Results 04/25/20 16:05: POC Glucose 220 H 04/25/20 21:12: POC Glucose 269 H 04/26/20 06:42: POC Glucose 294 H 04/26/20 11:21: POC Glucose 309 H Current Medications Acetaminophen (Tylenol) 1,000 mg PO Q8 [facility] Last Admin: 04/26/20 13:41 Dose: 1,000 mg Documented by: Amlodipine Besylate (Norvasc) 2.5 mg PO DAILY [facility] Last Admin: 04/26/20 08:55 Dose: 2.5 mg Documented by: Ascorbic Acid (Vitamin C) 500 mg PO BIDCM [facility] Last Admin: 04/26/20 08:55 Dose: 500 mg Documented by: Bisacodyl (Dulcolax) 10 mg RECTAL .PRN X 1 PRN PRN Reason: Constipation Bupropion HCl (Wellbutrin Sr (150mg Tablets)) 150 mg PO BID [facility] Last Admin: 04/26/20 08:55 Dose: 150 mg Documented by: Duloxetine HCl (Cymbalta) 60 mg PO DAILY [facility] Last Admin: 04/26/20 08:55 Dose: 60 mg Documented by: Enoxaparin Sodium (Lovenox) 40 mg SC BID@0600,1800 [facility] Last Admin: 04/26/20 06:32 Dose: 40 mg Documented by: Fluticasone Propionate (Flonase Nasal [place]) 2 spray NASAL DAILY PRN PRN PRN Reason: SINUS CONGESTION Last Admin: 04/22/20 22:13 Dose: 2 sprays Documented by: Sodium Chloride () 250 mls @ 15 mls/hr IV .[id number] PRN PRN Reason: Saline Flush Last Infusion: 04/26/20 13:55 Dose: Infused Documented by: Insulin Glargine (Lantus (Bkc)) 0 units SC 0800,1700 [facility] Last Admin: 04/26/20 08:56 Dose: 36 units Documented by: Insulin Human Lispro (Humalog Kwikpen (Bkc)) 0 unit SC TIDAC [facility]; Protocol Last Admin: 04/26/20 11:30 Dose: 9 u Documented by: Insulin Human Lispro (Humalog Kwikpen (Bkc)) 20 unit SC SUPPER [facility] Last Admin: 04/25/20 17:22 Dose: 20 u Documented by: Insulin Human Lispro (Humalog Kwikpen (Bkc)) 20 unit SC 0800 [facility] Last Admin: 04/26/20 08:56 Dose: 20 u Documented by: Insulin Human Lispro (Humalog Kwikpen (Bkc)) 16 unit SC DAILY@1200 [facility] Last Admin: 04/26/20 11:30 Dose: 16 u Documented by: Levothyroxine Sodium (Synthroid) 225 mcg PO DAILY@0600 [facility] Last Admin: 04/26/20 06:32 Dose: 225 mcg Documented by: Lisinopril (Zestril) 20 mg PO BID [facility] Last Admin: 04/26/20 08:55 Dose: 20 mg Documented by: Magnesium Hydroxide (Milk Of Magnesia) 30 ml PO .PRN X 1 PRN PRN Reason: Constipation Multivitamins (Multivitamin) 1 tablet PO DAILYCM [facility] Last Admin: 04/26/20 08:55 Dose: 1 tablet Documented by: Oxycodone HCl (Oxyir) 10 mg PO Q4H PRN PRN PRN Reason: Pain Score 6-10/10 Last Admin: 04/26/20 11:13 Dose: 10 mg Documented by: Pantoprazole Sodium (Protonix) 40 mg PO BID [facility] Last Admin: 04/26/20 08:55 Dose: 40 mg Documented by: Pramipexole Dihydrochloride (Mirapex) 0.125 mg PO BID [facility] Last Admin: 04/26/20 08:55 Dose: 0.125 mg Documented by: Senna/Docusate Sodium (Senokot-S, Jolly-Colace) 2 tablet PO BID [facility] Last Admin: 04/26/20 09:00 Dose: Not Given Documented by: Sodium Chloride () 10 - 40 ml IV UD PRN PRN Reason: SALINE FLUSH Last Admin: 04/26/20 01:03 Dose: 10 ml Documented by: Zinc Sulfate (Zinc Sulfate) 220 mg PO DAILYCM [facility] Last Admin: 04/26/20 11:06 Dose: 220 mg Documented by: Medical Necessity - Tobacco Use Smoking Status: Former smoker Tobacco Use: Non-smoker Assessment/Plan All Active Problems (Last Reviewed 04/22/20 @ 19:[address] Juhi Polk, DO) Hyponatremia (Acute) MRSA (methicillin resistant Staphylococcus aureus) infection (Acute) Sepsis (Resolved) Diabetic foot ulcer associated with type 2 diabetes mellitus (Acute) Acute renal failure (Resolved) COPD exacerbation (Resolved) Foot ulcer, left (Resolved) Hospital-acquired pneumonia (Resolved) Necrotizing fasciitis (Resolved) Non-ST elevated myocardial infarction (Resolved) Osteomyelitis of ankle or foot (Resolved) left foot neuropathic deep wound infection (Resolved) 1. Nonhealing infected diabetic ulcers left foot. 2. Sepsis 3. MRSA 4. Diabetic neuropathy 5. Obesity 6. s/p left below knee amputation 7. Recent fall since surgery Incision is dry and intact. Mild swelling present. No clinical evidence of hematoma after his fall last week. Dressing changed. MAURILIO wrap for compression. Operative culture show Streptococcus agalactiae, Staphylococcus simulans, and Corynebacterium striatum. He had been treated with Cefdinir when he was inpatient and then started on Linezolid a few days ago. ID consulted and stopped all antibiotics. Prealbumin was 9.1. Encouraged nutritional supplementation with protein to help with the healing process. Will consider removing Leonie drain over the next week. He will follow up at the wound center after he discharged from Rehab unit.
--- NOTE | 2020-04-26 14:56 | PN.ID_ITS ---
Patient Problems: Active and Suspected Problems (Last Reviewed 04/22/20 @ 19:[address] Juhi Pokl, DO) Hyponatremia (Acute) Subjective: Feeling well, no issues with incision, no fever - Physical Exam Vitals/I&O's: Vital Signs Temp Pulse Resp BP Pulse Ox 97.9 F 72 16 134/69 H 98 04/26/20 08:07 04/26/20 08:07 04/26/20 08:07 04/26/20 08:07 04/26/20 08:07 Oxygen Delivery Method Room Air Weight: 173.7 kg Body Mass Index (BMI) 55.9 Finger Stick Blood Glucose 190 Intake and Output for Last 24 Hours 04/24/20 04/25/20 04/26/20 23:59 23:59 23:59 Intake Total / 1866.25 / 186.25 1191.75 / 1191.75 Output Total 3645 / 3645 2375 / 2375 2600 / 2600 Balance -1661.75 / -1661.75 -508.75 / -508.75 -1408.25 / -1408.25 General: Alert, Cooperative, No apparent distress Lungs: Clear to auscultation, Normal air movement Cardiovascular: Regular rate, Regular Rhythm Abdomen: Soft, Non Tender, Non-Distended Skin: Incision - no redness, no pain, drain in place at L BKA site Laboratory Results 04/25/20 16:05: POC Glucose 220 H 04/25/20 21:12: POC Glucose 269 H 04/26/20 06:42: POC Glucose 294 H 04/26/20 11:21: POC Glucose 309 H Current Medications Acetaminophen (Tylenol) 1,000 mg PO Q8 [facility] Last Admin: 04/26/20 13:41 Dose: 1,000 mg Documented by: Amlodipine Besylate (Norvasc) 2.5 mg PO DAILY [facility] Last Admin: 04/26/20 08:55 Dose: 2.5 mg Documented by: Ascorbic Acid (Vitamin C) 500 mg PO BIDCM [facility] Last Admin: 04/26/20 08:55 Dose: 500 mg Documented by: Bisacodyl (Dulcolax) 10 mg RECTAL .PRN X 1 PRN PRN Reason: Constipation Bupropion HCl (Wellbutrin Sr (150mg Tablets)) 150 mg PO BID [facility] Last Admin: 04/26/20 08:55 Dose: 150 mg Documented by: Duloxetine HCl (Cymbalta) 60 mg PO DAILY [facility] Last Admin: 04/26/20 08:55 Dose: 60 mg Documented by: Enoxaparin Sodium (Lovenox) 40 mg SC BID@0600,1800 [facility] Last Admin: 04/26/20 06:32 Dose: 40 mg Documented by: Fluticasone Propionate (Flonase Nasal [place]) 2 spray NASAL DAILY PRN PRN PRN Reason: SINUS CONGESTION Last Admin: 04/22/20 22:13 Dose: 2 sprays Documented by: Sodium Chloride () 250 mls @ 15 mls/hr IV .[id number] PRN PRN Reason: Saline Flush Last Infusion: 04/26/20 13:55 Dose: Infused Documented by: Insulin Glargine (Lantus (Bkc)) 0 units SC 0800,1700 [facility] Last Admin: 04/26/20 08:56 Dose: 36 units Documented by: Insulin Human Lispro (Humalog Kwikpen (Bkc)) 0 unit SC TIDAC [facility]; Protocol Last Admin: 04/26/20 11:30 Dose: 9 u Documented by: Insulin Human Lispro (Humalog Kwikpen (Bkc)) 20 unit SC SUPPER [facility] Last Admin: 04/25/20 17:22 Dose: 20 u Documented by: Insulin Human Lispro (Humalog Kwikpen (Bkc)) 20 unit SC 0800 [facility] Last Admin: 04/26/20 08:56 Dose: 20 u Documented by: Insulin Human Lispro (Humalog Kwikpen (Bkc)) 16 unit SC DAILY@1200 [facility] Last Admin: 04/26/20 11:30 Dose: 16 u Documented by: Levothyroxine Sodium (Synthroid) 225 mcg PO DAILY@0600 [facility] Last Admin: 04/26/20 06:32 Dose: 225 mcg Documented by: Lisinopril (Zestril) 20 mg PO BID [facility] Last Admin: 04/26/20 08:55 Dose: 20 mg Documented by: Magnesium Hydroxide (Milk Of Magnesia) 30 ml PO .PRN X 1 PRN PRN Reason: Constipation [facility]) [address] [facility] [facility] Last Admin: 04/26/20 08:55 Dose: 1 tablet Documented by: Oxycodone HCl (Oxyir) 10 mg PO Q4H PRN PRN PRN Reason: Pain Score 6-10/10 Last Admin: 04/26/20 11:13 Dose: 10 mg Documented by: Pantoprazole Sodium (Protonix) 40 mg PO BID [facility] Last Admin: 04/26/20 08:55 Dose: 40 mg Documented by: Pramipexole Dihydrochloride (Mirapex) 0.125 mg PO BID [facility] Last Admin: 04/26/20 08:55 Dose: 0.125 mg Documented by: Senna/Docusate Sodium (Senokot-S, Jolly-Colace) 2 tablet PO BID [facility] Last Admin: 04/26/20 09:00 Dose: Not Given Documented by: Sodium Chloride () 10 - 40 ml IV UD PRN PRN Reason: SALINE FLUSH Last Admin: 04/26/20 01:03 Dose: 10 ml Documented by: Zinc Sulfate (Zinc Sulfate) 220 mg PO DAILYCM [facility] Last Admin: 04/26/20 11:06 Dose: 220 mg Documented by: Medical Necessity - Tobacco Use Smoking Status: Former smoker Tobacco Use: Non-smoker Route of nutrition/ use of supplements: [] Nutritional Intake: [] IV Site: [] Abreu Catheter: [] - Assessment/Plan Antibiotics: [] Assessment/Plan: [] Active and Suspected Problems (Last Reviewed 04/22/20 @ 19:[address] Juhi Polk, DO) Hyponatremia (Acute) Overall much improved s/p BKA. Will stop linezolid today and monitor off of abx. Will follow as needed, d/w Dr. Polk.
[2020-04-26 16:35] LABS: Bedside Glucose 175 mg/dL (70-110)
--- NOTE | 2020-04-26 18:11 | PCM.CONS.GEN ---
Reason for Consult Reason for Consultation: Diabetes mellitus type 2, insulin requiring, uncontrolled History of Present Illness: The patient is a 64 year old Male admitted for rehabilitation s/p L BKA. He has longstanding uncontrolled type 2 DM on insulin. Multiple complications including polyneuropathy and PVD leading to amputation, stage 3 CKD, likely retinopathy, and CAD. He is telling me that he has been taking Levemir 160 units bid and Novolog 60 units TID with meals. This is different from his outpatient records. Blood sugar control is important now for healing and to delay progression of his multiple problems. His appetite is good. He ate all of his dinner and nursing reports he is eating all of his meals and extra snacks brought by friends/family. Outside food has been discontinued.[] t Past Medical History Past Medical History (Chronic Problems): Chronic Problems (Last Reviewed 04/22/20 @ 19:[address] Juhi Polk, ) Super obesity (Chronic) BMI is 54.9 and that is without the leg that was amputated Chronic renal failure, stage 3 (moderate) (Chronic) Pulmonary hypertension (Chronic) Grade I diastolic dysfunction (Chronic) Enlarged RV (right ventricle) (Chronic) Osteoarthritis (Chronic) Ulcer of left foot with necrosis of muscle (Chronic) Alcoholism in recovery (Chronic) COPD (chronic obstructive pulmonary disease) (Chronic) Diabetic neuropathy (Chronic) he has numbness in the feet and the tips of the fingers CAD (coronary artery disease) (Chronic) Diabetes mellitus (Chronic) Hypothyroidism (Chronic) Reports has been more tired and lacking interest in doing things at this time. He feels he is gaining more weight and this he does not want. Rechech thyroid levels. CECILE treated with BiPAP (Chronic) PATIENT HAS OWN MACHINE. He feels he is doing well HTN (hypertension) (Chronic) Is on an paola inhibitor and tolerating well. BP 124/85 Uncontrolled diabetes mellitus (Chronic) BS's uncontrolled due to excess calories an non-compliance with diet Non-compliance (Chronic) Hyperlipidemia (Chronic) No recent labs available at time of visit. He reports he is not willing to use a statin. Will obtain labs from [facility] provider. No medical records available at time of visit. Venous stasis dermatitis (Chronic) Diabetic neuropathy associated with type 2 diabetes mellitus (Chronic) Charcot's joint of foot due to diabetes (Chronic) non-complaince with non-wt bearing and now has a BKA Medical History: Medical History (Last Reviewed 04/22/20 @ 19:[address] Juhi Polk, DO) Alcohol abuse F10.10 Anxiety and depression F41.9, F32.9 Arthritis M19.90 COPD (chronic obstructive pulmonary disease) J44.9 Diabetes type 2, uncontrolled E11.65 dx : 1999 last exacerbation : dka : never hypoglycemic episode : never er visit : never Drug abuse F19.10 GERD (gastroesophageal reflux disease) K21.9 GI problem R19.8 H/O transfusion of whole blood Z92.89 Hearing problem H91.90 High cholesterol E78.00 High triglycerides E78.1 CECILE (obstructive sleep apnea) G47.33 Pneumonia J18.9 Recurrent infections B99.9 Thyroid disorder E07.9 Vision problems H54.7 Vitamin deficiency E56.9 prostate problems HTN (hypertension) I10 Allergies No Known Allergies Allergy (Verified 04/22/20 06:17) Home Medications: Ambulatory Orders Medication Instructions Recorded Ropinirole HCl [Requip] 0.25 mg PO BID 08/17/16 enalapril maleate 20 mg tablet 20 mg PO BID 02/14/18 fluticasone propionate 50 2 spray INTRANASAL DAILY PRN PRN 02/14/18 mcg/actuation nasal spray,suspension Amlodipine [Norvasc] 2.5 mg PO DAILY 03/21/20 Duloxetine HCl 60 mg PO DAILY 03/21/20 Omeprazole 40 mg PO BID 03/21/20 buPROPion SR [Wellbutrin SR (150mg 150 mg PO BID 03/21/20 tablets)] Acetaminophen [Tylenol] 1,000 mg PO Q8 04/21/20 Cefdinir [Omnicef [equiv]] 300 mg PO Q12 04/21/20 Insulin Glargine [Lantus SoloStar 30 units SUBCUT BID 04/21/20 Pen] Insulin Lispro [Humalog KwikPen] 15 unit SUBCUT TIDAC 04/21/20 Insulin Lispro [Humalog KwikPen] See Protocol SUBCUT ACHS 04/21/20 Levothyroxine [Synthroid] 225 mcg PO DAILY@0600 04/21/20 Oxycodone [Oxyir] 10 mg PO Q4H PRN PRN 7 Days tab 04/21/20 Surgical History: Surgical History (Last Reviewed 04/22/20 @ 19:[address] Juhi Polk DO) 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 Psychiatric History: Anxiety, Bipolar - his mother related to me that he is bipolar, Depression Lives: With Family - he lives with his mother but she is currently in [place] with her dtr recovering from, - - he lives in the basement of his mothers house however, she is currently staying with her dtr in [place] Smoking Status: Former smoker Tobacco Use: Non-smoker Alcohol: Sober Drugs: - - illicit drug use in the past but, denies current use - *Family History Paternal Family History: Family History (Last Reviewed 04/22/20 @ 20:[address] Juhi Polk DO) Mother Arthritis Diabetes Hypertension High cholesterol Osteoporosis Sister Breast cancer Cancer High cholesterol Brother Lung cancer High cholesterol Father Hypertension High cholesterol History Items: Heart Disease, Hypertension Maternal Family History: Family History (Last Reviewed 04/22/20 @ 20:[address] Juhi Polk DO) Mother Arthritis Diabetes Hypertension High cholesterol Osteoporosis Sister Breast cancer Cancer High cholesterol Brother Lung cancer High cholesterol Father Hypertension High cholesterol History Items: Diabetes Sibling Family History: Family History (Last Reviewed 04/22/20 @ 20:[address] Juhi Polk DO) Mother Arthritis Diabetes Hypertension High cholesterol Osteoporosis Sister Breast cancer Cancer High cholesterol Brother Lung cancer High cholesterol Father Hypertension High cholesterol History Items: Cancer - sister with breast, brother of lung cancer Review of Systems Constitutional: Denies: Chills, Fever, Weight Change Eyes: Reports: Blurred vision HEENT: Denies: Head Aches, Sinus Congestion, Sinus Drainage Cardiovascular: Denies: Chest Pain, Palpitations Respiratory: Denies: Cough, Shortness of breath at rest, Sputum production Gastrointestinal: Denies: Abdominal Pain, Nausea, Vomiting Genitourinary: Denies: Dysuria Neurological: Reports: Balance problems, Incoordination, Numbness Patient Problems: Active and Suspected Problems (Last Reviewed 04/22/20 @ 19:[address] Juhi Polk DO) Hyponatremia (Acute) - Physical Exam Vitals/I&O's: Vital Signs Temp Pulse Resp BP Pulse Ox 97.9 F 72 16 134/69 H 98 04/26/20 08:07 04/26/20 08:07 04/26/20 08:07 04/26/20 08:07 04/26/20 08:07 Oxygen Delivery Method Room Air Weight: 382 lb 15.087 oz Body Mass Index (BMI) 55.9 Finger Stick Blood Glucose 190 Intake and Output for Last 24 Hours 04/24/20 04/25/20 04/26/20 23:59 23:59 23:59 Intake Total / 1866.25 / 186.25 2311.75 / 2311.75 Output Total 3645 / 3645 2375 / 2375 3040 / 3040 Balance -1661.75 / -1661.75 -508.75 / -508.75 -728.25 / -728.25 General: Alert, Oriented x3, Cooperative, Well nourished HEENT: Atraumatic, PERRLA, EOMI, Normocephalic Oral: Moist Mucosa Neck: Supple Lungs: Diminished Cardiovascular: Regular rate, Regular Rhythm Abdomen: Bowel Sounds Present, Obese Extremities: - - L BKA Neurological: Cranial nerves II-XII grossly intact Psych/Mental Status: Normal Affect Laboratory Results 04/25/20 21:12: POC Glucose 269 H 04/26/20 06:42: POC Glucose 294 H 04/26/20 11:21: POC Glucose 309 H 04/26/20 16:29: POC Glucose 175 H Current Medications Acetaminophen (Tylenol) 1,000 mg PO Q8 [facility] Last Admin: 04/26/20 13:41 Dose: 1,000 mg Documented by: Amlodipine Besylate (Norvasc) 2.5 mg PO DAILY [facility] Last Admin: 04/26/20 08:55 Dose: 2.5 mg Documented by: Ascorbic Acid (Vitamin C) 500 mg PO BIDCM [facility] Last Admin: 04/26/20 16:58 Dose: 500 mg Documented by: Bisacodyl (Dulcolax) 10 mg RECTAL .PRN X 1 PRN PRN Reason: Constipation Bupropion HCl (Wellbutrin Sr (150mg Tablets)) 150 mg PO BID [facility] Last Admin: 04/26/20 08:55 Dose: 150 mg Documented by: Duloxetine HCl (Cymbalta) 60 mg PO DAILY [facility] Last Admin: 04/26/20 08:55 Dose: 60 mg Documented by: Enoxaparin Sodium (Lovenox) 40 mg SC BID@0600,1800 [facility] Last Admin: 04/26/20 16:59 Dose: 40 mg Documented by: Fluticasone Propionate (Flonase Nasal [place]) 2 spray NASAL DAILY PRN PRN PRN Reason: SINUS CONGESTION Last Admin: 04/22/20 22:13 Dose: 2 sprays Documented by: Sodium Chloride () 250 mls @ 15 mls/hr IV .[id number] PRN PRN Reason: Saline Flush Last Infusion: 04/26/20 13:55 Dose: Infused Documented by: Insulin Glargine (Lantus (Bkc)) 0 units SC 0800,1700 [facility] Last Admin: 04/26/20 16:58 Dose: 36 units Documented by: Insulin Human Lispro (Humalog Kwikpen (Bkc)) 0 unit SC TIDAC [facility]; Protocol Last Admin: 04/26/20 16:59 Dose: 3 u Documented by: Insulin Human Lispro (Humalog Kwikpen (Bkc)) 20 unit SC SUPPER [facility] Last Admin: 04/26/20 16:58 Dose: 20 u Documented by: Insulin Human Lispro (Humalog Kwikpen (Bkc)) 20 unit SC 0800 [facility] Last Admin: 04/26/20 08:56 Dose: 20 u Documented by: Insulin Human Lispro (Humalog Kwikpen (Bkc)) 16 unit SC DAILY@1200 [facility] Last Admin: 04/26/20 11:30 Dose: 16 u Documented by: Levothyroxine Sodium (Synthroid) 225 mcg PO DAILY@0600 [facility] Last Admin: 04/26/20 06:32 Dose: 225 mcg Documented by: Lisinopril (Zestril) 20 mg PO BID [facility] Last Admin: 04/26/20 08:55 Dose: 20 mg Documented by: Magnesium Hydroxide (Milk Of Magnesia) 30 ml PO .PRN X 1 PRN PRN Reason: Constipation Multivitamins (Multivitamin) 1 tablet PO DAILYCM [facility] Last Admin: 04/26/20 08:55 Dose: 1 tablet Documented by: Oxycodone HCl (Oxyir) 10 mg PO Q4H PRN PRN PRN Reason: Pain Score 6-10/10 Last Admin: 04/26/20 11:13 Dose: 10 mg Documented by: Pantoprazole Sodium (Protonix) 40 mg PO BID [facility] Last Admin: 04/26/20 08:55 Dose: 40 mg Documented by: Pramipexole Dihydrochloride (Mirapex) 0.125 mg PO BID [facility] Last Admin: 04/26/20 08:55 Dose: 0.125 mg Documented by: Senna/Docusate Sodium (Senokot-S, Jolly-Colace) 2 tablet PO BID [facility] Last Admin: 04/26/20 09:00 Dose: Not Given Documented by: Sodium Chloride () 10 - 40 ml IV UD PRN PRN Reason: SALINE FLUSH Last Admin: 04/26/20 01:03 Dose: 10 ml Documented by: Zinc Sulfate (Zinc Sulfate) 220 mg PO DAILYCM [facility] Last Admin: 04/26/20 11:06 Dose: 220 mg Documented by: Assessment/Plan All Active Problems (Last Reviewed 04/22/20 @ 19:[address] Juhi Polk, ) Hyponatremia (Acute) MRSA (methicillin resistant Staphylococcus aureus) infection (Acute) Sepsis (Resolved) Diabetic foot ulcer associated with type 2 diabetes mellitus (Acute) Acute renal failure (Resolved) COPD exacerbation (Resolved) Foot ulcer, left (Resolved) Hospital-acquired pneumonia (Resolved) Necrotizing fasciitis (Resolved) Non-ST elevated myocardial infarction (Resolved) Osteomyelitis of ankle or foot (Resolved) left foot neuropathic deep wound infection (Resolved) Diabetes Mellitus type 2, longstanding insulin use, polyneuropathy, stage 3 CKD, PVD, CAD Will adjust insulin to obtain improved blood sugar control. I will continue to provide diabetes education and encourage him to improve efforts to control his blood sugars, slow progression of complications, improve his diet, and generally improve his overall health. Inpatient E&M: 40815 Init Hosp L3
[2020-04-26 19:32] VITALS: BP 115/55; PULSE 76; RESP 18; TEMP 36.6; O2SAT 95
[2020-04-26 21:41] LABS: Bedside Glucose 282 mg/dL (70-110)
[2020-04-26] MEDS: Senna/Docusate Sodium 1 Tablet 2 TABLET PO (22:26)
[2020-04-27 02:01] LABS: Bedside Glucose 188 mg/dL (70-110)
[2020-04-27] MEDS: Insulin Lispro 100 UNIT/ML INSULN.PEN SC ×3 (02:08→17:21)
--- NOTE | 2020-04-27 02:14 | NURSING ---
blood sugar 188 at 0200, 3units novolog sliding scale coverage given
[2020-04-27 06:20] LABS: Bedside Glucose 197 mg/dL (70-110)
[2020-04-27] MEDS: Acetaminophen 500 MG Tablet 1000 MG PO ×3 (06:51→21:36)
[2020-04-27] MEDS: Levothyroxine 75 MCG Tablet 225 MCG PO (06:51)
[2020-04-27] MEDS: Enoxaparin 40 MG/0.4 ML Syringe SC ×2 (06:51→17:23)
[2020-04-27] MEDS: Insulin Lispro 100 UNIT/ML INSULN.PEN 25 UNIT SC (08:09)
[2020-04-27] MEDS: Multivitamins,Therapeutic Tablet 1 TABLET PO (08:14)
[2020-04-27] MEDS: Ascorbic Acid 500 MG Tablet PO ×2 (08:14→17:22)
[2020-04-27] MEDS: DULoxetine Hcl 60 MG Capsule PO (08:14)
[2020-04-27] MEDS: Pramipexole Di-HCl 0.125 MG Tablet PO ×2 (08:15→21:36)
[2020-04-27] MEDS: amLODIPine 2.5 MG Tablet PO (08:15)
[2020-04-27] MEDS: Pantoprazole Sodium 40 MG Tablet PO ×2 (08:15→21:37)
[2020-04-27] MEDS: buPROPion (SR) 150 MG Tablet.SA PO ×2 (08:16→21:36)
[2020-04-27] MEDS: Lisinopril 20 MG Tablet PO ×2 (08:16→21:36)
[2020-04-27] MEDS: oxyCODONE 5 MG Tablet 10 MG PO ×4 (08:22→21:40)
[2020-04-27 09:55] VITALS: BP 133/57; PULSE 71; RESP 18; TEMP 36.8; O2SAT 96
[2020-04-27 11:46] LABS: Bedside Glucose 254 mg/dL (70-110)
--- NOTE | 2020-04-27 11:54 | NURSING ---
Dr. Odonnell called with report to blood sugar over 200. Order received 60 u novolog x 1 now and otherwise starting at supper tonight insulin will be increased to 35 u with meals.
[2020-04-27] MEDS: Insulin Lispro 100 UNIT/ML INSULN.PEN 60 UNIT SC (12:12)
[2020-04-27] MEDS: Insulin Lispro 100 UNIT/ML INSULN.PEN 35 UNIT SC (17:20)
[2020-04-27 17:31] LABS: Bedside Glucose 191 mg/dL (70-110)
[2020-04-27 19:42] VITALS: BP 160/82; PULSE 85; RESP 16; TEMP 36.4; O2SAT 96
[2020-04-27 21:45] LABS: Bedside Glucose 213 mg/dL (70-110)
--- NOTE | 2020-04-27 21:45 | NURSING ---
DR WERNER CONTACTED VIA PHONE TO INFORM OF PT'S BLOOD SUGAR READING OF 213 OBTAINED AT 2130 TODAY. ORDERS RECEIVED.
[2020-04-27] MEDS: Insulin Lispro 100 UNIT/ML INSULN.PEN 20 UNIT SC (21:57)
[2020-04-28] MEDS: oxyCODONE 5 MG Tablet 10 MG PO ×5 (03:01→22:11)
[2020-04-28] MEDS: Acetaminophen 500 MG Tablet 1000 MG PO ×3 (05:22→21:48)
[2020-04-28] MEDS: Levothyroxine 75 MCG Tablet 225 MCG PO (05:23)
[2020-04-28] MEDS: Enoxaparin 40 MG/0.4 ML Syringe SC ×2 (05:23→17:25)
[2020-04-28 07:00] VITALS: BP 136/66; PULSE 83; RESP 16; TEMP 36.5; O2SAT 99
--- NOTE | 2020-04-28 07:04 | NURSING ---
DR WERNER NOTIFIED OF PT'S BLOOD SUGAR OF 209 THIS AM PRIOR TO BREAKFAST/INSULIN. ORDER GIVEN. TO CONTINUE TO CALL DR WERNER FOR BLOOD SUGARS >200.
[2020-04-28 07:05] LABS: Bedside Glucose 209 mg/dL (70-110)
[2020-04-28] MEDS: Insulin Lispro 100 UNIT/ML INSULN.PEN 15 UNIT SC (07:14)
[2020-04-28] MEDS: Ascorbic Acid 500 MG Tablet PO ×2 (07:52→17:25)
[2020-04-28] MEDS: Lisinopril 20 MG Tablet PO ×2 (07:53→21:49)
[2020-04-28] MEDS: Multivitamins,Therapeutic Tablet 1 TABLET PO (07:53)
[2020-04-28] MEDS: DULoxetine Hcl 60 MG Capsule PO (07:53)
[2020-04-28] MEDS: Pantoprazole Sodium 40 MG Tablet PO ×2 (07:54→21:48)
[2020-04-28] MEDS: buPROPion (SR) 150 MG Tablet.SA PO ×2 (07:54→21:49)
[2020-04-28] MEDS: Pramipexole Di-HCl 0.125 MG Tablet PO ×2 (07:54→21:49)
[2020-04-28] MEDS: Insulin Lispro 100 UNIT/ML INSULN.PEN SC ×3 (07:55→17:22)
[2020-04-28] MEDS: Insulin Lispro 100 UNIT/ML INSULN.PEN 45 UNIT SC (07:56)
[2020-04-28] MEDS: amLODIPine 2.5 MG Tablet PO (07:58)
[2020-04-28 11:25] LABS: Bedside Glucose 225 mg/dL (70-110)
[2020-04-28 16:36] LABS: Bedside Glucose 152 mg/dL (70-110)
[2020-04-28] MEDS: Insulin Lispro 100 UNIT/ML INSULN.PEN 80 UNIT SC (17:22)
[2020-04-28 21:30] VITALS: BP 135/91; PULSE 85; RESP 18; TEMP 36.6; O2SAT 94
[2020-04-28] MEDS: Fluticasone 0.05% 1 SPRAY NASAL.SRY 2 SPRAY NASAL (21:47)
[2020-04-28] MEDS: Senna/Docusate Sodium 1 Tablet 2 TABLET PO (21:52)
[2020-04-28 21:55] LABS: Bedside Glucose 178 mg/dL (70-110)
--- NOTE | 2020-04-29 01:35 | NURSING ---
REVIEWED AND AGREE WITH [employer]COME TAX ADVISOR'S FUNCTIONAL ASSESSMENT OF PT AND HANDOFF CHARTING.
[2020-04-29] MEDS: Levothyroxine 75 MCG Tablet 225 MCG PO (06:49)
[2020-04-29] MEDS: oxyCODONE 5 MG Tablet 10 MG PO ×4 (06:49→23:00)
[2020-04-29] MEDS: Acetaminophen 500 MG Tablet 1000 MG PO ×3 (06:50→21:39)
[2020-04-29] MEDS: Enoxaparin 40 MG/0.4 ML Syringe SC ×2 (06:50→16:34)
[2020-04-29 07:01] LABS: Bedside Glucose 260 mg/dL (70-110)
[2020-04-29 07:47] VITALS: BP 126/74; PULSE 79; RESP 16; TEMP 36.6; O2SAT 97
[2020-04-29] MEDS: DULoxetine Hcl 60 MG Capsule PO (08:02)
[2020-04-29] MEDS: Pantoprazole Sodium 40 MG Tablet PO ×2 (08:02→21:38)
[2020-04-29] MEDS: Multivitamins,Therapeutic Tablet 1 TABLET PO (08:02)
[2020-04-29] MEDS: Lisinopril 20 MG Tablet PO ×2 (08:02→21:39)
[2020-04-29] MEDS: amLODIPine 2.5 MG Tablet PO (08:02)
[2020-04-29] MEDS: buPROPion (SR) 150 MG Tablet.SA PO ×2 (08:02→21:38)
[2020-04-29] MEDS: Pramipexole Di-HCl 0.125 MG Tablet PO ×2 (08:02→21:38)
[2020-04-29] MEDS: Ascorbic Acid 500 MG Tablet PO ×2 (08:02→16:34)
[2020-04-29] MEDS: Insulin Lispro 100 UNIT/ML INSULN.PEN SC ×3 (08:03→16:35)
[2020-04-29] MEDS: Insulin Lispro 100 UNIT/ML INSULN.PEN 80 UNIT SC (08:04)
--- NOTE | 2020-04-29 11:24 | PCM.PN.BLA ---
Progress Note Afebrile VSS - BP is better but, still having some occasional increased BP's....this may be catecholamine induced....he gets agitated at times. Maintaining appropriate oxygen saturation on RA Oral intake is excellent Discussed with nursing - no problems that need addressed Reviewed the PT/OT notes Medication list reviewed. He is now on U-[address] Odonnell's consult and appreciate her input greatly. He has been seen by Dr. Soto and the nails on the right foot have been debrided. He has also been seen by Dr. Castillo........who showed up when the dressing was being changed.....and the antibiotics have been DC'd Alert, pleasant and easy to talk with today. He is happy to be off the antibiotics Lungs - CTA....no cough and no tachypnea.......he does get winded with exertion but his exercise tolerance has been increasing since admission HRRR abd- NT, normal BS's no edema of the R leg Incision is intact and there is no significant ella-incisional erythema and no DC. The drain is still in. There is no increased warmth to touch no rashes No R callf tenderness....he is on Lovenox 40 mg BID due to BMI > 50 Impressions 1. debility due to L BKA 2, uncontrolled DM II - BS's are improving with the transition to U-500 insulin -still requiring high doses due to insulin resistance. Greatly appreciate Dr. Odonnell's assistance and suggested to Andrei that he continue to follow up with Dr. Odonnell post discharge. 3. HTN Recheck a CBC with diff, BMP and a mag in the AM He is unable to do posterior hygiene after using the BSC(total assist) and he can not get his pants on either(max assist today). I suspect he is going to need a lot of assistance at [place]........I do not see him going home. He has no one at home to help him and the BR is not accessible to a wheelchair. The hallways in his house are narrow and also will not accommodate a wheelchair. In my opinion he is going to need to go to a intermediate facility from inpatient rehab. [facility] Vital Signs/Narrative: Vital Signs Temp Pulse Resp BP Pulse Ox 04/29/20 07:47 98 F 79 16 126/74 H 97 Inpatient E&M: 78248 Subs Hosp L2
[2020-04-29 11:55] VITALS: BP 120/59; PULSE 82
[2020-04-29 12:00] LABS: Bedside Glucose 223 mg/dL (70-110)
[2020-04-29 16:30] VITALS: BP 129/71; PULSE 96
[2020-04-29 16:51] LABS: Bedside Glucose 158 mg/dL (70-110)
[2020-04-29 19:18] VITALS: BP 129/71; PULSE 87; RESP 16; TEMP 36.9; O2SAT 95
[2020-04-29 21:17] LABS: Bedside Glucose 129 mg/dL (70-110)
[2020-04-29] MEDS: Senna/Docusate Sodium 1 Tablet 2 TABLET PO (21:38)
[2020-04-29 21:45] VITALS: BP 130/78; PULSE 76
[2020-04-29 21:47] VITALS: RESP 17
[2020-04-30] VITALS (7 sets, daily range): BP systolic 122–139; BP diastolic 52–84; PULSE 76–91; RESP 16–18; TEMP 36.3–36.7; O2SAT 97
[2020-04-30] MEDS: oxyCODONE 5 MG Tablet 10 MG PO ×5 (03:09→22:54)
[2020-04-30 05:44] LABS: Absolute Lymphocyte Count 2.68 X10^3/uL (0.83-4.51); Absolute Neutrophil Count 3.3 X10^3/uL (2.0-7.7); Basophil# 0.06 X10^3/uL; Basophil% 0.8 % (0-1); Eosinophil# 0.22 X10^3/uL; Hemoglobin 12.3 g/dL (13.0-16.5); Lymphocyte # 2.68 X10^3/ul (4.0); Lymphocyte % 36.2 % (19-41); Mean Corpuscular Hgb 26.3 pg (27.0-32.0); Mean Corpuscular Volume 87.8 fL (80-94); Mean Platelet Vol. 9.9 fl (6.2-12.0); Monocyte% 13.5 % (0-10); NRBC Flagged by Analyzer 0 % (0-5); Neutrophil # 3.29 X10^3/uL (2.7-7.7); Neutrophil % 44.3 % (47-70); Platelet Count 436 K/mm3 (150-450); RBC Distribution Width CV 16.7 % (11.6-14.6); RBC Distribution Width SD 53.4 fl (35.1-43.9); Red Blood Count 4.67 M/mm3 (4.6-6.2); White Blood Count 7.4 K/mm3 (4.4-11.0)
[2020-04-30 05:59] LABS: Anion Gap 5 (5-15); BUN 34 mg/dL (7-18); BUN/Creat Ratio 20.9 RATIO (10-20); Calcium,Total 8.9 mg/dL (8.5-10.1); Chloride 102 mmol/L (98-107); Creatinine, Serum 1.63 mg/dL (0.70-1.30); EST Glomerular Filtration Rate 46 mL/min (>60); Est Glom Filt Rate - Afr Amer 55 mL/min (>60); Estimated Creatinine Clearance 48.52 ml/min; Glucose 145 mg/dL (74-106); Magnesium 1.9 mg/dL (1.6-2.6); Potassium 4.4 mmol/L (3.5-5.1); Sodium Level 135 mmol/L (136-145)
[2020-04-30] MEDS: Acetaminophen 500 MG Tablet 1000 MG PO ×3 (06:29→21:44)
[2020-04-30] MEDS: Enoxaparin 40 MG/0.4 ML Syringe SC ×2 (06:29→16:19)
[2020-04-30] MEDS: Levothyroxine 75 MCG Tablet 225 MCG PO (06:29)
[2020-04-30 07:00] LABS: Bedside Glucose 155 mg/dL (70-110)
[2020-04-30] MEDS: Insulin Lispro 100 UNIT/ML INSULN.PEN SC ×3 (08:05→16:26)
[2020-04-30] MEDS: Pramipexole Di-HCl 0.125 MG Tablet PO ×2 (08:10→21:44)
[2020-04-30] MEDS: Ascorbic Acid 500 MG Tablet PO ×2 (08:10→16:19)
[2020-04-30] MEDS: buPROPion (SR) 150 MG Tablet.SA PO ×2 (08:10→21:44)
[2020-04-30] MEDS: amLODIPine 2.5 MG Tablet PO (08:10)
[2020-04-30] MEDS: DULoxetine Hcl 60 MG Capsule PO (08:10)
[2020-04-30] MEDS: Lisinopril 20 MG Tablet PO ×2 (08:10→21:44)
[2020-04-30] MEDS: Pantoprazole Sodium 40 MG Tablet PO ×2 (08:10→21:44)
[2020-04-30] MEDS: Multivitamins,Therapeutic Tablet 1 TABLET PO (08:10)
[2020-04-30 12:10] LABS: Bedside Glucose 195 mg/dL (70-110)
[2020-04-30 16:51] LABS: Bedside Glucose 151 mg/dL (70-110)
[2020-04-30 21:25] LABS: Bedside Glucose 209 mg/dL (70-110)
[2020-04-30] MEDS: Senna/Docusate Sodium 1 Tablet 2 TABLET PO (21:44)
[2020-04-30] MEDS: Fluticasone 0.05% 1 SPRAY NASAL.SRY 2 SPRAY NASAL (21:45)
[2020-05-01] MEDS: oxyCODONE 5 MG Tablet 10 MG PO ×4 (03:27→19:45)
[2020-05-01] MEDS: Levothyroxine 75 MCG Tablet 225 MCG PO (05:25)
[2020-05-01] MEDS: Enoxaparin 40 MG/0.4 ML Syringe SC ×2 (05:25→17:07)
[2020-05-01] MEDS: Acetaminophen 500 MG Tablet 1000 MG PO ×3 (05:26→20:39)
[2020-05-01 07:00] VITALS: BP 126/56; PULSE 73; RESP 18; TEMP 36.4; O2SAT 98
[2020-05-01 07:01] LABS: Bedside Glucose 248 mg/dL (70-110)
[2020-05-01] MEDS: amLODIPine 2.5 MG Tablet PO (08:11)
[2020-05-01] MEDS: buPROPion (SR) 150 MG Tablet.SA PO ×2 (08:11→20:42)
[2020-05-01] MEDS: Ascorbic Acid 500 MG Tablet PO ×2 (08:11→17:07)
[2020-05-01] MEDS: Pramipexole Di-HCl 0.125 MG Tablet PO ×2 (08:11→20:39)
[2020-05-01] MEDS: Multivitamins,Therapeutic Tablet 1 TABLET PO (08:11)
[2020-05-01] MEDS: Pantoprazole Sodium 40 MG Tablet PO ×2 (08:11→20:39)
[2020-05-01] MEDS: Insulin Lispro 100 UNIT/ML INSULN.PEN SC ×2 (08:12→12:26)
[2020-05-01] MEDS: DULoxetine Hcl 60 MG Capsule PO (08:13)
[2020-05-01] MEDS: Lisinopril 20 MG Tablet PO ×2 (08:13→20:42)
[2020-05-01 12:01] LABS: Bedside Glucose 220 mg/dL (70-110)
--- NOTE | 2020-05-01 14:16 | PN.SURG_ITS ---
Patient Problems: Active and Suspected Problems (Last Reviewed 04/22/20 @ 19:[address] Juhi Polk DO) Hyponatremia (Acute) Subjective: post op surgery day #12 - Physical Exam Vitals/I&O's: Vital Signs Temp Pulse Resp BP Pulse Ox 97.5 F L 73 18 126/56 H 98 05/01/20 07:00 05/01/20 07:00 05/01/20 07:00 05/01/20 07:00 05/01/20 07:00 Oxygen Delivery Method Room Air Weight: 382 lb 15.087 oz Body Mass Index (BMI) 55.9 Finger Stick Blood Glucose 190 Intake and Output for Last 24 Hours 04/29/20 04/30/20 05/01/20 23:59 23:59 23:59 Intake Total 1880 / 1880 1880 / 1880 1580 / 1580 Output Total 2265 / 2265 1865 / 1865 2135 / 2135 Balance -385 / -385 15 / 15 -555 / -555 General: Alert, Oriented x3, Cooperative HEENT: Atraumatic Oral: Moist Mucosa Lungs: Normal air movement Cardiovascular: Regular rate Extremities: Capillary Refill Less than 3 Seconds, Edema - left stump, Ten derness - Left BKA stump Skin: Incision - Left BKA incision is dry and intact. Sutures intact. Leonie drain removed without difficulty. Musculoskeletal: Tenderness - Left BKA stump Neurological: Neuro grossly intact Psych/Mental Status: Normal Affect, Appropriate Laboratory Results 04/30/20 16:18: POC Glucose 151 H 04/30/20 20:55: POC Glucose 209 H 05/01/20 06:06: POC Glucose 248 H 05/01/20 11:46: POC Glucose 220 H Current Medications Acetaminophen (Tylenol) 1,000 mg PO Q8 REPLACED BY [facility] Last Admin: 05/01/20 05:26 Dose: 1,000 mg Documented by: Amlodipine Besylate (Norvasc) 2.5 mg PO DAILY REPLACED BY [facility] Last Admin: 05/01/20 08:11 Dose: 2.5 mg Documented by: Ascorbic Acid (Vitamin C) 500 mg PO BIDCM REPLACED BY [facility] Last Admin: 05/01/20 08:11 Dose: 500 mg Documented by: Bisacodyl (Dulcolax) 10 mg RECTAL .PRN X 1 PRN PRN Reason: Constipation Bupropion HCl (Wellbutrin Sr (150mg Tablets)) 150 mg PO BID REPLACED BY [facility] Last Admin: 05/01/20 08:11 Dose: 150 mg Documented by: Duloxetine HCl (Cymbalta) 60 mg PO DAILY REPLACED BY [facility] Last Admin: 05/01/20 08:13 Dose: 60 mg Documented by: Enoxaparin Sodium (Lovenox) 40 mg SC BID@0600,1800 REPLACED BY [facility] Last Admin: 05/01/20 05:25 Dose: 40 mg Documented by: Fluticasone Propionate (Flonase Nasal [place]) 2 spray NASAL DAILY PRN PRN PRN Reason: SINUS CONGESTION Last Admin: 04/30/20 21:45 Dose: 2 sprays Documented by: Sodium Chloride () 250 mls @ 15 mls/hr IV .[id number] PRN PRN Reason: Saline Flush Last Infusion: 04/26/20 13:55 Dose: Infused Documented by: Insulin Human Lispro (Humalog Kwikpen ([facility])) 0 unit SC TIDAC REPLACED BY [facility]; Protocol Last Admin: 05/01/20 12:26 Dose: 6 u Documented by: Insulin Human Regular (Humulin R U-500 ([facility])) 125 units SC TIDAC REPLACED BY [facility] Last Admin: 05/01/20 12:26 Dose: 125 u Documented by: Levothyroxine Sodium (Synthroid) 225 mcg PO DAILY@0600 REPLACED BY [facility] Last Admin: 05/01/20 05:25 Dose: 225 mcg Documented by: Lisinopril (Zestril) 20 mg PO BID REPLACED BY [facility] Last Admin: 05/01/20 08:13 Dose: 20 mg Documented by: Magnesium Hydroxide (Milk Of Magnesia) 30 ml PO .PRN X 1 PRN PRN Reason: Constipation [facility] Last Admin: 05/01/20 08:11 Dose: 1 tablet Documented by: Oxycodone HCl (Oxyir) 10 mg PO Q4H PRN PRN PRN Reason: Pain Score 6-10/10 Last Admin: 05/01/20 09:14 Dose: 10 mg Documented by: Pantoprazole Sodium (Protonix) 40 mg PO BID REPLACED BY [facility] Last Admin: 05/01/20 08:11 Dose: 40 mg Documented by: Pramipexole Dihydrochloride (Mirapex) 0.125 mg PO BID REPLACED BY [facility] Last Admin: 05/01/20 08:11 Dose: 0.125 mg Documented by: Senna/Docusate Sodium (Senokot-S, Jolly-Colace) 2 tablet PO BID REPLACED BY [facility] Last Admin: 05/01/20 08:13 Dose: Not Given Documented by: Sodium Chloride () 10 - 40 ml IV UD PRN PRN Reason: SALINE FLUSH Last Admin: 04/26/20 01:03 Dose: 10 ml Documented by: Zinc Sulfate (Zinc Sulfate) 220 mg PO DAILYCM REPLACED BY [facility] Last Admin: 05/01/20 08:11 Dose: 220 mg Documented by: Medical Necessity - Tobacco Use Smoking Status: Former smoker Tobacco Use: Non-smoker Assessment/Plan All Active Problems (Last Reviewed 04/22/20 @ 19:[address] Juhi Polk, ) Other hereditary and idiopathic neuropathies (Acute) Hallux limitus of right foot (Acute) Hyponatremia (Acute) MRSA (methicillin resistant Staphylococcus aureus) infection (Acute) Sepsis (Resolved) Diabetic foot ulcer associated with type 2 diabetes mellitus (Acute) Acute renal failure (Resolved) COPD exacerbation (Resolved) Foot ulcer, left (Resolved) Hospital-acquired pneumonia (Resolved) Necrotizing fasciitis (Resolved) Non-ST elevated myocardial infarction (Resolved) Osteomyelitis of ankle or foot (Resolved) left foot neuropathic deep wound infection (Resolved) 1. Nonhealing infected diabetic ulcers left foot. 2. Sepsis 3. MRSA 4. Diabetic neuropathy 5. Obesity 6. s/p left below knee amputation 7. Recent fall since surgery Incision is dry and intact. Mild swelling present. No clinical evidence of h ematoma after his fall last week. Leonie drain removed without difficulty. Dressing changed. MAURILIO wrap for compression. Operative culture show Streptococcus agalactiae, Staphylococcus simulans, and Corynebacterium striatum. He had been treated with Cefdinir when he was inpatient and then started on Linezolid. ID consulted and stopped all antibiotics. Prealbumin was 9.1. Encouraged nutritional supplementation with protein to help with the healing process. He will follow up at the wound center after he discharged from Rehab unit.
--- NOTE | 2020-05-01 16:09 | CASEMGMT ---
SW met with pt and discussed discharge plan. Pt is aware that he will need SNF at time of d/c and pt stating he has not made a decision yet. SW provided a new SNF list however pt stating he has the list. SW requested pt review list and let SW know 2 choices in the morning. SW to follow for d/c planning. ATUL Krause
[2020-05-01 16:30] VITALS: BP 127/52; PULSE 82
[2020-05-01 17:15] LABS: Bedside Glucose 106 mg/dL (70-110)
[2020-05-01 20:40] LABS: Bedside Glucose 78 mg/dL (70-110)
[2020-05-01 20:41] VITALS: BP 153/78; PULSE 82; RESP 16; TEMP 37; O2SAT 95
[2020-05-01 22:46] LABS: Bedside Glucose 122 mg/dL (70-110)
[2020-05-02 02:31] LABS: Bedside Glucose 86 mg/dL (70-110)
--- NOTE | 2020-05-02 03:15 | NURSING ---
upon checking hs blood sugar- BS 78 at 2030- snack of milk and cookies given per pt request. BS rechecked at 2230- 122. BS rechecked at 0230 for 86. pt remains asymptomatic. will continue to monitor and check blood sugars.
[2020-05-02] MEDS: oxyCODONE 5 MG Tablet 10 MG PO ×5 (04:09→21:47)
[2020-05-02] MEDS: Enoxaparin 40 MG/0.4 ML Syringe SC ×2 (05:11→17:31)
[2020-05-02] MEDS: Acetaminophen 500 MG Tablet 1000 MG PO ×3 (05:12→21:46)
[2020-05-02] MEDS: Levothyroxine 75 MCG Tablet 225 MCG PO (05:12)
[2020-05-02 06:41] LABS: Bedside Glucose 108 mg/dL (70-110)
[2020-05-02 07:50] VITALS: BP 107/64; PULSE 77; RESP 16; TEMP 36.6; O2SAT 97
[2020-05-02] MEDS: Multivitamins,Therapeutic Tablet 1 TABLET PO (07:50)
[2020-05-02] MEDS: Pantoprazole Sodium 40 MG Tablet PO ×2 (07:50→21:46)
[2020-05-02] MEDS: DULoxetine Hcl 60 MG Capsule PO (07:50)
[2020-05-02] MEDS: amLODIPine 2.5 MG Tablet PO (07:50)
[2020-05-02] MEDS: Ascorbic Acid 500 MG Tablet PO ×2 (07:50→17:31)
[2020-05-02] MEDS: Pramipexole Di-HCl 0.125 MG Tablet PO ×2 (07:51→21:46)
[2020-05-02] MEDS: buPROPion (SR) 150 MG Tablet.SA PO ×2 (07:51→21:46)
[2020-05-02] MEDS: Lisinopril 20 MG Tablet PO ×2 (07:52→21:47)
--- NOTE | 2020-05-02 08:00 | NURSING ---
Dr. Odonnell changed insulin with meal order and clarified he is to still get with breakfast at this time.
--- NOTE | 2020-05-02 08:30 | PCM.PN.BLA ---
Progress Note Andrei was seen on team rounds today. There was no family available to participate. Afebrile VSS - BP is a little high still but, he is having issue with stress over the coming transfer to a nursing facility and he is anxious Maintaining appropriate oxygen saturation on RA Oral intake is good Discussed with nursing -he was hypoglycemic last night at at bedtime and the blood sugar was 78. He was given a snack and the fasting blood sugar this morning is 108. Dr. Odonnell was notified and has decreased the insulin. Blood sugars are under much better control now. Reviewed the PT/OT notes Medication list reviewed. Alert, NAD, tense........he has not made a choice of SNF yet and SW related to him that he has to make a decision on SNF today since he has been putting it off...he has been given a list of nursing homes that will accept his insurance. pleasant Lungs - diminished but, CTA HRRR, distant abd - NT, ND, BS present no RLE edema the incision is intact with no areas of dehiscence. There is no ella-incisional erythema and no DC. no rashes Impressions 1. Debility due to L BKA 2. DM II - well controlled now and will continue to follow up with [facility] post discharge 3. HTN 4. BPD/agoraphobia 5. super obesity - this complicates care significantly but he is able to stand and pivot from different surfaces and he is manuevering the WC well. Continue therapy DC on 05/07/20 a halfway unit [facility] Vital Signs/Narrative: Vital Signs Temp Pulse Resp BP Pulse Ox 05/02/20 07:50 98 F 77 16 107/64 97 Inpatient E&M: [id number] Subs Hosp L2
[2020-05-02 12:11] LABS: Bedside Glucose 196 mg/dL (70-110)
[2020-05-02] MEDS: Insulin Lispro 100 UNIT/ML INSULN.PEN SC (12:15)
--- NOTE | 2020-05-02 16:50 | NURSING ---
Dr Odonnell aware of low bs, new order received. [place] juice given and asymptomatic.
--- NOTE | 2020-05-02 17:20 | NURSING ---
[place] juice given with supper meal and asymptomatic. Alert and oriented.
[2020-05-02 17:26] LABS: Bedside Glucose 59 mg/dL (70-110)
[2020-05-02 17:26] LABS: Bedside Glucose 62 mg/dL (70-110)
--- NOTE | 2020-05-02 17:28 | CASEMGMT ---
Team meeting held today with pt present. Pt is participating well in PT and OT and progressing with therapies. Pt is aware that last covered day is 05/06 with discharge of 05/07 and pt is agreeable to SNF placement for continued therapy. Pt first stating he would like to go to the [facility] and then listing criteria for acceptable facilities and is agreeable to any facility that meets his critera. Pt does not want to return to [place] where he was previously. SW made referral for SNF. The following facilities denied admission: [facility], [facility], [place], [facility]. Referrals are pending for [facility] and [facility]. Pt is aware and agreeable at this time to go to any accepting facility. SW will continue to follow for discharge placement. ATUL Krause
[2020-05-02 17:56] LABS: Bedside Glucose 80 mg/dL (70-110)
[2020-05-02 18:36] LABS: Bedside Glucose 105 mg/dL (70-110)
[2020-05-02 19:41] LABS: Bedside Glucose 156 mg/dL (70-110)
[2020-05-02 19:58] VITALS: BP 140/78; PULSE 85; RESP 18; TEMP 36.8; O2SAT 96
[2020-05-02] MEDS: Senna/Docusate Sodium 1 Tablet 2 TABLET PO (21:46)
[2020-05-03] MEDS: oxyCODONE 5 MG Tablet 10 MG PO ×5 (01:55→22:14)
[2020-05-03 04:31] LABS: Bedside Glucose 83 mg/dL (70-110)
[2020-05-03] MEDS: Acetaminophen 500 MG Tablet 1000 MG PO ×3 (05:23→22:11)
[2020-05-03] MEDS: Levothyroxine 75 MCG Tablet 225 MCG PO (05:23)
[2020-05-03] MEDS: Enoxaparin 40 MG/0.4 ML Syringe SC ×2 (05:23→17:01)
[2020-05-03 06:36] LABS: Bedside Glucose 107 mg/dL (70-110)
[2020-05-03] MEDS: Pramipexole Di-HCl 0.125 MG Tablet PO ×2 (07:39→22:12)
[2020-05-03] MEDS: buPROPion (SR) 150 MG Tablet.SA PO ×2 (07:39→22:11)
[2020-05-03] MEDS: amLODIPine 2.5 MG Tablet PO (07:39)
[2020-05-03] MEDS: Pantoprazole Sodium 40 MG Tablet PO ×2 (07:39→22:12)
[2020-05-03] MEDS: Ascorbic Acid 500 MG Tablet PO ×2 (07:40→17:00)
[2020-05-03] MEDS: DULoxetine Hcl 60 MG Capsule PO (07:40)
[2020-05-03] MEDS: Lisinopril 20 MG Tablet PO ×2 (07:40→22:11)
[2020-05-03] MEDS: Multivitamins,Therapeutic Tablet 1 TABLET PO (07:40)
[2020-05-03 08:52] VITALS: BP 145/75; PULSE 88; RESP 18; TEMP 36.6; O2SAT 95
[2020-05-03] MEDS: Insulin Lispro 100 UNIT/ML INSULN.PEN SC ×2 (11:58→16:59)
[2020-05-03 12:00] LABS: Bedside Glucose 180 mg/dL (70-110)
[2020-05-03 17:05] LABS: Bedside Glucose 171 mg/dL (70-110)
[2020-05-03 19:28] VITALS: BP 146/79; PULSE 81; RESP 16; TEMP 36.1; O2SAT 97
[2020-05-03 21:26] LABS: Bedside Glucose 199 mg/dL (70-110)
[2020-05-04 06:21] LABS: Bedside Glucose 94 mg/dL (70-110)
[2020-05-04] MEDS: Fluticasone 0.05% 1 SPRAY NASAL.SRY 2 SPRAY NASAL (06:30)
[2020-05-04] MEDS: Acetaminophen 500 MG Tablet 1000 MG PO ×3 (06:31→22:52)
[2020-05-04] MEDS: Levothyroxine 75 MCG Tablet 225 MCG PO (06:31)
[2020-05-04] MEDS: Enoxaparin 40 MG/0.4 ML Syringe SC ×2 (06:32→17:10)
[2020-05-04 07:40] VITALS: BP 137/63; PULSE 80; RESP 18; TEMP 36.6; O2SAT 96
[2020-05-04] MEDS: amLODIPine 2.5 MG Tablet PO (07:51)
[2020-05-04] MEDS: Pantoprazole Sodium 40 MG Tablet PO ×2 (07:51→22:52)
[2020-05-04] MEDS: DULoxetine Hcl 60 MG Capsule PO (07:51)
[2020-05-04] MEDS: buPROPion (SR) 150 MG Tablet.SA PO ×2 (07:51→22:53)
[2020-05-04] MEDS: Pramipexole Di-HCl 0.125 MG Tablet PO ×2 (07:52→22:52)
[2020-05-04] MEDS: Ascorbic Acid 500 MG Tablet PO ×2 (07:52→17:10)
[2020-05-04] MEDS: Multivitamins,Therapeutic Tablet 1 TABLET PO (07:52)
[2020-05-04] MEDS: Lisinopril 20 MG Tablet PO ×2 (07:53→22:53)
[2020-05-04] MEDS: Senna/Docusate Sodium 1 Tablet 2 TABLET PO (07:56)
[2020-05-04 09:39] VITALS: BP 136/72; BP 151/96; PULSE 85; PULSE 87
[2020-05-04 09:41] LABS: Bedside Glucose 206 mg/dL (70-110)
[2020-05-04 11:30] LABS: Absolute Lymphocyte Count 2.98 X10^3/uL (0.83-4.51); Absolute Neutrophil Count 3.9 X10^3/uL (2.0-7.7); Basophil# 0.06 X10^3/uL; Basophil% 0.8 % (0-1); Eosinophil# 0.21 X10^3/uL; Eosinophils% 2.6 % (0-5); Hematocrit 40.6 % (40-54); Lymphocyte # 2.98 X10^3/ul (4.0); Lymphocyte % 37.4 % (19-41); Mean Corp Hgb Conc 29.6 g/dL (32-36); Mean Corpuscular Hgb 26.2 pg (27.0-32.0); Mean Corpuscular Volume 88.6 fL (80-94); Mean Platelet Vol. 10.1 fl (6.2-12.0); Monocyte# 0.78 X10^3/uL; Monocyte% 9.8 % (0-10); NRBC Flagged by Analyzer 0 % (0-5); Neutrophil # 3.86 X10^3/uL (2.7-7.7); Neutrophil % 48.4 % (47-70); Platelet Count 338 K/mm3 (150-450); RBC Distribution Width CV 17.1 % (11.6-14.6); RBC Distribution Width SD 54.8 fl (35.1-43.9); Red Blood Count 4.58 M/mm3 (4.6-6.2)
[2020-05-04 11:51] LABS: Anion Gap 6 (5-15); BUN 35 mg/dL (7-18); Calcium,Total 8.7 mg/dL (8.5-10.1); Chloride 103 mmol/L (98-107); Creatinine, Serum 1.52 mg/dL (0.70-1.30); EST Glomerular Filtration Rate 50 mL/min (>60); Est Glom Filt Rate - Afr Amer 60 mL/min (>60); Estimated Creatinine Clearance 52.03 ml/min; Glucose 177 mg/dL (74-106); Magnesium 2.1 mg/dL (1.6-2.6); Potassium 5.2 mmol/L (3.5-5.1); Sodium Level 137 mmol/L (136-145)
[2020-05-04] MEDS: oxyCODONE 5 MG Tablet 10 MG PO ×2 (12:18→18:33)
[2020-05-04 12:26] LABS: Bedside Glucose 142 mg/dL (70-110)
[2020-05-04 17:11] LABS: Bedside Glucose 109 mg/dL (70-110)
[2020-05-04 19:05] VITALS: BP 128/58; PULSE 81; RESP 18; TEMP 37.2; O2SAT 98
[2020-05-04 19:55] VITALS: TEMP 36.9
[2020-05-04 21:36] LABS: Bedside Glucose 65 mg/dL (70-110)
[2020-05-04 21:55] LABS: Bedside Glucose 61 mg/dL (70-110)
[2020-05-04 22:15] LABS: Bedside Glucose 87 mg/dL (70-110)
--- NOTE | 2020-05-04 22:37 | NURSING ---
Pt had hypoglycemic BS this hs of 65. One intervention given and BS was 61. 2nd intervention provided and Hospitalist was notified through page. BS upon 2nd intervention was 87 and Hospitalist, Dr Tyler Victor, ordered BS check at 03:00.
[2020-05-04 22:51] LABS: Bedside Glucose 100 mg/dL (70-110)
[2020-05-05 03:01] LABS: Bedside Glucose 186 mg/dL (70-110)
[2020-05-05] MEDS: oxyCODONE 5 MG Tablet 10 MG PO ×4 (03:03→19:29)
--- NOTE | 2020-05-05 03:11 | NURSING ---
BS check at 03:00 was 186. Pt c/o pain and provided Oxyir PRN.
[2020-05-05 06:45] LABS: Bedside Glucose 128 mg/dL (70-110)
[2020-05-05] MEDS: Levothyroxine 75 MCG Tablet 225 MCG PO (06:49)
[2020-05-05] MEDS: Acetaminophen 500 MG Tablet 1000 MG PO ×3 (06:49→22:08)
[2020-05-05] MEDS: Enoxaparin 40 MG/0.4 ML Syringe SC ×2 (06:49→16:48)
[2020-05-05] MEDS: Fluticasone 0.05% 1 SPRAY NASAL.SRY 2 SPRAY NASAL (06:49)
--- NOTE | 2020-05-05 07:00 | NURSING ---
Incision cleaned with soap and water. Kerlix replaced and paola wrap rewrapped around rt bka. pt tolerated well.
[2020-05-05 07:45] VITALS: BP 116/49; PULSE 73; RESP 16; TEMP 36.5; O2SAT 98
[2020-05-05] MEDS: Lisinopril 20 MG Tablet PO ×2 (07:46→22:10)
[2020-05-05] MEDS: Pramipexole Di-HCl 0.125 MG Tablet PO ×2 (07:46→22:07)
[2020-05-05] MEDS: amLODIPine 2.5 MG Tablet PO (07:46)
[2020-05-05] MEDS: Pantoprazole Sodium 40 MG Tablet PO ×2 (07:46→22:07)
[2020-05-05] MEDS: DULoxetine Hcl 60 MG Capsule PO (07:46)
[2020-05-05] MEDS: buPROPion (SR) 150 MG Tablet.SA PO ×2 (07:46→22:09)
[2020-05-05] MEDS: Multivitamins,Therapeutic Tablet 1 TABLET PO (07:47)
[2020-05-05] MEDS: Ascorbic Acid 500 MG Tablet PO ×2 (07:47→16:49)
[2020-05-05 11:40] LABS: Bedside Glucose 195 mg/dL (70-110)
[2020-05-05] MEDS: Insulin Lispro 100 UNIT/ML INSULN.PEN SC (11:50)
[2020-05-05 17:00] LABS: Bedside Glucose 112 mg/dL (70-110)
[2020-05-05 18:51] VITALS: BP 146/96; PULSE 84; RESP 18; TEMP 36.6; O2SAT 96
[2020-05-05 21:11] LABS: Bedside Glucose 165 mg/dL (70-110)
[2020-05-06 03:01] LABS: Bedside Glucose 205 mg/dL (70-110)
[2020-05-06 06:35] LABS: Bedside Glucose 161 mg/dL (70-110)
[2020-05-06] MEDS: Enoxaparin 40 MG/0.4 ML Syringe SC ×2 (06:46→16:38)
[2020-05-06] MEDS: Acetaminophen 500 MG Tablet 1000 MG PO ×3 (06:46→22:04)
[2020-05-06] MEDS: Levothyroxine 75 MCG Tablet 225 MCG PO (06:47)
[2020-05-06 07:28] VITALS: BP 141/58; PULSE 78; RESP 18; TEMP 36.5; O2SAT 95
--- NOTE | 2020-05-06 08:00 | NURSING ---
Spoke with Dr Khan he will see pt in his office on 05/08/20
[2020-05-06] MEDS: amLODIPine 2.5 MG Tablet PO (08:03)
[2020-05-06] MEDS: buPROPion (SR) 150 MG Tablet.SA PO ×2 (08:03→22:04)
[2020-05-06] MEDS: DULoxetine Hcl 60 MG Capsule PO (08:03)
[2020-05-06] MEDS: Ascorbic Acid 500 MG Tablet PO ×2 (08:03→16:38)
[2020-05-06] MEDS: Lisinopril 20 MG Tablet PO ×2 (08:03→22:04)
[2020-05-06] MEDS: Multivitamins,Therapeutic Tablet 1 TABLET PO (08:03)
[2020-05-06] MEDS: Pantoprazole Sodium 40 MG Tablet PO ×2 (08:03→22:04)
[2020-05-06] MEDS: Insulin Lispro 100 UNIT/ML INSULN.PEN SC ×2 (08:03→12:19)
[2020-05-06] MEDS: Pramipexole Di-HCl 0.125 MG Tablet PO ×2 (08:03→22:04)
--- NOTE | 2020-05-06 10:45 | CASEMGMT ---
Addendum entered by Gabriela Hernandez 05/07/20 10:26: Received Medicaid Pending # [id number] Addendum entered by Gabriela Hernandez 05/06/20 15:09: Sleep study will remain scheduled for 05/15. Pt chose [facility]. Notified both facilities. Pt to transfer via w/c through [facility] at 1 pm. 7000 completed. Left message with S for Medicaid application update. Plan: DC 05/07 to [facility]. Original Note: Social [facility] and [facility] have accepted pt. COVID tested ordered for negative prior to admit. Pt to speak with both facilities prior to making decision. Will schedule w/c transport. Nursing still attempting to get sleep study schedule for this date. Will continue to follow. KD BarneyW
[2020-05-06 11:30] LABS: Bedside Glucose 198 mg/dL (70-110)
--- NOTE | 2020-05-06 12:36 | PCM.PN.BLA ---
Progress Note Afebrile Blood pressure is stable but a little erratic. It is very sensitive to any stress and Andrei has been anxious about being discharged. Heart rate is consistently in the 70s and 80s. Blood sugars are well controlled He is maintaining appropriate oxygen saturation on room air during the day. Weight has increased 2 pounds since admission. Andrei is apprehensive about transitioning to a nursing facility. He realizes he is agoraphobic. some days he just does not want to even talk with anyone. He is visibly anxious today. He will also have to share a room for the next 2 weeks while he will be in COVID precautions. Andrei is c/o increased frequency of urination........this is a chronic problem day and night and it gets worse when he gets anxious. He feels as though he is completely emptying his bladder when he urinates. He denies any dysuria. He denies pain in the stump and the phantom sensations are better Alert, anxious, appropriate and very polite and willing to talk about how he is feeling right now Lung - CTA but diminished Heart-distant but regular with no gallop and no murmur Abdomen-obese, soft, nontender to palpation, normal bowel sounds heard No edema of the right lower extremity, no calf tenderness. No rashes Incision is clean, dry, intact. There is no periwound erythema and no increased warmth to touch. There is no purulent discharge. Impressions 1. debility post BKA 2. DM II - under good control now 3. CECILE - has gained a lot of weight since the last sleep study and he is fatigued during the day and snoring. No RLS but, he is already on medication at admission to treat RLS. He needs a new titration study and this has been arranged for 05/15/20 at [facility]. 4. HTN - not adequately controlled - I think this is the root of the ARF. BP is increased with any anxiety and he is stressed right now and the BP is increased. Goal is to keep the BP < 130/80 5. Increased K on the most recent BMP - suspect due to hemolysis 6. OAB? DC the Amlodipine and start Metoprolol XL 25 mg daily which hopefully will be better at controlling what seems to be catecholamine induced HTN Plan DC for tomorrow Scheduled for a sleep study on the at [facility]......I do not feel that the pressure is adequate since he has gained a lot of weight since the last sleep study. Check a BMP today since the K was increased on 05/04/20......I suspect this may be due to hemolysis COVID test today in preparation for transition to SNF tomorrow. Dark tolterodine to teat overactive bladder....will need to check PVR X 3 after starting this medication Inpatient E&M: [id number] Subs Hosp L2
[2020-05-06 14:03] LABS: Anion Gap 7 (5-15); BUN 34 mg/dL (7-18); BUN/Creat Ratio 22.2 RATIO (10-20); Calcium,Total 8.9 mg/dL (8.5-10.1); Chloride 105 mmol/L (98-107); Creatinine, Serum 1.53 mg/dL (0.70-1.30); EST Glomerular Filtration Rate 49 mL/min (>60); Est Glom Filt Rate - Afr Amer 60 mL/min (>60); Estimated Creatinine Clearance 51.69 ml/min; Glucose 160 mg/dL (74-106); Potassium 5.4 mmol/L (3.5-5.1); Sodium Level 135 mmol/L (136-145)
[2020-05-06 14:12] VITALS: BP 141/58; PULSE 78
[2020-05-06] MEDS: Metoprolol(XL)Succ 25 MG Tablet PO (14:12)
[2020-05-06] MEDS: oxyCODONE 5 MG Tablet 10 MG PO ×2 (14:18→22:16)
[2020-05-06] MEDS: Tolterodine Tartrate 2 MG CAP.SA PO (15:11)
[2020-05-06 16:45] LABS: Bedside Glucose 123 mg/dL (70-110)
[2020-05-06 18:55] VITALS: BP 143/63; PULSE 88; RESP 16; TEMP 36.6; O2SAT 97
[2020-05-06 21:36] LABS: Bedside Glucose 225 mg/dL (70-110)
[2020-05-06 22:00] VITALS: RESP 17
[2020-05-07] MEDS: Acetaminophen 500 MG Tablet 1000 MG PO ×2 (05:41→12:54)
[2020-05-07] MEDS: Enoxaparin 40 MG/0.4 ML Syringe SC (05:41)
[2020-05-07] MEDS: Levothyroxine 75 MCG Tablet 225 MCG PO (05:41)
[2020-05-07 06:46] LABS: Bedside Glucose 206 mg/dL (70-110)
[2020-05-07 07:50] VITALS: BP 148/71; PULSE 75; RESP 18; O2SAT 99
[2020-05-07] MEDS: Pramipexole Di-HCl 0.125 MG Tablet PO (07:52)
[2020-05-07] MEDS: Ascorbic Acid 500 MG Tablet PO (07:52)
[2020-05-07] MEDS: Pantoprazole Sodium 40 MG Tablet PO (07:52)
[2020-05-07] MEDS: DULoxetine Hcl 60 MG Capsule PO (07:52)
[2020-05-07] MEDS: Multivitamins,Therapeutic Tablet 1 TABLET PO (07:53)
[2020-05-07] MEDS: buPROPion (SR) 150 MG Tablet.SA PO (07:53)
[2020-05-07 08:00] VITALS: TEMP 36.7
[2020-05-07] MEDS: Insulin Lispro 100 UNIT/ML INSULN.PEN SC ×2 (08:06→12:09)
[2020-05-07 08:07] VITALS: PULSE 75
[2020-05-07] MEDS: oxyCODONE 5 MG Tablet 10 MG PO ×2 (08:07→12:55)
[2020-05-07] MEDS: Furosemide 40 MG Tablet PO (08:07)
[2020-05-07] MEDS: Metoprolol(XL)Succ 25 MG Tablet PO (08:07)
--- NOTE | 2020-05-07 08:44 | PCM.TXEXTCAR ---
- Diet 04/29/20 11:59 Diet: Cardiac: Calorie-Controlled Is pt able to select menu?: Yes How many daily calories?: 1800 calorie - Routine Orders/Code Status Enema Type: Fleetz Enema Frequency: Daily PRN Suppository Type: Dulcolax 10mg Suppository Frequency: Daily PRN O2 Liters per Minute: 2 O2 Frequency: PRN Keep PO Greater than or Equal to (%): 90 Routine Lab Work: [facility] - 05/08/20 Code Status: Full Code - Wound(s) lt bka Wound Type: Surgical Incision Dressing Change: Dry Sterile Dressing - Therapies Weight Bearing: Full weight bearing Extremity Affected:: Left Lower - S/P L BKA Physical Therapy: Eval and Treat Occupational Therapy: Eval and Treat - Problem/Diagnosis (1) MRSA (methicillin resistant Staphylococcus aureus) infection Status: Resolved Comment: cultured from the wound on the left foot and he has now had a L BKA Current Visit: No (2) Ulcer of left foot with necrosis of muscle Status: Inactive Comment: he had a BKA Current Visit: No (3) Alcoholism in recovery Status: Chronic Current Visit: No (4) COPD (chronic obstructive pulmonary disease) Status: Chronic Current Visit: No (5) Diabetic neuropathy Status: Chronic Comment: he has numbness in the feet and the tips of the fingers Current Visit: No (6) CAD (coronary artery disease) Status: Chronic Current Visit: No (7) Diabetes mellitus Status: Chronic Current Visit: No (8) Hypothyroidism Status: Chronic Current Visit: No (9) CECILE treated with BiPAP Status: Chronic Comment: PATIENT HAS OWN MACHINE. He is scheduled for a new titration study at [facility] on 05/15 in the sleep lab Current Visit: No (10) HTN (hypertension) Status: Chronic Comment: Had hyperkalemia on Lisinopril 20mg BID.......will try a lower dose when the potassium is WNL Current Visit: No (11) Diabetic foot ulcer associated with type 2 diabetes mellitus Status: Resolved Current Visit: No (12) Uncontrolled diabetes mellitus Status: Chronic Comment: BS's uncontrolled due to excess calories an non-compliance with diet and significant insulin resistance requiring U-500 insulin Current Visit: No (13) Non-compliance Status: Chronic Current Visit: No (14) Hyperlipidemia Status: Chronic Comment: No recent labs available at time of visit. He reports he is not willing to use a statin. Will obtain labs from [facility] provider. No medical records available at time of visit. Current Visit: No (15) Venous stasis dermatitis Status: Chronic Current Visit: No (16) Diabetic neuropathy associated with type 2 diabetes mellitus Status: Chronic Current Visit: No (17) Charcot's joint of foot due to diabetes Status: Inactive Comment: non-complaince with non-wt bearing and now has a BKA Current Visit: No (18) Super obesity Status: Chronic Comment: BMI is 55.2 and that is without the leg that was amputated Current Visit: Yes (19) Chronic renal failure, stage 3 (moderate) Status: Chronic Current Visit: Yes (20) Hyponatremia Status: Resolved Current Visit: Yes (21) Pulmonary hypertension Status: Chronic Current Visit: Yes (22) Grade I diastolic dysfunction Status: Chronic Current Visit: Yes (23) Enlarged RV (right ventricle) Status: Chronic Current Visit: Yes (24) Osteoarthritis Status: Chronic Current Visit: Yes (25) Below knee amputation Status: Acute Comment: left Current Visit: Yes (26) Hyperkalemia Status: Acute Current Visit: Yes (27) Physical debility Status: Acute Comment: due to left BKA Current Visit: Yes - Allergies/Procedures Done in Hospital Allergies/Adverse Reactions: Allergies No Known Allergies Allergy (Verified 04/22/20 06:17) Procedures: None - Type of Care/Length of Stay Estimated LOS: More Than 30 Days Type of Care Needed: Skilled Rehab Potential: Good Prognosis: Good - Additional Orders/Day of Discharge Additional Orders: BMP on 05/08/20. H&P will serve as current which was dated: 04/22/20 Day of Discharge: 05/07/20 - Dietary and Speech Recommendations Dietitian Recommendations/Changes: Will continue to provide 120 cc glucerna shake w/ meals for increased nutrition if consumed -to help w/ BKA healing - Follow Up Care Primary Care Physician: Maico Jones MD [Primary Care Provider] - Please Follow Up With: Dr. Soto or Dr. [facility] When: 2 month for palliation care and to order diabetic shoes. Call [phone] Please Follow Up With: Quoc Bernal DO - for R knee pain Please Follow Up With: Dr. Mando Lundy When: Wednesday Please Follow Up With: Gael Odonnell MD Please Follow Up With: counseling center Please Follow Up With: Sukhi Pyle for LLE prosthesis
--- NOTE | 2020-05-07 09:07 | DS.PCM_ITS ---
Discharge Date and Diagnosis - Problem List Patient Problems: Active and Suspected Problems (Last Reviewed 04/22/20 @ 19:[address] Juhi Polk DO) Below knee amputation (Acute) left Hyperkalemia (Acute) Physical debility (Acute) due to left BKA Date of Admission: 04/21/20 Date of Discharge: 05/07/20 - Primary Discharge Diagnosis Acute Problems: Active Problems (Last Reviewed 04/22/20 @ 19:[address] 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 He is scheduled for a new titration study at [facility] on 05/15 in the sleep lab.....due to fatigue, daytime somnolence and snoring HTN (hypertension) (Chronic) Had hyperkalemia on Lisinopril 20mg BID.......will try a lower dose when the potassium is WNL Uncontrolled diabetes mellitus (Chronic) BS's uncontrolled due to excess calories an non-compliance with diet and significant insulin resistance requiring U-500 insulin Non-compliance (Chronic) Hyperlipidemia (Chronic) No recent labs available at time of visit. He reports he is not willing to use a statin. Will obtain labs from [facility] provider. No medical records available at time of visit. Venous stasis dermatitis (Chronic) Diabetic neuropathy associated with type 2 diabetes mellitus (Chronic) Hospital Course and Treatment Imaging Results: Laboratory Last Values WBC 8.0 K/mm3 (4.4-11.0) 05/04/20 11:00 RBC 4.58 M/mm3 (4.6-6.2) L 05/04/20 11:00 Hgb 12.0 g/dL (13.0-16.5) L 05/04/20 11:00 Hct 40.6 % (40-54) 05/04/20 11:00 MCV 88.6 fL (80-94) 05/04/20 11:00 MCH 26.2 pg (27.0-32.0) L 05/04/20 11:00 MCHC 29.6 g/dL (32-36) L 05/04/20 11:00 RDW Std Deviation 54.8 fl (35.1-43.9) H 05/04/20 11:00 RDW Coeff of Jose 17.1 % (11.6-14.6) H 05/04/20 11:00 Plt Count 338 K/mm3 (150-450) 05/04/20 11:00 MPV 10.1 fl (6.2-12.0) 05/04/20 11:00 Immature Gran % (Auto) 1.000 % (0.0-0.9) H 05/04/20 11:00 Neut % (Auto) 48.4 % (47-70) 05/04/20 11:00 Lymph % (Auto) 37.4 % (19-41) 05/04/20 11:00 [place] % (Auto) 9.8 % (0-10) 05/04/20 11:00 Eos % (Auto) 2.6 % (0-5) 05/04/20 11:00 Baso % (Auto) 0.8 % (0-1) 05/04/20 11:00 Absolute Neuts (auto) 3.9 X10^3/uL (2.0-7.7) 05/04/20 11:00 Absolute Lymphs (auto) 2.98 X10^3/uL (0.83-4.51) 05/04/20 11:00 Total Counted 100 (MANUAL DIFF) 04/23/20 05:20 Neutrophils % (Manual) 64 % (47-70) 04/23/20 05:20 Band Neutrophils % 3 % (0-5) 04/23/20 05:20 Lymphocytes % (Manual) 26 % (19-41) 04/23/20 05:20 Monocytes % (Manual) 7 % (0-10) 04/23/20 05:20 Metamyelocytes % 6 % (0-1) H 04/23/20 05:20 Nucleated RBC % 0 % (0-5) 05/04/20 11:00 Diff Path Review Reviewed 04/23/20 05:20 Reactive Lymphocytes RARE 04/23/20 05:20 Platelet Estimate ADEQUATE (ADEQ) 04/23/20 05:20 RBC Morphology NORM C+C NORMAL (NORM C&C) 04/23/20 05:20 Sodium 135 mmol/L (136-145) L 05/06/20 13:24 Potassium 5.4 mmol/L (3.5-5.1) H 05/06/20 13:24 Chloride 105 mmol/L (98-107) 05/06/20 13:24 Carbon Dioxide 23.0 mmol/L (21.0-32.0) 05/06/20 13:24 Anion Gap 7 (5-15) 05/06/20 13:24 BUN 34 mg/dL (7-18) H 05/06/20 13:24 Creatinine 1.53 mg/dL (0.70-1.30) H 05/06/20 13:24 Estim Creat Clear Calc 51.69 ml/min 05/06/20 13:24 Est GFR (MDRD) Af Amer 60 mL/min (>60) 05/06/20 13:24 Est GFR (MDRD) Non-Af 49 mL/min (>60) L 05/06/20 13:24 BUN/Creatinine Ratio 22.2 RATIO (10-20) H 05/06/20 13:24 Glucose 160 mg/dL (74-106) H 05/06/20 13:24 Hemoglobin A1c 8.1 % (3.8-5.6) H 04/21/20 05:23 Calcium 8.9 mg/dL (8.5-10.1) 05/06/20 13:24 Phosphorus 4.3 mg/dL (2.5-4.9) 04/23/20 05:20 Magnesium 2.1 mg/dL (1.6-2.6) 05/04/20 11:00 Total Bilirubin 0.20 mg/dL (0.20-1.00) 04/23/20 05:20 AST 31 U/L (15-37) 04/23/20 05:20 ALT 32 U/L (16-61) 04/23/20 05:20 Alkaline Phosphatase 90 U/L (45-117) 04/23/20 05:20 Total Protein 8.3 g/dL (6.4-8.2) H 04/23/20 05:20 Albumin 2.3 g/dL (3.2-5.0) L 04/23/20 05:20 Globulin 6.0 g/dL (2.2-4.2) H 04/23/20 05:20 Albumin/Globulin Ratio 0.4 RATIO (0.9-2.4) L 04/23/20 05:20 Triglycerides 268 mg/dL (-199) H 04/23/20 05:20 Cholesterol 200 mg/dL (200) 04/23/20 05:20 LDL Cholesterol 121 mg/dL (0-130) 04/23/20 05:20 VLDL Cholesterol 54 mg/dL (5-40) H 04/23/20 05:20 HDL Cholesterol 25 mg/dL (40-) L 04/23/20 05:20 TSH 2.75 uIU/mL (0.358-3.74) 04/23/20 05:20 Free T4 1.26 ng/dL (0.76-1.46) 04/23/20 05:20 Ur Random Microalbumin 57.7 mg/L (NO RANGE EST.) 04/23/20 22:55 Urine Creatinine 59.70 mg/dL (NO RANGE EST.) 04/23/20 22:55 Microalb/Creat Ratio 96.6 mg/g CRE (<30 mg/g CRE) H 04/23/20 22:55 COVID-19 (SHAYY) Not Detected (Not Detect) 05/06/20 14:24 POC Glucose 206 mg/dL (70-110) H 05/07/20 06:05 Dr. Gael Odonnell - endocrinology Operations: - - L BKA Procedures: None Summary of Care Provided: The patient is a 64 year old M with a PMH of poorly controlled DM, HTN, HLD, CECILE, pulmonary HTN, super obesity, stage 3 CRF, Bipolar disorder, diabetic peripheral polyneuropathy and L Charcot foot who was admitted to [facility] with sepsis due to recurrent infection of the Left foot. He has historically been non- compliant with non-wt bearing on the LLE. He received IV antibiotics and underwent below the knee amputation of the Left leg. The procedure was done by Dr. Lundy. The post operative course was unremarkable. He was transferred to the [facility] rehab unit on 04/21/20. He had completed antibiotics prior to DC from the acute hospital stay. He participated in 3 hours of therapy daily with a goal of having him be proficient in standing and pivoting on different surfaces into a WC and being able to maneuver the wheelchair safely. Abreu catheter was removed shortly after admission to the rehab unit. He had no significant post void residuals. He was started on a MV, Zinc, Vitamin and Ralph BID to promote wound healing. He was restarted on Zyvox by after admission however he was AF and the wound was healing and had no jolly- incisional erythema or DC. Dr. Castillo was consulted and reviewed the chart and examined the stump. He did not feel that antibiotics were indicated and the Zyvox was discontinued. The drain was removed from the stump on 05/01/20. Blood sugars in the hospital were low and his home insulin regimen had to be decreased but, once the infection was controlled the leg was amputated the blood sugars increased. He has a lot of insulin resistance and even with big increases in Lantus and Humalog the blood sugars remained uncontrolled. Dr. Odonnell was consulted and the pt was started on U-500 insulin. Prior to DC the blood sugars on well controlled on a 1800 calorie diet and U-500 100 units TID with meals. BP's were mildly increased, I suspect due to stress. Amlodipine was discontinued and he was started on Metoprolol XL. Lisinopril was continued. Potassium increased while on Lisinopril 20 mg BID and on 05/06/20 the K was 5.4. He was not on a potassium supplement and the blood was not hemolyzed. Creat was 1.53 which was down from 1.96 at admission to the rehab unit. Lisinopril was placed on hold and he was given a dose of Kayexalate on 05/07/20 prior to discharge to SNF. An order was put in for a repeat BMP on 05/08/20. The microalbumin/creatinine ratio was increased at 99 and he should be on an MAURILIO or an ARB. I suspect he would tolerate a lower dose of Lisinopril to protect the kidneys given the elevated microalbumin/creat ratio. When the potassium normalizes I would try 5 mg of Lisinopril daily. Andrei complained of having urinary frequency day and night and stated this had been going on for sometime. Post void residuals were not high and he felt as though he completely emptied his bladder. He was started on tolterodine long-acting 2 mg daily which was very effective in decreasing the frequency of urination. Post void residuals were once again unremarkable. In addition to being bipolar Andrei suffers from Agoraphobia. He will be in a semi-private room at [facility] [place] and he is quite anxious about this. He can not go home because there is no one who can provide the assistance he needs. He is also unable to get into the or through the hallway with a WC. He can not be fitted with a prosthesis yet because the wound has to heal and the stump shrink. He is hopeful that with a prosthesis he will be able to return home. He needs extra emotional support at this time because his stress level is high and his mother he lives with is currently in [place] with her dtr recovering from a hip fracture. Andrei has been following up at the counselling center for many years. I think it is advisable to get him scheduled for an appt in the near future and if this is not possible maybe he could be seen by a psychotherapist at the nursing facility. He is still optimistic that things are going to be better for him and he denies any suicidal ideation. Andrei was transferred to [facility] [place] detention facility on 05/07/20. He will follow up at the wound care center with Dr. Lundy on Sunday 05/13. He will also follow up with his PCP Dr. Jones, Dr. Odonnell to manage diabetes and Dr. Bernal regarding severe OA of the R knee. He will eventually need to be fitted with a prosthesis. He has an appt in thesleep lab at [facility] on 05/15/20 for a titration study. His last sleep study was in 2018 and he has gained a lot of weight since then. He has daytime somnolence, snoring and RLS, despite tx for RLS. He currently uses CPAP with nasal prongs. Alert and oriented X 3. NAD, anxious, pleasant and cooperative Lungs - diminished but, CTA HRRR, distant heart sounds, likely due to body habitus abd - ND, NT, normal BS' no edema of the RLE, no calf tenderness The incision is clean, dry and intact. there is no jolly-incisional erythema, no DC and no odor. the drain was removed on 05/01/20. This note was generated with [employer] dictation software. It may contain incorrect words, spelling, and punctuation that were not noted in checking the note before signing. Patient Problems: Active and Suspected Problems (Last Reviewed 04/22/20 @ 19:[address] Juhi Polk DO) Below knee amputation (Acute) left Hyperkalemia (Acute) Physical debility (Acute) due to left BKA - Physical Exam Vitals/I&O's: Vital Signs Temp Pulse Resp BP Pulse Ox 97.9 F 75 18 148/71 H 99 05/06/20 18:55 05/07/20 08:07 05/07/20 07:50 05/07/20 07:50 05/07/20 07:50 Oxygen Flow Rate (L/min) 2 Oxygen Delivery Method Room Air Weight: 384 lb 11.306 oz Body Mass Index (BMI) 55.9 Finger Stick Blood Glucose 190 Orthostatic Vital Signs Start: 05/04/20 09:38 Freq: Status: Active Protocol: Activity Type Activity Date Activity User E-Sign Co-Sign Detail Recorded Client Recorded Date Recorded By Document 05/04/20 09:39 [facility] [id number] 05/04/20 09:40 [facility] 05/04/20 09:39 Orthostatic Vitals Sitting -Blood Pressure (90/60-120/80 mm Hg) 151/96 H -Extremity Use Left Arm -Pulse Rate (60-100 beats/min) 87 Lying -Blood Pressure (90/60-120/80 mm Hg) 136/72 H -Extremity Use Left Arm -Pulse Rate (60-100 beats/min) 85 Intake and Output for Last 24 Hours 05/05/20 05/06/20 05/07/20 23:59 23:59 23:59 Intake Total 2880 / 2880 3160 / 3160 120 / 120 Output Total 2650 / 2650 3075 / 3075 Balance 230 / 230 85 / 85 120 / 120 Laboratory Results 05/06/20 11:25: POC Glucose 198 H 05/06/20 13:24: Sodium 135 L, Potassium 5.4 H, Chloride 105, Carbon Dioxide 23.0, Anion Gap 7, BUN 34 H, Creatinine 1.53 H, Estim Creat Clear Calc 51.69, Est GFR (MDRD) Af Amer 60, Est GFR (MDRD) Non-Af 49 L, BUN/Creatinine Ratio 22.2 H, Glucose 160 H, Calcium 8.9 05/06/20 14:24: COVID-19 (SHAYY) Not Detected 05/06/20 16:38: POC Glucose 123 H 05/06/20 21:29: POC Glucose 225 H 05/07/20 06:05: POC Glucose 206 H Current Medications Acetaminophen (Tylenol) 1,000 mg PO Q8 [facility] Last Admin: 05/07/20 05:41 Dose: 1,000 mg Documented by: Ascorbic Acid (Vitamin C) 500 mg PO BIDCM [facility] Last Admin: 05/07/20 07:52 Dose: 500 mg Documented by: Bisacodyl (Dulcolax) 10 mg RECTAL .PRN X 1 PRN PRN Reason: Constipation Bupropion HCl (Wellbutrin Sr (150mg Tablets)) 150 mg PO BID [facility] Last Admin: 05/07/20 07:53 Dose: 150 mg Documented by: Dextrose (D50w Syringe) 0 gm IV X1 PRN; Protocol PRN Reason: Hypoglycemia Duloxetine HCl (Cymbalta) 60 mg PO DAILY [facility] Last Admin: 05/07/20 07:52 Dose: 60 mg Documented by: Enoxaparin Sodium (Lovenox) 40 mg SC BID@0600,1800 [facility] Last Admin: 05/07/20 05:41 Dose: 40 mg Documented by: Fluticasone Propionate (Flonase Nasal [place]) 2 spray NASAL DAILY PRN PRN PRN Reason: SINUS CONGESTION Last Admin: 05/05/20 06:49 Dose: 1 sprays Documented by: Glucagon () 1 mg IM .X1 PRN PRN Reason: Hypoglycemia Sodium Chloride () 250 mls @ 15 mls/hr IV .[id number] PRN PRN Reason: Saline Flush Last Infusion: 04/26/20 13:55 Dose: Infused Documented by: Insulin Human Lispro (Humalog Kwikpen ([facility])) 0 unit SC TIDAC [facility]; Protocol Last Admin: 05/07/20 08:06 Dose: 3 u Documented by: Insulin Human Regular (Humulin R U-500 ([facility])) 100 units SC TIDAC [facility] Last Admin: 05/07/20 07:58 Dose: 100 u Documented by: Levothyroxine Sodium (Synthroid) 225 mcg PO DAILY@0600 [facility] Last Admin: 05/07/20 05:41 Dose: 225 mcg Documented by: Magnesium Hydroxide (Milk Of Magnesia) 30 ml PO .PRN X 1 PRN PRN Reason: Constipation Metoprolol Succinate (Toprol Xl (Beta [place])) 25 mg PO BID [facility] Last Admin: 05/07/20 08:07 Dose: 25 mg Documented by: [facility]ivit[facility] ([facility]itamin) [facility] Last Admin: 05/07/20 07:53 Dose: 1 tablet Documented by: Oxycodone HCl (Oxyir) 10 mg PO Q4H PRN PRN PRN Reason: Pain Score 6-10/10 Last Admin: 05/07/20 08:07 Dose: 10 mg Documented by: Pantoprazole Sodium (Protonix) 40 mg PO BID [facility] Last Admin: 05/07/20 07:52 Dose: 40 mg Documented by: Pramipexole Dihydrochloride (Mirapex) 0.125 mg PO BID [facility] Last Admin: 05/07/20 07:52 Dose: 0.125 mg Documented by: Senna/Docusate Sodium (Senokot-S, Jolly-Colace) 2 tablet PO BID [facility] Last Admin: 05/07/20 07:55 Dose: Not Given Documented by: Sodium Chloride () 10 - 40 ml IV UD PRN PRN Reason: SALINE FLUSH Last Admin: 04/26/20 01:03 Dose: 10 ml Documented by: Zinc Sulfate (Zinc Sulfate) [facility] Last Admin: 05/07/20 07:52 Dose: 220 mg Documented by: Weight Bearing Status: Full weight bearing - right lower extremity with protective and supportive shoe. Use assistive device with left lower extremity recent surgery status per surgeon, Dr. Lundy) Call your doctor if your incision/area has: Increased Redness Call your doctor if you observe: Fever of 101 or Higher, Calf discomfort, - - new ulcer formation or pain Home Medications: Medications to take at Discharge Ropinirole HCl [Requip] 0.25 mg PO BID 08/17/16 fluticasone propionate 50 mcg/actuation nasal spray,suspension 2 spray INTRANASAL DAILY PRN PRN 02/14/18 Duloxetine HCl 60 mg PO DAILY 03/21/20 Omeprazole 40 mg PO BID 03/21/20 buPROPion SR [Wellbutrin SR (150mg tablets)] 150 mg PO BID 03/21/20 Levothyroxine [Synthroid] 225 mcg PO DAILY@0600 04/21/20 Oxycodone [Oxyir] 10 mg PO Q4H PRN PRN 7 Days tab 04/21/20 Acetaminophen [Tylenol] 1,000 mg PO Q8H PRN PRN #0 05/07/20 Ascorbic Acid [Vitamin C] 500 mg PO BIDCM tab 05/07/20 Bisacodyl [Dulcolax] 10 mg RECTAL .PRN X 1 PRN suppos. 05/07/20 Insulin U-500 [Humulin R U-500 ([facility])] 100 units SUBCUT TIDAC pen 05/07/20 Ralph (unflavored) [Ralph Packet] 1 packet PO BIDCM packet 05/07/20 Magnesium Hydroxide [Milk Of Magnesia] 30 ml PO .PRN X 1 PRN udc 05/07/20 Metoprolol(XL)Succ [Toprol Xl (Beta [place])] 25 mg PO BID tab 05/07/20 Multivitamins,Therapeutic [Multivitamin] 1 tab PO DAILYCM tab 05/07/20 Oxycodone [Oxyir] 5 - 10 mg PO Q6H PRN PRN 7 Days #40 tab 05/07/20 Senna/Docusate Sodium [Senokot-S] 2 tab PO BID tab 05/07/20 Tolterodine Tartrate [Tolterodine Tartrate ER] 2 mg PO DAILY #1 cap.er.24h 05/07/20 Zinc Sulfate (50mg elemental) [Zinc Sulfate] 220 mg PO DAILYCM cap 05/07/20 Following Prescrptions Were Given to Patient: Oxycodone [Oxyir] 5 - 10 mg PO Q6H PRN PRN 7 Days #40 tab PRN Reason: Pain Score 6-10/10 Prescription Printed Tolterodine Tartrate [Tolterodine Tartrate ER] 2 mg PO DAILY #1 cap.er.24h Primary Care Physician: Maico Jones MD [Primary Care Provider] - Please Follow Up With: Dr. Soto or Dr[facility] When: 2 month for palliation care and to order diabetic shoes. Call [phone] Please Follow Up With: Quoc Bernal DO - for R knee pain Please Follow Up With: Dr. Mando Lundy When: Wednesday Please Follow Up With: Gael Odonnell MD Please Follow Up With: counseling center Please Follow Up With: Sukhi Pyle for LLE prosthesis Disposition: Group Home facility - [facility] [place] Minutes spent on discharge:: 45 Patient Condition:: Good Medical Necessity - Tobacco Use Smoking Status: Former smoker Tobacco Use: Non-smoker Meaningful Use Info Meaningful Use Diagnoses (Choose all that apply): None applicable Inpatient E&M: [id number] Disch Hosp
--- NOTE | 2020-05-07 09:43 | NURSING ---
Report given to [facility] nurse
[2020-05-07] MEDS: Sodium Polystyrene Sulfonate 15 GM/60 ML UDC 30 GM PO (10:02)
[2020-05-07 11:30] LABS: Bedside Glucose 238 mg/dL (70-110)
[2020-05-07 13:00] VITALS: BP 148/71; PULSE 75; RESP 18; TEMP 36.7; O2SAT 99
--- NOTE | 2020-05-07 13:00 | NURSING ---
Discharge to [facility] at this time with [employer] transport [place].
== END 2020-05-07 13:00 | disposition skilled nursing facility (03) | DRG 560 ==
PROVIDERS: Admitting Provider Internal Medicine; PCP Internal Medicine; Visit Provider Internal Medicine
DX: Z47.81 Encounter for orthopedic aftercare following surgical amputation (principal); Z68.43 Body mass index [BMI] 50.0-59.9, adult; E87.1 Hypo-osmolality and hyponatremia; Z89.512 Acquired absence of left leg below knee; I25.10 Atherosclerotic heart disease of native coronary artery without angina pectoris; G47.33 Obstructive sleep apnea (adult) (pediatric); E11.22 Type 2 diabetes mellitus with diabetic chronic kidney disease; N18.3 Chronic kidney disease, stage 3 (moderate); I12.9 Hypertensive chronic kidney disease with stage 1 through stage 4 chronic kidney disease, or unspecified chronic kidney disease; E11.42 Type 2 diabetes mellitus with diabetic polyneuropathy; E11.65 Type 2 diabetes mellitus with hyperglycemia; E03.9 Hypothyroidism, unspecified; Z91.11 Patient's noncompliance with dietary regimen; E78.5 Hyperlipidemia, unspecified; E11.610 Type 2 diabetes mellitus with diabetic neuropathic arthropathy; Z86.14 Personal history of Methicillin resistant Staphylococcus aureus infection; F10.21 Alcohol dependence, in remission; J44.9 Chronic obstructive pulmonary disease, unspecified; E66.01 Morbid (severe) obesity due to excess calories; I27.20 Pulmonary hypertension, unspecified; F31.9 Bipolar disorder, unspecified; K21.9 Gastro-esophageal reflux disease without esophagitis; B35.1 Tinea unguium; M20.5X1 Other deformities of toe(s) (acquired), right foot; E87.5 Hyperkalemia; F40.00 Agoraphobia, unspecified
CPT/HCPCS: 36415; 80048; 80053; 80061; 82043; 82570; 82962; 83036; 83735; 84100; 84439; 84443; 85025; 87635; 97110; 97116; 97162; 97166; 97530; 97535; 97542; 97802; 99251; G2023; J2020; J7030; J7050; A4216; G0463; U0003

== ENCOUNTER → 2020-05-15 20:22 | Outpatient (CLI) | payer MEDICARE, OTHER, SELFPAY ==
[2020-04-21 16:54] VITALS: BMI 55.9
== END ==
PROVIDERS: PCP Internal Medicine; Visit Provider Internal Medicine
DX: G47.33 Obstructive sleep apnea (adult) (pediatric) (principal)
CPT/HCPCS: 95811

== ENCOUNTER 2020-05-27 15:00 | Outpatient (RCR) | payer MEDICARE, OTHER, SELFPAY ==
[2020-04-21 16:54] VITALS: BMI 55.9
[2020-05-20 13:26] VITALS: BP 123/69; PULSE 78; RESP 18; TEMP 36.8; BMI 53.6
--- NOTE | 2020-05-20 13:36 | WC ---
SUTURES INTACT TO L STUMP POST OP
--- NOTE | 2020-05-20 16:35 | PN.PCM_ITS ---
Type of Wound Date of Service: 05/20/20 Chief Complaint: Nonhealing infected diabetic ulcers left foot s/p left BKA. History of Wound: Surgery 04/19/20 - Left below knee amputation. Wound care - antibiotic ointment to suture line followed by compression gauze dressing. Operative culture - Streptococcus agalactiae, Staphylococcus simulans, Methicillin resistant, and Corynebacterium striatum. Preop culture showed E. coli, Proteus penneri, MRSA, Streptococcus agalactiae, and Corynebacterium st riatum. He was treated with Vancomycin and Zosyn and then Cefdinir and Zyvox and has finished them. Pathology - acute osteomyelitis. Prealbumin from 04/20/20 was 9.0. Encourage nutritional supplementation with protein to help the healing process. HgbA1c from 04/21/20 was 8.1. Today he denies fever. His appetite is ok. Progress of Wound: Suture line intact. - Physical Exam Vital Signs Temp Pulse Resp BP 98.3 F 78 18 123/69 H 05/20/20 13:26 05/20/20 13:26 05/20/20 13:26 05/20/20 13:26 Wound Measurements and Assessment WC - Nurse 1 - General Ulcer Measurement Start: 05/20/20 13:25 Freq: Status: Active Protocol: Activity Type Activity Date Activity User E-Sign Co-Sign Detail Recorded Client Recorded Date Recorded By Document 05/20/20 13:26 [facility] [id number] 05/20/20 13:36 [facility] 05/20/20 13:26 Wound Center Nurse 1 [Ulcer Assessment] #1- L STUMP POST OP -Combined with other wound No -Current Size (cm) - Length 0.1 -Current Size (cm) - Width 0.1 -Current Size (cm) - Depth 0.1 -Total Square Cm 0.01 -Date of Last Picture (Recall this 05/20/20 field) -Photo Taken Yes -Epithelialization None Present -Tunneling No -Undermining/Tunneling No -Circular Undermining No -Exudate Amt None Present -Texture (Jolly-wound Skin Appearance) Assessed -Moisture (Jolly-wound Skin Appearance Assessed,Dry/ ) Scaly -Color (Jolly-wound Skin Appearance) Assessed -Temperature (Jolly-wound Skin No Abnormality Appearance) (Pt Warm) -Tenderness on Palpation (Jolly-wound No Skin Appearance) -Ulcer Cleansing Rinsed/ Irrigated with Saline -Foul Odor after Cleansing No -Anesthetic Used 4% Lidocaine Solution - Nurse 2 - General Ulcer CM Notes Start: 05/20/20 13:25 Freq: Status: Active Protocol: Activity Type Activity Date Activity User E-Sign Co-Sign Detail Recorded Client Recorded Date Recorded By Document 05/20/20 14:37 [id number] 05/20/20 14:39 05/20/20 14:37 Wound Center Nurse 2 [Procedure/Treatment] -Correct Patient No -Correct Side, Site, Position No -Correct Procedure No -Procedure Performed No -Post Debridement Size (cm) - Length 0.1 -Post Debridement Size (cm) - Width 0.1 -Post Debridement Size (cm) - Depth 0.1 -Total Square Cm 0.01 -Wound/Ulcer Outcome Not Healed [See Physician Procedure note for Specifics] Pain Scale: 0-10 Numeric [Pain] -Is Patient Pain Free? Yes Debridement Note Post-Debridement Measurements/Treatment - Nurse 2 - General Ulcer CM Notes Start: 05/20/20 13:25 Freq: Status: Active Protocol: Activity Type Activity Date Activity User E-Sign Co-Sign Detail Recorded Client Recorded Date Recorded By Document 05/20/20 14:37 [id number] 05/20/20 14:39 05/20/20 14:37 Wound Center Nurse 2 #1- L STUMP POST OP -Correct Patient No -Correct Side, Site, Position No -Correct Procedure No -Procedure Performed No -Post Debridement Size (cm) - Length 0.1 -Post Debridement Size (cm) - Width 0.1 -Post Debridement Size (cm) - Depth 0.1 -Total Square Cm 0.01 -Wound/Ulcer Outcome Not Healed Pain Scale: 0-10 Numeric Is Patient Pain Free? Yes Wound debrided: #1 Left BKA stump. Laterality: Left Wound Grade/Stage: 4. No debridement was completed today - he had recent surgery on 04/19/20. The sutures were removed today. Assessment/Plan Assessment: 1. Nonhealing infected diabetic ulcers left foot. 2. MRSA. 3. Diabetes mellitus. 4. Obesity. 5. s/p left BKA. Plan: His left BKA stump incision is dry and intact. Minimal swelling noted. Sutures were removed today. He recently saw his PCP who placed him on Doxycycline for 7 days because the incision was a little red. 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 Operative culture showed Streptococcus agalactiae, Staphylococcus simulans, Methicillin resistant, and Corynebacterium striatum. Preop culture showed E. coli, Proteus penneri, MRSA, Streptococcus agalactiae, and Corynebacterium striatum. He was treated with Vancomycin and Zosyn and then Cefdinir and Zyvox and has finished them. Prealbumin from 04/20/20 was 9.0. Encourage nutritional supplementation with protein to help the healing process. HgbA1c from 04/21/20 was 8.1. Followup one week. [id number]: [id number] Global Visit - ICD-10 - Z48.89, L97.523, E11.69, A49.02, E11.40, E66.01, E11.9, Z89.512
[2020-05-27 15:13] VITALS: BP 121/66; PULSE 72; RESP 18; TEMP 36.3; BMI 53.6
--- NOTE | 2020-05-27 16:08 | PN.PCM_ITS ---
(1) Below knee amputation Status: Chronic Code(s): S88.119A - Complete traumatic amputation at level between knee and ankle, unspecified lower leg, initial encounter Comment: left (2) Physical debility Status: Chronic Code(s): R53.81 - Other malaise Comment: due to left BKA (3) Other hereditary and idiopathic neuropathies Status: Chronic Code(s): G60.8 - Other hereditary and idiopathic neuropathies (4) Super obesity Status: Chronic Code(s): E66.9 - Obesity, unspecified Comment: BMI is 55.2 and that is without the leg that was amputated (5) Chronic renal failure, stage 3 (moderate) Status: Chronic Code(s): N18.3 - Chronic kidney disease, stage 3 (moderate) (6) Diabetes mellitus Status: Chronic Qualifiers: Diabetes mellitus type: type 2 Diabetes mellitus complication status: with neurologic complications Diabetes mellitus complication detail: with polyneuropathy Code(s): E11.9 - Type 2 diabetes mellitus without complications Type of Wound Date of Service: 05/27/20 Chief Complaint: Nonhealing infected diabetic ulcers left foot s/p left BKA. History of Wound: Surgery 04/19/20 - Left below knee amputation. Wound care - collagen hydrogel to suture line followed by compression gauze dressing. Operative culture - Streptococcus agalactiae, Staphylococcus simulans, Methicillin resistant, and Corynebacterium striatum. Preop culture showed E. coli, Proteus penneri, MRSA, Streptococcus agalactiae, and Corynebacterium striatum. He was treated with Vancomycin and Zosyn and then Cefdinir and Zyvox and has finished them. Pathology - acute osteomyelitis. Prealbumin from 04/20/20 was 9.0. Encourage nutritional supplementation with protein to help the healing process. HgbA1c from 04/21/20 was 8.1. Today he denies fever. His appetite is ok. Progress of Wound: Remaining sutures removed. Stable incision. - Physical Exam Vital Signs Temp Pulse Resp BP 97.3 F L 72 18 121/66 H 05/27/20 15:13 05/27/20 15:13 05/27/20 15:13 05/27/20 15:13 General: Alert, Oriented x3, Cooperative HEENT: Atraumatic Oral: Moist Mucosa Lungs: Normal air movement Cardiovascular: Regular rate Extremities: Capillary Refill Less than 3 Seconds, Edema - left stump with edema Skin: Incision - Remaining sutures removed. Removed the scabbed areas and there are a few beefy pink areas remaining. Wound Measurements and Assessment WC - Nurse 1 - General Ulcer Measurement Start: 05/20/20 13:25 Freq: Status: Active Protocol: Activity Type Activity Date Activity User E-Sign Co-Sign Detail Recorded Client Recorded Date Recorded By Document 05/27/20 15:13 FEMI [id number] 05/27/20 15:19 FEMI 05/27/20 15:13 Wound Center Nurse 1 [Ulcer Assessment] #1- L STUMP POST OP cluster -Combined with other wound No -Current Size (cm) - Length 0 -Current Size (cm) - Width 0 -Current Size (cm) - Depth 0 -Total Square Cm 0 -Photo Taken No -Epithelialization None Present -Tunneling No -Undermining/Tunneling No -Circular Undermining No -Exudate Amt None Present -Granulation Amt Large (67-100%) -Granulation Quality [place] -Slough/Fibrin No -Necrosis Amt None Present (0 %) -Moisture (Jolly-wound Skin Appearance Dry/Scaly ) -Temperature (Jolly-wound Skin No Abnormality Appearance) (Pt Warm) -Ulcer Cleansing Rinsed/ Irrigated with Saline -Foul Odor after Cleansing No WC - Nurse 2 - General Ulcer CM Notes Start: 05/20/20 13:25 Freq: Status: Active Protocol: Activity Type Activity Date Activity User E-Sign Co-Sign Detail Recorded Client Recorded Date Recorded By Document 05/27/20 15:49 [id number] 05/27/20 15:52 AWAIS 05/27/20 15:49 Wound Center Nurse 2 [Procedure/Treatment] -Time 15:51 -Correct Patient Yes -Correct Side, Site, Position Yes -Correct Procedure Yes -Procedure Performed Yes -Type of Procedure Debridement -Clinical Debridement Selective -Post Debridement Size (cm) - Length 0.7 -Post Debridement Size (cm) - Width 6.2 -Post Debridement Size (cm) - Depth 0.1 -Total Square (cm) 4.34 -Wound/Ulcer Outcome Not Healed -Ulcer Cleansing Rinsed/ Irrigated with Saline -Foul Odor after Cleansing No -Bioengineered Tissue No -Bleeding Controlled with Pressure -Offloading No -Treatment Response Procedure Tolerated Well [See Physician Procedure note for Specifics] Pain Scale: 0-10 Numeric [Pain] -Is Patient Pain Free? Yes Musculoskeletal: Tenderness Neurological: Cranial nerves II-XII grossly intact Psych/Mental Status: Normal Affect, Appropriate Debridement Note Post-Debridement Measurements/Treatment WC - Nurse 2 - General Ulcer CM Notes Start: 05/20/20 13:25 Freq: Status: Active Protocol: Activity Type Activity Date Activity User E-Sign Co-Sign Detail Recorded Client Recorded Date Recorded By Document 05/20/20 14:37 [id number] 05/20/20 14:39 Document 05/27/20 15:49 [id number] 05/27/20 15:52 05/20/20 05/27/20 14:37 15:49 Wound Center Nurse 2 #1- L STUMP POST OP cluster -Time 15:51 -Correct Patient No Yes -Correct Side, Site, Position No Yes -Correct Procedure No Yes -Procedure Performed No Yes -Type of Procedure Debridement -Clinical Debridement Selective -Post Debridement Size (cm) - Length 0.1 0.7 -Post Debridement Size (cm) - Width 0.1 6.2 -Post Debridement Size (cm) - Depth 0.1 0.1 -Total Square (cm) 0.01 4.34 -Wound/Ulcer Outcome Not Healed Not Healed -Ulcer Cleansing Rinsed/ Irrigated with Saline -Foul Odor after Cleansing No -Bioengineered Tissue No -Bleeding Controlled with Pressure -Offloading No -Treatment Response Procedure Tolerated Well Pain Scale: 0-10 Numeric Is Patient Pain Free? Yes Yes Wound debrided: BKA incision Laterality: Left Type of Debridement: Selective debridement Anesthesia Used: 4% Lidocaine Solution Depth: Down to and including healthy tissue Percentage of wound debrided: 30 Tissue Removed: Selective debridement to remove the dry scabbing areas Severity: Limited To Skin Breakdown Amount of bleeding with debridement: None Patient tolerated procedure well Assessment/Plan Assessment: 1. Nonhealing infected diabetic ulcers left foot. 2. MRSA. 3. Diabetes mellitus. 4. Obesity. 5. s/p left BKA. Plan: His left BKA stump incision is dry and intact. Minimal swelling noted. Remaining sutures were removed today. Selective debridement was performed to remove the dry scabbing areas. Wound care- will have patient place collagen hydrogel daily on the incision small areas. He recently saw his PCP who placed him on Doxycycline for 7 days because the incision was a little red. Continue gauze dressing and tubigrip for compression in preparation for the stump machine rug cleaner. Operative culture showed Streptococcus agalactiae, Staphylococcus simulans, Methicillin resistant, and Corynebacterium striatum. Preop culture showed E. coli, Proteus penneri, MRSA, Streptococcus agalactiae, and Corynebacterium striatum. He was treated with Vancomycin and Zosyn and then Cefdinir and Zyvox and has finished them. Prealbumin from 04/20/20 was 9.0. Encourage nutritional supplementation with protein to help the healing process. HgbA1c from 04/21/20 was 8.1. Followup two weeks. [id number]: [id number] Global Visit
== END 2020-05-31 23:59 ==
LOC: WC 15:00
PROVIDERS: PCP Internal Medicine; Visit Provider Podiatrist
DX: E11.22 Type 2 diabetes mellitus with diabetic chronic kidney disease (principal); Z86.14 Personal history of Methicillin resistant Staphylococcus aureus infection; E66.9 Obesity, unspecified; Z89.512 Acquired absence of left leg below knee; N18.3 Chronic kidney disease, stage 3 (moderate)
CPT/HCPCS: 99213; G0463

== ENCOUNTER 2020-06-11 00:34 | Outpatient (RCR) | payer MEDICARE, OTHER, SELFPAY ==
[2020-06-01 00:34] VITALS: BP 121/66; PULSE 72; RESP 18; TEMP 36.3
[2020-06-10 14:06] VITALS: BMI 53.6
== END 2020-07-01 23:59 ==
LOC: WC 00:34
PROVIDERS: PCP Internal Medicine; Visit Provider Podiatrist
DX: T87.89 Other complications of amputation stump (principal); Y83.8 Other surgical procedures as the cause of abnormal reaction of the patient, or of later complication, without mention of misadventure at the time of the procedure; E66.01 Morbid (severe) obesity due to excess calories; I51.9 Heart disease, unspecified; E11.42 Type 2 diabetes mellitus with diabetic polyneuropathy; T87.81 Dehiscence of amputation stump; Z86.14 Personal history of Methicillin resistant Staphylococcus aureus infection
CPT/HCPCS: 11042

== ENCOUNTER 2020-07-01 11:00 | Outpatient (RCR) | payer MEDICARE, OTHER, SELFPAY ==
[2020-06-10 14:06] VITALS: BP 135/74; PULSE 72; RESP 20; TEMP 36.6; BMI 53.6
--- NOTE | 2020-06-10 15:33 | PCM.WC.PN ---
(1) Status post below-knee amputation of left lower extremity Status: Chronic Code(s): Z89.512 - Acquired absence of left leg below knee (2) Physical debility Status: Chronic Code(s): R53.81 - Other malaise Comment: due to left BKA (3) Super obesity Status: Chronic Code(s): E66.9 - Obesity, unspecified Comment: BMI is 55.2 and that is without the leg that was amputated (4) Grade I diastolic dysfunction Status: Chronic Code(s): I51.9 - Heart disease, unspecified (5) Osteoarthritis Status: Chronic Code(s): M19.90 - Unspecified osteoarthritis, unspecified site (6) Diabetes mellitus Status: Chronic Qualifiers: Diabetes mellitus type: type 2 Diabetes mellitus complication status: with neurologic complications Diabetes mellitus complication detail: with polyneuropathy Code(s): E11.9 - Type 2 diabetes mellitus without complications Type of Wound Date of Service: 06/10/20 Chief Complaint: Nonhealing infected diabetic ulcers left foot s/p left BKA. History of Wound: Surgery 04/19/20 - Left below knee amputation. Wound care - Collagen hydrogel covered with adaptic the the center of the left stump incision where there is separation. Operative culture - Streptococcus agalactiae, Staphylococcus simulans, Methicillin resistant, and Corynebacterium striatum. Preop culture showed E. coli, Proteus penneri, MRSA, Streptococcus agalactiae, and Corynebacterium striatum. He was treated with Vancomycin and Zosyn and then Cefdinir and Zyvox and has finished them. Pathology - acute osteomyelitis. Prealbumin from 04/20/20 was 9.0. Encourage nutritional supplementation with protein to help the healing process. HgbA1c from 04/21/20 was 8.1. Today he denies fever. His appetite is ok. Progress of Wound: Small opening in the center of the left stump incision. - Physical Exam Vital Signs Temp Pulse Resp BP 97.9 F 72 20 H 135/74 H 06/10/20 14:06 06/10/20 14:06 06/10/20 14:06 06/10/20 14:06 General: Alert, Oriented x3, Cooperative HEENT: Atraumatic Oral: Moist Mucosa Lungs: Normal air movement Cardiovascular: Regular rate Abdomen: Obese Extremities: Capillary Refill Less than 3 Seconds, Edema Skin: Incision - Left stump incision with a small separation in the center of the incision. Wound Measurements and Assessment WC - Nurse 1 - General Ulcer Measurement Start: 06/10/20 14:06 Freq: Status: Active Protocol: Activity Type Activity Date Activity User E-Sign Co-Sign Detail Recorded Client Recorded Date Recorded By Document 06/10/20 14:06 ARELI [id number] 06/10/20 14:13 DL 06/10/20 14:06 Wound Center Nurse 1 [Ulcer Assessment] #1- L STUMP POST OP cluster -Current Size (cm) - Length 0.4 -Current Size (cm) - Width 0.4 -Current Size (cm) - Depth 0.2 -Total Square Cm 0.16 -Photo Taken No -Exudate Amt None Present -Wound Margin Flat & Intact -Granulation Amt Small (1-33%) -Granulation Quality Red -Necrosis Amt None Present (0 %) -Structure Exposed N/A -Texture (Jolly-wound Skin Appearance) Scarring -Moisture (Jolly-wound Skin Appearance No Abnormality ) -Color (Jolly-wound Skin Appearance) No Abnormality -Temperature (Jolly-wound Skin No Abnormality Appearance) (Pt Warm) -Tenderness on Palpation (Jolly-wound No Skin Appearance) -Ulcer Cleansing Rinsed/ Irrigated with Saline -Foul Odor after Cleansing No -Anesthetic Used 4% Lidocaine Solution - Nurse 2 - General Ulcer CM Notes Start: 06/10/20 14:06 Freq: Status: Active Protocol: Activity Type Activity Date Activity User E-Sign Co-Sign Detail Recorded Client Recorded Date Recorded By Document 06/10/20 14:40 AWAIS [id number] 06/10/20 14:44 AWAIS 06/10/20 14:40 Wound Center Nurse 2 [Procedure/Treatment] -Time 14:41 -Correct Patient Yes -Correct Side, Site, Position Yes -Correct Procedure Yes -Procedure Performed Yes -Type of Procedure Debridement -Clinical Debridement Subcutaneous -Post Debridement Size (cm) - Length 0.8 -Post Debridement Size (cm) - Width 6.3 -Post Debridement Size (cm) - Depth 0.1 -Total Square (cm) 5.04 -Wound/Ulcer Outcome Not Healed -Ulcer Cleansing Rinsed/ Irrigated with Saline -Foul Odor after Cleansing No -Bioengineered Tissue No -Bleeding Controlled with Pressure -Offloading No -Treatment Response Procedure Tolerated Well [See Physician Procedure note for Specifics] Pain Scale: 0-10 Numeric [Pain] -Is Patient Pain Free? Yes Musculoskeletal: No Tenderness to Palpation of Joints or Extremities Neurological: Cranial nerves II-XII grossly intact Psych/Mental Status: Normal Affect Debridement Note Post-Debridement Measurements/Treatment WC - Nurse 2 - General Ulcer CM Notes Start: 06/10/20 14:06 Freq: Status: Active Protocol: Activity Type Activity Date Activity User E-Sign Co-Sign Detail Recorded Client Recorded Date Recorded By Document 06/10/20 14:40 AWAIS [id number] 06/10/20 14:44 AWAIS 06/10/20 14:40 Wound Center Nurse 2 #1- L STUMP POST OP cluster -Time 14:41 -Correct Patient Yes -Correct Side, Site, Position Yes -Correct Procedure Yes -Procedure Performed Yes -Type of Procedure Debridement -Clinical Debridement Subcutaneous -Post Debridement Size (cm) - Length 0.8 -Post Debridement Size (cm) - Width 6.3 -Post Debridement Size (cm) - Depth 0.1 -Total Square (cm) 5.04 -Wound/Ulcer Outcome Not Healed -Ulcer Cleansing Rinsed/ Irrigated with Saline -Foul Odor after Cleansing No -Bioengineered Tissue No -Bleeding Controlled with Pressure -Offloading No -Treatment Response Procedure Tolerated Well Pain Scale: 0-10 Numeric Is Patient Pain Free? Yes Wound debrided: Stump incision separation in the center of the incision Laterality: Left Type of Debridement: Excisional debridement Anesthesia Used: 4% Lidocaine Solution Depth: Down to and including healthy tissue, in the subcutaneous layer Percentage of wound debrided: 100 Instrument Used: 3mm curette Tissue Removed: Subcutaneous tissue and slough Severity: Fat Layer Exposed Amount of bleeding with debridement: Mild Bleeding Controlled with: Pressure Patient tolerated procedure well Assessment/Plan Assessment: 1. Nonhealing infected diabetic ulcers left foot. 2. MRSA. 3. Diabetes mellitus. 4. Obesity. 5. s/p left BKA. Plan: His left BKA stump incision is dry and intact. Minimal swelling noted. Small amount of separation in the center of the incision. Wound care - Collagen hydrogel covered with adaptic the the center of the left stump incision where there is separation. Continue gauze dressing and tubigrip for compression in preparation for the stump medical art therapist. He states he is waiting for a fitting for his stump from [employer]. Operative culture showed Streptococcus agalactiae, Staphylococcus simulans, Methicillin resistant, and Corynebacterium striatum. Preop culture showed E. coli, Proteus penneri, MRSA, Streptococcus agalactiae, and Corynebacterium striatum. He was treated with Vancomycin and Zosyn and then Cefdinir and Zyvox and has finished them. Prealbumin from 04/20/20 was 9.0. Encourage nutritional supplementation with protein to help the healing process. HgbA1c from 04/21/20 was 8.1. Followup two weeks. 111xxx-113xx: [id number] Global Visit
[2020-07-01 11:16] VITALS: BP 141/79; PULSE 76; RESP 22; TEMP 36.9; BMI 53.6
--- NOTE | 2020-07-01 15:28 | PCM.WC.PN ---
(1) Non-pressure ulcer of stump of below knee amputation of left lower extremity Status: Chronic Code(s): T87.89 - Other complications of amputation stump; L97.929 - Non-pressure chronic ulcer of unspecified part of left lower leg with unspecified severity (2) Status post below-knee amputation of left lower extremity Status: Chronic Code(s): Z89.512 - Acquired absence of left leg below knee (3) Physical debility Status: Chronic Code(s): R53.81 - Other malaise Comment: due to left BKA (4) Super obesity Status: Chronic Code(s): E66.9 - Obesity, unspecified Comment: BMI is 55.2 and that is without the leg that was amputated (5) Grade I diastolic dysfunction Status: Chronic Code(s): I51.9 - Heart disease, unspecified (6) Osteoarthritis Status: Chronic Code(s): M19.90 - Unspecified osteoarthritis, unspecified site (7) Diabetes mellitus Status: Chronic Qualifiers: Diabetes mellitus type: type 2 Diabetes mellitus complication status: with neurologic complications Diabetes mellitus complication detail: with polyneuropathy Code(s): E11.9 - Type 2 diabetes mellitus without complications Type of Wound Date of Service: 07/01/20 Chief Complaint: Nonhealing infected diabetic ulcers left foot s/p left BKA. History of Wound: Surgery 04/19/20 - Left below knee amputation. Wound care - Collagen hydrogel covered with adaptic the the center of the left stump incision where there is separation. Operative culture - Streptococcus agalactiae, Staphylococcus simulans, Methicillin resistant, and Corynebacterium striatum. Preop culture showed E. coli, Proteus penneri, MRSA, Streptococcus agalactiae, and Corynebacterium striatum. He was treated with Vancomycin and Zosyn and then Cefdinir and Zyvox and has finished them. Pathology - acute osteomyelitis. Prealbumin from 04/20/20 was 9.0. Encourage nutritional supplementation with protein to help the healing process. HgbA1c from 04/21/20 was 8.1. Today he denies fever. His appetite is ok. Progress of Wound: Improved. - Physical Exam Vital Signs Temp Pulse Resp BP 98.5 F 76 22 H 141/79 H 07/01/20 11:16 07/01/20 11:16 07/01/20 11:16 07/01/20 11:16 General: Alert, Oriented x3, Cooperative HEENT: Atraumatic Oral: Moist Mucosa Lungs: Normal air movement Cardiovascular: Regular rate Abdomen: Obese Extremities: Capillary Refill Less than 3 Seconds Skin: Ulcer/ Wound - Left BKA stump has small ulcer in the center of the healed incision, ulcer is pink and smaller than it was on a previous visit. Wound Measurements and Assessment - Nurse 1 - General Ulcer Measurement Start: 06/10/20 14:06 Freq: Status: Active Protocol: Activity Type Activity Date Activity User E-Sign Co-Sign Detail Recorded Client Recorded Date Recorded By Document 07/01/20 11:16 DL [id number] 07/01/20 11:25 DL 07/01/20 11:16 Wound Center Nurse 1 [Ulcer Assessment] #1- L STUMP POST OP cluster -Current Size (cm) - Length 0.2 -Current Size (cm) - Width 0.2 -Current Size (cm) - Depth 0.1 -Total Square Cm 0.04 -Photo Taken No -Exudate Amt None Present -Wound Margin Flat & Intact -Granulation Amt Large (67-100%) -Granulation Quality [place] -Necrosis Amt Small (1-33%) -Necrotic Tissue Type Adherent Slough -Texture (Jolly-wound Skin Appearance) Scarring -Moisture (Jolly-wound Skin Appearance No Abnormality ) -Color (Jolly-wound Skin Appearance) No Abnormality -Temperature (Jolly-wound Skin No Abnormality Appearance) (Pt Warm) -Tenderness on Palpation (Jolly-wound No Skin Appearance) -Ulcer Cleansing Rinsed/ Irrigated with Saline -Foul Odor after Cleansing No -Anesthetic Used 4% Lidocaine Solution - Nurse 2 - General Ulcer CM Notes Start: 07/01/20 11:35 Freq: Status: Active Protocol: Activity Type Activity Date Activity User E-Sign Co-Sign Detail Recorded Client Recorded Date Recorded By Document 07/01/20 11:35 AWAIS [id number] 07/01/20 11:36 AWAIS 07/01/20 11:35 Wound Center Nurse 2 [Procedure/Treatment] -Time 11:35 -Correct Patient Yes -Correct Side, Site, Position Yes -Correct Procedure Yes -Procedure Performed Yes -Type of Procedure Debridement -Clinical Debridement Subcutaneous -Tissue Removed Subcutaneous -Post Debridement (cm) - Length 0.3 -Post Debridement (cm) - Width 0.6 -Post Debridement (cm) - Depth 0.2 -Total Square (Post) (cm) 0.18 -Area of Debridement (cm) - Length 0.3 -Area of Debridement (cm) - Width 0.6 -Total Square (Area) (cm) 0.18 -Tunneling No -Undermining/Tunneling No -Circular Undermining No -Wound/Ulcer Outcome Not Healed -Ulcer Cleansing Rinsed/ Irrigated with Saline -Foul Odor after Cleansing No -Bioengineered Tissue No -Bleeding Controlled with Pressure -Offloading No -Treatment Response Procedure Tolerated Well -Debridement - Subq, 1st 20sq cm Yes [See Physician Procedure note for Specifics] Pain Scale: 0-10 Numeric [Pain] -Is Patient Pain Free? Yes - Nurse 3 - General Ulcer D/C NN Start: 07/01/20 11:48 Freq: Status: Active Protocol: Activity Type Activity Date Activity User E-Sign Co-Sign Detail Recorded Client Recorded Date Recorded By Document 07/01/20 11:49 [facility] [id number] 07/01/20 11:49 [facility] 07/01/20 11:49 Wound Care Nurse 3 [Wound Dressing] #1- L STUMP POST OP cluster -Ulcer Cleansing Rinsed/ Irrigated with Saline -Foul Odor after Cleansing No -Primary Dressing Applied C Hydrogel ($), NonAdherent Contact Layer -Primary Dressing Covered/Secured Dry Gauze, with Secured with Tape [Compression Applied] Left -Other pts own stump coil repair technician [Post Procedure Tolerated] -Treatment Response Procedure Tolerated Well Pain Scale: 0-10 Numeric [Pain] -Is Patient Pain Free? Yes - Visit Discharge [Visit Discharge Information] -Discharge Condition Stable -Ambulatory Status Wheelchair [Facility Notification] -Facility Type [facility] Musculoskeletal: No Tenderness to Palpation of Joints or Extremities Neurological: Cranial nerves II-XII grossly intact Psych/Mental Status: Normal Affect, - - Patient is frustrated because he wants to have time while he is at the rehab facility to learn to walk on his prosthetic leg and he is not able to do that due to the fact that he continues to have a small ucleration in the center of it incision line. Debridement Note Post-Debridement Measurements/Treatment ISMAEL - Nurse 2 - General Ulcer CM Notes Start: 07/01/20 11:35 Freq: Status: Active Protocol: Activity Type Activity Date Activity User E-Sign Co-Sign Detail Recorded Client Recorded Date Recorded By Document 07/01/20 11:35 [id number] 07/01/20 11:36 07/01/20 11:35 Wound Center Nurse 2 #1- L STUMP POST OP cluster -Time 11:35 -Correct Patient Yes -Correct Side, Site, Position Yes -Correct Procedure Yes -Procedure Performed Yes -Type of Procedure Debridement -Clinical Debridement Subcutaneous -Tissue Removed Subcutaneous -Post Debridement (cm) - Length 0.3 -Post Debridement (cm) - Width 0.6 -Post Debridement (cm) - Depth 0.2 -Total Square (Post) (cm) 0.18 -Area of Debridement (cm) - Length 0.3 -Area of Debridement (cm) - Width 0.6 -Total Square (Area) (cm) 0.18 -Tunneling No -Undermining/Tunneling No -Circular Undermining No -Wound/Ulcer Outcome Not Healed -Ulcer Cleansing Rinsed/ Irrigated with Saline -Foul Odor after Cleansing No -Bioengineered Tissue No -Bleeding Controlled with Pressure -Offloading No -Treatment Response Procedure Tolerated Well -Debridement - Subq, 1st 20sq cm Yes Pain Scale: 0-10 Numeric Is Patient Pain Free? Yes - Nurse 3 - General Ulcer D/C NN Start: 07/01/20 11:48 Freq: Status: Active Protocol: Activity Type Activity Date Activity User E-Sign Co-Sign Detail Recorded Client Recorded Date Recorded By Document 07/01/20 11:49 [facility] [id number] 07/01/20 11:49 [facility] 07/01/20 11:49 Wound Care Nurse 3 #1- L STUMP POST OP cluster -Ulcer Cleansing Rinsed/ Irrigated with Saline -Foul Odor after Cleansing No -Primary Dressing Applied C Hydrogel ($), NonAdherent Contact Layer -Primary Dressing Covered/Secured with Dry Gauze, Secured with Tape Left -Other pts own stump coil repair technician Treatment Response Procedure Tolerated Well Pain Scale: 0-10 Numeric Is Patient Pain Free? Yes - Visit Discharge Discharge Condition Stable Ambulatory Status Wheelchair Facility Type [facility] Wound debrided: BKA stump incision ulcer Laterality: Left Type of Debridement: Excisional debridement Anesthesia Used: 5% Lidocaine Gel Depth: Down to and including healthy tissue, in the subcutaneous layer Percentage of wound debrided: 100 Instrument Used: - - 1mm curette Tissue Removed: Subcutaneous tissue and slough Severity: Limited To Skin Breakdown Amount of bleeding with debridement: Mild Bleeding Controlled with: Pressure Patient tolerated procedure well Assessment/Plan Assessment: 1. Nonhealing infected diabetic ulcers left foot. 2. MRSA. 3. Diabetes mellitus. 4. Obesity. 5. s/p left BKA. Plan: His left BKA stump incision is dry and intact. Swelling resolving. He is doing well with a stump coil repair technician. Small amount of separation in the center of the incision. Wound care - Collagen hydrogel covered with adaptic the the center of the left stump incision where there is separation. He is using a stump coil repair technician for compression. He states he is waiting for a fitting for his stump from [employer]. He is very frustrated about not having his prosthesis fit so he can have PT with it while still being at the [facility]. Operative culture showed Streptococcus agalactiae, Staphylococcus simulans, Methicillin resistant, and Corynebacterium striatum. Preop culture showed E. coli, Proteus penneri, MRSA, Streptococcus agalactiae, and Corynebacterium striatum. He was treated with Vancomycin and Zosyn and then Cefdinir and Zyvox and has finished them. Prealbumin from 04/20/20 was 9.0. Encourage nutritional supplementation with protein to help the healing process. HgbA1c from 04/21/20 was 8.1. Followup two weeks. 111xxx-113xx: [id number] Global Visit
== END 2020-07-01 23:59 ==
LOC: WC 11:00
PROVIDERS: PCP Internal Medicine; Visit Provider Nurse Practitioner Family
DX: T87.81 Dehiscence of amputation stump (principal); Y83.8 Other surgical procedures as the cause of abnormal reaction of the patient, or of later complication, without mention of misadventure at the time of the procedure; T87.89 Other complications of amputation stump; E66.01 Morbid (severe) obesity due to excess calories; I51.9 Heart disease, unspecified; Z86.14 Personal history of Methicillin resistant Staphylococcus aureus infection; E11.42 Type 2 diabetes mellitus with diabetic polyneuropathy
CPT/HCPCS: 11042

== ENCOUNTER 2020-07-15 09:52 | Outpatient (RCR) | payer MEDICARE, OTHER, SELFPAY ==
[2020-07-02 00:37] VITALS: BMI 55.9
[2020-07-02 00:49] VITALS: BP 141/79; PULSE 76; RESP 22; TEMP 36.9
[2020-07-15 10:03] VITALS: BP 148/62; PULSE 75; RESP 20; TEMP 36.4; BMI 55.9
--- NOTE | 2020-07-15 13:14 | PCM.WC.PN ---
Type of Wound Date of Service: 07/15/20 Chief Complaint: Nonhealing infected diabetic ulcers left foot s/p left BKA. History of Wound: Surgery 04/19/20 - Left below knee amputation. Wound care - Collagen hydrogel covered with adaptic in the center of the left stump incision where there is separation. Operative culture - Streptococcus agalactiae, Staphylococcus simulans, Methicillin resistant, and Corynebacterium striatum. Preop culture showed E. coli, Proteus penneri, MRSA, Streptococcus agalactiae, and Corynebacterium striatum. He was treated with Vancomycin and Zosyn and then Cefdinir and Zyvox and has finished them. Pathology - acute osteomyelitis. Prealbumin from 04/20/20 was 9.0. Encourage nutritional supplementation with protein to help the healing process. HgbA1c from 04/21/20 was 8.1. Today he denies fever. His appetite is ok. Progress of Wound: Healed. - Physical Exam Vital Signs Temp Pulse Resp BP 97.5 F L 75 20 H 148/62 H 07/15/20 10:03 07/15/20 10:03 07/15/20 10:03 07/15/20 10:03 General: Alert, Oriented x3 HEENT: PERRLA, EOMI Oral: Moist Mucosa Neck: Supple Lungs: Clear to auscultation Cardiovascular: Regular rate, Regular Rhythm Abdomen: Soft, Non-Distended Skin: Ulcer/ Wound - left BKA stump ulcer has healed. Mild swelling in the stump. Wound Measurements and Assessment WC - Nurse 1 - General Ulcer Measurement Start: 07/15/20 10:02 Freq: Status: Discharge Protocol: Activity Type Activity Date Activity User E-Sign Co-Sign Detail Recorded Client Recorded Date Recorded By Document 07/15/20 10:03 DL [id number] 07/15/20 10:10 DL Edit Status 07/15/20 10:41 ANT DAAAYUSH Active=>Discharge [id number] 07/15/20 10:41 ANT DAEMON 07/15/20 10:03 Wound Center Nurse 1 [Ulcer Assessment] #1- L STUMP POST OP cluster -Current Size (cm) - Length 0 -Current Size (cm) - Width 0 -Current Size (cm) - Depth 0 -Total Square Cm 0 -Photo Taken Yes -Exudate Amt None Present -Wound Margin Flat & Intact -Granulation Amt Large (67-100%) -Granulation Quality [place] -Necrosis Amt None Present (0 %) -Structure Exposed N/A -Texture (Jolly-wound Skin Appearance) Scarring -Color (Jolly-wound Skin Appearance) No Abnormality -Temperature (Jolly-wound Skin No Abnormality Appearance) (Pt Warm) -Tenderness on Palpation (Jolly-wound No Skin Appearance) -Ulcer Cleansing Wound Cleanser WC - Nurse 2 - General Ulcer CM Notes Start: 07/15/20 10:02 Freq: Status: Discharge Protocol: Activity Type Activity Date Activity User E-Sign Co-Sign Detail Recorded Client Recorded Date Recorded By Document 07/15/20 10:27 AWAIS [id number] 07/15/20 10:28 AWAIS Edit Status 07/15/20 10:41 BKNicholas DAEMON Active=>Discharge [facility]-BG11 07/15/20 10:41 LYDIAG DAEMON 07/15/20 10:27 Wound Center Nurse 2 [Procedure/Treatment] -Correct Patient No -Correct Side, Site, Position No -Correct Procedure No -Procedure Performed No -Post Debridement (cm) - Length 0 -Post Debridement (cm) - Width 0 -Post Debridement (cm) - Depth 0 -Total Square (Post) (cm) 0 -Area of Debridement (cm) - Length 0 -Area of Debridement (cm) - Width 0 -Total Square (Area) (cm) 0 -Wound/Ulcer Outcome Healed- Epithelialized [See Physician Procedure note for Specifics] Pain Scale: 0-10 Numeric [Pain] -Is Patient Pain Free? Yes - Nurse 3 - General Ulcer D/C NN Start: 07/15/20 10:02 Freq: Status: Discharge Protocol: Activity Type Activity Date Activity User E-Sign Co-Sign Detail Recorded Client Recorded Date Recorded By Edit Status 07/15/20 10:41 BKG DAEMON Active=>Discharge [facility]-BG11 07/15/20 10:41 BKG DAEMON Neurological: Cranial nerves II-XII grossly intact Psych/Mental Status: Normal Affect, Appropriate Debridement Note Post-Debridement Measurements/Treatment WC - Nurse 2 - General Ulcer CM Notes Start: 07/15/20 10:02 Freq: Status: Discharge Protocol: Activity Type Activity Date Activity User E-Sign Co-Sign Detail Recorded Client Recorded Date Recorded By Document 07/15/20 10:27 AWAIS [id number] 07/15/20 10:28 JF 07/15/20 10:27 Wound Center Nurse 2 #1- L STUMP POST OP cluster -Correct Patient No -Correct Side, Site, Position No -Correct Procedure No -Procedure Performed No -Post Debridement (cm) - Length 0 -Post Debridement (cm) - Width 0 -Post Debridement (cm) - Depth 0 -Total Square (Post) (cm) 0 -Area of Debridement (cm) - Length 0 -Area of Debridement (cm) - Width 0 -Total Square (Area) (cm) 0 -Wound/Ulcer Outcome Healed- Epithelialized Pain Scale: 0-10 Numeric Is Patient Pain Free? Yes Wound debrided: #1 Left BKA stump. Laterality: Left Wound Grade/Stage: 4. No debridement was completed today - the ulcer has healed. Assessment/Plan Assessment: 1. Ulcer left BKA stump, healed. 2. MRSA. 3. Diabetes mellitus. 4. Obesity. 5. s/p left BKA. Plan: His left BKA stump ulcer is healed. Swelling resolving. He is doing well with a stump folder machine operator. He will continue using a stump folder machine operator for compression. He is waiting for a fitting for his stump from [employer]. Once he has his prosthesis, he can proceed with PT at the [facility] in preparation for discharge. Prealbumin from 04/20/20 was 9.0. Encourage nutritional supplementation with protein to help the healing process. HgbA1c from 04/21/20 was 8.1. Followup on an as needed basis. [id number]: [id number] Global Visit - ICD-10 - Z48.89, T87.89, E11.69, A49.02, E11.40, E66.01, E11.9, Z89.512, L97.523
== END 2020-07-15 10:41 | disposition home or self-care (01) ==
LOC: WC 09:52
PROVIDERS: PCP Internal Medicine; Visit Provider Nurse Practitioner Family
CPT/HCPCS: 99212; G0463

== ENCOUNTER 2020-11-02 15:34 | Emergency (ER) | payer MEDICARE, OTHER, MEDICAID, SELFPAY ==
[2020-11-02 15:35] VITALS: BP 113/92; PULSE 76; RESP 16; TEMP 36.7; O2SAT 96; BMI 59.3
--- NOTE | 2020-11-02 16:15 | ED.VIS.GEN ---
History of Present Illness Chief Complaint: Laceration Informant: Patient Narrative: 64-year-old male with history of a of diabetes and diabetic neuropathy presents with a right heel laceration. He states that he noticed the cut about 2 hours prior to examination. He informs me that he does not know how he cut it. Unknown last tetanus. He is a patient at the wound center. - Past Medical History (1) Alcoholism in recovery Status: Chronic (2) Below knee amputation Status: Chronic Comment: left (3) CAD (coronary artery disease) Status: Chronic (4) COPD (chronic obstructive pulmonary disease) Status: Chronic (5) Chronic renal failure, stage 3 (moderate) Status: Chronic (6) Diabetes mellitus Status: Chronic (7) Diabetic neuropathy Status: Chronic Comment: he has numbness in the feet and the tips of the fingers (8) HTN (hypertension) Status: Chronic Comment: Had hyperkalemia on Lisinopril 20mg BID.......will try a lower dose when the potassium is WNL (9) Hyperlipidemia Status: Chronic Comment: No recent labs available at time of visit. He reports he is not willing to use a statin. Will obtain labs from [facility] provider. No medical records available at time of visit. 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 Alcohol: Sober Drugs: None - Family History Paternal Family History: Family History (Last Reviewed 06/12/20 @ 07:56 by Nidhi Carrington) Mother Arthritis Diabetes Hypertension High cholesterol Osteoporosis Sister Breast cancer Cancer High cholesterol Brother Lung cancer High cholesterol Father Hypertension High cholesterol Family History: Reports: Heart Disease, Hypertension Maternal Family History: Family History (Last Reviewed 06/12/20 @ 07:56 by Nidhi Carrington) Mother Arthritis Diabetes Hypertension High cholesterol Osteoporosis Sister Breast cancer Cancer High cholesterol Brother Lung cancer High cholesterol Father Hypertension High cholesterol Family History: Reports: Diabetes Sibling Family History: Family History (Last Reviewed 06/12/20 @ 07:56 by Nidhi Carrington) Mother Arthritis Diabetes Hypertension High cholesterol Osteoporosis Sister Breast cancer Cancer High cholesterol Brother Lung cancer High cholesterol Father Hypertension High cholesterol Family History: Reports: Cancer - sister with breast, brother of lung cancer Review of Systems General: Denies: Chills, Fever, Sweats Eyes: Denies: Visual changes - bilaterally, Diplopia ENT: Denies: Rhinorrhea, Sore throat Cardiovascular: Denies: Chest pain, Palpitations Respiratory: Denies: Dyspnea, Cough, Dyspnea on exertion Gastrointestinal: Denies: Abdominal pain, Nausea, Vomiting, Diarrhea, Melena, Hematochezia Genitourinary: Denies: Dysuria, Hematuria, Frequency Musculoskeletal: Denies: Back pain, Extremity Pain Skin: Reports: Wounds. Denies: Rash Neurological: Denies: Headache, Weakness, Numbness Physical Exam Vital Signs/Narrative: Vital Signs Temp Pulse Resp BP Pulse Ox 11/02/20 15:35 98.0 F 76 16 113/92 H 96 Inital Vital Signs reviewed: Yes General: Well nourished, Well developed, Obese, No Acute Distress Head: Normocephalic, Atraumatic Eyes: Perrl, EOMI ENT: Moist mucous membranes, No rhinorrhea Neck: Supple, Nontender Cardiovascular: Regular rate, Regular rhythm, No murmurs Respiratory: No distress, CTA bilaterally, Chest nontender Abdomen: Soft, Nontender, Nondistended, Normal bowel sounds Back: Nontender, Normal Inspection Extremities: Nontender, No edema Skin: Normal color, No rash, Trauma - There is a 6 cm curvilinear laceration over the lateral aspect of the right heel. No active bleeding. Neurological: Alert, Oriented x3, Cranial nerves II-XII grossly intact, Normal Strength, Normal Sensation Psychological: Normal affect, Normal Mood Diagnostic/Tx/Re-eval - Medical Decision Making Adacel was ordered to update his tetanus. Wound was locally Association 1% lidocaine washed with Shur-Clens and explored. Was closed using a total of 9 simple erupted 4-0 Ethilon sutures. Wound care discussed with patient. He was advised that due to his diabetes and his neuropathy that he is at high risk for complications such as infection. On placing him on Keflex. He is a patient at the wound clinic and we will have him follow-up there in 7 to 10 days for wound check and suture removal. In the interim return if worsening or concerns. Patient notes understanding of the plan. ED Disposition - Plan for ED Patient: Disposition: Home or Assisted Living Diagnosis: Laceration of right foot Instructions: ED Laceration, Foot: All Closures Prescriptions: Cephalexin [Keflex] 500 mg PO Q6 #40 cap Prescription Printed Referrals: Clinic,Wound [None] - (in 7-10 days for wound check and suture removal)
[2020-11-02] MEDS: Lidocaine 1% (20 ml mdv) 20 ML Vial INFILT (16:36)
[2020-11-02] MEDS: Diphth,Pertuss(Acell),Tet Vac 0.5 ML Vial IM (16:37)
[2020-11-02 17:24] VITALS: BP 155/88; PULSE 93; RESP 18; O2SAT 94
== END 2020-11-02 17:54 | disposition home or self-care (01) ==
PROVIDERS: Emergency Provider Emergency Medicine; PCP Internal Medicine
DX: S91.311A Laceration without foreign body, right foot, initial encounter (principal); X58.XXXA Exposure to other specified factors, initial encounter; Y93.9 Activity, unspecified; Y92.9 Unspecified place or not applicable; Y99.9 Unspecified external cause status; E11.40 Type 2 diabetes mellitus with diabetic neuropathy, unspecified; I25.10 Atherosclerotic heart disease of native coronary artery without angina pectoris; J44.9 Chronic obstructive pulmonary disease, unspecified; I12.9 Hypertensive chronic kidney disease with stage 1 through stage 4 chronic kidney disease, or unspecified chronic kidney disease; E11.22 Type 2 diabetes mellitus with diabetic chronic kidney disease; N18.30 Chronic kidney disease, stage 3 unspecified; E78.5 Hyperlipidemia, unspecified; E03.9 Hypothyroidism, unspecified; R53.81 Other malaise; I27.20 Pulmonary hypertension, unspecified; E66.9 Obesity, unspecified; Z68.43 Body mass index [BMI] 50.0-59.9, adult; Z89.512 Acquired absence of left leg below knee; Z91.19 Patient's noncompliance with other medical treatment and regimen; Z79.4 Long term (current) use of insulin; Z79.899 Other long term (current) drug therapy
CPT/HCPCS: 12002; 90471; 90715; 99285

== ENCOUNTER 2021-04-28 02:37 | Emergency (ER) | payer MEDICARE, MEDICAID, SELFPAY ==
[2021-04-28 02:38] VITALS: BP 204/83; PULSE 91; RESP 18; TEMP 37.6; O2SAT 94; BMI 58.3
[2021-04-28] MEDS: oxyCODONE 5 MG Tablet PO (03:08)
--- NOTE | 2021-04-28 03:10 | ED.VIS.LOWEX ---
HPI History of Present Illness Chief Complaint: Lower Extremity Injury Informant: patient Occured/Mechanism Mechanism/Context: Yes injury Onset/Context/Timing Onset: Days (Injury occurred Wednesday, April 21) Context: Gradual Onset Timing: Continuous Quality of Pain: Dull and Aching Location: Medial aspect of the left knee Current Severity: Mild Maximum Severity: Severe Worsened by: Certain movements and palpation Associated Symptoms Associated Symptoms: Negative for Parasthesia, Weakness and Loss of Funtion Narrative Narrative: Patient is a 65-year-old male status post below the knee amputation due to infection. He states he placed his knee on the bed to get on the commode. He is not sure what he did. He did not fall onto the knee. He apparently twisted it. He states the pain has been significant since April 23. He states if he keeps his knee in extension he has no pain. He denies history of gout or pseudogout. He denies fever, chills night sweats. Tetanus Immunization: 5-10 years Prior similar symptoms: No Recent Illness/Hospitalization: No PFSH PFS Medical History (Updated 04/28/21 @ 03:[address] Waqar Cherry MD) Alcohol abuse Anxiety and depression Arthritis COPD (chronic obstructive pulmonary disease) Diabetes type 2, uncontrolled Drug abuse GERD (gastroesophageal reflux disease) GI problem H/O transfusion of whole blood Hearing problem High cholesterol High triglycerides HTN (hypertension) CECILE (obstructive sleep apnea) Pneumonia prostate problems Recurrent infections Thyroid disorder Vision problems Vitamin deficiency Home Medications ropinirole 0.25 mg PO BID 08/17/16 [History Last Taken 03/20/20] fluticasone propionate 50 mcg/actuation nasal spray,suspension 2 spray INTRANASAL DAILY PRN PRN 02/14/18 [History Last Taken Unknown] bupropion HCl 150 mg PO BID 03/21/20 [History Last Taken 03/21/20] duloxetine 60 mg PO DAILY 03/21/20 [History Last Taken 03/21/20] omeprazole 40 mg PO BID 03/21/20 [History Last Taken 03/20/20] levothyroxine 225 mcg PO DAILY@0600 04/21/20 [History Last Taken Unknown] multivitamin with folic acid 1 tab PO DAILYCM tab 05/07/20 [Rx Last Taken Unknown] tolterodine 2 mg PO DAILY #1 cap.er.24h 05/07/20 [Rx Last Taken Unknown] cephalexin 500 mg PO Q6 #40 cap 11/02/20 [Rx Last Taken Unknown] insulin detemir U-100 150 unit SQ BID 11/02/20 [History Last Taken Unknown] insulin regular hum U-500 conc 60 units SC 11/02/20 [History Last Taken Unknown] oxycodone-acetaminophen 1 tab PO Q6H PRN PRN 5 Days #20 tablet 04/28/21 [Rx Last Taken Unknown] Allergy/AdvReac Type Severity Reaction Status Date / Time No Known Allergies Allergy Verified 11/02/20 15:40 Family History Mother Arthritis Diabetes Hypertension High cholesterol Osteoporosis Sister Breast cancer Cancer High cholesterol Brother Lung cancer High cholesterol Father Hypertension High cholesterol Surgical History Partial nontraumatic amputation of left foot Social History (Updated 04/28/21 @ 03:[address] Waqar Cherry MD) household members: none housing: apartment Smoking Status: Unknown if ever smoked alcohol intake: former substance use type: does not use ROS ROS ED Constitutional Constitutional ED: Denies chills, fever(s), subjective or sweats Eyes Eyes: Denies blurry vision or change in vision Cardiovascular Cardiovascular: Denies chest pain Respiratory/Chest Respiratory/Chest: Denies dyspnea Genitourinary Genitourinary ED: Denies dysuria, hematuria or urinary frequency Musculoskeletal Musculoskeletal: Denies arthralgias, back pain, myalgias or neck pain Integumentary Denies Abrasions or rash Neurologic Neurologic: Denies paresthesias or weakness Endocrine Endocrinology: Denies polydipsia, polyphagia or polyuria EXAM Physical Exam Const Vital Signs: 04/28/21 02:38 Temperature 99.7 F H Temperature Source Oral Pulse Rate 91 Respiratory Rate 18 Blood Pressure 204/83 H Blood Pressure Mean 123 Pulse Ox 94 Oxygen Delivery Method Room Air Positive well nourished, well developed and obese General Appearance ED: well developed and NAD Nutritional Appearance: obese HEENT normocephalic and atraumatic Eyes PERRL General Eye ED: Yes other Other Details: Extraocular muscles are intact. Sclerae anicteric. Conjunctive is pink. Neck full ROM and supple Resp normal respiratory effort and clear to auscultation bilaterally Cardio regular rate, regular rhythm, S1 normal heart sound, S2 normal heart sound and no murmurs Extremity full ROM; Negative for normal to inspection Extremity Narrative: Left knee is swollen compared to the right. The patella is not ballotable. There is a small effusion. There is lateral joint line tenderness. There may be tenderness over the fibular head. Varus valgus stress testing causes discomfort laterally. No obvious laxity. Unable to perform modified Shantanu's test. General Extremety ED: Yes weight-bearing difficulty; Negative for cyanosis or edema General Extremity: weight-bearing difficulty; Negative for cyanosis or edema Neuro oriented x3, CN's II-XII intact bilaterally and moves all extremities Sensorium / Orientation: alert Psych mental status grossly normal Skin Skin Narrative: Abrasions noted stump. There is no evidence of infection. Trauma: abrasion MDM MDM MDM Narrative Medical decision making narrative: Will obtain x-ray to evaluate for fracture versus meniscus injury versus ligamentous injury. If there is no fracture suspect patient has lateral collateral ligament strain with possible lateral meniscus tear. Since the x-ray reveals no acute abnormality and he has significant pain along the lateral joint line suspect he may have a meniscus injury. We will have him follow-up with orthopedic surgeon. Radiography X-Ray: - (4 view x-ray of the left knee was obtained interpreted by me as negative. There is no fracture, subluxation or dislocation noted. There is no effusion. There is no degenerative changes noted. There is evidence that patient had a BKA. There is no foreign body noted.) Diagnostic Testing: Radiology Impression Knee X-Ray 04/28/21 03:24 IMPRESSION: No acute abnormalities of the knee. The patient has a below the knee amputation. at 0344 Reported and signed by: Rahul Kendall MD Electronically Signed: Rahul Kendall MD at 3:43 EDT Tel , Service support , Discharge Plan Triage Chief Complaint: Lower Extremity Injury ED Provider: Waqar Cherry Dx/Rx/DC Orders Clinical Impression: Acute lateral meniscal injury of left knee Instructions: ED Meniscal Injury Knee Poss Prescriptions: New oxycodone-acetaminophen [oxycodone-acetaminophen] 1 TABLET tablet 1 tab PO Q6H PRN PRN (Reason: pain) 5 Days Qty: 20 RF: 0 No Action fluticasone propionate [Flonase Allergy Relief] 50 mcg/actuation spray,suspension 2 spray INTRANASAL DAILY PRN PRN (Reason: Sinus Congestion) RF: 0 ropinirole 0.25 MG tablet 0.25 mg PO BID RF: 0 omeprazole 40 MG capsule,delayed release(DR/EC) 40 mg PO BID RF: 0 duloxetine 60 MG capsule,delayed release(DR/EC) 60 mg PO DAILY RF: 0 bupropion HCl 150 MG tablet sustained-release 12 hr 150 mg PO BID RF: 0 levothyroxine 75 MCG tablet 225 mcg PO DAILY@0600 RF: 0 multivitamin with folic acid 1 TABLET tablet 1 tab PO DAILYCM RF: 0 tolterodine 2 MG capsule,extended release 24hr 2 mg PO DAILY Qty: 1 RF: 0 insulin detemir U-100 100 UNIT/ML solution 150 unit SQ BID RF: 0 insulin regular hum U-500 conc 500 UNITS/ML insulin pen 60 units SC RF: 0 cephalexin 500 MG capsule 500 mg PO Q6 Qty: 40 RF: 0 Primary Care Provider: Maico Jones Referrals: Maico Jones MD [Primary Care Provider] - Disposition Disposition: Home, Self Care
--- NOTE | 2021-04-28 03:24 | RAD_ITS ---
EXAM: XR LEFT KNEE COMPLETE, 4 OR MORE VIEWS : 1955 CLINICAL INDICATION: Injury/Pain TECHNIQUE: Four or more views of the left knee. This report was created using [employer] report generation technology. COMPARISON: None. FINDINGS: BONES/JOINTS: Patient has a below the knee amputation. No acute fracture. No subluxation. Normal alignment. Preservation of the joint space. No sclerotic or destructive changes observed. SOFT TISSUES: Unremarkable. No soft tissue swelling or gas. No radiopaque foreign body. RAD/Knee 4 or More Views IMPRESSION: No acute abnormalities of the knee. The patient has a below the knee amputation. at 0344 Reported and signed by: Rahul Kendall MD Electronically Signed: Rahul Kendall MD at 3:43 EDT Tel , Service support ,
[2021-04-28 05:04] VITALS: BP 165/85; PULSE 88; RESP 16; O2SAT 98
== END 2021-04-28 05:04 | disposition home or self-care (01) ==
PROVIDERS: Emergency Provider Emergency Medicine; PCP Internal Medicine
DX: S83.282A Other tear of lateral meniscus, current injury, left knee, initial encounter (principal); E66.9 Obesity, unspecified; X50.1XXA Overexertion from prolonged static or awkward postures, initial encounter
CPT/HCPCS: 73564; 99284

== ENCOUNTER 2022-06-09 05:29 | Inpatient (IN) | payer MEDICARE, MEDICAID, SELFPAY ==
[2022-06-09] VITALS (14 sets, daily range): BP systolic 154–182; BP diastolic 78–105; PULSE 70–96; RESP 16–24; TEMP 35.8–37.3; O2SAT 95–98; BMI 56.1; BMI 55.6
--- NOTE | 2022-06-09 05:36 | CT_ITS ---
EXAM: CT Head Stroke Protocol W/O Contrast Injection HISTORY: Neuro deficit, acute, stroke suspected TECHNIQUE: Routine protocol CT Head. IV Contrast: None. RADIATION DOSAGE (If Supplied By Facility): CTDIvol = ( ) mGy, DLP = ( ) mGycm Individualized dose optimization techniques were used for this CT. COMPARISON: None. LIMITATIONS: None. FINDINGS: BRAIN: No acute bleed. No edema. Mild decreased attenuation in the periventricular white matter bilaterally. Old lacunar infarcts versus prominent perivascular space in bilateral basal ganglia. Mack-white matter differentiation is maintained. Arterial calcifications. VENTRICLES AND SULCI: The ventricles are not dilated. The sulci are prominent. EXTRA-AXIAL: No hemorrhage, fluid collection, or mass. CALVARIUM / SKULL BASE: Unremarkable. FACE/SINUSES: The mastoid air cells on the left are partially opacified. Parotid glands are relatively prominent size, symmetric bilaterally, likely related to patient body habitus. SOFT TISSUES: Unremarkable. CT/STROKE Brain/Head without Cont IMPRESSION: No acute intracranial abnormality. CT angiogram and/or MRI may be helpful to evaluate for acute infarct as clinically indicated. Chronic microvascular ischemic disease. Left mastoid disease. N.B. : The above Results were Read Back by Lauren Yang MD to Waqar Cherry MD, and understanding confirmed on 06/09/2022 06:55:17 (ET). Electronically Signed: Lauren Yang MD at 6:59 EDT ,
--- NOTE | 2022-06-09 05:36 | EKG12_ITS ---
Test Reason : SOB Blood Pressure : / mmHG Vent. Rate : 086 BPM Atrial Rate : 086 BPM P-R Int : 216 ms QRS Dur : 108 ms QT Int : 394 ms P-R-T Axes : 043 055 057 degrees QTc Int : 471 ms Sinus rhythm with 1st degree A-V block Otherwise normal ECG Confirmed by NAVID DACOSTA, RENE ([id number]), desk editor ALYSSA DE ANDA ([id number]) on 06/12/2022 1:55:29 PM Referred By: Confirmed By:RENE SHOEMAKER MD
--- NOTE | 2022-06-09 05:36 | RAD_ITS ---
STUDY: X-RAY CHEST REASON FOR EXAM: Male, 66 years old. Neuro deficit, acute, stroke suspected TECHNIQUE: AP portable. 6:31 AM. COMPARISON: 04/17/2020. FINDINGS: LUNGS: Opacities in both lung bases probable infiltrates appears increased compared to prior studies despite similar positioning. Limited by body habitus and overlying soft tissues. No pneumothorax. MEDIASTINUM: Unremarkable. CARDIAC SILHOUETTE: Appears enlarged, stable size and configuration. Possibly exaggerated by the positioning. BONES AND SOFT TISSUES: No acute abnormalities. RAD/Chest 1 View IMPRESSION: Suspect bilateral basilar infiltrates and possible pneumonia. Stable cardiomegaly. Electronically Signed: Lauren Yang MD at 7:03 EDT ,
--- NOTE | 2022-06-09 05:38 | EDS_ITS ---
HPI History of Present Illness Chief Complaint: Shortness of Breath Detail of Chief Complaint: Chief complaint was shortness of breath. Upon further questioning patient Informant: patient and EMS Onset/Context/Timing Onset: Yesterday (Patient reports difficulty using his left arm and loss of sensation that started yesterday) Context: Sudden Onset Timing: Intermittent (Duration unknown) Quality and Location: Positive for Left Facial Droop, Left Arm Parasthesia, Left Arm Weakness and Slurred Speech Onset: WednesdayJune 08 at 1600 Current Severity: Mild Maximum Severity: Moderate Worsened by: Nothing Relieved by: Not applicable Associated Symptoms Associated Symptoms: Positive for Headache and - (Shortness of breath that got worse yesterday at 1700); Negative for Nausea, Vomiting or Chest Pain Narrative Narrative: Patient is a 66-year-old male who lives alone and has multiple medical problems. He was unaware that he had a facial droop. When informed he had a facial droop he informed us that he was unable to use his left upper extremity and had no sensation. He believes onset was June 08 at 1600. Patient presents because of shortness of breath. Report was because of shortness of breath. Shortness of breath started several days ago got worse yesterday at approximately 1700. He denies orthopnea, PND or congestive heart failure. He denies fever, chills or night sweats. He denies upper respiratory infectious symptoms. He denies chest discomfort. He denies GI symptoms. He denies symptoms. Prior similar symptoms: No Recent Illness/Hospitalization: No PFSH PFS Medical History (Updated 06/09/22 @ 07:[address] Waqar Cherry MD) Alcohol abuse Anxiety Anxiety and depression Arthritis BiPAP (biphasic positive airway pressure) dependence COPD (chronic obstructive pulmonary disease) Depression Diabetes type 2, uncontrolled Drug abuse Former smoker GERD (gastroesophageal reflux disease) GI problem H/O transfusion of whole blood Hearing problem High cholesterol High triglycerides HTN (hypertension) Kidney disease CECILE (obstructive sleep apnea) Osteoporosis Pneumonia prostate problems Recurrent infections Sleep apnea Thyroid disorder Vision problems Vitamin deficiency Home Medications ropinirole 0.25 mg tablet 0.25 mg PO BID restless leg syndrome 08/17/16 [History Last Taken 03/20/20] fluticasone propionate 50 mcg/actuation nasal spray,suspension (Flonase Allergy Relief) 2 spray intranasal DAILY PRN PRN Sinus Congestion 02/14/18 [History Last Taken Unknown] bupropion HCl 150 mg tablet,12 hr sustained-release 150 mg PO BID DEPRESSION 03/21/20 [History Last Taken 03/21/20] duloxetine 60 mg capsule,delayed release 60 mg PO DAILY DEPRESSION 03/21/20 [History Last Taken 03/21/20] omeprazole 40 mg capsule,delayed release 40 mg PO BID GERD 03/21/20 [History Last Taken 03/20/20] levothyroxine 75 mcg tablet 225 mcg PO DAILY@0600 thyroid 04/21/20 [History Last Taken Unknown] multivitamin with folic acid 400 mcg tablet 1 tab PO DAILYCM 05/07/20 [Rx Last Taken Unknown] tolterodine 2 mg capsule,extended release 24 hr 2 mg PO DAILY ##1 05/07/20 [Rx Last Taken Unknown] insulin detemir U-100 100 unit/mL subcutaneous solution 100 unit SQ BID 11/02/20 [History Last Taken Unknown] insulin regular hum U-500 conc 500 unit/mL(3 mL) subcut pen 30 units subcut TID 11/02/20 [History Last Taken Unknown] dulaglutide 1.5 mg/0.5 mL subcutaneous pen injector (Trulicity) mg subcut QWEEK 06/09/22 [History Last Taken Unknown] ergocalciferol (vitamin D2) 1,250 mcg (50,000 unit) capsule (Vitamin D2) 1 PO QWEEK 06/09/22 [History Last Taken Unknown] Allergy/AdvReac Type Severity Reaction Status Date / Time No Known Allergies Allergy Verified 11/02/20 15:40 Family History Mother Arthritis Diabetes Hypertension High cholesterol Osteoporosis Sister Breast cancer Cancer High cholesterol Brother Lung cancer High cholesterol Father Hypertension High cholesterol Surgical History (Updated 06/09/22 @ 07:[address] Waqar Cherry MD) Partial nontraumatic amputation of left foot Social History household members: none housing: apartment Smoking Status: Former smoker alcohol intake: former substance use type: does not use ROS ROS ED Constitutional Constitutional ED: Denies chills, fever(s), subjective, sweats or weakness Eyes Eyes: Denies blurry vision, change in vision or diplopia ENT ENT ED: Denies ear pain, rhinorrhea or sore throat Cardiovascular Cardiovascular: Denies chest pain, palpitations, paroxysmal nocturnal dyspnea or racing heartbeat Respiratory/Chest Respiratory/Chest: Reports cough, dyspnea and other Details: Patient gasp of breath when he was flat on the bed. He asked that the bed be raised. ; Denies dyspnea on exertion or paroxysmal nocturnal dyspnea Gastrointestinal Gastrointestinal: Denies abdominal pain, constipation, diarrhea, melena, nausea or vomiting Genitourinary Genitourinary ED: Denies dysuria, hematuria or urinary frequency Musculoskeletal Musculoskeletal: Denies arthralgias, back pain or myalgias Integumentary Denies abscess or Abrasions Neurologic Neurologic: Denies headache(s) or paresthesias Endocrine Endocrinology: Denies polydipsia, polyphagia or polyuria Hematologic/Lymphatic Hematologic/Lymphatic: Denies easy bleeding or easy bruising EXAM Physical Exam Const Vital Signs: 06/09/22 05:32 06/09/22 05:42 06/09/22 05:36 Temperature 98.7 F Temperature Source Oral Pulse Rate 88 Respiratory Rate 24 H Respiratory Effort Short of Breath Respiratory Depth Normal Respiratory Pattern Tachypnea Blood Pressure 165/105 H Blood Pressure Mean 125 Pulse Ox 96 Oxygen Delivery Method Nasal Cannula Nasal Cannula Nasal Cannula Oxygen Flow Rate (L/min) 4 4 4 06/09/22 05:36 Temperature Temperature Source Pulse Rate 72 Respiratory Rate 18 Respiratory Effort Respiratory Depth Respiratory Pattern Blood Pressure 155/91 H Blood Pressure Mean 112 Pulse Ox 95 Oxygen Delivery Method Nasal Cannula Oxygen Flow Rate (L/min) 4 Positive well nourished, well developed, obese and unkempt Constitutional Narrative: He did not appear in distress until he was flat on his back to transfer him from EMS cot to examination cot. General Appearance ED: unkempt and well developed Nutritional Appearance: obese HEENT Reports dry mucous membranes atraumatic Nose: other Other Details: Nares patent. No drainage noted. Ears are normal. Mouth ED: Yes dry mucous membranes Mouth: dry mucous membranes Eyes PERRL and EOMs intact bilaterally Eyes Narrative: There is no nystagmus. General Eye ED: Negative for pale conjunctiva or scleral icterus Neck no lymphadenopathy, supple and no JVD General: Negative for tenderness Chest Wall inspection of chest normal and palpation of chest normal Resp normal respiratory effort and clear to auscultation bilaterally Auscultation: rales bilateral base Cardio no murmurs Rate: regular rate Rhythm: regular rhythm Heart Sounds: S1 normal and S2 normal GI normal to inspection, nondistended, normoactive bowel sounds, soft to palpation, non-tender, non-distended and no masses GI Narrative: Unable to appreciate masses due to body habitus Back/Spine no CVA tenderness Cervical Spine: Negative for cervical spine tenderness Thoracic Spine / Upper Back: Negative for thoracic spinal tenderness Lumbar Spine / Lower Back: Negative for lumbar spinal tenderness Extremity Extremity Narrative: BKA on left due to gangrene. General Extremety ED: Yes edema; Negative for deformity or tenderness General Extremity: edema; Negative for deformity Neuro oriented x3, No CN's II-XII intact bilaterally and No no sensory deficits noted Tali Coma Scale: document GCS findings Spontaneous Obeys Commands Oriented 15 Sensorium / Orientation: alert Speech: Negative for speech normal Psych mental status grossly normal Appearance: unkempt Skin no wounds General Skin Exam: Negative for jaundice Lesions: no lesions Rashes: no rashes STROKE Vital Signs/Narrative: Vital Signs Temp Pulse Resp BP Pulse Ox O2 Del Method O2 Flow Rate 06/09/22 05:36 72 18 155/91 H 95 Nasal Cannula 4 06/09/22 05:36 Nasal Cannula 4 06/09/22 05:42 Nasal Cannula 4 06/09/22 05:32 98.7 F 88 24 H 165/105 H 96 Nasal Cannula 4 Inital Vital Signs reviewed: Yes NIHSS Initial: 1a Level of Consciousness: 0 1b LOC Questions (Score 2 if aphasic/stupor): 0 1c LOC Commands (Only score 1st attempt): 0 2 Best Gaze (If aphasic, use reflexive mvmts.): 0 3 Visual: 0 4 Facial Palsy: 1 5 Motor Arm Right (UN = amputation/fusion): 0 5 Motor Arm Left: 0 6 Motor Leg Right: 0 6 Motor Leg Left: 0 7 Limb ataxia (Only + if out of proportion): 0 8 Sensory (Aphasia/stupor=0 or 1, coma=2): 0 9 Best Language: 0 10 Dysarthria (mute, coma=2, intubated=UN): 1 11 Extinction and Inattention (only scored if +): 0 Total Score: 2 MDM MDM MDM Narrative Medical decision making narrative: Patient has 2 complaints 1 he probably had a stroke with onset yesterday at 1600. He also has shortness of breath which may be due to CHF, pneumonia or other cause. Work-up was undertaken for stroke and to determine the cause of his dyspnea. Patient is outside the window for tPA. CTA was not obtained since he has significant medical problems including history of renal disease due to diabetes. Lab Data Attestation: I reviewed the patient's lab results. Lab results narrative: CBC is elevated. There is slight shift. Coags normal. Basic metabolic panel is remarkable for a creatinine of 1.49 which is slightly above baseline. Troponin is normal with days of symptoms. Labs: Laboratory Results - last 24 hr 06/09/22 06/09/22 06/09/22 06:10 06:10 06:10 WBC 15.1 H RBC 5.68 Hgb 15.5 Hct 47.9 MCV 84.3 MCH 27.3 MCHC 32.4 RDW Std Deviation 48.8 H RDW Coeff of Jose 15.9 H Plt Count 308 MPV 10.3 Immature Gran % (Auto) 0.900 Neut % (Auto) 71.6 H Lymph % (Auto) 17.2 L [place] % (Auto) 6.9 Eos % (Auto) 2.9 Baso % (Auto) 0.5 Absolute Neuts (auto) 10.8 H Absolute Lymphs (auto) 2.61 Nucleated RBC % 0 PT 12.9 INR 1.0 APTT 30.1 Sodium 137 Potassium 4.1 Chloride 106 Carbon Dioxide 25.0 Anion Gap 6 BUN 15 Creatinine 1.49 H Estim Creat Clear Calc 51.72 Est GFR (MDRD) Af Amer 61 Est GFR (MDRD) Non-Af 50 L BUN/Creatinine Ratio 10.1 Glucose 118 H Calcium 9.1 Troponin I High Sens 24 B-Natriuretic Peptide 06/09/22 06:10 WBC RBC Hgb Hct MCV MCH MCHC RDW Std Deviation RDW Coeff of Jose Plt Count MPV Immature Gran % (Auto) Neut % (Auto) Lymph % (Auto) [place] % (Auto) Eos % (Auto) Baso % (Auto) Absolute Neuts (auto) Absolute Lymphs (auto) Nucleated RBC % PT INR APTT Sodium Potassium Chloride Carbon Dioxide Anion Gap BUN Creatinine Estim Creat Clear Calc Est GFR (MDRD) Af Amer Est GFR (MDRD) Non-Af BUN/Creatinine Ratio Glucose Calcium Troponin I High Sens B-Natriuretic Peptide 22.9 Radiography Diagnostic Testing: Clinical Impression(s) from Imaging Studies Brain CT 06/09/22 05:36 IMPRESSION: No acute intracranial abnormality. CT angiogram and/or MRI may be helpful to evaluate for acute infarct as clinically indicated. Chronic microvascular ischemic disease. Left mastoid disease. N.B. : The above Results were Read Back by Lauren Yang MD to Waqar Cherry MD, and understanding confirmed on 06/09/2022 06:55:17 (ET). Electronically Signed: Lauren Yang MD at 6:59 EDT , Chest X-Ray 06/09/22 05:36 IMPRESSION: Suspect bilateral basilar infiltrates and possible pneumonia. Stable cardiomegaly. Electronically Signed: Lauren Yang MD at 7:03 EDT , Portable chest x-ray is suboptimal. Patient has cardiomegaly. There may be bilateral small pleural effusions. Difficult to read because of body habitus. There is no obvious infiltrate. There is no pneumothorax. There is no cephalization. Osseous structures are unremarkable. This was independently reviewed and interpreted by me at 0700 EKG Initial EKG: Attestation: I personally reviewed and interpreted this EKG as follows: Interpretation: Sinus Rhythm (Rate is 86. There is evidence of first- degree AV block with a MS interval of 216 ms. QRS duration is 108 ms. QT dura tion 394 ms. [place] is normal.) Stroke Documentation Questions Stroke Team Activated: No Reviewed Inclusion/Exclusion criteria: No Was Patient considered for Endovascular Intervention?: No-CTA not indicated (As previously documented with patient's significant medical history renal disease and the fact that this started greater than 12 hours ago CTA was not ordered initially.) IV Alteplase (t-PA) Administered: No No contraindications for IV Alteplase (t-PA) administration.: No (Patient is outside the window) Alteplase (t-PA) risks, benefits, alternative discussed: No Discharge Plan Dx/Rx/DC Orders Clinical Impression: Acute CVA (cerebrovascular accident), Diabetic neuropathy associated with type 2 diabetes mellitus, HTN (hypertension), Chronic renal failure, stage 3 (moderate), Status post below-knee amputation of left lower extremity, Acute dyspnea Disposition Disposition: Acute Care Hospital [facility]
[2022-06-09] MEDS: Labetalol (Prefilled) 20 MG/4 ML IV (06:07)
[2022-06-09 06:20] LABS: Absolute Lymphocyte Count 2.61 X10^3/uL (0.83-4.51); Absolute Neutrophil Count 10.8 X10^3/uL (2.0-7.7); Basophil# 0.08 X10^3/uL; Basophil% 0.5 % (0-1); Eosinophil# 0.44 X10^3/uL; Eosinophils% 2.9 % (0-5); Hematocrit 47.9 % (40-54); Hemoglobin 15.5 g/dL (13.0-16.5); Lymphocyte # 2.61 X10^3/ul (0.83-4.51); Lymphocyte % 17.2 % (19-41); Mean Corp Hgb Conc 32.4 g/dL (32-36); Mean Corpuscular Hgb 27.3 pg (27.0-32.0); Mean Corpuscular Volume 84.3 fL (80-94); Mean Platelet Vol. 10.3 fl (6.2-12.0); Monocyte# 1.05 X10^3/uL; Monocyte% 6.9 % (0-10); NRBC Flagged by Analyzer 0 % (0-5); Neutrophil # 10.82 X10^3/uL (2.7-7.7); Neutrophil % 71.6 % (47-70); Platelet Count 308 K/mm3 (150-450); RBC Distribution Width CV 15.9 % (11.6-14.6); RBC Distribution Width SD 48.8 fl (35.1-43.9); Red Blood Count 5.68 M/mm3 (4.6-6.2); White Blood Count 15.1 K/mm3 (4.4-11.0)
[2022-06-09 06:27] LABS: Prothrombin Time (Protime)PT. 12.9 SECONDS (11.7-14.9)
[2022-06-09 06:28] LABS: Partial Thromboplast Time 30.1 Seconds (24.1-36.2)
[2022-06-09 06:47] LABS: Anion Gap 6 (5-15); BUN 15 mg/dL (7-18); BUN/Creat Ratio 10.1 RATIO (10-20); Calcium,Total 9.1 mg/dL (8.5-10.1); Chloride 106 mmol/L (98-107); Creatinine, Serum 1.49 mg/dL (0.70-1.30); EST Glomerular Filtration Rate 50 mL/min (>60); Est Glom Filt Rate - Afr Amer 61 mL/min (>60); Estimated Creatinine Clearance 51.72 ml/min; Glucose 118 mg/dL (74-106); Potassium 4.1 mmol/L (3.5-5.1); Sodium Level 137 mmol/L (136-145); Troponin-I HS 24 pg/mL (3.0-78.0)
[2022-06-09 07:09] LABS: BNP,B-Type NATRIURETIC PEPTIDE 22.9 pg/mL (0-100)
[2022-06-09 07:45] LABS: Bedside Glucose 106 mg/dL (74-106)
--- NOTE | 2022-06-09 07:45 | ECHOD_ITS ---
Reason For Study: TIA/CVA Procedure This was a 2D Doppler, Color Flow transthoracic echocardiogram. The study was technically difficult. Unable to utilize Definity for imaging due to no working IV. Waited > 20 minutes for RN to start IV. Exam performed portable in patient room. Left Ventricle Moderate concentric left ventricular hypertrophy. Based upon the 2D echocardiographic and contrast enhanced images obtained there appears to be grossly normal left ventricular size, wall motion, and systolic function. The estimated ejection fraction is 55 %. Diastolic function is indeterminate. Right Ventricle Based upon the 2D echocardiographic images obtained there appears to be grossly normal right ventricular size and systolic function. Atria The left atrium is mildly enlarged. Normal right atrium. No doppler evidence for ASD. Mitral Valve There is no mitral annular calcification. Normal mitral valve. Tricuspid Valve Normal tricuspid valve. Aortic Valve The aortic valve is not well visualized. Pulmonic Valve The pulmonic valve is not well visualized. Great Vessels The aortic root is not well visualized. Pericardium/Pleural No pericardial effusion. MMode/2D Measurements & Calculations LVIDd: 5.4 cm IVSd: 1.4 cm LAV(MOD-bp): 72.2 ml LVIDs: 4.3 cm LVPWd: 1.5 cm LAV(MOD-bp) Indexed: 26.0 ml/m2 RVDd: 3.5 cm FS: 20.2 % LAV(MOD-sp2): 54.9 ml LAV(MOD-sp4): 84.4 ml LA A4 area: 24.6 cm2 RA A4 area: 16.7 cm2 Time Measurements MV dec time: 0.19 sec Doppler Measurements & Calculations MV E max jose: 88.6 cm/sec Lat Peak E' Jose: 4.6 cm/sec Med Peak E' Joes: 7.4 cm/sec MV A max jose: 93.8 cm/sec E/E' lat: 19.4 E/E' med: 12.0 MV E/A: 0.95 MV dec slope: 480.0 cm/sec2 Ao V2 max: 121.2 cm/sec LV V1 max: 101.0 cm/sec Ao max P.0 mmHg LV V1 max P.1 mmHg PA V2 max: 99.5 cm/sec PA V2 mean: 73.2 cm/sec ECHO/Echo Complete Interpretation Summary The study was technically difficult. Based upon the 2D echocardiographic and contrast enhanced images obtained there appears to be grossly normal left ventricular size, wall motion, and systolic function. The estimated ejection fraction is 55 %. Moderate concentric left ventricular hypertrophy. The left atrium is mildly enlarged. Diastolic function is indeterminate. Ordering Physician: Nafisa Garza Referring Physician: NO PCP Performed By: Aislinn Carrillo, SARAH, RVT
--- NOTE | 2022-06-09 08:06 | HP.PCM.HOS_ITS ---
HPI - General General Date of Admission: 06/09/22 Date of Service: 06/09/22 Chief Complaint: R facial droop and SOB HPI Narrative ILIANA WANG, is a 66 M who presented to the emergency department [facility] on 06/09/2022 complaining of shortness of breath. The patient also was complaining of left-sided facial droop and decreased strength in his left arm. The patient reported decreased sensation to the emergency department physician but denied any new paresthesias or numbness to me on my exam. He stated the time of onset for his symptoms was yesterday at about 1600 with regards to his facial droop and left-sided weakness. He also reports that his shortness of breath worsened yesterday and is associated with a cough productive of clear to white sputum this is new as well. He reported headache to the emergency department but denied this to me. He denies any nausea vomiting diarrhea or constipation. He denies chest pain. He is reported low-grade fevers but nothing greater than 100.4. He has had some chills as well. He denies any sick contacts. In the emergency department his temperature was 98.7 heart rate 88, blood pressure 165/105, respiratory rate 24, and oxygen saturation was 96% on 4 L nasal cannula. There is not an oxygen saturation on room air. CBC shows a leukocytosis with a white count of 15.1 and a left shift. Coags are normal. Chemistry panel is at baseline with a elevated serum creatinine at 1.49 (baseline serum creatinine 1.5-1.8). Initial troponin was 24. BNP was 22.9. Chest x-ray shows bilateral lower lobe infiltrates and stable cardiomegaly. CT of his brain showed no acute intracranial abnormality, left mastoid disease and chronic microvascular ischemic disease. His EKG was normal sinus rhythm with low voltage diffusely likely rated to body habitus and a first-degree heart block with a prolonged WA interval, no ST-T wave changes consistent with acute ischemia. [facility] Medical History Alcohol abuse Alcoholism in recovery Anxiety Anxiety and depression Arthritis Below knee amputation BiPAP (biphasic positive airway pressure) dependence CAD (coronary artery disease) Charcot's joint of foot due to diabetes Chronic renal failure, stage 3 (moderate) COPD (chronic obstructive pulmonary disease) Depression Diabetes type 2, uncontrolled Diabetic foot ulcer associated with type 2 diabetes mellitus Diabetic neuropathy associated with type 2 diabetes mellitus Drug abuse Enlarged RV (right ventricle) Former smoker GERD (gastroesophageal reflux disease) GI problem Grade I diastolic dysfunction H/O transfusion of whole blood Hallux limitus of right foot Hearing problem High triglycerides HTN (hypertension) Hyperlipidemia Hypothyroidism Kidney disease New left bundle branch block Non-compliance CECILE treated with BiPAP Osteoarthritis Osteoporosis Physical debility Pneumonia prostate problems Pulmonary hypertension Recurrent infections Sleep apnea Super obesity Thyroid disorder Venous stasis dermatitis Vision problems Vitamin deficiency Home Medications ropinirole 0.25 mg tablet 0.25 mg PO BID restless leg syndrome 08/17/16 [History Last Taken 03/20/20] fluticasone propionate 50 mcg/actuation nasal spray,suspension (Flonase Allergy Relief) 2 spray intranasal DAILY PRN PRN Sinus Congestion 02/14/18 [History Last Taken Unknown] bupropion HCl 150 mg tablet,12 hr sustained-release 150 mg PO BID DEPRESSION 03/21/20 [History Last Taken 03/21/20] duloxetine 60 mg capsule,delayed release 60 mg PO DAILY DEPRESSION 03/21/20 [History Last Taken 03/21/20] omeprazole 40 mg capsule,delayed release 40 mg PO BID GERD 03/21/20 [History Last Taken 03/20/20] levothyroxine 75 mcg tablet 225 mcg PO DAILY@0600 thyroid 04/21/20 [History Last Taken Unknown] multivitamin with folic acid 400 mcg tablet 1 tab PO DAILYCM 05/07/20 [Rx Last Taken Unknown] tolterodine 2 mg capsule,extended release 24 hr 2 mg PO DAILY ##1 05/07/20 [Rx Last Taken Unknown] insulin detemir U-100 100 unit/mL subcutaneous solution 100 unit SQ BID 11/02/20 [History Last Taken Unknown] insulin regular hum U-500 conc 500 unit/mL(3 mL) subcut pen 30 units subcut TID 11/02/20 [History Last Taken Unknown] dulaglutide 1.5 mg/0.5 mL subcutaneous pen injector (Trulicity) mg subcut QWEEK 06/09/22 [History Last Taken Unknown] ergocalciferol (vitamin D2) 1,250 mcg (50,000 unit) capsule (Vitamin D2) 1 PO QWEEK 06/09/22 [History Last Taken Unknown] Allergy/AdvReac Type Severity Reaction Status Date / Time No Known Allergies Allergy Verified 11/02/20 15:40 Family History Mother Arthritis Diabetes Hypertension High cholesterol Osteoporosis Sister Breast cancer Cancer High cholesterol Brother Lung cancer High cholesterol Father Hypertension High cholesterol Surgical History Partial nontraumatic amputation of left foot Social History household members: none housing: apartment Smoking Status: Former smoker alcohol intake: former substance use type: does not use ROS Constitutional Constitutional: Reports fever(s), malaise and weakness; Denies anorexia, change in weight, chills, fatigue, night sweats or other Eyes Eyes: Denies blurry vision, change in eye color, change in vision, discharge from eye(s), double vision, erythema, eye pain, loss of vision or other ENT HEENT: Reports abnormal hearing and hearing loss; Denies dysphagia, ear pain, epistaxis, headache(s), nasal congestion, nasal discharge, post nasal drip, sinus pressure, sore throat or other Cardiovascular Cardiovascular: Denies chest pain, claudication, dyspnea on exertion, edema, lightheadedness, orthopnea, palpitations, paroxysmal nocturnal dyspnea, rapid heart rate, syncope or other Respiratory/Chest Respiratory/Chest: Reports cough, productive cough, shortness of breath at rest and shortness of breath with exertion; Denies dyspnea, excessive phlegm production, hemoptysis, wheezing or other Gastrointestinal Gastrointestinal: Denies abdominal pain, coffee ground emesis, constipation, diarrhea, dyspepsia, hematemesis, hematochezia, loose stools, melena, nausea, vomiting or other Genitourinary Genitourinary: Denies burning urination, difficulty urinating, dysuria, hematuria, nocturia, urinary frequency, urinary hesitancy, urinary incontinence, urinary urgency or other Musculoskeletal Musculoskeletal: Reports back pain; Denies arthralgias, joint pain, joint stiffness, joint swelling, myalgias, neck pain or other Neurologic Neurologic: Reports abnormal gait, focal weakness, numbness and paresthesias; Denies abnormal speech, confusion, disequilibrium, dizziness, headache(s), seizure-like activity, seizures, syncope, tingling, tremor(s) or other Psychiatric Psychiatric: Reports anxiety and depression; Denies homicidal ideation, suicidal ideation or other Endocrine Endocrinology: Denies change in body appearance, cold intolerance, excessive sweating, heat intolerance, polydipsia, polyuria or other Hematologic/Lymphatic Hematologic/Lymphatic: Denies anemia, easy bleeding, easy bruising, lymphadenopathy or other Allergic/Immunologic Allergic/Immunologic: Denies rhinitis, hives, eczemia, asthma or other Vital Signs Vital Signs Vital Signs: 06/09/22 05:32 06/09/22 05:42 06/09/22 05:36 Temperature 98.7 F Temperature Source Oral Pulse Rate 88 Respiratory Rate 24 H Respiratory Effort Short of Breath Respiratory Depth Normal Respiratory Pattern Tachypnea Blood Pressure 165/105 H Blood Pressure Mean 125 Pulse Ox 96 Oxygen Delivery Method Nasal Cannula Nasal Cannula Nasal Cannula Oxygen Flow Rate (L/min) 4 4 4 06/09/22 05:36 06/09/22 07:38 Temperature 99.2 F H Temperature Source Oral Pulse Rate 72 73 Respiratory Rate 18 16 Respiratory Effort Respiratory Depth Respiratory Pattern Blood Pressure 155/91 H 154/97 H Blood Pressure Mean 112 116 Pulse Ox 95 97 Oxygen Delivery Method Nasal Cannula Nasal Cannula Oxygen Flow Rate (L/min) 4 5 Weight Weight: 177.5 kg Body Mass Index (BMI) 56.1 Physical Exam Const alert, oriented x3, no apparent distress and well nourished Constitutional Narrative: Super morbid obese white male sitting up in bed naked, appears comfortable and nontoxic at this time, somewhat cantankerous General Appearance: cooperative HEENT normocephalic and head/scalp atraumatic HEENT Narrative: Mild hearing loss, edentulous, Mallampati 3-4, mucous membranes dry, no thrush Eyes PERRL, EOMs intact bilaterally and conjunctivae normal Neck no lymphadenopathy, supple, no JVD and no carotid bruits Neck Narrative: Neck is short and thick, trachea midline, no thyroid enlargement noted on exam Resp normal respiratory effort, no retractions and no use of accessory muscles Resp Narrative: Diffusely diminished with few crackles right base, currently requiring 4 to 5 L nasal cannula to maintain oxygen saturations greater than 88%, no signs of respiratory distress Auscultation: crackles; Negative for rales, rhonchi or wheezes Cardio regular rate, regular rhythm, S1 normal heart sound, S2 normal heart sound, no murmurs, no rub, no gallops, no clicks and no JVD Cardio Narrative: Distant secondary to body habitus GI normal to inspection, nondistended, normoactive bowel sounds, soft to palpation, non-tender and non-distended GI Narrative: Large protuberant abdomen with pannus Extremity no clubbing, cyanosis or edema Extremity Narrative: Left BKA with incision site well-healed and no wounds Skin no rashes or lesions noted, no wounds, skin turgor normal, no jaundice, no petechiae and no mottling Neuro oriented x3, No CN's II-XII intact bilaterally and No no focal motor deficits Neuro Narrative: Left-sided facial droop but all other cranial nerves are intact, mild pronator drift left upper extremity with weakness noted on exam more significant distally than proximally Psych affect normal Psych Narrative: Slightly continue cares at this time Results Lab / Micro Data Result Diagrams: 06/09/22 06:10 06/09/22 06:10 Labs: Laboratory Results - last 24 hr 06/09/22 06:10: WBC 15.1 H, RBC 5.68, Hgb 15.5, Hct 47.9, MCV 84.3, MCH 27.3, MCHC 32.4, RDW Std Deviation 48.8 H, RDW Coeff of Jose 15.9 H, Plt Count 308, MPV 10.3, Immature Gran % (Auto) 0.900, Neut % (Auto) 71.6 H, Lymph % (Auto) 17.2 L, [place] % (Auto) 6.9, Eos % (Auto) 2.9, Baso % (Auto) 0.5, Absolute Neuts (auto) 10.8 H, Absolute Lymphs (auto) 2.61, Nucleated RBC % 0 06/09/22 06:10: PT 12.9, INR 1.0, APTT 30.1 06/09/22 06:10: Sodium 137, Potassium 4.1, Chloride 106, Carbon Dioxide 25.0, Anion Gap 6, BUN 15, Creatinine 1.49 H, Estim Creat Clear Calc 51.72, Est GFR (MDRD) Af Amer 61, Est GFR (MDRD) Non-Af 50 L, BUN/Creatinine Ratio 10.1, Glucose 118 H, Calcium 9.1, Troponin I High Sens 24 06/09/22 06:10: B-Natriuretic Peptide 22.9 06/09/22 07:26: POC Glucose 106 Micro: Microbiology 06/09/22 06:25 Nasal Secretion SARS-CoV-2 Antigen (Rapid) - Final Radiology Impression Brain CT 06/09/22 05:36 IMPRESSION: No acute intracranial abnormality. CT angiogram and/or MRI may be helpful to evaluate for acute infarct as clinically indicated. Chronic microvascular ischemic disease. Left mastoid disease. N.B. : The above Results were Read Back by Lauren Yang MD to Waqar Cherry MD, and understanding confirmed on 06/09/2022 06:55:17 (ET). Electronically Signed: Lauren Yang MD at 6:59 EDT Reading Location ID and State: [id number] / [employer] Tel , Service support , Chest X-Ray 06/09/22 05:36 IMPRESSION: Suspect bilateral basilar infiltrates and possible pneumonia. Stable cardiomegaly. Electronically Signed: Lauren Yang MD at 7:03 EDT , Assessment & Plan Assessment/Plan (1) Stroke determined by clinical assessment: (2) Shortness of breath: PLAN: Plan Acute stroke -Patient with new onset left-sided facial droop and left upper extremity weaknes s--> onset 1600 yesterday therefore not a candidate for tPA -Patient is a left lower extremity BKA so it is difficult to ascertain exactly how weak his left lower extremity is at this time -Check echocardiogram -Check lipids -Check hemoglobin A1c -MRI of the brain/MRA of the head and neck -Start aspirin -Start Plavix -Start high intensity statin -PT/OT consultation -Speech therapy consultation Shortness of breath -Patient reports low-grade fevers at home however no documented temperature greater than 100.4 -Patient is currently on nasal cannula however documented oxygen saturation on room air is not found -Will try to wean to establish diagnosis of hypoxia if present -Cough and sputum production -Concern for suspected pneumonia -Check Legionella and strep pneumo antigen -Check respiratory panel -Start azithromycin and ceftriaxone for CAP coverage -No wheezing on exam so we will hold off on steroids at this time -Scheduled duo nebs with as needed albuterol -Incentive spirometry -Mucinex -Continue supplemental oxygen--> patient is currently on 5 L nasal cannula DM-2 -Suspect uncontrolled -Hold home Trulicity -Continue home Levemir 100 units twice daily -Continue home U500 insulin 30 units 3 times daily -Sliding scale -Accu-Cheks -Check hemoglobin A1c CKD stage IIIb -Baseline serum creatinine 1.5-1.8 -Current serum creatinine 1.49 -Continue to monitor Hypothyroidism -Continue home levothyroxine -Check TSH GERD -Continue home PPI 40 mg p.o. twice daily Hyperlipidemia -Patient is not on statin at home -We will start high-dose statin here given the fact that he presented with a stroke -Patient has refused statins previously -Lipid panel pending Elevated blood pressure -Patient does not have documented hypertension and is not on any baseline medications -We will continue to monitor -As needed medication available -We will allow for some permissive hypertension at this time given recent suspe cted stroke -May need to start antihypertensives-prior to discharge Obstructive sleep apnea -Continue home CPAP PAH who group 3 -Monitor clinically -Treat CECILE -Recommend weight loss Diabetic neuropathy with history of left lower extremity BKA -Clinically stable at this time -Recommend improved blood sugar control Depression -Continue home Wellbutrin/duloxetine Restless leg syndrome -Continue ropinirole nightly Urine incontinence -Continue tolterodine Morbid obesity -Recommend weight loss -Complicates treatment, prognosis, outcomes -BMI 56.1 DVT prophylaxis -Lovenox 40 mg SQ twice daily CODE STATUS -Full code Charges/Coding Visit Charges Inpatient E&M: 93023 Init Hosp L3
[2022-06-09] MEDS: Enoxaparin 40 MG/0.4 ML Syringe SC ×2 (10:51→23:17)
[2022-06-09] MEDS: Aspirin 81 MG TAB.CHEW PO (10:52)
[2022-06-09] MEDS: guaiFENesin 1,200 MG Tablet 1200 MG PO ×2 (10:52→23:17)
[2022-06-09] MEDS: DULoxetine Hcl 60 MG Capsule PO (10:52)
[2022-06-09] MEDS: Pantoprazole Sodium 40 MG Tablet PO ×2 (10:52→23:18)
[2022-06-09] MEDS: buPROPion (SR) 150 MG Tablet.SA PO ×2 (10:52→23:18)
[2022-06-09] MEDS: Pramipexole Di-HCl 0.125 MG Tablet PO ×2 (10:52→23:19)
[2022-06-09] MEDS: Multivitamins,Therapeutic Tablet 1 TABLET PO (10:52)
[2022-06-09] MEDS: Clopidogrel Bisulfate 75 MG Tablet PO (10:52)
[2022-06-09] MEDS: Tolterodine Tartrate 2 MG CAP.SA PO (10:52)
[2022-06-09] MEDS: Ipratropium/Albuterol Sulfate 3 ML AMPUL.NEB INHALATION ×2 (12:45→20:12)
--- NOTE | 2022-06-09 13:10 | CASEMGMT ---
RN MALGORZATA Face to Face with patient for initial transition planning/care coordination assessment. RN CM introduced self and role at [facility]. Patient lying in bed, alert and oriented. Patient willing to participate in assessment and is able to answer all questions appropriately. Care providers, pharmacy, and demographics verified. Patient wishes to discharge home will monitor for HHC pending progress with therapy. Patient states he has no further needs or concerns at this time. CM to follow for discharge planning needs that may arise. PCP: [facility] Specialists: Etta trade manager Preferred Pharmacy: [facility] Insurance: [employer] Prescription Benefit: yes Living Will/HPOA: none LNOK: sister Living Arrangements: Patient lives alone in a 2 story home with bed and bath on first floor. Patient states he is independent for self care, has friend that assists with cyber engineer. Transportation: [facility] DME/HHC: Patient states he has cane, walker, medical alert[facility], pulse ox, and BP cuff. Patient states he has Passport through [facility]. Patient has had HHC in the past but could not recall agency. Patient had previously been to [facility] and [facility]. Disposition Plan: Patient to discharge home with family support and follow-up plans in place. Will monitor for HHC and home oxygen at discharge. Shi DIEHL, RN, CM
[2022-06-09 17:17] LABS: Probe Check PASS
[2022-06-09 17:19] LABS: M R Staph aureus DNA By PCR POSITIVE (Negative)
[2022-06-09 18:00] LABS: Bedside Glucose 95 mg/dL (74-106)
[2022-06-09 21:50] LABS: Bedside Glucose 85 mg/dL (74-106)
[2022-06-09] MEDS: Atorvastatin Calcium 80 MG Tablet PO (23:17)
[2022-06-10] VITALS (12 sets, daily range): BP systolic 142–176; BP diastolic 71–90; PULSE 74–87; RESP 16–20; TEMP 36.1–37; O2SAT 95–98; BMI 55.6
[2022-06-10 00:35] LABS: Bedside Glucose 92 mg/dL (74-106)
--- NOTE | 2022-06-10 01:30 | CPS ---
RT attempted to get pt to wear bipap with sleep lab machine with nasal pillows as pt has at home. Pt was unable to tolerate, saying he couldn't breathe through his nose and he was anxious. RN notified. Pt refused V60 nasal mask and full face mask. He also didn't want sleep labs machine with nasal pillows saying he will have his home machine brought in later today. 4L nasal o2 on
[2022-06-10] MEDS: Ipratropium/Albuterol Sulfate 3 ML AMPUL.NEB INHALATION (02:02)
[2022-06-10] MEDS: Sodium Chloride 0.65% 1 SPRAY SPRAY.BTL 2 SPRAY NASAL (02:13)
--- NOTE | 2022-06-10 04:17 | NURSING ---
Patient noted to be non-compliant with both cardiac and oxygen saturation monitoring. Pt self-removed telemetry box and wires. aware and discontinued order d/t patient refusal. Pt noted to be anxious due to wires getting caught and pulled off, however after removal of equipment patient continued to have multiple needs and then subsequently refuse assistance. Afterwards pt would utilize call light for a new need and again subsequently refuse assistance. Constant and excessive use of call light and refusals for care complicate treatment of this patient. Multiple staff in to talk to patient about behaviors. Pt noted to impulsively and quickly roll back in forth in bed without regard to safety and medical equipment leading to self-removal of IV and multiple instances of nasal cannula removal. Pt claims he can't help it but is simultaneously ignoring advice and help from staff. Pt has refused CPAP/BiPAP despite requesting it, refused cardiac and oxygen saturation monitoring, self-removed IV, and self-removed nasal cannula. Pt uncooperative with care and continues to be high demand and acknowledges behaviors but remains unchanged.
[2022-06-10 05:44] LABS: Absolute Lymphocyte Count 2.48 X10^3/uL (0.83-4.51); Absolute Neutrophil Count 10.9 X10^3/uL (2.0-7.7); Basophil% 0.7 % (0-1); Eosinophil# 0.34 X10^3/uL; Eosinophils% 2.3 % (0-5); Hematocrit 49.4 % (40-54); Hemoglobin 16.4 g/dL (13.0-16.5); Lymphocyte # 2.48 X10^3/ul (0.83-4.51); Lymphocyte % 16.4 % (19-41); Mean Corp Hgb Conc 33.2 g/dL (32-36); Mean Corpuscular Hgb 27.8 pg (27.0-32.0); Mean Corpuscular Volume 83.9 fL (80-94); Mean Platelet Vol. 10.1 fl (6.2-12.0); Monocyte# 1.19 X10^3/uL; Monocyte% 7.9 % (0-10); NRBC Flagged by Analyzer 0 % (0-5); Neutrophil # 10.87 X10^3/uL (2.7-7.7); Neutrophil % 71.9 % (47-70); Platelet Count 292 K/mm3 (150-450); RBC Distribution Width CV 15.9 % (11.6-14.6); RBC Distribution Width SD 48.2 fl (35.1-43.9); Red Blood Count 5.89 M/mm3 (4.6-6.2); White Blood Count 15.1 K/mm3 (4.4-11.0)
[2022-06-10 06:27] LABS: ALB/GLOB Ratio 0.7 RATIO (0.9-2.4); AST(SGOT) 47 U/L (15-37); Alanine Aminotransfer ALT/SGPT 37 U/L (16-61); Albumin, Serum 3.1 g/dL (3.2-5.0); Alkaline Phosphatase 105 U/L (45-117); Anion Gap 9 (5-15); BUN 13 mg/dL (7-18); Calcium,Total 8.9 mg/dL (8.5-10.1); Chloride 102 mmol/L (98-107); Cholesterol 167 mg/dL (200); Creatinine, Serum 1.18 mg/dL (0.70-1.30); EST Glomerular Filtration Rate 66 mL/min (>60); Est Glom Filt Rate - Afr Amer 80 mL/min (>60); Globulin 4.6 g/dL (2.2-4.2); Glucose 120 mg/dL (74-106); High Density Lipoprotein 34 mg/dL; Magnesium 2.1 mg/dL (1.6-2.6); Phosphorus 3.7 mg/dL (2.5-4.9); Potassium 3.6 mmol/L (3.5-5.1); Protein, Total 7.7 g/dL (6.4-8.2); Sodium Level 135 mmol/L (136-145); Triglycerides 185 mg/dL; Very Low Density Lipoprotein 37 mg/dL (5-40)
[2022-06-10] MEDS: Levothyroxine 75 MCG Tablet 225 MCG PO (06:56)
--- NOTE | 2022-06-10 08:39 | CT_ITS ---
ACR Level 3 findings have been noted. An addendum which confirms receipt of the report will follow. STUDY: CTA HEAD AND NECK WITH CONTRAST REASON FOR EXAM: Male, 66 years old. Multiple shower emboli ischemic infarctions in the right cerebral hemisphere. RADIATION DOSAGE (If Supplied By Facility): CTDIvol = ( 35.46 ) mGy, DLP = ( 2133.81 ) mGycm TECHNIQUE: CT angiography was performed with a multi-detector CT scanner. Data acquisition was obtained from the skull base through the vertex following intravenous administration of 100 mL of ISOVUE-370. MIP images were reconstructed from the axial data set. Post-processing of the angiographic images was performed, with multiplanar reformation and 3D reconstruction. Individualized dose optimization techniques were used for this CT. COMPARISON: No relevant priors. FINDINGS: Motion degradation artifacts causing suboptimal visualization of the petrous segments of both internal carotid arteries. Motion degradation artifacts limiting visualization of the cavernous segments of the right internal carotid artery. Normal right supraclinoid ICA and bifurcation. Motion degradation artifacts rendering suboptimal visualization of the cavernous segments of the left internal carotid artery. Normal left supraclinoid ICA and bifurcation. Mildly hypoplastic right A1 segment of the anterior cerebral artery. Suspicious high-grade stenosis at the origin of the left A1 segment of the anterior cerebral artery. Normal intact anterior communicating artery (ACOM). High-grade stenosis in the right anterior pericallosal artery. Multiple irregular plaques along both pericallosal arteries. High-grade stenosis of the right distal M1 segment bifurcation and occluded anterior trunk of the right M2 segment and high-grade stenosis in the posterior trunk of the right M2 segment. There are missing M3 segments of the right MCA circulation. Minimal plaques without significant stenosis along the left M1 and M2 segments of the middle cerebral arteries, with a normal M1 bifurcation. Normal right posterior communicating artery (PCOM). No visible left posterior communicating artery (PCOM). No significant stenosis of the bilateral vertebral arteries despite motion artifacts. Normal basilar artery with a normal basilar bifurcation. The visualized bilateral superior cerebellar (SCA) arteries are normal. Normal bilateral P1, P2 and visualized P3 segments of the posterior cerebral arteries. There is no demonstrated aneurysm of the [place] of [place]. Multiple scattered subacute microembolic ischemic infarctions in the right cerebral hemispheres are obvious on MRI DWI sequence. AORTIC ARCH: Normal visualized aortic arch. Normal origins of the brachiocephalic, left common carotid, and left subclavian arteries. RIGHT CAROTID ARTERIES: Extensive calcified plaques causing high-grade stenosis of the right common carotid artery bifurcation. This extensive calcified plaques extend to the origin of the right carotid bulb. High-grade stenosis of the right proximal internal carotid artery origin due to extensive calcified plaques of the right carotid bulb. Mild adaptive narrowing of the right distal cervical internal carotid artery. Suspicious high-grade stenosis at the origin of the right external carotid artery due to extensive calcified plaques of the right common carotid artery bifurcation. LEFT CAROTID ARTERIES: Approximately 50% stenosis of the left distal common carotid artery bifurcation due to calcified plaques. At least 50% stenosis of the left carotid bulb origin due to the calcified plaques but detail is limited due to motion artifacts. Suspicious 50% stenosis at the origin of the left proximal internal carotid artery due to calcified plaque extending from the left distal common carotid bifurcation into the left carotid bulb. Detail is limited due to motion. Normal visualized cervical portion of the left internal carotid artery. Normal origin of the left external carotid artery (ECA). VERTEBRAL ARTERIES: Limited visualization of the vertebral arteries due to motion but no suspicious significant stenosis of the codominant vertebral arteries. CT/CTA Head AND Neck W/ Contrast IMPRESSION: 1. High-grade stenosis of the right distal M1 segment bifurcation with high-grade stenosis of the posterior trunk of the right M2 segment and proximal occlusion of the anterior trunk of the right M2 segment. Additionally, there are occluded M3 segments of the right MCA. 2. Motion degradation artifacts rendering suboptimal visualization of the petrous segments and cavernous segments of both internal carotid arteries. 3. High-grade stenosis of the right anterior pericallosal artery due to noncalcified atherosclerotic plaque. 4. High-grade stenosis of the right distal common carotid artery bifurcation extending to the right carotid bulb origin with adaptive narrowing of the right distal cervical internal carotid artery. 5. At least 50% stenosis of the left common carotid artery bifurcation due to calcified plaques extending to the origin of the left carotid bulb. Detail is limited due to motion and obesity 6. Normal aortic arch and origins of the great vessels. 7. No suspicious significant stenosis at the subclavian origins of the codominant vertebral arteries. Electronically Signed: Francisco Ceballos MD at 11:49 EDT ,
--- NOTE | 2022-06-10 09:11 | CASEMGMT ---
TANGELA called [facility] and spoke with Gely on the coverage line. Patient's disease case manager is Kristina Gaytan ([phone] [phone]). Patient has personal care aides from [place] 3 hours a day M,W, and F and an emergency response button. Liset Keys VARNISH MAKER FREDIS
--- NOTE | 2022-06-10 09:25 | MRI_ITS ---
We are attempting to reach an attending provider to discuss findings. An addendum with communication details will be sent when the communication is complete. EXAM: MR HEAD WITHOUT INTRAVENOUS CONTRAST CLINICAL INDICATION: Stroke. TECHNIQUE: Multiplanar and multisequence MR images of the brain were obtained without intravenous contrast. This report was created using [employer] report generation technology. COMPARISON: CT head without contrast 06/09/2022. FINDINGS: BRAIN AND EXTRA-AXIAL SPACES: Multiple scattered linear to nodular diffusion restrictions involving the right insular lobe, right temporal lobe, right parietal lobe and right central lobe. This also includes the right periventricular white matter. Several of these are visible on T2 FLAIR sequence and are consistent with subacute shower microembolic infarctions. Normal ventricles and cisterns. Prominent perivascular spaces in both anterior commissures. No intra- or extra-axial hemorrhage. No intracranial mass or mass effect. Posterior fossa structures are unremarkable. SELLA: Unremarkable. Normal sella turcica, pituitary gland, infundibular stalk, optic chiasm and hypothalamus. AUDITORY SYSTEM: Unremarkable. The internal auditory canals are patent. BONES/JOINTS: Unremarkable. No discrete lytic or blastic abnormalities. SINUSES: Unremarkable as visualized. Clear. MASTOID AIR CELLS: Unremarkable as visualized. Clear. ORBITS: Unremarkable as visualized. Both globes, extraocular muscles, optic nerves and retrobulbar fat appear unremarkable. VASCULATURE: Unremarkable as visualized. Normal flow voids in the major intracranial circulation. MRI/Brain without Contrast IMPRESSION: Multiple scattered subacute shower microembolic ischemic infarctions in the right cerebral hemisphere. COMMENT: CTA head and neck will be very helpful for further evaluation. Electronically Signed: Francisco Ceballos MD at 10:30 EDT ,
[2022-06-10 09:51] LABS: Bedside Glucose 120 mg/dL (74-106)
[2022-06-10] MEDS: Tolterodine Tartrate 2 MG CAP.SA PO (10:40)
[2022-06-10] MEDS: Enoxaparin 40 MG/0.4 ML Syringe SC ×2 (10:40→21:49)
[2022-06-10] MEDS: Pantoprazole Sodium 40 MG Tablet PO ×2 (10:40→21:52)
[2022-06-10] MEDS: Pramipexole Di-HCl 0.125 MG Tablet PO ×2 (10:40→21:51)
[2022-06-10] MEDS: buPROPion (SR) 150 MG Tablet.SA PO ×2 (10:40→21:51)
[2022-06-10] MEDS: guaiFENesin 1,200 MG Tablet 1200 MG PO ×2 (10:40→21:51)
[2022-06-10] MEDS: Clopidogrel Bisulfate 75 MG Tablet PO (10:40)
[2022-06-10] MEDS: Aspirin 81 MG TAB.CHEW PO (10:40)
[2022-06-10] MEDS: DULoxetine Hcl 60 MG Capsule PO (10:40)
[2022-06-10] MEDS: Multivitamins,Therapeutic Tablet 1 TABLET PO (10:40)
[2022-06-10] MEDS: Lisinopril 20 MG Tablet PO (10:42)
[2022-06-10] MEDS: Mupirocin Ointment 22gm Tube 1 APPLIC NASAL ×2 (10:42→21:49)
--- NOTE | 2022-06-10 10:57 | NURSING ---
Pt aware that he is admitted for stroke workup. Per nightshift RN, pt refused to wear telemetry overnight and order was changed by MD to standard non-tele. Pt educated by this RN of the importance of wearing tele d/t arrhythmias that could cause a stroke but refused because it's too many wires. Pt says he never refuses anything but just can't wear the tele because of the wires in the way.
--- NOTE | 2022-06-10 11:18 | TELEMED_ITS ---
[facility] has confirmed receipt of a request for visit. This document confirms receipt of the order initiating the consult. To find the results of the consultation, please view the patient's reports for the scanned Telemed Consult.
[2022-06-10] MEDS: Insulin Glargine-YFGN 100 UNIT/ML Pen SC ×2 (11:44→21:53)
[2022-06-10] MEDS: Insulin Lispro 100 UNIT/ML INSULN.PEN SC (11:48)
[2022-06-10 12:05] LABS: Bedside Glucose 182 mg/dL (74-106)
--- NOTE | 2022-06-10 13:01 | CASEMGMT ---
According to the [facility] website, the following are in-network tertiary facilities: [facility], [place], [facility], [facility], [facility], [facility], and . Sarah HIDALGO CM
--- NOTE | 2022-06-10 14:06 | CASEMGMT ---
SW completed a PHQ 9 with patient as he had a Stroke. Patient scored a 10 which indicates moderate depression. Patient was open to TANGELA providing counseling resources and information on the [facility] Stroke support group. Liset MCNEAL
--- NOTE | 2022-06-10 14:52 | PN.HOSP_ITS ---
Subjective Subjective Patient reports that he feels his facial droop is a little bit better and his hand may be a little bit stronger but still notices weakness especially in his first 3 digits of his left hand. He has been refusing to wear telemetry. I explained that I am concerned that he possibly has atrial fibrillation based on his MRI results and he is now agreeable after he eats lunch. Objective Data Objective Data Vital Signs: Vital Signs Temp Pulse Resp BP Pulse Ox O2 Del Method O2 Flow Rate 96.9 F L 87 18 159/73 H 98 Room Air 5 06/10/22 12:00 06/10/22 12:00 06/10/22 12:00 06/10/22 12:00 06/10/22 12:00 06/10/22 12:00 06/10/22 08:30 FiO2 96 06/10/22 08:05 Oxygen Flow Rate (L/min) 5 Oxygen Delivery Method Room Air Weight: 176 kg Body Mass Index (BMI) 55.6 Intake & Output: Intake and Output for Last 24 Hours 06/08/22 06/09/22 06/10/22 23:59 23:59 23:59 Intake Total 605 / 605 705 / 705 Output Total 400 / 1150 1150 / 1150 Balance 205 / -545 -445 / -445 Lab / Micro Data Result Diagrams: 06/10/22 04:42 06/10/22 04:42 Labs: Laboratory Results - last 24 hr 06/09/22 11:20: POC Glucose 85 06/09/22 13:20: MRSA (PCR) POSITIVE H 06/09/22 16:50: POC Glucose 95 06/09/22 23:15: POC Glucose 92 06/10/22 04:42: WBC 15.1 H, RBC 5.89, Hgb 16.4, Hct 49.4, MCV 83.9, MCH 27.8, MCHC 33.2, RDW Std Deviation 48.2 H, RDW Coeff of Jose 15.9 H, Plt Count 292, MPV 10.1, Immature Gran % (Auto) 0.800, Neut % (Auto) 71.9 H, Lymph % (Auto) 16.4 L, [place] % (Auto) 7.9, Eos % (Auto) 2.3, Baso % (Auto) 0.7, Absolute Neuts (auto) 10.9 H, Absolute Lymphs (auto) 2.48, Nucleated RBC % 0 06/10/22 04:42: Sodium 135 L, Potassium 3.6, Chloride 102, Carbon Dioxide 24.0, Anion Gap 9, BUN 13, Creatinine 1.18, Estim Creat Clear Calc 65.30, Est GFR (MDRD) Af Amer 80, Est GFR (MDRD) Non-Af 66, BUN/Creatinine Ratio 11.0, Glucose 120 H, Calcium 8.9, Phosphorus 3.7, Magnesium 2.1, Total Bilirubin 0.70, AST 47 H, ALT 37, Alkaline Phosphatase 105, Total Protein 7.7, Albumin 3.1 L, Globulin 4.6 H, Albumin/Globulin Ratio 0.7 L, Triglycerides 185, Cholesterol 167, LDL Cholesterol 96, VLDL Cholesterol 37, HDL Cholesterol 34 L, TSH 0.60 06/10/22 08:18: POC Glucose 120 H 06/10/22 11:40: POC Glucose 182 H Micro: Microbiology 06/10/22 07:00 Sputum, Expectorated/Coughed Gram Stain - Final 06/09/22 12:45 Mucosa - Nasopharyngeal Respiratory Panel (PCR) - Final 06/09/22 11:15 Urine, Random Legionella Antigen - Final 06/09/22 11:34 Urine, Random Streptococcus pneumoniae Antigen (M - Final 06/09/22 06:25 Nasal Secretion SARS-CoV-2 Antigen (Rapid) - Final Radiography Diagnostic Testing: Radiology Impression Head/Neck CTA 06/10/22 08:39 IMPRESSION: 1. High-grade stenosis of the right distal M1 segment bifurcation with high-grade stenosis of the posterior trunk of the right M2 segment and proximal occlusion of the anterior trunk of the right M2 segment. Additionally, there are occluded M3 segments of the right MCA. 2. Motion degradation artifacts rendering suboptimal visualization of the petrous segments and cavernous segments of both internal carotid arteries. 3. High-grade stenosis of the right anterior pericallosal artery due to noncalcified atherosclerotic plaque. 4. High-grade stenosis of the right distal common carotid artery bifurcation extending to the right carotid bulb origin with adaptive narrowing of the right distal cervical internal carotid artery. 5. At least 50% stenosis of the left common carotid artery bifurcation due to calcified plaques extending to the origin of the left carotid bulb. Detail is limited due to motion and obesity 6. Normal aortic arch and origins of the great vessels. 7. No suspicious significant stenosis at the subclavian origins of the codominant vertebral arteries. Electronically Signed: Francicso Ceballos MD at 11:49 EDT , ADDENDUM: 06/10/22 1202 IMPRESSION: 1. High-grade stenosis of the right distal M1 segment bifurcation with high-grade stenosis of the posterior trunk of the right M2 segment and proximal occlusion of the anterior trunk of the right M2 segment. Additionally, there are occluded M3 segments of the right MCA. 2. Motion degradation artifacts rendering suboptimal visualization of the petrous segments and cavernous segments of both internal carotid arteries. 3. High-grade stenosis of the right anterior pericallosal artery due to noncalcified atherosclerotic plaque. 4. High-grade stenosis of the right distal common carotid artery bifurcation extending to the right carotid bulb origin with adaptive narrowing of the right distal cervical internal carotid artery. 5. At least 50% stenosis of the left common carotid artery bifurcation due to calcified plaques extending to the origin of the left carotid bulb. Detail is limited due to motion and obesity 6. Normal aortic arch and origins of the great vessels. 7. No suspicious significant stenosis at the subclavian origins of the codominant vertebral arteries. N.B. : Shahrzad Christopher RN, confirmed on 06/10/2022 11:55:14 (ET) that the healthcare facility has received the radiology report. Electronically Signed: Francisco Ceballos MD at 11:49 EDT , Brain MRI 06/10/22 09:25 IMPRESSION: Multiple scattered subacute shower microembolic ischemic infarctions in the right cerebral hemisphere. COMMENT: CTA head and neck will be very helpful for further evaluation. Electronically Signed: Francisco Ceballos MD at 10:30 EDT , ADDENDUM: 06/10/22 1046 IMPRESSION: Multiple scattered subacute shower microembolic ischemic infarctions in the right cerebral hemisphere. COMMENT: CTA head and neck will be very helpful for further evaluation. N.B. : The above Results were Read Back by Francisco Ceballos MD to RN Shahrzad Christopher RN, and understanding confirmed on 06/10/2022 10:39:44 (ET). Electronically Signed: Francisco Ceballos MD at 10:30 EDT , Physical Exam Const alert, oriented x3, no apparent distress and well nourished Constitutional Narrative: Super morbid obese white male sitting up on the edge of the bed eating lunch appears comfortable and nontoxic at this time, more agreeable today, nursing at bedside General Appearance: cooperative HEENT normocephalic, head/scalp atraumatic and moist oral mucous membranes HEENT Narrative: Mallampati 3-4, edentulous, no thrush Eyes PERRL, EOMs intact bilaterally and conjunctivae normal Eyes Narrative: No scleral icterus Neck no lymphadenopathy, supple and no JVD Neck Narrative: Trachea midline, no thyroid enlargement Resp normal respiratory effort, no retractions and no use of accessory muscles Resp Narrative: Diffusely diminished but clear, exam is limited secondary to body habitus Auscultation: Negative for crackles, rales, rhonchi or wheezes Cardio regular rate, regular rhythm, S1 normal heart sound, S2 normal heart sound, no murmurs, no rub, no gallops, no clicks and no JVD Cardio Narrative: Distant secondary to body habitus GI normal to inspection, nondistended, normoactive bowel sounds, soft to palpation, non-tender and non-distended GI Narrative: Large protuberant abdomen with pannus Extremity no clubbing, cyanosis or edema Extremity Narrative: Left BKA with incision site well-healed and no wounds Neuro oriented x3, No CN's II-XII intact bilaterally and No no focal motor deficits Neuro Narrative: Still with mild left-sided facial droop but improved but all other cranial nerves are intact, persistent mild pronator drift left upper extremity with weakness noted on exam more significant distally than proximally Sensorium / Orientation: awake, alert, oriented to person, oriented to place and oriented to time Speech: speech normal Psych affect normal Assessment & Plan Assessment/Plan (1) Stroke determined by clinical assessment: (2) Shortness of breath: (3) Acute CVA (cerebrovascular accident): (4) Acute dyspnea: PLAN: Plan Acute right hemispheric stroke -Patient with new onset left-sided facial droop and left upper extremity weakness--> onset 1600 06/08/2022 therefore not a candidate for tPA -Patient is a left lower extremity BKA so it is difficult to ascertain exactly how weak his left lower extremity is at this time -Echocardiogram shows an EF of 55% with moderate concentric LVH and a left atrial enlargement that is mild -Unfortunately they were unable to perform bubble study due to IV not wait getting and difficulty restarting an IV -Total cholesterol was 167/LDL 96/HDL 34/triglycerides 185 -TSH is 0.6 -Hemoglobin A1c is 7.0 -Unable to perform MRA secondary to size however we we did get MRI -MRI showed multiple scattered subacute showering microembolic ischemic infarcts in the right cerebral hemisphere -Suspect cardioembolic patient is high risk for paroxysmal atrial fibrillation -Has been refusing telemetry so I am unclear if he has atrial fibrillation, discussed with him further and now he is agreeable, if no atrial fibrillation caught on telemetry will need outpatient event monitor -CTA obtained with improved renal function today -Markedly abnormal--> high-grade stenosis of the right distal M1 segment/high-grade stenosis of the posterior trunk of the right M2 segment/proximal occlusion of the anterior trunk of the right M2 segment/occluded M3 segment of the right MCA, high-grade stenosis of the right anterior pericallosal artery due to noncalcified atherosclerotic plaque, high- grade stenosis of the right common carotid artery bifurcation extending into the right carotid bulb, at least 50% stenosis of the left common carotid artery bifurcation, normal aortic arch, vertebrals appear normal -Continue aspirin and Plavix for now -Continue high intensity dose statin -PT and OT following however patient refused to see them earlier today--> encouraged compliance -We will consult vascular surgery with regards to right common carotid artery stenosis -Neurology consult pending Shortness of breath -Patient reports low-grade fevers at home however no documented temperature greater than 100.4 -Patient has been able to be transition to room air -Cough and sputum production -Concern for suspected pneumonia -No and Legionella antigens are negative -Respiratory panel is negative l -Continue sinew ceftriaxone and discontinue azithromycin -Patient appears to be clinically improving -Day 2 of 7 for antibiotics -Sputum culture pending and currently gram stain shows 2+ gram-positive cocci and 1+ gram-negative rods -Scheduled duo nebs with as needed albuterol -Incentive spirometry -Continue Mucinex -Supplemental oxygen has been weaned to off Right-sided carotid artery stenosis in the setting of a right-sided stroke -Consult vascular surgery -Discussed case with Dr. Shukla DM-2 -Hemoglobin A1c controlled at 7.0 -Hold home Trulicity -Continue home Levemir 100 units twice daily -Continue home U500 insulin 30 units 3 times daily -Sliding scale -Accu-Cheks CKD stage IIIb -Baseline serum creatinine 1.5-1.8 based on previous labs here -Current serum creatinine 1.18 -Continue to monitor Hypothyroidism -Continue home levothyroxine -TSH within normal limits GERD -Continue home PPI 40 mg p.o. twice daily Hyperlipidemia -Patient is not on statin at home -Continue high intensity atorvastatin -Patient has refused statins previously -Lipid panel pending Hypertension -Patient does not have documented hypertension and is not on any baseline medications -Blood pressure has consistently been elevated and I suspect the patient has underlying hypertension but not treated -Start lisinopril 20 mg daily -Continue to monitor and uptitrate versus add medications as needed Obstructive sleep apnea -Continue home CPAP PAH who group 3 -Monitor clinically -Treat CECILE -Recommend weight loss Diabetic neuropathy with history of left lower extremity BKA -Clinically stable at this time -Recommend improved blood sugar control Depression -Continue home Wellbutrin/duloxetine Restless leg syndrome -Continue ropinirole nightly Urine incontinence -Continue tolterodine Morbid obesity -Recommend weight loss -Complicates treatment, prognosis, outcomes -BMI 56.1 DVT prophylaxis -Lovenox 40 mg SQ twice daily CODE STATUS -Full code Charges/Coding Visit Charges Inpatient E&M: 23868 Subs Hosp L3
[2022-06-10] MEDS: Insulin U-500 UNITS/ML PEN 30 UNITS SC (16:52)
--- NOTE | 2022-06-10 16:54 | CON.PCM.SX_ITS ---
Assessment & Plan Assessment/Plan (1) Carotid stenosis with cerebral infarction less than 8 weeks ago: PLAN: -right ICA stenosis with right hemispheric symptoms/infarct -now on appropriate medical therapy -CTA images reviewed; high grade calcified stenosis, difficult to fully evaluate due to contrast, artifact issues but approx 71% stenosis by my measurement -will get duplex to help further define, but neck habitus may be limiting -given symptomatic nature and severity of stenosis recommend CEA -stress test -will plan for early/mid next week pending OR availability and testing results HPI Consult Data Date of Consult: 06/10/22 HPI Narrative HPI Narrative: ILIANA CHRISTOPHER, is a 66 M who presents with left arm/hand weakness beginning 06/06. He was delayed presenting to be evaluated so was out of window for any interventions. Several days prior to arm symptoms he also has right eye visual disturbances that he described as a large collection of floaters causing visual field defect that resolved spontaneously. MRI showed scattered right hemispheric infarcts. CTA neck revealed high grade right ICA stenosis with significant calcification; somewhat limited by artifact and contrast timing. No prior neck surgery or radiation. No limitations in neck mobility. Prior to admission does not appear to be on any antiplatelet or statin; DAPT and lipitor initiated already this admission. [facility] Medical History Alcohol abuse Alcoholism in recovery Anxiety Anxiety and depression Arthritis Below knee amputation BiPAP (biphasic positive airway pressure) dependence CAD (coronary artery disease) Charcot's joint of foot due to diabetes Chronic renal failure, stage 3 (moderate) COPD (chronic obstructive pulmonary disease) Depression Diabetes type 2, uncontrolled Diabetic foot ulcer associated with type 2 diabetes mellitus Diabetic neuropathy associated with type 2 diabetes mellitus Drug abuse Enlarged RV (right ventricle) Former smoker GERD (gastroesophageal reflux disease) GI problem Grade I diastolic dysfunction H/O transfusion of whole blood Hallux limitus of right foot Hearing problem High triglycerides HTN (hypertension) Hyperlipidemia Hypothyroidism Kidney disease New left bundle branch block Non-compliance CECILE treated with BiPAP Osteoarthritis Osteoporosis Physical debility Pneumonia prostate problems Pulmonary hypertension Recurrent infections Sleep apnea Super obesity Thyroid disorder Venous stasis dermatitis Vision problems Vitamin deficiency Home Medications ropinirole 0.25 mg tablet 0.25 mg PO BID restless leg syndrome 08/17/16 [History Last Taken 03/20/20] fluticasone propionate 50 mcg/actuation nasal spray,suspension (Flonase Allergy Relief) 2 spray intranasal DAILY PRN PRN Sinus Congestion 02/14/18 [History Last Taken Unknown] bupropion HCl 150 mg tablet,12 hr sustained-release 150 mg PO BID DEPRESSION 03/21/20 [History Last Taken 03/21/20] duloxetine 60 mg capsule,delayed release 60 mg PO DAILY DEPRESSION 03/21/20 [History Last Taken 03/21/20] omeprazole 40 mg capsule,delayed release 40 mg PO BID GERD 03/21/20 [History Last Taken 03/20/20] levothyroxine 75 mcg tablet 225 mcg PO DAILY@0600 thyroid 04/21/20 [History Last Taken Unknown] multivitamin with folic acid 400 mcg tablet 1 tab PO DAILYCM 05/07/20 [Rx Last Taken Unknown] tolterodine 2 mg capsule,extended release 24 hr 2 mg PO DAILY ##1 05/07/20 [Rx Last Taken Unknown] insulin detemir U-100 100 unit/mL subcutaneous solution 100 unit SQ BID 11/02/20 [History Last Taken Unknown] insulin regular hum U-500 conc 500 unit/mL(3 mL) subcut pen 30 units subcut TID 11/02/20 [History Last Taken Unknown] dulaglutide 1.5 mg/0.5 mL subcutaneous pen injector (Trulicity) mg subcut QWEEK 06/09/22 [History Last Taken Unknown] ergocalciferol (vitamin D2) 1,250 mcg (50,000 unit) capsule (Vitamin D2) 1 PO QWEEK 06/09/22 [History Last Taken Unknown] Allergy/AdvReac Type Severity Reaction Status Date / Time No Known Allergies Allergy Verified 11/02/20 15:40 Family History Mother Arthritis Diabetes Hypertension High cholesterol Osteoporosis Sister Breast cancer Cancer High cholesterol Brother Lung cancer High cholesterol Father Hypertension High cholesterol Surgical History Partial nontraumatic amputation of left foot Social History household members: none housing: apartment Smoking Status: Unknown if ever smoked alcohol intake: former substance use type: does not use ROS Constitutional Constitutional: Denies anorexia, chills, fever(s) or weight loss Eyes Eyes: Reports change in vision right (transient right eye partial loss of vision) Cardiovascular Cardiovascular: Reports chest pain and dyspnea; Denies palpitations Respiratory/Chest Respiratory/Chest: Reports cough, dyspnea and shortness of breath with exertion Gastrointestinal Gastrointestinal: Denies hematemesis or hematochezia Genitourinary Genitourinary: Denies hematuria Integumentary Integumentary: Denies non-healing lesions or skin ulcer Neurologic Neurologic: Reports focal weakness Hematologic/Lymphatic Hematologic/Lymphatic: Denies easy bleeding or easy bruising Physical Exam Const alert, oriented x3, no apparent distress and well nourished General Appearance: cooperative and well developed Nutritional Appearance: obese morbidly obese HEENT normocephalic and head/scalp atraumatic Eyes EOMs intact bilaterally and conjunctivae normal Neck full ROM and supple Thyroid: thyroid normal Carotids: bruit Positive for right Lymph Lymphatic: no lymphadenopathy noted Chest inspection of chest normal Resp normal respiratory effort, no retractions and clear to auscultation bilaterally Effort and Inspection: able to speak in complete sentences Auscultation: Negative for wheezes Cardio Rate: regular rate Rhythm: regular rhythm Heart Sounds: Negative for murmur Bruits: carotid bruit right GI normal to inspection, nondistended, normoactive bowel sounds Extremity General Extremity: amputation Skin no rashes or lesions noted Neuro CN's II-XII intact bilaterally Speech: speech normal Psych mental status grossly normal and affect normal Appearance: grossly normal Lab / Micro Data Result Diagrams: 06/10/22 04:42 06/10/22 04:42 Labs: Laboratory Results - last 24 hr 06/09/22 11:20: POC Glucose 85 06/09/22 13:20: MRSA (PCR) POSITIVE H 06/09/22 16:50: POC Glucose 95 06/09/22 23:15: POC Glucose 92 06/10/22 04:42: WBC 15.1 H, RBC 5.89, Hgb 16.4, Hct 49.4, MCV 83.9, MCH 27.8, MCHC 33.2, RDW Std Deviation 48.2 H, RDW Coeff of Jose 15.9 H, Plt Count 292, MPV 10.1, Immature Gran % (Auto) 0.800, Neut % (Auto) 71.9 H, Lymph % (Auto) 16.4 L, [place] % (Auto) 7.9, Eos % (Auto) 2.3, Baso % (Auto) 0.7, Absolute Neuts (auto) 10.9 H, Absolute Lymphs (auto) 2.48, Nucleated RBC % 0 06/10/22 04:42: Sodium 135 L, Potassium 3.6, Chloride 102, Carbon Dioxide 24.0, Anion Gap 9, BUN 13, Creatinine 1.18, Estim Creat Clear Calc 65.30, Est GFR (MDRD) Af Amer 80, Est GFR (MDRD) Non-Af 66, BUN/Creatinine Ratio 11.0, Glucose 120 H, Calcium 8.9, Phosphorus 3.7, Magnesium 2.1, Total Bilirubin 0.70, AST 47 H, ALT 37, Alkaline Phosphatase 105, Total Protein 7.7, Albumin 3.1 L, Globulin 4.6 H, Albumin/Globulin Ratio 0.7 L, Triglycerides 185, Cholesterol 167, LDL Cholesterol 96, VLDL Cholesterol 37, HDL Cholesterol 34 L, TSH 0.60 06/10/22 08:18: POC Glucose 120 H 06/10/22 11:40: POC Glucose 182 H Micro: Microbiology 06/10/22 07:00 Sputum, Expectorated/Coughed Gram Stain - Final 06/09/22 12:45 Mucosa - Nasopharyngeal Respiratory Panel (PCR) - Final Radiology Impression Head/Neck CTA 06/10/22 08:39 IMPRESSION: 1. High-grade stenosis of the right distal M1 segment bifurcation with high-grade stenosis of the posterior trunk of the right M2 segment and proximal occlusion of the anterior trunk of the right M2 segment. Additionally, there are occluded M3 segments of the right MCA. 2. Motion degradation artifacts rendering suboptimal visualization of the petrous segments and cavernous segments of both internal carotid arteries. 3. High-grade stenosis of the right anterior pericallosal artery due to noncalcified atherosclerotic plaque. 4. High-grade stenosis of the right distal common carotid artery bifurcation extending to the right carotid bulb origin with adaptive narrowing of the right distal cervical internal carotid artery. 5. At least 50% stenosis of the left common carotid artery bifurcation due to calcified plaques extending to the origin of the left carotid bulb. Detail is limited due to motion and obesity 6. Normal aortic arch and origins of the great vessels. 7. No suspicious significant stenosis at the subclavian origins of the codominant vertebral arteries. Electronically Signed: Francisco Ceballos MD at 11:49 EDT , ADDENDUM: 06/10/22 1202 IMPRESSION: 1. High-grade stenosis of the right distal M1 segment bifurcation with high-grade stenosis of the posterior trunk of the right M2 segment and proximal occlusion of the anterior trunk of the right M2 segment. Additionally, there are occluded M3 segments of the right MCA. 2. Motion degradation artifacts rendering suboptimal visualization of the petrous segments and cavernous segments of both internal carotid arteries. 3. High-grade stenosis of the right anterior pericallosal artery due to noncalcified atherosclerotic plaque. 4. High-grade stenosis of the right distal common carotid artery bifurcation extending to the right carotid bulb origin with adaptive narrowing of the right distal cervical internal carotid artery. 5. At least 50% stenosis of the left common carotid artery bifurcation due to calcified plaques extending to the origin of the left carotid bulb. Detail is limited due to motion and obesity 6. Normal aortic arch and origins of the great vessels. 7. No suspicious significant stenosis at the subclavian origins of the codominant vertebral arteries. N.B. : Shahrzad Christopher RN, confirmed on 06/10/2022 11:55:14 (ET) that the healthcare facility has received the radiology report. Electronically Signed: Francisco Ceballos MD at 11:49 EDT , Brain MRI 06/10/22 09:25 IMPRESSION: Multiple scattered subacute shower microembolic ischemic infarctions in the right cerebral hemisphere. COMMENT: CTA head and neck will be very helpful for further evaluation. Electronically Signed: Francisco Ceballos MD at 10:30 EDT , ADDENDUM: 06/10/22 1046 IMPRESSION: Multiple scattered subacute shower microembolic ischemic infarctions in the right cerebral hemisphere. COMMENT: CTA head and neck will be very helpful for further evaluation. N.B. : The above Results were Read Back by Francisco Ceballos MD to RN Shahrzad Christopher RN, and understanding confirmed on 06/10/2022 10:39:44 (ET). Electronically Signed: Francisco Ceballos MD at 10:30 EDT , Charges/Coding Visit Charges Inpatient E&M: 97927 Init Hosp L3
--- NOTE | 2022-06-10 17:13 | CDU_ITS ---
Reason For Study: Carotid stenosis, right hemispheric stroke Rt. Velocities/BP Lt. Velocities/BP Prox CCA 46/8.2 cm/sec. Prox CCA 114.8/16.3 cm/sec. Mid CCA 39.5/6.9 cm/sec. Mid CCA 127.8/24.1 cm/sec. Dist CCA 39.9/6.9 cm/sec. Dist CCA 102.8/24.3 cm/sec. Prox ICA 250.11/1102.7 cm/sec. Prox ICA 121.1/31.6 cm/sec. Mid ICA 56.4/17.9 cm/sec. Mid ICA 75.5/29.1 cm/sec. Dist ICA 45.4/14.6 cm/sec. Dist ICA 60.5/15.4 cm/sec. Rt. ICA/CCA = 6.27. Lt. ICA/CCA = 1.05. Prox ECA 289.9/49.8 cm/sec. Prox ECA 97.4/13.3 cm/sec. Rt. Vert. 50.9/14.6 cm/sec. Lt. Vert. 42.1/13.5 cm/sec. Right Extracranial There is homogeneous, smooth atherosclerotic plaque noted in the right common carotid artery. There is intimal thickening but no significant atherosclerotic plaque noted in the right internal carotid artery. The distal right internal carotid artery is not well visualized. There is heterogeneous, irregular atherosclerotic plaque noted in the right external carotid artery. Antegrade flow is noted in the right vertebral artery. Left Extracranial There is homogeneous, smooth atherosclerotic plaque noted in the left common carotid artery. There is heterogeneous, irregular atherosclerotic plaque noted in the left internal carotid artery. The left internal carotid artery is very tortuous. There is heterogeneous, irregular atherosclerotic plaque noted in the left external carotid artery. Antegrade flow is noted in the left vertebral artery. Procedure This is a Carotid Duplex examination using B-mode, color flow and specral Doppler. Carotid Duplex 98894. The study was technically difficult. The exam was of poor technical quality due to patient body habitus and patient movement. VL/Carotid Duplex Ultrasound Interpretation Summary Severe (>70%) stenosis right extracranial internal carotid. Mild (<50%) stenosis left extracranial internal carotid. Patent and antegrade vertebrals bilaterally. Ordering Physician: Mehdi Shukla Performed By: Shi Ann RVT
[2022-06-10 17:15] LABS: Bedside Glucose 138 mg/dL (74-106)
[2022-06-10] MEDS: busPIRone 5 MG Tablet PO ×2 (17:34→21:55)
[2022-06-10 18:05] LABS: Bedside Glucose 128 mg/dL (74-106)
[2022-06-10] MEDS: Acetaminophen 325 MG Tablet 650 MG PO (18:52)
[2022-06-10] MEDS: Atorvastatin Calcium 80 MG Tablet PO (21:51)
--- NOTE | 2022-06-10 22:14 | NURSING ---
Pt refusing tele monitoring over night. Education provided regarding dangers of not being tele monitored considering admission diagnosis and poc. Pt acknowledges understanding.
[2022-06-10 22:15] LABS: Bedside Glucose 136 mg/dL (74-106)
[2022-06-11] VITALS (8 sets, daily range): BP systolic 141–180; BP diastolic 79–114; PULSE 75–99; RESP 16–20; TEMP 35.8–37.5; O2SAT 94–99; BMI 55.6
--- NOTE | 2022-06-11 02:28 | EKG12_ITS ---
Test Reason : morning ekg Blood Pressure : / mmHG Vent. Rate : 074 BPM Atrial Rate : 074 BPM P-R Int : 240 ms QRS Dur : 108 ms QT Int : 432 ms P-R-T Axes : 085 088 093 degrees QTc Int : 479 ms Sinus rhythm with 1st degree A-V block Nonspecific ST abnormality Abnormal ECG When compared with ECG of 09-JUN-2022 05:41, MANUAL COMPARISON REQUIRED, DATA IS UNCONFIRMED Confirmed by AMANDA DACOSTA, JONH ([id number]), editor city ALYSSA DE ANDA ([id number]) on 06/12/2022 2:39:00 PM Referred By: Confirmed By:SHANE PTAEL MD
[2022-06-11] MEDS: Levothyroxine 75 MCG Tablet 225 MCG PO (06:25)
[2022-06-11] MEDS: busPIRone 5 MG Tablet PO ×3 (06:26→20:21)
[2022-06-11] MEDS: Aspirin 81 MG TAB.CHEW PO (06:28)
[2022-06-11] MEDS: Lisinopril 20 MG Tablet PO (06:28)
[2022-06-11] MEDS: Clopidogrel Bisulfate 75 MG Tablet PO (06:28)
[2022-06-11] MEDS: Ipratropium/Albuterol Sulfate 3 ML AMPUL.NEB INHALATION (07:13)
[2022-06-11 07:20] LABS: Absolute Lymphocyte Count 3.48 X10^3/uL (0.83-4.51); Absolute Neutrophil Count 6.7 X10^3/uL (2.0-7.7); Basophil# 0.09 X10^3/uL; Basophil% 0.8 % (0-1); Eosinophil# 0.34 X10^3/uL; Eosinophils% 2.9 % (0-5); Hematocrit 51.5 % (40-54); Hemoglobin 16.3 g/dL (13.0-16.5); Lymphocyte # 3.48 X10^3/ul (0.83-4.51); Lymphocyte % 29.3 % (19-41); Mean Corp Hgb Conc 31.7 g/dL (32-36); Mean Corpuscular Hgb 27.3 pg (27.0-32.0); Mean Corpuscular Volume 86.4 fL (80-94); Mean Platelet Vol. 10.6 fl (6.2-12.0); Monocyte# 1.16 X10^3/uL; Monocyte% 9.8 % (0-10); NRBC Flagged by Analyzer 0 % (0-5); Neutrophil % 56.4 % (47-70); Platelet Count 305 K/mm3 (150-450); RBC Distribution Width CV 15.9 % (11.6-14.6); RBC Distribution Width SD 49.7 fl (35.1-43.9); Red Blood Count 5.96 M/mm3 (4.6-6.2); White Blood Count 11.9 K/mm3 (4.4-11.0)
[2022-06-11 08:02] LABS: Anion Gap 7 (5-15); BUN 17 mg/dL (7-18); BUN/Creat Ratio 12.3 RATIO (10-20); Calcium,Total 9.3 mg/dL (8.5-10.1); Chloride 102 mmol/L (98-107); Creatinine, Serum 1.38 mg/dL (0.70-1.30); EST Glomerular Filtration Rate 55 mL/min (>60); Est Glom Filt Rate - Afr Amer 67 mL/min (>60); Estimated Creatinine Clearance 55.84 ml/min; Glucose 126 mg/dL (74-106); Potassium 3.5 mmol/L (3.5-5.1); Sodium Level 135 mmol/L (136-145)
[2022-06-11] MEDS: 0.9% Saline Lock 10 ML Syringe IV ×2 (08:37→20:34)
[2022-06-11] MEDS: Mupirocin Ointment 22gm Tube 1 APPLIC NASAL ×2 (12:51→20:22)
[2022-06-11] MEDS: guaiFENesin 1,200 MG Tablet 1200 MG PO ×2 (12:52→20:22)
[2022-06-11] MEDS: Pantoprazole Sodium 40 MG Tablet PO ×2 (12:52→20:21)
[2022-06-11] MEDS: Pramipexole Di-HCl 0.125 MG Tablet PO ×2 (12:52→20:22)
[2022-06-11] MEDS: buPROPion (SR) 150 MG Tablet.SA PO ×2 (12:52→20:22)
[2022-06-11] MEDS: Tolterodine Tartrate 2 MG CAP.SA PO (12:52)
[2022-06-11] MEDS: Multivitamins,Therapeutic Tablet 1 TABLET PO (12:52)
[2022-06-11] MEDS: DULoxetine Hcl 60 MG Capsule PO (12:52)
[2022-06-11] MEDS: Enoxaparin 40 MG/0.4 ML Syringe SC ×2 (12:55→20:22)
--- NOTE | 2022-06-11 13:04 | STRESSREP_ITS ---
Stress Test Report Date: 06/11/2022 Procedure: Pharmacologic stress nuclear imaging study Indications: Preoperative evaluation Consent: Per the patient Procedure: The patient underwent pharmacologic (Regadenoson) evaluation with a peak heart rate of 102 beats per minute (65%predicted maximal heart rate) and a peak blood pressure of 138/80 mmHg. The baseline ECG demonstrated normal sinus rhythm, incomplete right bundle branch block, nonspecific ST-T changes. EKG during lexiscan infusion revealed no significant ischemic changes. EKG post infusion revealed no significant ischemic changes [There were no cardiac dysrhythmias pretest, during pharmacologic infusion, or recovery]. [There was no complaint of chest discomfort during pharmacologic infusion or recovery]. The examination was discontinued secondary to completion of protocol. Impression: 1. Lexiscan stress test test is negative for Lexiscan infusion induced EKG changes of ischemia. 2. Lexiscan stress test test is negative for Lexiscan infusion induced chest pain. 3. Results of the nuclear portion of the test is as below Myocardial perfusion imaging study: Technique: The patient was injected with 15 millicuries of technetium 99m Cardiolite and subsequently rest SPECT Cardiolite nuclear imaging was obtained in the horizontal long, vertical long, and short axis views. The patient underwent pharmacologic [Regadenoson 0.4mg] evaluation. Please see above for details. The patient was injected with 44.7 millicuries of technetium 99m Cardiolite and subsequently stress SPECT Cardiolite nuclear imaging was obtained in the horizontal long, vertical long, and short axis views. A gated Cardiolite study at peak stress was obtained. Interpretation: Rest and stress SPECT Cardiolite nuclear imaging status post realignment, normalization, and attenuation correction demonstrate mild decrease in radioisotope uptake in a small portion of the distal anterior wall and apex at rest. Stress images reveal further decrease in the radioisotope uptake in the distal anterior wall and apex suggestive of moderate degree of ischemia involving this territory. Gated images reveal no significant regional wall motion abnormalities. The reported LVEF is greater than 70%. Impression: 1. Moderate degree of ischemia involving the distal anterior wall and apex cannot be excluded. 2. Estimated ejection fraction is greater than 70%. This note was generated with [employer] software. It may contain incorrect words, spelling, and punctuation that were not noted in checking the note before signing.
--- NOTE | 2022-06-11 13:20 | PN.HOSP_ITS ---
Subjective Subjective No significant issues overnight. Blood pressure remains elevated despite the initiation of antihypertensives yesterday. Patient agreeable to more antihypertensive medication being initiated today. He continues to refuse to wear his telemetry. Asking for date of surgery but unfortunately I am not aware of when this has been scheduled as of yet. Objective Data Objective Data Vital Signs: Vital Signs Temp Pulse Resp BP Pulse Ox O2 Del Method O2 Flow Rate 97.3 F L 99 18 158/102 H 96 Nasal Cannula 4 06/11/22 12:00 06/11/22 12:00 06/11/22 12:00 06/11/22 12:00 06/11/22 12:00 06/11/22 12:00 06/11/22 12:00 FiO2 96 06/10/22 08:05 Oxygen Flow Rate (L/min) 4 Oxygen Delivery Method Nasal Cannula Weight: 176 kg Body Mass Index (BMI) 55.6 Intake & Output: Intake and Output for Last 24 Hours 06/09/22 06/10/22 06/11/22 23:59 23:59 23:59 Intake Total 605 / 605 1305 / 1305 Output Total 400 / 1150 1700 / 1700 275 / 275 Balance 205 / -545 -395 / -395 -275 / -275 Lab / Micro Data Result Diagrams: 06/11/22 06:38 06/11/22 06:38 Labs: Laboratory Results - last 24 hr 06/10/22 16:51: POC Glucose 138 H 06/10/22 17:45: POC Glucose 128 H 06/10/22 21:51: POC Glucose 136 H 06/11/22 06:38: WBC 11.9 H, RBC 5.96, Hgb 16.3, Hct 51.5, MCV 86.4, MCH 27.3, MCHC 31.7 L, RDW Std Deviation 49.7 H, RDW Coeff of Jose 15.9 H, Plt Count 305, MPV 10.6, Immature Gran % (Auto) 0.800, Neut % (Auto) 56.4, Lymph % (Auto) 29.3, [place] % (Auto) 9.8, Eos % (Auto) 2.9, Baso % (Auto) 0.8, Absolute Neuts (auto) 6.7, Absolute Lymphs (auto) 3.48, Nucleated RBC % 0 06/11/22 06:38: Sodium 135 L, Potassium 3.5, Chloride 102, Carbon Dioxide 26.0, Anion Gap 7, BUN 17, Creatinine 1.38 H, Estim Creat Clear Calc 55.84, Est GFR (MDRD) Af Amer 67, Est GFR (MDRD) Non-Af 55 L, BUN/Creatinine Ratio 12.3, Glucose 126 H, Calcium 9.3 Micro: Microbiology 06/10/22 07:00 Sputum, Expectorated/Coughed Gram Stain - Final 06/10/22 07:00 Sputum, Expectorated/Coughed Respiratory Culture - Preliminary Appears to be normal respiratory dhiraj. Further studies to follow. 06/09/22 12:45 Mucosa - Nasopharyngeal Respiratory Panel (PCR) - Final 06/09/22 11:15 Urine, Random Legionella Antigen - Final 06/09/22 11:34 Urine, Random Streptococcus pneumoniae Antigen (M - Final 06/09/22 06:25 Nasal Secretion SARS-CoV-2 Antigen (Rapid) - Final Physical Exam Const alert, oriented x3, no apparent distress and well nourished Constitutional Narrative: Super morbid obese white male sitting up on the edge, nursing at the bedside, appears comfortable and nontoxic at this time General Appearance: cooperative HEENT normocephalic, head/scalp atraumatic and moist oral mucous membranes Eyes Eyes Narrative: No scleral icterus Resp normal respiratory effort, no retractions, no use of accessory muscles and clear to auscultation bilaterally Resp Narrative: Diffusely diminished but clear, exam is limited secondary to body habitus Auscultation: Negative for crackles, rales, rhonchi or wheezes Cardio regular rate, regular rhythm, S1 normal heart sound, S2 normal heart sound, no murmurs, no rub, no gallops, no clicks and no JVD Cardio Narrative: Distant secondary to body habitus GI normal to inspection, nondistended, normoactive bowel sounds, soft to palpation, non-tender and non-distended GI Narrative: Large protuberant abdomen with pannus Extremity no clubbing, cyanosis or edema Extremity Narrative: Left BKA with incision site well-healed and no wounds Neuro oriented x3, No CN's II-XII intact bilaterally, moves all extremities and No no focal motor deficits Neuro Narrative: Still with mild left-sided facial droop but remains improved since admission but all other cranial nerves are intact, pronator drift has resolved Sensorium / Orientation: awake, alert, oriented to person, oriented to place and oriented to time Speech: speech normal Psych affect normal Assessment & Plan Assessment/Plan (1) Stroke determined by clinical assessment: (2) Shortness of breath: (3) Acute CVA (cerebrovascular accident): (4) Acute dyspnea: PLAN: Plan Acute right hemispheric stroke -Patient with new onset left-sided facial droop and left upper extremity weakness--> onset 1600 06/08/2022 therefore not a candidate for tPA -Patient is a left lower extremity BKA so it is difficult to ascertain exactly how weak his left lower extremity is at this time -Echocardiogram shows an EF of 55% with moderate concentric LVH and a left atrial enlargement that is mild -Unfortunately they were unable to perform bubble study due to IV not wait getting and difficulty restarting an IV -Total cholesterol was 167/LDL 96/HDL 34/triglycerides 185 -TSH is 0.6 -Hemoglobin A1c is 7.0 -Unable to perform MRA secondary to size however we we did get MRI -MRI showed multiple scattered subacute showering microembolic ischemic inf arcts in the right cerebral hemisphere -Suspect cardioembolic patient is high risk for paroxysmal atrial fibrillation -Has been refusing telemetry so I am unclear if he has atrial fibrillation, discussed with him further and now he is agreeable, if no atrial fibrillation caught on telemetry will need outpatient event monitor -CTA obtained with improved renal function today -Markedly abnormal--> high-grade stenosis of the right distal M1 segment/high-grade stenosis of the posterior trunk of the right M2 segment/proximal occlusion of the anterior trunk of the right M2 segment/occluded M3 segment of the right MCA, high-grade stenosis of the right anterior pericallosal artery due to noncalcified atherosclerotic plaque, high- grade stenosis of the right common carotid artery bifurcation extending into the right carotid bulb, at least 50% stenosis of the left common carotid artery bifurcation, normal aortic arch, vertebrals appear normal -Continue aspirin and Plavix for now -Continue high intensity dose statin -PT and OT following however patient refused to see them earlier today--> e ncouraged compliance -We will consult vascular surgery with regards to right common carotid artery s tenosis -Neurology consult pending Aspiration pneumonia -Patient reports low-grade fevers at home however no documented temperature greater than 100.4 -Cough and sputum production -Concern for suspected pneumonia -No and Legionella antigens are negative -Respiratory panel is negative -Continue antibiotics but will convert to Unasyn for better aspiration coverage -Patient appears to be clinically improving -Day 3 of 7 for antibiotics -Sputum culture showing normal respiratory dhiraj at this time -Scheduled duo nebs with as needed albuterol -Incentive spirometry -Continue Mucinex -Supplemental oxygen has been weaned to off currently but patient is requiring intermittent supplemental oxygen -White count is trending down Right-sided carotid artery stenosis in the setting of a right-sided stroke -Plan is for vascular surgery with carotid endarterectomy early next week -Continue aspirin and Plavix -Preoperative stress test performed today and pending result -We will try to improve blood pressure management in the short-term to maximize and optimize the patient for surgery -Per discussion with vascular surgery they would like the patient to remain admitted until surgery is completed DM-2 -Hemoglobin A1c controlled at 7.0 -Hold home Trulicity -Continue home Levemir 100 units twice daily -Continue home U500 insulin 30 units 3 times daily -Sliding scale -Accu-Cheks CKD stage IIIb -Baseline serum creatinine 1.5-1.8 based on previous labs here -Current serum creatinine 1.38 -Continue to monitor Hypothyroidism -Continue home levothyroxine -TSH within normal limits GERD -Continue home PPI 40 mg p.o. twice daily Hyperlipidemia -Patient is not on statin at home -Continue high intensity atorvastatin -Patient has refused statins previously -Lipid panel pending Hypertension -Patient does not have documented hypertension and is not on any baseline medications -Blood pressure has consistently been elevated and I suspect the patient has underlying hypertension but not treated -Start lisinopril 20 mg daily -Continue to monitor and uptitrate versus add medications as needed Obstructive sleep apnea -Continue home CPAP PAH who group 3 -Monitor clinically -Treat CECILE -Recommend weight loss Diabetic neuropathy with history of left lower extremity BKA -Clinically stable at this time -Recommend improved blood sugar control Depression -Continue home Wellbutrin/duloxetine Restless leg syndrome -Continue ropinirole nightly Urine incontinence -Continue tolterodine Morbid obesity -Recommend weight loss -Complicates treatment, prognosis, outcomes -BMI 56.1 DVT prophylaxis -Lovenox 40 mg SQ twice daily CODE STATUS -Full code Charges/Coding Visit Charges Inpatient E&M: 26558 Subs Hosp L2
--- NOTE | 2022-06-11 13:47 | CASEMGMT ---
Therapy is recommending a bariatric walker for patient. Therapy also feels patient would benefit from going to a SNF short term for rehab. SW went to patient's room to talk with him about a d/c plan. When SW re-introduced self to patient he became fidgety in the bed and would not look at SW. SW broached the topic of short term rehab. Patient said he is going to be here until beginning of next week. Patient said he will go somewhere if he needs to. Patient has been [place] and [facility]. SW let patient know SW will continue to follow and assist him with d/c planning. SW asked patient how he was feeling. Patient said he is feeling a little better, but still, out of sorts. Patient said he was waiting on his breathing treatment. SW let him know if SW sees the Respiratory Therapist SW will let him/her know. SW told patient if he ever feels like he needs to talk with SW he is welcome to ask for SW. Patient again became fidgety and looking around the room. Patient was tearful. Patient did not want to talk at the moment. SW let patient know SW will check back with him. He thanked SW. Liset Keys [employer] FREDIS
[2022-06-11 15:56] LABS: Bedside Glucose 114 mg/dL (74-106)
[2022-06-11 15:56] LABS: Bedside Glucose 162 mg/dL (74-106)
[2022-06-11 18:06] LABS: Bedside Glucose 133 mg/dL (74-106)
[2022-06-11] MEDS: Atorvastatin Calcium 80 MG Tablet PO (20:21)
[2022-06-11] MEDS: Carvedilol 12.5 MG Tablet PO (20:22)
[2022-06-11] MEDS: Insulin Glargine-YFGN 100 UNIT/ML Pen SC (20:23)
[2022-06-12] VITALS (8 sets, daily range): BP systolic 121–160; BP diastolic 72–85; PULSE 65–89; RESP 16–20; TEMP 35.8–37.2; O2SAT 95–100; BMI 55.6
[2022-06-12] MEDS: Acetaminophen 325 MG Tablet 650 MG PO (02:34)
[2022-06-12] MEDS: 0.9% Saline Lock 10 ML Syringe IV (02:34)
[2022-06-12 03:26] LABS: Bedside Glucose 155 mg/dL (74-106)
[2022-06-12 04:36] LABS: Bedside Glucose 61 mg/dL (74-106)
[2022-06-12 04:36] LABS: Bedside Glucose 75 mg/dL (74-106)
[2022-06-12 04:36] LABS: Bedside Glucose 81 mg/dL (74-106)
[2022-06-12] MEDS: busPIRone 5 MG Tablet PO ×3 (06:30→21:41)
[2022-06-12] MEDS: Levothyroxine 75 MCG Tablet 225 MCG PO (06:30)
[2022-06-12] MEDS: Insulin Lispro 100 UNIT/ML INSULN.PEN SC (06:31)
--- NOTE | 2022-06-12 06:53 | NURSING ---
documentation completed by Dawna reviewed by this RN
[2022-06-12 07:25] LABS: Bedside Glucose 179 mg/dL (74-106)
[2022-06-12] MEDS: Mupirocin Ointment 22gm Tube 1 APPLIC NASAL ×2 (09:55→21:42)
[2022-06-12] MEDS: Carvedilol 12.5 MG Tablet PO ×2 (09:56→21:41)
[2022-06-12] MEDS: Aspirin 81 MG TAB.CHEW PO (09:56)
[2022-06-12] MEDS: Lisinopril 20 MG Tablet PO (09:56)
[2022-06-12] MEDS: buPROPion (SR) 150 MG Tablet.SA PO ×2 (09:56→21:41)
[2022-06-12] MEDS: Pantoprazole Sodium 40 MG Tablet PO ×2 (09:56→21:41)
[2022-06-12] MEDS: Enoxaparin 40 MG/0.4 ML Syringe SC ×2 (09:56→21:40)
[2022-06-12] MEDS: DULoxetine Hcl 60 MG Capsule PO (09:58)
[2022-06-12] MEDS: Clopidogrel Bisulfate 75 MG Tablet PO (09:58)
[2022-06-12] MEDS: Pramipexole Di-HCl 0.125 MG Tablet PO ×2 (09:59→21:41)
[2022-06-12] MEDS: Tolterodine Tartrate 2 MG CAP.SA PO (09:59)
[2022-06-12] MEDS: Multivitamins,Therapeutic Tablet 1 TABLET PO (09:59)
[2022-06-12] MEDS: guaiFENesin 1,200 MG Tablet 1200 MG PO ×2 (09:59→21:41)
[2022-06-12] MEDS: Insulin Glargine-YFGN 100 UNIT/ML Pen 80 UNIT SC ×2 (11:05→21:40)
[2022-06-12 13:30] LABS: Bedside Glucose 155 mg/dL (74-106)
--- NOTE | 2022-06-12 13:41 | PN.HOSP_ITS ---
Subjective Subjective States he had a good night. Blood pressures overall improved. Evidently he and Dr. Shukla had a discussion about options for him with regards to his stenosis and he has given medical versus surgical options. The patient is considering these and will let Dr. Shukla know tomorrow he has decided however he states r ight now he is leaning towards medical options. Objective Data Objective Data Vital Signs: Vital Signs Temp Pulse Resp BP Pulse Ox O2 Del Method O2 Flow Rate 96.6 F L 76 18 132/72 H 96 Room Air 4 06/12/22 13:24 06/12/22 13:24 06/12/22 13:24 06/12/22 13:24 06/12/22 13:24 06/12/22 13:24 06/12/22 07:25 FiO2 96 06/10/22 08:05 Oxygen Flow Rate (L/min) 4 Oxygen Delivery Method Room Air Weight: 176 kg Body Mass Index (BMI) 55.6 Intake & Output: Intake and Output for Last 24 Hours 06/10/22 06/11/22 06/12/22 23:59 23:59 23:59 Intake Total 1305 / 1305 474 / 474 512 / 512 Output Total 1700 / 1700 275 / 450 375 / 375 Balance -395 / -395 199 / 24 137 / 137 Lab / Micro Data Result Diagrams: 06/11/22 06:38 06/11/22 06:38 Labs: Laboratory Results - last 24 hr 06/11/22 06:23: POC Glucose 114 H 06/11/22 14:20: POC Glucose 162 H 06/11/22 17:23: POC Glucose 133 H 06/11/22 20:20: POC Glucose 155 H 06/12/22 03:14: POC Glucose 61 L 06/12/22 03:30: POC Glucose 75 06/12/22 03:59: POC Glucose 81 06/12/22 06:28: POC Glucose 179 H 06/12/22 13:09: POC Glucose 155 H Micro: Microbiology 06/10/22 07:00 Sputum, Expectorated/Coughed Gram Stain - Final 06/10/22 07:00 Sputum, Expectorated/Coughed Respiratory Culture - Preliminary Staphylococcus aureus 06/09/22 12:45 Mucosa - Nasopharyngeal Respiratory Panel (PCR) - Final 06/09/22 11:15 Urine, Random Legionella Antigen - Final 06/09/22 11:34 Urine, Random Streptococcus pneumoniae Antigen (M - Final 06/09/22 06:25 Nasal Secretion SARS-CoV-2 Antigen (Rapid) - Final Radiography Diagnostic Testing: Radiology Impression Carotid Duplex 06/10/22 17:13 Interpretation Summary Severe (>70%) stenosis right extracranial internal carotid. Mild (<50%) stenosis left extracranial internal carotid. Patent and antegrade vertebrals bilaterally. Ordering Physician: Mehdi Shukla Performed By: Shi Ann, RVT Physical Exam Const alert, oriented x3, no apparent distress and well nourished Constitutional Narrative: Super morbid obese white male lying in bed, appears comfortable and nontoxic, currently on BiPAP but when he has been weaned to room air General Appearance: cooperative HEENT normocephalic, head/scalp atraumatic and moist oral mucous membranes Resp normal respiratory effort, no retractions, no use of accessory muscles and clear to auscultation bilaterally Resp Narrative: Diffusely diminished but clear, exam is limited secondary to body habitus Auscultation: Negative for crackles, rales, rhonchi or wheezes Cardio regular rate, regular rhythm, S1 normal heart sound, S2 normal heart sound, no murmurs, no rub, no gallops, no clicks and no JVD Cardio Narrative: Distant secondary to body habitus GI normal to inspection, nondistended, normoactive bowel sounds, soft to palpation, non-tender and non-distended GI Narrative: Large protuberant abdomen with pannus Extremity no clubbing, cyanosis or edema Extremity Narrative: Left BKA with incision site well-healed and no wounds Neuro oriented x3, No CN's II-XII intact bilaterally, moves all extremities and No no focal motor deficits Neuro Narrative: Very minimal left-sided facial droop but remains improved since admission but all other cranial nerves are intact, pronator drift remains resolved Sensorium / Orientation: awake, alert, oriented to person, oriented to place and oriented to time Speech: speech normal Assessment & Plan Assessment/Plan (1) Stroke determined by clinical assessment: (2) Shortness of breath: (3) Acute CVA (cerebrovascular accident): (4) Acute dyspnea: PLAN: Plan Acute right hemispheric stroke -Patient with new onset left-sided facial droop and left upper extremity weakness--> onset 1600 06/08/2022 therefore not a candidate for tPA -Patient is a left lower extremity BKA so it is difficult to ascertain exactly how weak his left lower extremity is at this time -Echocardiogram shows an EF of 55% with moderate concentric LVH and a left atrial enlargement that is mild -Unfortunately they were unable to perform bubble study due to IV not wait getting and difficulty restarting an IV -Total cholesterol was 167/LDL 96/HDL 34/triglycerides 185 -TSH is 0.6 -Hemoglobin A1c is 7.0 -Unable to perform MRA secondary to size however we we did get MRI -MRI showed multiple scattered subacute showering microembolic ischemic infarcts in the right cerebral hemisphere -Suspect cardioembolic patient is high risk for paroxysmal atrial fibrillation -Has been refusing telemetry so I am unclear if he has atrial fibrillation, discussed with him further and now he is agreeable, if no atrial fibrillation caught on telemetry will need outpatient event monitor -CTA obtained with improved renal function today -Markedly abnormal--> high-grade stenosis of the right distal M1 segment/high-grade stenosis of the posterior trunk of the right M2 segment/proximal occlusion of the anterior trunk of the right M2 segment/occluded M3 segment of the right MCA, high-grade stenosis of the right anterior pericallosal artery due to noncalcified atherosclerotic plaque, high- grade stenosis of the right common carotid artery bifurcation extending into the right carotid bulb, at least 50% stenosis of the left common carotid artery bifurcation, normal aortic arch, vertebrals appear normal -Continue aspirin and Plavix for now -Continue high intensity dose statin -PT and OT following however patient refused to see them earlier today--> encouraged compliance -We will consult vascular surgery with regards to right common carotid artery stenosis -Neurology consult pending Aspiration pneumonia -Patient reports low-grade fevers at home however no documented temperature greater than 100.4 -Cough and sputum production -Concern for suspected pneumonia -No and Legionella antigens are negative -Respiratory panel is negative -Continue antibiotics but will convert to Unasyn for better aspiration coverage -Patient appears to be clinically improving -Day 4 of 7 for antibiotics -Sputum culture showing normal respiratory dhiraj at this time -Scheduled duo nebs with as needed albuterol -Incentive spirometry -Continue Mucinex -Now on room air Right-sided carotid artery stenosis in the setting of a right-sided stroke -Plan has been altered some with review of ultrasound as stenosis appears just greater than 70% -Medical versus surgical options were discussed with patient on 06/12/2022 and patient will consider and let vascular surgery know on 06/13/2022 how he desires to proceed -Medical therapy as opted for patient should be able to discharge home in the next 24 hours -Continue aspirin and Plavix -Preoperative stress test was negative DM-2 -Hemoglobin A1c controlled at 7.0 -Hold home Trulicity -Continue home Levemir decreased to 80 units twice daily as patient had low blood sugar overnight -Suspect his diet here is altered compared to his home diet and that is why decreased dosing is required -Continue home U500 insulin 30 units 3 times daily -Sliding scale -Accu-Cheks CKD stage IIIb -Baseline serum creatinine 1.5-1.8 based on previous labs here -Current serum creatinine 1.38 -Continue to monitor Hypothyroidism -Continue home levothyroxine -TSH within normal limits GERD -Continue home PPI 40 mg p.o. twice daily Hyperlipidemia -Patient is not on statin at home -Continue high intensity atorvastatin -Patient has refused statins previously -Lipid panel pending Hypertension -Patient does not have documented hypertension and is not on any baseline medications -Blood pressure has consistently been elevated and I suspect the patient has underlying hypertension but not treated -Start lisinopril 20 mg daily -Continue to monitor and uptitrate versus add medications as needed Obstructive sleep apnea -Continue home CPAP PAH who group 3 -Monitor clinically -Treat CECILE -Recommend weight loss Diabetic neuropathy with history of left lower extremity BKA -Clinically stable at this time -Recommend improved blood sugar control Depression -Continue home Wellbutrin/duloxetine Restless leg syndrome -Continue ropinirole nightly Urine incontinence -Continue tolterodine Morbid obesity -Recommend weight loss -Complicates treatment, prognosis, outcomes -BMI 56.1 DVT prophylaxis -Lovenox 40 mg SQ twice daily CODE STATUS -Full code Charges/Coding Visit Charges Inpatient E&M: 28018 Subs Hosp L2
--- NOTE | 2022-06-12 14:28 | CASEMGMT ---
Per therapy, patient does not need therapy at discharge. ROCKY MCGARRY in to discuss bariatric walker with patient. Patient states his preferred provider is [facility]. [facility], they states that walker will need to be order and could be delivered to patient at the soonest next Wednesday. ROCKY MCGARRY upated patient, patient has standard walker that he can use till bariatric walker is delivered to patient's home by [facility]. Patient states he will also need transport home tomorrow when he is discharged. ROCKY MCGARRY updated TANGELA Keys. ROCKY MCGARRY obtained script from hospitalist and referral made to [facility] and arranged for walker to be delivered to patient's home. ROCKY MCGARRY updated the patient. Patient had no further questions or concerns at this time. CM will continue to follow this patient and plan for a safe discharge.
--- NOTE | 2022-06-12 14:59 | PN.SURG_ITS ---
Subjective Subjective No new issues overnight. Cont improvement in left hand and speech. Patient continues to consider his options. He has some reluctance to proceed with surgery. But also fearful of not acting if he needs to do so now. Had very lengthy discussion of options, relative risks, and available evidence for both medical and surgical options. He was not on any antiplatelet or anticoagulation when stroke occurred. He was on statin. Objective Data Objective Data Vital Signs: Vital Signs Temp Pulse Resp BP Pulse Ox O2 Del Method O2 Flow Rate 96.6 F L 76 18 132/72 H 96 CPAP 4 06/12/22 13:24 06/12/22 13:24 06/12/22 13:24 06/12/22 13:24 06/12/22 13:24 06/12/22 13:40 06/12/22 13:40 FiO2 96 06/10/22 08:05 Oxygen Flow Rate (L/min) 4 Oxygen Delivery Method CPAP Weight: 388 lb 0.217 oz Body Mass Index (BMI) 55.6 Intake & Output: Intake and Output for Last 24 Hours 06/10/22 06/11/22 06/12/22 23:59 23:59 23:59 Intake Total 1305 / 1305 474 / 474 624 / 624 Output Total 1700 / 1700 275 / 450 375 / 375 Balance -395 / -395 199 / 24 249 / 249 Lab / Micro Data Result Diagrams: 06/11/22 06:38 06/11/22 06:38 Labs: Laboratory Results - last 24 hr 06/11/22 06:23: POC Glucose 114 H 06/11/22 14:20: POC Glucose 162 H 06/11/22 17:23: POC Glucose 133 H 06/11/22 20:20: POC Glucose 155 H 06/12/22 03:14: POC Glucose 61 L 06/12/22 03:30: POC Glucose 75 06/12/22 03:59: POC Glucose 81 06/12/22 06:28: POC Glucose 179 H 06/12/22 13:09: POC Glucose 155 H Micro: Microbiology 06/10/22 07:00 Sputum, Expectorated/Coughed Gram Stain - Final 06/10/22 07:00 Sputum, Expectorated/Coughed Respiratory Culture - Preliminary Staphylococcus aureus 06/09/22 12:45 Mucosa - Nasopharyngeal Respiratory Panel (PCR) - Final 06/09/22 11:15 Urine, Random Legionella Antigen - Final 06/09/22 11:34 Urine, Random Streptococcus pneumoniae Antigen (M - Final 06/09/22 06:25 Nasal Secretion SARS-CoV-2 Antigen (Rapid) - Final Radiography Diagnostic Testing: Radiology Impression Carotid Duplex 06/10/22 17:13 Interpretation Summary Severe (>70%) stenosis right extracranial internal carotid. Mild (<50%) stenosis left extracranial internal carotid. Patent and antegrade vertebrals bilaterally. Ordering Physician: Mehdi Suhkla Performed By: Shi Ann RVT Physical Exam Const alert, oriented x3, no apparent distress and healthy appearing General Appearance: cooperative; Negative for combative or lethargic Orientation / Consciousness: awake Exam Limitations: no limitations HEENT Head and Scalp: normocephalic and atraumatic Eyes EOMs intact bilaterally Neck full ROM Resp normal respiratory effort, no use of accessory muscles and clear to auscultation bilaterally Effort and Inspection: Negative for labored, stridor or audible wheezes Cardio regular rate and regular rhythm Back/Spine Cervical Spine: cervical ROM normal Extremity General Extremity: amputation Neuro oriented x3 and CN's II-XII intact bilaterally Psych thought process normal, cooperative, affect normal, speech normal and activity/motor behavior normal Assessment & Plan Assessment/Plan (1) Carotid stenosis with cerebral infarction less than 8 weeks ago: PLAN: -duplex images reviewed; low end of 70-99% by velocity, difficult study -this is consistent with CTA, which was also a limited study -CVA occurred while on no antiplatelet, and given this has room for risk reduction with best medical therapy -both medical or surgical are reasonable options -surgical procedure a little more of challenge given body habitus/girth of neck but feasible to safely perform -patient going to consider things today and decide tomorrow -will attempt to schedule for Wednesday which puts him at 8 days out from event (generally prefer surgery 7-14 days post CVA) -whatever he chooses is reasonable, and can change mind at later date Charges/Coding Visit Charges Inpatient E&M: 72628 Subs Hosp L3
--- NOTE | 2022-06-12 15:39 | CASEMGMT ---
The plan is for patient to be discharged tomorrow. Patient utilizes [facility] for transportation. SW called [facility] transport ([phone]) and arranged for patient to get picked up at 4p. TANGELA asked the [facility] patient care representative who should be called if patient's discharge is canceled. The patient care representative said they are closed on the weekends so there is no one to call. The confirmation number is [id number]. Plan: d/c home. Transport set up through [facility] for a 4p bead picker. Liset Keys PANTOGRAPH TRANSFERRERRenee MCNEAL
--- NOTE | 2022-06-12 15:51 | CASEMGMT ---
SW went to patient's room to check in with patient, but he was sleeping. Liset Keys PATHOLOGY LABORATORY TECHNOLOGIST FREDIS
[2022-06-12 16:40] LABS: Bedside Glucose 163 mg/dL (74-106)
[2022-06-12 21:40] LABS: Bedside Glucose 124 mg/dL (74-106)
[2022-06-12] MEDS: Atorvastatin Calcium 80 MG Tablet PO (21:41)
[2022-06-12 22:10] LABS: Bedside Glucose 147 mg/dL (74-106)
[2022-06-13] VITALS (7 sets, daily range): BP systolic 94–167; BP diastolic 62–83; PULSE 59–90; RESP 18–20; TEMP 35.7–36.6; O2SAT 94–100
[2022-06-13] MEDS: busPIRone 5 MG Tablet PO (05:30)
[2022-06-13] MEDS: Levothyroxine 75 MCG Tablet 225 MCG PO (05:31)
--- NOTE | 2022-06-13 06:40 | PN.HOSP_ITS ---
Objective Data Objective Data Vital Signs: Vital Signs Temp Pulse Resp BP Pulse Ox O2 Del Method O2 Flow Rate 97.7 F L 59 L 20 H 125/83 H 96 CPAP 4 06/13/22 05:30 06/13/22 05:30 06/13/22 05:30 06/13/22 05:30 06/13/22 05:30 06/13/22 05:30 06/12/22 13:40 FiO2 96 06/10/22 08:05 Oxygen Flow Rate (L/min) 4 Oxygen Delivery Method CPAP Weight: 388 lb 0.217 oz Body Mass Index (BMI) 55.6 Intake & Output: Intake and Output for Last 24 Hours 06/11/22 06/12/22 06/13/22 23:59 23:59 23:59 Intake Total 474 / 474 1716 / 1716 212 / 212 Output Total 275 / 450 650 / 650 Balance 199 / 24 1066 / 1066 / Lab / Micro Data Result Diagrams: 06/11/22 06:38 06/11/22 06:38 Labs: Laboratory Results - last 24 hr 06/12/22 06:28: POC Glucose 179 H 06/12/22 11:02: POC Glucose 124 H 06/12/22 13:09: POC Glucose 155 H 06/12/22 16:20: POC Glucose 163 H 06/12/22 21:39: POC Glucose 147 H Micro: Microbiology 06/10/22 07:00 Sputum, Expectorated/Coughed Gram Stain - Final 06/10/22 07:00 Sputum, Expectorated/Coughed Respiratory Culture - Preliminary Staphylococcus aureus 06/09/22 12:45 Mucosa - Nasopharyngeal Respiratory Panel (PCR) - Final 06/09/22 11:15 Urine, Random Legionella Antigen - Final 06/09/22 11:34 Urine, Random Streptococcus pneumoniae Antigen (M - Final 06/09/22 06:25 Nasal Secretion SARS-CoV-2 Antigen (Rapid) - Final Assessment & Plan Assessment/Plan (1) Acute CVA (cerebrovascular accident): PLAN: Plan The patient is a 66 y/o M w/ PMHx: History of EtOH abuse in recover, Diabetes mellitus type II, HTN, HLD, Anxiety and Depression, CKD stage IIIb, Hx Polystance abuse, Former tobacco use, GERD, COPD, CECILE on BIPAP q HS, Hypot hyroidism, Morbid Obesity who presents to the [facility] ED on 06/09/22 with history of onset left-sided facial droop and left upper extremity weakness with decreased sensation to the extremity with onset of symptoms approximately 1600 the day prior with ED presentation specifically because of mildly worsening dyspnea and reported productive cough of clear to white sputum which is new as well as a headache with low-grade temperatures. #1. Acute left-sided facial droop and left upper extremity weakness secondary to multiple scattered subacute shower microembolic ischemic infarctions in the right cerebellar hemisphere complicated by bilateral carotid stenoses, worse right-sided carotid stenosis in the setting of a right-sided stroke: ED evaluation included CT of the brain with no acute intracranial abnormality at that time, follow-up CT head and neck with a high-grade stenosis right distal M1 segment bifurcation with high-grade stenosis posterior trunk right M2 segment and proximal occlusion anterior trunk right M2 segment with additionally occluded M3 segments of the right MCA, high-grade stenosis right anterior pericallosal artery, high-grade stenosis right distal common carotid artery bi furcation extending to the right carotid bulb, at least 50% stenosis left common carotid artery bifurcation. Given timing patient was not tPA candidate. Patient admitted to PCU, maintained on serial NIH stroke scale assessments, PT/OT/case management/speech therapy/nutrition consulted per protocol. MRI of the brain obtained with noted multiple scattered subacute shower and microembolic ischemic infarct in the right cerebral hemisphere. Carotid ultrasound follow-up obtained with noted severe 6 greater than 70% stenosis right extracranial internal carotid and mild less than 50% stenosis left extracranial internal carotid with patent antegrade vertebrals bilaterally. Echo obtained with noted grossly normal LV size, wall motion and systolic function, EF 55%, moderate concentric LVH, mildly LA enlarged LA, diastolic function indeterminate. Hemoglobin A1c 7.0%. Cholesterol with total 167, LDL 96, HDL 34, triglycerides 185, TSH 0.60. Patient maintained on aspirin, Plavix, high intensity statin. Vascular surgery consulted and following and patient is still deciding whether or not he would like to have vascular intervention or continue only medical therapy. Of note patient did undergo preoperative cardiac stress testing for potential vascular intervention and this was noted to be negative for inducible ischemia. Of note patient has continued to refuse telemetry thus unclear if going in and out of atrial fibrillation especially given MRI findings. #2. Bilateral basilar pneumonia, concern for aspiration pneumonia especially given acute presentation with initial hypoxia presentation: CXR in the ED w/ suspected bilateral basilar infiltrates and possible pneumonia, stable cardiomegaly. Legionella and streptococcal antigen negative. Rapid COVID antigen negative. Respiratory full viral panel negative. Sputum culture preliminary with rare staph aureus with sensitivities pending. Patient currently maintained on IV Unasyn, clinically improving, will plan to continue a total of 7 days of antibiotic therapy. Will maintain on ATC DuoNeb therapies and p.o. albuterol, encourage I-S, head of bed, continued on Mucinex. #3. 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: Hold oral home regimen, continued on home Levemir 80 units as patient did have hypoglycemic events during presentation although suspect this is likely secondary to diet alterations in the hospital setting, ADA diet, continue speech evaluations given concerns for aspiration, also continued on new 530 units 3 times daily, accu checks w/ ISS. Holding patient home Trulicity. Hemoglobin A1c 7.0%. Nutrition consulted and following given acute present ation. #4. Hypertension: Patient with documented hypertension presenting not on any medications, started on lisinopril 20 mg daily, titrate as needed to achieve appropriate control in the acute setting as noted #1. #5. Hyperlipidemia: High-dose statin given presentation added, has previously refused, patient may decide to discontinue, FLP as noted above. #6. Chronic Kidney Disease Stage IIIb: Admission BUN/Cr 34/1.53, baseline renal function appears 1.5-1.8, 06/12/2022 creatinine 1.38, 06/13/2022 BUN/creatinine []. #7. Hypothyroidism: TSH within normal limits, continue levothyroxine regimen. #8. Anxiety and depression: We will continue patient home duloxetine and Wellbutrin regimen. #9. Morbid Obesity: Weight loss and lifestyle changes encouraged, nutrition consulted and following given acute presentation. #10. Restless leg syndrome: We will continue patient home Requip nightly. #11. GERD: We will continue patient on PPI. #12. CECILE: CPAP q HS. #13. DVT prophylaxis: SCDs, Lovenox.
[2022-06-13 06:42] LABS: Absolute Lymphocyte Count 2.86 X10^3/uL (0.83-4.51); Basophil% 0.9 % (0-1); Eosinophil# 0.51 X10^3/uL; Eosinophils% 4.4 % (0-5); Hematocrit 46.9 % (40-54); Hemoglobin 15.2 g/dL (13.0-16.5); Lymphocyte # 2.86 X10^3/ul (0.83-4.51); Lymphocyte % 24.5 % (19-41); Mean Corp Hgb Conc 32.4 g/dL (32-36); Mean Corpuscular Hgb 27.7 pg (27.0-32.0); Mean Corpuscular Volume 85.6 fL (80-94); Mean Platelet Vol. 10.1 fl (6.2-12.0); Monocyte# 1.12 X10^3/uL; Monocyte% 9.6 % (0-10); NRBC Flagged by Analyzer 0 % (0-5); Neutrophil # 7.03 X10^3/uL (2.7-7.7); Platelet Count 279 K/mm3 (150-450); RBC Distribution Width CV 15.7 % (11.6-14.6); RBC Distribution Width SD 49.1 fl (35.1-43.9); Red Blood Count 5.48 M/mm3 (4.6-6.2); White Blood Count 11.7 K/mm3 (4.4-11.0)
[2022-06-13 07:10] LABS: ALB/GLOB Ratio 0.7 RATIO (0.9-2.4); AST(SGOT) 76 U/L (15-37); Alanine Aminotransfer ALT/SGPT 48 U/L (16-61); Albumin, Serum 2.9 g/dL (3.2-5.0); Alkaline Phosphatase 88 U/L (45-117); Anion Gap 7 (5-15); BUN 25 mg/dL (7-18); BUN/Creat Ratio 17.1 RATIO (10-20); Calcium,Total 9.1 mg/dL (8.5-10.1); Chloride 107 mmol/L (98-107); Creatinine, Serum 1.46 mg/dL (0.70-1.30); EST Glomerular Filtration Rate 52 mL/min (>60); Est Glom Filt Rate - Afr Amer 62 mL/min (>60); Estimated Creatinine Clearance 52.78 ml/min; Globulin 4.1 g/dL (2.2-4.2); Glucose 79 mg/dL (74-106); Potassium 3.8 mmol/L (3.5-5.1); Sodium Level 139 mmol/L (136-145)
--- NOTE | 2022-06-13 09:08 | PN.SURG_ITS ---
Subjective Subjective No changes overnight. Patient has considered options and has decided for surveillance imaging and best medical tx. Objective Data Objective Data Vital Signs: Vital Signs Temp Pulse Resp BP Pulse Ox O2 Del Method O2 Flow Rate 97.8 F 64 18 167/76 H 100 CPAP 4 06/13/22 08:00 06/13/22 08:00 06/13/22 08:00 06/13/22 08:00 06/13/22 08:00 06/13/22 08:00 06/13/22 08:00 FiO2 96 06/10/22 08:05 Oxygen Flow Rate (L/min) 4 Oxygen Delivery Method CPAP Weight: 388 lb 0.217 oz Body Mass Index (BMI) 55.6 Intake & Output: Intake and Output for Last 24 Hours 06/11/22 06/12/22 06/13/22 23:59 23:59 23:59 Intake Total 474 / 474 1716 / 1716 212 / 212 Output Total 275 / 450 650 / 650 Balance 199 / 24 1066 / 1066 212 / 212 Lab / Micro Data Result Diagrams: 06/13/22 06:10 06/13/22 06:10 Labs: Laboratory Results - last 24 hr 06/12/22 11:02: POC Glucose 124 H 06/12/22 13:09: POC Glucose 155 H 06/12/22 16:20: POC Glucose 163 H 06/12/22 21:39: POC Glucose 147 H 06/13/22 06:10: WBC 11.7 H, RBC 5.48, Hgb 15.2, Hct 46.9, MCV 85.6, MCH 27.7, MCHC 32.4, RDW Std Deviation 49.1 H, RDW Coeff of Jose 15.7 H, Plt Count 279, MPV 10.1, Immature Gran % (Auto) 0.600, Neut % (Auto) 60.0, Lymph % (Auto) 24.5, [place] % (Auto) 9.6, Eos % (Auto) 4.4, Baso % (Auto) 0.9, Absolute Neuts (auto) 7.0, Absolute Lymphs (auto) 2.86, Nucleated RBC % 0 06/13/22 06:10: Sodium 139, Potassium 3.8, Chloride 107, Carbon Dioxide 25.0, Anion Gap 7, BUN 25 H, Creatinine 1.46 H, Estim Creat Clear Calc 52.78, Est GFR (MDRD) Af Amer 62, Est GFR (MDRD) Non-Af 52 L, BUN/Creatinine Ratio 17.1, Glucose 79, Calcium 9.1, Total Bilirubin 0.50, AST 76 H, ALT 48, Alkaline Phosphatase 88, Total Protein 7.0, Albumin 2.9 L, Globulin 4.1, Albumin/Globulin Ratio 0.7 L Micro: Microbiology 06/10/22 07:00 Sputum, Expectorated/Coughed Gram Stain - Final 06/10/22 07:00 Sputum, Expectorated/Coughed Respiratory Culture - Final Meth. resistant Staph. aureus 06/09/22 12:45 Mucosa - Nasopharyngeal Respiratory Panel (PCR) - Final 06/09/22 11:15 Urine, Random Legionella Antigen - Final 06/09/22 11:34 Urine, Random Streptococcus pneumoniae Antigen (M - Final 06/09/22 06:25 Nasal Secretion SARS-CoV-2 Antigen (Rapid) - Final Physical Exam Const alert, oriented x3, no apparent distress and healthy appearing General Appearance: cooperative; Negative for combative or lethargic Orientation / Consciousness: awake Exam Limitations: no limitations HEENT Head and Scalp: normocephalic and atraumatic Eyes EOMs intact bilaterally General Eye: normal appearance of both eyes Neck full ROM Resp normal respiratory effort and no use of accessory muscles Effort and Inspection: Negative for labored, stridor or audible wheezes Cardio regular rate and regular rhythm Back/Spine Cervical Spine: cervical ROM normal Extremity full ROM and no clubbing, cyanosis or edema Skin no rashes or lesions noted and no wounds Neuro oriented x3, CN's II-XII intact bilaterally, no focal motor deficits and no sensory deficits noted Psych thought process normal, cooperative, affect normal, speech normal and activity/motor behavior normal Assessment & Plan Assessment/Plan (1) Carotid stenosis with cerebral infarction less than 8 weeks ago: PLAN: -has chosen medical tx over surgery at this time, which is appropriate given no antiplatelet agents when he had CVA -will maintain on ASA, Plavix, cont statin -will have him follow up in office next week to establish imaging schedule -ok to DC Charges/Coding Visit Charges Inpatient E&M: 42285 Subs Hosp L2
[2022-06-13] MEDS: Aspirin 81 MG TAB.CHEW PO (10:02)
[2022-06-13] MEDS: Mupirocin Ointment 22gm Tube 1 APPLIC NASAL (10:03)
[2022-06-13] MEDS: Multivitamins,Therapeutic Tablet 1 TABLET PO (10:03)
[2022-06-13] MEDS: Carvedilol 12.5 MG Tablet PO (10:04)
[2022-06-13] MEDS: DULoxetine Hcl 60 MG Capsule PO (10:04)
[2022-06-13] MEDS: Enoxaparin 40 MG/0.4 ML Syringe SC (10:05)
[2022-06-13] MEDS: Tolterodine Tartrate 2 MG CAP.SA PO (10:05)
[2022-06-13] MEDS: Pramipexole Di-HCl 0.125 MG Tablet PO (10:06)
[2022-06-13] MEDS: guaiFENesin 1,200 MG Tablet 1200 MG PO (10:06)
[2022-06-13] MEDS: Pantoprazole Sodium 40 MG Tablet PO (10:07)
[2022-06-13] MEDS: buPROPion (SR) 150 MG Tablet.SA PO (10:07)
[2022-06-13] MEDS: Clopidogrel Bisulfate 75 MG Tablet PO (10:07)
[2022-06-13] MEDS: Lisinopril 20 MG Tablet PO (10:07)
--- NOTE | 2022-06-13 10:35 | DS.PCM_ITS ---
Providers Date of Admission: 06/09/22 Date of Discharge: 06/13/22 Primary Care Physician: Felicia Primary Care Phys Consultations 06/10/22 15:03 Consult: Vascular Surgery Routine Consulting Provider: Mehdi Shukla Reason for Consult: severe R carotid stenosis in setting of stroke EMERGENT Consult: No MD Notified: Yes Date Notified: 06/10/22 Time Notified: 15:03 Method of Notification: Text Reason For Visit: STROKE / PNA Diagnosis Discharge Diagnosis (1) Carotid stenosis with cerebral infarction less than 8 weeks ago: Status: Acute Medications at Discharge Home Medications ropinirole 0.25 mg tablet 0.25 mg PO BID restless leg syndrome 08/17/16 fluticasone propionate 50 mcg/actuation nasal spray,suspension (Flonase Allergy Relief) 2 spray intranasal DAILY PRN PRN Sinus Congestion 02/14/18 bupropion HCl 150 mg tablet,12 hr sustained-release 150 mg PO BID DEPRESSION 03/21/20 duloxetine 60 mg capsule,delayed release 60 mg PO DAILY DEPRESSION 03/21/20 omeprazole 40 mg capsule,delayed release 40 mg PO BID GERD 03/21/20 levothyroxine 75 mcg tablet 225 mcg PO DAILY@0600 thyroid 04/21/20 multivitamin with folic acid 400 mcg tablet 1 tab PO DAILYCM 05/07/20 tolterodine 2 mg capsule,extended release 24 hr 2 mg PO DAILY ##1 05/07/20 insulin regular hum U-500 conc 500 unit/mL(3 mL) subcut pen 30 units subcut TID 11/02/20 dulaglutide 1.5 mg/0.5 mL subcutaneous pen injector (Trulicity) mg subcut QWEEK 06/09/22 ergocalciferol (vitamin D2) 1,250 mcg (50,000 unit) capsule (Vitamin D2) 1 PO QWEEK 06/09/22 albuterol sulfate 90 mcg/actuation aerosol inhaler (ProAir HFA) 2 inh inhalation Q4H PRN shortness of breath or wheezing #6.7 grams 06/13/22 amoxicillin 875 mg-potassium clavulanate 125 mg tablet 1 tab PO BID 3 days #6 tabs 06/13/22 aspirin 81 mg chewable tablet 81 mg PO BREAKFAST 30 days #30 tabs 06/13/22 atorvastatin 80 mg tablet 80 mg PO QHS 30 days #30 tabs 06/13/22 carvedilol 12.5 mg tablet 12.5 mg PO BID 30 days #60 tabs 06/13/22 clopidogrel 75 mg tablet 75 mg PO DAILY 30 days #30 tabs 06/13/22 guaifenesin 1,200 mg tablet, extended release 12 hr (Mucus Relief ER) 1,200 mg PO BID 10 days #20 tabs 06/13/22 insulin glargine-yfgn 100 unit/mL (3 mL) subcutaneous pen 80 unit (0.8 mL) subcut BID 4 weeks #44.8 mL 06/13/22 lisinopril 10 mg-hydrochlorothiazide 12.5 mg tablet 1 tab PO DAILY 30 days #30 tabs 06/13/22 mupirocin 2 % topical ointment 1 applic NASAL BID 5 days #15 grams 06/13/22 Hospital Course Operations None Procedures 2-D Echocardiogram, EKG and Stress test Summary of Care Provided Minutes Spent on Discharge: 45 Hospital Course: ATTENDING PHYSICIAN DISCHARGE NOTE: Discharge Diagnoses: #1.? Acute left-sided facial droop and left upper extremity weakness secondary t o multiple scattered subacute shower microembolic ischemic infarctions in the right cerebellar hemisphere complicated by bilateral carotid stenoses, worse right-sided carotid stenosis in the setting of a right-sided stroke #2.? Bilateral basilar pneumonia, concern for aspiration pneumonia especially given acute presentation with initial hypoxia presentation #3.? 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 Hypertension, Uncontrolled #5.? Hyperlipidemia #6.? Chronic Kidney Disease Stage IIIb #7.? Hypothyroidism #8.? Anxiety and depression #9.? Morbid Obesity #10.? Restless leg syndrome #11.? GERD #12.? CECILE Discharge Summary: The patient is a 66 y/o M w/ PMHx: History of EtOH abuse in recover, Diabetes mellitus type II, HTN, HLD, Anxiety and Depression, CKD stage IIIb, Hx Polystance abuse, Former tobacco use, GERD, COPD, CECILE on BIPAP q HS, Hypothyroidism, Morbid Obesity who presented to the [facility] ED on 06/09/22 with history of onset left-sided facial droop and left upper extremity weakness with decreased sensation to the extremity with onset of symptoms approximately 1600 the day prior with ED presentation specifically because of mildly worsening dyspnea and reported productive cough of clear to white sputum which is new as well as a headache with low-grade temperatures. ED evaluation included CT of the brain with no acute intracranial abnormality at that time, follow-up CT head and neck with a high-grade stenosis right distal M1 segment bifurcation with high- grade stenosis posterior trunk right M2 segment and proximal occlusion anterior trunk right M2 segment with additionally occluded M3 segments of the right MCA, high-grade stenosis right anterior pericallosal artery, high-grade stenosis right distal common carotid artery bifurcation extending to the right carotid bulb, at least 50% stenosis left common carotid artery bifurcation.? Given timing patient was not tPA candidate.? Patient admitted to PCU, maintained on se rial NIH stroke scale assessments, PT/OT/case management/speech therapy/nutrition consulted per protocol.? MRI of the brain obtained with noted multiple scattered subacute shower and microembolic ischemic infarct in the right cerebral hemisphere.? Carotid ultrasound follow-up obtained with noted sev ere 6 greater than 70% stenosis right extracranial internal carotid and mild less than 50% stenosis left extracranial internal carotid with patent antegrade vertebrals bilaterally.? Echo obtained with noted grossly normal LV size, wall motion and systolic function, EF 55%, moderate concentric LVH, mildly LA enlarged LA, diastolic function indeterminate.? Hemoglobin A1c 7.0%.? Cholesterol with total 167, LDL 96, HDL 34, triglycerides 185, TSH 0.60.? Patient maintained on aspirin, Plavix, high intensity statin.? Vascular surgery consulted and following and patient is still deciding whether or not he would like to have vascular intervention or continue only medical therapy.? Of note patient did undergo preoperative cardiac stress testing for potential vascular intervention and this was noted to be negative for inducible ischemia.? Of note patient has continued to refuse telemetry thus unclear if going in and out of atrial fibrillation especially given MRI findings. CXR in the ED w/ suspected bilateral basilar infiltrates and possible pneumonia, stable cardiomegaly.? Legionella and streptococcal antigen negative.? Rapid COVID antigen negative.? Respiratory full viral panel negative.? Sputum culture preliminary with rare staph aureus with sensitivities pending.? Patient currently maintained on IV Unasyn, clinically improving, will plan to continue a total of 7 days of antibiotic therapy with transition at discharge to augmentin to complete regimen. During admission, continued on reduced dose to Levemir 80 units as patient did have hypoglycemic events during presentation although suspect this is likely secondary to diet alterations in the hospital setting, ADA diet, continue speech evaluations given concerns for aspiration, also continued his home U500 regimen units 3 times daily, accu checks w/ ISS.?Hemoglobin A1c 7.0%. Nutrition consulted and followed given acute presentation. Patient BP above goal and started on coreg, combination lisinopril-HCTZ regimen with recommended continued alteration as needed achieve to goal. Discharge Time: > 35 Minutes DAY OF DISCHARGE PROGRESS NOTE: Subjective: Patient without acute event overnight per self and nursing report. Patient denies fever, chills, nausea, emesis, abdominal pain, chest pain or dyspnea. Patient was initially reticent to stay and wanted outpatient vascular surgery follow-up but changed his mind initially as had been offered by Vascular inpatient intervention later in the week. On 06/13/22 AM he again changed his mind and requested discharge to home with planned follow-up with Vascular on Wednesday. Therapies had evaluated with no aggressive discharge therapy needs. Reviewed all the aggressive plans of care as far as medications, need to continued antiplt therapy, statin and new BP regimen with continued close BS assessments for further insulin regimen changes. Patient agreeable to discharge to home. Patient will be discharged with follow-up with primary care physician, vascular surgery as well as neurology. Objective: T97.8, heart rate 64, BP 167/76, respiratory rate 18, 100% on CPAP. Physical Examination: General: awake, alert, oriented x 3 and cooperative, laying in the PCU bed, lengthy discussions undertaken, no distress. Skin: normal color, turgor, no icterus, cyanosis. HEENT: AT/NC, EOMI, PERRLA, MMM. Lungs: Diminished BS, > bases, appropriate effort, mildly increased RR, no rale s, ronchi or wheezing; Heart: Currently Regular rate and rhythm; no gallop, rub audible. Abdomen: soft, NTTP, ND, normal BS. Extremities: no cyanosis, clubbing, or edema s/p prior L BKA, stump well ap pearing. Neurological: patient awake, alert, oriented x 3; cognitive function appears intact upon questioning, reports understanding plan of care and concerns; pupils equally reactive to light and accomodation; cranial nerves grossly normal except ongoing mild residual L sided facial droop, improves with smile, moving all 4 extremities, prior pronator drift reported prior remains resolved, normal speech pattern. Psychiatric: affect appears normal, no acute evidence of depressive or anxiety feelings. Assessment and Plan: Please see hospital summary above. Weight / BMI Weight Weight: 388 lb 0.217 oz Body Mass Index (BMI) 55.6 ABG / Lab / Microbiology Data Result Diagrams: 06/13/22 06:10 06/13/22 06:10 Laboratory: Laboratory Results - last 24 hr 06/12/22 11:02: POC Glucose 124 H 06/12/22 13:09: POC Glucose 155 H 06/12/22 16:20: POC Glucose 163 H 06/12/22 21:39: POC Glucose 147 H 06/13/22 06:10: WBC 11.7 H, RBC 5.48, Hgb 15.2, Hct 46.9, MCV 85.6, MCH 27.7, MCHC 32.4, RDW Std Deviation 49.1 H, RDW Coeff of Jose 15.7 H, Plt Count 279, MPV 10.1, Immature Gran % (Auto) 0.600, Neut % (Auto) 60.0, Lymph % (Auto) 24.5, [place] % (Auto) 9.6, Eos % (Auto) 4.4, Baso % (Auto) 0.9, Absolute Neuts (auto) 7.0, Absolute Lymphs (auto) 2.86, Nucleated RBC % 0 06/13/22 06:10: Sodium 139, Potassium 3.8, Chloride 107, Carbon Dioxide 25.0, Anion Gap 7, BUN 25 H, Creatinine 1.46 H, Estim Creat Clear Calc 52.78, Est GFR (MDRD) Af Amer 62, Est GFR (MDRD) Non-Af 52 L, BUN/Creatinine Ratio 17.1, Glucose 79, Calcium 9.1, Total Bilirubin 0.50, AST 76 H, ALT 48, Alkaline Phosphatase 88, Total Protein 7.0, Albumin 2.9 L, Globulin 4.1, Albumin/Globulin Ratio 0.7 L Microbiology: Microbiology 06/10/22 07:00 Sputum, Expectorated/Coughed Gram Stain - Final 06/10/22 07:00 Sputum, Expectorated/Coughed Respiratory Culture - Final Meth. resistant Staph. aureus 06/09/22 12:45 Mucosa - Nasopharyngeal Respiratory Panel (PCR) - Final 06/09/22 11:15 Urine, Random Legionella Antigen - Final 06/09/22 11:34 Urine, Random Streptococcus pneumoniae Antigen (M - Final 06/09/22 06:25 Nasal Secretion SARS-CoV-2 Antigen (Rapid) - Final Meaningful Use Info Meaningful Use Diagnoses (Choose all that apply): Ischemic CVA CVA Therapy Assessed for PT,OT and/or ST?: Yes Ischemic Stroke Antithrombotic order at d/c?: Yes Dx of Atrial fib/flutter?: No Anticoagulant at discharge?: No Reason anticoagulant not ordered: Treatment not Indicated Statins at discharge?: Yes Primary Dx Acute Ischemic CVA?: Yes IV tPA ordered during stay?: No Reason IV t-PA not ordered: Treatment not Indicated Discharge Plan Admission Admit Date/Time: 06/09/22 07:31 Primary Reason for Your Visit: Acute R sided cerebellar CVA, R Carotid stenosis, BL PNA Attending Provider: Anne Castaneda Primary Care Provider: Care Physician,No Primary Consulting Providers: Mehdi Shukla ; Nafisa Garza Instructions Patient Instructions: Dysarthria: Improving Speech, Treating Pneumonia, Carotid Artery Problems: Stroke, Discharge Instructions for Stroke, Risk Factors for Stroke, Pneumonia Additional Instructions / Restrictions: DISCHARGE REVIEW: #1.? Acute left-sided facial droop and left upper extremity weakness secondary to multiple scattered subacute shower microembolic ischemic infarctions in the right cerebellar hemisphere complicated by bilateral carotid stenoses, worse right-sided carotid stenosis in the setting of a right-sided stroke: CT of the brain with no acute intracranial abnormality at that time, follow-up CT head and neck with a high-grade stenosis right distal M1 segment bifurcation with high-grade stenosis posterior trunk right M2 segment and proximal occlusion anterior trunk right M2 segment with additionally occluded M3 segments of the right MCA, high-grade stenosis right anterior pericallosal artery, high-grade stenosis right distal common carotid artery bifurcation extending to the right carotid bulb, at least 50% stenosis left common carotid artery bifurcation.? MRI of the brain obtained with noted multiple scattered subacute shower and microembolic ischemic infarct in the right cerebral hemisphere.? Carotid ultrasound follow-up obtained with noted severe 6 greater than 70% stenosis right extracranial internal carotid and mild less than 50% stenosis left extracranial internal carotid with patent antegrade vertebrals bilaterally.? Echo obtained with noted grossly normal LV size, wall motion and systolic func tion, EF 55%, moderate concentric LVH, mildly LA enlarged LA, diastolic function indeterminate.? Hemoglobin A1c 7.0%.? Cholesterol with total 167, LDL 96, HDL 34, triglycerides 185. TSH 0.60.? NEUROLOGY RECOMMENDATIONS: Advised strongly usage of athletic monitor but patient declined thus unclear if underlying cardiac arrhythmia. They advised patient maintain on aspirin, Plavix, high intensity statin, patient maintained on aspirin, Plavix, high intensity statin, BP regimen to achieve improved BP goal ideally with history <130/80s. Vascular surgery consulted and planned follow-up outpatient office visit on 06/17/22 to arrange intervention. Patient already underwent preoperative cardiac stress testing for potential vascular intervention and this was noted to be negative for inducible ischemia.? #2.? Bilateral basilar pneumonia, concern for aspiration pneumonia especially given acute presentation with initial hypoxia presentation: CXR in the ED w/ suspected bilateral basilar infiltrates and possible pneumonia, stable cardiomegaly.? Legionella and streptococcal antigen negative.? Rapid COVID antigen negative.? Respiratory full viral panel negative.? Sputum culture preliminary with rare staph aureus with sensitivities pending.? Patient maintained on IV Unasyn, clinically improving, will plan to continue a total of 7 days of antibiotic therapy with transition at discharge to augmentin given aspiration concerns. #3.? 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 Given your discharge to home with resumption of ideally appropriate ADA diet we recommend closely monitoring your blood sugars and notify your primary care if low for further regimen changes but at this time will start at least at your discharge with the reduced long-acting lantus 80 u BID. GIVEN YOUR NEW MEDICATIONS PLEASE PLAN TO HAVE FOLLOW-UP BASIC METABOLIC PANEL WITH YOUR PRIMARY CARE PHYSICIAN AT FOLLOW-UP AND NEEDED TO ASSURE ELECTROLYTE FUNCTIONS REMAIN APPROPRIATE. Discharge Orders/Prescriptions Prescriptions: New insulin glargine-yfgn 100 unit/mL (3 mL) Insulin Pen 80 unit subcut BID 28 Days Qty: 44.8 0RF Rx Instructions: Please continue to monitor BS, may need to readjust pending trend at home. atorvastatin 80 mg Tablet 80 mg PO QHS 30 Days Qty: 30 0RF carvedilol 12.5 mg Tablet 12.5 mg PO BID 30 Days Qty: 60 0RF clopidogrel 75 mg Tablet 75 mg PO DAILY 30 Days Qty: 30 0RF aspirin 81 mg Tablet,Chewable 81 mg PO BREAKFAST 30 Days Qty: 30 0RF mupirocin 2 % Ointment 1 applic NASAL BID 5 Days Qty: 15 0RF Protocol: *Topical Application Instructions APPLICATION INSTRUCTIONS: see above Mucus Relief ER 1,200 mg Tablet Extended Release 12hr 1,200 mg PO BID 10 Days Qty: 20 0RF amoxicillin-pot clavulanate 875-125 mg tablet 1 tab PO BID 3 Days Qty: 6 0RF albuterol sulfate [ProAir HFA] 90 mcg/actuation HFA aerosol inhaler 2 inh inhalation Q4H PRN (Reason: shortness of breath or wheezing) Qty: 6.7 0RF lisinopril-hydrochlorothiazide 10-12.5 mg tablet 1 tab PO DAILY 30 Days Qty: 30 0RF Continued fluticasone propionate [Flonase Allergy Relief] 50 mcg/actuation spray,suspension 2 spray INTRANASAL DAILY PRN PRN (Reason: Sinus Congestion) ropinirole 0.25 MG tablet 0.25 mg PO BID Label Comments: restless legs omeprazole 40 MG capsule,delayed release(DR/EC) 40 mg PO BID duloxetine 60 MG capsule,delayed release(DR/EC) 60 mg PO DAILY bupropion HCl 150 MG tablet sustained-release 12 hr 150 mg PO BID Label Comments: depression levothyroxine 75 MCG tablet 225 mcg PO DAILY@0600 Label Comments: thyroid multivitamin with folic acid 1 TABLET tablet 1 tab PO DAILYCM 0RF tolterodine 2 MG capsule,extended release 24hr 2 mg PO DAILY Qty: 1 0RF insulin regular hum U-500 conc 500 UNITS/ML insulin pen 30 units SC TID ergocalciferol (vitamin D2) [Vitamin D2] 1,250 mcg (50,000 unit) capsule 1 PO QWEEK Rx Instructions: Trulicity 1.5 mg/0.5 mL pen injector SUBCUT QWEEK Rx Instructions: Discontinued insulin detemir U-100 100 UNIT/ML solution 100 unit SQ BID Referrals / Follow Up: Mehdi Shukla MD [Med Staff - Active Staff] - (Follow-up planned on 06/17/22 with Vascular Surgery. His office will call you Wednesday with appointment time and details.) Cody Call MD [Non-Staff] - (Follow-up first open available visit for CVA follow-up. May see CLAIMS VICE PRESIDENT if appointment earlier.) Maico Jones MD [Med Staff - Pump House Operator] - (Follow-up within 2-3 days of hospital discharge to assure appropriate follow-up, review of complicated admission.) Disposition Disposition (needs filled in before D/C Order can be placed): Home, Self Care Charges/Coding Visit Charges Inpatient E&M: 82839 Disch Hosp
--- NOTE | 2022-06-13 10:44 | PCM.DC ---
Discharge Instructions Diet Discharge Diet: Low fat / Low cholesterol and 1800 Calorie Control Diet Activity Discharge Activity: - (Encourage routine regular activity and continue to follow fall precautions.) May resume sexual activity in: No Restrictions Weight Bearing Status: Weight bearing as tolerated Dressing / Incision Call your doctor if you observe: Fever of 101 or Higher, Numbness or Tingling, Inability to have a bowel movement, Shortness of breath, Chest pain, Increased palpitations (irregular heartbeat) and Uncontrolled pain Follow Up Care Test Results: Test results from this visit will be discussed in further detail at your follow-up appointment, if applicable. Discharge Plan Admission Admit Date/Time: 06/09/22 07:31 Primary Reason for Your Visit: Acute R sided cerebellar CVA, R Carotid stenosis, BL PNA Attending Provider: Anne Castaneda Primary Care Provider: Care Physician,No Primary Consulting Providers: Mehdi Shukla ; Nafisa Garza Instructions Patient Instructions: Dysarthria: Improving Speech, Treating Pneumonia, Carotid Artery Problems: Stroke, Discharge Instructions for Stroke, Risk Factors for Stroke, Pneumonia Additional Instructions / Restrictions: DISCHARGE REVIEW: #1.? Acute left-sided facial droop and left upper extremity weakness secondary to multiple scattered subacute shower microembolic ischemic infarctions in the right cerebellar hemisphere complicated by bilateral carotid stenoses, worse right-sided carotid stenosis in the setting of a right-sided stroke: CT of the brain with no acute intracranial abnormality at that time, follow-up CT head and neck with a high-grade stenosis right distal M1 segment bifurcation with high-grade stenosis posterior trunk right M2 segment and proximal occlusion anterior trunk right M2 segment with additionally occluded M3 segments of the right MCA, high-grade stenosis right anterior pericallosal artery, high-grade stenosis right distal common carotid artery bifurcation extending to the right carotid bulb, at least 50% stenosis left common carotid artery bifurcation.? MRI of the brain obtained with noted multiple scattered subacute shower and microembolic ischemic infarct in the right cerebral hemisphere.? Carotid ultrasound follow-up obtained with noted severe 6 greater than 70% stenosis right extracranial internal carotid and mild less than 50% stenosis left extracranial internal carotid with patent antegrade vertebrals bilaterally.? Echo obtained with noted grossly normal LV size, wall motion and systolic function, EF 55%, moderate concentric LVH, mildly LA enlarged LA, diastolic function indeterminate.? Hemoglobin A1c 7.0%.? Cholesterol with total 167, LDL 96, HDL 34, triglycerides 185. TSH 0.60.? NEUROLOGY RECOMMENDATIONS: Advised strongly usage of product support engineer but patient declined thus unclear if underlying cardiac arrhythmia. They advised patient maintain on aspirin, Plavix, high intensity statin, patient maintained on aspirin, Plavix, high intensity statin, BP regimen to achieve improved BP goal ideally with history <130/80s. Vascular surgery consulted and planned follow-up outpatient office visit on 06/17/22 to arrange intervention. Patient already underwent preoperative cardiac stress testing for potential vascular intervention and this was noted to be negative for inducible ischemia.? #2.? Bilateral basilar pneumonia, concern for aspiration pneumonia especially given acute presentation with initial hypoxia presentation: CXR in the ED w/ suspected bilateral basilar infiltrates and possible pneumonia, stable cardiomegaly.? Legionella and streptococcal antigen negative.? Rapid COVID antigen negative.? Respiratory full viral panel negative.? Sputum culture preliminary with rare staph aureus with sensitivities pending.? Patient maintained on IV Unasyn, clinically improving, will plan to continue a total of 7 days of antibiotic therapy with transition at discharge to augmentin given aspiration concerns. #3.? 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 Given your discharge to home with resumption of ideally appropriate ADA diet we recommend closely monitoring your blood sugars and notify your primary care if low for further regimen changes but at this time will start at least at your discharge with the reduced long-acting lantus 80 u BID. GIVEN YOUR NEW MEDICATIONS PLEASE PLAN TO HAVE FOLLOW-UP BASIC METABOLIC PANEL WITH YOUR PRIMARY CARE PHYSICIAN AT FOLLOW-UP AND NEEDED TO ASSURE ELECTROLYTE FUNCTIONS REMAIN APPROPRIATE. Discharge Orders/Prescriptions Prescriptions: New insulin glargine-yfgn 100 unit/mL (3 mL) Insulin Pen 80 unit subcut BID 28 Days Qty: 44.8 0RF Rx Instructions: Please continue to monitor BS, may need to readjust pending trend at home. atorvastatin 80 mg Tablet 80 mg PO QHS 30 Days Qty: 30 0RF carvedilol 12.5 mg Tablet 12.5 mg PO BID 30 Days Qty: 60 0RF clopidogrel 75 mg Tablet 75 mg PO DAILY 30 Days Qty: 30 0RF aspirin 81 mg Tablet,Chewable 81 mg PO BREAKFAST 30 Days Qty: 30 0RF mupirocin 2 % Ointment 1 applic NASAL BID 5 Days Qty: 15 0RF Protocol: *Topical Application Instructions APPLICATION INSTRUCTIONS: see above Mucus Relief ER 1,200 mg Tablet Extended Release 12hr 1,200 mg PO BID 10 Days Qty: 20 0RF amoxicillin-pot clavulanate 875-125 mg tablet 1 tab PO BID 3 Days Qty: 6 0RF albuterol sulfate [ProAir HFA] 90 mcg/actuation HFA aerosol inhaler 2 inh inhalation Q4H PRN (Reason: shortness of breath or wheezing) Qty: 6.7 0RF lisinopril-hydrochlorothiazide 10-12.5 mg tablet 1 tab PO DAILY 30 Days Qty: 30 0RF Continued fluticasone propionate [Flonase Allergy Relief] 50 mcg/actuation spray,suspension 2 spray INTRANASAL DAILY PRN PRN (Reason: Sinus Congestion) ropinirole 0.25 MG tablet 0.25 mg PO BID Label Comments: restless legs omeprazole 40 MG capsule,delayed release(DR/EC) 40 mg PO BID duloxetine 60 MG capsule,delayed release(DR/EC) 60 mg PO DAILY bupropion HCl 150 MG tablet sustained-release 12 hr 150 mg PO BID Label Comments: depression levothyroxine 75 MCG tablet 225 mcg PO DAILY@0600 Label Comments: thyroid multivitamin with folic acid 1 TABLET tablet 1 tab PO DAILYCM 0RF tolterodine 2 MG capsule,extended release 24hr 2 mg PO DAILY Qty: 1 0RF insulin regular hum U-500 conc 500 UNITS/ML insulin pen 30 units SC TID ergocalciferol (vitamin D2) [Vitamin D2] 1,250 mcg (50,000 unit) capsule 1 PO QWEEK Rx Instructions: Trulicity 1.5 mg/0.5 mL pen injector SUBCUT QWEEK Rx Instructions: Discontinued insulin detemir U-100 100 UNIT/ML solution 100 unit SQ BID Referrals / Follow Up: Mehdi Shukla MD [Med Staff - Active Staff] - (Follow-up planned on 06/17/22 with Vascular Surgery. His office will call you Wednesday with appointment time and details.) Cody Call MD [Non-Staff] - (Follow-up first open available visit for CVA follow-up. May see RESIDENTIAL SALES MANAGER if appointment earlier.) Maico Jones MD [Med Staff - Internal Grinding Machine Operator] - (Follow-up within 2-3 days of hospital discharge to assure appropriate follow-up, review of complicated admission.) Disposition Disposition (needs filled in before D/C Order can be placed): Home, Self Care
[2022-06-13] MEDS: hydroCHLOROthiazide 12.5mg 12.5 MG PO (11:31)
[2022-06-13 12:01] LABS: Bedside Glucose 131 mg/dL (74-106)
--- NOTE | 2022-06-13 15:18 | CASEMGMT ---
ROCKY MCGARRY Follow-up: Pt to be discharged on this date to return home. Discussed with Dr. Castaneda concerns for pt's ability to manage at home. Pt agreeable to home health fpc visits. Provided patient with a list of home health agencies including quality and resource data consistent with his medical needs, in network with his insurance and geographic area. Pt states he will review. Unable to set-up HH on this date d/t weekend. Will follow-up with pt on Wednesday regarding his choice in providers and send referrals. Reviewed O2 flow into CPAP, no documentation of hypoxia on RA identified. Reviewed with respiratory therapy reason for bleed in of O2, reason not identified. Nursing monitored pt on cpap without O2 bleed in and sleeping. Reports pt to not be hypoxic. Dr. Castaneda notified and pt to follow-up with PCP for further testing as an outpt. Martín Byrne RN CM
--- NOTE | 2022-06-15 11:30 | CASEMGMT ---
ROCKY MCGARRY follow-up: This RN CM contacted pt via phone in follow-up for home health. Pt states he has the list but has not reviewed for his choice in provider. Pt does not want to review at this time. Explained to pt need to obtain a provider given he was discharged on Wednesday. Pt agreeable to this RN MALGORZATA contacting pt at 1300 this afternoon to discuss. This RN MALGORZATA contacted pt's Direction Home CM Kristina Suh who states she has called pt this AM and will be visiting pt in his home tomorrow, June 16. Discharge summary and instructions faxed to Kristina for ongoing reinforcement of instructions. Martín Byrne RN CM
--- NOTE | 2022-06-15 13:28 | CASEMGMT ---
ROCKY MCGARRY Follow-up: Contacted pt via phone and reviewed in-network home health providers. Pt's choices are [facility] (1st), [facility] (2nd), and [facility] (3rd). Will send referrals. Martín Byrne RN CM
--- NOTE | 2022-06-15 13:50 | CASEMGMT ---
Addendum entered by Ashlyn Christianson 06/15/22 14:34: Ashlyn thorpe certified ophthalmic assistant called [facility] for an update. Since patients insurance us a dual benefit. Referral had to be sent to another intake for review. Will keep following up. Ashlyn Christianson Discharge Simplex Printer Installer Original Note: Discharge Simplex Printer Installer Ashlyn rios reached out to patients first choice [facility]. [facility] does not have skilled nurses for [place] at this time. Ashlyn called patients second choice [facility] and that home health does not service the area. Ashlyn called [facility] and faxed over referral. Will follow up. Plan: [facility], Waiting Acceptance. Ashlyn Christianson Discharge Simplex Printer Installer
--- NOTE | 2022-06-15 14:58 | CASEMGMT ---
Discharge Wood Cutter Ashlyn thorpe porcelain buildup assistant received a call from Kathi at [facility]. [facility] can accept patient for nursing. Ashlyn let Kathi know patient has [facility] as PCP. Kathi will follow up with patient. Plan: [facility] Ashlyn Christianson Discharge Wood Cutter
--- NOTE | 2022-06-15 15:03 | CASEMGMT ---
ROCKY MCGARRY Follow-up: Notified by CHAS Goldberg Iron Erector that pt has been accepted by [facility] pending verification of primary physician. This ROCKY MCGARRY contacted pt via phone. Pt states his primary care is through the [facility] and he sees Noemí Brantley NP. Informed pt that [place] [facility] has accepted him and will be in contact with him regarding a visit. Pt remains agreeable. Martín Byrne RN CM
== END 2022-06-13 15:58 | disposition home health service (06) | DRG 64 ==
LOC: ED 07:20 → PCU 08:36
PROVIDERS: Admitting Provider Internal Medicine; Emergency Provider Emergency Medicine; PCP Nurse Practitioner Family; Visit Provider Family Medicine
DX: I63.231 Cerebral infarction due to unspecified occlusion or stenosis of right carotid arteries (principal); J69.0 Pneumonitis due to inhalation of food and vomit; Z68.43 Body mass index [BMI] 50.0-59.9, adult; I27.23 Pulmonary hypertension due to lung diseases and hypoxia; E11.22 Type 2 diabetes mellitus with diabetic chronic kidney disease; B95.62 Methicillin resistant Staphylococcus aureus infection as the cause of diseases classified elsewhere; I48.0 Paroxysmal atrial fibrillation; G25.81 Restless legs syndrome; E11.42 Type 2 diabetes mellitus with diabetic polyneuropathy; E66.01 Morbid (severe) obesity due to excess calories; N18.32 Chronic kidney disease, stage 3b; Z79.4 Long term (current) use of insulin; Z89.512 Acquired absence of left leg below knee; G83.24 Monoplegia of upper limb affecting left nondominant side; J44.9 Chronic obstructive pulmonary disease, unspecified; F10.21 Alcohol dependence, in remission; I12.9 Hypertensive chronic kidney disease with stage 1 through stage 4 chronic kidney disease, or unspecified chronic kidney disease; K21.9 Gastro-esophageal reflux disease without esophagitis; E03.9 Hypothyroidism, unspecified; G47.33 Obstructive sleep apnea (adult) (pediatric); I25.10 Atherosclerotic heart disease of native coronary artery without angina pectoris; E78.5 Hyperlipidemia, unspecified; F41.9 Anxiety disorder, unspecified; F32.A Depression, unspecified; R29.702 NIHSS score 2; R29.703 NIHSS score 3; R29.810 Facial weakness; R09.02 Hypoxemia; R32 Unspecified urinary incontinence; Z53.20 Procedure and treatment not carried out because of patient's decision for unspecified reasons; Z60.2 Problems related to living alone; Z79.02 Long term (current) use of antithrombotics/antiplatelets; Z79.82 Long term (current) use of aspirin; Z79.899 Other long term (current) drug therapy; Z87.891 Personal history of nicotine dependence
CPT/HCPCS: 36415; 70450; 70496; 70498; 70551; 71045; 78452; 80048; 80053; 80061; 82962; 83036; 83735; 83880; 84100; 84443; 84484; 85025; 85610; 85730; 87070; 87077; 87186; 87205; 87449; 87633; 87641; 87811; 92507; 92523; 92526; 93005; 93017; 93306; 93880; 94002; 94003; 94640; 94660; 94762; 97116; 97162; 97166; 97530; 97802; 99251; 99285; A9500; Q9957; Q9967; A4216; G0463; J0295; J0696; J2785

== ENCOUNTER 2022-10-05 14:42 | Inpatient (IN) | payer MEDICARE, MEDICAID, SELFPAY ==
[2022-10-05] VITALS (7 sets, daily range): BP systolic 134–154; BP diastolic 70–100; PULSE 68–88; RESP 15–19; TEMP 36.4–37.4; O2SAT 95–99; BMI 50.8; BMI 48.9
--- NOTE | 2022-10-05 15:25 | ED.VIS.LOWEX ---
HPI History of Present Illness Chief Complaint: Wound Narrative Narrative: 66-year-old male presenting with diabetic foot wound. He states on his right foot on the medial aspect. He states this has been present for about a month. Patient states that he has a visiting physician that comes to the house and he has been changing the dressing. He states the wound is not healing. He has been keeping it clean and applying dressings. He states he has previously seen Dr. Quiles, however he has not made an appointment for follow-up with them in the last month. He states he has been dealing with a recent stroke and has been on a lot of medications for this. He states he has not been able to make follow-up yet. Patient states he is not ill feeling. He does state that he hit his leg about a month ago in the medial calf which caused some bruising and swelling which slowly descended down to his foot. He states that he had a callus here on the medial aspect of the foot and from the swelling the wound opened. He denies any trauma to the wound or the area of the foot. [facility] Medical History Acute CVA (cerebrovascular accident) Alcohol abuse Alcoholism in recovery Anxiety Anxiety and depression Arthritis Below knee amputation BiPAP (biphasic positive airway pressure) dependence CAD (coronary artery disease) Carotid stenosis with cerebral infarction less than 8 weeks ago Charcot's joint of foot due to diabetes Chronic renal failure, stage 3 (moderate) COPD (chronic obstructive pulmonary disease) Depression Diabetes type 2, uncontrolled Diabetic foot ulcer associated with type 2 diabetes mellitus Diabetic neuropathy associated with type 2 diabetes mellitus Drug abuse Enlarged RV (right ventricle) Former smoker GERD (gastroesophageal reflux disease) GI problem Grade I diastolic dysfunction H/O transfusion of whole blood Hallux limitus of right foot Hearing problem High triglycerides HTN (hypertension) Hyperlipidemia Hypothyroidism Kidney disease New left bundle branch block Non-compliance CECILE treated with BiPAP Osteoarthritis Osteoporosis Physical debility Pneumonia prostate problems Pulmonary hypertension Recurrent infections Sleep apnea Super obesity Thyroid disorder Venous stasis dermatitis Vision problems Vitamin deficiency Home Medications ropinirole 0.25 mg tablet 0.25 mg PO BID restless leg syndrome 08/17/16 [History Last Taken 03/20/20] fluticasone propionate 50 mcg/actuation nasal spray,suspension (Flonase Allergy Relief) 2 spray intranasal DAILY PRN PRN Sinus Congestion 02/14/18 [History Last Taken Unknown] bupropion HCl 150 mg tablet,12 hr sustained-release 150 mg PO BID DEPRESSION 03/21/20 [History Last Taken 03/21/20] duloxetine 60 mg capsule,delayed release 60 mg PO DAILY DEPRESSION 03/21/20 [History Last Taken 03/21/20] omeprazole 40 mg capsule,delayed release 40 mg PO BID GERD 03/21/20 [History Last Taken 03/20/20] levothyroxine 75 mcg tablet 225 mcg PO DAILY@0600 thyroid 04/21/20 [History Last Taken Unknown] multivitamin with folic acid 400 mcg tablet 1 tab PO DAILYCM 05/07/20 [Rx Last Taken Unknown] tolterodine 2 mg capsule,extended release 24 hr 2 mg PO DAILY ##1 05/07/20 [Rx Last Taken Unknown] insulin regular hum U-500 conc 500 unit/mL(3 mL) subcut pen 30 units subcut TID 11/02/20 [History Last Taken Unknown] dulaglutide 1.5 mg/0.5 mL subcutaneous pen injector (Trulicity) mg subcut QWEEK 06/09/22 [History Last Taken Unknown] ergocalciferol (vitamin D2) 1,250 mcg (50,000 unit) capsule (Vitamin D2) 1 PO QWEEK 06/09/22 [History Last Taken Unknown] albuterol sulfate 90 mcg/actuation aerosol inhaler (ProAir HFA) 2 inh inhalation Q4H PRN shortness of breath or wheezing #6.7 grams 06/13/22 [Rx Last Taken Unknown] amoxicillin 875 mg-potassium clavulanate 125 mg tablet 1 tab PO BID 3 days #6 tabs 06/13/22 [Rx Last Taken Unknown] aspirin 81 mg chewable tablet 81 mg PO BREAKFAST 30 days #30 tabs 06/13/22 [Rx Last Taken Unknown] atorvastatin 80 mg tablet 80 mg PO QHS 30 days #30 tabs 06/13/22 [Rx Last Taken Unknown] carvedilol 12.5 mg tablet 12.5 mg PO BID 30 days #60 tabs 06/13/22 [Rx Last Taken Unknown] clopidogrel 75 mg tablet 75 mg PO DAILY 30 days #30 tabs 06/13/22 [Rx Last Taken Unknown] guaifenesin 1,200 mg tablet, extended release 12 hr (Mucus Relief ER) 1,200 mg PO BID 10 days #20 tabs 06/13/22 [Rx Last Taken Unknown] insulin glargine-yfgn 100 unit/mL (3 mL) subcutaneous pen 80 unit (0.8 mL) subcut BID 4 weeks #44.8 mL 06/13/22 [Rx Last Taken Unknown] lisinopril 10 mg-hydrochlorothiazide 12.5 mg tablet 1 tab PO DAILY 30 days #30 tabs 06/13/22 [Rx Last Taken Unknown] mupirocin 2 % topical ointment 1 applic NASAL BID 5 days #15 grams 06/13/22 [Rx Last Taken Unknown] Allergy/AdvReac Type Severity Reaction Status Date / Time No Known Allergies Allergy Verified 10/05/22 14:48 Family History Mother Arthritis Diabetes Hypertension High cholesterol Osteoporosis Sister Breast cancer Cancer High cholesterol Brother Lung cancer High cholesterol Father Hypertension High cholesterol Surgical History Partial nontraumatic amputation of left foot Social History household members: none housing: apartment Smoking Status: Unknown if ever smoked alcohol intake: former substance use type: does not use ROS ROS ED Constitutional Constitutional ED: Denies chills or fever(s) Eyes Eyes: Denies change in vision or diplopia ENT ENT ED: Denies rhinorrhea or sore throat Cardiovascular Cardiovascular: Denies chest pain or palpitations Respiratory/Chest Respiratory/Chest: Denies cough or dyspnea Gastrointestinal Gastrointestinal: Denies abdominal pain, nausea or vomiting Genitourinary Genitourinary ED: Denies dysuria or hematuria Musculoskeletal Musculoskeletal: Denies arthralgias Integumentary Reports other Details: Diabetic foot wound on the right Neurologic Neurologic: Denies headache(s) or paresthesias Psychiatric Psychiatric: Denies anxiety or depression EXAM Physical Exam Const Vital Signs: 10/05/22 14:43 10/05/22 14:45 10/05/22 14:45 Temperature 97.6 F L 97.6 F L 97.6 F L Temperature Source Temporal Temporal Temporal Pulse Rate 80 80 80 Respiratory Rate 17 17 17 Blood Pressure 137/70 H 137/70 H Blood Pressure Mean 92 92 Pulse Ox 97 98 96 Oxygen Delivery Method Room Air Room Air Room Air 10/05/22 16:02 10/05/22 17:23 10/05/22 17:23 Temperature 98.4 F 98.7 F Temperature Source Temporal Temporal Pulse Rate 75 88 88 Respiratory Rate 15 19 H 17 Blood Pressure 134/74 H 144/88 H 144/78 H Blood Pressure Mean 94 106 100 Pulse Ox 99 97 97 Oxygen Delivery Method Room Air Room Air Room Air Positive well nourished HEENT Reports moist mucous membranes Eyes PERRL Resp normal respiratory effort Auscultation: Negative for rales, rhonchi or wheezes Cardio regular rate and regular rhythm GI non-tender Neuro oriented x3 and CN's II-XII intact bilaterally Sensorium / Orientation: alert Skin Skin Narrative: Large ulceration on the medial aspect of the right on the medial aspect of the first metatarsal. There is drainage from this. It is purulent. There is surrounding erythema. There is no lymphangitic streaking. MDM MDM MDM Narrative Medical decision making narrative: Patient presented with a large wound on the medial aspect of his right foot. This is been present for a month. I obtained blood work and his CBC shows a slight leukocytosis of 13.1. Otherwise the CBC is normal. Renal function electrolytes appear normal. Glucose is stable at 104. CRP elevated at 20.4 and ESR elevated at 77. X-ray of the right foot on my interpretation shows concern for osteomyelitis at the base of the first proximal phalanx. Radiologist interprets this and agrees. I spoke with Dr. Quiles who is on-call for podiatry and previously has been his wheel borer. He recommended admission with IV antibiotics. He would likely need debridement. Patient amenable to this. I spoke with the hospitalist for admission. Impression: 1. Right foot osteomyelitis 2. Cellulitis 3. Leukocytosis 4. History of peripheral neuropathy Lab Data Attestation: I reviewed the patient's lab results. Labs: Laboratory Results - last 24 hr 10/05/22 10/05/22 10/05/22 15:35 15:35 16:34 WBC 13.1 H RBC 4.66 Hgb 13.6 Hct 40.5 MCV 86.9 MCH 29.2 MCHC 33.6 RDW Std Deviation 47.3 H RDW Coeff of Jose 14.8 H Plt Count 325 MPV 10.2 Immature Gran % (Auto) 0.700 Neut % (Auto) 60.9 Lymph % (Auto) 24.1 [place] % (Auto) 7.9 Eos % (Auto) 5.7 H Baso % (Auto) 0.7 Absolute Neuts (auto) 8.0 H Absolute Lymphs (auto) 3.16 Nucleated RBC % 0 ESR 77 H Sodium 136 Potassium 4.4 Chloride 106 Carbon Dioxide 27.0 Anion Gap 3 L BUN 17 Creatinine 1.22 Estim Creat Clear Calc 63.16 Est GFR (MDRD) Af Amer 77 Est GFR (MDRD) Non-Af 63 BUN/Creatinine Ratio 13.9 Glucose 104 Calcium 9.6 C-React Prot Ext Range 20.40 H POC Glucose 102 Radiography Diagnostic Testing: Clinical Impression(s) from Imaging Studies Foot X-Ray 10/05/22 15:50 IMPRESSION: Suspect cellulitis with ulcer and osteomyelitis of the base of the first proximal phalanx. Electronically Signed: Kamron Maharaj MD at 16:20 EST , Discharge Plan Triage Chief Complaint: Wound Other Complaint: Cellulitis ED Provider: Artem Mcdaniels Dx/Rx/DC Orders Prescriptions: No Action fluticasone propionate [Flonase Allergy Relief] 50 mcg/actuation spray,suspension 2 spray INTRANASAL DAILY PRN PRN (Reason: Sinus Congestion) ropinirole 0.25 MG tablet 0.25 mg PO BID Label Comments: restless legs omeprazole 40 MG capsule,delayed release(DR/EC) 40 mg PO BID duloxetine 60 MG capsule,delayed release(DR/EC) 60 mg PO DAILY bupropion HCl 150 MG tablet sustained-release 12 hr 150 mg PO BID Label Comments: depression levothyroxine 75 MCG tablet 225 mcg PO DAILY@0600 Label Comments: thyroid multivitamin with folic acid 1 TABLET tablet 1 tab PO DAILYCM 0RF tolterodine 2 MG capsule,extended release 24hr 2 mg PO DAILY Qty: 1 0RF insulin regular hum U-500 conc 500 UNITS/ML insulin pen 30 units SC TID ergocalciferol (vitamin D2) [Vitamin D2] 1,250 mcg (50,000 unit) capsule 1 PO QWEEK Rx Instructions: Trulicity 1.5 mg/0.5 mL pen injector SUBCUT QWEEK Rx Instructions: insulin glargine-yfgn 100 unit/mL (3 mL) Insulin Pen 80 unit subcut BID 28 Days Qty: 44.8 0RF Rx Instructions: Please continue to monitor BS, may need to readjust pending trend at home. atorvastatin 80 mg Tablet 80 mg PO QHS 30 Days Qty: 30 0RF carvedilol 12.5 mg Tablet 12.5 mg PO BID 30 Days Qty: 60 0RF clopidogrel 75 mg Tablet 75 mg PO DAILY 30 Days Qty: 30 0RF aspirin 81 mg Tablet,Chewable 81 mg PO BREAKFAST 30 Days Qty: 30 0RF mupirocin 2 % Ointment 1 applic NASAL BID 5 Days Qty: 15 0RF Protocol: *Topical Application Instructions APPLICATION INSTRUCTIONS: see above Mucus Relief ER 1,200 mg Tablet Extended Release 12hr 1,200 mg PO BID 10 Days Qty: 20 0RF amoxicillin-pot clavulanate 875-125 mg tablet 1 tab PO BID 3 Days Qty: 6 0RF albuterol sulfate [ProAir HFA] 90 mcg/actuation HFA aerosol inhaler 2 inh inhalation Q4H PRN (Reason: shortness of breath or wheezing) Qty: 6.7 0RF lisinopril-hydrochlorothiazide 10-12.5 mg tablet 1 tab PO DAILY 30 Days Qty: 30 0RF Primary Care Provider: SARAH SCHAEFER Referrals: SARAH SCHAEFER, CHIEF LEGAL OFFICER-C [Primary Care Provider] -
[2022-10-05 15:43] LABS: Absolute Lymphocyte Count 3.16 X10^3/uL (0.83-4.51); Basophil# 0.09 X10^3/uL; Basophil% 0.7 % (0-1); Eosinophil# 0.75 X10^3/uL; Eosinophils% 5.7 % (0-5); Hematocrit 40.5 % (40-54); Hemoglobin 13.6 g/dL (13.0-16.5); Lymphocyte # 3.16 X10^3/ul (0.83-4.51); Lymphocyte % 24.1 % (19-41); Mean Corp Hgb Conc 33.6 g/dL (32-36); Mean Corpuscular Hgb 29.2 pg (27.0-32.0); Mean Corpuscular Volume 86.9 fL (80-94); Mean Platelet Vol. 10.2 fl (6.2-12.0); Monocyte# 1.03 X10^3/uL; Monocyte% 7.9 % (0-10); NRBC Flagged by Analyzer 0 % (0-5); Neutrophil # 7.97 X10^3/uL (2.7-7.7); Neutrophil % 60.9 % (47-70); Platelet Count 325 K/mm3 (150-450); RBC Distribution Width CV 14.8 % (11.6-14.6); RBC Distribution Width SD 47.3 fl (35.1-43.9); Red Blood Count 4.66 M/mm3 (4.6-6.2); White Blood Count 13.1 K/mm3 (4.4-11.0)
--- NOTE | 2022-10-05 15:50 | RAD_ITS ---
STUDY: X-RAY - RIGHT FOOT CLINICAL: Male, 66 years old. diabetic ulcer TECHNIQUE: 3 view(s) of the foot. COMPARISON: None. FINDINGS: Normal talus, calcaneus, and tarsal bones. Normal visualized subtalar, talonavicular, calcaneocuboid, tarsal and tarsometatarsal articulations. Normal metatarsi. Normal metatarsophalangeal joint of the great toe. Normal tibial and fibular sesamoid bones. Normal interphalangeal joint of the great toe. Normal phalanges of the great toe. Normal second through fifth metatarsophalangeal joints. Normal interphalangeal joints and phalanges of the lesser toes. Suspect soft tissue ulcer near the first metatarsophalangeal joint with subtle cortical destruction of the tibial aspect of the base of the first proximal phalanx worrisome for osteomyelitis. RAD/Foot min 3 Views IMPRESSION: Suspect cellulitis with ulcer and osteomyelitis of the base of the first proximal phalanx. Electronically Signed: Kamron Maharaj MD at 16:20 EST ,
[2022-10-05 15:53] LABS: Erythrocyte Sedimentation Rate 77 mm/hr (0-20)
[2022-10-05] MEDS: 0.9% Normal Saline 1,000 ML 999 ML IV (16:01)
[2022-10-05 16:02] LABS: Anion Gap 3 (5-15); BUN 17 mg/dL (7-18); BUN/Creat Ratio 13.9 RATIO (10-20); Calcium,Total 9.6 mg/dL (8.5-10.1); Chloride 106 mmol/L (98-107); Creatinine, Serum 1.22 mg/dL (0.70-1.30); EST Glomerular Filtration Rate 63 mL/min (>60); Est Glom Filt Rate - Afr Amer 77 mL/min (>60); Estimated Creatinine Clearance 63.16 ml/min; Glucose 104 mg/dL (74-106); Potassium 4.4 mmol/L (3.5-5.1); Sodium Level 136 mmol/L (136-145)
[2022-10-05 16:56] LABS: Bedside Glucose 102 mg/dL (74-106)
--- NOTE | 2022-10-05 18:09 | PCM.HP.STD ---
HPI - General General Date of Admission: 10/05/22 Date of Service: 10/05/22 Chief Complaint: Right foot ulcer - 2 weeks HPI Narrative ILIANA WANG, is a 66 M who presents with the above. He has past medical history of morbid obesity, type II DM, history of left below knee amputation. He stated that he has had a right foot ulcer that started from June 2022. It appeared to have healed until about 2 weeks ago when he noticed a blister at the first metatarsal region. The blister eventually burst, and the remaining wound started showing slough. He denied any fever or chills. He has had some discharge from the wound. He got concerned and decided to come to the emergency room. In the emergency room, his blood pressure is 137/70, heart rate 80, respiratory rate 17, temperature 97.6, oxygen sat 97% on room air. His RBC count 13.1, hemoglobin 13.6, platelet count 325, ESR 77, CRP 20.4 CMP is unremarkable except for BUN of 70, creatinine 1.22, which is at his baseline. X-ray of right foot shows suspected cellulitis with ulcer and osteomyelitis at the base of the first proximal phalanx. [facility] Medical History Acute CVA (cerebrovascular accident) Alcohol abuse Alcoholism in recovery Anxiety Anxiety and depression Arthritis Below knee amputation BiPAP (biphasic positive airway pressure) dependence CAD (coronary artery disease) Carotid stenosis with cerebral infarction less than 8 weeks ago Charcot's joint of foot due to diabetes Chronic renal failure, stage 3 (moderate) COPD (chronic obstructive pulmonary disease) Depression Diabetes type 2, uncontrolled Diabetic foot ulcer associated with type 2 diabetes mellitus Diabetic neuropathy associated with type 2 diabetes mellitus Drug abuse Enlarged RV (right ventricle) Former smoker GERD (gastroesophageal reflux disease) GI problem Grade I diastolic dysfunction H/O transfusion of whole blood Hallux limitus of right foot Hearing problem High triglycerides HTN (hypertension) Hyperlipidemia Hypothyroidism Kidney disease New left bundle branch block Non-compliance CECILE treated with BiPAP Osteoarthritis Osteoporosis Physical debility Pneumonia prostate problems Pulmonary hypertension Recurrent infections Sleep apnea Super obesity Thyroid disorder Venous stasis dermatitis Vision problems Vitamin deficiency Home Medications ropinirole 0.25 mg tablet 0.25 mg PO BID restless leg syndrome 08/17/16 [History Last Taken 10/05/22] fluticasone propionate 50 mcg/actuation nasal spray,suspension (Flonase Allergy Relief) 2 spray intranasal DAILY PRN PRN Sinus Congestion 02/14/18 [History Last Taken 10/05/22] bupropion HCl 150 mg tablet,12 hr sustained-release 150 mg PO BID DEPRESSION 03/21/20 [History Last Taken 10/05/22] duloxetine 60 mg capsule,delayed release 60 mg PO DAILY DEPRESSION 03/21/20 [History Last Taken 10/05/22] omeprazole 40 mg capsule,delayed release 40 mg PO BID GERD 03/21/20 [History Last Taken 10/05/22] levothyroxine 75 mcg tablet 225 mcg PO DAILY@0600 thyroid 04/21/20 [History Last Taken 10/05/22] insulin regular hum U-500 conc 500 unit/mL(3 mL) subcut pen 30 units subcut TID 11/02/20 [History Last Taken 10/04/22] dulaglutide 1.5 mg/0.5 mL subcutaneous pen injector (Trulicity) mg subcut QWEEK dm 06/09/22 [History Last Taken 10/01/22] ergocalciferol (vitamin D2) 1,250 mcg (50,000 unit) capsule (Vitamin D2) 1 PO QWEEK 06/09/22 [History Last Taken 10/01/22] albuterol sulfate 90 mcg/actuation aerosol inhaler (ProAir HFA) 2 inh inhalation Q4H PRN shortness of breath or wheezing #6.7 grams 06/13/22 [Rx Last Taken 10/04/22] carvedilol 12.5 mg tablet 12.5 mg PO BID 30 days #60 tabs 06/13/22 [Rx Last Taken Unknown] aspirin 81 mg chewable tablet 81 mg PO BREAKFAST heart health 10/05/22 [History Last Taken 10/05/22] atorvastatin 80 mg tablet 80 mg PO QHS cholesterol 10/05/22 [History Last Taken 10/04/22] clopidogrel 75 mg tablet 75 mg PO DAILY blood thinner 10/05/22 [History Last Taken Unknown] guaifenesin 1,200 mg tablet, extended release 12 hr (Mucus Relief ER) 1,200 mg PO QHS congesttion 10/05/22 [History Last Taken 10/04/22] insulin glargine-yfgn 100 unit/mL (3 mL) subcutaneous pen 60 unit subcut BID DM 10/05/22 [History Last Taken 10/05/22] lisinopril 10 mg-hydrochlorothiazide 12.5 mg tablet 1 tab PO DAILY bp 10/05/22 [History Last Taken Unknown] multivitamin with folic acid 400 mcg tablet 1 tablet PO DAILYCM supplement 10/05/22 [History Last Taken 10/05/22] mupirocin 2 % topical ointment 1 applic NASAL BID nose 10/05/22 [History Last Taken Unknown] tolterodine 2 mg capsule,extended release 24 hr 2 mg PO DAILY bladder 10/05/22 [History Last Taken 10/04/22] Allergy/AdvReac Type Severity Reaction Status Date / Time No Known Allergies Allergy Verified 10/05/22 14:48 Family History Mother Arthritis Diabetes Hypertension High cholesterol Osteoporosis Sister Breast cancer Cancer High cholesterol Brother Lung cancer High cholesterol Father Hypertension High cholesterol Surgical History Partial nontraumatic amputation of left foot Social History household members: none housing: apartment Smoking Status: Unknown if ever smoked alcohol intake: former substance use type: does not use ROS ROS Narrative Constitutional: Denies: Anorexia, Chills, Fever, Night Sweats, Weight Change Eyes: Denies: Blurred vision, Cataracts, Conjunctivae Inflammation, Pain, Redness, Vision Change HEENT: Denies: Difficulty Hearing, Difficulty Swallowing, Head Aches, Hearing Changes, Sinus Congestion, Sinus Drainage Cardiovascular: Denies: Chest Pain, Orthopnea, Palpitations Respiratory: Denies: Cough, Shortness of breath at rest, Sputum production Gastrointestinal: Denies: Abdominal Pain, Nausea, Vomiting Genitourinary: Denies: Dysuria Musculoskeletal: See HPI Skin: See HPI Neurological: Denies: Numbness, Tingling, Focal weakness Vital Signs Vital Signs Vital Signs: 10/05/22 14:43 10/05/22 14:45 10/05/22 14:45 Temperature 97.6 F L 97.6 F L 97.6 F L Temperature Source Temporal Temporal Temporal Pulse Rate 80 80 80 Respiratory Rate 17 17 17 Blood Pressure 137/70 H 137/70 H Blood Pressure Mean 92 92 Pulse Ox 97 98 96 Oxygen Delivery Method Room Air Room Air Room Air 10/05/22 16:02 10/05/22 17:23 10/05/22 17:23 Temperature 98.4 F 98.7 F Temperature Source Temporal Temporal Pulse Rate 75 88 88 Respiratory Rate 15 19 H 17 Blood Pressure 134/74 H 144/88 H 144/78 H Blood Pressure Mean 94 106 100 Pulse Ox 99 97 97 Oxygen Delivery Method Room Air Room Air Room Air Weight Weight: 160.572 kg Body Mass Index (BMI) 50.8 Physical Exam Narrative Physical exam: General: Alert, Oriented x3, Cooperative, morbidly obese HEENT: Atraumatic Oral: Moist Mucosa Neck: Supple Lungs: Diminished to auscultation Cardiovascular: HS I+II, regular, no murmurs Abdomen: Bowel Sounds Present, Soft, Non Tender Extremities: Left below-knee amputation, prosthesis in place, right lower leg pedal edema, +1, Skin: Ulcer on the first proximal phalanx/metatarsal joint, slough present Neurological: Grossly intact Psych/Mental Status: Appropriate Results Lab / Micro Data Result Diagrams: 10/05/22 15:35 10/05/22 15:35 Labs: Laboratory Results - last 24 hr 10/05/22 15:35: WBC 13.1 H, RBC 4.66, Hgb 13.6, Hct 40.5, MCV 86.9, MCH 29.2, MCHC 33.6, RDW Std Deviation 47.3 H, RDW Coeff of Jose 14.8 H, Plt Count 325, MPV 10.2, Immature Gran % (Auto) 0.700, Neut % (Auto) 60.9, Lymph % (Auto) 24.1, [place] % (Auto) 7.9, Eos % (Auto) 5.7 H, Baso % (Auto) 0.7, Absolute Neuts (auto) 8.0 H, Absolute Lymphs (auto) 3.16, Nucleated RBC % 0, ESR 77 H 10/05/22 15:35: Sodium 136, Potassium 4.4, Chloride 106, Carbon Dioxide 27.0, Anion Gap 3 L, BUN 17, Creatinine 1.22, Estim Creat Clear Calc 63.16, Est GFR (MDRD) Af Amer 77, Est GFR (MDRD) Non-Af 63, BUN/Creatinine Ratio 13.9, Glucose 104, Calcium 9.6, C-React Prot Ext Range 20.40 H 10/05/22 16:34: POC Glucose 102 Radiology Impression Foot X-Ray 10/05/22 15:50 IMPRESSION: Suspect cellulitis with ulcer and osteomyelitis of the base of the first proximal phalanx. Electronically Signed: Kamron Maharaj MD at 16:20 EST , Assessment & Plan Assessment/Plan (1) Osteomyelitis of ankle or foot, right, acute: PLAN: Plan 1. Acute infected right foot ulcer, probable osteomyelitis of the proximal phalanx of the first toe Patient with history of chronic ulcer Known history of diabetes complicated by polyneuropathy Will admit to MedSurg, podiatry and infectious disease consult Started on IV vancomycin and Zosyn MRI of the foot 2. Hypertension/hyperlipidemia, stable, Continue atorvastatin, Coreg, lisinopril/hydrochlorothiazide 3. Type 2 DM, insulin-dependent, continue home insulin regimen, Continue on insulin sliding scale blood glucose checks 4. Hypothyroidism, continue Synthroid 5. Anxiety/depression, continue duloxetine 6. DVT PPx-Lovenox SQ twice daily Charges/Coding Visit Charges Inpatient E&M: 15590 Init Hosp L3
--- NOTE | 2022-10-05 21:03 | NURSING ---
Pt reports having a TIA in June. Pt states he is unsure of his medication list. States a friend will bring in a med list in tomorrow.
[2022-10-05 21:35] LABS: Bedside Glucose 75 mg/dL (74-106)
[2022-10-05] MEDS: Pramipexole Di-HCl 0.125 MG Tablet PO (22:56)
[2022-10-05] MEDS: Atorvastatin Calcium 80 MG Tablet PO (22:56)
[2022-10-05] MEDS: Enoxaparin 40 MG/0.4 ML Syringe SC (22:56)
[2022-10-05] MEDS: Pantoprazole Sodium 40 MG Tablet PO (22:56)
[2022-10-05] MEDS: buPROPion (SR) 150 MG Tablet.SA PO (22:56)
--- NOTE | 2022-10-05 22:58 | CPS ---
talked to pt about hospital's bipap machine-does not like the full face mask. was offered a nasal mask but pt refused-4 l/m via nc set up in room-nurse aware
[2022-10-05] MEDS: Carvedilol 12.5 MG Tablet PO (23:04)
--- NOTE | 2022-10-06 01:39 | NURSING ---
16ml of zosyn charted as waste on DEC. Not visualized by this nurse, the medication did not come to the floor with the pt.
[2022-10-06 02:10] VITALS: BP 143/83; PULSE 77; RESP 18; TEMP 37.2; O2SAT 96
--- NOTE | 2022-10-06 03:03 | PCM.RX.CS ---
Consult Pharmacy has been consulted to manage selected antiobiotic: Vancomycin Type of Consult: New start Labs: Sodium 136 mmol/L (136-145) 10/05/22 15:35 Potassium 4.4 mmol/L (3.5-5.1) 10/05/22 15:35 Chloride 106 mmol/L (98-107) 10/05/22 15:35 Carbon Dioxide 27.0 mmol/L (21.0-32.0) 10/05/22 15:35 Anion Gap 3 (5-15) L 10/05/22 15:35 BUN 17 mg/dL (7-18) 10/05/22 15:35 Creatinine 1.22 mg/dL (0.70-1.30) 10/05/22 15:35 Est GFR (MDRD) Af Amer 77 mL/min (>60) 10/05/22 15:35 Est GFR (MDRD) Non-Af 63 mL/min (>60) 10/05/22 15:35 BUN/Creatinine Ratio 13.9 RATIO (10-20) 10/05/22 15:35 Glucose 104 mg/dL (74-106) 10/05/22 15:35 Goal Trough: 15-20 mcg/mL Pharmacy Plan for Drug Dosing: Pharmacy Service will continue to monitor and adjust dosing as required. Medications Vancomycin HCl 1,250 mg/ (Sodium Chloride) 275 mls @ 167 mls/hr IV Q8H FAITH Discontinued Medications Vancomycin HCl 2,000 mg/ (Sodium Chloride) 540 mls @ 250 mls/hr IV X1 ONE Stop: 10/05/22 20:34 Last Admin: 10/05/22 21:17 Dose: Infused Follow-Up Labs: Trough Vancomycin Labs to be done on [date and time ordered]: 10/06 @ 2215
[2022-10-06] MEDS: Levothyroxine 75 MCG Tablet 225 MCG PO (05:36)
[2022-10-06 06:28] LABS: Absolute Lymphocyte Count 2.14 X10^3/uL (0.83-4.51); Absolute Neutrophil Count 8.4 X10^3/uL (2.0-7.7); Basophil# 0.08 X10^3/uL; Basophil% 0.6 % (0-1); Eosinophil# 0.88 X10^3/uL; Eosinophils% 6.9 % (0-5); Hematocrit 38.8 % (40-54); Hemoglobin 12.4 g/dL (13.0-16.5); Lymphocyte # 2.14 X10^3/ul (0.83-4.51); Lymphocyte % 16.9 % (19-41); Mean Corpuscular Hgb 28.1 pg (27.0-32.0); Mean Corpuscular Volume 87.8 fL (80-94); Mean Platelet Vol. 10.6 fl (6.2-12.0); Monocyte# 1.09 X10^3/uL; Monocyte% 8.6 % (0-10); NRBC Flagged by Analyzer 0 % (0-5); Neutrophil # 8.38 X10^3/uL (2.7-7.7); Neutrophil % 66.2 % (47-70); Platelet Count 292 K/mm3 (150-450); RBC Distribution Width CV 14.8 % (11.6-14.6); RBC Distribution Width SD 48.1 fl (35.1-43.9); Red Blood Count 4.42 M/mm3 (4.6-6.2); White Blood Count 12.7 K/mm3 (4.4-11.0)
[2022-10-06 07:16] LABS: ALB/GLOB Ratio 0.6 RATIO (0.9-2.4); AST(SGOT) 17 U/L (15-37); Alanine Aminotransfer ALT/SGPT 32 U/L (16-61); Albumin, Serum 2.6 g/dL (3.2-5.0); Alkaline Phosphatase 125 U/L (45-117); Anion Gap 5 (5-15); BUN 15 mg/dL (7-18); BUN/Creat Ratio 13.4 RATIO (10-20); Chloride 108 mmol/L (98-107); Creatinine, Serum 1.12 mg/dL (0.70-1.30); EST Glomerular Filtration Rate 70 mL/min (>60); Est Glom Filt Rate - Afr Amer 85 mL/min (>60); Estimated Creatinine Clearance 70.97 ml/min; Globulin 4.4 g/dL (2.2-4.2); Glucose 81 mg/dL (74-106); Potassium 3.7 mmol/L (3.5-5.1); Sodium Level 138 mmol/L (136-145)
--- NOTE | 2022-10-06 07:22 | CON.PCM_ITS ---
Assessment & Plan Assessment/Plan (1) Osteomyelitis of ankle or foot, right, acute: (2) Cellulitis of right lower limb: (3) Non-pressure chronic ulcer of other part of right foot with necrosis of muscle: (4) Diabetes mellitus with diabetic polyneuropathy: (5) Type 2 diabetes mellitus with foot ulcer: PLAN: Plan Evaluation performed. Reviewed diagnotic data. Right foot xrays reviewed, there is concern for osteomyelitis to the 1st toe, clinically the ulcer probes to bone as well. MRI has been ordered for further evaluation. We discussed possible surgical intervention pending results. A culture has been obtained, patient is on Vanc and Zosyn. ID has been consulted. Keep ulcer site offloaded. Dressing changes: Betadine, gauze, kerlix and paola dressing for now. Ordered LEAS for further evaluation of LE arterial flow, there is no evidence of acute ischemia. Podiatry will continue to follow, thank you for consultation. HPI Consult Data Date of Consult: 10/06/22 HPI Narrative Reason for Consultation: Right foot ulcer infection HPI Narrative: ILIANA WANG, is a 66 M who presents with history of obesity, diabetes, left BKA, and now right foot ulceration and infection. Patient relates he had a TIA and he relates he hit his leg. He developed a foot wound, and relates overall has been worsening so he came to ER yesterday for further evaluation and management. WBC was slightly elevated. He has purulence and some redness to the site. He has no pain, but he has diabetic neuropathy. He is resting in bed. [facility] Medical History Acute CVA (cerebrovascular accident) Alcohol abuse Alcoholism in recovery Anxiety Anxiety and depression Arthritis Below knee amputation BiPAP (biphasic positive airway pressure) dependence CAD (coronary artery disease) Carotid stenosis with cerebral infarction less than 8 weeks ago Charcot's joint of foot due to diabetes Chronic renal failure, stage 3 (moderate) COPD (chronic obstructive pulmonary disease) Depression Diabetes type 2, uncontrolled Diabetic foot ulcer associated with type 2 diabetes mellitus Diabetic neuropathy associated with type 2 diabetes mellitus Drug abuse Enlarged RV (right ventricle) Former smoker GERD (gastroesophageal reflux disease) GI problem Grade I diastolic dysfunction H/O transfusion of whole blood Hallux limitus of right foot Hearing problem High triglycerides HTN (hypertension) Hyperlipidemia Hypothyroidism Kidney disease New left bundle branch block Non-compliance CECILE treated with BiPAP Osteoarthritis Osteoporosis Physical debility Pneumonia prostate problems Pulmonary hypertension Recurrent infections Sleep apnea Super obesity Thyroid disorder Venous stasis dermatitis Vision problems Vitamin deficiency Home Medications ropinirole 0.25 mg tablet 0.25 mg PO BID restless leg syndrome 08/17/16 [History Last Taken 10/05/22] fluticasone propionate 50 mcg/actuation nasal spray,suspension (Flonase Allergy Relief) 2 spray intranasal DAILY PRN PRN Sinus Congestion 02/14/18 [History Last Taken 10/05/22] bupropion HCl 150 mg tablet,12 hr sustained-release 150 mg PO BID DEPRESSION 03/21/20 [History Last Taken 10/05/22] duloxetine 60 mg capsule,delayed release 60 mg PO DAILY DEPRESSION 03/21/20 [History Last Taken 10/05/22] omeprazole 40 mg capsule,delayed release 40 mg PO BID GERD 03/21/20 [History Last Taken 10/05/22] levothyroxine 75 mcg tablet 225 mcg PO DAILY@0600 thyroid 04/21/20 [History Last Taken 10/05/22] insulin regular hum U-500 conc 500 unit/mL(3 mL) subcut pen 30 units subcut TID 11/02/20 [History Last Taken 10/04/22] dulaglutide 1.5 mg/0.5 mL subcutaneous pen injector (Trulicity) mg subcut QWEEK dm 06/09/22 [History Last Taken 10/01/22] ergocalciferol (vitamin D2) 1,250 mcg (50,000 unit) capsule (Vitamin D2) 1 PO QWEEK 06/09/22 [History Last Taken 10/01/22] albuterol sulfate 90 mcg/actuation aerosol inhaler (ProAir HFA) 2 inh inhalation Q4H PRN shortness of breath or wheezing #6.7 grams 06/13/22 [Rx Last Taken 10/04/22] carvedilol 12.5 mg tablet 12.5 mg PO BID 30 days #60 tabs 06/13/22 [Rx Last Taken Unknown] aspirin 81 mg chewable tablet 81 mg PO BREAKFAST heart health 10/05/22 [History Last Taken 10/05/22] atorvastatin 80 mg tablet 80 mg PO QHS cholesterol 10/05/22 [History Last Taken 10/04/22] clopidogrel 75 mg tablet 75 mg PO DAILY blood thinner 10/05/22 [History Last Taken Unknown] guaifenesin 1,200 mg tablet, extended release 12 hr (Mucus Relief ER) 1,200 mg PO QHS congesttion 10/05/22 [History Last Taken 10/04/22] insulin glargine-yfgn 100 unit/mL (3 mL) subcutaneous pen 60 unit subcut BID DM 10/05/22 [History Last Taken 10/05/22] lisinopril 10 mg-hydrochlorothiazide 12.5 mg tablet 1 tab PO DAILY bp 10/05/22 [History Last Taken Unknown] multivitamin with folic acid 400 mcg tablet 1 tablet PO DAILYCM supplement 10/05/22 [History Last Taken 10/05/22] mupirocin 2 % topical ointment 1 applic NASAL BID nose 10/05/22 [History Last Taken Unknown] tolterodine 2 mg capsule,extended release 24 hr 2 mg PO DAILY bladder 10/05/22 [History Last Taken 10/04/22] Allergy/AdvReac Type Severity Reaction Status Date / Time No Known Allergies Allergy Verified 10/05/22 14:48 Family History Mother Arthritis Diabetes Hypertension High cholesterol Osteoporosis Sister Breast cancer Cancer High cholesterol Brother Lung cancer High cholesterol Father Hypertension High cholesterol Surgical History Partial nontraumatic amputation of left foot Social History household members: none housing: apartment Smoking Status: Former smoker alcohol intake: former substance use type: does not use Physical Exam Narrative Left BKA. Right foot is large ulceration to the medial 1st MTPJ which probes to the bone, there is significant fibrotic tissue, there is cellulitis around the wound, there is some purulent drainage present from the site, there is slight maloder; no crepitus, no blistering, no fluctuance, no visible abscess; no other open lesions; CFT < 2 seconds to all toes with no evidence of acute ischemia, no POP or pain on ROM to the foot or ankle, peripheral neuropathy is present. Const alert, oriented x3 and no apparent distress Lab / Micro Data Result Diagrams: 10/06/22 05:39 10/06/22 05:39 Labs: Laboratory Results - last 24 hr 10/05/22 15:35: WBC 13.1 H, RBC 4.66, Hgb 13.6, Hct 40.5, MCV 86.9, MCH 29.2, MCHC 33.6, RDW Std Deviation 47.3 H, RDW Coeff of Jose 14.8 H, Plt Count 325, MPV 10.2, Immature Gran % (Auto) 0.700, Neut % (Auto) 60.9, Lymph % (Auto) 24.1, [place] % (Auto) 7.9, Eos % (Auto) 5.7 H, Baso % (Auto) 0.7, Absolute Neuts (auto) 8.0 H, Absolute Lymphs (auto) 3.16, Nucleated RBC % 0, ESR 77 H 10/05/22 15:35: Sodium 136, Potassium 4.4, Chloride 106, Carbon Dioxide 27.0, Anion Gap 3 L, BUN 17, Creatinine 1.22, Estim Creat Clear Calc 63.16, Est GFR (MDRD) Af Amer 77, Est GFR (MDRD) Non-Af 63, BUN/Creatinine Ratio 13.9, Glucose 104, Calcium 9.6, C-React Prot Ext Range 20.40 H 10/05/22 16:34: POC Glucose 102 10/05/22 20:46: POC Glucose 75 10/06/22 05:39: WBC 12.7 H, RBC 4.42 L, Hgb 12.4 L, Hct 38.8 L, MCV 87.8, MCH 28.1, MCHC 32.0, RDW Std Deviation 48.1 H, RDW Coeff of Jose 14.8 H, Plt Count 292, MPV 10.6, Immature Gran % (Auto) 0.800, Neut % (Auto) 66.2, Lymph % (Auto) 16.9 L, [place] % (Auto) 8.6, Eos % (Auto) 6.9 H, Baso % (Auto) 0.6, Absolute Neuts (auto) 8.4 H, Absolute Lymphs (auto) 2.14, Nucleated RBC % 0 10/06/22 05:39: Sodium 138, Potassium 3.7, Chloride 108 H, Carbon Dioxide 25.0, Anion Gap 5, BUN 15, Creatinine 1.12, Estim Creat Clear Calc 70.97, Est GFR (MDRD) Af Amer 85, Est GFR (MDRD) Non-Af 70, BUN/Creatinine Ratio 13.4, Glucose 81, Calcium 9.0, Total Bilirubin 0.50, AST 17, ALT 32, Alkaline Phosphatase 125 H, Total Protein 7.0, Albumin 2.6 L, Globulin 4.4 H, Albumin/Globulin Ratio 0.6 L Radiology Impression Foot X-Ray 10/05/22 15:50 IMPRESSION: Suspect cellulitis with ulcer and osteomyelitis of the base of the first proximal phalanx. Electronically Signed: Kamron Maharaj MD at 16:20 EST ,
--- NOTE | 2022-10-06 07:39 | ART_ITS ---
Reason For Study: ulcer Procedure A bilateral lower extremity continuous wave Doppler with analog waveform analysis,segmental pressures,and ankle brachial indexes without exercise. No RUE BP due to IV site. Pt has L BKA. Left Segmental Pressures Left brachial= 134mmHg. Left thigh = 221mmHg. Left popliteal waveform is triphasic. Right Segmental Pressures Right posterior tibial artery = 156mmHg. Right dorsalis pedis artery = 139mmHg. Right digit = 73 mmHg. The right dorsalis pedis waveforms are triphasic. The right posterior tibial artery waveforms are triphasic. Indices The right ankle brachial index by the dorsalis pedis is 1.04. The right ankle brachial index by the posterior tibial artery is 1.16. The right digital-brachial index is .54. The left thigh index is 1.65. VL/Lower Ext Art Exam w/o Exercis Interpretation Summary Right DOMINGUEZ 1.16, normal. Doppler/PVR waveforms of the right leg normal at rest. TBI diminished, pedal/digit disease vs spasm Doppler/PVR waveforms of the left leg normal at rest. Prior left below knee amp utation Ordering Physician: Jimi Quiles Performed By: Raj Cruz RVAlex
--- NOTE | 2022-10-06 07:51 | PN.HOSP_ITS ---
Subjective Subjective Feels well. Objective Data Objective Data Vital Signs: Vital Signs Temp Pulse Resp BP Pulse Ox O2 Del Method O2 Flow Rate 37.2 C 77 18 143/83 H 96 Nasal Cannula 2 10/06/22 02:10 10/06/22 02:10 10/06/22 02:10 10/06/22 02:10 10/06/22 02:10 10/06/22 04:00 10/06/22 02:10 Oxygen Flow Rate (L/min) 2 Oxygen Delivery Method Nasal Cannula Weight: 159.3 kg Body Mass Index (BMI) 48.9 Intake & Output: Intake and Output for Last 24 Hours 10/04/22 10/05/22 10/06/22 23:59 23:59 23:59 Intake Total 1573.33 / 1573.33 275 / 275 Balance 1573.33 / 1573.33 275 / 275 Lab / Micro Data Result Diagrams: 10/06/22 05:39 10/06/22 05:39 Labs: Laboratory Results - last 24 hr 10/05/22 15:35: WBC 13.1 H, RBC 4.66, Hgb 13.6, Hct 40.5, MCV 86.9, MCH 29.2, MCHC 33.6, RDW Std Deviation 47.3 H, RDW Coeff of Jose 14.8 H, Plt Count 325, MPV 10.2, Immature Gran % (Auto) 0.700, Neut % (Auto) 60.9, Lymph % (Auto) 24.1, [place] % (Auto) 7.9, Eos % (Auto) 5.7 H, Baso % (Auto) 0.7, Absolute Neuts (auto) 8.0 H, Absolute Lymphs (auto) 3.16, Nucleated RBC % 0, ESR 77 H 10/05/22 15:35: Sodium 136, Potassium 4.4, Chloride 106, Carbon Dioxide 27.0, Anion Gap 3 L, BUN 17, Creatinine 1.22, Estim Creat Clear Calc 63.16, Est GFR (MDRD) Af Amer 77, Est GFR (MDRD) Non-Af 63, BUN/Creatinine Ratio 13.9, Glucose 104, Calcium 9.6, C-React Prot Ext Range 20.40 H 10/05/22 16:34: POC Glucose 102 10/05/22 20:46: POC Glucose 75 10/06/22 05:39: WBC 12.7 H, RBC 4.42 L, Hgb 12.4 L, Hct 38.8 L, MCV 87.8, MCH 28.1, MCHC 32.0, RDW Std Deviation 48.1 H, RDW Coeff of Jose 14.8 H, Plt Count 292, MPV 10.6, Immature Gran % (Auto) 0.800, Neut % (Auto) 66.2, Lymph % (Auto) 16.9 L, [place] % (Auto) 8.6, Eos % (Auto) 6.9 H, Baso % (Auto) 0.6, Absolute Neuts (auto) 8.4 H, Absolute Lymphs (auto) 2.14, Nucleated RBC % 0 10/06/22 05:39: Sodium 138, Potassium 3.7, Chloride 108 H, Carbon Dioxide 25.0, Anion Gap 5, BUN 15, Creatinine 1.12, Estim Creat Clear Calc 70.97, Est GFR (MDRD) Af Amer 85, Est GFR (MDRD) Non-Af 70, BUN/Creatinine Ratio 13.4, Glucose 81, Calcium 9.0, Total Bilirubin 0.50, AST 17, ALT 32, Alkaline Phosphatase 125 H, Total Protein 7.0, Albumin 2.6 L, Globulin 4.4 H, Albumin/Globulin Ratio 0.6 L Radiography Diagnostic Testing: Radiology Impression Foot X-Ray 10/05/22 15:50 IMPRESSION: Suspect cellulitis with ulcer and osteomyelitis of the base of the first proximal phalanx. Electronically Signed: Kamron Maharaj MD at 16:20 EST , Physical Exam Const alert and no apparent distress Resp normal respiratory effort, no retractions, no use of accessory muscles and clear to auscultation bilaterally Cardio regular rate, regular rhythm, S1 normal heart sound and S2 normal heart sound GI normal to inspection, nondistended, normoactive bowel sounds and soft to palpation Assessment & Plan Assessment/Plan (1) Osteomyelitis of ankle or foot, right, acute: PLAN: Acute infected right foot ulcer, probable osteomyelitis of the proximal phalanx of the first toe Patient with history of chronic ulcer Known history of diabetes complicated by polyneuropathy Will admit to MedSurg, podiatry and infectious disease consult Started on IV vancomycin and Zosyn MRI of the foot PLAN: Plan Chronic conditions: * Hypertension, stable, continue Coreg, lisinopril/hydrochlorothiazide * HLP: continue statin * Type 2 DM, insulin-dependent, continue home insulin regimen, Continue on insulin sliding scale blood glucose checks * Hypothyroidism, continue Synthroid * Anxiety/depression, continue duloxetine DVT PPx-Lovenox SQ twice daily Charges/Coding Visit Charges Inpatient E&M: 35115 Subs Hosp L2
--- NOTE | 2022-10-06 08:02 | WOUNDNOTE ---
wound photo: right medial foot
[2022-10-06 08:10] VITALS: BP 125/66; PULSE 62; RESP 18; TEMP 37; O2SAT 98
--- NOTE | 2022-10-06 09:24 | NURSING ---
pt off floor for MRI
--- NOTE | 2022-10-06 09:30 | MRI_ITS ---
STUDY: MRI RIGHT FOREFOOT WITHOUT CONTRAST REASON FOR EXAM: Male, 66 years old. Right 1st proximal phalanx osteomyelitis TECHNIQUE: Standardized fat and water weighted pulse sequences were obtained in all 3 orthogonal planes. COMPARISON: X-ray of the right foot dated October 05, 2022. FINDINGS: A moderate size partially open soft tissue ulcer is present on the medial side of the head of the first metatarsal bone/MTP joint space measuring at least 1.51 cm in diameter by MRI criteria. The medial cortex that the head neck junction of the first metatarsal bone has been mildly eroded/band due to active osteomyelitis. There is also mild to moderate marrow edema in the same region. A small soft tissue sinus tract associated with the ulcer is also present. There are no additional areas of acute/active osteomyelitis in the forefoot. Minimal reactive edema is seen in the shaft and base of the first proximal phalanx but without cortical erosion. There is also mild subcutaneous edema surrounding this region and over the dorsum of the forefoot. No soft tissue abscess is present. Normal metatarsophalangeal joint of the hallux. Normal tibial and fibular sesamoids, with normal sesamoids-first metatarsal articulations. Normal interphalangeal joint of the hallux. Normal proximal and distal phalanges of the great toe. Normal medial and lateral heads of the flexor hallucis brevis tendons. Normal flexor and extensor hallucis longus tendons. Normal second through fifth metatarsophalangeal (MTP) joints. Normal interphalangeal joints of the second through fifth toes. Normal proximal, middle and distal phalanges of the second through fifth toes. Normal first through fourth intermetatarsal spaces. Normal flexor and extensor tendons of the second through fifth toes. Normal visualized metatarsi. Normal intrinsic muscles of the forefoot. MRI/Lower Ext/No Jt/w/o IMPRESSION: Acute/active osteomyelitis at the head neck junction of the first metatarsal bone 1. A moderate size partially open soft tissue ulcer is present on the medial side of the head of the first metatarsal bone/MTP joint space measuring at least 1.51 cm in diameter by MRI criteria. The medial cortex that the head neck junction of the first metatarsal bone has been mildly eroded/band due to active osteomyelitis. There is also mild to moderate marrow edema in the same region. 2. A small soft tissue sinus tract associated with the ulcer is also present. There are no additional areas of acute/active osteomyelitis in the forefoot. 3. Minimal reactive edema is seen in the shaft and base of the first proximal phalanx but without cortical erosion. There is also mild subcutaneous edema surrounding this region and over the dorsum of the forefoot. Electronically Signed: David Mayberry MD at 13:21 EST ,
--- NOTE | 2022-10-06 09:48 | PCM.PN.ID ---
ID ID: Route of nutrition/ use of supplements: [] Nutritional Intake: [] IV Site: [] Abreu Catheter: [] Assessment & Plan Assessment/Plan (1) Osteomyelitis of ankle or foot, right, acute: PLAN: Pt gone to MRI. Cxs pending. Agree with empiric vanc/zosyn, will do full consult tomorrow. Please call with any questions.
[2022-10-06] MEDS: buPROPion (SR) 150 MG Tablet.SA PO ×2 (11:14→20:30)
[2022-10-06] MEDS: Clopidogrel Bisulfate 75 MG Tablet PO (11:14)
[2022-10-06] MEDS: Tolterodine Tartrate 2 MG CAP.SA PO (11:14)
[2022-10-06] MEDS: Pantoprazole Sodium 40 MG Tablet PO ×2 (11:14→20:30)
[2022-10-06] MEDS: Lisinopril 10 MG Tablet PO (11:15)
[2022-10-06] MEDS: Carvedilol 12.5 MG Tablet PO ×2 (11:15→17:39)
[2022-10-06] MEDS: Aspirin 81 MG TAB.CHEW PO (11:15)
[2022-10-06] MEDS: DULoxetine Hcl 60 MG Capsule PO (11:15)
[2022-10-06] MEDS: hydroCHLOROthiazide 12.5mg 12.5 MG PO (11:15)
[2022-10-06] MEDS: Multivitamins,Therapeutic Tablet 1 TABLET PO (11:15)
[2022-10-06] MEDS: Pramipexole Di-HCl 0.125 MG Tablet PO ×2 (11:15→20:30)
[2022-10-06] MEDS: Glucerna Shake 120 ML LIQUID PO ×2 (11:25→17:36)
--- NOTE | 2022-10-06 11:28 | CASEMGMT ---
ROCKY MCGARRY Assessment: Face to Face with pt for initial transition planning/care coordination assessment. RN MALGORZATA introduced self and role at [facility], pt voices understanding and consents to assessment. Pt is A/O x4 and answers all questions appropriately at this time. Pt sitting up in bed in no distress, nurse at bedside during assessment. Care providers, pharmacy, and demographics verified/updated. Admitting Dx:R foot ulcer/osteomyelitis PCP:MYA Daley Specialists:nevaeh Quiles Pharmacy: [facility] Retail Insurance: My Care [facility], [facility] Prescription Benefit: yes LNOK: Robi Christopher, sister; Estrella Murillo, friend Living Arrangements: Pt lives alone in a two story house with 3 steps to enter with a rail. Pt reports he is I in ADL's although Estrella does assist in washing pt back 3x/wk as well as provides cooking, cleaning and laundry. Transportation: Pt receives transportation through his insurance. DME/HHC/SNF: Pt has a bipap, bariatric bed, walker and BSC. Pt has had HHC in the past with his amputation but he is not sure who he received that from. Pt has been to [facility] as well as another facility remotely but cannot remember the name. Pt states he was supposed to have had his prosthetic delivered from [facility]. Pt states his friend Estrella would cleanse his wound but he was not under any physician's care for it. States it got out of hand fast. Discussed options for wound care and the possibility of IV atb. Pt states he would not have anyone to administer IV atb. Pt states his R leg katherin and he feels he needs therapy for training of his prosthesis as well as strengthening for his R leg. Pt would like to go to a SNF. He states he would like to go to [facility] or [facility]. Updated SW. Pt states no further concerns/needs. CM to follow. Advised pt to ask CM if any further question/concerns/needs arise, voices understanding. Pt Goal: SNF Plan: TBD
[2022-10-06] MEDS: Enoxaparin 40 MG/0.4 ML Syringe SC ×2 (11:36→20:30)
[2022-10-06] MEDS: Insulin Glargine-YFGN 100 UNIT/ML Pen 60 UNIT SC ×2 (11:38→20:29)
[2022-10-06 11:40] LABS: Bedside Glucose 139 mg/dL (74-106)
--- NOTE | 2022-10-06 13:18 | CASEMGMT ---
Discharge Arcade Game Technician This account underwriter sent referral to CC via Care Nick Cook DC Web Machine Tender
--- NOTE | 2022-10-06 13:19 | CASEMGMT ---
Social Work? SW in to meet with pt following update from RN MALGORZATA that pt may need placement at nursing facility and that pt is requesting to go to SNF for wound care training and likely IV antibiotics. SW? introduced self and role at the hospital. Pt agreeable to discussing discharge planning. A list of SNF providers including quality and resource use data and consistent with the patient?s preferred geographic region, medical needs, and insurance network were provided from the [facility] Guide. Pt declined reviewing list, stated already knows choices. 1) [facility] and 2)[facility]. TANGELA notified Taylor. Servin, Discharge Oral And Maxillofacial Surgery of pt choice. Ashlyn to send referral. PLAN: [facility], pending acceptance and precert ? ATUL Bedolla?
--- NOTE | 2022-10-06 13:40 | CASEMGMT ---
Discharge Shoveler MILENA accepted patient. TANGELA Lopez notified. Joyce DOHERTY Chipper Machine Operator
[2022-10-06 16:55] LABS: Bedside Glucose 169 mg/dL (74-106)
[2022-10-06] MEDS: Insulin U-500 UNITS/ML PEN 30 UNITS SC (17:37)
[2022-10-06 17:42] VITALS: BP 132/80; PULSE 74; RESP 16; TEMP 36.7; O2SAT 99
[2022-10-06 19:10] LABS: Vancomycin, Trough Level 23.9 ug/mL (5.0-15.0)
--- NOTE | 2022-10-06 19:36 | PCM.RX.CS ---
Consult Pharmacy has been consulted to manage selected antiobiotic: Vancomycin Type of Consult: Follow-up Suspected Infection: Osteomyelitis Prior Doses of Antibiotics Received/Current Regimen: current dose is 1250mg IV q8h Labs: Sodium 138 mmol/L (136-145) 10/06/22 05:39 Potassium 3.7 mmol/L (3.5-5.1) 10/06/22 05:39 Chloride 108 mmol/L (98-107) H 10/06/22 05:39 Carbon Dioxide 25.0 mmol/L (21.0-32.0) 10/06/22 05:39 Anion Gap 5 (5-15) 10/06/22 05:39 BUN 15 mg/dL (7-18) 10/06/22 05:39 Creatinine 1.12 mg/dL (0.70-1.30) 10/06/22 05:39 Est GFR (MDRD) Af Amer 85 mL/min (>60) 10/06/22 05:39 Est GFR (MDRD) Non-Af 70 mL/min (>60) 10/06/22 05:39 BUN/Creatinine Ratio 13.4 RATIO (10-20) 10/06/22 05:39 Glucose 81 mg/dL (74-106) 10/06/22 05:39 Vancomycin Trough 23.9 ug/mL (5.0-15.0) H 10/06/22 18:11 Microbiology: Microbiology 10/05/22 16:01 Wound Drainage - Other Gram Stain - Final 10/05/22 16:01 Wound Drainage - Other Wound Culture - Preliminary Gram positive organism Weight used for dosin.3 kg Estimated Creatinine Clearance: 102ml/min Goal Trough: 15-20 mcg/mL Pharmacy Plan for Drug Dosing: The vanc trough drawn at 18:11 tonight (approx 6.5 hours after the previous dose) was 23.9. The previous dose was given a little late but the trough most likely would still have been above 20 so will hold the current infusion which has been infusing for about 15 minutes. Called the nurse to hold the rest of the bag. Will get a vanc random level with AM labs at 06:00 tomorrow and can restart at a new dose if the level <20. The patient's CrCl of 102 ml/min was calculated using an adjusted body weight. Pharmacy Service will continue to monitor and adjust dosing as required. Follow-Up Labs: Trough Vancomycin - random Labs to be done on [date and time ordered]: 10/07/22 0600
--- NOTE | 2022-10-06 19:40 | NURSING ---
RECEIVED CALL FROM TAN IN PHARMACY THAT PT VANC TROUGH @ 1800 WAS ELEVATED SO NOT TO GIVE 1900 DOSE OF VANCOMYCIN. MEDICATION WAS ALREADY STARTED BY PREVIOUS NURSE, SO MEDICATION WAS STOPPED.
[2022-10-06] MEDS: Atorvastatin Calcium 80 MG Tablet PO (20:30)
[2022-10-06 21:00] LABS: Bedside Glucose 173 mg/dL (74-106)
[2022-10-07] VITALS: BP 100/55; PULSE 73; RESP 18; TEMP 37.3; O2SAT 99
[2022-10-07] MEDS: Levothyroxine 75 MCG Tablet 225 MCG PO (05:54)
[2022-10-07 05:56] VITALS: BP 112/55; PULSE 69; RESP 18; TEMP 36.8; O2SAT 96
[2022-10-07 06:08] LABS: Absolute Lymphocyte Count 2.44 X10^3/uL (0.83-4.51); Absolute Neutrophil Count 7.2 X10^3/uL (2.0-7.7); Basophil# 0.08 X10^3/uL; Basophil% 0.7 % (0-1); Eosinophil# 0.68 X10^3/uL; Hematocrit 39.4 % (40-54); Hemoglobin 12.9 g/dL (13.0-16.5); Lymphocyte # 2.44 X10^3/ul (0.83-4.51); Lymphocyte % 21.5 % (19-41); Mean Corp Hgb Conc 32.7 g/dL (32-36); Mean Corpuscular Hgb 28.7 pg (27.0-32.0); Mean Corpuscular Volume 87.6 fL (80-94); Mean Platelet Vol. 9.9 fl (6.2-12.0); Monocyte# 0.91 X10^3/uL; NRBC Flagged by Analyzer 0 % (0-5); Neutrophil # 7.18 X10^3/uL (2.7-7.7); Neutrophil % 63.1 % (47-70); Platelet Count 304 K/mm3 (150-450); RBC Distribution Width CV 14.8 % (11.6-14.6); White Blood Count 11.4 K/mm3 (4.4-11.0)
[2022-10-07 06:41] LABS: Anion Gap 3 (5-15); BUN 17 mg/dL (7-18); BUN/Creat Ratio 12.2 RATIO (10-20); Calcium,Total 9.3 mg/dL (8.5-10.1); Chloride 108 mmol/L (98-107); Creatinine, Serum 1.39 mg/dL (0.70-1.30); EST Glomerular Filtration Rate 55 mL/min (>60); Est Glom Filt Rate - Afr Amer 66 mL/min (>60); Estimated Creatinine Clearance 57.18 ml/min; Glucose 105 mg/dL (74-106); Potassium 3.8 mmol/L (3.5-5.1); Sodium Level 138 mmol/L (136-145)
[2022-10-07 06:43] LABS: Vancomycin, Random Level 17.2 ug/mL (0.0-15.0)
--- NOTE | 2022-10-07 07:12 | PCM.RX.CS ---
Consult Pharmacy has been consulted to manage selected antiobiotic: Vancomycin Type of Consult: Follow-up Suspected Infection: Osteomyelitis Prior Doses of Antibiotics Received/Current Regimen: the patient had been on vanc 1250mg IV q8h until that was held last night due to a high trough Labs: Sodium 138 mmol/L (136-145) 10/07/22 05:54 Potassium 3.8 mmol/L (3.5-5.1) 10/07/22 05:54 Chloride 108 mmol/L (98-107) H 10/07/22 05:54 Carbon Dioxide 27.0 mmol/L (21.0-32.0) 10/07/22 05:54 Anion Gap 3 (5-15) L 10/07/22 05:54 BUN 17 mg/dL (7-18) 10/07/22 05:54 Creatinine 1.39 mg/dL (0.70-1.30) H 10/07/22 05:54 Est GFR (MDRD) Af Amer 66 mL/min (>60) 10/07/22 05:54 Est GFR (MDRD) Non-Af 55 mL/min (>60) L 10/07/22 05:54 BUN/Creatinine Ratio 12.2 RATIO (10-20) 10/07/22 05:54 Glucose 105 mg/dL (74-106) 10/07/22 05:54 Vancomycin Trough 23.9 ug/mL (5.0-15.0) H 10/06/22 18:11 Random Vancomycin 17.2 ug/mL (0.0-15.0) H 10/07/22 05:54 Microbiology: Microbiology 10/05/22 16:01 Wound Drainage - Other Gram Stain - Final 10/05/22 16:01 Wound Drainage - Other Wound Culture - Preliminary Gram positive organism Weight used for dosin.3 kg Estimated Creatinine Clearance: 82.7ml/min Goal Trough: 15-20 mcg/mL Pharmacy Plan for Drug Dosing: The vanc random level drawn at 05:54 this morning was 17.2. Since it is back below 20, dosing can be resumed. Will restart at a newly calculated dose of 1500mg IV q12h. Will order a trough level to be drawn before the 4th dose. The patient's CrCl of 82.7ml/min was calculated using an adjusted body weight. Of note, the patient's SCr is up to 1.39 today so will continue to monitor renal function. Pharmacy Service will continue to monitor and adjust dosing as required. Follow-Up Labs: Trough Vancomycin Labs to be done on [date and time ordered]: 10/08/22 19:30
--- NOTE | 2022-10-07 07:13 | PN_ITS ---
Subjective Subjective Patient was seen this morning for follow up on right foot. He is resting in bed. WBC improved. No fever, chills, nausea or vomiting. Objective Data Objective Data Vital Signs: Vital Signs Temp Pulse Resp BP Pulse Ox O2 Del Method O2 Flow Rate 98.3 F 69 18 112/55 L 96 Bi-pap 1 10/07/22 05:56 10/07/22 05:56 10/07/22 05:56 10/07/22 05:56 10/07/22 05:56 10/07/22 05:56 10/06/22 10:00 Oxygen Flow Rate (L/min) 1 Oxygen Delivery Method Bi-pap Weight: 159.3 kg Body Mass Index (BMI) 48.9 Intake & Output: Intake and Output for Last 24 Hours 10/05/22 10/06/22 10/07/22 23:59 23:59 23:59 Intake Total 1573.33 / 1573.33 719.58 / 719.58 50 / 50 Output Total 750 / 750 Balance 1573.33 / 1573.33 719.58 / 719.58 -700 / -700 Lab / Micro Data Result Diagrams: 10/07/22 05:54 10/07/22 05:54 Labs: Laboratory Results - last 24 hr 10/06/22 05:39: Sodium 138, Potassium 3.7, Chloride 108 H, Carbon Dioxide 25.0, Anion Gap 5, BUN 15, Creatinine 1.12, Estim Creat Clear Calc 70.97, Est GFR (MDRD) Af Amer 85, Est GFR (MDRD) Non-Af 70, BUN/Creatinine Ratio 13.4, Glucose 81, Calcium 9.0, Total Bilirubin 0.50, AST 17, ALT 32, Alkaline Phosphatase 125 H, Total Protein 7.0, Albumin 2.6 L, Globulin 4.4 H, Albumin/Globulin Ratio 0.6 L 10/06/22 11:13: POC Glucose 139 H 10/06/22 16:13: POC Glucose 169 H 10/06/22 18:11: Vancomycin Trough 23.9 H 10/06/22 20:15: POC Glucose 173 H 10/07/22 05:54: WBC 11.4 H, RBC 4.50 L, Hgb 12.9 L, Hct 39.4 L, MCV 87.6, MCH 28.7, MCHC 32.7, RDW Std Deviation 48.0 H, RDW Coeff of Jose 14.8 H, Plt Count 30 4, MPV 9.9, Immature Gran % (Auto) 0.700, Neut % (Auto) 63.1, Lymph % (Auto) 21.5, Pierce % (Auto) 8.0, Eos % (Auto) 6.0 H, Baso % (Auto) 0.7, Absolute Neuts (auto) 7.2, Absolute Lymphs (auto) 2.44, Nucleated RBC % 0 10/07/22 05:54: Sodium 138, Potassium 3.8, Chloride 108 H, Carbon Dioxide 27.0, Anion Gap 3 L, BUN 17, Creatinine 1.39 H, Estim Creat Clear Calc 57.18, Est GFR (MDRD) Af Amer 66, Est GFR (MDRD) Non-Af 55 L, BUN/Creatinine Ratio 12.2, Glucose 105, Calcium 9.3 10/07/22 05:54: Random Vancomycin 17.2 H Micro: Microbiology 10/05/22 16:01 Wound Drainage - Other Gram Stain - Final 10/05/22 16:01 Wound Drainage - Other Wound Culture - Preliminary Gram positive organism Radiography Diagnostic Testing: Radiology Impression Extremity Arterial Study 10/06/22 07:39 Interpretation Summary Right DOMINGUEZ 1.16, normal. Doppler/PVR waveforms of the right leg normal at rest. TBI diminished, pedal/digit disease vs spasm Doppler/PVR waveforms of the left leg normal at rest. Prior left below knee amputation Ordering Physician: Jimi Quiles Performed By: Raj Cruz, RVT Lower Extremity MRI 10/06/22 09:30 IMPRESSION: Acute/active osteomyelitis at the head neck junction of the first metatarsal bone 1. A moderate size partially open soft tissue ulcer is present on the medial side of the head of the first metatarsal bone/MTP joint space measuring at least 1.51 cm in diameter by MRI criteria. The medial cortex that the head neck junction of the first metatarsal bone has been mildly eroded/band due to active osteomyelitis. There is also mild to moderate marrow edema in the same region. 2. A small soft tissue sinus tract associated with the ulcer is also present. There are no additional areas of acute/active osteomyelitis in the forefoot. 3. Minimal reactive edema is seen in the shaft and base of the first proximal phalanx but without cortical erosion. There is also mild subcutaneous edema surrounding this region and over the dorsum of the forefoot. Electronically Signed: David Mayberry MD at 13:21 EST , Physical Exam Narrative Left BKA. Right foot is large ulceration to the medial 1st MTPJ which probes to the bone, there is significant fibrotic tissue, there is stable cellulitis around the wound, there is some purulent drainage present from the site but appears less than yesterday; no crepitus, no blistering, no fluctuance, no visible abscess; no other open lesions; CFT < 2 seconds to all toes with no evidence of acute ischemia, no POP or pain on ROM to the foot or ankle, peripheral neuropathy is present. Const alert, oriented x3 and no apparent distress Assessment & Plan Assessment/Plan (1) Osteomyelitis of ankle or foot, right, acute: (2) Cellulitis of right lower limb: (3) Non-pressure chronic ulcer of other part of right foot with necrosis of muscle: (4) Diabetes mellitus with diabetic polyneuropathy: (5) Type 2 diabetes mellitus with foot ulcer: PLAN: Plan Re-evaluation performed. Reviewed diagnostic data. Right foot xrays reviewed, reviewed MRI which showed evidence c/w osteomyelitis to the 1st toe proximal phalanx and 1st metatarsal. Given the findings 1st ray amputation is recommended - discussed this with patient. Reviewed rationale of this with patient, however he relates he is not going to agree to amputation at this time. He relates he needs some time to think and pray about it. Clinically no worsening of ulcer and infection findings today - stable at this time. We will need to continue to monitor this. A culture has been obtained - gram positive organisim growing at this time. Dr. Castillo/ID on consult - patient on Vanc and Zosyn at this time. Keep ulcer site offloaded. Dressing changes: Betadine, gauze, kerlix and paola dressing for now. Ordered LEAS for further evaluation of LE arterial flow, there is no evidence of acute ischemia. Podiatry will continue to follow.
--- NOTE | 2022-10-07 07:19 | PN.HOSP_ITS ---
Subjective Subjective Has declined surgery at this time. States that he is worried that it may lead to further surgery and possible amputation of his right leg Objective Data Objective Data Vital Signs: Vital Signs Temp Pulse Resp BP Pulse Ox O2 Del Method O2 Flow Rate 36.8 C 69 18 112/55 L 96 Bi-pap 1 10/07/22 05:56 10/07/22 05:56 10/07/22 05:56 10/07/22 05:56 10/07/22 05:56 10/07/22 05:56 10/06/22 10:00 Oxygen Flow Rate (L/min) 1 Oxygen Delivery Method Bi-pap Weight: 159.3 kg Body Mass Index (BMI) 48.9 Intake & Output: Intake and Output for Last 24 Hours 10/05/22 10/06/22 10/07/22 23:59 23:59 23:59 Intake Total 1573.33 / 1573.33 719.58 / 719.58 50 / 50 Output Total 750 / 750 Balance 1573.33 / 1573.33 719.58 / 719.58 -700 / -700 Lab / Micro Data Result Diagrams: 10/07/22 05:54 10/07/22 05:54 Labs: Laboratory Results - last 24 hr 10/06/22 11:13: POC Glucose 139 H 10/06/22 16:13: POC Glucose 169 H 10/06/22 18:11: Vancomycin Trough 23.9 H 10/06/22 20:15: POC Glucose 173 H 10/07/22 05:54: WBC 11.4 H, RBC 4.50 L, Hgb 12.9 L, Hct 39.4 L, MCV 87.6, MCH 28.7, MCHC 32.7, RDW Std Deviation 48.0 H, RDW Coeff of Jose 14.8 H, Plt Count 304, MPV 9.9, Immature Gran % (Auto) 0.700, Neut % (Auto) 63.1, Lymph % (Auto) 21.5, Iron % (Auto) 8.0, Eos % (Auto) 6.0 H, Baso % (Auto) 0.7, Absolute Neuts (auto) 7.2, Absolute Lymphs (auto) 2.44, Nucleated RBC % 0 10/07/22 05:54: Sodium 138, Potassium 3.8, Chloride 108 H, Carbon Dioxide 27.0, Anion Gap 3 L, BUN 17, Creatinine 1.39 H, Estim Creat Clear Calc 57.18, Est GFR (MDRD) Af Amer 66, Est GFR (MDRD) Non-Af 55 L, BUN/Creatinine Ratio 12.2, Glucose 105, Calcium 9.3 10/07/22 05:54: Random Vancomycin 17.2 H Micro: Microbiology 10/05/22 16:01 Wound Drainage - Other Gram Stain - Final 10/05/22 16:01 Wound Drainage - Other Wound Culture - Preliminary Gram positive organism Radiography Diagnostic Testing: Radiology Impression Extremity Arterial Study 10/06/22 07:39 Interpretation Summary Right DOMINGUEZ 1.16, normal. Doppler/PVR waveforms of the right leg normal at rest. TBI diminished, pedal/digit disease vs spasm Doppler/PVR waveforms of the left leg normal at rest. Prior left below knee amputation Ordering Physician: Jimi Quiles Performed By: Raj Cruz RVT Lower Extremity MRI 10/06/22 09:30 IMPRESSION: Acute/active osteomyelitis at the head neck junction of the first metatarsal bone 1. A moderate size partially open soft tissue ulcer is present on the medial side of the head of the first metatarsal bone/MTP joint space measuring at least 1.51 cm in diameter by MRI criteria. The medial cortex that the head neck junction of the first metatarsal bone has been mildly eroded/band due to active osteomyelitis. There is also mild to moderate marrow edema in the same region. 2. A small soft tissue sinus tract associated with the ulcer is also present. There are no additional areas of acute/active osteomyelitis in the forefoot. 3. Minimal reactive edema is seen in the shaft and base of the first proximal phalanx but without cortical erosion. There is also mild subcutaneous edema surrounding this region and over the dorsum of the forefoot. Electronically Signed: David Mayberry MD at 13:21 EST Reading Location ID and State: [address] [place] [address] , Service support , Physical Exam Const alert and no apparent distress Extremity Extremity Narrative: Right leg wrapped, did not remove. Assessment & Plan Assessment/Plan (1) Osteomyelitis of ankle or foot, right, acute: PLAN: MRI showed osteomyelitis of the first metatarsal. Seen by podiatry who recommended amputation. Patient decide Patient with history of chronic ulcer Known history of diabetes complicated by polyneuropathy Started on IV vancomycin and Zosyn MRI of the foot shows right first MTP osteomyelitis. Patient at this time is declined surgery due to concerns about need for further surgeries including amputation. Is explained to him that this may lead to worsening infection despite antibiotics which may eventually lead to that. Discussed with the patient about the need for IV antibiotics. He seemed inclined towards but did not fully commit to that. Still waiting on cultures which are thus far showing gram-positive cocci and gram-negative rods. Infectious disease consultation pending. PLAN: Plan Chronic conditions: * Hypertension, stable, continue Coreg, lisinopril/hydrochlorothiazide * HLP: continue statin * Type 2 DM, insulin-dependent, continue home insulin regimen, Continue on insulin sliding scale blood glucose checks * Hypothyroidism, continue Synthroid * Anxiety/depression, continue duloxetine DVT PPx-Lovenox SQ twice daily Greater than 40 minutes of which greater than 50% of time was counseling the patient about his osteomyelitis, the recommendations for surgery and IV antibiotics and also acknowledging the concerns that he has not tried assuaged some of his concerns Charges/Coding Visit Charges Inpatient E&M: 93525 Subs Hosp L3
--- NOTE | 2022-10-07 07:48 | NURSING ---
Dr. Gaines Aware that zosyn IV is infusing and Vancomycin due this morning. Dr. Gaines does not want Zosyn to be infused fast.
[2022-10-07] MEDS: buPROPion (SR) 150 MG Tablet.SA PO ×2 (08:16→22:49)
[2022-10-07] MEDS: DULoxetine Hcl 60 MG Capsule PO (08:16)
[2022-10-07] MEDS: Lisinopril 10 MG Tablet PO (08:16)
[2022-10-07] MEDS: Multivitamins,Therapeutic Tablet 1 TABLET PO (08:16)
[2022-10-07] MEDS: Tolterodine Tartrate 2 MG CAP.SA PO (08:16)
[2022-10-07] MEDS: Pantoprazole Sodium 40 MG Tablet PO ×2 (08:16→22:49)
[2022-10-07] MEDS: Enoxaparin 40 MG/0.4 ML Syringe SC ×2 (08:17→22:49)
[2022-10-07] MEDS: Aspirin 81 MG TAB.CHEW PO (08:17)
[2022-10-07] MEDS: Carvedilol 12.5 MG Tablet PO (08:17)
[2022-10-07] MEDS: hydroCHLOROthiazide 12.5mg 12.5 MG PO (08:17)
[2022-10-07] MEDS: Pramipexole Di-HCl 0.125 MG Tablet PO ×2 (08:17→22:49)
[2022-10-07] MEDS: Clopidogrel Bisulfate 75 MG Tablet PO (08:17)
[2022-10-07] MEDS: Insulin Glargine-YFGN 100 UNIT/ML Pen 60 UNIT SC ×2 (08:25→22:53)
[2022-10-07 08:30] LABS: Bedside Glucose 120 mg/dL (74-106)
--- NOTE | 2022-10-07 10:11 | CASEMGMT ---
Social work notified by Dr. Gaines that pt has declined surgery and will need to go on IV antibiotics. Dr. Gaines stated still awaiting cultures but precert can be started today. notified [facility] to begin precert. [facility] responded and informed the precert will be started this morning. PLAN: [facility], pending precert ATUL Bedolla
[2022-10-07 12:12] VITALS: BP 128/66; PULSE 73; RESP 18; TEMP 36.9; O2SAT 100
[2022-10-07 12:41] LABS: Bedside Glucose 118 mg/dL (74-106)
[2022-10-07 13:02] VITALS: BP 131/50; PULSE 66; RESP 18; TEMP 36.8; O2SAT 98
--- NOTE | 2022-10-07 13:50 | PCM.CONS.GEN ---
Assessment & Plan Assessment/Plan (1) Osteomyelitis of ankle or foot, right, acute: PLAN: Wound cx with GPC and GNR. MRI showed osteo. Pt considering amputation. Cont empiric vanc/zosyn. Will follow, thank you (2) Diabetes mellitus with diabetic polyneuropathy: HPI Consult Data Date of Consult: 10/07/22 HPI Narrative Reason for Consultation: osteo HPI Narrative: ILIANA WANG, is a 66 M with obesity, DM neuropathy, L BKA, presented with several months progressive R foot ulcer. No pain, no fever. Reports worsening redness and purulent drainage from R foot. No recent abx. Mild nausea. Admitted from ED, started on vanc/zosyn, seen by podiatry. Full ROS performed and neg except as noted above. [facility] Medical History Acute CVA (cerebrovascular accident) Alcohol abuse Alcoholism in recovery Anxiety Anxiety and depression Arthritis Below knee amputation BiPAP (biphasic positive airway pressure) dependence CAD (coronary artery disease) Carotid stenosis with cerebral infarction less than 8 weeks ago Charcot's joint of foot due to diabetes Chronic renal failure, stage 3 (moderate) COPD (chronic obstructive pulmonary disease) Depression Diabetes type 2, uncontrolled Diabetic foot ulcer associated with type 2 diabetes mellitus Diabetic neuropathy associated with type 2 diabetes mellitus Drug abuse Enlarged RV (right ventricle) Former smoker GERD (gastroesophageal reflux disease) GI problem Grade I diastolic dysfunction H/O transfusion of whole blood Hallux limitus of right foot Hearing problem High triglycerides HTN (hypertension) Hyperlipidemia Hypothyroidism Kidney disease New left bundle branch block Non-compliance CECILE treated with BiPAP Osteoarthritis Osteoporosis Physical debility Pneumonia prostate problems Pulmonary hypertension Recurrent infections Sleep apnea Super obesity Thyroid disorder Venous stasis dermatitis Vision problems Vitamin deficiency Home Medications ropinirole 0.25 mg tablet 0.25 mg PO BID restless leg syndrome 08/17/16 [History Last Taken 10/05/22] fluticasone propionate 50 mcg/actuation nasal spray,suspension (Flonase Allergy Relief) 2 spray intranasal DAILY PRN PRN Sinus Congestion 02/14/18 [History Last Taken 10/05/22] bupropion HCl 150 mg tablet,12 hr sustained-release 150 mg PO BID DEPRESSION 03/21/20 [History Last Taken 10/05/22] duloxetine 60 mg capsule,delayed release 60 mg PO DAILY DEPRESSION 03/21/20 [History Last Taken 10/05/22] omeprazole 40 mg capsule,delayed release 40 mg PO BID GERD 03/21/20 [History Last Taken 10/05/22] levothyroxine 75 mcg tablet 225 mcg PO DAILY@0600 thyroid 04/21/20 [History Last Taken 10/05/22] insulin regular hum U-500 conc 500 unit/mL(3 mL) subcut pen 30 units subcut TID 11/02/20 [History Last Taken 10/04/22] dulaglutide 1.5 mg/0.5 mL subcutaneous pen injector (Trulicity) mg subcut QWEEK dm 06/09/22 [History Last Taken 10/01/22] ergocalciferol (vitamin D2) 1,250 mcg (50,000 unit) capsule (Vitamin D2) 1 PO QWEEK Check with primary doctor 06/09/22 [History Last Taken 10/01/22] albuterol sulfate 90 mcg/actuation aerosol inhaler (ProAir HFA) 2 inh inhalation Q4H PRN shortness of breath or wheezing #6.7 grams 06/13/22 [Rx Last Taken 10/04/22] carvedilol 12.5 mg tablet 12.5 mg PO BID 30 days #60 tabs 06/13/22 [Rx Last Taken Unknown] aspirin 81 mg chewable tablet 81 mg PO BREAKFAST heart health 10/05/22 [History Last Taken 10/05/22] atorvastatin 80 mg tablet 80 mg PO QHS cholesterol 10/05/22 [History Last Taken 10/04/22] clopidogrel 75 mg tablet 75 mg PO DAILY blood thinner 10/05/22 [History Last Taken Unknown] guaifenesin 1,200 mg tablet, extended release 12 hr (Mucus Relief ER) 1,200 mg PO QHS congesttion 10/05/22 [History Last Taken 10/04/22] insulin glargine-yfgn 100 unit/mL (3 mL) subcutaneous pen 60 unit subcut BID DM 10/05/22 [History Last Taken 10/05/22] lisinopril 10 mg-hydrochlorothiazide 12.5 mg tablet 1 tab PO DAILY bp 10/05/22 [History Last Taken Unknown] multivitamin with folic acid 400 mcg tablet 1 tablet PO DAILYCM supplement 10/05/22 [History Last Taken 10/05/22] mupirocin 2 % topical ointment 1 applic NASAL BID nose 10/05/22 [History Last Taken Unknown] tolterodine 2 mg capsule,extended release 24 hr 2 mg PO DAILY bladder 10/05/22 [History Last Taken 10/04/22] Allergy/AdvReac Type Severity Reaction Status Date / Time No Known Allergies Allergy Verified 10/05/22 14:48 Family History Mother Arthritis Diabetes Hypertension High cholesterol Osteoporosis Sister Breast cancer Cancer High cholesterol Brother Lung cancer High cholesterol Father Hypertension High cholesterol Surgical History Partial nontraumatic amputation of left foot Social History household members: none housing: apartment Smoking Status: Former smoker alcohol intake: former substance use type: does not use Physical Exam Const alert, oriented x3 and no apparent distress General Appearance: cooperative HEENT normocephalic and head/scalp atraumatic Eyes PERRL and EOMs intact bilaterally Neck supple and No nodes Resp normal air movement and clear to auscultation bilaterally Cardio regular rate and regular rhythm GI soft to palpation, non-tender and non-distended Extremity General Extremity: edema Skin Skin Narrative: Reviewed photo R foot ulcer Neuro CN's II-XII intact bilaterally Lab / Micro Data Attestation: I reviewed the patient's lab results. Result Diagrams: 10/07/22 05:54 10/07/22 05:54 Labs: Laboratory Results - last 24 hr 10/06/22 16:13: POC Glucose 169 H 10/06/22 18:11: Vancomycin Trough 23.9 H 10/06/22 20:15: POC Glucose 173 H 10/07/22 05:54: WBC 11.4 H, RBC 4.50 L, Hgb 12.9 L, Hct 39.4 L, MCV 87.6, MCH 28.7, MCHC 32.7, RDW Std Deviation 48.0 H, RDW Coeff of Jose 14.8 H, Plt Count 304, MPV 9.9, Immature Gran % (Auto) 0.700, Neut % (Auto) 63.1, Lymph % (Auto) 21.5, [place] % (Auto) 8.0, Eos % (Auto) 6.0 H, Baso % (Auto) 0.7, Absolute Neuts (auto) 7.2, Absolute Lymphs (auto) 2.44, Nucleated RBC % 0 10/07/22 05:54: Sodium 138, Potassium 3.8, Chloride 108 H, Carbon Dioxide 27.0, Anion Gap 3 L, BUN 17, Creatinine 1.39 H, Estim Creat Clear Calc 57.18, Est GFR (MDRD) Af Amer 66, Est GFR (MDRD) Non-Af 55 L, BUN/Creatinine Ratio 12.2, Glucose 105, Calcium 9.3 10/07/22 05:54: Random Vancomycin 17.2 H 10/07/22 07:59: POC Glucose 120 H 10/07/22 12:01: POC Glucose 118 H Micro: Microbiology 10/05/22 16:01 Wound Drainage - Other Gram Stain - Final 10/05/22 16:01 Wound Drainage - Other Wound Culture - Preliminary Gram Positive Cocci Gram negative steph Radiology Impression Extremity Arterial Study 10/06/22 07:39 Interpretation Summary Right DOMINGUEZ 1.16, normal. Doppler/PVR waveforms of the right leg normal at rest. TBI diminished, pedal/digit disease vs spasm Doppler/PVR waveforms of the left leg normal at rest. Prior left below knee amputation Ordering Physician: Jimi Quiles Performed By: Raj Cruz, RVT
[2022-10-07 16:15] VITALS: BP 125/55; PULSE 74; RESP 18; TEMP 37.4; O2SAT 96
[2022-10-07 16:55] LABS: Bedside Glucose 134 mg/dL (74-106)
[2022-10-07 22:34] VITALS: BP 114/70; PULSE 79; RESP 18; TEMP 37.6; O2SAT 95
[2022-10-07] MEDS: Atorvastatin Calcium 80 MG Tablet PO (22:49)
[2022-10-07 23:26] LABS: Bedside Glucose 158 mg/dL (74-106)
[2022-10-08 04:07] VITALS: BP 134/64; PULSE 80; RESP 18; TEMP 37; O2SAT 99
[2022-10-08] MEDS: Levothyroxine 75 MCG Tablet 225 MCG PO (04:12)
[2022-10-08 06:55] LABS: Absolute Lymphocyte Count 2.12 X10^3/uL (0.83-4.51); Absolute Neutrophil Count 7.8 X10^3/uL (2.0-7.7); Basophil# 0.09 X10^3/uL; Basophil% 0.8 % (0-1); Eosinophil# 0.82 X10^3/uL; Eosinophils% 6.9 % (0-5); Hematocrit 39.3 % (40-54); Hemoglobin 12.6 g/dL (13.0-16.5); Lymphocyte # 2.12 X10^3/ul (0.83-4.51); Lymphocyte % 17.8 % (19-41); Mean Corp Hgb Conc 32.1 g/dL (32-36); Mean Corpuscular Hgb 28.6 pg (27.0-32.0); Mean Corpuscular Volume 89.3 fL (80-94); Mean Platelet Vol. 10.6 fl (6.2-12.0); Monocyte# 1.04 X10^3/uL; Monocyte% 8.7 % (0-10); NRBC Flagged by Analyzer 0 % (0-5); Neutrophil # 7.77 X10^3/uL (2.7-7.7); Neutrophil % 65.2 % (47-70); Platelet Count 304 K/mm3 (150-450); RBC Distribution Width CV 14.9 % (11.6-14.6); White Blood Count 11.9 K/mm3 (4.4-11.0)
--- NOTE | 2022-10-08 07:05 | PN_ITS ---
Subjective Subjective Patient was seen this morning for follow up on right foot. He is restingi n bed. WBC 11.9, patient afebrile. No new complaints. Objective Data Objective Data Vital Signs: Vital Signs Temp Pulse Resp BP Pulse Ox O2 Del Method O2 Flow Rate 98.6 F 80 18 134/64 H 99 Bi-pap 1 10/08/22 04:07 10/08/22 04:07 10/08/22 04:07 10/08/22 04:07 10/08/22 04:07 10/08/22 04:07 10/06/22 10:00 Oxygen Flow Rate (L/min) 1 Oxygen Delivery Method Bi-pap Weight: 159.3 kg Body Mass Index (BMI) 48.9 Intake & Output: Intake and Output for Last 24 Hours 10/06/22 10/07/22 10/08/22 23:59 23:59 23:59 Intake Total 719.58 / 719.58 2400.00 / 2400.00 50 / 50 Output Total 1390 / 1390 Balance 719.58 / 719.58 1010.00 / 1010.00 50 / 50 Lab / Micro Data Result Diagrams: 10/08/22 06:24 10/08/22 06:24 Labs: Laboratory Results - last 24 hr 10/07/22 07:59: POC Glucose 120 H 10/07/22 12:01: POC Glucose 118 H 10/07/22 16:11: POC Glucose 134 H 10/07/22 22:52: POC Glucose 158 H 10/08/22 06:24: WBC 11.9 H, RBC 4.40 L, Hgb 12.6 L, Hct 39.3 L, MCV 89.3, MCH 28.6, MCHC 32.1, RDW Std Deviation 49.0 H, RDW Coeff of [place] 14.9 H, Plt Count 304, MPV 10.6, Immature Gran % (Auto) 0.600, Neut % (Auto) 65.2, Lymph % (Auto) 17.8 L, [place] % (Auto) 8.7, Eos % (Auto) 6.9 H, Baso % (Auto) 0.8, Absolute Neuts (auto) 7.8 H, Absolute Lymphs (auto) 2.12, Nucleated RBC % 0 Micro: Microbiology 10/05/22 16:01 Wound Drainage - Other Gram Stain - Final 10/05/22 16:01 Wound Drainage - Other Wound Culture - Preliminary Enterococcus faecalis Gram negative stehp Physical Exam Narrative Left BKA. Right foot is large ulceration to the medial 1st MTPJ which probes to the bone, there is significant fibrotic tissue, there is less cellulitis around the wound, there is less purulent drainage present from the site; no crepitus, no blis tering, no fluctuance, no visible abscess; no other open lesions; CFT < 2 seconds to all toes with no evidence of acute ischemia, no POP or pain on ROM to the foot or ankle, peripheral neuropathy is present. Const alert, oriented x3 and no apparent distress Assessment & Plan Assessment/Plan (1) Osteomyelitis of ankle or foot, right, acute: (2) Cellulitis of right lower limb: (3) Non-pressure chronic ulcer of other part of right foot with necrosis of muscle: (4) Diabetes mellitus with diabetic polyneuropathy: (5) Type 2 diabetes mellitus with foot ulcer: PLAN: Plan Re-evaluation performed. Reviewed diagnostic data. Right foot xrays reviewed, reviewed MRI which showed evidence c/w osteomyelitis to the 1st toe proximal phalanx and 1st metatarsal. Given the findings 1st ray amputation has been recommended - discussed this with patient. Reviewed rationale of this with patient, however he relates he is not going to agree to amputation at this time. Clinically the foot is stable.. We will need to continue to monitor this. A culture has been obtained - reviewed available results - Dr. Castillo/ID on consult - patient on Vanc and Zosyn at this time. Keep ulcer site offloaded. Dressing changes: Betadine, gauze, kerlix and paola dressing for now. Ordered LEAS for further evaluation of LE arterial flow, there is no evidence of acute ischemia - there is noted to be diminished TBI - consider vascular specialist consult. Podiatry will continue to follow.
[2022-10-08 07:15] LABS: Anion Gap 7 (5-15); BUN 18 mg/dL (7-18); BUN/Creat Ratio 11.8 RATIO (10-20); Chloride 106 mmol/L (98-107); Creatinine, Serum 1.53 mg/dL (0.70-1.30); EST Glomerular Filtration Rate 49 mL/min (>60); Est Glom Filt Rate - Afr Amer 59 mL/min (>60); Estimated Creatinine Clearance 51.95 ml/min; Glucose 144 mg/dL (74-106); Potassium 3.9 mmol/L (3.5-5.1); Sodium Level 138 mmol/L (136-145)
[2022-10-08 07:21] VITALS: O2SAT 97
--- NOTE | 2022-10-08 07:22 | PN.HOSP_ITS ---
Subjective Subjective No new events. Patient still declining surgery at this time. Expressed understanding that infection could get worse. Objective Data Objective Data Vital Signs: Vital Signs Temp Pulse Resp BP Pulse Ox O2 Del Method O2 Flow Rate 37.0 C 80 18 134/64 H 97 Bi-pap 1 10/08/22 04:07 10/08/22 04:07 10/08/22 04:07 10/08/22 04:07 10/08/22 07:21 10/08/22 07:21 10/06/22 10:00 FiO2 21 10/08/22 07:21 Oxygen Flow Rate (L/min) 1 Oxygen Delivery Method Bi-pap Weight: 159.3 kg Body Mass Index (BMI) 48.9 Intake & Output: Intake and Output for Last 24 Hours 10/06/22 10/07/22 10/08/22 23:59 23:59 23:59 Intake Total 719.58 / 719.58 2400.00 / 2400.00 50 / 50 Output Total 1390 / 1390 Balance 719.58 / 719.58 1010.00 / 1010.00 50 / 50 Lab / Micro Data Result Diagrams: 10/08/22 06:24 10/08/22 06:24 Labs: Laboratory Results - last 24 hr 10/07/22 07:59: POC Glucose 120 H 10/07/22 12:01: POC Glucose 118 H 10/07/22 16:11: POC Glucose 134 H 10/07/22 22:52: POC Glucose 158 H 10/08/22 06:24: WBC 11.9 H, RBC 4.40 L, Hgb 12.6 L, Hct 39.3 L, MCV 89.3, MCH 28.6, MCHC 32.1, RDW Std Deviation 49.0 H, RDW Coeff of Jose 14.9 H, Plt Count 304, MPV 10.6, Immature Gran % (Auto) 0.600, Neut % (Auto) 65.2, Lymph % (Auto) 17.8 L, [place] % (Auto) 8.7, Eos % (Auto) 6.9 H, Baso % (Auto) 0.8, Absolute Neuts (auto) 7.8 H, Absolute Lymphs (auto) 2.12, Nucleated RBC % 0 10/08/22 06:24: Sodium 138, Potassium 3.9, Chloride 106, Carbon Dioxide 25.0, Anion Gap 7, BUN 18, Creatinine 1.53 H, Estim Creat Clear Calc 51.95, Est GFR (MDRD) Af Amer 59 L, Est GFR (MDRD) Non-Af 49 L, BUN/Creatinine Ratio 11.8, Glucose 144 H, Calcium 9.0 Micro: Microbiology 10/05/22 16:01 Wound Drainage - Other Gram Stain - Final 10/05/22 16:01 Wound Drainage - Other Wound Culture - Preliminary Enterococcus faecalis Gram negative steph Physical Exam Const alert Constitutional Narrative: On CPAP Extremity Extremity Narrative: Right leg wrapped, did not remove. Assessment & Plan Assessment/Plan (1) Osteomyelitis of ankle or foot, right, acute: PLAN: MRI showed osteomyelitis of the first metatarsal. Seen by podiatry who recommended amputation. Patient decide Patient with history of chronic ulcer Known history of diabetes complicated by polyneuropathy Started on IV vancomycin and Zosyn MRI of the foot shows right first MTP osteomyelitis. Patient at this time is declined surgery due to concerns about need for further surgeries including amputation. Is explained to him that this may lead to worsening infection despite antibiotics which may eventually lead to that. Discussed with the patient about the need for IV antibiotics. He seemed inclined towards but did not fully commit to that. Still waiting on cultures which are thus far showing gram-positive cocci and gram-negative rods. Infectious disease following PLAN: Plan Chronic conditions: * Hypertension, stable, continue Coreg, lisinopril/hydrochlorothiazide * HLP: continue statin * Type 2 DM, insulin-dependent, continue home insulin regimen, Continue on insulin sliding scale blood glucose checks * Hypothyroidism, continue Synthroid * Anxiety/depression, continue duloxetine DVT PPx-Lovenox SQ twice daily Disposition: Pending culture results. We will order PICC line. Patient is okay with continuing with IV antibiotics. Greater than 25 minutes of which greater than 50% of time was counseling the patient at bedside about his foot, continue to recommend surgery but expressed that the decision is ultimately his in regards to proceeding with surgery or not. Explained to him that this is going to be an evolving process depending on how things progress or regress during his treatment. Charges/Coding Visit Charges Inpatient E&M: 31347 Subs Hosp L2
[2022-10-08 08:00] VITALS: BP 133/78; PULSE 64; RESP 16; TEMP 37; O2SAT 100
[2022-10-08] MEDS: Carvedilol 12.5 MG Tablet PO ×2 (08:26→17:06)
[2022-10-08] MEDS: Tolterodine Tartrate 2 MG CAP.SA PO (08:27)
[2022-10-08] MEDS: Lisinopril 10 MG Tablet PO (08:28)
[2022-10-08] MEDS: Pantoprazole Sodium 40 MG Tablet PO ×2 (08:28→22:45)
[2022-10-08] MEDS: Aspirin 81 MG TAB.CHEW PO (08:28)
[2022-10-08] MEDS: Pramipexole Di-HCl 0.125 MG Tablet PO ×2 (08:28→22:45)
[2022-10-08] MEDS: hydroCHLOROthiazide 12.5mg 12.5 MG PO (08:28)
[2022-10-08] MEDS: Multivitamins,Therapeutic Tablet 1 TABLET PO (08:28)
[2022-10-08] MEDS: DULoxetine Hcl 60 MG Capsule PO (08:29)
[2022-10-08] MEDS: Clopidogrel Bisulfate 75 MG Tablet PO (08:29)
[2022-10-08] MEDS: Enoxaparin 40 MG/0.4 ML Syringe SC ×2 (08:29→22:45)
[2022-10-08] MEDS: Insulin Glargine-YFGN 100 UNIT/ML Pen 60 UNIT SC (08:30)
[2022-10-08] MEDS: buPROPion (SR) 150 MG Tablet.SA PO ×2 (08:32→22:45)
--- NOTE | 2022-10-08 09:26 | CASEMGMT ---
Discharge [employer] MILENA reached out. Pre-cert is still pending at this moment. Joyce DOHERTY [employer] Supervisor
[2022-10-08 09:40] LABS: Bedside Glucose 154 mg/dL (74-106)
--- NOTE | 2022-10-08 09:59 | PCM.PN.ID ---
Physical Exam Narrative Feeling better, some intermittent loose stool. No fever. Const alert and no apparent distress Resp normal air movement and clear to auscultation bilaterally Cardio regular rate and regular rhythm GI soft to palpation, non-tender and non-distended Skin Skin Narrative: R foot wrapped ID ID: Route of nutrition/ use of supplements: [] Nutritional Intake: [] IV Site: [] Abreu Catheter: [] Assessment & Plan Assessment/Plan (1) Osteomyelitis of ankle or foot, right, acute: PLAN: Wound cx with staph aureus, GPR, and GNR. MRI showed osteo. Pt considering amputation. Cont empiric vanc/zosyn. Will follow (2) Diabetes mellitus with diabetic polyneuropathy:
[2022-10-08 11:55] LABS: Bedside Glucose 142 mg/dL (74-106)
[2022-10-08 13:00] VITALS: PULSE 63
[2022-10-08 14:00] VITALS: BP 141/57; PULSE 62; RESP 16; TEMP 36.7; O2SAT 99
--- NOTE | 2022-10-08 16:33 | CASEMGMT ---
Social Work SW received call from [facility] that pt has services. Pt's primary care coordinator is Kristina Redding ([phone]). Pt has Aid services through [facility] for 3 hours. [facility] updated that pt plan is to discharge to [facility]. SW will faxed discharge summary at time of discharge. ATUL Krause
[2022-10-08 17:25] LABS: Bedside Glucose 121 mg/dL (74-106)
[2022-10-08 20:04] LABS: Vancomycin, Trough Level 25.5 ug/mL (5.0-15.0)
--- NOTE | 2022-10-08 20:39 | PCM.RX.CS ---
Consult Pharmacy has been consulted to manage selected antiobiotic: Vancomycin Type of Consult: Follow-up Prior Doses of Antibiotics Received/Current Regimen: Medications Vancomycin HCl 1,500 mg/ (Sodium Chloride) 530 mls @ 250 mls/hr IV Q12H FAITH Last Admin: 10/08/22 11:34 Dose: Infused Labs: Sodium 138 mmol/L (136-145) 10/08/22 06:24 Potassium 3.9 mmol/L (3.5-5.1) 10/08/22 06:24 Chloride 106 mmol/L (98-107) 10/08/22 06:24 Carbon Dioxide 25.0 mmol/L (21.0-32.0) 10/08/22 06:24 Anion Gap 7 (5-15) 10/08/22 06:24 BUN 18 mg/dL (7-18) 10/08/22 06:24 Creatinine 1.53 mg/dL (0.70-1.30) H 10/08/22 06:24 Est GFR (MDRD) Af Amer 59 mL/min (>60) L 10/08/22 06:24 Est GFR (MDRD) Non-Af 49 mL/min (>60) L 10/08/22 06:24 BUN/Creatinine Ratio 11.8 RATIO (10-20) 10/08/22 06:24 Glucose 144 mg/dL (74-106) H 10/08/22 06:24 Vancomycin Trough 25.5 ug/mL (5.0-15.0) H 10/08/22 19:27 Random Vancomycin 17.2 ug/mL (0.0-15.0) H 10/07/22 05:54 Microbiology: Microbiology 10/05/22 16:01 Wound Drainage - Other Gram Stain - Final 10/05/22 16:01 Wound Drainage - Other Wound Culture - Preliminary Enterococcus faecalis Gram negative steph Gram positive steph 10/05/22 16:01 Wound Drainage - Other Anaerobic Culture - Preliminary Weight used for dosin kg Goal Trough: 15-20 mcg/mL Pharmacy Plan for Drug Dosing: Trough above goal, 11 hour level. Hold and re-check level in the morning. Pharmacy Service will continue to monitor and adjust dosing as required. Follow-Up Labs: Trough Vancomycin - Random 10/09 @ 0600
[2022-10-08 22:22] VITALS: BP 108/68; PULSE 79; RESP 18; TEMP 37.6; O2SAT 95
[2022-10-08] MEDS: Atorvastatin Calcium 80 MG Tablet PO (22:45)
[2022-10-08] MEDS: 0.9% Saline Lock 10 ML Syringe IV (22:49)
[2022-10-08 23:21] LABS: Bedside Glucose 110 mg/dL (74-106)
[2022-10-09] VITALS (7 sets, daily range): BP systolic 113–135; BP diastolic 58–72; PULSE 73–83; RESP 16–18; TEMP 36.7–37.2; O2SAT 96–99
[2022-10-09] MEDS: 0.9% Saline Lock 10 ML Syringe IV (06:05)
[2022-10-09] MEDS: Levothyroxine 75 MCG Tablet 225 MCG PO (06:05)
[2022-10-09 06:16] LABS: Absolute Lymphocyte Count 2.33 X10^3/uL (0.83-4.51); Absolute Neutrophil Count 9.5 X10^3/uL (2.0-7.7); Basophil% 0.7 % (0-1); Eosinophil# 0.92 X10^3/uL; Eosinophils% 6.5 % (0-5); Hematocrit 40.5 % (40-54); Hemoglobin 12.8 g/dL (13.0-16.5); Lymphocyte # 2.33 X10^3/ul (0.83-4.51); Lymphocyte % 16.4 % (19-41); Mean Corp Hgb Conc 31.6 g/dL (32-36); Mean Corpuscular Hgb 28.1 pg (27.0-32.0); Mean Corpuscular Volume 88.8 fL (80-94); Mean Platelet Vol. 10.1 fl (6.2-12.0); Monocyte# 1.28 X10^3/uL; NRBC Flagged by Analyzer 0 % (0-5); Neutrophil # 9.53 X10^3/uL (2.7-7.7); Neutrophil % 66.8 % (47-70); Platelet Count 302 K/mm3 (150-450); RBC Distribution Width CV 15.2 % (11.6-14.6); RBC Distribution Width SD 49.4 fl (35.1-43.9); Red Blood Count 4.56 M/mm3 (4.6-6.2); White Blood Count 14.3 K/mm3 (4.4-11.0)
[2022-10-09 06:57] LABS: Anion Gap 7 (5-15); BUN 16 mg/dL (7-18); BUN/Creat Ratio 9.8 RATIO (10-20); Calcium,Total 9.2 mg/dL (8.5-10.1); Chloride 107 mmol/L (98-107); Creatinine, Serum 1.64 mg/dL (0.70-1.30); EST Glomerular Filtration Rate 45 mL/min (>60); Est Glom Filt Rate - Afr Amer 55 mL/min (>60); Estimated Creatinine Clearance 48.47 ml/min; Glucose 137 mg/dL (74-106); Potassium 4.2 mmol/L (3.5-5.1); Sodium Level 138 mmol/L (136-145)
--- NOTE | 2022-10-09 07:07 | PN_ITS ---
Subjective Subjective Patient was seen this morning for follow up on right foot. He is resting in bed. WBC is noted to be elevated today. Had temp of 99.6F overnight. He denies any fever, chills, nausea or vomiting at this time. Objective Data Objective Data Vital Signs: Vital Signs Temp Pulse Resp BP Pulse Ox O2 Del Method O2 Flow Rate 98.8 F 77 18 113/58 L 97 Room Air 1 10/09/22 03:01 10/09/22 03:01 10/09/22 03:01 10/09/22 03:01 10/09/22 03:01 10/09/22 03:01 10/06/22 10:00 FiO2 21 10/08/22 07:21 Oxygen Flow Rate (L/min) 1 Oxygen Delivery Method Room Air Weight: 159.3 kg Body Mass Index (BMI) 48.9 Intake & Output: Intake and Output for Last 24 Hours 10/07/22 10/08/22 10/09/22 23:59 23:59 23:59 Intake Total 2400.00 / 2400.00 299 / 299 Output Total 1390 / 1390 Balance 1010.00 / 1010.00 299 / 299 Lab / Micro Data Result Diagrams: 10/09/22 06:10 10/09/22 06:10 Labs: Laboratory Results - last 24 hr 10/08/22 06:24: Sodium 138, Potassium 3.9, Chloride 106, Carbon Dioxide 25.0, Anion Gap 7, BUN 18, Creatinine 1.53 H, Estim Creat Clear Calc 51.95, Est GFR (MDRD) Af Amer 59 L, Est GFR (MDRD) Non-Af 49 L, BUN/Creatinine Ratio 11.8, Glucose 144 H, Calcium 9.0 10/08/22 08:21: POC Glucose 154 H 10/08/22 11:33: POC Glucose 142 H 10/08/22 17:02: POC Glucose 121 H 10/08/22 19:27: Vancomycin Trough 25.5 H 10/08/22 22:29: POC Glucose 110 H 10/09/22 06:10: WBC 14.3 H, RBC 4.56 L, Hgb 12.8 L, Hct 40.5, MCV 88.8, MCH 28.1, MCHC 31.6 L, RDW Std Deviation 49.4 H, RDW Coeff of Jose 15.2 H, Plt Count 302, MPV 10.1, Immature Gran % (Auto) 0.600, Neut % (Auto) 66.8, Lymph % (Auto) 16.4 L, [place] % (Auto) 9.0, Eos % (Auto) 6.5 H, Baso % (Auto) 0.7, Absolute Neuts (auto) 9.5 H, Absolute Lymphs (auto) 2.33, Nucleated RBC % 0 10/09/22 06:10: Sodium 138, Potassium 4.2, Chloride 107, Carbon Dioxide 24.0, Anion Gap 7, BUN 16, Creatinine 1.64 H, Estim Creat Clear Calc 48.47, Est GFR (MDRD) Af Amer 55 L, Est GFR (MDRD) Non-Af 45 L, BUN/Creatinine Ratio 9.8 L, Glucose 137 H, Calcium 9.2 Micro: Microbiology 10/05/22 16:01 Wound Drainage - Other Gram Stain - Final 10/05/22 16:01 Wound Drainage - Other Wound Culture - Preliminary Enterococcus faecalis Gram negative steph Gram positive steph 10/05/22 16:01 Wound Drainage - Other Anaerobic Culture - Preliminary Physical Exam Narrative Left BKA. Right foot is large ulceration to the medial 1st MTPJ which probes to the bone, there is significant fibrotic tissue but there is granular tissue to the margins, skin edges are viable and intact, there is less cellulitis around the wound - continues to improve, there is less purulent drainage present from the site; no crepitus, no blistering, no fluctuance, no visible abscess; no other open lesions; CFT < 2 seconds to all toes with no evidence of acute ischemia, no POP or pain on ROM to the foot or ankle, peripheral neuropathy is present. Const alert, oriented x3 and no apparent distress Assessment & Plan Assessment/Plan (1) Osteomyelitis of ankle or foot, right, acute: (2) Cellulitis of right lower limb: (3) Non-pressure chronic ulcer of other part of right foot with necrosis of muscle: (4) Diabetes mellitus with diabetic polyneuropathy: (5) Type 2 diabetes mellitus with foot ulcer: PLAN: Plan Re-evaluation performed. Reviewed diagnostic data. Right foot xrays reviewed, reviewed MRI which showed evidence c/w osteomyelitis to the 1st toe proximal phalanx and 1st metatarsal. Given the findings 1st ray amputation has been recommended - discussed this with patient. Reviewed rationale of this with patient, however he relates he is not going to agree to amputation at this time. Clinically the foot is stable. We will need to continue to monitor this. A culture has been obtained - reviewed available results (Enterococcus, gram neg stehp, and gram positive steph - Dr. Castillo/ID on consult - patient on Vanc and Zosyn at this time. Keep ulcer site offloaded. Dressing changes: Betadine, gauze, Kerlix and paola dressing for now. Ordered LEAS for further evaluation of LE arterial flow, there is no evidence of acute ischemia - there is noted to be diminished TBI - consider vascular specialist consult. Podiatry will continue to follow.
[2022-10-09 07:09] LABS: Vancomycin, Random Level 19.6 ug/mL (0.0-15.0)
--- NOTE | 2022-10-09 07:25 | PN.HOSP_ITS ---
Subjective Subjective Doing well. PICC placed. Objective Data Objective Data Vital Signs: Vital Signs Temp Pulse Resp BP Pulse Ox O2 Del Method O2 Flow Rate 37.1 C 77 18 113/58 L 97 Room Air 1 10/09/22 03:01 10/09/22 03:01 10/09/22 03:01 10/09/22 03:01 10/09/22 03:01 10/09/22 03:01 10/06/22 10:00 FiO2 21 10/08/22 07:21 Oxygen Flow Rate (L/min) 1 Oxygen Delivery Method Room Air Weight: 159.3 kg Body Mass Index (BMI) 48.9 Intake & Output: Intake and Output for Last 24 Hours 10/07/22 10/08/22 10/09/22 23:59 23:59 23:59 Intake Total 2400.00 / 2400.00 / 299 / 299 Output Total 1390 / 1390 Balance 1010.00 / 1010.00 299 / 299 Lab / Micro Data Result Diagrams: 10/09/22 06:10 10/09/22 06:10 Labs: Laboratory Results - last 24 hr 10/08/22 08:21: POC Glucose 154 H 10/08/22 11:33: POC Glucose 142 H 10/08/22 17:02: POC Glucose 121 H 10/08/22 19:27: Vancomycin Trough 25.5 H 10/08/22 22:29: POC Glucose 110 H 10/09/22 06:10: WBC 14.3 H, RBC 4.56 L, Hgb 12.8 L, Hct 40.5, MCV 88.8, MCH 28.1, MCHC 31.6 L, RDW Std Deviation 49.4 H, RDW Coeff of Jose 15.2 H, Plt Count 302, MPV 10.1, Immature Gran % (Auto) 0.600, Neut % (Auto) 66.8, Lymph % (Auto) 16.4 L, [place] % (Auto) 9.0, Eos % (Auto) 6.5 H, Baso % (Auto) 0.7, Absolute Neuts (auto) 9.5 H, Absolute Lymphs (auto) 2.33, Nucleated RBC % 0 10/09/22 06:10: Sodium 138, Potassium 4.2, Chloride 107, Carbon Dioxide 24.0, Anion Gap 7, BUN 16, Creatinine 1.64 H, Estim Creat Clear Calc 48.47, Est GFR (MDRD) Af Amer 55 L, Est GFR (MDRD) Non-Af 45 L, BUN/Creatinine Ratio 9.8 L, Glucose 137 H, Calcium 9.2 10/09/22 06:10: Random Vancomycin 19.6 H Micro: Microbiology 10/05/22 16:01 Wound Drainage - Other Gram Stain - Final 10/05/22 16:01 Wound Drainage - Other Wound Culture - Preliminary Enterococcus faecalis Gram negative steph Gram positive steph 10/05/22 16:01 Wound Drainage - Other Anaerobic Culture - Preliminary Physical Exam Const alert and no apparent distress HEENT head/scalp atraumatic and moist oral mucous membranes Extremity Extremity Narrative: PICC in LUE. Assessment & Plan Assessment/Plan (1) Osteomyelitis of ankle or foot, right, acute: PLAN: MRI showed osteomyelitis of the first metatarsal. Seen by podiatry who recommended amputation. Patient decide Patient with history of chronic ulcer Known history of diabetes complicated by polyneuropathy Started on IV vancomycin and Zosyn MRI of the foot shows right first MTP osteomyelitis. Patient at this time is declined surgery due to concerns about need for further surgeries including amputation. Is explained to him that this may lead to worsening infection despite antibiotics which may eventually lead to that. Discussed with the patient about the need for IV antibiotics. He seemed inclined towards but did not fully commit to that. Still waiting on cultures which are thus far showing gram-positive cocci and gram-negative rods. Infectious disease following PLAN: Plan Chronic conditions: * Hypertension, stable, continue Coreg, lisinopril/hydrochlorothiazide * HLP: continue statin * Type 2 DM, insulin-dependent, continue home insulin regimen, Continue on in sulin sliding scale blood glucose checks * Hypothyroidism, continue Synthroid * Anxiety/depression, continue duloxetine DVT PPx-Lovenox SQ twice daily Disposition: Pending culture results. We will order PICC line. Patient is okay with continuing with IV antibiotics. Plan for SNF with IV abx. Cx not finalized, but pt will be discharged with Vanc and pip/tazo.
--- NOTE | 2022-10-09 09:23 | CASEMGMT ---
Discharge Lead Pressman [employer] MILENA reached out. Pre-cert has been obtained Joyce DOHERTY Director [employer]
[2022-10-09] MEDS: Aspirin 81 MG TAB.CHEW PO (09:41)
[2022-10-09] MEDS: Carvedilol 12.5 MG Tablet PO ×2 (09:42→18:35)
[2022-10-09] MEDS: hydroCHLOROthiazide 12.5mg 12.5 MG PO (09:42)
[2022-10-09] MEDS: buPROPion (SR) 150 MG Tablet.SA PO (09:43)
[2022-10-09] MEDS: Multivitamins,Therapeutic Tablet 1 TABLET PO (09:43)
[2022-10-09] MEDS: Tolterodine Tartrate 2 MG CAP.SA PO (09:44)
[2022-10-09] MEDS: Clopidogrel Bisulfate 75 MG Tablet PO (09:44)
[2022-10-09] MEDS: DULoxetine Hcl 60 MG Capsule PO (09:44)
[2022-10-09] MEDS: Pramipexole Di-HCl 0.125 MG Tablet PO (09:44)
[2022-10-09] MEDS: Lisinopril 10 MG Tablet PO (09:44)
[2022-10-09] MEDS: Pantoprazole Sodium 40 MG Tablet PO (09:44)
[2022-10-09] MEDS: Enoxaparin 40 MG/0.4 ML Syringe SC (09:47)
--- NOTE | 2022-10-09 10:01 | PCM.RX.CS ---
Consult Pharmacy has been consulted to manage selected antiobiotic: Vancomycin Type of Consult: Follow-up Suspected Infection: Osteomyelitis Prior Doses of Antibiotics Received/Current Regimen: the patient was most recently on vanc 1500mg IV q12h until that was held last night due to a high trough Labs: Sodium 138 mmol/L (136-145) 10/09/22 06:10 Potassium 4.2 mmol/L (3.5-5.1) 10/09/22 06:10 Chloride 107 mmol/L (98-107) 10/09/22 06:10 Carbon Dioxide 24.0 mmol/L (21.0-32.0) 10/09/22 06:10 Anion Gap 7 (5-15) 10/09/22 06:10 BUN 16 mg/dL (7-18) 10/09/22 06:10 Creatinine 1.64 mg/dL (0.70-1.30) H 10/09/22 06:10 Est GFR (MDRD) Af Amer 55 mL/min (>60) L 10/09/22 06:10 Est GFR (MDRD) Non-Af 45 mL/min (>60) L 10/09/22 06:10 BUN/Creatinine Ratio 9.8 RATIO (10-20) L 10/09/22 06:10 Glucose 137 mg/dL (74-106) H 10/09/22 06:10 Vancomycin Trough 25.5 ug/mL (5.0-15.0) H 10/08/22 19:27 Random Vancomycin 19.6 ug/mL (0.0-15.0) H 10/09/22 06:10 Microbiology: Microbiology 10/05/22 16:01 Wound Drainage - Other Gram Stain - Final 10/05/22 16:01 Wound Drainage - Other Wound Culture - Preliminary Enterococcus faecalis Gram negative steph Corynebacterium amycolatum Weight used for dosin.3 kg Estimated Creatinine Clearance: 70ml/min Goal Trough: 15-20 mcg/mL Pharmacy Plan for Drug Dosing: The vanc random level drawn at 06:10 today was 19.6. It has been approximately 22 hours since the last dose of 1500mg. Since it is back below 20, recommend to resume dosing at 1500mg IV q24h. Will order a trough before the 3rd dose per protocol. Will need to continue to monitor renal function as the SCr has gone up a little more today to 1.64 from 1.53 yesterday (was 1.22 on 10/05). The patient's CrCl of 70ml/min was calculated using an adjusted body weight. Pharmacy Service will continue to monitor and adjust dosing as required. Follow-Up Labs: Trough Vancomycin Labs to be done on [date and time ordered]: 10/11/22 09:30
[2022-10-09 12:35] LABS: Bedside Glucose 143 mg/dL (74-106)
--- NOTE | 2022-10-09 13:30 | CASEMGMT ---
Social Work Precert has been obtained and pt can be discharged to [facility]. Physician updated and pt not medically ready at this time. Pt notified that precert has been obtained and he can discharge to [facility] when medically ready. Pt states he will update family. Phone call to Malka at [facility] and notified pt will not discharge today. Precert is good through 10/22. Green sheet placed on chart in the event of weekend discharge. Plan: [facility], when medically ready ATUL Krause
--- NOTE | 2022-10-09 13:36 | PN.ID_ITS ---
Physical Exam Narrative Feeling better, no fever, no n/v/d. Const alert and no apparent distress Resp normal air movement and clear to auscultation bilaterally Cardio regular rate and regular rhythm GI soft to palpation, non-tender and non-distended Skin Skin Narrative: R foot wrapped ID ID: Route of nutrition/ use of supplements: [] Nutritional Intake: [] IV Site: [] Abreu Catheter: [] Assessment & Plan Assessment/Plan (1) Osteomyelitis of ankle or foot, right, acute: PLAN: Wound cx with enterococcus, coryne, and GNR. MRI showed osteo. Cont vanc/zosyn. Stop date 11/16/22 with weekly labs. ID followup in 2 weeks. Will follow, d/w primary team and machine adjuster leader case trim (2) Diabetes mellitus with diabetic polyneuropathy:
--- NOTE | 2022-10-09 14:08 | TREXTCAR_ITS ---
Diet Diet Order/Speech Therapy: 10/06/22 17:33 Diet: Cardiac: Calorie-Controlled Is pt able to select menu?: Yes How many daily calories?: 2200 calorie Wound(s) r foot: Wound Type: Neuropathic/Diabetic Foot Ulcer right medial foot: Wound Type: Neuropathic/Diabetic Foot Ulcer Dressing Change: betadine with dry dressing Therapies Weight Bearing: heel weight-bearing Extremity Affected:: Right Lower Physical Therapy: Eval and Treat Occupational Therapy: Eval and Treat Problem/Diagnosis (1) Osteomyelitis of ankle or foot, right, acute: Status: Acute Code(s): M86.171 - Other acute osteomyelitis, right ankle and foot Plan: MRI showed osteomyelitis of the first metatarsal. Seen by podiatry who recommended amputation. Patient decide Patient with history of chronic ulcer Known history of diabetes complicated by polyneuropathy Started on IV vancomycin and Zosyn MRI of the foot shows right first MTP osteomyelitis. Patient at this time is declined surgery due to concerns about need for further surgeries including amputation. Is explained to him that this may lead to worsening infection despite antibiotics which may eventually lead to that. Discussed with the patient about the need for IV antibiotics. He seemed inclined towards but did not fully commit to that. Still waiting on cultures which are thus far showing gram-positive cocci and gram-negative rods. Infectious disease following Plan Chronic conditions: * Hypertension, stable, continue Coreg, lisinopril/hydrochlorothiazide * HLP: continue statin * Type 2 DM, insulin-dependent, continue home insulin regimen, Continue on insulin sliding scale blood glucose checks * Hypothyroidism, continue Synthroid * Anxiety/depression, continue duloxetine DVT PPx-Lovenox SQ twice daily Disposition: Pending culture results. We will order PICC line. Patient is okay with continuing with IV antibiotics. Plan for SNF with IV abx. Cx not finalized, but pt will be discharged with Vanc and pip/tazo. Allergies/Procedures Done in Hospital Allergies No Known Allergies Allergy (Verified 10/05/22 14:48) Procedures: PICC line placement Type of Care/Length of Stay Estimated LOS: Convalescent Care Less Than 30 days Type of Care Needed: Skilled Rehab Potential: Fair Prognosis: Good Additional Orders/Day of Discharge Day of Discharge: 10/09/22 Dietary and Speech Recommendations Dietitian Recommendations/Changes: RD will order 2200kcal Cardiac diet to manage medical conditions. RD will discontinue Glucerna supplements. Discharge Plan Admission Admit Date/Time: 10/05/22 18:05 Primary Reason for Your Visit: right 1st MTP osteomyelitis. Attending Provider: Mehdi Gaines Primary Care Provider: SARAH SCHAEFER Consulting Providers: Jyoti Woo ; Jimi Quiles ; Brad Castillo Discharge Orders/Prescriptions Prescriptions: New piperacillin-tazobactam 3.375 gram recon soln 3.375 g IV Q8H 38 Days Qty: 114 0RF Rx Instructions: stop date 11/16/22. Dx: foot osteo. Weekly bmp, cbc, esr, and vanc trough. Fax to [phone] vancomycin 1.5 gram recon soln 1.5 g IV Q24H 38 Days Qty: 38 0RF Rx Instructions: stop date 11/16/22. Dx: foot osteo. Weekly bmp, cbc, esr, and vanc trough. Fax to [phone] acetaminophen [Tylenol] 325 mg Tablet 650 mg PO Q6H PRN PRN (Reason: Pain 1-10 Or Fever>100.7) Qty: 30 0RF enoxaparin 40 mg/0.4 mL Syringe 40 mg subcut BID Qty: 0 0RF Continued fluticasone propionate [Flonase Allergy Relief] 50 mcg/actuation spray,suspension 2 spray INTRANASAL DAILY PRN PRN (Reason: Sinus Congestion) ropinirole 0.25 MG tablet 0.25 mg PO BID Label Comments: restless legs omeprazole 40 MG capsule,delayed release(DR/EC) 40 mg PO BID duloxetine 60 MG capsule,delayed release(DR/EC) 60 mg PO DAILY bupropion HCl 150 MG tablet sustained-release 12 hr 150 mg PO BID Label Comments: depression levothyroxine 75 MCG tablet 225 mcg PO DAILY@0600 Label Comments: thyroid insulin regular hum U-500 conc 500 UNITS/ML insulin pen 30 units SC TID ergocalciferol (vitamin D2) [Vitamin D2] 1,250 mcg (50,000 unit) capsule 1 PO QWEEK Rx Instructions: Trulicity 1.5 mg/0.5 mL pen injector SUBCUT QWEEK Rx Instructions: carvedilol 12.5 mg Tablet 12.5 mg PO BID 30 Days Qty: 60 0RF albuterol sulfate [ProAir HFA] 90 mcg/actuation HFA aerosol inhaler 2 inh inhalation Q4H PRN (Reason: shortness of breath or wheezing) Qty: 6.7 0RF tolterodine 2 MG capsule,extended release 24hr 2 mg PO DAILY atorvastatin 80 mg tablet 80 mg PO QHS clopidogrel 75 mg tablet 75 mg PO DAILY aspirin 81 mg tablet,chewable 81 mg PO BREAKFAST mupirocin 2 % ointment 1 applic NASAL BID Protocol: *Topical Application Instructions APPLICATION INSTRUCTIONS: see above lisinopril-hydrochlorothiazide 10-12.5 mg tablet 1 tab PO DAILY Mucus Relief ER 1,200 mg tablet extended release 12hr 1,200 mg PO QHS multivitamin with folic acid 1 TABLET tablet 1 tablet PO DAILYCM insulin glargine-yfgn 100 unit/mL (3 mL) insulin pen 60 unit subcut BID Rx Instructions: Please continue to monitor BS, may need to readjust pending trend at home. Referrals / Follow Up: Jimi Quiles DPM [Med Staff - Active Staff] - Within 2 Weeks Brad Castillo MD [Med Staff - Active Staff] - Within 2 Weeks SARAH SCHAEFER NP-C [Primary Care Provider] - Within 2 Weeks Disposition Disposition (needs filled in before D/C Order can be placed): Nursing Home Facility
--- NOTE | 2022-10-09 14:14 | DS.PCM_ITS ---
Providers Date of Admission: 10/05/22 Primary Care Physician: EASTON GILLIS Consultations 10/05/22 20:57 Consult: Infectious Disease Routine Consulting Provider: Brad Castillo Reason for Consult: Right foot osteomyelitis EMERGENT Consult: No Notified: Yes Date Notified: 10/06/22 Time Notified: 08:28 Method of Notification: Answering Service Consult: Podiatry Routine Consulting Provider: Jimi Quiles Reason for Consult: Right foot ulcer/osteomyelitis EMERGENT Consult: No Notified: Yes Date Notified: 10/06/22 Time Notified: 07:26 Method of Notification: seeing pt in room 10/06/22 08:12 Consult: Onc/Wound/executive account manager Routine Comment: Reason for Consult:: right foot wound Reason For Visit: RIGHT FOOT ULCER/OSTEOMYELITIS Diagnosis Discharge Diagnosis (1) Osteomyelitis of ankle or foot, right, acute: Status: Acute Code(s): M86.171 - Other acute osteomyelitis, right ankle and foot Plan: MRI showed osteomyelitis of the first metatarsal. Seen by podiatry who recommended amputation. Patient decide Patient with history of chronic ulcer Known history of diabetes complicated by polyneuropathy Started on IV vancomycin and Zosyn MRI of the foot shows right first MTP osteomyelitis. Patient at this time is declined surgery due to concerns about need for further surgeries including amputation. Is explained to him that this may lead to worsening infection despite antibiotics which may eventually lead to that. Discussed with the patient about the need for IV antibiotics. He seemed inclined towards but did not fully commit to that. Still waiting on cultures which are thus far showing gram-positive cocci and gram-negative rods. Infectious disease following Plan Chronic conditions: * Hypertension, stable, continue Coreg, lisinopril/hydrochlorothiazide * HLP: continue statin * Type 2 DM, insulin-dependent, continue home insulin regimen, Continue on insulin sliding scale blood glucose checks * Hypothyroidism, continue Synthroid * Anxiety/depression, continue duloxetine DVT PPx-Lovenox SQ twice daily Disposition: Pending culture results. We will order PICC line. Patient is okay with continuing with IV antibiotics. Plan for SNF with IV abx. Cx not finalized, but pt will be discharged with Vanc and pip/tazo. Medications at Discharge Home Medications ropinirole 0.25 mg tablet 0.25 mg PO BID restless leg syndrome 08/17/16 fluticasone propionate 50 mcg/actuation nasal spray,suspension (Flonase Allergy Relief) 2 spray intranasal DAILY PRN PRN Sinus Congestion 02/14/18 bupropion HCl 150 mg tablet,12 hr sustained-release 150 mg PO BID DEPRESSION 03/21/20 duloxetine 60 mg capsule,delayed release 60 mg PO DAILY DEPRESSION 03/21/20 omeprazole 40 mg capsule,delayed release 40 mg PO BID GERD 03/21/20 levothyroxine 75 mcg tablet 225 mcg PO DAILY@0600 thyroid 04/21/20 insulin regular hum U-500 conc 500 unit/mL(3 mL) subcut pen 30 units subcut TID 11/02/20 dulaglutide 1.5 mg/0.5 mL subcutaneous pen injector (Trulicity) mg subcut QWEEK dm 06/09/22 ergocalciferol (vitamin D2) 1,250 mcg (50,000 unit) capsule (Vitamin D2) 1 PO QWEEK Check with primary doctor 06/09/22 albuterol sulfate 90 mcg/actuation aerosol inhaler (ProAir HFA) 2 inh inhalation Q4H PRN shortness of breath or wheezing #6.7 grams 06/13/22 carvedilol 12.5 mg tablet 12.5 mg PO BID 30 days #60 tabs 06/13/22 aspirin 81 mg chewable tablet 81 mg PO BREAKFAST heart health 10/05/22 atorvastatin 80 mg tablet 80 mg PO QHS cholesterol 10/05/22 clopidogrel 75 mg tablet 75 mg PO DAILY blood thinner 10/05/22 guaifenesin 1,200 mg tablet, extended release 12 hr (Mucus Relief ER) 1,200 mg PO QHS congesttion 10/05/22 insulin glargine-yfgn 100 unit/mL (3 mL) subcutaneous pen 60 unit subcut BID DM 10/05/22 lisinopril 10 mg-hydrochlorothiazide 12.5 mg tablet 1 tab PO DAILY bp 10/05/22 multivitamin with folic acid 400 mcg tablet 1 tablet PO DAILYCM supplement 10/05/22 mupirocin 2 % topical ointment 1 applic NASAL BID nose 10/05/22 tolterodine 2 mg capsule,extended release 24 hr 2 mg PO DAILY bladder 10/05/22 acetaminophen 325 mg tablet (Tylenol) 650 mg PO Q6H PRN PRN Pain 1-10 Or Fever>100.7 #30 tabs 10/09/22 enoxaparin 40 mg/0.4 mL subcutaneous syringe 40 mg (0.4 mL) subcut BID #0 mL 10/09/22 piperacillin-tazobactam 3.375 gram intravenous solution 3.375 g IV Q8H 38 days #114 ea 10/09/22 vancomycin 1.5 gram intravenous solution 1.5 g IV Q24H 38 days #38 ea 10/09/22 Hospital Course Operations None Procedures PICC line placement Summary of Care Provided Minutes Spent on Discharge: 32 Hospital Course: Jeniffer with ulcer on the right great foot. Found to have osteomyelitis. Patient declined surgery. Patient will continue with IV antibiotics. Patient anticipates that he may require amputation but would like to try to salvage it if possible. Patient will be discharged with vancomycin and Zosyn. Culture results are still pending but showing multiple organisms. Further antibiotics to be further modified by infectious disease upon discharge. Weight / BMI Weight Weight: 159.3 kg Body Mass Index (BMI) 48.9 ABG / Lab / Microbiology Data Result Diagrams: 10/09/22 06:10 10/09/22 06:10 Laboratory: Laboratory Results - last 24 hr 10/08/22 17:02: POC Glucose 121 H 10/08/22 19:27: Vancomycin Trough 25.5 H 10/08/22 22:29: POC Glucose 110 H 10/09/22 06:10: WBC 14.3 H, RBC 4.56 L, Hgb 12.8 L, Hct 40.5, MCV 88.8, MCH 28.1, MCHC 31.6 L, RDW Std Deviation 49.4 H, RDW Coeff of Jose 15.2 H, Plt Count 302, MPV 10.1, Immature Gran % (Auto) 0.600, Neut % (Auto) 66.8, Lymph % (Auto) 16.4 L, [place] % (Auto) 9.0, Eos % (Auto) 6.5 H, Baso % (Auto) 0.7, Absolute Neuts (auto) 9.5 H, Absolute Lymphs (auto) 2.33, Nucleated RBC % 0 10/09/22 06:10: Sodium 138, Potassium 4.2, Chloride 107, Carbon Dioxide 24.0, Anion Gap 7, BUN 16, Creatinine 1.64 H, Estim Creat Clear Calc 48.47, Est GFR (MDRD) Af Amer 55 L, Est GFR (MDRD) Non-Af 45 L, BUN/Creatinine Ratio 9.8 L, Glucose 137 H, Calcium 9.2 10/09/22 06:10: Random Vancomycin 19.6 H 10/09/22 12:05: POC Glucose 143 H Microbiology: Microbiology 10/05/22 16:01 Wound Drainage - Other Gram Stain - Final 10/05/22 16:01 Wound Drainage - Other Wound Culture - Preliminary Enterococcus faecalis Gram negative steph Corynebacterium amycolatum D/C Instructions Discharge Diet: 1999 Calorie Control Diet Meaningful Use Info Meaningful Use Diagnoses (Choose all that apply): None applicable Discharge Plan Admission Admit Date/Time: 10/05/22 18:05 Primary Reason for Your Visit: right 1st MTP osteomyelitis. Attending Provider: Mehdi Gaines Primary Care Provider: SARAH SCHAEFER Consulting Providers: Jyoti Woo ; Jimi Quiles ; Brad Castillo Discharge Orders/Prescriptions Prescriptions: New piperacillin-tazobactam 3.375 gram recon soln 3.375 g IV Q8H 38 Days Qty: 114 0RF Rx Instructions: stop date 11/16/22. Dx: foot osteo. Weekly bmp, cbc, esr, and vanc trough. Fax to [phone] vancomycin 1.5 gram recon soln 1.5 g IV Q24H 38 Days Qty: 38 0RF Rx Instructions: stop date 11/16/22. Dx: foot osteo. Weekly bmp, cbc, esr, and vanc trough. Fax to [phone] acetaminophen [Tylenol] 325 mg Tablet 650 mg PO Q6H PRN PRN (Reason: Pain 1-10 Or Fever>100.7) Qty: 30 0RF enoxaparin 40 mg/0.4 mL Syringe 40 mg subcut BID Qty: 0 0RF Continued fluticasone propionate [Flonase Allergy Relief] 50 mcg/actuation spray,suspension 2 spray INTRANASAL DAILY PRN PRN (Reason: Sinus Congestion) ropinirole 0.25 MG tablet 0.25 mg PO BID Label Comments: restless legs omeprazole 40 MG capsule,delayed release(DR/EC) 40 mg PO BID duloxetine 60 MG capsule,delayed release(DR/EC) 60 mg PO DAILY bupropion HCl 150 MG tablet sustained-release 12 hr 150 mg PO BID Label Comments: depression levothyroxine 75 MCG tablet 225 mcg PO DAILY@0600 Label Comments: thyroid insulin regular hum U-500 conc 500 UNITS/ML insulin pen 30 units SC TID ergocalciferol (vitamin D2) [Vitamin D2] 1,250 mcg (50,000 unit) capsule 1 PO QWEEK Rx Instructions: Trulicity 1.5 mg/0.5 mL pen injector SUBCUT QWEEK Rx Instructions: carvedilol 12.5 mg Tablet 12.5 mg PO BID 30 Days Qty: 60 0RF albuterol sulfate [ProAir HFA] 90 mcg/actuation HFA aerosol inhaler 2 inh inhalation Q4H PRN (Reason: shortness of breath or wheezing) Qty: 6.7 0RF tolterodine 2 MG capsule,extended release 24hr 2 mg PO DAILY atorvastatin 80 mg tablet 80 mg PO QHS clopidogrel 75 mg tablet 75 mg PO DAILY aspirin 81 mg tablet,chewable 81 mg PO BREAKFAST mupirocin 2 % ointment 1 applic NASAL BID Protocol: *Topical Application Instructions APPLICATION INSTRUCTIONS: see above lisinopril-hydrochlorothiazide 10-12.5 mg tablet 1 tab PO DAILY Mucus Relief ER 1,200 mg tablet extended release 12hr 1,200 mg PO QHS multivitamin with folic acid 1 TABLET tablet 1 tablet PO DAILYCM insulin glargine-yfgn 100 unit/mL (3 mL) insulin pen 60 unit subcut BID Rx Instructions: Please continue to monitor BS, may need to readjust pending trend at home. Referrals / Follow Up: Jimi Quiles DPM [Med Staff - Active Staff] - Within 2 Weeks Brad Castillo MD [Med Staff - Active Staff] - Within 2 Weeks SARAH SCHAEFER NP-C [Primary Care Provider] - Within 2 Weeks Disposition Disposition (needs filled in before D/C Order can be placed): [facility] Facility Charges/Coding Visit Charges Inpatient E&M: 20221 Disch Hosp
--- NOTE | 2022-10-09 15:40 | CASEMGMT ---
Addendum entered by Rebecca Stephens 10/09/22 15:46: Discharge information faxed to pt Direction executive kitchen manager Kristina Petersen. ATUL Krause Original Note: Social Work Physician stating pt is now ready for discharge today. Phone call to Malka at [facility] and they are able to accept today. 7000 convalescent form completed in [facility] and sent along with discharge orders and covid results to [facility] via [facility]. Transportation arranged with Physicians for 7:30 spanish moss picker via cot. Pt made aware of discharge plan and agreeable. Pt states he will contact family of d/c plan and denies need for SW to call. [facility] and nursing updated on discharge time. Disposition: [facility], skilled level of care under convalescent stay ATUL Chacon
[2022-10-09 19:10] LABS: Bedside Glucose 154 mg/dL (74-106)
== END 2022-10-09 21:20 | disposition skilled nursing facility (03) | DRG 638 ==
LOC: ED 19:45 → MS3 19:57
PROVIDERS: Internal Medicine Infectious Disease; Admitting Provider Internal Medicine; Emergency Provider Student in an Organized Health Care Education/Training Program; PCP Nurse Practitioner Family
DX: E11.69 Type 2 diabetes mellitus with other specified complication (principal); L03.115 Cellulitis of right lower limb; Z68.43 Body mass index [BMI] 50.0-59.9, adult; M86.171 Other acute osteomyelitis, right ankle and foot; E11.22 Type 2 diabetes mellitus with diabetic chronic kidney disease; L97.513 Non-pressure chronic ulcer of other part of right foot with necrosis of muscle; B95.2 Enterococcus as the cause of diseases classified elsewhere; E11.621 Type 2 diabetes mellitus with foot ulcer; E11.42 Type 2 diabetes mellitus with diabetic polyneuropathy; J44.9 Chronic obstructive pulmonary disease, unspecified; N18.30 Chronic kidney disease, stage 3 unspecified; Z79.4 Long term (current) use of insulin; Z89.512 Acquired absence of left leg below knee; E66.01 Morbid (severe) obesity due to excess calories; E03.9 Hypothyroidism, unspecified; E78.5 Hyperlipidemia, unspecified; I25.10 Atherosclerotic heart disease of native coronary artery without angina pectoris; I12.9 Hypertensive chronic kidney disease with stage 1 through stage 4 chronic kidney disease, or unspecified chronic kidney disease; F41.9 Anxiety disorder, unspecified; Z87.891 Personal history of nicotine dependence; F32.A Depression, unspecified; Z79.899 Other long term (current) drug therapy; Z79.02 Long term (current) use of antithrombotics/antiplatelets; Z79.890 Hormone replacement therapy; Z79.82 Long term (current) use of aspirin; Z86.73 Personal history of transient ischemic attack (TIA), and cerebral infarction without residual deficits; B96.89 Other specified bacterial agents as the cause of diseases classified elsewhere
CPT/HCPCS: 36415; 36569; 73630; 73718; 80048; 80053; 80202; 82962; 85025; 85652; 86140; 87070; 87075; 87077; 87186; 87205; 87426; 93923; 94762; 97802; 99285; J7030; J7040; J7050; A4216

== ENCOUNTER 2022-11-29 18:25 | Inpatient (IN) | payer MEDICARE, MEDICAID, SELFPAY ==
[2022-11-29 18:28] VITALS: BP 103/65; PULSE 71; RESP 20; TEMP 36.7; O2SAT 99; BMI 47.5
[2022-11-29 18:30] VITALS: BP 103/75; PULSE 71; RESP 20; TEMP 36.7; O2SAT 99
--- NOTE | 2022-11-29 19:17 | RAD_ITS ---
STUDY: X-RAY - RIGHT FOOT CLINICAL: Male, 67 years old. Open wound to right first MTP joint. History of diabetic neuropathy. Infection. TECHNIQUE: 3 view(s) of the foot. COMPARISON: October 05, 2022. FINDINGS: Normal talus, calcaneus, and tarsal bones. Normal visualized subtalar, talonavicular, calcaneocuboid, tarsal and tarsometatarsal articulations. Normal metatarsi. Mild hallux valgus deformity with minimal degenerative changes of first metatarsal-phalangeal joint. Sclerosis of the tibial sesamoid. The fibular sesamoid is unremarkable Normal phalanges of the great toe. Normal second through fifth metatarsophalangeal joints. Normal interphalangeal joints and phalanges of the lesser toes. Soft tissue irregularity over the medial aspect of the first metatarsophalangeal joint. RAD/Foot min 3 Views IMPRESSION: Soft tissue irregularity along the medial aspect of the first metatarsophalangeal joint. There is no underlying osseous destruction to suggest osteomyelitis. There is sclerosis of the tibial sesamoid and osteomyelitis cannot be entirely ruled out. Electronically Signed: Humza Bravo DO at 19:40 EST ,
[2022-11-29 20:35] LABS: Absolute Lymphocyte Count 2.47 X10^3/uL (0.83-4.51); Absolute Neutrophil Count 7.1 X10^3/uL (2.0-7.7); Basophil# 0.03 X10^3/uL; Basophil% 0.3 % (0-1); Eosinophil# 0.12 X10^3/uL; Eosinophils% 1.1 % (0-5); Hematocrit 43.8 % (40-54); Hemoglobin 14.3 g/dL (13.0-16.5); Lymphocyte # 2.47 X10^3/ul (0.83-4.51); Lymphocyte % 23.1 % (19-41); Mean Corp Hgb Conc 32.6 g/dL (32-36); Mean Corpuscular Hgb 28.5 pg (27.0-32.0); Mean Corpuscular Volume 87.3 fL (80-94); Mean Platelet Vol. 10.6 fl (6.2-12.0); Monocyte# 0.93 X10^3/uL; Monocyte% 8.7 % (0-10); NRBC Flagged by Analyzer 0 % (0-5); Neutrophil # 7.09 X10^3/uL (2.7-7.7); Neutrophil % 66.2 % (47-70); Platelet Count 247 K/mm3 (150-450); RBC Distribution Width CV 15.3 % (11.6-14.6); RBC Distribution Width SD 49.5 fl (35.1-43.9); Red Blood Count 5.02 M/mm3 (4.6-6.2); White Blood Count 10.7 K/mm3 (4.4-11.0)
[2022-11-29 20:41] VITALS: BP 116/74; PULSE 64; RESP 15; TEMP 36.8; O2SAT 98
[2022-11-29 20:44] LABS: Erythrocyte Sedimentation Rate 54 mm/hr (0-20)
[2022-11-29 20:52] LABS: Anion Gap 9 (5-15); BUN 47 mg/dL (7-18); CRP < 2.90 mg/L (0.0-3.0); Calcium,Total 9.3 mg/dL (8.5-10.1); Chloride 108 mmol/L (98-107); Creatinine, Serum 1.81 mg/dL (0.70-1.30); EST Glomerular Filtration Rate 40 mL/min (>60); Est Glom Filt Rate - Afr Amer 49 mL/min (>60); Estimated Creatinine Clearance 43.34 ml/min; Glucose 132 mg/dL (74-106); Potassium 5.2 mmol/L (3.5-5.1); Sodium Level 135 mmol/L (136-145)
--- NOTE | 2022-11-29 21:09 | EDS_ITS ---
HPI History of Present Illness Chief Complaint: Wound Informant: patient Narrative Narrative: Patient presents with a diabetic right foot infection that has been going on for 1-2 months. He is under the care of Dr. Quiles for this, and since MRSA was cultured out of the wound, he has been on IV vancomycin and at the [facility] for that, he was getting antibiotics for about a month. He states he finished a course of vancomycin and may be a week or so ago, and saw his urban and regional planner in the office, he was recommending amputation prior to this but the patient refused because he had a prior amputation of the left lower extremity, and wanted to try to salvage what he could hear and use antibiotics. However it appears this is failed, and the patient states just now he is presenting here as advised by his urban and regional planner a week ago for admission and further surgical intervention. Patient denies any fevers or chills or new symptoms since he saw his urban and regional planner in the office, he states he has felt malaised ever since he was in the [facility] for the last month or 2 and nothing has changed there. His foot is insensate and not painful, he has history of peripheral neuropathy due to his diabetes. [facility] Medical History Acute CVA (cerebrovascular accident) Alcohol abuse Alcoholism in recovery Anxiety Anxiety and depression Arthritis Below knee amputation BiPAP (biphasic positive airway pressure) dependence CAD (coronary artery disease) Carotid stenosis with cerebral infarction less than 8 weeks ago Charcot's joint of foot due to diabetes Chronic renal failure, stage 3 (moderate) COPD (chronic obstructive pulmonary disease) Depression Diabetes mellitus with diabetic polyneuropathy Diabetes type 2, uncontrolled Diabetic foot ulcer associated with type 2 diabetes mellitus Diabetic neuropathy associated with type 2 diabetes mellitus Drug abuse Enlarged RV (right ventricle) Former smoker GERD (gastroesophageal reflux disease) GI problem Grade I diastolic dysfunction H/O transfusion of whole blood Hallux limitus of right foot Hearing problem High triglycerides HTN (hypertension) Hyperlipidemia Hypothyroidism Kidney disease New left bundle branch block Non-compliance CECILE treated with BiPAP Osteoarthritis Osteoporosis Physical debility Pneumonia prostate problems Pulmonary hypertension Recurrent infections Sleep apnea Super obesity Thyroid disorder Type 2 diabetes mellitus with foot ulcer Venous stasis dermatitis Vision problems Vitamin deficiency Home Medications ropinirole 0.25 mg tablet 0.25 mg PO BID restless leg syndrome 08/17/16 [History Last Taken 12/05/22] fluticasone propionate 50 mcg/actuation nasal spray,suspension (Flonase Allergy Relief) 2 spray intranasal DAILY PRN PRN Sinus Congestion 02/14/18 [History Last Taken 10/05/22] bupropion HCl 150 mg tablet,12 hr sustained-release 150 mg PO BID DEPRESSION 03/21/20 [History Last Taken 10/05/22] duloxetine 60 mg capsule,delayed release 60 mg PO DAILY DEPRESSION 03/21/20 [History Last Taken 10/05/22] omeprazole 40 mg capsule,delayed release 40 mg PO BID GERD 03/21/20 [History Last Taken 10/05/22] levothyroxine 75 mcg tablet 225 mcg PO DAILY@0600 thyroid 04/21/20 [History Last Taken 10/05/22] insulin regular hum U-500 conc 500 unit/mL(3 mL) subcut pen 30 units subcut TID 11/02/20 [History Last Taken 10/04/22] dulaglutide 1.5 mg/0.5 mL subcutaneous pen injector (Trulicity) mg subcut QWEEK dm 06/09/22 [History Last Taken 10/01/22] ergocalciferol (vitamin D2) 1,250 mcg (50,000 unit) capsule (Vitamin D2) 1 PO QWEEK Check with primary doctor 06/09/22 [History Last Taken 10/01/22] albuterol sulfate 90 mcg/actuation aerosol inhaler (ProAir HFA) 2 inh inhalation Q4H PRN shortness of breath or wheezing #6.7 grams 06/13/22 [Rx Last Taken 10/04/22] carvedilol 12.5 mg tablet 12.5 mg PO BID 30 days #60 tabs 06/13/22 [Rx Last Taken Unknown] aspirin 81 mg chewable tablet 81 mg PO BREAKFAST heart health 10/05/22 [History Last Taken 10/05/22] atorvastatin 80 mg tablet 80 mg PO QHS cholesterol 10/05/22 [History Last Taken 10/04/22] clopidogrel 75 mg tablet 75 mg PO DAILY blood thinner 10/05/22 [History Last Taken Unknown] guaifenesin 1,200 mg tablet, extended release 12 hr (Mucus Relief ER) 1,200 mg PO QHS congesttion 10/05/22 [History Last Taken 10/04/22] insulin glargine-yfgn 100 unit/mL (3 mL) subcutaneous pen 60 unit subcut BID DM 10/05/22 [History Last Taken 10/05/22] lisinopril 10 mg-hydrochlorothiazide 12.5 mg tablet 1 tab PO DAILY bp 10/05/22 [History Last Taken Unknown] multivitamin with folic acid 400 mcg tablet 1 tab PO DAILYCM supplement 10/05/22 [History Last Taken 10/05/22] mupirocin 2 % topical ointment 1 applic NASAL BID nose 10/05/22 [History Last Taken Unknown] tolterodine 2 mg capsule,extended release 24 hr 2 mg PO DAILY bladder 10/05/22 [History Last Taken 10/04/22] acetaminophen 325 mg tablet (Tylenol) 650 mg PO Q6H PRN PRN Pain 1-10 Or Fever>100.7 #30 tabs 10/09/22 [Rx Last Taken Unknown] enoxaparin 40 mg/0.4 mL subcutaneous syringe 40 mg (0.4 mL) subcut BID #0 mL 10/09/22 [Rx Last Taken Unknown] piperacillin-tazobactam 3.375 gram intravenous solution 3.375 g IV Q8H 38 days #114 ea 10/09/22 [Rx Last Taken Unknown] vancomycin 1.5 gram intravenous solution 1.5 g IV Q24H 38 days #38 ea 10/09/22 [Rx Last Taken Unknown] Allergy/AdvReac Type Severity Reaction Status Date / Time No Known Allergies Allergy Verified 11/19/22 12:57 Family History Mother Arthritis Diabetes Hypertension High cholesterol Osteoporosis Sister Breast cancer Cancer High cholesterol Brother Lung cancer High cholesterol Father Hypertension High cholesterol Surgical History Partial nontraumatic amputation of left foot Social History household members: none housing: apartment Smoking Status: Former smoker alcohol intake: former substance use type: does not use ROS ROS ED Constitutional Constitutional ED: Reports malaise; Denies chills or fever(s) Eyes Eyes: Denies change in vision or diplopia ENT ENT ED: Denies rhinorrhea or sore throat Cardiovascular Cardiovascular: Denies chest pain or palpitations Respiratory/Chest Respiratory/Chest: Denies cough or dyspnea Gastrointestinal Gastrointestinal: Denies abdominal pain, diarrhea, nausea or vomiting Genitourinary Genitourinary ED: Denies dysuria or hematuria Musculoskeletal Musculoskeletal: Denies back pain or neck pain Integumentary Denies abscess or rash Neurologic Neurologic: Reports paresthesias RLE and LLE; Denies headache(s) or weakness Psychiatric Psychiatric: Denies anxiety or suicidal thoughts EXAM Physical Exam Const Vital Signs: 11/29/22 18:28 11/29/22 18:30 11/29/22 20:41 Temperature 98.0 F 98.0 F 98.2 F Temperature Source Oral Oral Temporal Pulse Rate 71 71 64 Respiratory Rate 20 H 20 H 15 Blood Pressure 103/65 103/75 116/74 Blood Pressure Mean 77 84 88 Pulse Ox 99 99 98 Oxygen Delivery Method Room Air Room Air Room Air Positive well nourished and well developed General Appearance ED: well developed and NAD HEENT Reports moist mucous membranes normocephalic and atraumatic Eyes PERRL and EOMs intact bilaterally Neck full ROM and supple Resp normal respiratory effort and clear to auscultation bilaterally Cardio regular rate, regular rhythm and no murmurs Rate: Negative for tachycardic GI non-tender and non-distended Auscultation: normoactive bowel sounds Palpation: soft Back/Spine no CVA tenderness General Back: other FROM Extremity normal to inspection and full ROM Extremity Narrative: Ulcerative wound without expressive discharge or bleeding at the left plantar forefoot, first ray. No bone exposed. Insensate to the patient due to neuropathy. No subcutaneous emphysema or lymphangitis seen. Status post left AKA General Extremety ED: Negative for edema or pulses abnormal General Extremity: Negative for edema or pulses abnormal Neuro oriented x3 and CN's II-XII intact bilaterally Neuro Narrative: Insensate right foot chronic per patient Sensorium / Orientation: awake and alert Motor Exam: strength 5/5 throughout Psych mental status grossly normal Skin no rashes or lesions noted and no wounds MDM MDM MDM Narrative Medical decision making narrative: Labs and x-ray obtained. 3 view x-ray of the right foot on my interpretation shows some possible demineralization of the distal aspect of the first metatarsal. Radiology report reviewed. Discussed with Dr. Quiles, who states patient previously diagnosed with osteomyelitis, and will need to be admitted for surgical management, requesting an MRI initially and consult by Dr. Castillo who was following the patient as an outpatient. Recommends we start vancomycin back again for now, since MRSA was cultured from his wound initially. Patient is stable for floor does not require ICU right now. Discussed with hospitalist Dr. Castaneda. Lab Data Attestation: I reviewed the patient's lab results. Labs: Laboratory Results - last 24 hr 11/29/22 11/29/22 20:26 20:26 WBC 10.7 RBC 5.02 Hgb 14.3 Hct 43.8 MCV 87.3 MCH 28.5 MCHC 32.6 RDW Std Deviation 49.5 H RDW Coeff of Jose 15.3 H Plt Count 247 MPV 10.6 Immature Gran % (Auto) 0.600 Neut % (Auto) 66.2 Lymph % (Auto) 23.1 [place] % (Auto) 8.7 Eos % (Auto) 1.1 Baso % (Auto) 0.3 Absolute Neuts (auto) 7.1 Absolute Lymphs (auto) 2.47 Nucleated RBC % 0 ESR 54 H Sodium 135 L Potassium 5.2 H Chloride 108 H Carbon Dioxide 18.0 L Anion Gap 9 BUN 47 H Creatinine 1.81 H Estim Creat Clear Calc 43.34 Est GFR (MDRD) Af Amer 49 L Est GFR (MDRD) Non-Af 40 L BUN/Creatinine Ratio 26.0 H Glucose 132 H Calcium 9.3 C-React Prot Ext Range < 2.90 Radiography Diagnostic Testing: Clinical Impression(s) from Imaging Studies Foot X-Ray 11/29/22 19:17 IMPRESSION: Soft tissue irregularity along the medial aspect of the first metatarsophalangeal joint. There is no underlying osseous destruction to suggest osteomyelitis. There is sclerosis of the tibial sesamoid and osteomyelitis cannot be entirely ruled out. Electronically Signed: Humza Bravo DO at 19:40 EST Reading Location ID and State: [facility] / MD Tel [phone], Service support , Discharge Plan Dx/Rx/DC Orders Clinical Impression: Acute osteomyelitis of metatarsal bone of right foot, Diabetic infection of right foot, Failure of outpatient treatment Disposition Disposition: [facility]
--- NOTE | 2022-11-29 21:45 | PCM.HP.STD ---
HPI - General General Date of Admission: 11/29/22 Date of Service: 11/29/22 Chief Complaint: Diabetic foot wound, not improving despite inpatient->transitioned to outpatient abx therapy. 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, HTN, HLD, Anxiety and Depression, CKD stage IIIb, Hx Polysubstance abuse, Former tobacco use, GERD, CECILE on BIPAP q HS, Hypothyroidism, Morbid Obesity, RLS, Hx CVA 06/2022 with left-sided facial droop and left upper extremity weakness secondary to multiple scattered subacute shower microembolic ischemic infarctions in the right cerebellar hemisphere complicated by bilateral carotid stenoses, worse right-sided carotid stenosis, most recently discharged 10/09/22 following evaluation and treatment of R foot osteomyelitis (enterococcus, coryne, and GNR) of the 1st metatarsal treated with IV vanc and zosyn with declined OR per patient w/ stop date per ID 11/16/22 who now re-presents, sent from the SNF with purported history per patient of being discharged from SNF on day of presentation reporting he ran out of days however upon further discussion patient had been referred to the hospitalist secondary to ongoing infected appearing R diabetic foot ulcer despite antibiotic treatments with recommendation for surgical evaluation noted to have been following with Dr. Quiles and Dr. Shukla. Patient denies any pain to the right foot however he has lack of sensation secondary to severe diabetic neuropathy. He reports that the wound has more visualization of what appears to be potentially tendon and it had prior but there has not been severe marked purulent drainage from this region. He denies any significant increased swelling to the region work-up in the ED included T98.2, heart rate 64, BP 116/74, respiratory rate 15, 98% on room air, CBC with WC 10.7, hemoglobin 14.3, platelet 247 without marked shift, ESR 54, BMP with sodium 135, potassium 5.2, chloride 108, 18, BUN/Conforti 7/1.81, glucose 132, CRP less than 2.90, plain film of the right foot secondary to open wound to the right first MTP joint with noted soft tissue irregularity along the medial aspect of the first metatarsophalangeal joint with no underlying osseous destruction to suggest osteomyelitis, sclerosis of the tibial sesamoid and osteomyelitis cannot be entirely ruled out however. In the ED patient ministered IV vancomycin. ED discussed case with Dr. Quiles who does report concerns for ongoing infection given patient deferral of recommended initial surgery. [facility] Medical History (Updated 11/29/22 @ 23:29 by Alicia Schilling) Acute CVA (cerebrovascular accident) Alcohol abuse Alcoholism in recovery Anxiety Anxiety and depression Arthritis Below knee amputation BiPAP (biphasic positive airway pressure) dependence CAD (coronary artery disease) Carotid stenosis with cerebral infarction less than 8 weeks ago Charcot's joint of foot due to diabetes Chronic renal failure, stage 3 (moderate) COPD (chronic obstructive pulmonary disease) Depression Diabetes mellitus with diabetic polyneuropathy Diabetes type 2, uncontrolled Diabetic foot ulcer associated with type 2 diabetes mellitus Diabetic neuropathy associated with type 2 diabetes mellitus Drug abuse Enlarged RV (right ventricle) Former smoker GERD (gastroesophageal reflux disease) GI bleed GI problem Grade I diastolic dysfunction H/O transfusion of whole blood Hallux limitus of right foot Hearing loss, left Hearing loss, right Hearing problem High triglycerides HTN (hypertension) Hyperlipidemia Hypertension Hypothyroidism Hypothyroidism Kidney disease New left bundle branch block Non-compliance On home oxygen therapy CECILE treated with BiPAP Osteoarthritis Osteoporosis Physical debility Pneumonia prostate problems Pulmonary hypertension Recurrent infections Sleep apnea Super obesity Thyroid disorder TIA (transient ischemic attack) Type 2 diabetes mellitus with foot ulcer Venous stasis dermatitis Vision problems Vitamin deficiency Home Medications fluticasone propionate 50 mcg/actuation nasal spray,suspension (Flonase Allergy Relief) 2 spray intranasal DAILY PRN PRN Sinus Congestion 02/14/18 [History Last Taken 10/05/22] bupropion HCl 150 mg tablet,12 hr sustained-release 150 mg PO BID DEPRESSION 03/21/20 [History Last Taken 11/29/22 08:00] duloxetine 60 mg capsule,delayed release 60 mg PO DAILY DEPRESSION 03/21/20 [History Last Taken 11/29/22 08:00] levothyroxine 75 mcg tablet 225 mcg PO DAILY@0600 thyroid 04/21/20 [History Last Taken 11/29/22 08:00] ergocalciferol (vitamin D2) 1,250 mcg (50,000 unit) capsule (Vitamin D2) 50,000 unit PO TH Check with primary doctor 06/09/22 [History Last Taken 11/26/22] albuterol sulfate 90 mcg/actuation aerosol inhaler (ProAir HFA) 2 inh inhalation Q4H PRN shortness of breath or wheezing #6.7 grams 06/13/22 [Rx Last Taken 10/04/22] carvedilol 12.5 mg tablet 12.5 mg PO BID 30 days #60 tabs 06/13/22 [Rx Last Taken 11/29/22 08:00] aspirin 81 mg chewable tablet 81 mg PO BREAKFAST heart health 10/05/22 [History Last Taken 11/29/22 08:00] atorvastatin 80 mg tablet 80 mg PO QHS cholesterol 10/05/22 [History Last Taken 11/28/22 22:00] clopidogrel 75 mg tablet 75 mg PO DAILY blood thinner 10/05/22 [History Last Taken 11/29/22 08:00] guaifenesin 1,200 mg tablet, extended release 12 hr (Mucus Relief ER) 600 mg PO BID congesttion 10/05/22 [History Last Taken 11/28/22 22:00] multivitamin with folic acid 400 mcg tablet 1 tab PO DAILYCM supplement 10/05/22 [History Last Taken 10/05/22] acetaminophen 325 mg tablet (Tylenol) 650 mg PO Q6H PRN PRN Pain 1-10 Or Fever>100.7 #30 tabs 10/09/22 [Rx Last Taken Unknown] bisacodyl 10 mg rectal suppository 10 mg [place] DAILY PRN Constipation 11/29/22 [History Last Taken Unknown] buspirone 10 mg tablet 10 mg PO BID anxiety 11/29/22 [History Last Taken 11/29/22 08:00] folic acid 1 mg tablet 1 mg PO DAILY Check with primary doctor 11/29/22 [History Last Taken 11/29/22 08:00] ascorbic acid (vitamin C) 500 mg tablet (Vitamin C) 500 mg PO DAILY supplement 11/30/22 [History Last Taken 11/29/22] cyanocobalamin (vitamin B-12) 500 mcg tablet (Vitamin B-12) 500 mcg PO DAILY supplement 11/30/22 [History Last Taken 11/29/22] dulaglutide 1.5 mg/0.5 mL subcutaneous pen injector (Trulicity) 1.5 mg subcut BULLARD blood sugar 11/30/22 [History Last Taken 11/29/22] guaifenesin 600 mg tablet, extended release 12 hr 600 mg PO Q12H . 11/30/22 [History Last Taken 11/29/22] insulin glargine 100 unit/mL (3 mL) subcutaneous pen (Lantus Solostar U-100 Insulin) 50 unit subcut BID blood sugar 11/30/22 [History Last Taken 11/29/22] lisinopril 10 mg tablet 10 mg PO DAILY bp 11/30/22 [History Last Taken 11/30/22 0800] multivitamin,tx-minerals 1 tab PO DAILY health maintance 11/30/22 [History Last Taken 11/30/22] oxybutynin chloride 5 mg tablet,extended release 24 hr 5 mg PO DAILY bladder spasms 11/30/22 [History Last Taken 11/30/22] pantoprazole 40 mg tablet,delayed release 40 mg PO QHS stomach 11/30/22 [History Last Taken 11/29/22] potassium chloride 20 mEq oral packet 20 meq PO DAILY supplement 11/30/22 [History Last Taken 11/30/22] ropinirole 0.25 mg tablet 0.25 mg PO BID rls 11/30/22 [History Last Taken 11/29/22] Allergy/AdvReac Type Severity Reaction Status Date / Time No Known Allergies Allergy Verified 11/19/22 12:57 Family History Mother Arthritis Diabetes Hypertension High cholesterol Osteoporosis Sister Breast cancer Cancer High cholesterol Brother Lung cancer High cholesterol Father Hypertension High cholesterol Surgical History Partial nontraumatic amputation of left foot Social History household members: none housing: apartment Smoking Status: Former smoker alcohol intake: former substance use type: does not use ROS ROS Narrative Admission Review of Systems: CONSTITUTIONAL: No weight loss, fever, chills, + weakness or fatigue. HEENT: Eyes: No visual loss, blurred vision, double vision or yellow sclerae. Ears, Nose, Throat: No hearing loss, sneezing, congestion, runny nose or sore throat. SKIN: + Right lower extremity with pressure chronic ulcer right foot. CARDIOVASCULAR: No chest pain, chest pressure or chest discomfort, palpitations, edema, orthopnea, syncopal events. RESPIRATORY: No shortness of breath, cough or sputum, wheezing, hemoptysis. GASTROINTESTINAL: No anorexia, nausea, vomiting or diarrhea, abdominal pain, melena, BRBPR. GENITOURINARY: No dysuria, frequency, urgency or retention. NEUROLOGICAL: + History of prior CVA, no headache, dizziness, syncope, paralysis, ataxia, numbness or tingling in the extremities, change in bowel or bladder control, seizure. MUSCULOSKELETAL: + muscle, back pain, joint pain or stiffness. HEMATOLOGIC: No anemia, bleeding or bruising. LYMPHATICS: No enlarged nodes. No history of splenectomy. PSYCHIATRIC: + history of depression or anxiety. ENDOCRINOLOGIC: No reports of sweating, cold or heat intolerance. No polyuria or polydipsia. ALLERGIES: + history of rhinitis. Vital Signs Vital Signs Vital Signs: 11/29/22 18:28 11/29/22 18:30 11/29/22 20:41 Temperature 98.0 F 98.0 F 98.2 F Temperature Source Oral Oral Temporal Pulse Rate 71 71 64 Respiratory Rate 20 H 20 H 15 Blood Pressure 103/65 103/75 116/74 Blood Pressure Mean 77 84 88 Pulse Ox 99 99 98 Oxygen Delivery Method Room Air Room Air Room Air Weight Weight: 340 lb 13.354 oz Body Mass Index (BMI) 47.5 Physical Exam Narrative Physical Examination: General: Awake, alert, oriented x 3 and cooperative, seated upright in the ED bed, fatigued and mildly irritable but otherwise no acute distress. Skin: Normal color, normal turgor, no icterus, no cyanosis except for noted right lower extremity chronic nonstasis ulcer to the right first metatarsal region laterally with visualized what appears to be tendon with no undermining of the tissue of the open region and no current discharge or foul odor, right lower extremity with also concurrent venous stasis skin changes. HEENT: AT/NC, EOMI, PERRLA, mildly dry MM, no carotid bruits or JVD noted; however thickened neck makes evaluation difficult. Lungs: Diminished, greater bases, moderate effort, no rales, ronchi or wheezing. Heart: Regular rate and rhythm; no gallop, rub audible. Abdomen: Soft, morbidly obese, NTTP, patient denies notable distention, nontympanic, distant normal BS, difficult to discern HSM given habitus. Extremities: No cyanosis, no clubbing, status post prior left BKA with prosthesis, right foot with diabetic foot wound is noted, see skin. Neurological: Patient awake, alert, oriented as noted,, cognitive function intact; pupils equally reactive to light and accommodation, cranial nerves grossly normal with no marked evidence of any facial droop as had had stroke prior, moving all 4 extremities, mild left upper extremity compared to right weakness but not severe with history of prior CVA, strength moderately globally decreased secondary to underlying comorbidities and acute presentation. Psychiatric: Affect appears mildly irritable otherwise normal, no acute evidence of depressive or anxiety feelings. Results Lab / Micro Data Result Diagrams: 11/29/22 20:26 11/29/22 20:26 Labs: Laboratory Results - last 24 hr 11/29/22 20:26: WBC 10.7, RBC 5.02, Hgb 14.3, Hct 43.8, MCV 87.3, MCH 28.5, MCHC 32.6, RDW Std Deviation 49.5 H, RDW Coeff of Jose 15.3 H, Plt Count 247, MPV 10.6, Immature Gran % (Auto) 0.600, Neut % (Auto) 66.2, Lymph % (Auto) 23.1, [place] % (Auto) 8.7, Eos % (Auto) 1.1, Baso % (Auto) 0.3, Absolute Neuts (auto) 7.1, Absolute Lymphs (auto) 2.47, Nucleated RBC % 0, ESR 54 H 11/29/22 20:26: Sodium 135 L, Potassium 5.2 H, Chloride 108 H, Carbon Dioxide 18.0 L, Anion Gap 9, BUN 47 H, Creatinine 1.81 H, Estim Creat Clear Calc 43.34, Est GFR (MDRD) Af Amer 49 L, Est GFR (MDRD) Non-Af 40 L, BUN/Creatinine Ratio 26.0 H, Glucose 132 H, Calcium 9.3, C-React Prot Ext Range < 2.90 Radiology Impression Foot X-Ray 11/29/22 19:17 IMPRESSION: Soft tissue irregularity along the medial aspect of the first metatarsophalangeal joint. There is no underlying osseous destruction to suggest osteomyelitis. There is sclerosis of the tibial sesamoid and osteomyelitis cannot be entirely ruled out. Electronically Signed: Humza Bravo DO at 19:40 EST Reading Location ID and State: [facility] / [place] Tel [phone], Service support , Assessment & Plan Assessment/Plan (1) Non-pressure chronic ulcer of other part of right foot with necrosis of muscle: PLAN: Plan The patient is a 67 y/o M w/ PMHx: COPD, History of EtOH abuse in recovery, 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, HTN, HLD, Anxiety and Depression, CKD stage IIIb, Hx Polystance abuse, Former tobacco use, GERD, CECILE on BIPAP q HS, Hypothyroidism, Morbid Obesity, RLS, Hx CVA 06/2022 with left-sided facial droop and left upper extremity weakness secondary to multiple scattered subacute shower microembolic ischemic infarctions in the right cerebellar hemisphere complicated by bilateral carotid stenoses, worse right-sided carotid stenosis, most recently discharged 10/09/22 following evaluation and treatment of R foot osteomyelitis of the 1st metatarsal treated with IV vanc and zosyn with declined OR per patient w/ stop date per ID 11/16/22 who now represents, sent from the SNF with concern for ongoing right foot infection. #1. Concern for ongoing infected acute on chronic first metatarsal diabetic foot wound (last Cx enterococcus, coryne, and GNR), concern for failed outpatient and recent inpatient IV abx therapies: Patient with ongoing questionably infected R diabetic foot ulcer despite antibiotic treatments, had been recommended amputation but patient had declined at that time, will admit MS, will restart IV vanc and zosyn, if discharge will obtain wound Cx and wound MRSA PCR, will request reassessment per Dr. Quiles who was contacted per ED upon his arrival, will request repeat ID involvement, will also request Dr. Shukla involvement as most recent noted assessment with 10/2022 LEAS LE arterial flow with no acute ischemia noted however diminished TBI, following with Vascular for carotid disease but did not note any mention of his LLE upon his recent visit, Wound RN consulted, PRN pain regimen, PRN antiemetic regimen, judicious IVFs, NPO after midnight in case of OR potential athough would suspect delay given vascular evaluation needs also. #2. Mild hyperkalemia: Potassium 5.2, will judiciously hydrate given history and repeat CMP in AM. #3. CVA w/ Carotid disease: 06/2022 CVA w/ with left-sided facial droop and left upper extremity weakness secondary to multiple scattered subacute shower microembolic ischemic infarctions in the right cerebellar hemisphere complicated by bilateral carotid stenoses, worse right-sided carotid stenosis. Recent 11/19/[address] Shukla Vascular surgery with noted patient intention for carotid re-vascularization with planned CEA. Continue aspirin, plavix, statin, diabetic regimen with alteration as noted, hypertensive regimen. #4. Chronic anemia: Admission hemoglobin 13.3, baseline hemoglobin noted prior primarily 08-12, most recently noted prior to this 11/11/2019 312.1 prior to last discharge, continue to trend. #5. History of EtOH abuse in recovery, history of polysubstance abuse: Encouraged continued sobriety and clean status. #6. Anxiety and depression: We will continue patient home duloxetine and appropriate regimen. #7. 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 #8. COPD with allergic rhinitis: Not on any chronic inhalers, encourage continued tobacco cessation, ATC budesonide, PRN albuterol, HOB, IS parameters, continue patient home fluticasone regimen as needed. #9. Hypertension: Continue home regimen including lisinopril, hydrochlorothiazide, Coreg, PRN hydralazine. #10. Hyperlipidemia: We will continue patient on statin therapy. #11. CKD stage IIIb: Admission BUN/creatinine 47/1.81, baseline creatinine 1.6-2.0, continue to trend. #12. Former tobacco use: Encourage continued tobacco cessation. #13. GERD: We will continue patient on PPI. #14. CECILE: Maintain on BIPAP q HS #15. Hypothyroidism: We will continue patient home levothyroxine regimen #16. Morbid Obesity: Weight loss and lifestyle changes encouraged. #17. RLS: We will continue patient on Requip regimen. #18. DVT prophylaxis: SCDs, Lovenox. #19. CODE STATUS: Full code. Admission Evaluation Time spent evaluating chart, patient history, patient evaluation, care planning and discussion with specialists: 78 minutes. Charges/Coding Visit Charges Inpatient E&M: 44524 Init Hosp L3
[2022-11-29 23:03] VITALS: BP 130/70; PULSE 77; RESP 17; TEMP 36.6; O2SAT 98
[2022-11-29 23:16] VITALS: BMI 46.0
[2022-11-30 00:33] VITALS: BP 99/58; PULSE 73; RESP 20; TEMP 37.1; O2SAT 98
--- NOTE | 2022-11-30 00:41 | PCM.RX.CS ---
Consult Pharmacy has been consulted to manage selected antiobiotic: Vancomycin Type of Consult: New start Suspected Infection: Skin/Soft tissue Labs: Sodium 135 mmol/L (136-145) L 11/29/22 20:26 Potassium 5.2 mmol/L (3.5-5.1) H 11/29/22 20:26 Chloride 108 mmol/L (98-107) H 11/29/22 20:26 Carbon Dioxide 18.0 mmol/L (21.0-32.0) L 11/29/22 20:26 Anion Gap 9 (5-15) 11/29/22 20:26 BUN 47 mg/dL (7-18) H 11/29/22 20:26 Creatinine 1.81 mg/dL (0.70-1.30) H 11/29/22 20:26 Est GFR (MDRD) Af Amer 49 mL/min (>60) L 11/29/22 20:26 Est GFR (MDRD) Non-Af 40 mL/min (>60) L 11/29/22 20:26 BUN/Creatinine Ratio 26.0 RATIO (10-20) H 11/29/22 20:26 Glucose 132 mg/dL (74-106) H 11/29/22 20:26 Goal Trough: 15-20 mcg/mL Pharmacy Plan for Drug Dosing: Pharmacy Service will continue to monitor and adjust dosing as required. Medications Vancomycin HCl 1,250 mg/ (Sodium Chloride) 275 mls @ 167 mls/hr IV Q12H FAITH Discontinued Medications Vancomycin HCl 2,000 mg/ (Sodium Chloride) 540 mls @ 250 mls/hr IV X1 ONE Stop: 11/29/22 23:32 Last Admin: 11/29/22 22:24 Dose: 250 mls/hr Follow-Up Labs: Trough Vancomycin Labs to be done on [date and time ordered]: 12/01 @ 1000
[2022-11-30] MEDS: Pramipexole Di-HCl 0.125 MG Tablet PO ×3 (00:42→21:53)
[2022-11-30] MEDS: Pantoprazole Sodium 40 MG Tablet PO ×3 (00:42→21:52)
[2022-11-30] MEDS: buPROPion (SR) 150 MG Tablet.SA PO ×3 (00:42→21:52)
[2022-11-30] MEDS: Atorvastatin Calcium 80 MG Tablet PO ×2 (00:42→21:52)
[2022-11-30] MEDS: 0.9% Normal Saline 1,000 ML 100 ML IV (01:00)
[2022-11-30 01:15] LABS: Bedside Glucose 110 mg/dL (74-106)
[2022-11-30 02:31] LABS: M R Staph aureus DNA By PCR Negative (Negative); Probe Check PASS; Specimen Processing Control PASS; Staph aureus DNA By PCR NEGATIVE (Negative)
[2022-11-30 05:40] VITALS: BP 107/89; PULSE 73; RESP 18; TEMP 36.6; O2SAT 95
[2022-11-30] MEDS: Levothyroxine 75 MCG Tablet 225 MCG PO (05:43)
[2022-11-30 06:10] LABS: Bedside Glucose 82 mg/dL (74-106)
[2022-11-30 06:51] LABS: Absolute Lymphocyte Count 2.59 X10^3/uL (0.83-4.51); Absolute Neutrophil Count 5.9 X10^3/uL (2.0-7.7); Basophil# 0.02 X10^3/uL; Basophil% 0.2 % (0-1); Eosinophil# 0.21 X10^3/uL; Eosinophils% 2.2 % (0-5); Hematocrit 42.4 % (40-54); Hemoglobin 13.5 g/dL (13.0-16.5); Lymphocyte # 2.59 X10^3/ul (0.83-4.51); Lymphocyte % 26.6 % (19-41); Mean Corp Hgb Conc 31.8 g/dL (32-36); Mean Corpuscular Hgb 28.2 pg (27.0-32.0); Mean Corpuscular Volume 88.7 fL (80-94); Mean Platelet Vol. 10.9 fl (6.2-12.0); Monocyte# 0.97 X10^3/uL; Monocyte% 9.9 % (0-10); NRBC Flagged by Analyzer 0 % (0-5); Neutrophil # 5.87 X10^3/uL (2.7-7.7); Neutrophil % 60.2 % (47-70); Platelet Count 238 K/mm3 (150-450); RBC Distribution Width CV 15.2 % (11.6-14.6); RBC Distribution Width SD 49.8 fl (35.1-43.9); Red Blood Count 4.78 M/mm3 (4.6-6.2); White Blood Count 9.8 K/mm3 (4.4-11.0)
[2022-11-30 07:24] LABS: ALB/GLOB Ratio 0.7 RATIO (0.9-2.4); AST(SGOT) 36 U/L (15-37); Alanine Aminotransfer ALT/SGPT 57 U/L (16-61); Albumin, Serum 2.8 g/dL (3.2-5.0); Alkaline Phosphatase 100 U/L (45-117); Anion Gap 10 (5-15); BUN 44 mg/dL (7-18); BUN/Creat Ratio 24.7 RATIO (10-20); Calcium,Total 8.9 mg/dL (8.5-10.1); Chloride 110 mmol/L (98-107); Cholesterol 83 mg/dL (200); Creatinine, Serum 1.78 mg/dL (0.70-1.30); EST Glomerular Filtration Rate 41 mL/min (>60); Est Glom Filt Rate - Afr Amer 50 mL/min (>60); Estimated Creatinine Clearance 42.72 ml/min; Globulin 4.3 g/dL (2.2-4.2); Glucose 85 mg/dL (74-106); High Density Lipoprotein 23 mg/dL; Potassium 4.1 mmol/L (3.5-5.1); Protein, Total 7.1 g/dL (6.4-8.2); Sodium Level 137 mmol/L (136-145); Triglycerides 124 mg/dL; Very Low Density Lipoprotein 25 mg/dL (5-40)
[2022-11-30 07:28] LABS: Hemoglobin A1c 6.3 % (3.8-5.6)
--- NOTE | 2022-11-30 07:51 | PN.HOSP_ITS ---
Objective Data Objective Data Vital Signs: Vital Signs Temp Pulse Resp BP Pulse Ox O2 Del Method 97.9 F 73 18 107/89 H 95 Bi-pap 11/30/22 05:40 11/30/22 05:40 11/30/22 05:40 11/30/22 05:40 11/30/22 05:40 11/30/22 05:40 Oxygen Delivery Method Bi-pap Weight: 321 lb 6.943 oz Body Mass Index (BMI) 46.0 Intake & Output: Intake and Output for Last 24 Hours 11/28/22 11/29/22 11/30/22 23:59 23:59 23:59 Intake Total 590 / 590 Output Total 400 / 400 Balance 190 / 190 Lab / Micro Data Result Diagrams: 11/30/22 06:00 11/30/22 06:00 Labs: Laboratory Results - last 24 hr 11/29/22 20:26: WBC 10.7, RBC 5.02, Hgb 14.3, Hct 43.8, MCV 87.3, MCH 28.5, MCHC 32.6, RDW Std Deviation 49.5 H, RDW Coeff of Jose 15.3 H, Plt Count 247, MPV 10.6, Immature Gran % (Auto) 0.600, Neut % (Auto) 66.2, Lymph % (Auto) 23.1, [place] % (Auto) 8.7, Eos % (Auto) 1.1, Baso % (Auto) 0.3, Absolute Neuts (auto) 7.1, Absolute Lymphs (auto) 2.47, Nucleated RBC % 0, ESR 54 H 11/29/22 20:26: Sodium 135 L, Potassium 5.2 H, Chloride 108 H, Carbon Dioxide 18.0 L, Anion Gap 9, BUN 47 H, Creatinine 1.81 H, Estim Creat Clear Calc 43.34, Est GFR (MDRD) Af Amer 49 L, Est GFR (MDRD) Non-Af 40 L, BUN/Creatinine Ratio 26.0 H, Glucose 132 H, Calcium 9.3, C-React Prot Ext Range < 2.90 11/29/22 20:26: Magnesium 2.0 11/30/22 00:15: S.aureus Protein A PCR NEGATIVE, MRSA (PCR) Negative 11/30/22 00:16: POC Glucose 110 H 11/30/22 05:46: POC Glucose 82 11/30/22 06:00: WBC 9.8, RBC 4.78, Hgb 13.5, Hct 42.4, MCV 88.7, MCH 28.2, MCHC 31.8 L, RDW Std Deviation 49.8 H, RDW Coeff of Jose 15.2 H, Plt Count 238, MPV 10.9, Immature Gran % (Auto) 0.900, Neut % (Auto) 60.2, Lymph % (Auto) 26.6, Mo no % (Auto) 9.9, Eos % (Auto) 2.2, Baso % (Auto) 0.2, Absolute Neuts (auto) 5.9, Absolute Lymphs (auto) 2.59, Nucleated RBC % 0 11/30/22 06:00: Sodium 137, Potassium 4.1, Chloride 110 H, Carbon Dioxide 17.0 L , Anion Gap 10, BUN 44 H, Creatinine 1.78 H, Estim Creat Clear Calc 42.72, Est GFR (MDRD) Af Amer 50 L, Est GFR (MDRD) Non-Af 41 L, BUN/Creatinine Ratio 24.7 H , Glucose 85, Calcium 8.9, Total Bilirubin 0.40, AST 36, ALT 57, Alkaline Phosphatase 100, Total Protein 7.1, Albumin 2.8 L, Globulin 4.3 H, Albumin/Globulin Ratio 0.7 L, Triglycerides 124, Cholesterol 83, LDL Cholesterol 35, VLDL Cholesterol 25, HDL Cholesterol 23 L 11/30/22 06:00: Hemoglobin A1c 6.3 H Radiography Diagnostic Testing: Radiology Impression Foot X-Ray 11/29/22 19:17 IMPRESSION: Soft tissue irregularity along the medial aspect of the first metatarsophalangeal joint. There is no underlying osseous destruction to suggest osteomyelitis. There is sclerosis of the tibial sesamoid and osteomyelitis cannot be entirely ruled out. Physical Exam Narrative Seen and examined. Patient wanted to try antibiotic for resolution of ulcer over right foot but it got worse therefore admitted. Physical exam General: Alert, Oriented x3, Cooperative, morbid obesity BMI 46.1 kg/m? HEENT: Atraumatic, PERRLA, EOMI, Normocephalic Oral: On nasal auto CPAP, deep oropharyngeal structures could not be visualized clearly. Neck: Supple, No JVD, Negative Carotid Bruits Lungs: Air entry diminished in bilateral lung bases. No crepitation/rhonchi Cardiovascular: Regular rate, Regular Rhythm, Normal S1, Normal S2, No murmurs Abdomen: Bowel Sounds Present, Soft, Non Tender, Non-Distended : No renal angle tenderness. No suprapubic tenderness. Extremities: No pitting edema, Capillary Refill Less than 3 Seconds Skin: Worsening of chronic ulcer over right first metatarsal region, diabetic ulcer. Wound photo reviewed, large ulcer spherical shape, about 2 cm with thickened edge, underlying tendon with slough possible androgenization tissue. Musculoskeletal: No Tenderness to Palpation of Joints or Extremities, bilateral knees and hip joints arthritis, ROM severely restricted. Left below-knee amputation. Neurological: Cranial nerves II-XII grossly intact, DTR 2+/4, decreased sensation to touch in bilateral lower legs below knee. Psych/Mental Status: Normal Affect, Appropriate. Patient wanted to try antibiotic Assessment & Plan Assessment/Plan (1) Non-pressure chronic ulcer of other part of right foot with necrosis of muscle: PLAN: Plan The patient is a 67 y/o M was brought by EMS for right foot diabetic ulcer with osteomyelitis with no improvement after recent IV antibiotic treatment with vancomycin and Zosyn as recommended by ID with a stop date 11/16/2022. #1. Acute on chronic right first metatarsal diabetic foot ulcer complicated with osteomyelitis, failed recent inpatient and outpatient IV antibiotic treatment: Patient is admitted on MedSurg floor. Patient was recently discharged on IV vancomycin and Zosyn on 10/09/2022 to detention. At that time he declined surgery and he wanted to salvage the foot. Culture showed multiple organisms Enterococcus corynebacterium and GNR. Investigative Writer Dr. Quiles is consulted. ID consult with wound culture, MRSA. Recent LES 1222 noted no acute ischemia however diminished TBI. Continue IV vancomycin and Zosyn. #2. Mild hyperkalemia: Potassium 5.2, repeat potassium normal. #3. CVA w/ Carotid disease: 06/2022 CVA w/ with left-sided facial droop and left upper extremity weakness secondary to multiple microembolic ischemic infarctions in the right cerebellar hemisphere complicated by bilateral carotid stenoses, worse right-sided carotid stenosis. Recent 11/19/[address] Shukla Vascular surgery with noted patient intention for carotid re-vascularization with planned CEA. Continue aspirin, plavix, statin, diabetic regimen with alteration as noted, hypertensive regimen. #4. Chronic anemia: Admission hemoglobin 13.3, baseline hemoglobin noted prior primarily 08-12, most recently noted prior to this 11/11/2019 312.1 prior to last discharge, continue to trend. #5. History of EtOH abuse in recovery, history of polysubstance abuse: [facility] ed continued sobriety and clean status. #6. Anxiety and depression: We will continue patient home duloxetine and appropriate regimen. #7. 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 A1c 6.3%. Most recent Accu-Chek 85. Lantus insulin decreased to 45 and subcutaneous twice daily. #8. COPD with allergic rhinitis: Not on any chronic inhalers, encourage continued tobacco cessation, ATC budesonide, PRN albuterol, HOB, IS parameters, continue patient home fluticasone regimen as needed. #9. Hypertension: Continue home regimen including lisinopril, hydrochlorothiazide, Coreg, PRN hydralazine. #10. Hyperlipidemia: l continue patient on statin therapy. LDL 35. HDL 23, low. #11. CKD stage IIIb: Admission BUN/creatinine 47/1.81, baseline creatinine 1.6- 2.0, continue to trend. Creatinine 1.78. #12. Former tobacco use: Encourage continued tobacco cessation. #13. GERD: We will continue patient on PPI. #14. CECILE: Maintain on BIPAP q HS #15. Hypothyroidism: We will continue patient home levothyroxine regimen #16. Morbid Obesity: Weight loss and lifestyle changes encouraged. #17. RLS: continue patient on Requip regimen. #18. DVT prophylaxis: SCDs, Lovenox. #19. CODE STATUS: Full code. Total time of the visit including total time spent in counseling or coordination of care, (more than 50% of the total time, spent in obtaining medical information from nurses and other ancillary care providers,explaining to the patient about labs, imaging, diagnosis and management of active complex medical conditions), discussion with consultants and wound nurse, review of labs and imaging is 50 minutes Charges/Coding Visit Charges Inpatient E&M: 73933 Subs Hosp L3
[2022-11-30] MEDS: busPIRone 5 MG Tablet 10 MG PO ×2 (08:30→21:52)
[2022-11-30] MEDS: Aspirin 81 MG TAB.CHEW PO (08:30)
[2022-11-30] MEDS: Folic Acid 1 MG Tablet PO (08:30)
[2022-11-30] MEDS: DULoxetine Hcl 60 MG Capsule PO (08:31)
[2022-11-30] MEDS: Cyanocobalamin 500 MCG Tablet PO (08:31)
[2022-11-30] MEDS: Clopidogrel Bisulfate 75 MG Tablet PO (08:31)
[2022-11-30] MEDS: Tolterodine Tartrate 2 MG CAP.SA PO (08:31)
[2022-11-30] MEDS: Ascorbic Acid 500 MG Tablet PO (08:31)
--- NOTE | 2022-11-30 08:36 | CON.PCM_ITS ---
Assessment & Plan Assessment/Plan (1) Osteomyelitis of ankle or foot, right, acute: PLAN: Exam performed Review of previous MRI suggest chronic osteomyelitis of the Right 1st MPJ present since October 2022 Arterial studies demonstrate TBI of 0.51 suggestive of poor healing potential As issue appears stable and chronic in nature, to enhance healing potential of partial 1st ray resection I recommend vascular consult. Will consider definitive amputation on Wednesday pending vascular input. I recommend ID consult. PAtient can heel weightbear on right in surgical shoe assisted by walker for transfer purposes Dressing with betadine, DSD, light paola wrap. (2) Non-pressure chronic ulcer of other part of right foot with necrosis of muscle: (3) Diabetic infection of right foot: HPI Consult Data Date of Consult: 11/30/22 HPI Narrative Reason for Consultation: Right foot osteomyelitis in setting of chronic diabetic wound HPI Narrative: ILIANA WANG, is a 67 M who presents with a chronic right foot ulceration. Denies constitutionals. Patient had an MRI in 10/22 suggesting possible osteomyelitis of the right great toe. Patient notes he was informed at that time he had a bone infection and should go to the hospital. Patient has not been seen since that time and presents to ED overnight stating he was told to come to the hospital 1 month prior. Patient stable at this time and has no other complaints. [facility] Medical History Acute CVA (cerebrovascular accident) Alcohol abuse Alcoholism in recovery Anxiety Anxiety and depression Arthritis Below knee amputation BiPAP (biphasic positive airway pressure) dependence CAD (coronary artery disease) Carotid stenosis with cerebral infarction less than 8 weeks ago Charcot's joint of foot due to diabetes Chronic renal failure, stage 3 (moderate) COPD (chronic obstructive pulmonary disease) Depression Diabetes mellitus with diabetic polyneuropathy Diabetes type 2, uncontrolled Diabetic foot ulcer associated with type 2 diabetes mellitus Diabetic neuropathy associated with type 2 diabetes mellitus Drug abuse Enlarged RV (right ventricle) Former smoker GERD (gastroesophageal reflux disease) GI bleed GI problem Grade I diastolic dysfunction H/O transfusion of whole blood Hallux limitus of right foot Hearing loss, left Hearing loss, right Hearing problem High triglycerides HTN (hypertension) Hyperlipidemia Hypertension Hypothyroidism Hypothyroidism Kidney disease New left bundle branch block Non-compliance On home oxygen therapy CECILE treated with BiPAP Osteoarthritis Osteoporosis Physical debility Pneumonia prostate problems Pulmonary hypertension Recurrent infections Sleep apnea Super obesity Thyroid disorder TIA (transient ischemic attack) Type 2 diabetes mellitus with foot ulcer Venous stasis dermatitis Vision problems Vitamin deficiency Home Medications fluticasone propionate 50 mcg/actuation nasal spray,suspension (Flonase Allergy Relief) 2 spray intranasal DAILY PRN PRN Sinus Congestion 02/14/18 [History Last Taken 10/05/22] bupropion HCl 150 mg tablet,12 hr sustained-release 150 mg PO BID DEPRESSION 03/21/20 [History Last Taken 11/29/22 08:00] duloxetine 60 mg capsule,delayed release 60 mg PO DAILY DEPRESSION 03/21/20 [History Last Taken 11/29/22 08:00] levothyroxine 75 mcg tablet 225 mcg PO DAILY@0600 thyroid 04/21/20 [History Last Taken 11/29/22 08:00] ergocalciferol (vitamin D2) 1,250 mcg (50,000 unit) capsule (Vitamin D2) 50,000 unit PO TH Check with primary doctor 06/09/22 [History Last Taken 11/26/22] albuterol sulfate 90 mcg/actuation aerosol inhaler (ProAir HFA) 2 inh inhalation Q4H PRN shortness of breath or wheezing #6.7 grams 06/13/22 [Rx Last Taken 10/04/22] carvedilol 12.5 mg tablet 12.5 mg PO BID 30 days #60 tabs 06/13/22 [Rx Last Taken 11/29/22 08:00] aspirin 81 mg chewable tablet 81 mg PO BREAKFAST heart health 10/05/22 [History Last Taken 11/29/22 08:00] atorvastatin 80 mg tablet 80 mg PO QHS cholesterol 10/05/22 [History Last Taken 11/28/22 22:00] clopidogrel 75 mg tablet 75 mg PO DAILY blood thinner 10/05/22 [History Last Taken 11/29/22 08:00] guaifenesin 1,200 mg tablet, extended release 12 hr (Mucus Relief ER) 600 mg PO BID congesttion 10/05/22 [History Last Taken 11/28/22 22:00] multivitamin with folic acid 400 mcg tablet 1 tab PO DAILYCM supplement 10/05/22 [History Last Taken 10/05/22] acetaminophen 325 mg tablet (Tylenol) 650 mg PO Q6H PRN PRN Pain 1-10 Or Fever>100.7 #30 tabs 10/09/22 [Rx Last Taken Unknown] bisacodyl 10 mg rectal suppository 10 mg SD DAILY PRN Constipation 11/29/22 [History Last Taken Unknown] buspirone 10 mg tablet 10 mg PO BID anxiety 11/29/22 [History Last Taken 11/29/22 08:00] folic acid 1 mg tablet 1 mg PO DAILY Check with primary doctor 11/29/22 [History Last Taken 11/29/22 08:00] ascorbic acid (vitamin C) 500 mg tablet (Vitamin C) 500 mg PO DAILY supplement 11/30/22 [History Last Taken 11/29/22] cyanocobalamin (vitamin B-12) 500 mcg tablet (Vitamin B-12) 500 mcg PO DAILY supplement 11/30/22 [History Last Taken 11/29/22] dulaglutide 1.5 mg/0.5 mL subcutaneous pen injector (Trulicity) 1.5 mg subcut BULLARD blood sugar 11/30/22 [History Last Taken 11/29/22] guaifenesin 600 mg tablet, extended release 12 hr 600 mg PO Q12H . 11/30/22 [History Last Taken 11/29/22] insulin glargine 100 unit/mL (3 mL) subcutaneous pen (Lantus Solostar U-100 Insulin) 50 unit subcut BID blood sugar 11/30/22 [History Last Taken 11/29/22] lisinopril 10 mg tablet 10 mg PO DAILY bp 11/30/22 [History Last Taken 11/30/22 0800] multivitamin,tx-minerals 1 tab PO DAILY health maintance 11/30/22 [History Last Taken 11/30/22] oxybutynin chloride 5 mg tablet,extended release 24 hr 5 mg PO DAILY bladder spasms 11/30/22 [History Last Taken 11/30/22] pantoprazole 40 mg tablet,delayed release 40 mg PO QHS stomach 11/30/22 [History Last Taken 11/29/22] potassium chloride 20 mEq oral packet 20 meq PO DAILY supplement 11/30/22 [Histo ry Last Taken 11/30/22] ropinirole 0.25 mg tablet 0.25 mg PO BID rls 11/30/22 [History Last Taken ] Allergy/AdvReac Type Severity Reaction Status Date / Time No Known Allergies Allergy Verified 11/19/22 12:57 Family History Mother Arthritis Diabetes Hypertension High cholesterol Osteoporosis Sister Breast cancer Cancer High cholesterol Brother Lung cancer High cholesterol Father Hypertension High cholesterol Surgical History Partial nontraumatic amputation of left foot Social History household members: none housing: apartment Smoking Status: Former smoker alcohol intake: former substance use type: does not use ROS Constitutional Constitutional: Denies change in weight, chills or headache(s) Eyes Eyes: Denies acute decrease in peripheral vision, change in eye color or discongugate gaze ENT HEENT: Denies bleeding gums, ear discharge or hoarseness Cardiovascular Cardiovascular: Denies abdominal edema, chest pain at rest or diaphoresis Respiratory/Chest Respiratory/Chest: Denies change in mental status, difficulty clearing secretions or excessive phlegm production Physical Exam Narrative BKA noted on left side Diminished pulses RLE w/ delayed capillary fill time and atrophic skin changes absent protective and light touch sensations full thickness wound down to capsule of the right 1st MPJ, mild periwound erythema/edema, minimal drainage, mixed fibrogranular base, dry appearance. No other signs of infection. Const alert Lab / Micro Data Result Diagrams: 11/30/22 06:00 11/30/22 06:00 Labs: Laboratory Results - last 24 hr 11/29/22 20:26: WBC 10.7, RBC 5.02, Hgb 14.3, Hct 43.8, MCV 87.3, MCH 28.5, MCHC 32.6, RDW Std Deviation 49.5 H, RDW Coeff of Jose 15.3 H, Plt Count 247, MPV 10.6, Immature Gran % (Auto) 0.600, Neut % (Auto) 66.2, Lymph % (Auto) 23.1, [place] % (Auto) 8.7, Eos % (Auto) 1.1, Baso % (Auto) 0.3, Absolute Neuts (auto) 7.1, Absolute Lymphs (auto) 2.47, Nucleated RBC % 0, ESR 54 H 11/29/22 20:26: Sodium 135 L, Potassium 5.2 H, Chloride 108 H, Carbon Dioxide 18.0 L, Anion Gap 9, BUN 47 H, Creatinine 1.81 H, Estim Creat Clear Calc 43.34, Est GFR (MDRD) Af Amer 49 L, Est GFR (MDRD) Non-Af 40 L, BUN/Creatinine Ratio 26.0 H, Glucose 132 H, Calcium 9.3, C-React Prot Ext Range < 2.90 11/29/22 20:26: Magnesium 2.0 11/30/22 00:15: S.aureus Protein A PCR NEGATIVE, MRSA (PCR) Negative 11/30/22 00:16: POC Glucose 110 H 11/30/22 05:46: POC Glucose 82 11/30/22 06:00: WBC 9.8, RBC 4.78, Hgb 13.5, Hct 42.4, MCV 88.7, MCH 28.2, MCHC 31.8 L, RDW Std Deviation 49.8 H, RDW Coeff of Jose 15.2 H, Plt Count 238, MPV 10.9, Immature Gran % (Auto) 0.900, Neut % (Auto) 60.2, Lymph % (Auto) 26.6, [place] % (Auto) 9.9, Eos % (Auto) 2.2, Baso % (Auto) 0.2, Absolute Neuts (auto) 5.9, Absolute Lymphs (auto) 2.59, Nucleated RBC % 0 11/30/22 06:00: Sodium 137, Potassium 4.1, Chloride 110 H, Carbon Dioxide 17.0 L , Anion Gap 10, BUN 44 H, Creatinine 1.78 H, Estim Creat Clear Calc 42.72, Est GFR (MDRD) Af Amer 50 L, Est GFR (MDRD) Non-Af 41 L, BUN/Creatinine Ratio 24.7 H , Glucose 85, Calcium 8.9, Total Bilirubin 0.40, AST 36, ALT 57, Alkaline Phosphatase 100, Total Protein 7.1, Albumin 2.8 L, Globulin 4.3 H, Albumin/Globulin Ratio 0.7 L, Triglycerides 124, Cholesterol 83, LDL Cholesterol 35, VLDL Cholesterol 25, HDL Cholesterol 23 L 11/30/22 06:00: Hemoglobin A1c 6.3 H Radiology Impression Foot X-Ray 11/29/22 19:17 IMPRESSION: Soft tissue irregularity along the medial aspect of the first metatarsophalangeal joint. There is no underlying osseous destruction to suggest osteomyelitis. There is sclerosis of the tibial sesamoid and osteomyelitis cannot be entirely ruled out. Electronically Signed: Humza Bravo DO at 19:40 EST ,
--- NOTE | 2022-11-30 08:52 | WOUNDNOTE ---
wound photo: right foot
[2022-11-30 08:59] VITALS: BP 95/65; PULSE 71; RESP 18; TEMP 36.3; O2SAT 98
--- NOTE | 2022-11-30 09:40 | CASEMGMT ---
Addendum entered by Jessica Blank 11/30/22 14:00: Pt is on surgery schedule for 12/02/22. Addendum entered by Jessica Blank 11/30/22 12:17: Saad returned call and shared that insurance cut pt lose after rehab as pt had returned to baseline. Saad stated it was anticipated that as pt was coming to [facility] that pt would have surgery and then return to SNF following this procedure because the surgery would liking mean pt would need ongoing rehab again. TANGELA updated MD Kessler. ATUL Bedolla Original Note: Social Work MD Kessler noted during morning rounds that pt shared SNF days were used up and may not be able to return to [facility]. TANGELA called Saad at [facility], where pt came from, to discuss concern that pt SNF days are up and to determine if this is true. TANGELA left message requesting a call back to plan for pt return if possible. ATUL Bedolla
--- NOTE | 2022-11-30 09:58 | EX.PCM.CON.S ---
Assessment & Plan Assessment/Plan (1) Osteomyelitis of ankle or foot, right, acute: PLAN: -prior PVR with normal perfusion with ankle, moderately diminished TBI with preserved waveforms -palpable pedal pulses correlate with PVR findings -A1c 6.3 -should have adequate perfusion to heal Ray amp HPI Consult Data Date of Consult: 11/30/22 HPI Narrative HPI Narrative: ILIANA WANG, is a 67 M who presents with worsening right great toe wound. Followed by Dr. Calderón as outpatient. He is known to me for right carotid disease with eventual plans for right CEA after foot/infectious issues resolved. He is currently on asa/plavix/statin. He is not able to fully describe what worsened with his foot that prompted him to be admitted last night. He had prior PVRs in Oct 2022 which showed normal DOMINGUEZ and ankle waveforms with diminished TBI 0.54 but well preserved digit waveforms. [facility] Medical History Acute CVA (cerebrovascular accident) Alcohol abuse Alcoholism in recovery Anxiety Anxiety and depression Arthritis Below knee amputation BiPAP (biphasic positive airway pressure) dependence CAD (coronary artery disease) Carotid stenosis with cerebral infarction less than 8 weeks ago Charcot's joint of foot due to diabetes Chronic renal failure, stage 3 (moderate) COPD (chronic obstructive pulmonary disease) Depression Diabetes mellitus with diabetic polyneuropathy Diabetes type 2, uncontrolled Diabetic foot ulcer associated with type 2 diabetes mellitus Diabetic neuropathy associated with type 2 diabetes mellitus Drug abuse Enlarged RV (right ventricle) Former smoker GERD (gastroesophageal reflux disease) GI bleed GI problem Grade I diastolic dysfunction H/O transfusion of whole blood Hallux limitus of right foot Hearing loss, left Hearing loss, right Hearing problem High triglycerides HTN (hypertension) Hyperlipidemia Hypertension Hypothyroidism Hypothyroidism Kidney disease New left bundle branch block Non-compliance On home oxygen therapy CECILE treated with BiPAP Osteoarthritis Osteoporosis Physical debility Pneumonia prostate problems Pulmonary hypertension Recurrent infections Sleep apnea Super obesity Thyroid disorder TIA (transient ischemic attack) Type 2 diabetes mellitus with foot ulcer Venous stasis dermatitis Vision problems Vitamin deficiency Home Medications fluticasone propionate 50 mcg/actuation nasal spray,suspension (Flonase Allergy Relief) 2 spray intranasal DAILY PRN PRN Sinus Congestion 02/14/18 [History Last Taken 10/05/22] bupropion HCl 150 mg tablet,12 hr sustained-release 150 mg PO BID DEPRESSION 03/21/20 [History Last Taken 11/29/22 08:00] duloxetine 60 mg capsule,delayed release 60 mg PO DAILY DEPRESSION 03/21/20 [History Last Taken 11/29/22 08:00] levothyroxine 75 mcg tablet 225 mcg PO DAILY@0600 thyroid 04/21/20 [History Last Taken 11/29/22 08:00] ergocalciferol (vitamin D2) 1,250 mcg (50,000 unit) capsule (Vitamin D2) 50,000 unit PO TH Check with primary doctor 06/09/22 [History Last Taken 11/26/22] albuterol sulfate 90 mcg/actuation aerosol inhaler (ProAir HFA) 2 inh inhalation Q4H PRN shortness of breath or wheezing #6.7 grams 06/13/22 [Rx Last Taken 10/04/22] carvedilol 12.5 mg tablet 12.5 mg PO BID 30 days #60 tabs 06/13/22 [Rx Last Taken 11/29/22 08:00] aspirin 81 mg chewable tablet 81 mg PO BREAKFAST heart health 10/05/22 [History Last Taken 11/29/22 08:00] atorvastatin 80 mg tablet 80 mg PO QHS cholesterol 10/05/22 [History Last Taken 11/28/22 22:00] clopidogrel 75 mg tablet 75 mg PO DAILY blood thinner 10/05/22 [History Last Taken 11/29/22 08:00] guaifenesin 1,200 mg tablet, extended release 12 hr (Mucus Relief ER) 600 mg PO BID congesttion 10/05/22 [History Last Taken 11/28/22 22:00] multivitamin with folic acid 400 mcg tablet 1 tab PO DAILYCM supplement 10/05/22 [History Last Taken 10/05/22] acetaminophen 325 mg tablet (Tylenol) 650 mg PO Q6H PRN PRN Pain 1-10 Or Fever>100.7 #30 tabs 10/09/22 [Rx Last Taken Unknown] bisacodyl 10 mg rectal suppository 10 mg GA DAILY PRN Constipation 11/29/22 [History Last Taken Unknown] buspirone 10 mg tablet 10 mg PO BID anxiety 11/29/22 [History Last Taken 11/29/22 08:00] folic acid 1 mg tablet 1 mg PO DAILY Check with primary doctor 11/29/22 [History Last Taken 11/29/22 08:00] ascorbic acid (vitamin C) 500 mg tablet (Vitamin C) 500 mg PO DAILY supplement 11/30/22 [History Last Taken 11/29/22] cyanocobalamin (vitamin B-12) 500 mcg tablet (Vitamin B-12) 500 mcg PO DAILY supplement 11/30/22 [History Last Taken 11/29/22] dulaglutide 1.5 mg/0.5 mL subcutaneous pen injector (Trulicity) 1.5 mg subcut BULLARD blood sugar 11/30/22 [History Last Taken 11/29/22] guaifenesin 600 mg tablet, extended release 12 hr 600 mg PO Q12H . 11/30/22 [History Last Taken 11/29/22] insulin glargine 100 unit/mL (3 mL) subcutaneous pen (Lantus Solostar U-100 Insulin) 50 unit subcut BID blood sugar 11/30/22 [History Last Taken 11/29/22] lisinopril 10 mg tablet 10 mg PO DAILY bp 11/30/22 [History Last Taken 11/30/22 0800] multivitamin,tx-minerals 1 tab PO DAILY health maintance 11/30/22 [History Last Taken 11/30/22] oxybutynin chloride 5 mg tablet,extended release 24 hr 5 mg PO DAILY bladder spasms 11/30/22 [History Last Taken 11/30/22] pantoprazole 40 mg tablet,delayed release 40 mg PO QHS stomach 11/30/22 [History Last Taken 11/29/22] potassium chloride 20 mEq oral packet 20 meq PO DAILY supplement 11/30/22 [History Last Taken 11/30/22] ropinirole 0.25 mg tablet 0.25 mg PO BID rls 11/30/22 [History Last Taken 11/29/22] Allergy/AdvReac Type Severity Reaction Status Date / Time No Known Allergies Allergy Verified 11/19/22 12:57 Family History Mother Arthritis Diabetes Hypertension High cholesterol Osteoporosis Sister Breast cancer Cancer High cholesterol Brother Lung cancer High cholesterol Father Hypertension High cholesterol Surgical History Partial nontraumatic amputation of left foot Social History household members: none housing: apartment Smoking Status: Former smoker alcohol intake: former substance use type: does not use ROS Constitutional Constitutional: Denies chills, fever(s), frequent falls, lethargy or weakness Eyes Eyes: Denies blind spots, change in vision or loss of vision ENT HEENT: Denies bleeding gums, hoarseness or sore throat Cardiovascular Cardiovascular: Denies abdominal pain, bluish discoloration of hand/feet, chest pain with activity, claudication, cold extremities, cyanosis, dyspnea on exertion, erythema on extremities, irregular heart rhythm, leg edema, leg ulcers, numbness in extremities or weakness in extremities Respiratory/Chest Respiratory/Chest: Denies cough, excessive phlegm production, shortness of breath at rest, shortness of breath with exertion or wheezing Gastrointestinal Gastrointestinal: Denies anorexia, change in stool character, constipation, diarrhea, melena or rectal bleeding Genitourinary Genitourinary: Denies dysuria or hematuria Musculoskeletal Musculoskeletal: Denies abnormal gait Integumentary Integumentary: Reports other Details: ; Denies erythema, non-healing lesions or wounds Neurologic Neurologic: Denies abnormal speech, focal weakness, headache(s), loss of vision, numbness, paresthesias or sensory deficit Hematologic/Lymphatic Hematologic/Lymphatic: Denies easy bleeding, easy bruising or lymphadenopathy Physical Exam Const alert, oriented x3 and no apparent distress General Appearance: cooperative and lethargic; Negative for combative Orientation / Consciousness: awake Exam Limitations: no limitations HEENT Head and Scalp: normocephalic and atraumatic Eyes EOMs intact bilaterally General Eye: normal appearance of both eyes Neck full ROM, no lymphadenopathy and thyroid normal General: trachea midline; Negative for lymphadenopathy or tenderness Thyroid: thyroid normal Lymph Lymphatic: Negative for no lymphadenopathy noted Resp normal respiratory effort and no use of accessory muscles Effort and Inspection: Negative for labored, stridor or audible wheezes Cardio regular rate and regular rhythm Peripheral Pulses: brachial pulses present, radial pulses present, posterior tibial pulses present and dorsalis pedis pulses present Back/Spine Cervical Spine: cervical ROM normal Extremity full ROM, normal capillary refill and no clubbing, cyanosis or edema Skin no rashes or lesions noted Skin Narrative: right great toe wound Neuro oriented x3, CN's II-XII intact bilaterally, no focal motor deficits and no sensory deficits noted Psych thought process normal, cooperative, affect normal, speech normal and activity/motor behavior normal Lab / Micro Data Result Diagrams: 11/30/22 06:00 11/30/22 06:00 Labs: Laboratory Results - last 24 hr 11/29/22 20:26: WBC 10.7, RBC 5.02, Hgb 14.3, Hct 43.8, MCV 87.3, MCH 28.5, MCHC 32.6, RDW Std Deviation 49.5 H, RDW Coeff of Jose 15.3 H, Plt Count 247, MPV 10.6, Immature Gran % (Auto) 0.600, Neut % (Auto) 66.2, Lymph % (Auto) 23.1, [place] % (Auto) 8.7, Eos % (Auto) 1.1, Baso % (Auto) 0.3, Absolute Neuts (auto) 7.1, Absolute Lymphs (auto) 2.47, Nucleated RBC % 0, ESR 54 H 11/29/22 20:26: Sodium 135 L, Potassium 5.2 H, Chloride 108 H, Carbon Dioxide 18.0 L, Anion Gap 9, BUN 47 H, Creatinine 1.81 H, Estim Creat Clear Calc 43.34, Est GFR (MDRD) Af Amer 49 L, Est GFR (MDRD) Non-Af 40 L, BUN/Creatinine Ratio 26.0 H, Glucose 132 H, Calcium 9.3, C-React Prot Ext Range < 2.90 11/29/22 20:26: Magnesium 2.0 11/30/22 00:15: S.aureus Protein A PCR NEGATIVE, MRSA (PCR) Negative 11/30/22 00:16: POC Glucose 110 H 11/30/22 05:46: POC Glucose 82 11/30/22 06:00: WBC 9.8, RBC 4.78, Hgb 13.5, Hct 42.4, MCV 88.7, MCH 28.2, MCHC 31.8 L, RDW Std Deviation 49.8 H, RDW Coeff of Jose 15.2 H, Plt Count 238, MPV 10.9, Immature Gran % (Auto) 0.900, Neut % (Auto) 60.2, Lymph % (Auto) 26.6, [place] % (Auto) 9.9, Eos % (Auto) 2.2, Baso % (Auto) 0.2, Absolute Neuts (auto) 5.9, Absolute Lymphs (auto) 2.59, Nucleated RBC % 0 11/30/22 06:00: Sodium 137, Potassium 4.1, Chloride 110 H, Carbon Dioxide 17.0 L, Anion Gap 10, BUN 44 H, Creatinine 1.78 H, Estim Creat Clear Calc 42.72, Est GFR (MDRD) Af Amer 50 L, Est GFR (MDRD) Non-Af 41 L, BUN/Creatinine Ratio 24.7 H, Glucose 85, Calcium 8.9, Total Bilirubin 0.40, AST 36, ALT 57, Alkaline Phosphatase 100, Total Protein 7.1, Albumin 2.8 L, Globulin 4.3 H, Albumin/Globulin Ratio 0.7 L, Triglycerides 124, Cholesterol 83, LDL Cholesterol 35, VLDL Cholesterol 25, HDL Cholesterol 23 L 11/30/22 06:00: Hemoglobin A1c 6.3 H Radiology Impression Foot X-Ray 11/29/22 19:17 IMPRESSION: Soft tissue irregularity along the medial aspect of the first metatarsophalangeal joint. There is no underlying osseous destruction to suggest osteomyelitis. There is sclerosis of the tibial sesamoid and osteomyelitis cannot be entirely ruled out. Electronically Signed: Humza Bravo DO at 19:40 EST Reading Location ID and State: [facility] / [place] Tel [phone], Service support ,
[2022-11-30 10:45] LABS: Bedside Glucose 85 mg/dL (74-106)
--- NOTE | 2022-11-30 14:33 | CON.PCM.ID_ITS ---
Assessment & Plan Assessment/Plan (1) Osteomyelitis of ankle or foot, right, acute: PLAN: Wound cx pending. Previous wound cx with enterococcus, acinetobacter, coryne, and anaerobes. On vanc/zosyn, OR planned. Thank you, will follow HPI Consult Data Date of Consult: 11/30/22 HPI Narrative Reason for Consultation: foot ulcer HPI Narrative: ILIANA WANG, is a 67 M who had admission 10/2022 for polymicrobial R foot osteo, discharged on 6 weeks iv vanc/zosyn. Abx completed 11/16/22 but picc not removed at [facility]. Came to hospital due to lack of improvement in foot. No new pain, redness, swelling, or drainage, no fever or chills. Admitted here, restarted vanc/zosyn, OR planned for amputation. Full ROS performed and neg except as noted above. [facility] Medical History Acute CVA (cerebrovascular accident) Alcohol abuse Alcoholism in recovery Anxiety Anxiety and depression Arthritis Below knee amputation BiPAP (biphasic positive airway pressure) dependence CAD (coronary artery disease) Carotid stenosis with cerebral infarction less than 8 weeks ago Charcot's joint of foot due to diabetes Chronic renal failure, stage 3 (moderate) COPD (chronic obstructive pulmonary disease) Depression Diabetes mellitus with diabetic polyneuropathy Diabetes type 2, uncontrolled Diabetic foot ulcer associated with type 2 diabetes mellitus Diabetic neuropathy associated with type 2 diabetes mellitus Drug abuse Enlarged RV (right ventricle) Former smoker GERD (gastroesophageal reflux disease) GI bleed GI problem Grade I diastolic dysfunction H/O transfusion of whole blood Hallux limitus of right foot Hearing loss, left Hearing loss, right Hearing problem High triglycerides HTN (hypertension) Hyperlipidemia Hypertension Hypothyroidism Hypothyroidism Kidney disease New left bundle branch block Non-compliance On home oxygen therapy CECILE treated with BiPAP Osteoarthritis Osteoporosis Physical debility Pneumonia prostate problems Pulmonary hypertension Recurrent infections Sleep apnea Super obesity Thyroid disorder TIA (transient ischemic attack) Type 2 diabetes mellitus with foot ulcer Venous stasis dermatitis Vision problems Vitamin deficiency Home Medications fluticasone propionate 50 mcg/actuation nasal spray,suspension (Flonase Allergy Relief) 2 spray intranasal DAILY PRN PRN Sinus Congestion 02/14/18 [History Last Taken 10/05/22] bupropion HCl 150 mg tablet,12 hr sustained-release 150 mg PO BID DEPRESSION 03/21/20 [History Last Taken 11/29/22 08:00] duloxetine 60 mg capsule,delayed release 60 mg PO DAILY DEPRESSION 03/21/20 [History Last Taken 11/29/22 08:00] levothyroxine 75 mcg tablet 225 mcg PO DAILY@0600 thyroid 04/21/20 [History Last Taken 11/29/22 08:00] ergocalciferol (vitamin D2) 1,250 mcg (50,000 unit) capsule (Vitamin D2) 50,000 unit PO TH Check with primary doctor 06/09/22 [History Last Taken 11/26/22] albuterol sulfate 90 mcg/actuation aerosol inhaler (ProAir HFA) 2 inh inhalation Q4H PRN shortness of breath or wheezing #6.7 grams 06/13/22 [Rx Last Taken 10/04/22] carvedilol 12.5 mg tablet 12.5 mg PO BID 30 days #60 tabs 06/13/22 [Rx Last Taken 11/29/22 08:00] aspirin 81 mg chewable tablet 81 mg PO BREAKFAST heart health 10/05/22 [History Last Taken 11/29/22 08:00] atorvastatin 80 mg tablet 80 mg PO QHS cholesterol 10/05/22 [History Last Taken 11/28/22 22:00] clopidogrel 75 mg tablet 75 mg PO DAILY blood thinner 10/05/22 [History Last Taken 11/29/22 08:00] guaifenesin 1,200 mg tablet, extended release 12 hr (Mucus Relief ER) 600 mg PO BID congesttion 10/05/22 [History Last Taken 11/28/22 22:00] multivitamin with folic acid 400 mcg tablet 1 tab PO DAILYCM supplement 10/05/22 [History Last Taken 10/05/22] acetaminophen 325 mg tablet (Tylenol) 650 mg PO Q6H PRN PRN Pain 1-10 Or Fever>100.7 #30 tabs 10/09/22 [Rx Last Taken Unknown] bisacodyl 10 mg rectal suppository 10 mg [place] DAILY PRN Constipation 11/29/22 [History Last Taken Unknown] buspirone 10 mg tablet 10 mg PO BID anxiety 11/29/22 [History Last Taken 11/29/22 08:00] folic acid 1 mg tablet 1 mg PO DAILY Check with primary doctor 11/29/22 [History Last Taken 11/29/22 08:00] ascorbic acid (vitamin C) 500 mg tablet (Vitamin C) 500 mg PO DAILY supplement 11/30/22 [History Last Taken 11/29/22] cyanocobalamin (vitamin B-12) 500 mcg tablet (Vitamin B-12) 500 mcg PO DAILY supplement 11/30/22 [History Last Taken 11/29/22] dulaglutide 1.5 mg/0.5 mL subcutaneous pen injector (Trulicity) 1.5 mg subcut BULLARD blood sugar 11/30/22 [History Last Taken 11/29/22] guaifenesin 600 mg tablet, extended release 12 hr 600 mg PO Q12H . 11/30/22 [History Last Taken 11/29/22] insulin glargine 100 unit/mL (3 mL) subcutaneous pen (Lantus Solostar U-100 Insulin) 50 unit subcut BID blood sugar 11/30/22 [History Last Taken 11/29/22] lisinopril 10 mg tablet 10 mg PO DAILY bp 11/30/22 [History Last Taken 11/30/22 0800] multivitamin,tx-minerals 1 tab PO DAILY health maintance 11/30/22 [History Last Taken 11/30/22] oxybutynin chloride 5 mg tablet,extended release 24 hr 5 mg PO DAILY bladder spasms 11/30/22 [History Last Taken 11/30/22] pantoprazole 40 mg tablet,delayed release 40 mg PO QHS stomach 11/30/22 [History Last Taken 11/29/22] potassium chloride 20 mEq oral packet 20 meq PO DAILY supplement 11/30/22 [History Last Taken 11/30/22] ropinirole 0.25 mg tablet 0.25 mg PO BID rls 11/30/22 [History Last Taken 11/29/22] Allergy/AdvReac Type Severity Reaction Status Date / Time No Known Allergies Allergy Verified 11/19/22 12:57 Family History Mother Arthritis Diabetes Hypertension High cholesterol Osteoporosis Sister Breast cancer Cancer High cholesterol Brother Lung cancer High cholesterol Father Hypertension High cholesterol Surgical History Partial nontraumatic amputation of left foot Social History household members: none housing: apartment Smoking Status: Former smoker alcohol intake: former substance use type: does not use Physical Exam Const alert, oriented x3 and no apparent distress General Appearance: cooperative and well developed HEENT normocephalic and head/scalp atraumatic Eyes PERRL and EOMs intact bilaterally Neck supple and No nodes Resp normal air movement and clear to auscultation bilaterally Cardio regular rate and regular rhythm GI soft to palpation, non-tender and non-distended Extremity General Extremity: edema Skin Skin Narrative: R foot wrapped Neuro CN's II-XII intact bilaterally Medical Records Data Medical Nutrition Assessment Dietitian: Malnutrition Criteria Met Start: 11/30/22 11:19 Freq: Status: Active Protocol: Document 11/30/22 11:20 [facility] (Rec: 11/30/22 11:20 [facility] [id number]) Nutrition Malnutrition Evidence of Malnutrition Exists Yes Malnutrition (moderate): Chronic Evidenced By Suboptimal Energy Intake ( Moderate),Weight Loss (Severe) Clinical Problem Chronic Disease or Condition Related Malnutrition Etiology moderate related to pt has not been hungry d/t crap in my head/sinuses, issues w/ R diabetic ulcer, and 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 Status Active Problem Recommendation Dietitian Recommendations/Changes Will changed diet to 1800 taras Consistent CHO /Cardiac Will order Ralph bid to help w / wound healing. Lab / Micro Data Attestation: I reviewed the patient's lab results. Result Diagrams: 11/30/22 06:00 11/30/22 06:00 Labs: Laboratory Results - last 24 hr 11/29/22 20:26: WBC 10.7, RBC 5.02, Hgb 14.3, Hct 43.8, MCV 87.3, MCH 28.5, MCHC 32.6, RDW Std Deviation 49.5 H, RDW Coeff of Jose 15.3 H, Plt Count 247, MPV 10.6, Immature Gran % (Auto) 0.600, Neut % (Auto) 66.2, Lymph % (Auto) 23.1, [place] % (Auto) 8.7, Eos % (Auto) 1.1, Baso % (Auto) 0.3, Absolute Neuts (auto) 7.1, Absolute Lymphs (auto) 2.47, Nucleated RBC % 0, ESR 54 H 11/29/22 20:26: Sodium 135 L, Potassium 5.2 H, Chloride 108 H, Carbon Dioxide 18.0 L, Anion Gap 9, BUN 47 H, Creatinine 1.81 H, Estim Creat Clear Calc 43.34, Est GFR (MDRD) Af Amer 49 L, Est GFR (MDRD) Non-Af 40 L, BUN/Creatinine Ratio 26.0 H, Glucose 132 H, Calcium 9.3, C-React Prot Ext Range < 2.90 11/29/22 20:26: Magnesium 2.0 11/30/22 00:15: S.aureus Protein A PCR NEGATIVE, MRSA (PCR) Negative 11/30/22 00:16: POC Glucose 110 H 11/30/22 05:46: POC Glucose 82 11/30/22 06:00: WBC 9.8, RBC 4.78, Hgb 13.5, Hct 42.4, MCV 88.7, MCH 28.2, MCHC 31.8 L, RDW Std Deviation 49.8 H, RDW Coeff of Jose 15.2 H, Plt Count 238, MPV 10.9, Immature Gran % (Auto) 0.900, Neut % (Auto) 60.2, Lymph % (Auto) 26.6, Long % (Auto) 9.9, Eos % (Auto) 2.2, Baso % (Auto) 0.2, Absolute Neuts (auto) 5.9, Absolute Lymphs (auto) 2.59, Nucleated RBC % 0 11/30/22 06:00: Sodium 137, Potassium 4.1, Chloride 110 H, Carbon Dioxide 17.0 L , Anion Gap 10, BUN 44 H, Creatinine 1.78 H, Estim Creat Clear Calc 42.72, Est GFR (MDRD) Af Amer 50 L, Est GFR (MDRD) Non-Af 41 L, BUN/Creatinine Ratio 24.7 H , Glucose 85, Calcium 8.9, Total Bilirubin 0.40, AST 36, ALT 57, Alkaline Phosphatase 100, Total Protein 7.1, Albumin 2.8 L, Globulin 4.3 H, Albumin/Globulin Ratio 0.7 L, Triglycerides 124, Cholesterol 83, LDL Cholesterol 35, VLDL Cholesterol 25, HDL Cholesterol 23 L 11/30/22 06:00: Hemoglobin A1c 6.3 H 11/30/22 10:19: POC Glucose 85 Micro: Microbiology 11/30/22 00:15 Wound - Right Foot Gram Stain - Final Radiology Impression Foot X-Ray 11/29/22 19:17 IMPRESSION: Soft tissue irregularity along the medial aspect of the first metatarsophalangeal joint. There is no underlying osseous destruction to suggest osteomyelitis. There is sclerosis of the tibial sesamoid and osteomyelitis cannot be entirely ruled out. Electronically Signed: Humza Bravo DO at 19:40 EST ,
[2022-11-30 15:00] VITALS: BP 109/64; PULSE 74; RESP 18; TEMP 36.8; O2SAT 97
[2022-11-30] MEDS: Fluticasone 0.05% 1 SPRAY NASAL.SRY 2 SPRAY NASAL (15:51)
[2022-11-30 16:20] LABS: Bedside Glucose 92 mg/dL (74-106)
[2022-11-30 21:45] VITALS: BP 123/61; PULSE 85; RESP 18; TEMP 36.5; O2SAT 98
[2022-11-30] MEDS: Carvedilol 12.5 MG Tablet PO (21:52)
[2022-11-30 22:25] LABS: Bedside Glucose 109 mg/dL (74-106)
[2022-12-01 04:28] VITALS: BP 93/58; PULSE 83; RESP 18; TEMP 37.1; O2SAT 97
[2022-12-01] MEDS: Levothyroxine 75 MCG Tablet 225 MCG PO (04:33)
[2022-12-01 05:00] LABS: Bedside Glucose 92 mg/dL (74-106)
[2022-12-01 06:46] LABS: Absolute Lymphocyte Count 2.38 X10^3/uL (0.83-4.51); Absolute Neutrophil Count 5.8 X10^3/uL (2.0-7.7); Basophil# 0.04 X10^3/uL; Basophil% 0.4 % (0-1); Eosinophil# 0.26 X10^3/uL; Eosinophils% 2.8 % (0-5); Hematocrit 41.4 % (40-54); Hemoglobin 13.2 g/dL (13.0-16.5); Lymphocyte # 2.38 X10^3/ul (0.83-4.51); Lymphocyte % 25.4 % (19-41); Mean Corp Hgb Conc 31.9 g/dL (32-36); Mean Corpuscular Hgb 28.1 pg (27.0-32.0); Mean Corpuscular Volume 88.3 fL (80-94); Mean Platelet Vol. 10.9 fl (6.2-12.0); Monocyte# 0.83 X10^3/uL; Monocyte% 8.9 % (0-10); NRBC Flagged by Analyzer 0 % (0-5); Neutrophil # 5.75 X10^3/uL (2.7-7.7); Neutrophil % 61.4 % (47-70); Platelet Count 253 K/mm3 (150-450); RBC Distribution Width CV 15.4 % (11.6-14.6); RBC Distribution Width SD 50.4 fl (35.1-43.9); Red Blood Count 4.69 M/mm3 (4.6-6.2); White Blood Count 9.4 K/mm3 (4.4-11.0)
--- NOTE | 2022-12-01 07:00 | EKG12_ITS ---
Test Reason : PRE-OP Blood Pressure : / mmHG Vent. Rate : 077 BPM Atrial Rate : 077 BPM P-R Int : 224 ms QRS Dur : 102 ms QT Int : 396 ms P-R-T Axes : -13 061 078 degrees QTc Int : 448 ms Sinus rhythm with sinus arrhythmia with 1st degree A-V block Nonspecific ST abnormality Abnormal ECG When compared with ECG of 11-JUN-2022 02:51, No significant change was found Confirmed by AMANDA DACOSTA, JONH ([id number]), international editorial producer ALYSSA DE ANDA ([id number]) on 12/04/2022 9:08:29 AM Referred By: SMITA Confirmed By:SHANE PATEL MD
[2022-12-01 07:36] LABS: Anion Gap 10 (5-15); BUN 34 mg/dL (7-18); Calcium,Total 8.7 mg/dL (8.5-10.1); Chloride 109 mmol/L (98-107); Creatinine, Serum 1.79 mg/dL (0.70-1.30); EST Glomerular Filtration Rate 41 mL/min (>60); Est Glom Filt Rate - Afr Amer 49 mL/min (>60); Estimated Creatinine Clearance 42.48 ml/min; Glucose 89 mg/dL (74-106); Potassium 3.9 mmol/L (3.5-5.1); Sodium Level 137 mmol/L (136-145)
[2022-12-01 07:50] LABS: Thyroid Stim Hormone (TSH) 0.02 uIU/mL (0.358-3.74)
[2022-12-01] MEDS: Carvedilol 12.5 MG Tablet PO ×2 (08:04→20:44)
[2022-12-01] MEDS: Pantoprazole Sodium 40 MG Tablet PO ×2 (08:05→20:44)
[2022-12-01] MEDS: Aspirin 81 MG TAB.CHEW PO (08:05)
[2022-12-01] MEDS: Clopidogrel Bisulfate 75 MG Tablet PO (08:05)
[2022-12-01] MEDS: Folic Acid 1 MG Tablet PO (08:05)
[2022-12-01] MEDS: busPIRone 5 MG Tablet 10 MG PO ×2 (08:05→20:44)
[2022-12-01] MEDS: Cyanocobalamin 500 MCG Tablet PO (08:05)
[2022-12-01] MEDS: Lisinopril 10 MG Tablet PO (08:05)
[2022-12-01] MEDS: Pramipexole Di-HCl 0.125 MG Tablet PO ×2 (08:05→20:44)
[2022-12-01] MEDS: buPROPion (SR) 150 MG Tablet.SA PO ×2 (08:05→20:44)
[2022-12-01] MEDS: Ascorbic Acid 500 MG Tablet PO (08:05)
[2022-12-01] MEDS: DULoxetine Hcl 60 MG Capsule PO (08:05)
[2022-12-01] MEDS: Tolterodine Tartrate 2 MG CAP.SA PO (08:05)
[2022-12-01 08:57] VITALS: BP 128/82; PULSE 75; RESP 18; TEMP 36.6; O2SAT 95
--- NOTE | 2022-12-01 09:27 | PN_ITS ---
Subjective Subjective Patient denies constitutional symtpoms, patient denies pain, no changes overnight. Objective Data Objective Data Vital Signs: Vital Signs Temp Pulse Resp BP Pulse Ox O2 Del Method 97.8 F 75 18 128/82 H 95 Room Air 12/01/22 08:57 12/01/22 08:57 12/01/22 08:57 12/01/22 08:57 12/01/22 08:57 12/01/22 08:59 Oxygen Delivery Method Room Air Weight: 145.921 kg Body Mass Index (BMI) 46.0 Intake & Output: Intake and Output for Last 24 Hours 11/29/22 11/30/22 12/01/22 23:59 23:59 23:59 Intake Total 2145 / 2145 100 / 100 Output Total 400 / 400 Balance 1745 / 1745 100 / 100 Medical Nutrition Assessment Dietitian: Malnutrition Criteria Met Start: 11/30/22 11:19 Freq: Status: Active Protocol: Document 11/30/22 11:20 SLA (Rec: 11/30/22 11:20 AME [id number]) Nutrition Malnutrition Evidence of Malnutrition Exists Yes Malnutrition (moderate): Chronic Evidenced By Suboptimal Energy Intake ( Moderate),Weight Loss (Severe) Clinical Problem Chronic Disease or Condition Related Malnutrition Etiology moderate related to pt has not been hungry d/t crap in my head/sinuses, issues w/ R diabetic ulcer, and disliked food [facility]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 Status Active Problem Recommendation Dietitian Recommendations/Changes Will changed diet to 1800 taras Consistent CHO /Cardiac Will order Ralph bid to help w / wound healing. Lab / Micro Data Result Diagrams: 12/01/22 05:50 12/01/22 05:50 Labs: Laboratory Results - last 24 hr 11/30/22 10:19: POC Glucose 85 11/30/22 15:46: POC Glucose 92 11/30/22 21:47: POC Glucose 109 H 12/01/22 04:33: POC Glucose 92 12/01/22 05:50: WBC 9.4, RBC 4.69, Hgb 13.2, Hct 41.4, MCV 88.3, MCH 28.1, MCHC 31.9 L, RDW Std Deviation 50.4 H, RDW Coeff of Jose 15.4 H, Plt Count 253, MPV 10.9, Immature Gran % (Auto) 1.100 H, Neut % (Auto) 61.4, Lymph % (Auto) 25.4, Lea % (Auto) 8.9, Eos % (Auto) 2.8, Baso % (Auto) 0.4, Absolute Neuts (auto) 5.8, Absolute Lymphs (auto) 2.38, Nucleated RBC % 0 12/01/22 05:50: Sodium 137, Potassium 3.9, Chloride 109 H, Carbon Dioxide 18.0 L , Anion Gap 10, BUN 34 H, Creatinine 1.79 H, Estim Creat Clear Calc 42.48, Est GFR (MDRD) Af Amer 49 L, Est GFR (MDRD) Non-Af 41 L, BUN/Creatinine Ratio 19.0, Glucose 89, Calcium 8.7 12/01/22 05:50: TSH 0.02 L Micro: Microbiology 11/30/22 00:15 Wound - Right Foot Gram Stain - Final Physical Exam Narrative BKA noted on left side Diminished pulses RLE w/ delayed capillary fill time and atrophic skin changes absent protective and light touch sensations full thickness wound down to capsule of the right 1st MPJ, mild periwound erythema/edema, minimal drainage, mixed fibrogranular base, dry appearance. No other signs of infection. Const alert Assessment & Plan Assessment/Plan (1) Osteomyelitis of ankle or foot, right, acute: PLAN: Exam performed Review of previous MRI suggest chronic osteomyelitis of the Right 1st MPJ present since October 2022 Arterial studies demonstrate TBI of 0.51 suggestive of poor healing potential Vascular evaluated patient feels partial 1st ray should heal Planning for partial 1st ray resection on wednesday12/03/22 @ 7:30am Patient NPO after midnight dressing changed today, no acute changes. (2) Non-pressure chronic ulcer of other part of right foot with necrosis of muscle: (3) Diabetic infection of right foot:
--- NOTE | 2022-12-01 10:07 | PCM.PN.ID ---
Physical Exam Narrative Feeling better, no fever, no n/v/d. Const alert and no apparent distress Resp normal air movement and clear to auscultation bilaterally Cardio regular rate and regular rhythm GI soft to palpation, non-tender and non-distended Skin Skin Narrative: foot wrapped ID ID: Route of nutrition/ use of supplements: [] Nutritional Intake: [] IV Site: [] Abreu Catheter: [] Assessment & Plan Assessment/Plan (1) Osteomyelitis of ankle or foot, right, acute: PLAN: Wound cx neg so far. Previous wound cx with enterococcus, acinetobacter, coryne, and anaerobes. On vanc/zosyn, OR planned. will follow
[2022-12-01 10:42] LABS: Vancomycin, Trough Level 31.7 ug/mL (5.0-15.0)
--- NOTE | 2022-12-01 11:00 | PCM.RX.CS ---
Consult Pharmacy has been consulted to manage selected antiobiotic: Vancomycin Type of Consult: Follow-up Prior Doses of Antibiotics Received/Current Regimen: Medications Vancomycin HCl 1,250 mg/ (Sodium Chloride) 275 mls @ 167 mls/hr IV Q12H FAITH Last Admin: 12/01/22 10:29 Dose: 167 mls/hr Labs: Sodium 137 mmol/L (136-145) 12/01/22 05:50 Potassium 3.9 mmol/L (3.5-5.1) 12/01/22 05:50 Chloride 109 mmol/L (98-107) H 12/01/22 05:50 Carbon Dioxide 18.0 mmol/L (21.0-32.0) L 12/01/22 05:50 Anion Gap 10 (5-15) 12/01/22 05:50 BUN 34 mg/dL (7-18) H 12/01/22 05:50 Creatinine 1.79 mg/dL (0.70-1.30) H 12/01/22 05:50 Est GFR (MDRD) Af Amer 49 mL/min (>60) L 12/01/22 05:50 Est GFR (MDRD) Non-Af 41 mL/min (>60) L 12/01/22 05:50 BUN/Creatinine Ratio 19.0 RATIO (10-20) 12/01/22 05:50 Glucose 89 mg/dL (74-106) 12/01/22 05:50 Vancomycin Trough 31.7 ug/mL (5.0-15.0) H 12/01/22 09:47 Microbiology: Microbiology 11/30/22 00:15 Wound - Right Foot Gram Stain - Final 11/30/22 00:15 Wound - Right Foot Wound Culture - Preliminary Goal Trough: 15-20 mcg/mL Pharmacy Plan for Drug Dosing: Trough above goal. Hold vancomycin and check random level tomorrow with morning labs. Pharmacy Service will continue to monitor and adjust dosing as required. Follow-Up Labs: Trough Vancomycin - Random 12/02 @ 0600
--- NOTE | 2022-12-01 11:20 | CASEMGMT ---
Addendum entered by Jessica Blank 12/01/22 11:36: SW sent referral to [facility]. Will await response. ATUL Bedolla Original Note: Social Work ? SW in to meet with pt following update from pt nurse that pt would like placement at a new nursing facility. Pt came from [facility]. SW introduced self and role at the hospital. Pt presented irritable, sighing loudly when SW asked to speak, however pt was agreeable to discussing discharge planning. A list of SNF providers including quality and resource use data consistent with the patient?s preferred geographic region, medical needs, and insurance network were provided from the [facility] Guide. Pt did not review list, stated [facility]. SW explained [facility] does not appear to be in network with pt insurance. Pt stated I'm pretty sure my insurance can handle the [facility], I pay them enough. SW discussed other options in network that are on pt list. Pt voiced that [facility] is only choice and that pt would call them ([facility]) today to make arrangements. SW will send referral to [facility] and ask if in network with pt insurance. PLAN: [facility] vs[facility] other SNF ATUL Bedolla?
--- NOTE | 2022-12-01 12:07 | PCM.PN.HOSP ---
Subjective Subjective Doing well, no issues overnight. Renal function is at baseline plan for operative intervention tomorrow Objective Data Objective Data Vital Signs: Vital Signs Temp Pulse Resp BP Pulse Ox O2 Del Method 97.8 F 75 18 128/82 H 95 Room Air 12/01/22 08:57 12/01/22 08:57 12/01/22 08:57 12/01/22 08:57 12/01/22 08:57 12/01/22 08:59 Oxygen Delivery Method Room Air Weight: 321 lb 11.2 oz Body Mass Index (BMI) 46.0 Intake & Output: Intake and Output for Last 24 Hours 11/30/22 12/01/22 12/02/22 03:59 03:59 03:59 Intake Total 540 / 540 1655 / 1655 155.77 / 155.77 Output Total 400 / 400 Balance 140 / 140 1655 / 1655 155.77 / 155.77 Medical Nutrition Assessment Dietitian: Malnutrition Criteria Met Start: 11/30/22 11:19 Freq: Status: Active Protocol: Document 11/30/22 11:20 SLA (Rec: 11/30/22 11:20 SLA [id number]) Nutrition Malnutrition Evidence of Malnutrition Exists Yes Malnutrition (moderate): Chronic Evidenced By Suboptimal Energy Intake ( Moderate),Weight Loss (Severe) Clinical Problem Chronic Disease or Condition Related Malnutrition Etiology moderate related to pt has not been hungry d/t crap in my head/sinuses, issues w/ R diabetic ulcer, and [place] [facility]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 Status Active Problem Recommendation Dietitian Recommendations/Changes Will changed diet to 1800 taras Consistent CHO /Cardiac Will order Ralph bid to help w / wound healing. Lab / Micro Data Result Diagrams: 12/01/22 05:50 12/01/22 05:50 Labs: Laboratory Results - last 24 hr 11/30/22 15:46: POC Glucose 92 11/30/22 21:47: POC Glucose 109 H 12/01/22 04:33: POC Glucose 12/01/22 05:50: WBC 9.4, RBC 4.69, Hgb 13.2, Hct 41.4, MCV 88.3, MCH 28.1, MCHC 31.9 L, RDW Std Deviation 50.4 H, RDW Coeff of Jose 15.4 H, Plt Count 253, MPV 10.9, Immature Gran % (Auto) 1.100 H, Neut % (Auto) 61.4, Lymph % (Auto) 25.4, Bryan % (Auto) 8.9, Eos % (Auto) 2.8, Baso % (Auto) 0.4, Absolute Neuts (auto) 5.8, Absolute Lymphs (auto) 2.38, Nucleated RBC % 0 12/01/22 05:50: Sodium 137, Potassium 3.9, Chloride 109 H, Carbon Dioxide 18.0 L, Anion Gap 10, BUN 34 H, Creatinine 1.79 H, Estim Creat Clear Calc 42.48, Est GFR (MDRD) Af Amer 49 L, Est GFR (MDRD) Non-Af 41 L, BUN/Creatinine Ratio 19.0, Glucose 89, Calcium 8.7 12/01/22 05:50: TSH 0.02 L 12/01/22 09:47: Vancomycin Trough 31.7 H Micro: Microbiology 11/30/22 00:15 Wound - Right Foot Gram Stain - Final 11/30/22 00:15 Wound - Right Foot Wound Culture - Preliminary Physical Exam Narrative General: Alert, Oriented x3, Cooperative, No apparent distress, morbidly obese HEENT: Atraumatic, PERRLA, EOMI, Normocephalic Oral: Moist Mucosa Neck: Supple, No JVD Lungs: Clear to auscultation, Normal air movement, No rhonchi, No wheeze, No rales Cardiovascular: Regular rate, Regular Rhythm, Normal S1, Normal S2, No murmurs Abdomen: Soft, Non Tender, Non-Distended, No Hepato-splenomegaly Extremities: No edema, Capillary Refill Less than 3 Seconds, left BKA Skin: Right lower extremity wound is dressed and wrapped Musculoskeletal: No Tenderness to Palpation of Joints or Extremities Neurological: Cranial nerves II-XII grossly intact, Motor Exam 5/5 strength throughout, Sensory exam intact to light touch and pain Psych/Mental Status: Normal Affect, Appropriate Assessment & Plan Assessment/Plan (1) Non-pressure chronic ulcer of other part of right foot with necrosis of muscle: PLAN: Plan #1. Acute on chronic right first metatarsal diabetic foot ulcer complicated with osteomyelitis, failed recent inpatient and outpatient IV antibiotic treatment: Patient is admitted on MedSur floor. Patient was recently discharged on IV vancomycin and Zosyn on 10/09/2022 to residential. At that time he declined surgery and he wanted to salvage the foot. Culture showed multiple organisms Enterococcus corynebacterium and GNR. Environmental Remediation Engineer Dr. Quiles is consulted. ID consult with wound culture, MRSA. Recent LES 1222 noted no acute ischemia however diminished TBI. Continue IV vancomycin and Zosyn. 12/01/2022: Plan for OR tomorrow #2. Mild hyperkalemia: Potassium 5.2, repeat potassium normal. #3. CVA w/ Carotid disease: 06/2022 CVA w/ with left-sided facial droop and left upper extremity weakness secondary to multiple microembolic ischemic infarctions in the right cerebellar hemisphere complicated by bilateral carotid stenoses, worse right-sided carotid stenosis. Recent 11/19/[address] Shukla Vascular surgery with noted patient intention for carotid re-vascularization with planned CEA. Continue aspirin, plavix, statin, diabetic regimen with alteration as noted, hypertensive regimen. #4. Chronic anemia: Admission hemoglobin 13.3, baseline hemoglobin noted prior primarily 08-12, most recently noted prior to this 11/11/2019 312.1 prior to last discharge, continue to trend. #5. History of EtOH abuse in recovery, history of polysubstance abuse: Encouraged continued sobriety and clean status. #6. Anxiety and depression: We will continue patient home duloxetine and appropriate regimen. #7. 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 A1c 6.3%. Most recent Accu-Chek 85. Lantus insulin decreased to 45 and subcutaneous twice daily. ? We will monitor make adjustments as necessary #8. COPD with allergic rhinitis: Not on any chronic inhalers, encourage continued tobacco cessation, ATC budesonide, PRN albuterol, HOB, IS parameters, continue patient home fluticasone regimen as needed. #9. Hypertension: Continue home regimen including lisinopril, hydrochlorothiazide, Coreg, PRN hydralazine. #10. Hyperlipidemia: l continue patient on statin therapy. LDL 35. HDL 23, low. #11. CKD stage IIIb: Admission BUN/creatinine 47/1.81, baseline creatinine 1.6-2.0, continue to trend. Creatinine 1.78. #12. Former tobacco use: Encourage continued tobacco cessation. #13. GERD: We will continue patient on PPI. #14. CECILE: Maintain on BIPAP q HS #15. Hypothyroidism: We will continue patient home levothyroxine regimen #16. Morbid Obesity: Weight loss and lifestyle changes encouraged. #17. RLS: continue patient on Requip regimen. DVT: Lovenox Charges/Coding Visit Charges Inpatient E&M: 18692 Subs Hosp L2
[2022-12-01 13:05] LABS: Bedside Glucose 134 mg/dL (74-106)
[2022-12-01 14:18] VITALS: BP 115/72; PULSE 77; RESP 18; TEMP 36.8; O2SAT 97
[2022-12-01 16:20] LABS: Bedside Glucose 133 mg/dL (74-106)
[2022-12-01 20:42] VITALS: BP 118/52; PULSE 78; RESP 18; TEMP 36.6; O2SAT 98
[2022-12-01] MEDS: Atorvastatin Calcium 80 MG Tablet PO (20:44)
[2022-12-01 21:16] LABS: Bedside Glucose 154 mg/dL (74-106)
[2022-12-02] VITALS (11 sets, daily range): BP systolic 103–125; BP diastolic 61–92; PULSE 70–95; RESP 16–18; TEMP 36–37.2; O2SAT 93–99; BMI 46.1
[2022-12-02 05:40] LABS: Bedside Glucose 118 mg/dL (74-106)
[2022-12-02 06:21] LABS: Absolute Lymphocyte Count 2.15 X10^3/uL (0.83-4.51); Absolute Neutrophil Count 6.6 X10^3/uL (2.0-7.7); Basophil# 0.04 X10^3/uL; Basophil% 0.4 % (0-1); Eosinophil# 0.36 X10^3/uL; Eosinophils% 3.6 % (0-5); Hematocrit 40.9 % (40-54); Lymphocyte # 2.15 X10^3/ul (0.83-4.51); Lymphocyte % 21.4 % (19-41); Mean Corp Hgb Conc 31.8 g/dL (32-36); Mean Corpuscular Hgb 28.1 pg (27.0-32.0); Mean Corpuscular Volume 88.5 fL (80-94); Mean Platelet Vol. 10.7 fl (6.2-12.0); Monocyte# 0.85 X10^3/uL; Monocyte% 8.4 % (0-10); NRBC Flagged by Analyzer 0 % (0-5); Neutrophil % 65.5 % (47-70); Platelet Count 284 K/mm3 (150-450); RBC Distribution Width CV 15.3 % (11.6-14.6); RBC Distribution Width SD 50.1 fl (35.1-43.9); Red Blood Count 4.62 M/mm3 (4.6-6.2); White Blood Count 10.1 K/mm3 (4.4-11.0)
[2022-12-02] MEDS: Lactated Ringers 1,000 ML 15 ML IV (06:50)
[2022-12-02 06:52] LABS: Anion Gap 11 (5-15); BUN 24 mg/dL (7-18); BUN/Creat Ratio 13.5 RATIO (10-20); Calcium,Total 8.7 mg/dL (8.5-10.1); Chloride 111 mmol/L (98-107); Creatinine, Serum 1.78 mg/dL (0.70-1.30); EST Glomerular Filtration Rate 41 mL/min (>60); Est Glom Filt Rate - Afr Amer 50 mL/min (>60); Estimated Creatinine Clearance 42.72 ml/min; Glucose 125 mg/dL (74-106); Potassium 3.9 mmol/L (3.5-5.1); Sodium Level 140 mmol/L (136-145)
[2022-12-02 06:55] LABS: Vancomycin, Random Level 22.3 ug/mL (0.0-15.0)
--- NOTE | 2022-12-02 07:12 | WOUNDNOTE ---
Pt currently down for surgery with Dr Calderón.
--- NOTE | 2022-12-02 07:30 | BON_PTH ---
PATIENT: ILIANA WANG LOC: MS3 U#:[id number] AGE/SX: 67/M [place] [facility] [place]: Dr. Dimitri Flanagan MD : 1955 BED: 1 DIS: 12/04/2022 SPEC #: [id number] RECD: 12/02/22 11:24 STATUS: IRENE REKali #: [id number] ROLLY: 12/02/22 07:[address]: Star Calderón DEPT: SURGICAL PATHOLOGY RECD BY: Gerson Fowler ENTERED: 12/02/22 13:42 SP TYPE: Bone OTHR DR: MD Dr. Mehdi Garduno MD Dr. Jeffrey Wunning, DPM MD Dr. Kory Gerardo MD Dr. Robert Leininger, MD WANDA SIMMONS, CREATIVE SERVICES PRODUCER-C Tissues: A - Bone of foot, NOS B - Bone of foot, NOS Procedures: Decalcification bone/plaque Surgery Specimen Level III HEADER OPERATION: Foot partial first ray resection PRE-OP DIAGNOSIS: Osteomyelitis of ankle/foot, right, acute TISSUE SUBMITTED: A ? Right foot first metatarsal head, B - Right first metatarsal clearance fragment MICROSCOPIC DIAGNOSIS A. Right foot first metatarsal head: Bone with acute osteomyelitis. Adherent piece of soft tissue with acute and chronic inflammation. B. Clearance fragment right first metatarsal: Pieces of bone with chronic inflammation and reactive changes, negative for acute osteomyelitis. ARNOLD:licha 12/07/2022 MICROSCOPIC DESCRIPTION Slides are reviewed. GROSS DESCRIPTION A - Received in fixative is one container labeled with the patient's name and designated right foot first metatarsal head. The specimen consists of a piece of bone measuring 3 x 2.5 x 2 cm. A small piece of soft tissue is attached at one end which measures 2 x 0.5 x 0.1 cm. Commercial Center Manager sections are submitted in two cassettes as follows: 1 ? soft tissue, 2 ? bone after decalcification. B - Received in fixative is one container labeled with the patient's name and designated clearance fragment right first metatarsal. The specimen consists of two pieces of bone measuring 2.8 x 2 x 0.5 cm and 1.7 x 1.5 x 1 cm. Commercial Center Manager sections are submitted in two cassettes after decalcification. / ARNOLD:licha 12/02/2022 TC:2 CPT: 30460 x2, 04799 x2
[2022-12-02] MEDS: Bupivacaine Mpf 0.5% 30 ML VIAL (07:57)
--- NOTE | 2022-12-02 08:16 | NURSING ---
pt remains off unit in OR area
--- NOTE | 2022-12-02 08:57 | PCM.RX.CS ---
Consult Pharmacy has been consulted to manage selected antiobiotic: Vancomycin Type of Consult: Follow-up Prior Doses of Antibiotics Received/Current Regimen: Previously on 1250mg iv q12h. Last dose 12.01.22 @1029. Labs: Sodium 140 mmol/L (136-145) 12/02/22 05:48 Potassium 3.9 mmol/L (3.5-5.1) 12/02/22 05:48 Chloride 111 mmol/L (98-107) H 12/02/22 05:48 Carbon Dioxide 18.0 mmol/L (21.0-32.0) L 12/02/22 05:48 Anion Gap 11 (5-15) 12/02/22 05:48 BUN 24 mg/dL (7-18) H 12/02/22 05:48 Creatinine 1.78 mg/dL (0.70-1.30) H 12/02/22 05:48 Est GFR (MDRD) Af Amer 50 mL/min (>60) L 12/02/22 05:48 Est GFR (MDRD) Non-Af 41 mL/min (>60) L 12/02/22 05:48 BUN/Creatinine Ratio 13.5 RATIO (10-20) 12/02/22 05:48 Glucose 125 mg/dL (74-106) H 12/02/22 05:48 Vancomycin Trough 31.7 ug/mL (5.0-15.0) H 12/01/22 09:47 Random Vancomycin 22.3 ug/mL (0.0-15.0) H 12/02/22 05:48 Microbiology: Microbiology 11/30/22 00:15 Wound - Right Foot Gram Stain - Final 11/30/22 00:15 Wound - Right Foot Wound Culture - Preliminary No growth-Final to follow Weight used for dosin kg Estimated Creatinine Clearance: 60 ml/min Goal Trough: 15-20 mcg/mL Pharmacy Plan for Drug Dosing: Random level today still high @22.3. Renal CrCl calculated as ~60ml/min using and adjusted body weight of 101.8kg. New random level ordered for tomorrow with goal of <20. Pharmacy Service will continue to monitor and adjust dosing as required. Follow-Up Labs: Trough Vancomycin - random 2.2.23 @0600
--- NOTE | 2022-12-02 09:08 | OP.PCM_ITS ---
Problems Associated Problem List Diagnoses (1) Type 2 diabetes mellitus with foot ulcer: (2) Non-pressure chronic ulcer of other part of right foot with fat layer exposed: (3) Osteomyelitis of foot, right, acute: Report of Operation Date of Procedure: 12/02/22 Pre-Operative Diagnosis: 1. Diabetic infection right foot 2. Osteomyelitis right foot Post-Operative Diagnosis: Same Surgery/Procedure Performed:: Partial first ray resection right foot Description of Surgical Findings:: Intraoperatively there was adequate bleeding to the surgical resection site with no residual devitalized or purulent tissue. No evidence of deep abscess to suggest that there was a chronic osteomyelitic process. Bone culture and pathology were sent for further evaluation. Surgeon: Star Calderón Type of Anesthesia: MAC/Supplemental Special Medications: 20 cc half percent Marcaine plain Specimen's removed: First metatarsal phalangeal joint wound right foot for tissue culture Right hallux sent for bone culture First metatarsal head sent for pathology First metatarsal sent for clearance fragment to pathology The sole of the right foot Estimated Blood Loss (mL): 100 Description of Procedure: Patient had an MRI in October confirming osteomyelitis of first metatarsal phalangeal joint. He delayed presentation to the hospital and came to the emergency room overnight and was admitted for amputation and management of his bone infection. Patient has been stable throughout his course of been receiving IV antibiotics patient was consented for partial first ray resection today. Patient was brought back the operating placed comfortably supine position all osseous prominences were offloaded prevent any compression neuropraxia. Patient was induced under MAC anesthesia. Well-padded right ankle tourniquet applied. Right hip was bumped to remove external rotation. Vargas block performed first MPJ using standard Vargas block technique on the right side using 10 cc half percent Marcaine plain right lower extremity scrubbed prepped and draped using typical aseptic manner. Once cleared by anesthesia right lower extremity was elevated exsanguinated tourniquet was inflated to 250 mmHg. Tourniquet time total was 21 minutes prior to let down prior to incisional closure. Incision was made along the dorsal aspect of the first metatarsal phalangeal joint extending to midshaft of the metatarsal and the plantar medial first MPJ wound was excised as this incision was made after approval with anesthesia using a 15 blade through epidermis dermis into subcutaneous tissue down to level of bone full-thickness any bleede rs were identified cauterized neurovascular structures were bluntly protected using retraction. This was performed atraumatically. First metatarsal phalangeal joint was identified and the proximal and distal phalanx were dissected out maintaining a thick full-thickness flap for incisional closure. This bone including the distal and proximal phalanx was sent to microbiology for further examination. The wound was excised circumferentially to the first metatarsophalangeal joint this was sent for tissue culture to microbiology. First metatarsal head was removed using a sagittal saw using standard atraumatic technique. This was sent to bone pathology for further examination. Next a approximately 2 cm bone segment was sent in 2 separate pieces to bone pathology for clearance fragment to confirm adequate resection of the osteomyelitic process and to allow for adequate soft tissue closure. The skin was then remodeled to allow for adequate soft tissue closure under minimal tension tourn iquet was deflated. Any residual bleeders identified cauterized at this time. Site was flushed with copious amounts normal sterile saline using low-pressure pulse lavage. Incisional closure performed with 3-0 Prolene using simple interrupted technique. Incision was dressed with bacitracin Adaptic 4 x 4's Kerlix ABD pads and additional Kerlix and an Mickey bandage. Patient was transferred to PACU vital signs stable vascular status intact all digits for further monitoring prior to discharge or transfer back to the floor. Patient tolerated anesthesia and procedure well apparent satisfactory condition. Patient will be followed by infectious disease and will consider long-term antibiotic placement at this time I feel that bone resection was substantial and suggestive of infection clearance. We will await intraoperative cultures and bone pathology results.
--- NOTE | 2022-12-02 09:16 | NURSING ---
pt continues to be off unit
--- NOTE | 2022-12-02 09:49 | CASEMGMT ---
Social Work Pt off the floor for surgery at this time. SW unable to inform that [facility] has accepted and started precert. SW will attempt to check in with pt later this day after surgery. ATUL Bedolla
--- NOTE | 2022-12-02 10:05 | RAD_ITS ---
STUDY: X-RAY - RIGHT FOOT CLINICAL: Male, 67 years old. POST OP -- PORTABLE RIGHT FOOT TECHNIQUE: 2 view(s) of the foot. COMPARISON: Comparison is made with prior examination dated 11/29/2022. FINDINGS: Normal talus, calcaneus, and tarsal bones. Normal visualized subtalar, talonavicular, calcaneocuboid, tarsal and tarsometatarsal articulations. The patient is status post amputation of the mid and distal portion of the first metatarsal and the first toe. Normal second through fifth metatarsophalangeal joints. Normal interphalangeal joints and phalanges of the lesser toes. Diffuse soft tissue swelling more prominently overlying the operative site. RAD/Foot 2 Views IMPRESSION: Status post amputation of the mid and distal portion of the first metatarsal and first toe with overlying soft tissue swelling and postoperative soft tissue changes. Electronically Signed: Wally Arevalo MD at 15:27 EST ,
--- NOTE | 2022-12-02 10:26 | NURSING ---
pt remains off unit in surgical area
--- NOTE | 2022-12-02 10:48 | SUR.PHASEI ---
AFTER PORTABLE RIGHT FOOT X-RAY DONE, ACTIVE BLEEDING NOTED FROM OPERATIVE SIDE OF DRESSING. MODERATE PRESSURE APPLIED TO RIGHT FOOT FOR 10 MINUTES. RIGHT FOOT ELEVATED ABOVE THE PATIENT'S HEART. BLEEDING APPEARS TO HAVE STOPPED AFTER [address] DENISE NOTIFIED AND CAME TO THE BEDSIDE IN PACU. DR. DENISE REINFORCED THE RIGHT FOOT DRESSING. I PHONE THE [facility] CHARGE NURSE AND UPDATED HER ON THE PREVIOUS INFORMATION
[2022-12-02] MEDS: busPIRone 5 MG Tablet 10 MG PO ×2 (10:50→22:16)
[2022-12-02] MEDS: Tolterodine Tartrate 2 MG CAP.SA PO (10:51)
[2022-12-02] MEDS: DULoxetine Hcl 60 MG Capsule PO (10:51)
[2022-12-02] MEDS: Potassium Chloride Oral Tablet 20 MEQ PO (10:51)
[2022-12-02] MEDS: Carvedilol 12.5 MG Tablet PO ×2 (10:51→22:09)
[2022-12-02] MEDS: Aspirin 81 MG TAB.CHEW PO (10:52)
[2022-12-02] MEDS: Cyanocobalamin 500 MCG Tablet PO (10:53)
[2022-12-02] MEDS: Clopidogrel Bisulfate 75 MG Tablet PO (10:53)
[2022-12-02] MEDS: Ascorbic Acid 500 MG Tablet PO (10:53)
[2022-12-02] MEDS: Pantoprazole Sodium 40 MG Tablet PO ×2 (10:53→22:09)
[2022-12-02] MEDS: Pramipexole Di-HCl 0.125 MG Tablet PO ×2 (10:53→22:09)
[2022-12-02] MEDS: buPROPion (SR) 150 MG Tablet.SA PO ×2 (10:54→22:09)
[2022-12-02] MEDS: Lisinopril 10 MG Tablet PO (10:54)
[2022-12-02 11:26] LABS: Bedside Glucose 106 mg/dL (74-106)
--- NOTE | 2022-12-02 11:48 | PCM.PN.HOSP ---
Subjective Subjective Doing well, no issues overnight plan for OR today Objective Data Objective Data Vital Signs: Vital Signs Temp Pulse Resp BP Pulse Ox O2 Del Method 97.8 F 83 18 125/85 H 93 Room Air 12/02/22 10:50 12/02/22 10:50 12/02/22 10:50 12/02/22 10:50 12/02/22 10:50 12/02/22 10:50 Oxygen Delivery Method Room Air Weight: 317 lb 14.505 oz Body Mass Index (BMI) 46.1 Intake & Output: Intake and Output for Last 24 Hours 12/01/22 12/02/22 12/03/22 03:59 03:59 03:59 Intake Total 1655 / 1655 255.77 / 255.77 550 / 550 Balance 1655 / 1655 255.77 / 255.77 550 / 550 Medical Nutrition Assessment Dietitian: Malnutrition Criteria Met Start: 11/30/22 11:19 Freq: Status: Active Protocol: Document 11/30/22 11:20 SLA (Rec: 11/30/22 11:20 SLA [id number]) Nutrition Malnutrition Evidence of Malnutrition Exists Yes Malnutrition (moderate): Chronic Evidenced By Suboptimal Energy Intake ( Moderate),Weight Loss (Severe) Clinical Problem Chronic Disease or Condition Related Malnutrition Etiology moderate related to pt has not been hungry d/t crap in my head/sinuses, issues w/ R diabetic ulcer, and 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 Status Active Problem Recommendation Dietitian Recommendations/Changes Will changed diet to 1800 taras Consistent CHO /Cardiac Will order Ralph bid to help w / wound healing. Lab / Micro Data Result Diagrams: 12/02/22 05:48 12/02/22 05:48 Labs: Laboratory Results - last 24 hr 12/01/22 10:32: POC Glucose 134 H 12/01/22 15:51: POC Glucose 133 H 12/01/22 20:46: POC Glucose 154 H 12/02/22 04:57: POC Glucose 118 H 12/02/22 05:48: WBC 10.1, RBC 4.62, Hgb 13.0, Hct 40.9, MCV 88.5, MCH 28.1, MCHC 31.8 L, RDW Std Deviation 50.1 H, RDW Coeff of Jose 15.3 H, Plt Count 284, MPV 10.7, Immature Gran % (Auto) 0.700, Neut % (Auto) 65.5, Lymph % (Auto) 21.4, [place] % (Auto) 8.4, Eos % (Auto) 3.6, Baso % (Auto) 0.4, Absolute Neuts (auto) 6.6, Absolute Lymphs (auto) 2.15, Nucleated RBC % 0 12/02/22 05:48: Sodium 140, Potassium 3.9, Chloride 111 H, Carbon Dioxide 18.0 L, Anion Gap 11, BUN 24 H, Creatinine 1.78 H, Estim Creat Clear Calc 42.72, Est GFR (MDRD) Af Amer 50 L, Est GFR (MDRD) Non-Af 41 L, BUN/Creatinine Ratio 13.5, Glucose 125 H, Calcium 8.7 12/02/22 05:48: Random Vancomycin 22.3 H 12/02/22 11:02: POC Glucose 106 Micro: Microbiology 11/30/22 00:15 Wound - Right Foot Gram Stain - Final 11/30/22 00:15 Wound - Right Foot Wound Culture - Preliminary No growth-Final to follow 11/30/22 00:15 Wound - Right Foot Anaerobic Culture - Preliminary No growth in 48 hours. Physical Exam Narrative General: Alert, Oriented x3, Cooperative, No apparent distress, morbidly obese HEENT: Atraumatic, PERRLA, EOMI, Normocephalic Oral: Moist Mucosa Neck: Supple, No JVD Lungs: Clear to auscultation, Normal air movement, No rhonchi, No wheeze, No rales Cardiovascular: Regular rate, Regular Rhythm, Normal S1, Normal S2, No murmurs Abdomen: Soft, Non Tender, Non-Distended, No Hepato-splenomegaly Extremities: No edema, Capillary Refill Less than 3 Seconds, left BKA Skin: Right lower extremity wound is dressed and wrapped Musculoskeletal: No Tenderness to Palpation of Joints or Extremities Neurological: Cranial nerves II-XII grossly intact, Motor Exam 5/5 strength throughout, Sensory exam intact to light touch and pain Psych/Mental Status: Normal Affect, Appropriate Assessment & Plan Assessment/Plan (1) Non-pressure chronic ulcer of other part of right foot with necrosis of muscle: PLAN: Plan 1. Acute on chronic right first metatarsal diabetic foot ulcer complicated with osteomyelitis, failed recent inpatient and outpatient IV antibiotic treatment: Patient is admitted on [facility] floor. Patient was recently discharged on IV vancomycin and Zosyn on 10/09/2022 to intermediate. At that time he declined surgery and he wanted to salvage the foot. Culture showed multiple organisms Enterococcus corynebacterium and GNR. Validation Scientist Dr. Quiles is consulted. ID consult with wound culture, MRSA. Recent LES 1222 noted no acute ischemia however diminished TBI. Continue IV vancomycin and Zosyn. 12/01/2022: Plan for OR tomorrow 12/02/2022: Operative repair today, appreciate podiatry and an IDs assistance 2. HTN/HLD/history of CVA ? Blood pressures are stable ? Continue with his home blood pressure medication ? Continue with his statin ? He does have carotid stenosis and will need repair as an outpatient 3. 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 We will hold his oral regimen ? Continue with insulin ? Accu-Cheks ACHS ? We will make adjustments as necessary ? Renal functions at baseline ? Discussed lifestyle modification 4. COPD/CECILE ? Not in exacerbation ? Continue with inhalers ? Continue BiPAP at night 5. Hypothyroidism ? Stable ? Continue with Synthroid 6. Anxiety/depression/history of alcohol abuse ? Stable ? Continue with his home medications ?Not in alcohol withdrawal and denies recent use we will monitor 7. GERD ? Stable ? Continue with PPI DVT: Lovenox Charges/Coding Visit Charges Inpatient E&M: 60479 Subs Hosp L2
--- NOTE | 2022-12-02 12:00 | WOUNDNOTE ---
Nursing states that there is a large amount of bleeding noted from the right foot. patient just up from PACU not too long ago. patient had some bleeding in PACU as well. Dr Calderón had reinforced the dressing. bleeding noted soaked through numerous layers of dressing and MAURILIO wraps. left the immediate kerlix in place, but removed the remaining dressings. applied more ABD pads and kerlix. applied an MAURILIO wrap for pressure to control the bleeding as well. pt tolerated well. leg elevated above the heart level on pillows and blankets. Dr Calderón aware. will monitor and notify Dr Calderón if bleeding continues.
--- NOTE | 2022-12-02 12:48 | NURSING ---
foot remains up on pillows and no new drainage noted on right foot
--- NOTE | 2022-12-02 13:25 | PCM.PN.ID ---
Physical Exam Narrative Feeling ok s/p OR, no pain in foot, no fever Const alert and no apparent distress Resp normal air movement and clear to auscultation bilaterally Cardio regular rate and regular rhythm GI soft to palpation, non-tender and non-distended Skin Skin Narrative: R foot wrapped ID ID: Route of nutrition/ use of supplements: [] Nutritional Intake: [] IV Site: [] Abreu Catheter: [] Assessment & Plan Assessment/Plan (1) Osteomyelitis of ankle or foot, right, acute: PLAN: Wound cx neg so far. Previous wound cx with enterococcus, acinetobacter, coryne, and anaerobes. On vanc/zosyn, OR today, clearance cx sent. will follow
--- NOTE | 2022-12-02 14:30 | NURSING ---
R foot remains up on pillows and reinforced drsg is D&I
[2022-12-02] MEDS: oxyCODONE 5 MG Tablet PO (20:04)
[2022-12-02] MEDS: Atorvastatin Calcium 80 MG Tablet PO (22:12)
[2022-12-02 22:45] LABS: Bedside Glucose 122 mg/dL (74-106)
[2022-12-03 04:00] VITALS: BP 118/63; PULSE 76; RESP 18; TEMP 36.2; O2SAT 96
[2022-12-03] MEDS: Levothyroxine 75 MCG Tablet 225 MCG PO (06:28)
[2022-12-03 06:55] LABS: Bedside Glucose 110 mg/dL (74-106)
[2022-12-03 07:23] LABS: Vancomycin, Random Level 16.6 ug/mL (0.0-15.0)
[2022-12-03 07:24] LABS: Anion Gap 9 (5-15); BUN 23 mg/dL (7-18); BUN/Creat Ratio 12.6 RATIO (10-20); Calcium,Total 8.5 mg/dL (8.5-10.1); Chloride 111 mmol/L (98-107); Creatinine, Serum 1.82 mg/dL (0.70-1.30); EST Glomerular Filtration Rate 40 mL/min (>60); Est Glom Filt Rate - Afr Amer 48 mL/min (>60); Estimated Creatinine Clearance 41.78 ml/min; Glucose 120 mg/dL (74-106); Potassium 4.3 mmol/L (3.5-5.1); Sodium Level 138 mmol/L (136-145)
[2022-12-03 08:00] VITALS: BP 117/63; PULSE 74; RESP 18; TEMP 36.6; O2SAT 99
--- NOTE | 2022-12-03 08:04 | PCM.RX.CS ---
Consult Pharmacy has been consulted to manage selected antiobiotic: Vancomycin Type of Consult: Follow-up Suspected Infection: Osteomyelitis Prior Doses of Antibiotics Received/Current Regimen: Last dose was 1250mg iv on 12.01.22. Labs: Sodium 138 mmol/L (136-145) 12/03/22 05:54 Potassium 4.3 mmol/L (3.5-5.1) 12/03/22 05:54 Chloride 111 mmol/L (98-107) H 12/03/22 05:54 Carbon Dioxide 18.0 mmol/L (21.0-32.0) L 12/03/22 05:54 Anion Gap 9 (5-15) 12/03/22 05:54 BUN 23 mg/dL (7-18) H 12/03/22 05:54 Creatinine 1.82 mg/dL (0.70-1.30) H 12/03/22 05:54 Est GFR (MDRD) Af Amer 48 mL/min (>60) L 12/03/22 05:54 Est GFR (MDRD) Non-Af 40 mL/min (>60) L 12/03/22 05:54 BUN/Creatinine Ratio 12.6 RATIO (10-20) 12/03/22 05:54 Glucose 120 mg/dL (74-106) H 12/03/22 05:54 Vancomycin Trough 31.7 ug/mL (5.0-15.0) H 12/01/22 09:47 Random Vancomycin 16.6 ug/mL (0.0-15.0) H 12/03/22 05:54 Microbiology: Microbiology 11/30/22 00:15 Wound - Right Foot Gram Stain - Final 11/30/22 00:15 Wound - Right Foot Wound Culture - Final No growth aerobically. 11/30/22 00:15 Wound - Right Foot Anaerobic Culture - Preliminary No growth in 48 hours. Weight used for dosin kg Estimated Creatinine Clearance: 60ml/min Goal Trough: 15-20 mcg/mL Pharmacy Plan for Drug Dosing: Random level today 16.6 and in therapeutic range. Last dose was ~43 hrs pre level. Will resume new dosing at a reduced frequency of 1250mg iv q24h. New trough level ordered for 2..23 before third dose. Pharmacy Service will continue to monitor and adjust dosing as required. Follow-Up Labs: Trough Vancomycin - 2.4.23 @0830 before 0900 dose
[2022-12-03] MEDS: Clopidogrel Bisulfate 75 MG Tablet PO (09:09)
[2022-12-03] MEDS: Ascorbic Acid 500 MG Tablet PO (09:09)
[2022-12-03] MEDS: Cyanocobalamin 500 MCG Tablet PO (09:09)
[2022-12-03] MEDS: Tolterodine Tartrate 2 MG CAP.SA PO (09:09)
[2022-12-03] MEDS: DULoxetine Hcl 60 MG Capsule PO (09:09)
[2022-12-03] MEDS: Folic Acid 1 MG Tablet PO (09:09)
[2022-12-03] MEDS: Carvedilol 12.5 MG Tablet PO ×2 (09:10→20:49)
[2022-12-03] MEDS: busPIRone 5 MG Tablet 10 MG PO ×2 (09:10→20:49)
[2022-12-03] MEDS: Potassium Chloride Oral Tablet 20 MEQ PO (09:10)
[2022-12-03] MEDS: Pantoprazole Sodium 40 MG Tablet PO ×2 (09:10→20:49)
[2022-12-03] MEDS: Pramipexole Di-HCl 0.125 MG Tablet PO ×2 (09:11→20:49)
[2022-12-03] MEDS: Lisinopril 10 MG Tablet PO (09:11)
[2022-12-03] MEDS: buPROPion (SR) 150 MG Tablet.SA PO ×2 (09:11→20:50)
--- NOTE | 2022-12-03 09:21 | NURSING ---
Dr Calderón at bedside w/ wound nurse, changing original post op dressing-pt tolerated well
--- NOTE | 2022-12-03 09:26 | PN.HOSP_ITS ---
Subjective Subjective Doing well, no issues overnight. Pain is controlled Objective Data Objective Data Vital Signs: Vital Signs Temp Pulse Resp BP Pulse Ox O2 Del Method 97.8 F 74 18 117/63 99 CPAP 12/03/22 08:00 12/03/22 08:00 12/03/22 08:00 12/03/22 08:00 12/03/22 08:00 12/03/22 08:00 Oxygen Delivery Method CPAP Weight: 334 lb 0.4 oz Body Mass Index (BMI) 46.1 Intake & Output: Intake and Output for Last 24 Hours 12/02/22 12/03/22 12/04/22 03:59 03:59 03:59 Intake Total 255.77 / 255.77 2500 / 2500 Output Total 600 / 600 Balance 255.77 / 255.77 2500 / 2500 -600 / -600 Medical Nutrition Assessment Dietitian: Malnutrition Criteria Met Start: 11/30/22 11:19 Freq: Status: Active Protocol: Document 12/03/22 08:41 AG (Rec: 12/03/22 08:42 AG [id number]) Nutrition Malnutrition Evidence of Malnutrition Exists No Clinical Problem Chronic Disease or Condition Related Malnutrition Etiology - Signs/Symptoms - Status Inactive Problem Recommendation Dietitian Recommendations/Changes Continue carbohydrate controlled, cardiac diet Lab / Micro Data Result Diagrams: 12/02/22 05:48 12/03/22 05:54 Labs: Laboratory Results - last 24 hr 12/02/22 11:02: POC Glucose 106 12/02/22 22:06: POC Glucose 122 H 12/03/22 05:54: Random Vancomycin 16.6 H 12/03/22 05:54: Sodium 138, Potassium 4.3, Chloride 111 H, Carbon Dioxide 18.0 L , Anion Gap 9, BUN 23 H, Creatinine 1.82 H, Estim Creat Clear Calc 41.78, Est GFR (MDRD) Af Amer 48 L, Est GFR (MDRD) Non-Af 40 L, BUN/Creatinine Ratio 12.6, Glucose 120 H, Calcium 8.5 12/03/22 06:31: POC Glucose 110 H Micro: Microbiology 11/30/22 00:15 Wound - Right Foot Gram Stain - Final 11/30/22 00:15 Wound - Right Foot Wound Culture - Final No growth aerobically. 11/30/22 00:15 Wound - Right Foot Anaerobic Culture - Preliminary No growth in 48 hours. Radiography Diagnostic Testing: Radiology Impression Foot X-Ray 12/02/22 10:05 IMPRESSION: Status post amputation of the mid and distal portion of the first metatarsal and first toe with overlying soft tissue swelling and postoperative soft tissue changes. Electronically Signed: Wally Arevalo MD at 15:27 EST , Physical Exam Narrative General: Alert, Oriented x3, Cooperative, No apparent distress, morbidly obese HEENT: Atraumatic, PERRLA, EOMI, Normocephalic Oral: Moist Mucosa Neck: Supple, No JVD Lungs: Clear to auscultation, Normal air movement, No rhonchi, No wheeze, No rales Cardiovascular: Regular rate, Regular Rhythm, Normal S1, Normal S2, No murmurs Abdomen: Soft, Non Tender, Non-Distended, No Hepato-splenomegaly Extremities: No edema, Capillary Refill Less than 3 Seconds, left BKA Skin: Right lower extremity wound is dressed and wrapped Musculoskeletal: No Tenderness to Palpation of Joints or Extremities Neurological: Cranial nerves II-XII grossly intact, Motor Exam 5/5 strength throughout, Sensory exam intact to light touch and pain Psych/Mental Status: Normal Affect, Appropriate Assessment & Plan Assessment/Plan (1) Non-pressure chronic ulcer of other part of right foot with necrosis of muscle: PLAN: Plan 1. Acute on chronic right first metatarsal diabetic foot ulcer complicated with osteomyelitis, failed recent inpatient and outpatient IV antibiotic treatment: Patient is admitted [facility] floor. Patient was recently discharged on IV vancomycin and Zosyn on 10/09/2022 to half-way. At that time he declined surgery and he wanted to salvage the foot. Culture showed multiple organisms Enterococcus corynebacterium and GNR. Bracelet Form Coverer Dr. Quiles is consulted. ID consult with wound culture, MRSA. Recent LES 1222 noted no acute ischemia however diminished TBI. Continue IV vancomycin and Zosyn. 12/01/2022: Plan for OR tomorrow 12/02/2022: Operative repair today, appreciate podiatry and an IDs assistance 12/03/2022: Infectious data still pending, will continue with broad-spectrum antibiotics pending IDs evaluation and adjustment 2. HTN/HLD/history of CVA ? Blood pressures are stable ? Continue with his home blood pressure medication ? Continue with his statin ? He does have carotid stenosis and will need repair as an outpatient 3. 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 We will hold his oral regimen ? Continue with insulin ? Accu-Cheks ACHS ? We will make adjustments as necessary ? Renal functions at baseline ? Discussed lifestyle modification 4. COPD/CECILE ? Not in exacerbation ? Continue with inhalers ? Continue BiPAP at night 5. Hypothyroidism ? Stable ? Continue with Synthroid 6. Anxiety/depression/history of alcohol abuse ? Stable ? Continue with his home medications ?Not in alcohol withdrawal and denies recent use we will monitor 7. GERD ? Stable ? Continue with PPI DVT: Lovenox Charges/Coding Visit Charges Inpatient E&M: 20447 Subs Hosp L2
[2022-12-03 09:43] LABS: Hematocrit 36.3 % (40-54); Hemoglobin 11.1 g/dL (13.0-16.5)
--- NOTE | 2022-12-03 10:00 | PCM.PROGNOTE ---
Subjective Subjective Patient seen 1 day postop from right foot partial first ray resection. Patient had bleeding overnight this was reinforced multiple times by wound care nurse. Patient denies any constitutional symptoms this morning. Patient denies chest pain And shortness of breath. Patient voiding urine and passing gas. No other complaints. Objective Data Objective Data Vital Signs: Vital Signs Temp Pulse Resp BP Pulse Ox O2 Del Method 97.8 F 74 18 117/63 99 CPAP 12/03/22 08:00 12/03/22 08:00 12/03/22 08:00 12/03/22 08:00 12/03/22 08:00 12/03/22 08:00 Oxygen Delivery Method CPAP Weight: 151.511 kg Body Mass Index (BMI) 46.1 Intake & Output: Intake and Output for Last 24 Hours 12/01/22 12/02/22 12/03/22 23:59 23:59 23:59 Intake Total 255.77 / 255.77 2500 / 2500 50 / 50 Output Total 600 / 600 Balance 255.77 / 255.77 2500 / 2500 -550 / -550 Medical Nutrition Assessment Dietitian: Malnutrition Criteria Met Start: 11/30/22 11:19 Freq: Status: Active Protocol: Document 12/03/22 08:41 AG (Rec: 12/03/22 08:42 AG [id number]) Nutrition Malnutrition Evidence of Malnutrition Exists No Clinical Problem Chronic Disease or Condition Related Malnutrition Etiology - Signs/Symptoms - Status Inactive Problem Recommendation Dietitian Recommendations/Changes Continue carbohydrate controlled, cardiac diet Lab / Micro Data Result Diagrams: 12/03/22 05:54 12/03/22 05:54 Labs: Laboratory Results - last 24 hr 12/02/22 11:02: POC Glucose 106 12/02/22 22:06: POC Glucose 122 H 12/03/22 05:54: Random Vancomycin 16.6 H 12/03/22 05:54: Sodium 138, Potassium 4.3, Chloride 111 H, Carbon Dioxide 18.0 L, Anion Gap 9, BUN 23 H, Creatinine 1.82 H, Estim Creat Clear Calc 41.78, Est GFR (MDRD) Af Amer 48 L, Est GFR (MDRD) Non-Af 40 L, BUN/Creatinine Ratio 12.6, Glucose 120 H, Calcium 8.5 12/03/22 05:54: Hgb 11.1 L, Hct 36.3 L 12/03/22 06:31: POC Glucose 110 H Micro: Microbiology 12/02/22 08:54 Tissue - Right Foot Wound Culture - Preliminary Mixed Gram Pos & Gram Neg Org 12/02/22 08:54 Bone - Toe Wound Culture - Preliminary No growth-Final to follow 11/30/22 00:15 Wound - Right Foot Gram Stain - Final 11/30/22 00:15 Wound - Right Foot Wound Culture - Final No growth aerobically. 11/30/22 00:15 Wound - Right Foot Anaerobic Culture - Preliminary No growth in 48 hours. Radiography Diagnostic Testing: Radiology Impression Foot X-Ray 12/02/22 10:05 IMPRESSION: Status post amputation of the mid and distal portion of the first metatarsal and first toe with overlying soft tissue swelling and postoperative soft tissue changes. Electronically Signed: Wally Arevalo MD at 15:27 EST Reading Location ID and State: [facility] / [place] , Service support , Physical Exam Narrative BKA noted on left side Diminished pulses RLE w/ delayed capillary fill time and atrophic skin changes absent protective and light touch sensations Partial first ray resection to right foot notes and well approximated incisional site with intact sutures. Skin flaps appear healthy with blanching. No residual signs of infection. Const alert Assessment & Plan Assessment/Plan (1) Type 2 diabetes mellitus with foot ulcer: PLAN: Patient examined evaluated. Bleeding overnight, no residual bleeding upon dressing change today. Appears to have resolved. Recommend holding Lovenox for additional day and then restarting tomorrow. This time I recommend strict nonweightbearing to right foot. Patient awaiting discharge to custodial facility. Infectious disease on board managing antibiotics, intraoperative cultures pending. Dressing was changed today reapplied Betadine Adaptic 4 x 4's Kerlix and Mickey bandage. Due to strict nonweightbearing status to right foot patient will likely need DVT prophylaxis on discharge likely 40 mg Lovenox subcu daily to be adequate. (2) Non-pressure chronic ulcer of other part of right foot with fat layer exposed: (3) Osteomyelitis of foot, right, acute:
[2022-12-03] MEDS: Aspirin 81 MG TAB.CHEW PO (10:27)
--- NOTE | 2022-12-03 10:35 | WOUNDNOTE ---
wound photo: right foot
--- NOTE | 2022-12-03 10:36 | WOUNDNOTE ---
wound photo: right foot
[2022-12-03 10:44] VITALS: PULSE 80
--- NOTE | 2022-12-03 12:55 | CASEMGMT ---
Social Work SW notified by [facility] that precert has been obtained. Physician updated and pt is not ready for discharge today. Freida at the [facility] updated and precert is good for 3 days. SW met with pt and updated. Pt is understanding. Plan: [facility], when medically ready. ATUL Krause
[2022-12-03] MEDS: Acetaminophen 325 MG Tablet 650 MG PO ×2 (13:58→22:44)
[2022-12-03] MEDS: oxyCODONE 5 MG Tablet PO ×2 (13:58→22:45)
[2022-12-03 14:02] LABS: Free T3 1.7 pg/mL (2.18-3.98); T4 Free Direct 1.63 ng/dL (0.76-1.46)
[2022-12-03 15:00] VITALS: BP 115/61; PULSE 73; RESP 18; TEMP 37; O2SAT 100
[2022-12-03 20:03] VITALS: O2SAT 96
[2022-12-03 20:47] VITALS: BP 102/62; PULSE 75; RESP 19; TEMP 36.7; O2SAT 97
[2022-12-03] MEDS: Atorvastatin Calcium 80 MG Tablet PO (20:49)
[2022-12-04 05:12] VITALS: BP 121/59; PULSE 68; RESP 17; TEMP 36.9; O2SAT 97
[2022-12-04] MEDS: Levothyroxine 75 MCG Tablet 225 MCG PO (06:14)
[2022-12-04 07:14] LABS: Anion Gap 9 (5-15); BUN 30 mg/dL (7-18); BUN/Creat Ratio 14.4 RATIO (10-20); Calcium,Total 8.4 mg/dL (8.5-10.1); Chloride 109 mmol/L (98-107); Creatinine, Serum 2.08 mg/dL (0.70-1.30); EST Glomerular Filtration Rate 34 mL/min (>60); Est Glom Filt Rate - Afr Amer 41 mL/min (>60); Estimated Creatinine Clearance 36.56 ml/min; Glucose 163 mg/dL (74-106); Potassium 3.6 mmol/L (3.5-5.1); Sodium Level 137 mmol/L (136-145)
[2022-12-04 08:32] VITALS: O2SAT 97
[2022-12-04] MEDS: Ascorbic Acid 500 MG Tablet PO (09:23)
[2022-12-04] MEDS: Potassium Chloride Oral Tablet 20 MEQ PO (09:24)
[2022-12-04] MEDS: Cyanocobalamin 500 MCG Tablet PO (09:24)
[2022-12-04] MEDS: DULoxetine Hcl 60 MG Capsule PO (09:24)
[2022-12-04] MEDS: Pramipexole Di-HCl 0.125 MG Tablet PO (09:24)
[2022-12-04] MEDS: Carvedilol 12.5 MG Tablet PO (09:24)
[2022-12-04] MEDS: Aspirin 81 MG TAB.CHEW PO (09:24)
[2022-12-04] MEDS: busPIRone 5 MG Tablet 10 MG PO (09:24)
[2022-12-04] MEDS: Tolterodine Tartrate 2 MG CAP.SA PO (09:24)
[2022-12-04] MEDS: Lisinopril 10 MG Tablet PO (09:24)
[2022-12-04] MEDS: buPROPion (SR) 150 MG Tablet.SA PO (09:24)
[2022-12-04] MEDS: Clopidogrel Bisulfate 75 MG Tablet PO (09:24)
[2022-12-04] MEDS: Pantoprazole Sodium 40 MG Tablet PO (09:24)
[2022-12-04] MEDS: Folic Acid 1 MG Tablet PO (09:25)
--- NOTE | 2022-12-04 09:31 | PCM.PN.HOSP ---
Subjective Subjective No issues overnight, awaiting final antibiotic recommendations for discharge planning Objective Data Objective Data Vital Signs: Vital Signs Temp Pulse Resp BP Pulse Ox O2 Del Method 98.5 F 68 17 121/59 H 97 Room Air 12/04/22 05:12 12/04/22 05:12 12/04/22 05:12 12/04/22 05:12 12/04/22 08:32 12/04/22 08:32 Oxygen Delivery Method Room Air Weight: 337 lb 4.916 oz Body Mass Index (BMI) 46.1 Intake & Output: Intake and Output for Last 24 Hours 12/03/22 12/04/22 12/05/22 03:59 03:59 03:59 Intake Total 2500 / 2500 1175 / 1175 410 / 410 Output Total 1150 / 1150 200 / 200 Balance 2500 / 2500 25 210 / 210 Medical Nutrition Assessment Dietitian: Malnutrition Criteria Met Start: 11/30/22 11:19 Freq: Status: Active Protocol: Document 12/03/22 08:41 AG (Rec: 12/03/22 08:42 AG [id number]) Nutrition Malnutrition Evidence of Malnutrition Exists No Clinical Problem Chronic Disease or Condition Related Malnutrition Etiology - Signs/Symptoms - Status Inactive Problem Recommendation Dietitian Recommendations/Changes Continue carbohydrate controlled, cardiac diet Lab / Micro Data Result Diagrams: 12/03/22 05:54 12/04/22 05:48 Labs: Laboratory Results - last 24 hr 12/03/22 05:54: Hgb 11.1 L, Hct 36.3 L 12/03/22 05:54: Free T4 1.63 H, Free T3 pg/dL 1.7 L 12/04/22 05:48: Sodium 137, Potassium 3.6, Chloride 109 H, Carbon Dioxide 19.0 L, Anion Gap 9, BUN 30 H, Creatinine 2.08 H, Estim Creat Clear Calc 36.56, Est GFR (MDRD) Af Amer 41 L, Est GFR (MDRD) Non-Af 34 L, BUN/Creatinine Ratio 14.4, Glucose 163 H, Calcium 8.4 L Micro: Microbiology 12/02/22 08:54 Tissue - Right Foot Gram Stain - Final 12/02/22 08:54 Tissue - Right Foot Wound Culture - Preliminary Staphylococcus species Gram negative steph 12/02/22 08:54 Tissue - Right Foot Anaerobic Culture - Preliminary No growth in 48 hours. 12/02/22 08:54 Bone - Toe Gram Stain - Final 12/02/22 08:54 Bone - Toe Wound Culture - Preliminary Gram negative steph Staphylococcus species 12/02/22 08:54 Bone - Toe Anaerobic Culture - Preliminary No growth in 48 hours. 11/30/22 00:15 Wound - Right Foot Gram Stain - Final 11/30/22 00:15 Wound - Right Foot Wound Culture - Final No growth aerobically. 11/30/22 00:15 Wound - Right Foot Anaerobic Culture - Preliminary No growth in 48 hours. Physical Exam Narrative General: Alert, Oriented x3, Cooperative, No apparent distress, morbidly obese HEENT: Atraumatic, PERRLA, EOMI, Normocephalic Oral: Moist Mucosa Neck: Supple, No JVD Lungs: Clear to auscultation, Normal air movement, No rhonchi, No wheeze, No rales Cardiovascular: Regular rate, Regular Rhythm, Normal S1, Normal S2, No murmurs Abdomen: Soft, Non Tender, Non-Distended, No Hepato-splenomegaly Extremities: No edema, Capillary Refill Less than 3 Seconds, left BKA Skin: Right lower extremity wound is dressed and wrapped Musculoskeletal: No Tenderness to Palpation of Joints or Extremities Neurological: Cranial nerves II-XII grossly intact, Motor Exam 5/5 strength throughout, Sensory exam intact to light touch and pain Psych/Mental Status: Normal Affect, Appropriate Assessment & Plan Assessment/Plan (1) Non-pressure chronic ulcer of other part of right foot with necrosis of muscle: PLAN: Plan 1. Acute on chronic right first metatarsal diabetic foot ulcer complicated with osteomyelitis, failed recent inpatient and outpatient IV antibiotic treatment: Patient is admitted on [facility] floor. Patient was recently discharged on IV vancomycin and Zosyn on 10/09/2022 to [facility]. At that time he declined surgery and he wanted to salvage the foot. Culture showed multiple organisms Enterococcus corynebacterium and GNR. Bioprocessing Manufacturing Technician Dr. Quiles is consulted. ID consult with wound culture, MRSA. Recent LES 1222 noted no acute ischemia however diminished TBI. Continue IV vancomycin and Zosyn. 12/01/2022: Plan for OR tomorrow 12/02/2022: Operative repair today, appreciate podiatry and an IDs assistance 12/03/2022: Infectious data still pending, will continue with broad-spectrum antibiotics pending IDs evaluation and adjustment 12/04/2022: Clear for discharge to SNF pending final antibiotic decision 2. HTN/HLD/history of CVA ? Blood pressures are stable ? Continue with his home blood pressure medication ? Continue with his statin ? He does have carotid stenosis and will need repair as an outpatient 3. 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 We will hold his oral regimen ? Continue with insulin ? Accu-Cheks ACHS ? We will make adjustments as necessary ? Creatinine increased 2.08, will hold his lisinopril this morning ? Discussed lifestyle modification 4. COPD/CECILE ? Not in exacerbation ? Continue with inhalers ? Continue BiPAP at night 5. Hypothyroidism ? Stable ? Continue with Synthroid 6. Anxiety/depression/history of alcohol abuse ? Stable ? Continue with his home medications ?Not in alcohol withdrawal and denies recent use we will monitor 7. GERD ? Stable ? Continue with PPI DVT: Lovenox Charges/Coding Visit Charges Inpatient E&M: 33572 Subs Hosp L2
--- NOTE | 2022-12-04 10:52 | PCM.PROGNOTE ---
Subjective Subjective Patient denies any changes over night. No constitutionals. Denies pain. Bleeding resolved at this time. Objective Data Objective Data Vital Signs: Vital Signs Temp Pulse Resp BP Pulse Ox O2 Del Method 98.5 F 68 17 121/59 H 97 CPAP 12/04/22 05:12 12/04/22 05:12 12/04/22 05:12 12/04/22 05:12 12/04/22 08:32 12/04/22 09:32 Oxygen Delivery Method CPAP Weight: 153 kg Body Mass Index (BMI) 46.1 Intake & Output: Intake and Output for Last 24 Hours 12/02/22 12/03/22 12/04/22 23:59 23:59 23:59 Intake Total 2500 / 2500 925 / 1225 710 / 710 Output Total 950 / 1150 400 / 400 Balance 2500 / 2500 -25 / 75 310 / 310 Medical Nutrition Assessment Dietitian: Malnutrition Criteria Met Start: 11/30/22 11:19 Freq: Status: Active Protocol: Document 12/03/22 08:41 AG (Rec: 12/03/22 08:42 AG [id number]) Nutrition Malnutrition Evidence of Malnutrition Exists No Clinical Problem Chronic Disease or Condition Related Malnutrition Etiology - Signs/Symptoms - Status Inactive Problem Recommendation Dietitian Recommendations/Changes Continue carbohydrate controlled, cardiac diet Lab / Micro Data Result Diagrams: 12/03/22 05:54 12/04/22 05:48 Labs: Laboratory Results - last 24 hr 12/03/22 05:54: Free T4 1.63 H, Free T3 pg/dL 1.7 L 12/04/22 05:48: Sodium 137, Potassium 3.6, Chloride 109 H, Carbon Dioxide 19.0 L, Anion Gap 9, BUN 30 H, Creatinine 2.08 H, Estim Creat Clear Calc 36.56, Est GFR (MDRD) Af Amer 41 L, Est GFR (MDRD) Non-Af 34 L, BUN/Creatinine Ratio 14.4, Glucose 163 H, Calcium 8.4 L Micro: Microbiology 12/02/22 08:54 Tissue - Right Foot Gram Stain - Final 12/02/22 08:54 Tissue - Right Foot Wound Culture - Preliminary Staphylococcus species Gram negative steph 12/02/22 08:54 Tissue - Right Foot Anaerobic Culture - Preliminary No growth in 48 hours. 12/02/22 08:54 Bone - Toe Gram Stain - Final 12/02/22 08:54 Bone - Toe Wound Culture - Preliminary Gram negative steph Staphylococcus species 12/02/22 08:54 Bone - Toe Anaerobic Culture - Preliminary No growth in 48 hours. 11/30/22 00:15 Wound - Right Foot Gram Stain - Final 11/30/22 00:15 Wound - Right Foot Wound Culture - Final No growth aerobically. 11/30/22 00:15 Wound - Right Foot Anaerobic Culture - Preliminary No growth in 48 hours. Physical Exam Narrative BKA noted on left side Diminished pulses RLE w/ delayed capillary fill time and atrophic skin changes absent protective and light touch sensations Partial first ray resection to right foot notes and well approximated incisional site with intact sutures. Skin flaps appear healthy with blanching. No residual signs of infection. resolved bleeding. Const alert Assessment & Plan Assessment/Plan (1) Type 2 diabetes mellitus with foot ulcer: PLAN: Patient examined evaluated. Restart lovenox, patient should d/c with lovenox for DVT prophylaxis. After discussion with patient, he can pivot to bedside commode using left prosthetic and heel touch weightbearing on right in surgical shoe. Upon d/c patient's dressing should be changed three times a week at facility and consist of betadine, adaptic, DSD, mickey bandage. [facility] Bone/tissue cultures growing gram - steph/staphylococcus species, awaiting ID recommendation upon final c+s Dressing was changed today reapplied Betadine Adaptic 4 x 4's Kerlix and Mickey bandage. (2) Non-pressure chronic ulcer of other part of right foot with fat layer exposed: (3) Osteomyelitis of foot, right, acute:
[2022-12-04 11:00] VITALS: BP 90/48; PULSE 60; RESP 18; TEMP 36.6; O2SAT 100
--- NOTE | 2022-12-04 14:17 | PCM.PN.ID ---
Physical Exam Narrative Feeling ok, minimal diarrhea, no fever Const alert and no apparent distress Resp normal air movement and clear to auscultation bilaterally Cardio regular rate and regular rhythm GI soft to palpation, non-tender and non-distended Skin Skin Narrative: reviewed photos ID ID: Route of nutrition/ use of supplements: [] Nutritional Intake: [] IV Site: [] Abreu Catheter: [] Assessment & Plan Assessment/Plan (1) Osteomyelitis of ankle or foot, right, acute: PLAN: Wound cx neg so far. Previous wound cx with enterococcus, acinetobacter, coryne, and anaerobes. On vanc/zosyn, OR 12/02/22, clearance path pending. Surg cx with GPC and GNR x2. Will write for one more week vanc/zosyn while final results are pending. will follow, d/w Dr. Flanagan
[2022-12-04 14:25] VITALS: BP 126/76; PULSE 60; RESP 18; TEMP 36.7; O2SAT 96
[2022-12-04] MEDS: oxyCODONE 5 MG Tablet PO (14:28)
--- NOTE | 2022-12-04 15:10 | TREXTCAR_ITS ---
Diet Diet Order/Speech Therapy: 12/02/22 09:35 Diet: Carbohydrate Controlled Type of Dietary Supplement:: Ralph Is pt able to select menu?: Yes Diet Comments: orange ralph w/ breakfast and dinner Routine Orders/Code Status Routine Lab Work: CBC and BMP Code Status: Full Code Wound(s) RIGHT FOOT: Wound Type: surgical incision s/p right 1st ray amputation Dressing Change: betadine/Adaptic Left Foot: Wound Type: Surgical Incision Therapies Weight Bearing: Non weight bearing Problem/Diagnosis (1) Osteomyelitis of ankle or foot, right, acute: Status: Acute Code(s): M86.171 - Other acute osteomyelitis, right ankle and foot Plan 1. Acute on chronic right first metatarsal diabetic foot ulcer complicated with osteomyelitis, failed recent inpatient and outpatient IV antibiotic treatment: Patient is admitted on [facility] floor. Patient was recently discharged on IV vancomycin and Zosyn on 10/09/2022 to [facility]. At that time he declined surgery and he wanted to salvage the foot. Culture showed multiple organisms Enterococcus corynebacterium and GNR. Fractionation Supervisor Dr. Quiles is consulted. ID consult with wound culture, MRSA. Recent LES 1222 noted no acute ischemia however diminished TBI. Continue IV vancomycin and Zosyn. 12/01/2022: Plan for OR tomorrow 12/02/2022: Operative repair today, appreciate podiatry and an IDs assistance 12/03/2022: Infectious data still pending, will continue with broad-spectrum antibiotics pending IDs evaluation and adjustment 12/04/2022: Clear for discharge to SNF pending final antibiotic decision 2. HTN/HLD/history of CVA ? Blood pressures are stable ? Continue with his home blood pressure medication ? Continue with his statin ? He does have carotid stenosis and will need repair as an outpatient 3. 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 We will hold his oral regimen ? Continue with insulin ? Accu-Cheks ACHS ? We will make adjustments as necessary ? Creatinine increased 2.08, will hold his lisinopril this morning ? Discussed lifestyle modification 4. COPD/CECILE ? Not in exacerbation ? Continue with inhalers ? Continue BiPAP at night 5. Hypothyroidism ? Stable ? Continue with Synthroid 6. Anxiety/depression/history of alcohol abuse ? Stable ? Continue with his home medications ?Not in alcohol withdrawal and denies recent use we will monitor 7. GERD ? Stable ? Continue with PPI DVT: Lovenox Allergies/Procedures Done in Hospital Allergies No Known Allergies Allergy (Verified 11/19/22 12:57) Procedures: - (Partial first ray resection right foot) Type of Care/Length of Stay Estimated LOS: Convalescent Care Less Than 30 days Type of Care Needed: Skilled Rehab Potential: Good Prognosis: Good Additional Orders/Day of Discharge Day of Discharge: 12/04/22 Dietary and Speech Recommendations Dietitian Recommendations/Changes: will adjust diet to carbohydrate controlled, orange Ralph BID w/ breakfast and dinner for wound healing Discharge Plan Admission Admit Date/Time: 11/29/22 21:46 Attending Provider: Dimitri Flanagan Primary Care Provider: SARAH SCHAEFER Consulting Providers: Anne Castaneda ; Kory Kessler ; Brad Castillo ; Jimi Quiles ; Mehdi Shukla Discharge Orders/Prescriptions Prescriptions: New piperacillin-tazobactam 3.375 gram recon soln 3.375 g IV Q8H 7 Days Qty: 21 0RF Rx Instructions: weekly bmp, cbc, esr, and vanc trough. Fax to [phone] dx: foot osteo vancomycin 1.25 gram recon soln 1.25 g IV Q24H Qty: 7 0RF Rx Instructions: weekly bmp, cbc, esr, and vanc trough. Fax to [phone] dx: foot osteo oxycodone 5 mg Tablet 5 mg PO Q4H PRN PRN (Reason: Pain Score 4-10) 3 Days Qty: 10 0RF enoxaparin 40 mg/0.4 mL Syringe 40 mg subcut BID Qty: 0 0RF Continued fluticasone propionate [Flonase Allergy Relief] 50 mcg/actuation spray,suspension 2 spray INTRANASAL DAILY PRN PRN (Reason: Sinus Congestion) duloxetine 60 MG capsule,delayed release(DR/EC) 60 mg PO DAILY bupropion HCl 150 MG tablet sustained-release 12 hr 150 mg PO BID Label Comments: depression levothyroxine 75 MCG tablet 225 mcg PO DAILY@0600 Label Comments: thyroid ergocalciferol (vitamin D2) [Vitamin D2] 1,250 mcg (50,000 unit) capsule 50,000 unit PO Rx Instructions: carvedilol 12.5 mg Tablet 12.5 mg PO BID 30 Days Qty: 60 0RF albuterol sulfate [ProAir HFA] 90 mcg/actuation HFA aerosol inhaler 2 inh inhalation Q4H PRN (Reason: shortness of breath or wheezing) Qty: 6.7 0RF atorvastatin 80 mg tablet 80 mg PO QHS clopidogrel 75 mg tablet 75 mg PO DAILY aspirin 81 mg tablet,chewable 81 mg PO BREAKFAST Mucus Relief ER 1,200 mg tablet extended release 12hr 600 mg PO BID multivitamin with folic acid 1 TABLET tablet 1 tab PO DAILYCM acetaminophen [Tylenol] 325 mg Tablet 650 mg PO Q6H PRN PRN (Reason: Pain 1-10 Or Fever>100.7) Qty: 30 0RF bisacodyl 10 mg Suppository 10 mg TX DAILY PRN (Reason: Constipation) buspirone 10 mg Tablet 10 mg PO BID Rx Instructions: for 2 weeks, end date 12/05/2022 folic acid 1 mg Tablet 1 mg PO DAILY oxybutynin chloride 5 mg Tablet Extended Release 24hr 5 mg PO DAILY potassium chloride 20 mEq Packet 20 meq PO DAILY cyanocobalamin (vitamin B-12) [Vitamin B-12] 500 mcg Tablet 500 mcg PO DAILY ascorbic acid (vitamin C) [Vitamin C] 500 mg Tablet 500 mg PO DAILY ropinirole 0.25 mg Tablet 0.25 mg PO BID pantoprazole 40 mg Tablet,Delayed Release (Dr/Ec) 40 mg PO QHS multivitamin,tx-minerals Tablet 1 tab PO DAILY insulin glargine [Lantus Solostar U-100 Insulin] 100 unit/mL (3 mL) Insulin Pen 50 unit SUBCUT BID guaifenesin 600 mg Tablet Extended Release 12hr 600 mg PO Q12H Trulicity 1.5 mg/0.5 mL Pen Injector 1.5 mg SUBCUT BULLARD Held lisinopril 10 mg Tablet 10 mg PO DAILY Hold Instructions: Resume on 12/07/22. Referrals / Follow Up: SARAH SCHAEFER NP-C [Primary Care Provider] - Disposition Disposition (needs filled in before D/C Order can be placed): Residential Facility
--- NOTE | 2022-12-04 16:06 | PCM.DC.SUM ---
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 EMERGENT Consult: No MD Notified: Yes Date Notified: 11/29/22 Time Notified: 21:52 Method of Notification: Text Reason For Visit: DIABETIC FOOT WOUND Diagnosis Discharge Diagnosis (1) Osteomyelitis of ankle or foot, right, acute: Status: Acute Code(s): M86.171 - Other acute osteomyelitis, right ankle and foot Plan 1. Acute on chronic right first metatarsal diabetic foot ulcer complicated with osteomyelitis, failed recent inpatient and outpatient IV antibiotic treatment: Patient is admitted on [facility] floor. Patient was recently discharged on IV vancomycin and Zosyn [facility] At that time he declined surgery and he wanted to salvage the foot. Culture showed multiple organisms Enterococcus corynebacterium and GNR. Manager [facility] Dr. Quiles is consulted. ID consult with wound culture, MRSA. Recent LES 1222 noted no acute ischemia however diminished TBI. Continue IV vancomycin and Zosyn. 12/01/2022: Plan for OR tomorrow 12/02/2022: Operative repair today, appreciate podiatry and an IDs assistance 12/03/2022: Infectious data still pending, will continue with broad-spectrum antibiotics pending IDs evaluation and adjustment 12/04/2022: Clear for discharge to SNF pending final antibiotic decision 2. HTN/HLD/history of CVA ? Blood pressures are stable ? Continue with his home blood pressure medication ? Continue with his statin ? He does have carotid stenosis and will need repair as an outpatient 3. 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 We will hold his oral regimen ? Continue with insulin ? Accu-Cheks ACHS ? We will make adjustments as necessary ? Creatinine increased 2.08, will hold his lisinopril this morning ? Discussed lifestyle modification 4. COPD/CECILE ? Not in exacerbation ? Continue with inhalers ? Continue BiPAP at night 5. Hypothyroidism ? Stable ? Continue with Synthroid 6. Anxiety/depression/history of alcohol abuse ? Stable ? Continue with his home medications ?Not in alcohol withdrawal and denies recent use we will monitor 7. GERD ? Stable ? Continue with PPI DVT: Lovenox Medications at Discharge Home Medications fluticasone propionate 50 mcg/actuation nasal spray,suspension (Flonase Allergy Relief) 2 spray intranasal DAILY PRN PRN Sinus Congestion 02/14/18 bupropion HCl 150 mg tablet,12 hr sustained-release 150 mg PO BID DEPRESSION 03/21/20 duloxetine 60 mg capsule,delayed release 60 mg PO DAILY DEPRESSION 03/21/20 levothyroxine 75 mcg tablet 225 mcg PO DAILY@0600 thyroid 04/21/20 ergocalciferol (vitamin D2) 1,250 mcg (50,000 unit) capsule (Vitamin D2) 50,000 unit PO TH Check with primary doctor 06/09/22 albuterol sulfate 90 mcg/actuation aerosol inhaler (ProAir HFA) 2 inh inhalation Q4H PRN shortness of breath or wheezing #6.7 grams 06/13/22 carvedilol 12.5 mg tablet 12.5 mg PO BID 30 days #60 tabs 06/13/22 aspirin 81 mg chewable tablet 81 mg PO BREAKFAST heart health 10/05/22 atorvastatin 80 mg tablet 80 mg PO QHS cholesterol 10/05/22 clopidogrel 75 mg tablet 75 mg PO DAILY blood thinner 10/05/22 guaifenesin 1,200 mg tablet, extended release 12 hr (Mucus Relief ER) 600 mg PO BID congesttion 10/05/22 multivitamin with folic acid 400 mcg tablet 1 tab PO DAILYCM supplement 10/05/22 acetaminophen 325 mg tablet (Tylenol) 650 mg PO Q6H PRN PRN Pain 1-10 Or Fever>100.7 #30 tabs 10/09/22 bisacodyl 10 mg rectal suppository 10 mg [place] DAILY PRN Constipation 11/29/22 buspirone 10 mg tablet 10 mg PO BID anxiety 11/29/22 folic acid 1 mg tablet 1 mg PO DAILY Check with primary doctor 11/29/22 ascorbic acid (vitamin C) 500 mg tablet (Vitamin C) 500 mg PO DAILY supplement 11/30/22 cyanocobalamin (vitamin B-12) 500 mcg tablet (Vitamin B-12) 500 mcg PO DAILY supplement 11/30/22 dulaglutide 1.5 mg/0.5 mL subcutaneous pen injector (Trulicity) 1.5 mg subcut BULLARD blood sugar 11/30/22 guaifenesin 600 mg tablet, extended release 12 hr 600 mg PO Q12H . 11/30/22 insulin glargine 100 unit/mL (3 mL) subcutaneous pen (Lantus Solostar U-100 Insulin) 50 unit subcut BID blood sugar 11/30/22 lisinopril 10 mg tablet 10 mg PO DAILY bp 11/30/22 multivitamin,tx-minerals 1 tab PO DAILY health maintance 11/30/22 oxybutynin chloride 5 mg tablet,extended release 24 hr 5 mg PO DAILY bladder spasms 11/30/22 pantoprazole 40 mg tablet,delayed release 40 mg PO QHS stomach 11/30/22 potassium chloride 20 mEq oral packet 20 meq PO DAILY supplement 11/30/22 ropinirole 0.25 mg tablet 0.25 mg PO BID rls 11/30/22 enoxaparin 40 mg/0.4 mL subcutaneous syringe 40 mg (0.4 mL) subcut BID #0 mL 12/04/22 oxycodone 5 mg tablet 5 mg PO Q4H PRN PRN Pain Score 4-10 3 days #10 tabs 12/04/22 piperacillin-tazobactam 3.375 gram intravenous solution 3.375 g IV Q8H 7 days #21 ea 12/04/22 vancomycin 1.25 gram intravenous solution 1.25 g IV Q24H #7 ea 12/04/22 Hospital Course Operations - (Partial first ray resection right foot) Procedures None Summary of Care Provided Minutes Spent on Discharge: 35 Hospital Course: Per HPI: The patient is a 67 y/o M w/ PMHx: COPD, History of EtOH abuse in recovery, 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, HTN, HLD, Anxiety and Depression, CKD stage IIIb, Hx Polysubstance abuse, Former tobacco use, GERD, CECILE on BIPAP q HS, Hypothyroidism, Morbid Obesity, RLS, Hx CVA 06/2022 with left-sided facial droop and left upper extremity weakness secondary to multiple scattered subacute shower microembolic ischemic infarctions in the right cerebellar hemisphere complicated by bilateral carotid stenoses, worse right-sided carotid stenosis, most recently discharged 10/09/22 following evaluation and treatment of R foot osteomyelitis (enterococcus, coryne, and GNR) of the 1st metatarsal treated with IV vanc and zosyn with declined OR per patient w/ stop date per ID 11/16/22 who now re-presents, sent from the SNF with purported history per patient of being discharged from SNF on day of presentation reporting he ran out of days however upon further discussion patient had been referred to the hospitalist secondary to ongoing infected appearing R diabetic foot ulcer despite antibiotic treatments with recommendation for surgical evaluation noted to have been following with Dr. Quiles and Dr. Shukla.? Patient denies any pain to the right foot however he has lack of sensation secondary to severe diabetic neuropathy.? He reports that the wound has more visualization of what appears to be potentially tendon and it had prior but there has not been severe marked purulent drainage from this region.? He denies any significant increased swelling to the region work-up in the ED included T98.2, heart rate 64, BP 116/74, respiratory rate 15, 98% on room air, CBC with WC 10.7, hemoglobin 14.3, platelet 247 without marked shift, ESR 54, BMP with sodium 135, potassium 5.2, chloride 108, 18, BUN/Conforti 7/1.81, glucose 132, CRP less than 2.90, plain film of the right foot secondary to open wound to the right first MTP joint with noted soft tissue irregularity along the medial aspect of the first metatarsophalangeal joint with no underlying osseous destruction to suggest osteomyelitis, sclerosis of the tibial sesamoid and osteomyelitis cannot be entirely ruled out however.? In the ED patient ministered IV vancomycin. ED discussed case with Dr. Quiles who does report concerns for ongoing infection given patient deferral of recommended initial surgery. Hospital Course: 1.? Acute on chronic right first metatarsal diabetic foot ulcer complicated with osteomyelitis, failed recent inpatient and outpatient IV antibiotic treatment: [facility].? Patient was recently discharged on IV vancomycin and Zosyn on [facility].? At that time he declined surgery and he wanted to salvage the foot.? Culture showed multiple organisms Enterococcus corynebacterium and GNR.? Manager [facility] Dr. Quiles is consulted.? ID consult with wound culture, MRSA.? Recent LES 1222 noted no acute ischemia however diminished TBI.? Continue IV vancomycin and Zosyn. 12/01/2022: Plan for OR tomorrow 12/02/2022: Operative repair today, appreciate podiatry and an IDs assistance 12/03/2022: Infectious data still pending, will continue with broad-spectrum antibiotics pending IDs evaluation and adjustment 12/04/2022: We will continue with Vanco and Zosyn for another week while at the [facility], he has developed some mild diarrhea, he can likely try some Imodium at the [facility] will give first dose here. I did discuss with him that the diarrhea is not unexpected given the antibiotics that he is on. He will need to follow-up with with podiatry as an outpatient, they do recommend changing his dressing 3 times a week with Betadine, Adaptic, DSD, and Mickey bandage. 2.? HTN/HLD/history of CVA ? Blood pressures are stable ? Continue with his home blood pressure medication ? Continue with his statin ? He does have carotid stenosis and will need repair as an outpatient 3.? 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 We will hold his oral regimen ? Continue with insulin ? Accu-Cheks ACHS ? We will make adjustments as necessary ? Creatinine increased 2.08, holding lisinopril until Wednesday and follow his BMP while at the [facility] ? Discussed lifestyle modification 4.? COPD/CECILE ? Not in exacerbation ? Continue with inhalers ? Continue BiPAP at night 5.? Hypothyroidism ? Stable ? Continue with Synthroid 6.? Anxiety/depression/history of alcohol abuse ? Stable ? Continue with his home medications ?Not in alcohol withdrawal and denies recent use we will monitor 7.? GERD ? Stable ? Continue with PPI Medical Records Data Medical Nutrition Assessment Dietitian: Malnutrition Criteria Met Start: 11/30/22 11:19 Freq: Status: Active Protocol: Document 12/03/22 08:41 AG (Rec: 12/03/22 08:42 AG [id number]) Nutrition Malnutrition Evidence of Malnutrition Exists No Clinical Problem Chronic Disease or Condition Related Malnutrition Etiology - Signs/Symptoms - Status Inactive Problem Recommendation Dietitian Recommendations/Changes Continue carbohydrate controlled, cardiac diet Weight / BMI Weight Weight: 337 lb 4.916 oz Body Mass Index (BMI) 46.1 ABG / Lab / Microbiology Data Result Diagrams: 12/03/22 05:54 12/04/22 05:48 Laboratory: Laboratory Results - last 24 hr 12/04/22 05:48: Sodium 137, Potassium 3.6, Chloride 109 H, Carbon Dioxide 19.0 L, Anion Gap 9, BUN 30 H, Creatinine 2.08 H, Estim Creat Clear Calc 36.56, Est GFR (MDRD) Af Amer 41 L, Est GFR (MDRD) Non-Af 34 L, BUN/Creatinine Ratio 14.4, Glucose 163 H, Calcium 8.4 L Microbiology: Microbiology 12/02/22 08:54 Tissue - Right Foot Gram Stain - Final 12/02/22 08:54 Tissue - Right Foot Wound Culture - Preliminary Staphylococcus species Gram negative steph Gram negative steph#2 12/02/22 08:54 Tissue - Right Foot Anaerobic Culture - Preliminary No growth in 48 hours. 12/02/22 08:54 Bone - Toe Gram Stain - Final 12/02/22 08:54 Bone - Toe Wound Culture - Preliminary Gram negative steph Staphylococcus species 12/02/22 08:54 Bone - Toe Anaerobic Culture - Preliminary No growth in 48 hours. 11/30/22 00:15 Wound - Right Foot Gram Stain - Final 11/30/22 00:15 Wound - Right Foot Wound Culture - Final No growth aerobically. 11/30/22 00:15 Wound - Right Foot Anaerobic Culture - Preliminary No growth in 48 hours. Meaningful Use Info Meaningful Use Diagnoses (Choose all that apply): None applicable Discharge Plan Admission Admit Date/Time: 11/29/22 21:46 Attending Provider: Dimitri Flanagan Primary Care Provider: SARAH SCHAEFER Consulting Providers: Anne Castaneda ; Kory Kessler ; Brad Castillo ; Jimi Quiles ; Mehdi Shukla Discharge Orders/Prescriptions Prescriptions: New piperacillin-tazobactam 3.375 gram recon soln 3.375 g IV Q8H 7 Days Qty: 21 0RF Rx Instructions: weekly bmp, cbc, esr, and vanc trough. Fax to [phone] dx: foot osteo vancomycin 1.25 gram recon soln 1.25 g IV Q24H Qty: 7 0RF Rx Instructions: weekly bmp, cbc, esr, and vanc trough. Fax to [phone] dx: foot osteo oxycodone 5 mg Tablet 5 mg PO Q4H PRN PRN (Reason: Pain Score 4-10) 3 Days Qty: 10 0RF enoxaparin 40 mg/0.4 mL Syringe 40 mg subcut BID Qty: 0 0RF Continued fluticasone propionate [Flonase Allergy Relief] 50 mcg/actuation spray,suspension 2 spray INTRANASAL DAILY PRN PRN (Reason: Sinus Congestion) duloxetine 60 MG capsule,delayed release(DR/EC) 60 mg PO DAILY bupropion HCl 150 MG tablet sustained-release 12 hr 150 mg PO BID Label Comments: depression levothyroxine 75 MCG tablet 225 mcg PO DAILY@0600 Label Comments: thyroid ergocalciferol (vitamin D2) [Vitamin D2] 1,250 mcg (50,000 unit) capsule 50,000 unit PO TH Rx Instructions: carvedilol 12.5 mg Tablet 12.5 mg PO BID 30 Days Qty: 60 0RF albuterol sulfate [ProAir HFA] 90 mcg/actuation HFA aerosol inhaler 2 inh inhalation Q4H PRN (Reason: shortness of breath or wheezing) Qty: 6.7 0RF atorvastatin 80 mg tablet 80 mg PO QHS clopidogrel 75 mg tablet 75 mg PO DAILY aspirin 81 mg tablet,chewable 81 mg PO BREAKFAST Mucus Relief ER 1,200 mg tablet extended release 12hr 600 mg PO BID multivitamin with folic acid 1 TABLET tablet 1 tab PO DAILYCM acetaminophen [Tylenol] 325 mg Tablet 650 mg PO Q6H PRN PRN (Reason: Pain 1-10 Or Fever>100.7) Qty: 30 0RF bisacodyl 10 mg Suppository 10 mg [place] DAILY PRN (Reason: Constipation) buspirone 10 mg Tablet 10 mg PO BID Rx Instructions: for 2 weeks, end date 12/05/2022 folic acid 1 mg Tablet 1 mg PO DAILY oxybutynin chloride 5 mg Tablet Extended Release 24hr 5 mg PO DAILY potassium chloride 20 mEq Packet 20 meq PO DAILY cyanocobalamin (vitamin B-12) [Vitamin B-12] 500 mcg Tablet 500 mcg PO DAILY ascorbic acid (vitamin C) [Vitamin C] 500 mg Tablet 500 mg PO DAILY ropinirole 0.25 mg Tablet 0.25 mg PO BID pantoprazole 40 mg Tablet,Delayed Release (Dr/Ec) 40 mg PO QHS multivitamin,tx-minerals Tablet 1 tab PO DAILY insulin glargine [Lantus Solostar U-100 Insulin] 100 unit/mL (3 mL) Insulin Pen 50 unit SUBCUT BID guaifenesin 600 mg Tablet Extended Release 12hr 600 mg PO Q12H Trulicity 1.5 mg/0.5 mL Pen Injector 1.5 mg SUBCUT BULLARD Held lisinopril 10 mg Tablet 10 mg PO DAILY Hold Instructions: Resume on 12/07/22. Referrals / Follow Up: SARAH SCHAEFER [facility] [Primary Care Provider] - Disposition Disposition (needs filled in before D/C Order can be placed): [facility] Facility Charges/Coding Visit Charges Inpatient E&M: 58055 Disch Hosp >30min
--- NOTE | 2022-12-04 16:29 | CASEMGMT ---
Social Work Physician states pt is ready for discharge today. SW requested SW sent [facility] to the [facility]. Discharge orders sent to [facility] via [facility]. [facility] with [facility] for 8:30 pickup via cot. TANGELA met with pt and updated about discharge. Pt unhappy with discharge plan but after much discussion, pt willing to go to [facility] today. [facility] and bedside nurse notified of discharge time. Disposition: [facility], skilled level of care ATUL Krause
[2022-12-04] MEDS: 0.9% Saline Lock 10 ML Syringe IV (18:43)
[2022-12-04] MEDS: Loperamide 2 MG Capsule 4 MG PO (18:43)
--- NOTE | 2022-12-04 21:08 | NURSING ---
Report called to [facility], [facility], patient discharged to [facility] at 21:08
== END 2022-12-04 21:08 | DRG 617 ==
LOC: ED 21:37 → MS3 22:59
PROVIDERS: Anesthesiology; Internal Medicine; Internal Medicine Infectious Disease; Podiatrist; Admitting Provider Family Medicine; Emergency Provider Emergency Medicine; PCP Nurse Practitioner Family; Visit Provider Family Medicine
PROC: 0Y6M0Z9 Detachment at Right Foot, Partial 1st Ray, Open Approach (ICD-10-PCS; principal; 2022-12-02 07:15)
DX: E11.621 Type 2 diabetes mellitus with foot ulcer (principal); Z68.42 Body mass index [BMI] 45.0-49.9, adult; M86.171 Other acute osteomyelitis, right ankle and foot; E44.0 Moderate protein-calorie malnutrition; D63.1 Anemia in chronic kidney disease; E11.22 Type 2 diabetes mellitus with diabetic chronic kidney disease; L97.512 Non-pressure chronic ulcer of other part of right foot with fat layer exposed; B95.62 Methicillin resistant Staphylococcus aureus infection as the cause of diseases classified elsewhere; Z99.81 Dependence on supplemental oxygen; E11.42 Type 2 diabetes mellitus with diabetic polyneuropathy; E11.69 Type 2 diabetes mellitus with other specified complication; N18.32 Chronic kidney disease, stage 3b; J44.9 Chronic obstructive pulmonary disease, unspecified; Z79.4 Long term (current) use of insulin; E66.01 Morbid (severe) obesity due to excess calories; Z89.512 Acquired absence of left leg below knee; Z89.432 Acquired absence of left foot; F10.21 Alcohol dependence, in remission; E03.9 Hypothyroidism, unspecified; E78.5 Hyperlipidemia, unspecified; I12.9 Hypertensive chronic kidney disease with stage 1 through stage 4 chronic kidney disease, or unspecified chronic kidney disease; I25.10 Atherosclerotic heart disease of native coronary artery without angina pectoris; K21.9 Gastro-esophageal reflux disease without esophagitis; E87.5 Hyperkalemia; G47.33 Obstructive sleep apnea (adult) (pediatric); F41.9 Anxiety disorder, unspecified; I65.23 Occlusion and stenosis of bilateral carotid arteries; G25.81 Restless legs syndrome; B96.5 Pseudomonas (aeruginosa) (mallei) (pseudomallei) as the cause of diseases classified elsewhere; B96.89 Other specified bacterial agents as the cause of diseases classified elsewhere; F32.A Depression, unspecified; H91.93 Unspecified hearing loss, bilateral; Z79.02 Long term (current) use of antithrombotics/antiplatelets; Z79.82 Long term (current) use of aspirin; Z79.85 Long-term (current) use of injectable non-insulin antidiabetic drugs; Z79.899 Other long term (current) drug therapy; Z86.73 Personal history of transient ischemic attack (TIA), and cerebral infarction without residual deficits; Z87.891 Personal history of nicotine dependence
CPT/HCPCS: 36415; 73620; 73630; 80048; 80053; 80061; 80202; 82962; 83036; 83735; 84439; 84443; 84481; 85014; 85018; 85025; 85652; 86140; 87070; 87075; 87077; 87176; 87184; 87186; 87205; 87640; 87811; 88304; 88311; 93005; 94668; 97802; 97803; 99252; 99285; J7030; J7040; J7050; J7120; A4216; G0463

== ENCOUNTER 2023-02-09 08:14 | Day surgery (SDC) | payer MEDICARE, MEDICAID, SELFPAY ==
[2023-01-01 09:49] VITALS: BMI 48.0
--- NOTE | 2023-02-01 13:53 | PCM.HP.BLA ---
History and Physical Date of Admission: 02/09/23 67-year-old man with an extensive medical history including hyperlipidemia shortness of breath obesity carotid disease peripheral vascular disease status post left below-knee amputation.? He had undergone a cardiac catheterization in 2005 which demonstrated no significant obstructive coronary disease.? He has been noted from a carotid duplex study in June 2022 to have severe more than 70% right extracranial internal carotid artery stenosis and mild left internal carotid artery stenosis.? He underwent an echocardiogram which demonstrated overall preserved left ventricular systolic function estimated at 55% with moderate concentric left ventricular perjury and a dilated left atrium.? Stress test was performed which demonstrated a moderate degree of ischemia involving the distal anterior wall and apex.? The ejection fraction was preserved.? He was sent to us for preoperative evaluation.? He denies any chest pain though he has had some shortness of breath with exertion.? He has had no dizziness or diaphoresis no near syncope or syncope.? He has not had any angina.? His EKG from November of this year demonstrated sinus rhythm with a first-degree AV block and a rate of 77 bpm. 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 Acute CVA (cerebrovascular accident) Acute osteomyelitis of metatarsal bone of right foot Alcohol abuse Alcoholism in recovery Anxiety Arthritis Atherosclerosis of coronary artery of [place] heart without angina pectoris Carotid stenosis with cerebral infarction less than 8 weeks ago Charcot's joint of foot due to diabetes Chest pain Chronic cough Chronic renal failure, stage 3 (moderate) COPD (chronic obstructive pulmonary disease) Depression Diabetes mellitus with diabetic polyneuropathy Diabetic foot ulcer associated with type 2 diabetes mellitus Diabetic infection of right foot Diabetic neuropathy associated with type 2 diabetes mellitus Emphysema, unspecified Enlarged RV (right ventricle) Essential hypertension Former smoker GERD (gastroesophageal reflux disease) GI bleed Grade I diastolic dysfunction Hallux limitus of right foot History of edema History of renal disease Hx of diabetic foot ulcer Hyperlipidemia Hypothyroidism Insulin dependent diabetes mellitus Lives in longterm Loss of hearing Morbid obesity New left bundle branch block Non-compliance Non-pressure chronic ulcer of other part of right foot with fat layer exposed Non-pressure chronic ulcer of other part of right foot with necrosis of muscle CECILE treated with BiPAP Osteoarthritis Osteomyelitis of ankle or foot, right, acute Osteoporosis Physical debility prostate problems Pulmonary hypertension Recurrent infections SARS-CoV-2 positive Shortness of breath on exertion Substance abuse Super obesity TIA (transient ischemic attack) Type 2 diabetes mellitus with foot ulcer Uses wheelchair Venous stasis dermatitis Vitamin deficiency Surgical History? Amputation below knee Below knee amputation History of left heart catheterization (~2005) History of right heart catheterization (~2005) Partial nontraumatic amputation of left foot Family History? Mother Arthritis Diabetes Hypertension High cholesterol OsteoporosisSister Breast cancer Cancer High cholesterolBrother Lung cancer High cholesterolFather Hypertension High cholesterol Social History? household members:? none housing:? apartment Smoking Status:? Former smoker how long ago did patient quit smoking:? 20 year ago alcohol intake:? former year quit: 1996 substance use type:? does not use caffeine:? No ROS Const Const: Negative for fatigue, weakness, headache(s), frequent falls, difficulty sleeping or excessive sweating Eyes Eyes: Negative for loss of peripheral vision, transient loss of vision, blurry vision, double vision or tunnel vision ENT ENT: Positive for balance problems (Related to left BKA); Negative for headache(s), dizziness or Nosebleed/epistaxis Cardio Chest Pain: No Palpitations: Yes (Becomes aware of heart beat with exertion.) Edema: None Muscle aches with walking: None Resp Respiratory: Negative for SOB with activity, SOB at rest, SOB orthopnea\SOB lying down, Cough or paroxysmal nocturnal dyspnea GI GI: Negative nausea, vomiting, heartburn or black,tarry stools : Negative for hematuria Musc Musc: Positive for joint pain and balance problems (Related to left BKA); Negative for muscle aches/ myalgia or muscle weakness Skin Skin: Negative non-healing lesions, rash or unusual bruising Neuro Neuro: Negative for dizziness, lightheadedness, near syncope, syncope, frequent falls, headache(s), weakness, blurry vision, double vision or lack of coordination Lasha Hematologic/Lymphatic: Negative for easy bleeding or easy bruising Endo Endo: Negative for fatigue, excessive sweating or increased thirst/drinking Psych Psych: Negative for anxiety or depression Allergy Allergy/Immunology: Negative for hives and Negative for rash Cardiology Exam Const Appearance: cooperative, healthy appearing, no acute distress, well developed and well groomed Nutritional Appearance: average body habitus and well nourished Orientation: alert, awake and oriented x3 Head Head: normal to inspection, normocephalic and atraumatic Ears: hearing grossly normal bilaterally and external ears normal Nose: external nose normal, nares normal, nasal mucous membranes and turbinates normal, septum normal and no nasal discharge Face and Sinus: face symmetric Mouth: oral mucosae normal, tongue normal, oropharynx normal and moist mucous membranes Teeth and gingiva: dentition normal Throat: posterior oropharynx normal, tonsils normal and uvula midline Eyes General: appearance normal, both eyes and all related structures Eyelids: eyelids normal Conjunctivae: conjunctivae normal Pupils: PERRL, normal by confrontation and accommodation normal EOM: EOM intact bilaterally Neck Neck: normal visual inspection, trachea midline and no JVD JVD: +5 Carotids: normal carotid upstroke and bounding pulses Chest Chest inspection: normal inspection of the chest, symmetric chest movement and normal respiratory effort Auscultation: Bilateral: Clear to Auscultation Cardio Palpation: normal PMI Rate: regular rate Rhythm: regular rhythm Heart sounds: S1 normal, S2 normal and normal, physiologic split S2; Negative rub, gallop or murmur GI GI: normal to inspection, soft, no hepatosplenomegaly and bowel sounds present Neuro General: patient alert, patient awake, patient oriented x3, gait normal, moves all extremities and no focal sensory deficit Skin Skin: no rashes or lesions noted Extremities Pulses: Normal: Right Femoral Pulse, Left Femoral Pulse, Right Dorsalis Pedis Pulse, Left Dorsalis Pedis Pulse, Right Posterior Tibial Pulse, Left Posterior Tibial Pulse, Right Radial Pulse and Left Radial Pulse Lower Extremity Edema: None: Right Left below-knee amputee. Musculoskel Musculoskeletal: No joint tenderness Psych Psychological: normal affect Supplemental Info Supplemental Information Echocardiogram 06/09/2022 Interpretation Summary The study was technically difficult. Based upon the 2D echocardiographic and contrast enhanced images obtained there appears to be grossly normal left ventricular size, wall motion, and systolic function. The estimated ejection fraction is 55 %. Moderate concentric left ventricular hypertrophy. The left atrium is mildly enlarged. Diastolic function is indeterminate. Stress test 06/11/2022 Impression: 1.? Lexiscan stress test test is negative for Lexiscan infusion induced EKG changes of ischemia. 2.? Lexiscan stress test test is negative for Lexiscan infusion induced chest pain. 3.? Results of the nuclear portion of the test is as below. Impression: 1.? Moderate degree of ischemia involving the distal anterior wall and apex cannot be excluded. 2.? Estimated ejection fraction is greater than 70%. Carotid duplex ultrasound 06/11/2022 Interpretation Summary Severe (>70%) stenosis right extracranial internal carotid. Mild (<50%) stenosis left extracranial internal carotid. Patent and antegrade vertebrals bilaterally. ? Right and left heart catheterization 02/10/2006 Final impression: 1.? Mild elevation of the left ventricular end-diastolic pressures, compatible with decreased diastolic compliance. 2.? Secondary pulmonary hypertension, which appears to be somewhat out of proportion to the elevated left ventricular end-diastolic pressure (LVEDP) may be related to his primary underlying pulmonary disease process/chronic obstructive pulmonary disease.3.? Oxygen saturations: No obvious evidence of intracardiac shunting phenomenon. 4.? Left ventricle: Preserved left ventricular systolic function with an estimated left ventricular ejection fraction of 60%. 5.? Left main: Nonexistent and noting to have separate ostia to the left anterior descending and left circumflex system. 6.? Left anterior descending: Angiographically normal. 7.? Left circumflex: Angiographically normal. 8.? Right coronary artery: Very large, dominant vessel?angiographically normal. Labs: ?? ? LDL Cholesterol 35 mg/dL (0-130) ?? ? HDL Cholesterol 23 mg/dL (40-) L ?? ? Triglycerides 124 mg/dL (-199) ?? ? VLDL Cholesterol 25 mg/dL (5-40) Diagnostics: ?? ? Electrocardiogram ? Pulmonary: ?? ? No Data to Display Assessment and Plan Assessment and Plan (1) Preop cardiovascular exam: ?Status:?Acute ?Comment: Left carotid endarterectomy ?Plan: He was evaluated ih cardiology office on 12/2022 for perioperative evaluation for right carotid endarterectomy.? At this time with the abnormal stress test I would recommend that we proceed with a left heart catheterization.? Depending on the findings further recommendations will then be made. (2) Hyperlipidemia: ?Status:?Acute ?Comment: No recent labs available at time of visit. He reports he is not willing to use a statin.? Will obtain labs from [facility] provider.? No medical records available at time of visit. ?Plan: I have urged him that with his significant carotid artery disease he should consider going on a statin.? We will discuss this further after his heart catheterization. (3) Abnormal stress test: ?Status:?Acute ?Plan: He does have an abnormal stress test.? Due to his body habitus there is a chance that this may be a false positive but I think that we can evaluated with a heart catheterization and depending on the findings further recommendations will be made.
--- NOTE | 2023-02-09 12:31 | CL.D_ITS ---
Patient Name: ILIANA WANG Study Date: 02/09/2023 Performing: Koby Franco MD Ht: 70 inches 177.8 cm : 1955 Wt: 334.99 lbs 151.95 kg Age: 67 Gender: male BSA: 2.6 PROCEDURE(S) PERFORMED DC02-([id number])[facility] CLINICAL PROFILE AND INDICATIONS Indications: Suspected CAD Heart Failure: None Stress/Imaging Stress Test w/SPECT MPI: Yes Result: Positive Intermediate RiskStress Test with SPECT MPI: Positive Intermediate Risk CAD Presentations: No Sxs, no angina. CONCLUSIONS Separate ostia LAD/LCX RCA; D1 filling via collaterals from OM1 80% Prox OM2 30% distal RCA RECOMMENDATIONS Refer for evaluation for attempt at GRID CASTER LAD DESCRIPTION OF PROCEDURE The patient arrived to the procedure lab. The risks and benefits of the procedure as well as a full description of our services here and current unavailability of surgical backup were fully explained to the patient and/or their significant other prior to the catheterization. The Timeout was completed, verifying the correct patient and procedure. The patient's procedural site was prepped and draped in the usual fashion. Local anesthetic was given subcutaneously to right radial region with Lidocaine 2%. Using a modified Seldinger technique, arterial access was obtained via the right radial artery, a 6Fr sheath was inserted. Left Coronary Artery selective angiography was performed in multiple views using a 5 Fr. 4.0 Carson catheter. Left Coronary Artery selective angiography was performed in multiple views using a 5 Fr. JL3.5 catheter. Right Coronary Artery selective angiography was then performed in multiple views using a 6 Fr. JR 4 catheter.The arterial sheath was pulled and a TR Band was applied for hemostasis. 10cc of air CORONARY ANGIOGRAPHY DOMINANCE: Right Dominant LEFT ANTERIOR DESCENDING ARTERY: LAD: Calcified 100% Proximal lesion in LAD OM 1: Calcified 80% Proximal lesion in 1st OM OM 2: Calcified 80% Proximal lesion in 2nd OM RIGHT CORONARY ARTERY: RCA: Tubular 20% Distal lesion in RCA COLLATERAL FLOW: Collateral flow from ramus to 1st Diagonal Collateral flow from Right PDA to LAD Collateral flow from 1st OM to 1st Diagonal COMPLICATIONS No Complications PROCEDURE MEDICATIONS Fentanyl 50 mcg IV Versed 1 mg IV Versed 1 mg IV Oxygen: 2 L/min via nasal cannula Heparin given IA 02/09/2023 11:31:25 Verapamil 2.5mg, Ntg 200mcgs, 2000 units of Heparin given IA 02/09/2023 11:31:25 SUMMARY OF HEMODYNAMIC DATA Time AIR REST ECG 08:41:13 AO 110/74 (91) SA 11:46:51 AO 86/42 (60) 11:51:40 Signed By Koby Franco MD On 02/09/2023 12:30:30 Koby Franco MD
== END 2023-02-09 13:55 | disposition home or self-care (01) ==
PROVIDERS: PCP Family Medicine; Referring Provider Internal Medicine Cardiovascular Disease; Visit Provider Internal Medicine Cardiovascular Disease
DX: I25.10 Atherosclerotic heart disease of native coronary artery without angina pectoris (principal); E11.22 Type 2 diabetes mellitus with diabetic chronic kidney disease; Z79.4 Long term (current) use of insulin; N18.30 Chronic kidney disease, stage 3 unspecified; E78.5 Hyperlipidemia, unspecified; G47.33 Obstructive sleep apnea (adult) (pediatric); F41.9 Anxiety disorder, unspecified; F32.A Depression, unspecified; K21.9 Gastro-esophageal reflux disease without esophagitis; E03.9 Hypothyroidism, unspecified; Z87.891 Personal history of nicotine dependence; Z86.73 Personal history of transient ischemic attack (TIA), and cerebral infarction without residual deficits; Z79.82 Long term (current) use of aspirin; Z79.899 Other long term (current) drug therapy
CPT/HCPCS: 93005; 93454; 99152; 99153; C1769; J7040; Q9967; C1894

== ENCOUNTER → 2023-07-01 | Outpatient (CLI) | payer MEDICARE, MEDICAID, SELFPAY ==
[2023-07-01 16:00] LABS: Absolute Lymphocyte Count 3.18 X10^3/uL (0.83-4.51); Absolute Neutrophil Count 6.9 X10^3/uL (2.0-7.7); Basophil# 0.08 X10^3/uL; Basophil% 0.7 % (0-1); Eosinophil# 0.23 X10^3/uL; Hematocrit 49.7 % (40-54); Hemoglobin 15.3 g/dL (13.0-16.5); Lymphocyte # 3.18 X10^3/ul (0.83-4.51); Mean Corp Hgb Conc 30.8 g/dL (32-36); Mean Corpuscular Hgb 26.6 pg (27.0-32.0); Mean Corpuscular Volume 86.4 fL (80-94); Mean Platelet Vol. 10.4 fl (6.2-12.0); Monocyte# 0.86 X10^3/uL; Monocyte% 7.6 % (0-10); NRBC Flagged by Analyzer 0 % (0-5); Neutrophil # 6.89 X10^3/uL (2.7-7.7); Neutrophil % 60.8 % (47-70); Platelet Count 292 K/mm3 (150-450); RBC Distribution Width CV 15.9 % (11.6-14.6); RBC Distribution Width SD 50.1 fl (35.1-43.9); Red Blood Count 5.75 M/mm3 (4.6-6.2); White Blood Count 11.3 K/mm3 (4.4-11.0)
[2023-07-01 16:54] LABS: Anion Gap 6 (5-15); BUN 35 mg/dL (7-18); BUN/Creat Ratio 21.3 RATIO (10-20); Calcium,Total 9.1 mg/dL (8.5-10.1); Chloride 107 mmol/L (98-107); Creatinine, Serum 1.64 mg/dL (0.70-1.30); EST Glomerular Filtration Rate 45 mL/min (>60); Est Glom Filt Rate - Afr Amer 54 mL/min (>60); Glucose 145 mg/dL (74-106); Potassium 4.5 mmol/L (3.5-5.1); Sodium Level 136 mmol/L (136-145)
== END | disposition home or self-care (01) ==
LOC: LAB 15:35
PROVIDERS: Internal Medicine Cardiovascular Disease; Nurse Practitioner Family; PCP Family Medicine; Referring Provider Surgery Trauma Surgery; Visit Provider Surgery Trauma Surgery
DX: E11.621 Type 2 diabetes mellitus with foot ulcer (principal); L97.509 Non-pressure chronic ulcer of other part of unspecified foot with unspecified severity; E11.22 Type 2 diabetes mellitus with diabetic chronic kidney disease; N18.30 Chronic kidney disease, stage 3 unspecified; I12.9 Hypertensive chronic kidney disease with stage 1 through stage 4 chronic kidney disease, or unspecified chronic kidney disease; I25.10 Atherosclerotic heart disease of native coronary artery without angina pectoris; E78.5 Hyperlipidemia, unspecified
CPT/HCPCS: 36415; 80048; 85025

== ENCOUNTER → 2023-07-21 | Outpatient (CLI) | payer MEDICARE, MEDICAID, SELFPAY ==
--- NOTE | 2023-07-21 13:40 | CT_ITS ---
STUDY: CTA NECK WITH CONTRAST REASON FOR EXAM: Male, 67 years old. Right carotid stenosis RADIATION DOSAGE (If Supplied By Facility): CTDIvol = ( 27.63 ) mGy, DLP = ( 847.83 ) mGycm TECHNIQUE: CT angiography with multi-detector data acquisition was performed from the aortic arch to the skull base following intravenous administration of IV 100mL [id number]-370. MIP images were reconstructed from the axial data set. Post-processing of the angiographic images was performed, with multiplanar reformation and 3D reconstruction. Individualized dose optimization techniques were used for this CT. COMPARISON: Comparison is made with prior examination dated June 10, 2022. FINDINGS: AORTIC ARCH: There is atherosclerotic calcific plaque formation of the aortic arch and great vessels arising from the aortic arch, without a hemodynamically significant stenosis. There is a normal origin of the brachiocephalic, left common carotid, and left subclavian arteries. Atherosclerotic plaque formation at the origin of the right brachiocephalic artery as well as the left common carotid artery and left subclavian artery. RIGHT CAROTID ARTERIES: Normal right common carotid artery (CCA). There is extensive atherosclerotic plaque formation with severe narrowing of the right carotid bulb with a hemodynamically significant stenosis. There is severe atherosclerotic plaque formation of the origin of the right internal carotid artery with a near complete occlusion. Normal visualized cervical portion of the right internal carotid artery. Normal origin of the right external carotid artery (ECA). LEFT CAROTID ARTERIES: Normal left common carotid artery (CCA). Normal left common carotid bulb. There is moderate atherosclerotic plaque formation of the origin of the left internal carotid artery with an estimated stenosis of 50-69% stenosis. Normal visualized cervical portion of the left internal carotid artery. Normal origin of the left external carotid artery (ECA). VERTEBRAL ARTERIES: Normal bilateral vertebral arteries. CT/CTA Neck W/WO Contrast IMPRESSION: Bilateral internal carotid artery stenosis due to calcific plaques. Subtotal occlusion at the right carotid bifurcation. 50-69% narrowing at the origin of the left internal carotid Electronically Signed: Wally Arevalo MD at 14:18 EDT ,
== END | disposition home or self-care (01) ==
LOC: CT 12:41
PROVIDERS: PCP Family Medicine; Referring Provider Surgery Trauma Surgery; Visit Provider Surgery Trauma Surgery
DX: I65.21 Occlusion and stenosis of right carotid artery (principal)
CPT/HCPCS: 70498; Q9967; A4216

== ENCOUNTER → 2023-07-27 | Outpatient (CLI) | payer MEDICARE, SELFPAY | END | disposition home or self-care (01) | PROVIDERS: PCP Family Medicine; Visit Provider Podiatrist | DX: L97.512 Non-pressure chronic ulcer of other part of right foot with fat layer exposed (principal) | CPT/HCPCS: 87070; 87075; 87077; 87186; 87205 ==

== ENCOUNTER 2023-09-15 10:04 | Inpatient (IN) | payer MEDICARE, MEDICAID, SELFPAY ==
[2023-08-06 09:53] LABS: Hematocrit 48.7 % (40-54); Hemoglobin 15.3 g/dL (13.0-16.5); Mean Corp Hgb Conc 31.4 g/dL (32-36); Mean Corpuscular Hgb 27.5 pg (27.0-32.0); Mean Corpuscular Volume 87.6 fL (80-94); Mean Platelet Vol. 10.4 fl (6.2-12.0); Platelet Count 269 K/mm3 (150-450); RBC Distribution Width CV 15.4 % (11.6-14.6); RBC Distribution Width SD 49.9 fl (35.1-43.9); Red Blood Count 5.56 M/mm3 (4.6-6.2); White Blood Count 8.9 K/mm3 (4.4-11.0)
[2023-08-06 10:16] LABS: Anion Gap 3 (5-15); BUN 34 mg/dL (7-18); BUN/Creat Ratio 19.4 RATIO (10-20); Calcium,Total 9.2 mg/dL (8.5-10.1); Chloride 108 mmol/L (98-107); Creatinine, Serum 1.75 mg/dL (0.70-1.30); EST Glomerular Filtration Rate 42 mL/min (>60); Est Glom Filt Rate - Afr Amer 51 mL/min (>60); Glucose 181 mg/dL (74-106); Potassium 4.9 mmol/L (3.5-5.1); Sodium Level 138 mmol/L (136-145)
[2023-08-13 08:28] VITALS: BMI 34.4
[2023-09-15] VITALS (19 sets, daily range): BP systolic 85–138; BP diastolic 42–68; PULSE 56–85; RESP 12–20; TEMP 36.2–36.6; O2SAT 94–100; BMI 50.2
[2023-09-15 07:09] LABS: Hematocrit 43.6 % (40-54); Hemoglobin 13.7 g/dL (13.0-16.5); Mean Corp Hgb Conc 31.4 g/dL (32-36); Mean Corpuscular Hgb 27.9 pg (27.0-32.0); Mean Corpuscular Volume 88.8 fL (80-94); Mean Platelet Vol. 9.7 fl (6.2-12.0); Platelet Count 300 K/mm3 (150-450); RBC Distribution Width SD 51.5 fl (35.1-43.9); Red Blood Count 4.91 M/mm3 (4.6-6.2); White Blood Count 11.2 K/mm3 (4.4-11.0)
[2023-09-15 07:23] LABS: Anion Gap 5 (5-15); BUN 29 mg/dL (7-18); BUN/Creat Ratio 17.7 RATIO (10-20); Calcium,Total 8.9 mg/dL (8.5-10.1); Chloride 106 mmol/L (98-107); Creatinine, Serum 1.64 mg/dL (0.70-1.30); EST Glomerular Filtration Rate 45 mL/min (>60); Est Glom Filt Rate - Afr Amer 54 mL/min (>60); Estimated Creatinine Clearance 46.37 ml/min; Glucose 168 mg/dL (74-106); Potassium 4.5 mmol/L (3.5-5.1); Sodium Level 135 mmol/L (136-145)
--- NOTE | 2023-09-15 07:59 | HP.PCM_ITS ---
HPI - General HPI Narrative ILIANA WANG, is a 67 M who presents for previously symptomatic right ICA stenosis. He is high risk from cardiac standpoint making him a poor candidate for endarterectomy or general anesthesia required for TCAR. Transfemoral stent is felt to be his bet option. [facility] Medical History Acute CVA (cerebrovascular accident) Acute osteomyelitis of metatarsal bone of right foot Alcohol abuse Alcoholism in recovery Anxiety Arthritis Atherosclerosis of coronary artery of [place] heart without angina pectoris Carotid stenosis with cerebral infarction less than 8 weeks ago Charcot's joint of foot due to diabetes Chest pain Chronic cough Chronic renal failure, stage 3 (moderate) COPD (chronic obstructive pulmonary disease) Depression Diabetes mellitus with diabetic polyneuropathy Diabetic foot ulcer associated with type 2 diabetes mellitus Diabetic infection of right foot Diabetic neuropathy associated with type 2 diabetes mellitus Emphysema, unspecified Enlarged RV (right ventricle) Essential hypertension Former smoker GERD (gastroesophageal reflux disease) GI bleed Grade I diastolic dysfunction Hallux limitus of right foot History of edema History of renal disease Hx of diabetic foot ulcer Hyperlipidemia Hypothyroidism Insulin dependent diabetes mellitus Lives in jail Loss of hearing Morbid obesity New left bundle branch block Non-compliance Non-pressure chronic ulcer of other part of right foot with fat layer exposed Non-pressure chronic ulcer of other part of right foot with necrosis of muscle CECILE treated with BiPAP Osteoarthritis Osteomyelitis of ankle or foot, right, acute Osteoporosis Physical debility prostate problems Pulmonary hypertension Recurrent infections SARS-CoV-2 positive Shortness of breath on exertion Substance abuse Super obesity TIA (transient ischemic attack) Type 2 diabetes mellitus with foot ulcer Uses wheelchair Venous stasis dermatitis Vitamin deficiency Home Medications fluticasone propionate 50 mcg/actuation nasal spray,suspension (Flonase Allergy Relief) 2 spray intranasal DAILY PRN PRN Sinus Congestion 02/14/18 [History Last Taken 10/05/22] bupropion HCl 150 mg tablet,12 hr sustained-release 150 mg PO BID DEPRESSION 03/21/20 [History Last Taken 02/09/23] duloxetine 60 mg capsule,delayed release 60 mg PO QHS DEPRESSION 03/21/20 [History Last Taken 11/29/22 08:00] levothyroxine 75 mcg tablet 225 mcg PO DAILY@0600 thyroid 04/21/20 [History Last Taken 02/09/23] ergocalciferol (vitamin D2) 1,250 mcg (50,000 unit) capsule (Vitamin D2) 50,000 unit PO TH Check with primary doctor 06/09/22 [History Last Taken 11/26/22] albuterol sulfate 90 mcg/actuation aerosol inhaler (ProAir HFA) 2 inh inhalation Q4H PRN shortness of breath or wheezing #6.7 grams 06/13/22 [Rx Last Taken 10/04/22] aspirin 81 mg chewable tablet 81 mg PO BREAKFAST heart health 10/05/22 [History Last Taken 09/15/23] atorvastatin 80 mg tablet 80 mg PO QHS cholesterol 10/05/22 [History Last Taken 11/28/22 22:00] clopidogrel 75 mg tablet 75 mg PO QHS blood thinner 10/05/22 [History Last Taken 02/08/23] acetaminophen 325 mg tablet (Tylenol) 650 mg (2 x 325 mg) PO Q6H PRN PRN Pain 1- 10 Or Fever>100.7 #30 tabs 10/09/22 [Rx Last Taken Unknown] bisacodyl 10 mg rectal suppository 10 mg PA DAILY PRN Constipation 11/29/22 [History Last Taken Unknown] folic acid 1 mg tablet 1 mg PO DAILY Check with primary doctor 11/29/22 [History Last Taken 11/29/22 08:00] ascorbic acid (vitamin C) 500 mg tablet (Vitamin C) 500 mg PO DAILY supplement 11/30/22 [History Last Taken 11/29/22] cyanocobalamin (vitamin B-12) 500 mcg tablet (Vitamin B-12) 500 mcg PO DAILY supplement 11/30/22 [History Last Taken 11/29/22] lisinopril 10 mg tablet 10 mg PO DAILY bp 11/30/22 [History Last Taken 02/09/23] multivitamin,tx-minerals 1 tab PO DAILY health maintance 11/30/22 [History Last Taken 11/30/22] oxybutynin chloride 5 mg tablet,extended release 24 hr 5 mg PO QHS bladder spasms 11/30/22 [History Last Taken 11/30/22] ropinirole 0.25 mg tablet 0.25 mg PO BID rls 11/30/22 [History Last Taken 02/09/23] magnesium hydroxide 400 mg/5 mL oral suspension (Milk of Magnesia) 30 ml PO DAILY PRN Constipation 12/31/22 [History Last Taken Unknown] trazodone 50 mg tablet 50 mg PO QHS 12/31/22 [History Last Taken Unknown] insulin glargine 100 unit/mL (3 mL) subcutaneous pen (Lantus Solostar U-100 Insulin) 60 unit subcut BID blood sugar 03/04/23 [History Last Taken Unknown] metoprolol succinate 50 mg tablet,extended release 24 hr 50 mg PO DAILY 03/04/23 [History Last Taken Unknown] pantoprazole 40 mg tablet,delayed release 40 mg PO DAILY stomach 03/04/23 [History Last Taken Unknown] escitalopram oxalate 5 mg tablet 5 mg PO DAILY 04/14/23 [History Last Taken Unknown] isosorbide mononitrate 30 mg tablet,extended release 24 hr 30 mg PO DAILY #30 tabs 04/14/23 [Rx Last Taken Unknown] loratadine 10 mg tablet 10 mg PO DAILY 04/14/23 [History Last Taken Unknown] dulaglutide 1.5 mg/0.5 mL subcutaneous pen injector (Trulicity) 1.5 mg subcut QW [place] blood sugar 07/26/23 [History Last Taken Unknown] gabapentin 300 mg capsule 300 mg PO QHS 07/26/23 [History Last Taken Unknown] insulin lispro 100 unit/mL subcutaneous pen 15 unit subcut TID 07/26/23 [History Last Taken Unknown] ticagrelor 90 mg tablet (Brilinta) 90 mg PO BID 09/15/23 [History Last Taken 09/15/23] Allergy/AdvReac Type Severity Reaction Status Date / Time No Known Allergies Allergy Verified 07/26/23 13:09 Family History Mother Arthritis Diabetes Hypertension High cholesterol Osteoporosis Sister Breast cancer Cancer High cholesterol Brother Lung cancer High cholesterol Father Hypertension High cholesterol Surgical History Amputation below knee Below knee amputation History of left heart catheterization (~2005) History of right heart catheterization (~2005) Partial nontraumatic amputation of left foot Social History household members: none housing: apartment Smoking Status: Former smoker how long ago did patient quit smokin year ago alcohol intake: former year quit: 1996 substance use type: does not use caffeine: No ROS Constitutional Constitutional: Denies chills, fever(s), frequent falls, lethargy or weakness Eyes Eyes: Denies blind spots, change in vision or loss of vision ENT HEENT: Denies bleeding gums, hoarseness or sore throat Cardiovascular Cardiovascular: Denies abdominal pain, bluish discoloration of hand/feet, chest pain with activity, claudication, cold extremities, cyanosis, dyspnea on exertion, erythema on extremities, irregular heart rhythm, leg edema, leg ulcers, numbness in extremities or weakness in extremities Respiratory/Chest Respiratory/Chest: Denies cough, excessive phlegm production, shortness of breath at rest, shortness of breath with exertion or wheezing Gastrointestinal Gastrointestinal: Denies anorexia, change in stool character, constipation, diarrhea, melena or rectal bleeding Genitourinary Genitourinary: Denies dysuria or hematuria Musculoskeletal Musculoskeletal: Denies abnormal gait Integumentary Integumentary: Reports other Details: ; Denies erythema, non-healing lesions or wounds Neurologic Neurologic: Denies abnormal speech, focal weakness, headache(s), loss of vision, numbness, paresthesias or sensory deficit Hematologic/Lymphatic Hematologic/Lymphatic: Denies easy bleeding, easy bruising or lymphadenopathy Vital Signs Vital Signs Vital Signs: Weight Weight: 350 lb Body Mass Index (BMI) 34.4 Physical Exam Const alert, oriented x3, no apparent distress and healthy appearing General Appearance: cooperative; Negative for combative or lethargic Orientation / Consciousness: awake Exam Limitations: no limitations HEENT Head and Scalp: normocephalic and atraumatic Eyes EOMs intact bilaterally General Eye: normal appearance of both eyes Neck full ROM, no lymphadenopathy, thyroid normal and No no carotid bruits General: trachea midline; Negative for lymphadenopathy or tenderness Thyroid: thyroid normal Lymph Lymphatic: Negative for no lymphadenopathy noted Resp normal respiratory effort, no use of accessory muscles and clear to auscultation bilaterally Effort and Inspection: Negative for labored, stridor or audible wheezes Cardio regular rate, regular rhythm and no murmurs Peripheral Pulses: brachial pulses present, radial pulses present, femoral pulses present, popliteal pulses present, posterior tibial pulses present and dorsalis pedis pulses present GI non-tender and non-distended; Negative for hepatosplenomegaly Back/Spine Cervical Spine: cervical ROM normal Extremity full ROM, normal capillary refill and no clubbing, cyanosis or edema Skin no rashes or lesions noted and no wounds Neuro oriented x3, CN's II-XII intact bilaterally, no focal motor deficits and no sensory deficits noted Psych thought process normal, cooperative, affect normal, speech normal and activity/motor behavior normal Results Lab / Micro Data 09/15/23 06:52 09/15/23 06:52 Labs: Laboratory Results - last 24 hr 09/15/23 06:52: WBC 11.2 H, RBC 4.91, Hgb 13.7, Hct 43.6, MCV 88.8, MCH 27.9, MCHC 31.4 L, RDW Std Deviation 51.5 H, RDW Coeff of Jose 16.0 H, Plt Count 300, MPV 9.7, Sodium 135 L, Potassium 4.5, Chloride 106, Carbon Dioxide 24.0, Anion Gap 5, BUN 29 H, Creatinine 1.64 H, Estim Creat Clear Calc 46.37, Est GFR (MDRD) Af Amer 54 L, Est GFR (MDRD) Non-Af 45 L, BUN/Creatinine Ratio 17.7, Glucose 168 H, Calcium 8.9 Assessment & Plan Assessment/Plan (1) Carotid stenosis, right: PLAN: -right transfemoral carotid stent
--- NOTE | 2023-09-15 10:18 | PCM.OPRPT ---
Report of Operation Date of Procedure: 09/15/23 Pre-Operative Diagnosis: right carotid artery stenosis Post-Operative Diagnosis: same Surgery/Procedure Performed:: right carotid stent Surgeon: Mehdi Shukla Type of Anesthesia: Local and Sedation,Conscious Estimated Blood Loss (mL): 5 Description of Procedure: HPI: Patient is a 67-year-old male with a symptomatic right carotid artery stenosis. He is felt to be too high risk for general anesthetic so therefore carotid endarterectomy and transcarotid artery stenting is not an option for him. He is taken now for transfemoral carotid artery stenting. Description of procedure: Upon obtaining form consent and verification correct patient procedure site patient taken to the Store Administrator was positioned prepped and draped in usual fashion. Time was performed conscious sedation was administered with Versed and fentanyl. Skin overlying the right common femoral artery was anesthetized 1% lidocaine and the vessel accessed under sterile fashion on my questioning the wire. This then exchanged for micropuncture sheath through which injection femoral angiogram was performed which revealed access within the proximal component of the SFA with no extravasation or dissection. Given the patient's large body habitus felt that more superior axis would be impossible to obtain so we decided to proceed with her SFA as access point given that it was a large caliber vessel with no significant disease. Through the micropuncture sheath a Bentson wire is advanced and the micropuncture sheath exchanged out for a short 6 Swazi sheath. Through 6 Swazi sheath a pigtail catheter advanced into the aortic arch and digital subtraction arteriogram was performed. This revealed a type I arch with normal anatomic configuration great vessels. This point the patient was heparinized and serial dosing performed based on ACT results. Through the pigtail Bentson wire was advanced and the pigtail exchanged for an H1 catheter which was then used to selectively cannulate the innominate artery. The Bentson wire was then exchanged for a TAD wire which was advanced traversing the innominate and ultimately into the common carotid artery. The catheter and short sheath were then exchanged out for a 6 Swazi 110 shuttle sheath which was advanced and positioned in the distal common carotid artery. We then used a Hernandez bare wire to traverse the lesion and then advanced a [employer] distal protection filter which was then deployed in position. Given the significant calcifications of the vessel a shockwave intravascular lithotripsy balloon was advanced in position and deployed for 4 cycles of 30. This revealed satisfactory resolution of the lesion with no residual stenosis. The balloon was then withdrawn and an Hernandez exact carotid stent 7 to 9 x 40 was advanced in the position and deployed. Completion angiogram confirmed satisfactory stent placement with good stent expansion and minimal residual stenosis and no extravasation or dissection. Is felt that the minimal residual stenosis was acceptable so the filter was then retrieved and the long 6 Swazi sheath exchanged for a short 6 Swazi sheath over the Bentson wire. Next a minx device was deployed with satisfactory stasis noted. Patient was then taken the intensive care unit for hemodynamic and neurologic monitoring.
[2023-09-15] MEDS: 0.45% Normal Saline 1,000 ML 75 ML IV (11:00)
[2023-09-15 11:35] LABS: Bedside Glucose 146 mg/dL (74-106)
--- NOTE | 2023-09-15 11:44 | NURSING ---
Patient hypotensive on receipt of patient from cath lab radiological technologist. Dr Shukla notified and orders received to stat Levophed gtt to maintain MAP>65, while waiting for GTT to arrive from pharmacy, patient's BP improved just enough to achieve MAP of 65. Will hold Levo at this time and continue to monitor, will initiate Gtt if and when it is indicated.
[2023-09-15] MEDS: oxyCODONE 5 MG Tablet PO (16:49)
[2023-09-15] MEDS: DULoxetine Hcl 60 MG Capsule PO (16:49)
[2023-09-15] MEDS: Tolterodine Tartrate 2 MG CAP.SA PO (16:49)
[2023-09-15] MEDS: traZODone 50 MG Tablet PO (16:50)
[2023-09-15] MEDS: Pramipexole Di-HCl 0.125 MG Tablet PO (16:50)
[2023-09-15] MEDS: buPROPion (SR) 150 MG Tablet.SA PO (16:51)
[2023-09-15] MEDS: Atorvastatin Calcium 80 MG Tablet PO (21:56)
[2023-09-15] MEDS: TICAGRELOR 90 MG TABLET PO (21:56)
[2023-09-15] MEDS: Gabapentin 300 MG Capsule PO (21:56)
[2023-09-15 22:19] LABS: Bedside Glucose 86 mg/dL (74-106)
--- NOTE | 2023-09-15 22:51 | NURSING ---
Pt moderately agitated upon coming on shift. Pt turning self in room, continually pulling and yanking ART line, IV and ECG leads with him. Attempted multiple times to help patient get untangled from lines and to educate patient on the importance of keeping patent lines. Pt states to this RN this is why people don't come to the hospital. Pt becoming more frustrated. 2144, pt ripped off bipap mask and tossed to the side. Pt states he can no longer wear the bipap, at this time, this RN placed pt on 2 L NC. 1015- pt using Yemi cha RN to room, pt requesting bipap back on because he cant deal with the nasal cannula. Respiratory notified that pt was placed back onto bipap.
[2023-09-16] VITALS (13 sets, daily range): BP systolic 92–136; BP diastolic 44–78; PULSE 57–92; RESP 11–18; TEMP 36.2–36.7; O2SAT 95–99; BMI 52.7
[2023-09-16] MEDS: 0.45% Normal Saline 1,000 ML 75 ML IV (01:52)
[2023-09-16 04:43] LABS: Absolute Lymphocyte Count 2.38 X10^3/uL (0.83-4.51); Absolute Neutrophil Count 6.5 X10^3/uL (2.0-7.7); Basophil# 0.06 X10^3/uL; Basophil% 0.6 % (0-1); Eosinophil# 0.31 X10^3/uL; Hematocrit 37.9 % (40-54); Hemoglobin 12.1 g/dL (13.0-16.5); Lymphocyte # 2.38 X10^3/ul (0.83-4.51); Lymphocyte % 23.1 % (19-41); Mean Corp Hgb Conc 31.9 g/dL (32-36); Mean Corpuscular Hgb 27.9 pg (27.0-32.0); Mean Corpuscular Volume 87.5 fL (80-94); Mean Platelet Vol. 9.8 fl (6.2-12.0); Monocyte# 0.89 X10^3/uL; Monocyte% 8.6 % (0-10); NRBC Flagged by Analyzer 0 % (0-5); Neutrophil # 6.53 X10^3/uL (2.7-7.7); Neutrophil % 63.5 % (47-70); Platelet Count 280 K/mm3 (150-450); RBC Distribution Width CV 15.9 % (11.6-14.6); RBC Distribution Width SD 50.6 fl (35.1-43.9); Red Blood Count 4.33 M/mm3 (4.6-6.2); White Blood Count 10.3 K/mm3 (4.4-11.0)
[2023-09-16] MEDS: Levothyroxine 75 MCG Tablet 225 MCG PO (06:44)
[2023-09-16] MEDS: Escitalopram Oxalate 10 MG Tablet 5 MG PO (08:03)
[2023-09-16] MEDS: Aspirin 81 MG TAB.CHEW PO (08:03)
[2023-09-16] MEDS: Ergocalciferol 1.25 MG (50, 000 UNIT) Capsule PO (08:03)
[2023-09-16] MEDS: Multivitamins,Ther W-Minerals Tablet 1 TABLET PO (08:03)
[2023-09-16] MEDS: Pantoprazole Sodium 40 MG Tablet PO (08:03)
[2023-09-16] MEDS: Cyanocobalamin 500 MCG Tablet PO (08:03)
--- NOTE | 2023-09-16 08:03 | PCM.PN.SRG ---
Subjective Subjective Patient was examined at bedside this morning, resting comfortably. He denies any new or worsening pain at the right femoral access site. He has been hemodynamically and neurologically stable overnight. No facial drooping, dysarthria, vision changes, focal motor weakness or sensory deficits, unilateral headache. Objective Data Objective Data Vital Signs: Vital Signs Temp Pulse Resp BP Pulse Ox O2 Del Method O2 Flow Rate 97.2 F L 62 15 115/58 L 96 Bi-pap 2 09/16/23 06:00 09/16/23 06:00 09/16/23 06:00 09/16/23 06:00 09/16/23 06:00 09/16/23 06:00 09/15/23 15:30 FiO2 30 09/16/23 06:00 Oxygen Flow Rate (L/min) 2 Oxygen Delivery Method Bi-pap Weight: 367 lb 4.642 oz Body Mass Index (BMI) 52.7 Intake & Output: Intake and Output for Last 24 Hours 09/14/23 09/15/23 09/16/23 23:59 23:59 23:59 Intake Total 1000 / 1000 Output Total 350 / 350 800 / 800 Balance -350 / -350 200 / 200 Lab / Micro Data 09/16/23 04:30 09/15/23 06:52 Labs: Laboratory Results - last 24 hr 09/15/23 06:52: Blood Type O POSITIVE, Antibody Screen NEGATIVE 09/15/23 11:16: POC Glucose 146 H 09/15/23 21:54: POC Glucose 86 09/16/23 04:30: WBC 10.3, RBC 4.33 L, Hgb 12.1 L, Hct 37.9 L, MCV 87.5, MCH 27.9, MCHC 31.9 L, RDW Std Deviation 50.6 H, RDW Coeff of Jose 15.9 H, Plt Count 280, MPV 9.8, Immature Gran % (Auto) 1.200 H, Neut % (Auto) 63.5, Lymph % (Auto) 23.1, [place] % (Auto) 8.6, Eos % (Auto) 3.0, Baso % (Auto) 0.6, Absolute Neuts (auto) 6.5, Absolute Lymphs (auto) 2.38, Nucleated RBC % 0 Physical Exam Const alert, oriented x3 and no apparent distress General Appearance: cooperative; Negative for combative or lethargic Orientation / Consciousness: awake Exam Limitations: no limitations HEENT Head and Scalp: normocephalic and atraumatic Eyes EOMs intact bilaterally General Eye: normal appearance of both eyes Neck full ROM and no lymphadenopathy General: trachea midline; Negative for lymphadenopathy or tenderness Lymph Lymphatic: Negative for no lymphadenopathy noted Resp normal respiratory effort, no use of accessory muscles and clear to auscultation bilaterally Effort and Inspection: Negative for labored, stridor or audible wheezes Cardio regular rate and regular rhythm Peripheral Pulses: brachial pulses present, radial pulses present and femoral pulses present GI non-tender and non-distended; Negative for hepatosplenomegaly Back/Spine Cervical Spine: cervical ROM normal Extremity no clubbing, cyanosis or edema Extremity Narrative: Left BKA. Right femoral access site without any bleeding, hematoma formation. No significant swelling, bruising, erythema, warmth. Skin no rashes or lesions noted Trauma: no lacerations or abrasions Neuro oriented x3, CN's II-XII intact bilaterally, no focal motor deficits and no sensory deficits noted Psych thought process normal, cooperative, affect normal, speech normal and activity/motor behavior normal Assessment & Plan Assessment/Plan (1) Carotid stenosis, right: PLAN: Patient is status post transfemoral right carotid artery stenting performed yesterday. He has remained hemodynamically and neurologically stable overnight. This morning, he has no specific complaints. He denies any pain at the access site. On exam, no signs concerning for bleeding, hematoma, or infection at the access site. He is voiding without difficulty, tolerating a normal diet. Patient resides at [facility], the [place]. I have consulted case management to coordinate his return there upon discharge. He will continue with aspirin, statin, and Brilinta. Planning for discharge later this morning as long as everything is able to be coordinated with SNF.
[2023-09-16] MEDS: Pramipexole Di-HCl 0.125 MG Tablet PO (08:04)
[2023-09-16] MEDS: Ascorbic Acid 500 MG Tablet PO (08:04)
[2023-09-16] MEDS: Folic Acid 1 MG Tablet PO (08:04)
[2023-09-16] MEDS: TICAGRELOR 90 MG TABLET PO (08:04)
[2023-09-16] MEDS: buPROPion (SR) 150 MG Tablet.SA PO (08:04)
[2023-09-16] MEDS: Lisinopril 10 MG Tablet PO (08:04)
[2023-09-16] MEDS: Isosorbide Mononitrate 30 MG Tablet PO (08:04)
--- NOTE | 2023-09-16 08:10 | DS.PCM_ITS ---
Providers Date of Admission: 09/15/23 Primary Care Physician: Dr. Domo Blake MD Reason For Visit: CAROTID STENT Diagnosis Discharge Diagnosis (1) Carotid stenosis, right: Status: Chronic Code(s): I65.21 - Occlusion and stenosis of right carotid artery Plan: Patient is status post transfemoral right carotid artery stenting performed yesterday. He has remained hemodynamically and neurologically stable overnight. This morning, he has no specific complaints. He denies any pain at the access site. On exam, no signs concerning for bleeding, hematoma, or infection at the access site. He is voiding without difficulty, tolerating a normal diet. Patient resides at [facility], the [place]. I have consulted case management to coordinate his return there upon discharge. He will continue with aspirin, statin, and Brilinta. Planning for discharge later this morning as long as everything is able to be coordinated with [facility]. Medications at Discharge Home Medications fluticasone propionate 50 mcg/actuation nasal spray,suspension (Flonase Allergy Relief) 2 spray intranasal DAILY PRN PRN Sinus Congestion 02/14/18 bupropion HCl 150 mg tablet,12 hr sustained-release 150 mg PO BID DEPRESSION 03/21/20 duloxetine 60 mg capsule,delayed release 60 mg PO QHS DEPRESSION 03/21/20 levothyroxine 75 mcg tablet 225 mcg PO DAILY@0600 thyroid 04/21/20 ergocalciferol (vitamin D2) 1,250 mcg (50,000 unit) capsule (Vitamin D2) 50,000 unit PO TH Check with primary doctor 06/09/22 albuterol sulfate 90 mcg/actuation aerosol inhaler (ProAir HFA) 2 inh inhalation Q4H PRN shortness of breath or wheezing #6.7 grams 06/13/22 aspirin 81 mg chewable tablet 81 mg PO BREAKFAST heart health 10/05/22 atorvastatin 80 mg tablet 80 mg PO QHS cholesterol 10/05/22 clopidogrel 75 mg tablet 75 mg PO QHS blood thinner 10/05/22 acetaminophen 325 mg tablet (Tylenol) 650 mg (2 x 325 mg) PO Q6H PRN PRN Pain 1- 10 Or Fever>100.7 #30 tabs 10/09/22 bisacodyl 10 mg rectal suppository 10 mg DE DAILY PRN Constipation 11/29/22 folic acid 1 mg tablet 1 mg PO DAILY Check with primary doctor 11/29/22 ascorbic acid (vitamin C) 500 mg tablet (Vitamin C) 500 mg PO DAILY supplement 11/30/22 cyanocobalamin (vitamin B-12) 500 mcg tablet (Vitamin B-12) 500 mcg PO DAILY sup plement 11/30/22 lisinopril 10 mg tablet 10 mg PO DAILY bp 11/30/22 multivitamin,tx-minerals 1 tab PO DAILY health maintance 11/30/22 oxybutynin chloride 5 mg tablet,extended release 24 hr 5 mg PO QHS bladder spasms 11/30/22 ropinirole 0.25 mg tablet 0.25 mg PO BID rls 11/30/22 magnesium hydroxide 400 mg/5 mL oral suspension (Milk of Magnesia) 30 ml PO DAILY PRN Constipation 12/31/22 trazodone 50 mg tablet 50 mg PO QHS 12/31/22 insulin glargine 100 unit/mL (3 mL) subcutaneous pen (Lantus Solostar U-100 Insulin) 60 unit subcut BID blood sugar 03/04/23 metoprolol succinate 50 mg tablet,extended release 24 hr 50 mg PO DAILY 03/04/23 pantoprazole 40 mg tablet,delayed release 40 mg PO DAILY stomach 03/04/23 escitalopram oxalate 5 mg tablet 5 mg PO DAILY 04/14/23 isosorbide mononitrate 30 mg tablet,extended release 24 hr 30 mg PO DAILY #30 tabs 04/14/23 loratadine 10 mg tablet 10 mg PO DAILY 04/14/23 dulaglutide 1.5 mg/0.5 mL subcutaneous pen injector (Trulicity) 1.5 mg subcut Q WEEK blood sugar 07/26/23 gabapentin 300 mg capsule 300 mg PO QHS 07/26/23 insulin lispro 100 unit/mL subcutaneous pen 15 unit subcut TID 07/26/23 ticagrelor 90 mg tablet (Brilinta) 90 mg PO BID 09/15/23 oxycodone 5 mg tablet 5 mg PO Q8H PRN PRN Pain Score 4-10 3 days #9 tabs 09/16/23 Hospital Course Summary of Care Provided Hospital Course: Mr. Christopher is a 67-year-old male who underwent right carotid artery stenting via transfemoral approach by Dr. Shukla on 09/15/2023. He tolerated the procedure w ell and was routinely admitted to the ICU for continued hemodynamic and neurologic monitoring postoperatively. He has remained hemodynamically and neurologically stable throughout his admission. This morning, right femoral access site is without any swelling, ecchymosis/hematoma, bleeding, infection. His pain is well controlled, he is voiding without difficulty, and he is tolerating a normal diet. He is medically stable for discharge and will be returning to SNF. Brilinta was initiated prior to surgery and he will continue with Brilinta for an additional 30 days from surgery. We will continue with aspirin and statin as well. He will follow-up with us in the office as an outpatient as scheduled on 10/06/2023 or sooner as needed. Physical Exam Const alert, oriented x3 and no apparent distress General Appearance: cooperative; Negative for combative or lethargic Orientation / Consciousness: awake Exam Limitations: no limitations HEENT Head and Scalp: normocephalic and atraumatic Eyes EOMs intact bilaterally General Eye: normal appearance of both eyes Neck full ROM and no lymphadenopathy General: trachea midline; Negative for lymphadenopathy or tenderness Lymph Lymphatic: Negative for no lymphadenopathy noted Resp normal respiratory effort, no use of accessory muscles and clear to auscultation bilaterally Effort and Inspection: Negative for labored, stridor or audible wheezes Cardio regular rate and regular rhythm Peripheral Pulses: brachial pulses present, radial pulses present and femoral pulses present GI non-tender and non-distended; Negative for hepatosplenomegaly Back/Spine Cervical Spine: cervical ROM normal Extremity no clubbing, cyanosis or edema Extremity Narrative: Left BKA. Right femoral access site without any bleeding, hematoma formation. No significant swelling, bruising, erythema, warmth. Skin no rashes or lesions noted Trauma: no lacerations or abrasions Neuro oriented x3, CN's II-XII intact bilaterally, no focal motor deficits and no sensory deficits noted Psych thought process normal, cooperative, affect normal, speech normal and activity/motor behavior normal Weight / BMI Weight Weight: 367 lb 4.642 oz Body Mass Index (BMI) 52.7 ABG / Lab / Microbiology Data 09/16/23 04:30 09/15/23 06:52 Laboratory: Laboratory Results - last 24 hr 09/15/23 06:52: Blood Type O POSITIVE, Antibody Screen NEGATIVE 09/15/23 11:16: POC Glucose 146 H 09/15/23 21:54: POC Glucose 86 09/16/23 04:30: WBC 10.3, RBC 4.33 L, Hgb 12.1 L, Hct 37.9 L, MCV 87.5, MCH 27.9, MCHC 31.9 L, RDW Std Deviation 50.6 H, RDW Coeff of Jose 15.9 H, Plt Count 280, MPV 9.8, Immature Gran % (Auto) 1.200 H, Neut % (Auto) 63.5, Lymph % (Auto) 23.1, Sampson % (Auto) 8.6, Eos % (Auto) 3.0, Baso % (Auto) 0.6, Absolute Neuts (auto) 6.5, Absolute Lymphs (auto) 2.38, Nucleated RBC % 0 D/C Instructions Discharge Diet: No restrictions May shower in (days): 1 Weight Bearing Status: Weight bearing as tolerated Lifting Restricted to (Lbs): 20 Lifting Restrictions: Do not lift greater than 20 pounds for 3 weeks. Call your doctor if your incision/area has: Sudden Increased Bleeding, Increased Pain/ Swelling and Foul Smelling Discharge Call your doctor if you observe: Fever of 101 or Higher and Uncontrolled pain Additional Instructions: The right groin access site does not have any sutures or anything that will need to be removed. Just monitor the site for any new or worsening pain, swelling. Continue to take Brilinta (ticagrelor) 90 mg by mouth twice daily as prescribed for 30 more days. Continue to take aspirin 81 mg daily and atorvastatin 80 mg daily as prescribed. Continue to hold Plavix while taking the Brilinta. You may shower tomorrow. It is okay for soap and water to rinse over the right groin access site, pat to dry. Do not submerge the access site in water such as to take a bath for 3 weeks. Do not lift greater than 20 pounds for 3 weeks. Return to the office for your postoperative visit in 3 weeks as scheduled on 10/06/2023. If the appointment date or time needs to be changed or you have any other questions or concerns please contact the office at [phone]. Please Follow Up With: Mehdi Shukla MD When: 10/06/2023 Meaningful Use Info Meaningful Use Diagnoses (Choose all that apply): None applicable Discharge Plan Admission Admit Date/Time: 09/15/23 10:04 Primary Reason for Your Visit: Right transfemoral carotid artery stent Attending Provider: Mehdi Shukla Primary Care Provider: Domo Blake Instructions Additional Instructions / Restrictions: The right groin access site does not have any sutures or anything that will need to be removed. Just monitor the site for any new or worsening pain, swelling. Continue to take Brilinta (ticagrelor) 90 mg by mouth twice daily as prescribed for 30 more days. Continue to take aspirin 81 mg daily and atorvastatin 80 mg daily as prescribed. Continue to hold Plavix while taking the Brilinta. You may shower tomorrow. It is okay for soap and water to rinse over the right groin access site, pat to dry. Do not submerge the access site in water such as to take a bath for 3 weeks. Do not lift greater than 20 pounds for 3 weeks. Return to the office for your postoperative visit in 3 weeks as scheduled on 10/06/2023. If the appointment date or time needs to be changed or you have any other questions or concerns please contact the office at [phone]. Discharge Orders/Prescriptions Prescriptions: New oxycodone 5 mg Tablet 5 mg PO Q8H PRN PRN (Reason: Pain Score 4-10) 3 Days Qty: 9 0RF Continued fluticasone propionate [Flonase Allergy Relief] 50 mcg/actuation spray,suspension 2 spray INTRANASAL DAILY PRN PRN (Reason: Sinus Congestion) magnesium hydroxide [Milk of Magnesia] 400 mg/5 mL suspension 30 ml PO DAILY PRN (Reason: Constipation) trazodone 50 mg tablet 50 mg PO QHS metoprolol succinate 50 mg tablet extended release 24 hr 50 mg PO DAILY loratadine 10 mg tablet 10 mg PO DAILY escitalopram oxalate 5 mg tablet 5 mg PO DAILY isosorbide mononitrate 30 mg tablet extended release 24 hr 30 mg PO DAILY Qty: 30 11RF gabapentin 300 mg capsule 300 mg PO QHS insulin lispro 100 unit/mL insulin pen 15 unit subcut TID Rx Instructions: with meals duloxetine 60 MG capsule,delayed release(DR/EC) 60 mg PO QHS bupropion HCl 150 MG tablet sustained-release 12 hr 150 mg PO BID Patient Comments: depression levothyroxine 75 MCG tablet 225 mcg PO DAILY@0600 Patient Comments: thyroid ergocalciferol (vitamin D2) [Vitamin D2] 1,250 mcg (50,000 unit) capsule 50,000 unit PO TH Rx Instructions: albuterol sulfate [ProAir HFA] 90 mcg/actuation HFA aerosol inhaler 2 inh inhalation Q4H PRN (Reason: shortness of breath or wheezing) Qty: 6.7 0RF atorvastatin 80 mg tablet 80 mg PO QHS aspirin 81 mg tablet,chewable 81 mg PO BREAKFAST acetaminophen [Tylenol] 325 mg Tablet 650 mg PO Q6H PRN PRN (Reason: Pain 1-10 Or Fever>100.7) Qty: 30 0RF bisacodyl 10 mg Suppository 10 mg DE DAILY PRN (Reason: Constipation) folic acid 1 mg Tablet 1 mg PO DAILY oxybutynin chloride 5 mg Tablet Extended Release 24hr 5 mg PO QHS cyanocobalamin (vitamin B-12) [Vitamin B-12] 500 mcg Tablet 500 mcg PO DAILY ascorbic acid (vitamin C) [Vitamin C] 500 mg Tablet 500 mg PO DAILY ropinirole 0.25 mg Tablet 0.25 mg PO BID lisinopril 10 mg Tablet 10 mg PO DAILY Hold Instructions: Resume on 12/07/22. multivitamin,tx-minerals Tablet 1 tab PO DAILY insulin glargine [Lantus Solostar U-100 Insulin] 100 unit/mL (3 mL) insulin pen 60 unit SUBCUT BID pantoprazole 40 mg tablet,delayed release (DR/EC) 40 mg PO DAILY Trulicity 1.5 mg/0.5 mL pen injector 1.5 mg SUBCUT QWEEK Rx Instructions: 0.5 dose Brilinta 90 mg tablet 90 mg PO BID Held clopidogrel 75 mg tablet 75 mg PO QHS Hold Instructions: Resume on 10/17/23. May restart on 10/17/2023 once Brilinta has been discontinued. Referrals / Follow Up: Domo Blake MD [Primary Care Provider] - Disposition Disposition (needs filled in before D/C Order can be placed): Residential Facility
--- NOTE | 2023-09-16 08:22 | TREXTCAR_ITS ---
Diet Diet Order/Speech Therapy: 09/15/23 12:19 Diet: Regular - General Is pt able to select menu?: Yes Routine Orders/Code Status Code Status: Full Code Wound(s) Right Groin: Wound Type: Surgical Incision Problem/Diagnosis (1) Carotid stenosis, right: Status: Chronic Code(s): I65.21 - Occlusion and stenosis of right carotid artery Plan: Patient is status post transfemoral right carotid artery stenting performed yesterday. He has remained hemodynamically and neurologically stable overnight. This morning, he has no specific complaints. He denies any pain at the access site. On exam, no signs concerning for bleeding, hematoma, or infection at the access site. He is voiding without difficulty, tolerating a normal diet. Patient resides at [facility], the [place]. I have consulted case management to coordinate his return there upon discharge. He will continue with aspirin, statin, and Brilinta. Planning for discharge later this morning as long as everything is able to be coordinated with SNF. Comment: CTA- images reviewed, 74% right ICA stenosis, moderate calcification, Type 1 arch Allergies/Procedures Done in Hospital Allergies No Known Allergies Allergy (Verified 07/26/23 13:09) Type of Care/Length of Stay Estimated LOS: More Than 30 Days Type of Care Needed: Skilled Rehab Potential: Fair Prognosis: Fair Additional Orders/Day of Discharge Day of Discharge: 09/16/23 Follow Up Care Please Follow Up With: Mehdi Shukla MD When: 10/06/2023 Discharge Plan Admission Admit Date/Time: 09/15/23 10:04 Primary Reason for Your Visit: Right transfemoral carotid artery stent Attending Provider: Mehdi Shukla Primary Care Provider: Domo Blake Instructions Additional Instructions / Restrictions: The right groin access site does not have any sutures or anything that will need to be removed. Just monitor the site for any new or worsening pain, swelling. Continue to take Brilinta (ticagrelor) 90 mg by mouth twice daily as prescribed for 30 more days. Continue to take aspirin 81 mg daily and atorvastatin 80 mg daily as prescribed. Continue to hold Plavix while taking the Brilinta. You may shower tomorrow. It is okay for soap and water to rinse over the right groin access site, pat to dry. Do not submerge the access site in water such as to take a bath for 3 weeks. Do not lift greater than 20 pounds for 3 weeks. Return to the office for your postoperative visit in 3 weeks as scheduled on 10/06/2023. If the appointment date or time needs to be changed or you have any other questions or concerns please contact the office at [phone]. Discharge Orders/Prescriptions Prescriptions: New oxycodone 5 mg Tablet 5 mg PO Q8H PRN PRN (Reason: Pain Score 4-10) 3 Days Qty: 9 0RF Continued fluticasone propionate [Flonase Allergy Relief] 50 mcg/actuation spray,suspension 2 spray INTRANASAL DAILY PRN PRN (Reason: Sinus Congestion) magnesium hydroxide [Milk of Magnesia] 400 mg/5 mL suspension 30 ml PO DAILY PRN (Reason: Constipation) trazodone 50 mg tablet 50 mg PO QHS metoprolol succinate 50 mg tablet extended release 24 hr 50 mg PO DAILY loratadine 10 mg tablet 10 mg PO DAILY escitalopram oxalate 5 mg tablet 5 mg PO DAILY isosorbide mononitrate 30 mg tablet extended release 24 hr 30 mg PO DAILY Qty: 30 11RF gabapentin 300 mg capsule 300 mg PO QHS insulin lispro 100 unit/mL insulin pen 15 unit subcut TID Rx Instructions: with meals duloxetine 60 MG capsule,delayed release(DR/EC) 60 mg PO QHS bupropion HCl 150 MG tablet sustained-release 12 hr 150 mg PO BID Patient Comments: depression levothyroxine 75 MCG tablet 225 mcg PO DAILY@0600 Patient Comments: thyroid ergocalciferol (vitamin D2) [Vitamin D2] 1,250 mcg (50,000 unit) capsule 50,000 unit PO TH Rx Instructions: albuterol sulfate [ProAir HFA] 90 mcg/actuation HFA aerosol inhaler 2 inh inhalation Q4H PRN (Reason: shortness of breath or wheezing) Qty: 6.7 0RF atorvastatin 80 mg tablet 80 mg PO QHS aspirin 81 mg tablet,chewable 81 mg PO BREAKFAST acetaminophen [Tylenol] 325 mg Tablet 650 mg PO Q6H PRN PRN (Reason: Pain 1-10 Or Fever>100.7) Qty: 30 0RF bisacodyl 10 mg Suppository 10 mg GA DAILY PRN (Reason: Constipation) folic acid 1 mg Tablet 1 mg PO DAILY oxybutynin chloride 5 mg Tablet Extended Release 24hr 5 mg PO QHS cyanocobalamin (vitamin B-12) [Vitamin B-12] 500 mcg Tablet 500 mcg PO DAILY ascorbic acid (vitamin C) [Vitamin C] 500 mg Tablet 500 mg PO DAILY ropinirole 0.25 mg Tablet 0.25 mg PO BID lisinopril 10 mg Tablet 10 mg PO DAILY Hold Instructions: Resume on 12/07/22. multivitamin,tx-minerals Tablet 1 tab PO DAILY insulin glargine [Lantus Solostar U-100 Insulin] 100 unit/mL (3 mL) insulin pen 60 unit SUBCUT BID pantoprazole 40 mg tablet,delayed release (DR/EC) 40 mg PO DAILY Trulicity 1.5 mg/0.5 mL pen injector 1.5 mg SUBCUT QWEEK Rx Instructions: 0.5 dose Brilinta 90 mg tablet 90 mg PO BID Held clopidogrel 75 mg tablet 75 mg PO QHS Hold Instructions: Resume on 10/17/23. May restart on 10/17/2023 once Brilinta has been discontinued. Referrals / Follow Up: Domo Blake MD [Primary Care Provider] - Disposition Disposition (needs filled in before D/C Order can be placed): [facility]
[2023-09-16 08:30] LABS: Bedside Glucose 119 mg/dL (74-106)
--- NOTE | 2023-09-16 09:30 | CASEMGMT ---
Patient is ready for discharge today. TANGELA notified [facility] patient will be returning today. Liset MCNEAL
--- NOTE | 2023-09-16 10:18 | CASEMGMT ---
Patient is ready for discharge back to [facility]. TANGELA called [facility] and arranged for patient to get picked up at 11:30a. SW sent orders and roller picker time to [facility] via [facility]. TANGELA notified RN on the unit. Plan: d/c back to [facility] under intermediate level of care. [facility] will transport via cot. Liset MCNEAL
[2023-09-16 11:05] LABS: ACT Activated Clotting Time 293 sec (74-137)
[2023-09-16] MEDS: Metoprolol(XL)Succ 50 MG Tablet PO (11:13)
--- NOTE | 2023-09-16 11:55 | NURSING ---
report called to ROCKY Roldan at [facility]
== END 2023-09-16 11:57 | disposition skilled nursing facility (03) | DRG 35 ==
LOC: ICU 10:44
PROVIDERS: Admitting Provider Surgery Trauma Surgery; PCP Family Medicine; Referring Provider Surgery Trauma Surgery; Visit Provider Surgery Trauma Surgery
DX: I65.21 Occlusion and stenosis of right carotid artery (principal); Z68.43 Body mass index [BMI] 50.0-59.9, adult; E11.22 Type 2 diabetes mellitus with diabetic chronic kidney disease; E11.42 Type 2 diabetes mellitus with diabetic polyneuropathy; N18.30 Chronic kidney disease, stage 3 unspecified; E66.01 Morbid (severe) obesity due to excess calories; Z79.4 Long term (current) use of insulin; Z89.432 Acquired absence of left foot; I12.9 Hypertensive chronic kidney disease with stage 1 through stage 4 chronic kidney disease, or unspecified chronic kidney disease; I25.10 Atherosclerotic heart disease of native coronary artery without angina pectoris; E78.5 Hyperlipidemia, unspecified; Z79.02 Long term (current) use of antithrombotics/antiplatelets; Z79.82 Long term (current) use of aspirin; Z79.85 Long-term (current) use of injectable non-insulin antidiabetic drugs; Z79.899 Other long term (current) drug therapy; Z86.73 Personal history of transient ischemic attack (TIA), and cerebral infarction without residual deficits; Z87.891 Personal history of nicotine dependence
CPT/HCPCS: 36415; 37215; 76937; 80048; 82962; 85025; 85027; 85347; 86850; 86900; 86901; 94002; 94003; 94668; 99152; 99153; C1760; C1769; C1884; C1894; J7040; Q9967; C1876; C1887

== ENCOUNTER → 2023-11-09 | Outpatient (CLI) | payer MEDICARE, MEDICAID, SELFPAY ==
--- NOTE | 2023-11-09 13:47 | CDU_ITS ---
Reason For Study: S/P Rt. carotid stent Rt. Velocities/BP Lt. Velocities/BP Prox CCA 63.6/12.6 cm/sec. Prox CCA 83.9/10.2 cm/sec. Mid CCA 70.2/14.5 cm/sec. Mid CCA 92.5/11.4 cm/sec. CCA dist, prox stent, 55.1/12.6 cm/sec. Dist CCA 66.7/10.2 cm/sec. Bulb, mid stent, 117/35.8 cm/sec. Prox ICA 67.9/24.9 cm/sec. Prox ICA, distal stent, 93.7/22.5 Mid ICA 54.4/12.6 cm/sec. cm/sec. Dist ICA 40.9/9 cm/sec. Mid ICA 60.5/18.8 cm/sec. Lt. ICA/CCA = 0.81. Dist ICA 54.4/22.5 cm/sec. Prox ECA 112.1/11.4 cm/sec. Rt. ICA/CCA = 1.84. Lt. Vert. 40.9/11.6 cm/sec. Prox ECA 169.7/13.8 cm/sec. Rt. Vert. 42.1/11.4 cm/sec. Right Extracranial There is intimal thickening but no significant atherosclerotic plaque noted in the right common carotid artery. There is heterogeneous, irregular atherosclerotic plaque noted in the right internal carotid artery. Stent noted in the right CCA distal to ICA prox. There is intimal thickening but no significant atherosclerotic plaque noted in the right external carotid artery. Antegrade flow is noted in the right vertebral artery. Left Extracranial There is intimal thickening but no significant atherosclerotic plaque noted in the left common carotid artery. There is heterogeneous, irregular atherosclerotic plaque noted in the left internal carotid artery. There is intimal thickening but no significant atherosclerotic plaque noted in the left external carotid artery. Antegrade flow is noted in the left vertebral artery. Procedure Carotid Duplex [id number]. This is a Carotid Duplex examination using B-mode, color flow and specral Doppler. Exam performed in department. VL/Carotid Duplex Ultrasound Interpretation Summary Mild (<50%) stenosis right extracranial internal carotid. Mild (<50%) stenosis left extracranial internal carotid. Patent and antegrade vertebrals bilaterally. Ordering Physician: Alysa Santiago Referring Physician: Domo Blake Performed By: Shi Ann RVT
--- OUTSIDE RECORDS SUMMARY | 2023-11-09 15:26 | XMS RPT_ITS | CCD ---
Author Name Unknown Address [address] [place] [address] Organization [facility] Care Team Providers Care [employer] Architect Name Role Phone Robert DACOSTA, Maico Philip Primary Care Provider [phone] Gordy Sousa MD Unavailable [phone] SignsPatricia Unavailable Gordy Sousa MD Unavailable Signs Patricia DACOSTA Unavailable Sarah Brantley APRN.CNP Primary Care Provider Unavailable Primary Care Provider UnavailTANIA Fleming Referring Unavailable ADAMA LANDAVERDE JR. Attending Unavail able Sarah Ibarra APRN, CNP Primary Care Provider EMETERIO SOTO Attending Unavailable SARAH BRANTLEY Primary Care Unavailable Allergies Allergy Classification Reported Allergen(s) Allergy Type Date of Onset Reaction(s) Facility (10 sources) Ethanol Drug Allergy 9 Intolerance [facility] Work Phone: (13 sources) Pravastatin Drug Allergy 8 Myalgia [facility] (10 sources) rosuvastatin Drug Allergy 8 Other: See Comments [facility] (10 sources) Simvastatin Drug Allergy 8 Other: See Comments [facility] (3 sources) Rosuvastatin calcium Allergy to substance 8 [facility] (3 sources) Simvastatin Propensity to adverse reactions 8 [facility] Medications Current Medications Medication Drug Class(es) Dates Sig (Normalized) Sig (Original) [id number] 200 actuat albuterol 0.09 mg/actuat metered dose inhaler (14 sources) beta2-Adrenergic Agonist Start: 06-02-2022 take 2 puff(s) by inhalation every four hours as needed albuterol 108 (90 Base) MCG/ACT inhaler Inhale 2 puffs every 4 hours as needed. 0 06/02/2022 Active Completed/Discontinued Medications Medication Drug Class(es) Dates Sig (Normalized) Sig (Original) amLODIPine 10 mg oral tablet (11 sources) Dihydropyridine Calcium [facility] [place] Start: 06-02-2022 take 1 tablet by mouth once daily amLODIPine (NORVASC) 10 mg tablet Indications: Essential hypertension Take 1 tablet by mouth once daily. 30 tablet 0 06/02/2022 Active Problems Active Problems Problem Classification Problem Date Documented Date Episodic/Chronic Anxiety disorders (11 sources) Mixed anxiety and depressive disorder; Translations: [Other specified anxiety disorders] Onset: 05-28-2009 01-29-2015 Chronic Chronic kidney disease (5 sources) Chronic kidney disease stage 3; Translations: [Stage 3 chronic kidney disease, unspecified whether stage 3a or 3b CKD (HCC)] Onset: 03-01-2023 Chronic Chronic kidney disease (2 sources) Chronic kidney disease; Translations: [Chronic kidney disease, stage 3 unspecified (HCC)] Onset: 03-01-2023 Chronic obstructive pulmonary disease and bronchiectasis (14 sources) Chronic obstructive lung disease; Translations: [Chronic obstructive pulmonary disease, unspecified] Onset: 06-04-2008 11-07-2019 Chronic Coronary atherosclerosis and other heart disease (14 sources) Chronic total occlusion of coronary artery; Translations: [Chronic total occlusion of coronary artery] Onset: 02-19-2023 Chronic Diabetes mellitus with complications (20 sources) Type 2 diabetes mellitus; Translations: [Type 2 diabetes mellitus with diabetic chronic kidney disease] Onset: 08-13-2008 11-07-2019 Chronic Diabetes mellitus without complication (3 sources) Diabetes mellitus; Translations: [Type 2 diabetes mellitus without complications] Onset: 03-01-2023 03-01-2023 Chronic Disorders of lipid metabolism (17 sources) Hyperlipidemia; Translations: [Hyperlipidemia, unspecified] Onset: 06-04-2008 10-07-2015 Chronic Esophageal disorders (10 sources) Gastroesophageal reflux disease; Translations: [Gastro-esophageal reflux disease without esophagitis] Onset: 06-04-2008 06-04-2008 Chronic Essential hypertension (11 sources) Hypertensive disorder; Translations: [Essential (primary) hypertension] Onset: 04-12-2012 04-12-2012 Chronic Hyperplasia of prostate (10 sources) Benign prostatic hyperplasia; Translations: [Benign prostatic hyperplasia without lower urinary tract symptoms] Onset: 03-28-2013 03-28-2013 Chronic Occlusion or stenosis of precerebral arteries (5 sources) Bilateral stenosis of carotid arteries; Translations: [Occlusion and stenosis of bilateral carotid arteries] Onset: 03-01-2023 Chronic Open wounds of extremities (17 sources) Amputated left lower limb below knee; Translations: [Complete traumatic amputation at level between knee and ankle, left lower leg, initial encounter] Onset: 05-21-2020 05-21-2020 Chronic Osteoarthritis (11 sources) Arthritis of knee; Translations: [Unilateral primary osteoarthritis, unspecified knee] Onset: 10-03-2013 10-03-2013 Chronic Other aftercare (2 sources) long term care phlebotomist (current) use of insulin; Translations: [long term care phlebotomist (current) use of insulin (HCC)] Onset: 03-01-2023 Episodic Other bone disease and musculoskeletal deformities (10 sources) History of amputation of left foot; Translations: [Acquired absence of left foot] Onset: 01-28-2017 11-07-2019 Chronic Other diseases of bladder and urethra (10 sources) Overactive bladder; Translations: [Overactive bladder] Onset: 08-16-2020 08-16-2020 Chronic Other hereditary and degenerative nervous system conditions (10 sources) Restless legs; Translations: [Restless legs syndrome] Onset: 03-22-2013 02-16-2020 Chronic Other lower respiratory disease (1 source) Orthopnea; Translations: [Orthopnea] Episodic Other lower respiratory disease (1 source) Dyspnea on exertion; Translations: [Other forms of dyspnea] Episodic Other non-traumatic joint disorders (10 sources) Charcot's joint of foot; Translations: [Charcot's joint, left ankle and foot] Onset: 12-03-2015 12-03-2015 Chronic Other nutritional; endocrine; and metabolic disorders (10 sources) Body mass index 40+ - severely obese; Translations: [Morbid (severe) obesity due to excess calories] Onset: 06-04-2008 01-31-2018 Chronic Other nutritional; endocrine; and metabolic disorders (2 sources) Severe obesity; Translations: [Morbid (severe) obesity due to excess calories] Chronic Other nutritional; endocrine; and metabolic disorders (3 sources) Obesity; Translations: [Obesity, unspecified] Onset: 03-01-2023 03-01-2023 Chronic Other nutritional; endocrine; and metabolic disorders (2 sources) Morbid (severe) obesity due to excess calories; Translations: [Morbid (severe) obesity due to excess calories (HCC)] Onset: 03-01-2023 Chronic Other nutritional; endocrine; and metabolic disorders (2 sources) Body mass index (BMI) 40.0-44.9, adult; Translations: [Body mass index (BMI) 40.0-44.9, adult (HCC)] Onset: 03-01-2023 Chronic Residual codes; unclassified (16 sources) Obstructive sleep apnea syndrome; Translations: [Obstructive sleep apnea (adult) (pediatric)] Onset: 06-04-2008 05-15-2020 Chronic Residual codes; unclassified (2 sources) Obstructive sleep apnea (adult) (pediatric); Translations: [Obstructive sleep apnea (adult) (pediatric)] Onset: 03-01-2023 Chronic Thyroid disorders (11 sources) Hypothyroidism; Translations: [Hypothyroidism, unspecified] Onset: 09-23-2010 09-23-2010 Chronic Thyroid disorders (3 sources) Disorder of thyroid gland; Translations: [Disorder of thyroid, unspecified] Onset: 03-01-2023 03-01-2023 Episodic Transient cerebral ischemia (7 sources) Transient cerebral ischemia; Translations: [Transient cerebral ischemic attack, unspecified] Onset: 03-01-2023 Chronic Past or Other Problems Problem Classification Problem Date Documented Da te Episodic/Chronic Other lower respiratory disease (10 sources) Disorder of lung; Translations: [Other disorders of lung] Onset: 06-04-2008 06-04-2008 Episodic Results Test Name Value Interpretation Reference Range Facil ity Vital Signs Date Time Vital Sign Value Performing Clinician Faci lity 03-01-2023 14:29-0400 Body height 180.3 cm Emeterio Soto MD Work Phone: [facility] 03-01-2023 14:29-0400 Body mass index (BMI) [Ratio] 46.03 kg/m2 Emeterio Soto MD Work Phone: [employer] 03-01-2023 14:29-0400 Body weight 149.69 kg Emeterio Soto MD Work Phone: [facility] Encounters Encounter Date Encounter Type Care Provider Facility Start: 03-15-2023 Telephone encounter Emeterio Soto MD Work Phone: [facility] Cardiology Procedures Date Procedure Procedure Detail Performing Clinician Start: 03-01-2023 Ecg routine ecg w/le ast 12 lds w/i&r Emeterio Soto MD Work Phone: Start: 02-24-2010 Colonoscopy Maico Avila MD Work Phone: Plan of Treatment Date Care Activity Detail Author Start: 11-02-2030 DTaP/Tdap/Td Vaccines (3 - Td or Tdap) DTaP/Tdap/Td Vaccines (3 - Td or Tdap) [facility] Start: 11-02-[address] [facility] Start: 11-02-2030 Urine microalbumin profile DTAP,TDAP,TD (3 - Td or Tdap) [facility] Start: 02-07-2024 PROSTATE CANCER SCREENING DISCUSSION PROSTATE CANCER SCREENING DISCUSSION [facility] Start: 07-02-2023 Influenza vaccination INFLUENZA VACCINE (Season Ended) [facility] Start: 06-07-2023 End: 06-07-2023 Patient encounter procedure 06/07/2023 Office Visit Cardiology Emeterio Soto MD [address] [place] [id number] [facility] Start: 03-03-2023 End: 03-03-2024 Comprehensive metabolic 1998 panel - Serum or Plasma Comprehensive metabolic panel Lab Routine Coronary artery disease involving iroquois coronary artery of iroquois heart without angina pectoris Dyspnea on exertion Expected: 03/03/2023 (Approximate), Expires: 03/03/2024 [facility] Immunizations Immunization Date Immunization Notes Care Provider Fa cility 11-02-2020 tetanus toxoid, redu alexandra diphtheria toxoid, and acellular pertussis vaccine, adsorbed Maico Jones MD Work Phone: [facility] 04-24-2016 pneumococcal polysaccharide vaccine, 23 valent Maico Jones MD Work Phone: [facility] 10-29-2014 tetanus toxoid, redu alexandra diphtheria toxoid, and acellular pertussis vaccine, adsorbed Maico Jones MD Work Phone: [facility] 09-12-2012 influenza virus vacc ine, unspecified formulation Maico Jones MD Work Phone: [facility] Work Phone: 08-11-2011 influenza virus vacc ine, unspecified formulation Maico Jones MD Work Phone: [facility] Work Phone: 09-23-2010 influenza virus vacc ine, unspecified formulation Maico Jones MD Work Phone: [facility] 09-04-2009 influenza virus vacc ine, unspecified formulation Maico Jones MD Work Phone: [facility] 11-21-2008 pneumococcal polysaccharide vaccine, 23 valent Maico Jones MD Work Phone: [facility] Work Phone: 08-13-2008 influenza virus vacc ine, unspecified formulation Maico Jones MD Work Phone: [facility] 06-01-2004 tetanus and diphther ia toxoids, adsorbed, preservative free, for adult use (2 Lf of tetanus toxoid and 2 Lf of diphtheria toxoid) Maico Jones MD Work Phone: [facility] Work Phone: Payers Date Payer Category Payer Medicare [id number] 2022 Medicaid [id number] 2021 Medicaid [id number] 2021 Medicare [id number] 2021 Medicare [id number] 2020 Unknown AARP AARP [id number] 2020-Present [address] [place] [address] [id number] 2020 Unknown [id number] 2012 Private Health Insurance [facility] AARP SUPPLEMENT [id number] 2012-Present [phone] [address] [place] [address] Indemnity [id number] 2012 Private Health Insurance [facility] AARP SUPPLEMENT [id number] 2012-Present [phone] [address] [place] [address] Indemnity [id number] 1955 Unknown [id number] Social History Date Type Detail Facility Start: 01-09-2011 End: 03-01-2023 Tobacco smoking status NHIS Ex-smoker [facility] End: 04-10-2010 History of tobacco use Current smoker [facility] End: 04-10-2010 History of tobacco use Cigarette Smoker [facility] Start: 02-25-2021 End: 11-20-2021 Alcohol intake Current non-drinker of alcohol (finding) [facility] Start: 03-22-2013 History SDOH Alcohol Comment Recovered alcoholic for 14 years. [facility] Start: 1955 Sex Assigned At Not on file C [facility] Start: 11-12-2021 End: 03-01-2023 Exposure to SARS-CoV-2 (event) Not sure [facility] Start: 01-09-2011 Cigarettes smoked current (pack per day) - Reported 0.5 [facility] Start: 01-09-2011 End: 03-01-2023 Tobacco use and exposure Smokeless tobacco non-user [facility] Work Phone: Tobacco smoking stat us CAIS Tobacco smoking consumption unknown [facility] Start: 03-01-2023 Alcohol intake Ex-drinker (finding) [facility] Procedure Code Equipment Code Equipment Origin al Text Equipment Identifier Dates Start: 03-07-2009 End: 11-20-2021 Clinical Notes 09-17-2020 to 03-15-2023 Telephone Encounter - Emeterio Soto MD - 03/15/2023 10:18 AM EDTTelephone Encounter - Emeterio Soto MD - 03/15/2023 10:18 AM EDTMraji Soto MD - 03/01/2023 2:20 PM EDT Note Date & Type Note Facility 03-15-2023 Telephone encounter Note Following recent office visit, I called patient's primary teacher drama Dr. Ely in [place] to discuss the case. Patient is a poor candidate for LAD revascularization. No good surgical target, and patient is high risk for CABG given obesity and comorbidities. High risk for flush ostial BLOWER INSTALLER PCI as well with severe diffuse disease in the vessel. Unlikely to provide significant revascularization with PCI, and risks are high. As such, currently planning long-term medical therapy of his underlying CAD. Labs and echo ordered, to be done in [place]. Ongoing follow-up anticipated with Dr. Ely. Can be seen here in my office on an as-needed basis if further interventional issues arise. Emeterio Soto MD [facility] 03-15-2023 Miscellaneous Notes Following recent office visit, I called patient's primary teacher drama Dr. Ely in [place] to discuss the case. Patient is a poor candidate for LAD revascularization. No good surgical target, and patient is high risk for CABG given obesity and comorbidities. High risk for flush ostial BLOWER INSTALLER PCI as well with severe diffuse disease in the vessel. Unlikely to provide significant revascularization with PCI, and risks are high. As such, currently planning long-term medical therapy of his underlying CAD. Labs and echo ordered, to be done in [place]. Ongoing follow-up anticipated with Dr. Ely. Can be seen here in my office on an as-needed basis if further interventional issues arise. Emeterio Soto MD documented in this encounter [facility] 03-01-2023 History of Presen t illness Narrative Images from the original note were not included. [facility] Cardiology Note DATE of SERVICE: 03/01/2023 DATE of : 1955 PRIMARY CARE PHYSICIAN: Sarah Brantley APRN - [facility] Chief Complaint: Chief Complaint Patient presents with Coronary Artery Disease Chest Pain Shortness of Breath History of Present Illness: Andrei Wang is a 67 y.o. male diabetic with CAD including ostial/proximal LAD BLOWER INSTALLER, severe right carotid artery stenosis with prior TIA, obesity, and PAD with prior left BKA and right toe amputation who presents today for interventional cardiology evaluation at request of Dr. Ely from [facility]. Patient currently resides in a rehab facility, and has done so since being hospitalized in June 2022 for right leg diabetic wound infection. Cardiovascular evaluation at that time included echo showing normal EF, nuclear stress test showing normal EF with moderate LAD ischemia, and significant right carotid stenosis. He was asymptomatic from a coronary standpoint at that point and remains generally asymptomatic currently as well without significant angina. He spent an extended time in a rehab facility receiving IV antibiotic therapy, but was more recently readmitted and underwent right toe amputation. Due to his prior TIA history and right carotid stenosis, vascular surgery was consulted and cardiology clearance was requested for preoperative assessment prior to carotid endarterectomy. Given his prior history and abnormal stress test from several months prior, cardiac catheterization was performed by Dr. Ely showing heavily calcified BLOWER INSTALLER of ostial/proximal LAD extending into diagonal branch with predominantly right to left collaterals from large dominant RCA supplying small diffusely diseased LAD and diagonal branches. Circumflex was patent with moderate 50% stenosis of OM1, and ramus was approximately patent but had distal chronic occlusion with faint collaterals. Prior cardiac cath report from 2005 showed all vessels were patent at that time 15 years ago. He currently remains in a rehab facility. He is able to walk short distances with his prosthesis, but he is currently in a wheelchair. He does report exertional dyspnea with getting in and out of bed or walking short distances, but he denies any clear angina. Moderate chronic edema of the right ankle, but no acute changes. No dizziness or syncope. No palpitations. No orthopnea. Patient chris on medical therapy with aspirin, Plavix, high intensity statin, diabetic medications, and antihypertensives. No beta-[place]or[place] currently noted and no antianginals. Labs from December 2022 show creatinine 1.5, mild hyperkalemia at 5.8, mild leukocytosis of 14,000, with normal hematocrit. Patient reports he had blood work performed earlier this morning at his facility. Results currently pending. Past Medical History: Past Medical History: Diagnosis Date Chronic kidney disease COPD (chronic obstructive pulmonary disease) (HCC) Diabetes mellitus (HCC) GERD (gastroesophageal reflux disease) Hyperlipidemia Obesity CECILE treated with BiPAP Thyroid condition TIA (transient ischemic attack) Past Surgical History Past Surgical History: Procedure Laterality Date AMPUTATION Left below knee AMPUTATION FOOT / TOE CARDIAC CATHETERIZATION Family History No family history on file. Social History Social History Tobacco Use Smoking status: Former Types: Cigarettes Smokeless tobacco: Never Substance Use Topics Alcohol use: Not Currently Drug use: Never Allergies: Allergies Allergen Reactions Pravastatin Other reaction(s): Myalgia Significant Joint and muscle aches Rosuvastatin Other reaction(s): Other: See Comments Simvastatin Other reaction(s): Other: See Comments Mild muslce/joint aching Medications: Current Outpatient Medications: albuterol 108 (90 Base) MCG/ACT inhaler, Inhale 2 puffs every 4 hours as needed., Disp: , Rfl: ascorbic acid (Vitamin C) 500 MG tablet, 500 mg., Disp: , Rfl: atorvastatin (Lipitor) 80 MG tablet, Take 1 tablet by mouth Nightly., Disp: , Rfl: bisacodyl (Dulcolax) 10 MG suppository, 10 mg., Disp: , Rfl: buPROPion SR (Wellbutrin SR) 150 MG 12 hr tablet, Take 150 mg by mouth in the morning and 150 mg in the evening., Disp: , Rfl: clopidogrel (Plavix) 75 MG tablet, Take 75 mg by mouth in the morning., Disp: , Rfl: cyanocobalamin (Vitamin B-12) 500 MCG tablet, vitamin b12 0.5 mg oral tablet (1 source) Vitamin B12 Start: 11-30-2022, Disp: , Rfl: dulaglutide (Trulicity) 1.5 MG/0.5ML solution pen-injector, Inject 1.5 mg under the skin once a week., Disp: , Rfl: DULoxetine (Cymbalta) [address] capsule, Take 60 mg by mouth in the morning., Disp: , Rfl: ergocalciferol (Vitamin D-2) 1.25 MG (20048 UT) capsule, ergocalciferol 1.25 mg oral capsule (6 sources) Provitamin D2 Compound Start: 06-09-2022, Disp: , Rfl: fluticasone (Flonase) 50 MCG/ACT nasal spray, 2 sprays in the morning., Disp: , Rfl: folic acid (Folvite) 1 MG tablet, Take 1 mg by mouth in the morning., Disp: , Rfl: insulin glargine (Lantus SoloStar) 100 UNIT/ML pen, Inject 60 Units under the skin in the morning and 60 Units in the evening., Disp: , Rfl: levothyroxine (Synthroid, Levoxyl) 75 MCG tablet, Take 225 mcg by mouth in the morning., Disp: , Rfl: lisinopril 10 MG tablet, Take 10 mg by mouth in the morning., Disp: , Rfl: oxybutynin XL (Ditropan-XL) 5 MG 24 hr tablet, Take 1 tablet by mouth Nightly., Disp: , Rfl: pantoprazole (ProtoNix) 40 MG EC tablet, Take 40 mg by mouth in the morning., Disp: , Rfl: potassium chloride (Klor-Con) 20 MEQ packet, potassium chloride 20 meq powder for oral solution (1 source) Start: 11-30-2022, Disp: , Rfl: rOPINIRole (Requip) 0.25 MG tablet, Take 0.25 mg by mouth in the morning and 0.25 mg in the evening., Disp: , Rfl: Aspirin Low Dose 81 MG EC tablet, , Disp: , Rfl: metoprolol succinate XL (Toprol-XL) 50 MG 24 hr tablet, Take 1 tablet (50 mg) by mouth daily. Do not crush or chew., Disp: 30 tablet, Rfl: 11 Multiple Vitamin (High Potency Multivitamin) tablet, , Disp: , Rfl: NovoLOG FLEXPEN 100 UNIT/ML pen, , Disp: , Rfl: traZODone (Desyrel) 50 MG tablet, , Disp: , Rfl: Review of Systems: Review of Systems Constitutional: Positive for fatigue. Negative for activity change, chills, diaphoresis and fever. HENT: Negative for nosebleeds and trouble swallowing. Eyes: Negative for discharge and visual disturbance. Respiratory: Positive for shortness of breath. Negative for apnea, cough, chest tightness and wheezing. Cardiovascular: Positive for chest pain. Negative for palpitations and leg swelling. Gastrointestinal: Negative for abdominal distention, abdominal pain, blood in stool, diarrhea, nausea and vomiting. Endocrine: Negative for cold intolerance and heat intolerance. Genitourinary: Negative for hematuria. Musculoskeletal: Negative for gait problem and myalgias. Skin: Negative for color change and rash. Neurological: Negative for dizziness, seizures, syncope, facial asymmetry, speech difficulty, weakness, light-headedness, numbness and headaches. Hematological: Does not bruise/bleed easily. Psychiatric/Behavioral: Negative for dysphoric mood. Physical Examination: Vitals: Vitals: 03/01/23 1429 BP: 110/70 BP Location: Left arm Patient Position: Sitting BP Cuff Size: Adult Pulse: 76 SpO2: 99% Weight: (!) 330 lb (150 kg) Height: 5' 11 (1.803 m) Body mass index is 46.03 kg/m . Physical Exam Constitutional: General: He is not in acute distress. Appearance: He is obese. He is not toxic-appearing. Comments: In wheelchair HENT: Head: Normocephalic and atraumatic. Eyes: General: No scleral icterus. Extraocular Movements: Extraocular movements intact. Pupils: Pupils are equal, round, and reactive to light. Neck: Vascular: No carotid bruit. Cardiovascular: Rate and Rhythm: Normal rate and regular rhythm. Pulses: Normal pulses. Heart sounds: Normal heart sounds. No murmur heard. No friction rub. No gallop. Pulmonary: Effort: Pulmonary effort is normal. No respiratory distress. Breath sounds: Normal breath sounds. No wheezing, rhonchi or rales. Abdominal: General: Bowel sounds are normal. There is no distension. Palpations: Abdomen is soft. Tenderness: There is no abdominal tenderness. Musculoskeletal: Right lower leg: No edema. Left lower leg: No edema. Comments: Left BKA with prosthesis present. Right great toe amputation. Lymphadenopathy: Cervical: No cervical adenopathy. Skin: General: Skin is warm and dry. Capillary Refill: Capillary refill takes less than 2 seconds. Findings: No bruising or lesion. Neurological: General: No focal deficit present. Mental Status: He is alert and oriented to person, place, and time. Motor: No weakness. Psychiatric: Mood and Affect: Mood normal. Laboratory Tests: Lab Results Component Value Date WBC 14.7 (H) 01/01/2023 HGB 14.6 01/01/2023 HCT 47.1 01/01/2023 MCV 90.0 01/01/2023 PLT 343 01/01/2023 Lab Results Component Value Date NA 136 01/01/2023 K 5.8 (H) 01/01/2023 CL 104 01/01/2023 CO2 21 (L) 01/01/2023 BUN 32 (H) 01/01/2023 CREATININE 1.54 (H) 01/01/2023 GLUCOSE 184 (H) 01/01/2023 CALCIUM 9.9 01/01/2023 Lab Results Component Value Date CREATININE 1.54 (H) 01/01/2023 Cardiac Tests: ECG 03/01/23 personally reviewed and shows: Sinus rhythm at 76 bpm with first-degree block. No ischemic changes or prior infarct Last Cardiac Cath: 02/09/2023 [facility] [facility] -Absent left main with separate ostia of circumflex/ramus and LAD from left coronary cusp. -Heavily calcified ostial/proximal LAD 100% BLOWER INSTALLER. Zkfcr-[id number]-uzui collaterals form large RCA to LAD and Diag1; some lheb-sl-fnfk collaterals from Lcx to Diag1 -Patent circumflex/OM1 with 50 to 60% stenosis of OM1. Patent proximal to mid ramus with distal 100% BLOWER INSTALLER. Faint left-sided collaterals to distal ramus. -Large dominant RCA with mild diffuse disease supplying large PDA and PLV branches. Collaterals from PDA and PLV supply LAD/D1 territory. Distal LAD/Diag appears small caliber with diffuse disease Cardiac cath films personally reviewed in PACS. Long heavily calcified ostial/proximal LAD BLOWER INSTALLER extending into bifurcation with D1. Distal vessel supplied by collaterals but demonstrates at least moderate diffuse disease. Poor target for CABG and patient is very poor candidate for CABG given comorbidities. LAD itself appears to be poor target for BLOWER INSTALLER PCI with aorto-ostial flush occlusion and diffuse heavy calcification. Although LAD ischemia noted by nuclear stress test, patient has right to left collaterals from a robust RCA and he remains asymptomatic without angina. Moderate disease of circumflex noted which did not appear to be flow-limiting. Last Pharmacologic Nuclear Stress Test: 06/11/2022 [facility] Moderate size moderate intensity area of LAD ischemia involving mid and distal anterior wall extending to the apex. Normal perfusion in remaining segments. Normal LV systolic function with EF greater than 70%. Last Echo: 06/09/2022 [facility] -Normal LV size and systolic function. EF 55%. Moderate LVH. Indeterminate diastolic function. -Normal RV size and systolic function -Mild left atrial enlargement -Valves not well visualized, but no gross stenosis or insufficiency. No pericardial effusion. Carotid US: 06/11/2022 [facility] -Greater than 70% stenosis of right internal carotid artery -Less than 50% stenosis of left internal carotid artery -Patent vertebral arteries with antegrade flow bilaterally. Assessment and Plan: 1. Coronary artery disease involving iroquois coronary artery of iroquois heart without angina pectoris -Cardiac cath films reviewed in detail and discussed with interventional colleagues. LAD remains a poor target for BLOWER INSTALLER PCI at this point given flush aorta ostial occlusion, and long area of heavy calcification through the BLOWER INSTALLER which extends into the diagonal bifurcation. Reasonable collaterals present. Patient asymptomatic without angina. Patient not a candidate for CABG given comorbidities. Chronic kidney disease also elevates risk for potential surgery or complex PCI. Normal EF noted by echo and stress test last year. -Recommend ongoing medical management of CAD at this point. Continue aspirin, Plavix, statin. Add beta-florida therapy. -Review outpatient labs from facility from earlier today. Would like to see lipid panel, HbA1c, BNP, and CMP. -Reassess LVEF with echo - ECG 12 lead - CLINIC PERFORMED - metoprolol succinate XL (Toprol-XL) 50 MG 24 hr tablet; Take 1 tablet (50 mg) by mouth daily. Do not crush or chew., Starting Wed03/01/2023, Until Wed02/29/2024, No Print - Transthoracic echocardiogram (TTE) complete with contrast, bubble, strain, and 3D PRN - perflutren lipid microspheres (Definity) injection 1.65 mg; 1.65 mg, IntraVENous, IMG once PRN, other, Suboptimal echo image, Starting on Wed03/01/23 at 1526, For 1 dose, CV Procedural MedicationsAdminister up to 1.65 mg via slow IVP for suboptimal echocardiogram enhancement. May administer a calculated dose or diluted 8.5 mL of 0.9% sodium chloride for a total volume of 10 mL. May administer as divided doses to reach optimal image enhancement 2. Coronary artery chronic total occlusion -Long heavily calcified aorta ostial BLOWER INSTALLER of the LAD extending to diagonal. Collaterals present. No angina. Continue medical management 3. Mixed hyperlipidemia -Continue high intensity statin therapy. Review lipid levels 4. Type 2 diabetes mellitus with other circulatory complication, with long-term current use of insulin ([facility]) -Continue current medical therapy. Review hemoglobin A1c. Escalate therapy if needed. 5. Class 3 severe obesity due to excess calories with serious comorbidity and body mass index (BMI) of 40.0 to 44.9 in adult ([facility]) -Dietary modification with goal of weight loss. Exercise limited due to amputations 6. CECILE treated with BiPAP -Long-term BiPAP therapy 7. TIA (transient ischemic attack) -Bilateral carotid stenosis noted, right greater than left. Carotid endarterectomy being considered with Dr. Shukla. -Given patient's coronary disease and comorbidities, patient considered elevated risk from cardiovascular standpoint for carotid endarterectomy. However no high risk cardiac features present. Specifically, no unstable angina, unstable cardiac arrhythmias, or decompensated heart failure. Planning to obtain updated echo, but no plans for coronary revascularization at this point given complexities noted above. Recommend ongoing medical therapy. Patient seems reasonably optimized 8. Stage 3 chronic kidney disease, unspecified whether stage 3a or 3b CKD ([facility]) -Chronic follow-up. Avoid NSAIDs and nephrotoxins 9. Below-knee amputation (HCC) -Chronic Follow Up: Patient to follow-up in 2-3 months unless new cardiovascular issues arise. Please call with any questions. Emeterio Soto MD, [facility], [facility] Interventional Cardiology documented in this encounter [facility] 03-01-2023 History of Presen t illness Narrative Images from the original note were not included. [facility] Cardiology Note DATE of SERVICE: 03/01/2023 DATE of : 1955 PRIMARY CARE PHYSICIAN: Sarah Brantley APRN - BOXING INSPECTOR Chief Complaint: Chief Complaint Patient presents with Coronary Artery Disease Chest Pain Shortness of Breath History of Present Illness: Andrei Wang is a 67 y.o. male diabetic with CAD including ostial/proximal LAD BLOWER INSTALLER, severe right carotid artery stenosis with prior TIA, obesity, and PAD with prior left BKA and right toe amputation who presents today for interventional cardiology evaluation at request of Dr. Ely from [facility]. Patient currently resides in a rehab facility, and has done so since being hospitalized in June 2022 for right leg diabetic wound infection. Cardiovascular evaluation at that time included echo showing normal EF, nuclear stress test showing normal EF with moderate LAD ischemia, and significant right carotid stenosis. He was asymptomatic from a coronary standpoint at that point and remains generally asymptomatic currently as well without significant angina. He spent an extended time in a rehab facility receiving IV antibiotic therapy, but was more recently readmitted and underwent right toe amputation. Due to his prior TIA history and right carotid stenosis, vascular surgery was consulted and cardiology clearance was requested for preoperative assessment prior to carotid endarterectomy. Given his prior history and abnormal stress test from several months prior, cardiac catheterization was performed by Dr. Ely showing heavily calcified BLOWER INSTALLER of ostial/proximal LAD extending into diagonal branch with predominantly right to left collaterals from large dominant RCA supplying small diffusely diseased LAD and diagonal branches. Circumflex was patent with moderate 50% stenosis of OM1, and ramus was approximately patent but had distal chronic occlusion with faint collaterals. Prior cardiac cath report from 2005 showed all vessels were patent at that time 15 years ago. He currently remains in a rehab facility. He is able to walk short distances with his prosthesis, but he is currently in a wheelchair. He does report exertional dyspnea with getting in and out of bed or walking short distances, but he denies any clear angina. Moderate chronic edema of the right ankle, but no acute changes. No dizziness or syncope. No palpitations. No orthopnea. Patient chris on medical therapy with aspirin, Plavix, high intensity statin, diabetic medications, and antihypertensives. No beta-florida currently noted and no antianginals. Labs from December 2022 show creatinine 1.5, mild hyperkalemia at 5.8, mild leukocytosis of 14,000, with normal hematocrit. Patient reports he had blood work performed earlier this morning at his facility. Results currently pending. Past Medical History: Past Medical History: Diagnosis Date Chronic kidney disease COPD (chronic obstructive pulmonary disease) (HCC) Diabetes mellitus (HCC) GERD (gastroesophageal reflux disease) Hyperlipidemia Obesity CECILE treated with BiPAP Thyroid condition TIA (transient ischemic attack) Past Surgical History Past Surgical History: Procedure Laterality Date AMPUTATION Left below knee AMPUTATION FOOT / TOE CARDIAC CATHETERIZATION Family History No family history on file. Social History Social History Tobacco Use Smoking status: Former Types: Cigarettes Smokeless tobacco: Never Substance Use Topics Alcohol use: Not Currently Drug use: Never Allergies: Allergies Allergen Reactions Pravastatin Other reaction(s): Myalgia Significant Joint and muscle aches Rosuvastatin Other reaction(s): Other: See Comments Simvastatin Other reaction(s): Other: See Comments Mild muslce/joint aching Medications: Current Outpatient Medications: albuterol 108 (90 Base) MCG/ACT inhaler, Inhale 2 puffs every 4 hours as needed., Disp: , Rfl: ascorbic acid (Vitamin C) 500 MG tablet, 500 mg., Disp: , Rfl: atorvastatin (Lipitor) 80 MG tablet, Take 1 tablet by mouth Nightly., Disp: , Rfl: bisacodyl (Dulcolax) 10 MG suppository, 10 mg., Disp: , Rfl: buPROPion SR (Wellbutrin SR) 150 MG 12 hr tablet, Take 150 mg by mouth in the morning and 150 mg in the evening., Disp: , Rfl: clopidogrel (Plavix) 75 MG tablet, Take 75 mg by mouth in the morning., Disp: , Rfl: cyanocobalamin (Vitamin B-12) 500 MCG tablet, vitamin b12 0.5 mg oral tablet (1 source) Vitamin B12 Start: 11-30-2022, Disp: , Rfl: dulaglutide (Trulicity) 1.5 MG/0.5ML solution pen-injector, Inject 1.5 mg under the skin once a week., Disp: , Rfl: DULoxetine (Cymbalta) [address] capsule, Take 60 mg by mouth in the morning., Disp: , Rfl: ergocalciferol (Vitamin D-2) 1.25 MG (79826 UT) capsule, ergocalciferol 1.25 mg oral capsule (6 sources) Provitamin D2 Compound Start: 06-09-2022, Disp: , Rfl: fluticasone (Flonase) 50 MCG/ACT nasal spray, 2 sprays in the morning., Disp: , Rfl: folic acid (Folvite) 1 MG tablet, Take 1 mg by mouth in the morning., Disp: , Rfl: insulin glargine (Lantus SoloStar) 100 UNIT/ML pen, Inject 60 Units under the skin in the morning and 60 Units in the evening., Disp: , Rfl: levothyroxine (Synthroid, Levoxyl) 75 MCG tablet, Take 225 mcg by mouth in the morning., Disp: , Rfl: lisinopril 10 MG tablet, Take 10 mg by mouth in the morning., Disp: , Rfl: oxybutynin XL (Ditropan-XL) 5 MG 24 hr tablet, Take 1 tablet by mouth Nightly., Disp: , Rfl: pantoprazole (ProtoNix) 40 MG EC tablet, Take 40 mg by mouth in the morning., Disp: , Rfl: potassium chloride (Klor-Con) 20 MEQ packet, potassium chloride 20 meq powder for oral solution (1 source) Start: 11-30-2022, Disp: , Rfl: rOPINIRole (Requip) 0.25 MG tablet, Take 0.25 mg by mouth in the morning and 0.25 mg in the evening., Disp: , Rfl: Aspirin Low Dose 81 MG EC tablet, , Disp: , Rfl: metoprolol succinate XL (Toprol-XL) 50 MG 24 hr tablet, Take 1 tablet (50 mg) by mouth daily. Do not crush or chew., Disp: 30 tablet, Rfl: 11 Multiple Vitamin (High Potency Multivitamin) tablet, , Disp: , Rfl: NovoLOG FLEXPEN 100 UNIT/ML pen, , Disp: , Rfl: traZODone (Desyrel) 50 MG tablet, , Disp: , Rfl: Review of Systems: Review of Systems Constitutional: Positive for fatigue. Negative for activity change, chills, diaphoresis and fever. HENT: Negative for nosebleeds and trouble swallowing. Eyes: Negative for discharge and visual disturbance. Respiratory: Positive for shortness of breath. Negative for apnea, cough, chest tightness and wheezing. Cardiovascular: Positive for chest pain. Negative for palpitations and leg swelling. Gastrointestinal: Negative for abdominal distention, abdominal pain, blood in stool, diarrhea, nausea and vomiting. Endocrine: Negative for cold intolerance and heat intolerance. Genitourinary: Negative for hematuria. Musculoskeletal: Negative for gait problem and myalgias. Skin: Negative for color change and rash. Neurological: Negative for dizziness, seizures, syncope, facial asymmetry, speech difficulty, weakness, light-headedness, numbness and headaches. Hematological: Does not bruise/bleed easily. Psychiatric/Behavioral: Negative for dysphoric mood. Physical Examination: Vitals: Vitals: 03/01/23 1429 BP: 110/70 BP Location: Left arm Patient Position: Sitting BP Cuff Size: Adult Pulse: 76 SpO2: 99% Weight: (!) 330 lb (150 kg) Height: 5' 11 (1.803 m) Body mass index is 46.03 kg/m . Physical Exam Constitutional: General: He is not in acute distress. Appearance: He is obese. He is not toxic-appearing. Comments: In wheelchair HENT: Head: Normocephalic and atraumatic. Eyes: General: No scleral icterus. Extraocular Movements: Extraocular movements intact. Pupils: Pupils are equal, round, and reactive to light. Neck: Vascular: No carotid bruit. Cardiovascular: Rate and Rhythm: Normal rate and regular rhythm. Pulses: Normal pulses. Heart sounds: Normal heart sounds. No murmur heard. No friction rub. No gallop. Pulmonary: Effort: Pulmonary effort is normal. No respiratory distress. Breath sounds: Normal breath sounds. No wheezing, rhonchi or rales. Abdominal: General: Bowel sounds are normal. There is no distension. Palpations: Abdomen is soft. Tenderness: There is no abdominal tenderness. Musculoskeletal: Right lower leg: No edema. Left lower leg: No edema. Comments: Left BKA with prosthesis present. Right great toe amputation. Lymphadenopathy: Cervical: No cervical adenopathy. Skin: General: Skin is warm and dry. Capillary Refill: Capillary refill takes less than 2 seconds. Findings: No bruising or lesion. Neurological: General: No focal deficit present. Mental Status: He is alert and oriented to person, place, and time. Motor: No weakness. Psychiatric: Mood and Affect: Mood normal. Laboratory Tests: Lab Results Component Value Date WBC 14.7 (H) 01/01/2023 HGB 14.6 01/01/2023 HCT 47.1 01/01/2023 MCV 90.0 01/01/2023 PLT 343 01/01/2023 Lab Results Component Value Date NA 136 01/01/2023 K 5.8 (H) 01/01/2023 CL 104 01/01/2023 CO2 21 (L) 01/01/2023 BUN 32 (H) 01/01/2023 CREATININE 1.54 (H) 01/01/2023 GLUCOSE 184 (H) 01/01/2023 CALCIUM 9.9 01/01/2023 Lab Results Component Value Date CREATININE 1.54 (H) 01/01/2023 Labs from 03/01/23 reviewed: Sodium 135, potassium 5.7 (hemolyzed), chloride 103, bicarb 18, BUN 50, creatinine 1.7, glucose 161, calcium 9.5, WBC 13.1, hemoglobin 13.3, hematocrit 42.3, platelet 305 Labs from 02/01/2023 reviewed: Potassium 4.6, creatinine 1.6, hemoglobin A1c 8.1%. No lipids Cardiac Tests: ECG 03/01/23 personally reviewed and shows: Sinus rhythm at 76 bpm with first-degree block. No ischemic changes or prior infarct Last Cardiac Cath: 02/09/2023 [facility] -Absent left main with separate ostia of circumflex/ramus and LAD from left coronary cusp. -Heavily calcified ostial/proximal LAD 100% BLOWER INSTALLER. Gzays-iz-nkiw collaterals form large RCA to LAD and Diag1; some rufx-wr-adps collaterals from Lcx to Diag1 -Patent circumflex/OM1 with 50 to 60% stenosis of OM1. Patent proximal to mid ramus with distal 100% BLOWER INSTALLER. Faint left-sided collaterals to distal ramus. -Large dominant RCA with mild diffuse disease supplying large PDA and PLV branches. Collaterals from PDA and PLV supply LAD/D1 territory. Distal LAD/Diag appears small caliber with diffuse disease Cardiac cath films personally reviewed in PACS. Long heavily calcified ostial/proximal LAD BLOWER INSTALLER extending into bifurcation with D1. Distal vessel supplied by collaterals but demonstrates at least moderate diffuse disease. Poor target for CABG and patient is very poor candidate for CABG given comorbidities. LAD itself appears to be poor target for BLOWER INSTALLER PCI with aorto-ostial flush occlusion and diffuse heavy calcification. Although LAD ischemia noted by nuclear stress test, patient has right to left collaterals from a robust RCA and he remains asymptomatic without angina. Moderate disease of circumflex noted which did not appear to be flow-limiting. Last Pharmacologic Nuclear Stress Test: 06/11/2022 [facility] Moderate size moderate intensity area of LAD ischemia involving mid and distal anterior wall extending to the apex. Normal perfusion in remaining segments. Normal LV systolic function with EF greater than 70%. Last Echo: 06/09/2022 [facility] -Normal LV size and systolic function. EF 55%. Moderate LVH. Indeterminate diastolic function. -Normal RV size and systolic function -Mild left atrial enlargement -Valves not well visualized, but no gross stenosis or insufficiency. No pericardial effusion. Carotid US: 06/11/2022 [facility] -Greater than 70% stenosis of right internal carotid artery -Less than 50% stenosis of left internal carotid artery -Patent vertebral arteries with antegrade flow bilaterally. Assessment and Plan: 1. Coronary artery disease involving iroquois coronary artery of iroquois heart without angina pectoris -Cardiac cath films reviewed in detail and discussed with interventional colleagues. LAD remains a poor target for BLOWER INSTALLER PCI at this point given flush aorta ostial occlusion, and long area of heavy calcification through the BLOWER INSTALLER which extends into the diagonal bifurcation. Reasonable collaterals present. Patient asymptomatic without angina. Patient not a candidate for CABG given comorbidities. Chronic kidney disease also elevates risk for potential surgery or complex PCI. Normal EF noted by echo and stress test last year. -Recommend ongoing medical management of CAD at this point. Continue aspirin, Plavix, statin. Add beta-flor[place] therapy. -Review outpatient labs from facility from earlier today. Would like to see lipid panel, HbA1c, BNP, and CMP. -Reassess LVEF with echo - ECG 12 lead - CLINIC PERFORMED - metoprolol succinate XL (Toprol-XL) 50 MG 24 hr tablet; Take 1 tablet (50 mg) by mouth daily. Do not crush or chew., Starting Wed03/01/2023, Until Wed02/29/2024, No Print - Transthoracic echocardiogram (TTE) complete with contrast, bubble, strain, and 3D PRN - perflutren lipid microspheres (Definity) injection 1.65 mg; 1.65 mg, IntraVENous, IMG once PRN, other, Suboptimal echo image, Starting on Wed03/01/23 at 1526, For 1 dose, CV Procedural MedicationsAdminister up to 1.65 mg via slow IVP for suboptimal echocardiogram enhancement. May administer a calculated dose or diluted 8.5 mL of 0.9% sodium chloride for a total volume of 10 mL. May administer as divided doses to reach optimal image enhancement 2. Coronary artery chronic total occlusion -Long heavily calcified aorta ostial BLOWER INSTALLER of the LAD extending to diagonal. Collaterals present. No angina. Continue medical management 3. Mixed hyperlipidemia -Continue high intensity statin therapy. Review lipid levels 4. Type 2 diabetes mellitus with other circulatory complication, with long-term current use of insulin ([facility]) -Continue current medical therapy. Review hemoglobin A1c. Escalate therapy if needed. 5. Class 3 severe obesity due to excess calories with serious comorbidity and body mass index (BMI) of 40.0 to 44.9 in adult ([facility]) -Dietary modification with goal of weight loss. Exercise limited due to amputations 6. CECILE treated with BiPAP -Long-term BiPAP therapy 7. TIA (transient ischemic attack) -Bilateral carotid stenosis noted, right greater than left. Carotid endarterectomy being considered with Dr. Shukla. -Given patient's coronary disease and comorbidities, patient considered elevated risk from cardiovascular standpoint for carotid endarterectomy. However no high risk cardiac features present. Specifically, no unstable angina, unstable cardiac arrhythmias, or decompensated heart failure. Planning to obtain updated echo, but no plans for coronary revascularization at this point given complexities noted above. Recommend ongoing medical therapy. Patient seems reasonably optimized 8. Stage 3 chronic kidney disease, unspecified whether stage 3a or 3b CKD ([facility]) -Chronic follow-up. Avoid NSAIDs and nephrotoxins 9. Below-knee amputation ([facility]) -Chronic Follow Up: Patient to follow-up in 2-3 months unless new cardiovascular issues arise. Please call with any questions. Emeterio Soto MD, [facility] Interventional Cardiology documented in this encounter [facility] 03-01-2023 Miscellaneous Notes Addended by: EMETERIO SOTO on: 03/03/2023 09:32 AM Modules accepted: Orders documented in this encounter [facility] 03-01-2023 Note Addended by: YAQUELIN SOTO on: 03/03/2023 09:32 AM Modules accepted: Orders [facility] 02-19-2023 History of Presen t illness Narrative Visit cancelled, unathorized provider for visit. Spoke with both Shannon and Messi at pt's nursing facility ([facility]) and informed them that Dr. Landaverde is not an authorized provider under [facility], therefore visit was cancelled. I asked them to make sure to follow up with pt to let him know that Dr. Landaverde said that this is not an emergency as he has a CHRONIC blockage that won't get worse. I asked them to follow up on pt having his consult with the [facility] [place] or Arvind (as previously mentioned by pt). They stated that they would relay this to pt. documented in this encounter [facility] 06-15-2022 Miscellaneous Notes Patient no longer under my/our care. Kristina Redding called from [facility] to update you that patient was discharged from [facility] on 06/13/2022. documented in this encounter [facility] 05-18-2022 Miscellaneous Notes TC Andrei, let him know he would need VV or telephone visit. Andrei was hoping Dr. Jones would just call something in. Andrei has PA that has been coming into his home, he has a call in to the PA, will wait and see what PA says. Araceli King LPN Virtual preferred or telehealth. Pt calling and states he has an infection in his teeth and will be going to [facility]. Pt requesting ATB for this. Pt states he has bad teeth and was given medication in the past for this. Pt declines coming in for an apt due to he is disabled. He does not have an apt set up to be seen Please review and advise pt. Pharmacy updated. Unique Campos LPN documented in this encounter [facility] 05-08-2022 Miscellaneous Notes Pt Pharmacy the insurance wouldn't pay for the Albuterol Sulfate, so I switched it to the Proair which is what they filled the last time. Patient has been identified by name and date of : Yes Pharmacy phones for refill(s): Pending Prescriptions Disp Refills TRULICITY 1.5 MG/0.5 ML SUBCUTANEOUS PEN INJECTOR 4 Each 5 Sig: Inject 1.5 mg subcutaneously one time a week. Inject once per week. Discard Pen After [facility]IA [place]: No FLUTICASONE PROPIONATE 50 MCG/ACTUATION NASAL SPRAY,SUSPENSION 1 Each 5 Sig: Use 2 Sprays in each nostril once daily. Rinse mouth after use. [facility] [place]: No DULOXETINE 30 MG CAPSULE,DELAYED RELEASE 30 capsule 5 Sig: Take 1 capsule by mouth once daily. With 60 mg capsule for total of 90 mg daily. [facility] [place]: No DULOXETINE 60 MG CAPSULE,DELAYED RELEASE 30 capsule 5 Sig: Take 1 capsule by mouth once daily. [facility] [place]: No AMLODIPINE 10 MG TABLET 30 tablet 5 Sig: Take 1 tablet by mouth once daily. MARIA DEL ROSARIO: No ALBUTEROL SULFATE HFA 90 MCG/ACTUATION AEROSOL INHALER Sig: Inhale 2 Puffs as instructed every 6 hours as needed for wheezing/shortness of breath. INHALATIONAL SPACING DEVICE 1 Each 0 Si Device one time only for 1 dose. Date of last office visit in primary care: 12/25/21 Last 2 Encounter Wt Readings: Date: Wt: Future visit: none 11/20/2021 175.5 kg (387 lb) 02/25/2021 192.8 kg (425 lb) Previous labs/tests for medication: Diabetes: Hemoglobin A1C (%) Date Value 11/20/2021 6.1 02/25/2021 9.0 Hemoglobin A1C (POCT) (%) Date Value 11/20/2021 6.0 Blood Pressure: BUN (mg/dL) Date Value 02/25/2021 18 Sodium (mmol/L) Date Value 02/25/2021 138 Last 1 Encounter BP Readings: Date: BP: 11/20/2021 128/76 Liver Function: ALT (U/L) Date Value 02/25/2021 40 02/25/2021 37 AST (U/L) Date Value 02/25/2021 38 02/25/2021 35 Please advise. Thank you. Echo Jimenez RN documented in this encounter [facility] 05-08-2022 Miscellaneous Notes [facility] pharmacy calling patient insurance is wanting the Novolog insulin changed to Humalog insulin. Asking for new rx please. Not sure which Humalog to pend. Please advise documented in this encounter [facility] 04-03-2022 Miscellaneous Notes Faxed as requested. Gael Montano Ma Pt. would like an order for a Incentive Spirometer faxed to [facility]. Kathi Luis LPN documented in this encounter [facility] 03-24-2022 Miscellaneous Notes Patient has been identified by name and date of : Yes Pharmacy phones for refill(s): Pending Prescriptions Disp Refills OMEPRAZOLE 40 MG CAPSULE,DELAYED RELEASE 180 capsule 1 Sig: Take 1 capsule by mouth twice daily MARIA DEL ROSARIO: No Date of last office visit in primary care: 12/25/2021, no future appt scheduled Last 2 Encounter Wt Readings: Date: Wt: 11/20/2021 175.5 kg (387 lb) 02/25/2021 192.8 kg (425 lb) Previous labs/tests for medication: Not applicable Please advise. Thank you. Tosha Moreau LPN documented in this encounter [facility] 03-06-2022 Miscellaneous Notes Noted. Patient called in, wanted Dr. Elder to be aware that the Visiting Home Physician prescribed an iron supplement and Vitamin D supplement. Would like his record updated. Patient phoned to let pcp know, he has a visiting physician that is covered by Medicaid. The doctor visited him on , did a CXR and bloodwork, then called him Wed to let him know he has pneumonia and prescribed AB. Reports he has cough, SOB on exertion, weakness. Drinking plenty of fluids. He will call visiting physician tomorrow if not feeling better. Reports he just wanted to keep Dr. Jones updated, in case he needs to schedule appt with you. documented in this encounter [facility] 02-23-2022 Note HNO ID: [id number] Author: Rosa Crawley MA Service: ? Author Type: Network Support Analyst Type: Progress Notes Filed: 02/23/2022 4:28 PM Note Text: POPULATION HEALTH NAVIGATION OUTREACH Action/February 23, 2022 HCC Gaps E66.01 - Morbid (severe) obesity due to excess calories Z89.432 - History of transmetatarsal amputation of left foot (HCC) - [id number] Last Billed 11/17/2019 REDD with Maico Jones MD was 2.204.2021 Return in about 2 months (around 02/22/2022), due: Colorectal Cancer Screening Outcome: Spoke with patient in regards to scheduling his follow up appointment with Maico Jones MD Patient advises that he just found out about a program through Medicaid where your PCP will come to your home every six weeks, do all blood work , BP , EKG etc. He is going to contact this program to get more information and see if he would qualify. He will let Dr Jones know if he decides to do this or he will call back to schedule his follow up. Patient states he just would like to look into this option. thank you Pt identified by name and : YES, via phone Outreach Outcome/Action Spoke to patient or caregiver: Patient declined Reason for Outreach HCC or suspected condition Payer: Payor: [employer] / Plan: [employer] / Product Type: Medicare / Care Gap Reviewed:: Follow-up appointment Colorectal Cancer Screening Reminder: Reminder note to check Health Maintenance for items below Health Maintenance items due: COVID-19 VACCINE(1) Never done DILATED RETINAL EXAM due on 11/23/2019 COLORECTAL CANCER SCREENING due on 02/25/2020 LDL CHOLESTEROL due on 02/25/2022 Message Sent to Practice: No Navigation Signature: Rosa Crawley, Population Health Navigator February 23, 2022 4:15 PM [facility] 02-23-2022 History of Presen t illness Narrative POPULATION HEALTH NAVIGATION OUTREACH Action/February 23, 2022 HCC Gaps E66.01 - Morbid (severe) obesity due to excess calories Z89.432 - History of transmetatarsal amputation of left foot (HCC) - [id number] Last Billed 11/17/2019 REDD with Maico Jones MD was 2.204.2021 Return in about 2 months (around 02/22/2022), due: Colorectal Cancer Screening Outcome: Spoke with patient in regards to scheduling his follow up appointment with Maico Jones MD Patient advises that he just found out about a program through Medicaid where your PCP will come to your home every six weeks, do all blood work , BP , EKG etc. He is going to contact this program to get more information and see if he would qualify. He will let Dr Jones know if he decides to do this or he will call back to schedule his follow up. Patient states he just would like to look into this option. thank you Pt identified by name and : YES, via phone Outreach Outcome/Action Spoke to patient or caregiver: Patient declined Reason for Outreach HCC or suspected condition Payer: Payor: [facility]IC[facility] / Plan: [facility] / Product Type: Medicare / Care Gap Reviewed:: Follow-up appointment Colorectal Cancer Screening Reminder: Reminder note to check Health Maintenance for items below Health Maintenance items due: COVID-19 VACCINE(1) Never done DILATED RETINAL EXAM due on 11/23/2019 COLORECTAL CANCER SCREENING due on 02/25/2020 LDL CHOLESTEROL due on 02/25/2022 Message Sent to Practice: No Navigation Signature: Rosa Crawley Population Health Navigator February 23, 2022 4:15 PM documented in this encounter [facility] 02-23-2022 Note Patient Outreach (NE TNAV) ANDREI WANG ([id number]) 1955 M Date Time Provider Department 02/23/22 ROSA CRAWLEY During your visit today, we recorded the following information about you: Rosa Crawley MA 02/23/2022 4:28 PM Signed POPULATION HEALTH NAVIGATION OUTREACH Action/February 23, 2022 HCC Gaps E66.01 - Morbid (severe) obesity due to excess calories Z89.432 - History of transmetatarsal amputation of left foot (HCC) - [id number] Last Billed 11/17/2019 REDD with Maico Jones MD was 2.204.2021 Return in about 2 months (around 02/22/2022), due: Colorectal Cancer Screening Outcome: Spoke with patient in regards to scheduling his follow up appointment with Maico Jones MD Patient advises that he just found out about a program through Medicaid where your PCP will come to your home every six weeks, do all blood work , BP , EKG etc. He is going to contact this program to get more information and see if he would qualify. He will let Dr Jones know if he decides to do this or he will call back to schedule his follow up. Patient states he just would like to look into this option. thank you Pt identified by name and : YES, via phone Outreach Outcome/Action Spoke to patient or caregiver: Patient declined Reason for Outreach HCC or suspected condition Payer: Payor: [employer] / Plan: [employer] / Product Type: Medicare / Care Gap Reviewed:: Follow-up appointment Colorectal Cancer Screening Reminder: Reminder note to check Health Maintenance for items below Health Maintenance items due: COVID-19 VACCINE(1) Never done DILATED RETINAL EXAM due on 11/23/2019 COLORECTAL CANCER SCREENING due on 02/25/2020 LDL CHOLESTEROL due on 02/25/2022 Message Sent to Practice: No Navigation Signature: Rosa Crawley Population Health Navigator February 23, 2022 4:15 PM Allergies As of Date: 02/23/2022 Noted Allergy Reaction ALCOHOL 11/21/2008 5 - Intolerance Comments: Hx of Alcoholism CRESTOR (ROSUVASTATIN CALCIUM) 07/01/2018 14 - Other: See Comments Comments: Mild joint and muscle aching PRAVASTATIN 07/01/2018 17 - Myalgia Comments: Significant Joint and muscle aches SIMVASTATIN 07/01/2018 14 - Other: See Comments Comments: Mild muslce/joint aching Date Reviewed: 11/20/2021 Reviewed by: Araceli King LPN - Fully Assessed Reason for Visit: Population Health Navigation Outreach [3910] Cmt: HCC Gaps Prescriptions as of 02/23/2022 - atorvastatin (LIPITOR) 20 mg tablet Take 1 tablet by mouth once daily. - levothyroxine (SYNTHROID) 75 mcg tablet Take 3 tablets by mouth once daily. Take on empty stomach. For Thyroid - amLODIPine (NORVASC) 10 mg tablet Take 1 tablet by mouth once daily. - tolterodine (DETROL) 2 mg tablet Take 1 tablet by mouth every morning. - rOPINIRole (REQUIP) 0.25 mg tablet Take 1 tablet by mouth twice daily. - DULoxetine (CYMBALTA) 60 mg capsule Take 1 capsule by mouth once daily. - DULoxetine (CYMBALTA) 30 mg capsule Take 1 capsule by mouth once daily. With 60 mg capsule for total of 90 mg daily. - buPROPion SR (ZYBAN SR; WELLBUTRIN SR) 150 mg 12 hr tablet Take 1 tablet by mouth twice daily. - dulaglutide (TRULICITY) 1.5 mg/0.5 mL pen injector Inject 1.5 mg subcutaneously one time a week. Inject once per week. Discard Pen After - insulin glargine (LANTUS SOLOSTAR U-100 INSULIN) 100 unit/mL (3 mL) Inject 100 Units subcutaneously twice daily at 6AM and 9PM. - albuterol sulfate 90 mcg/actuation breath activated powder inhaler Inhale 2 Puffs as instructed every 6 hours as needed (wheezing, dyspnea). - blood sugar diagnostic (BLOOD GLUCOSE TEST) test strip Test blood sugar(s) 4to 5 times daily. Dx: Type 2 DM - Uncontrolled E11.65 Insulin: Yes - fluticasone (FLONASE) 50 mcg/actuation nasal spray Use 2 Sprays in each nostril once daily. Rinse mouth after use. - omeprazole (PRILOSEC) 40 mg capsule Take 1 capsule by mouth twice daily - insulin needles, DISPOSABLE, 31 gauge x 5/16 1 Each twice daily. use the following Unigard 8 mm 31 gauge pen tips. - insulin aspart U-100 (NOVOLOG FLEXPEN U-100 INSULIN) 100 unit/mL (3 mL) Inject 60 Units subcutaneously three times daily with meals. - insulin syringe,safetyneedle 1 mL 30 gauge x 5/16 syrg Use one syringe for each dose, 5 times a day - metoprolol succinate ER (TOPROL XL) 25 mg 24 hr tablet Take 1 tablet by mouth once daily. - COMPOUNDED PRESCRIPTION BiPAP supplies: Mask, hose, reservoirs. Dx: G47.33. - Insulin Syringe-Needle U-100 1 mL 29 gauge x 1/2 syrg Use one syringe for each dose. 3x per day - BIPAP - lancets(FREESTYLE LANCETS) Test blood sugar twice daily. 250.02, non insulin dep Problem List As Of Date 02/23/2022 Noted Resolved Obesity, Class III, BMI 40-49.9 (morbid obesity*06/04/2008 ESOPHAGEAL REFLUX [K21. (more content not included)... [facility] 02-05-2022 Miscellaneous Notes pcp completed form. Office note from 11/20/21 printed per pcp. All faxed to number given. Sheila Agarwal- [employer] [place]- asking if pcp is going to fill out the form for the hospital bed to send to [place]? Asking if patient does need a F2F appt for this since he was last seen in Nov, and had distance appt in Dec? States patient needs the new hospital bed thea. Please phone Sheila at [phone]. Faxed ov notes to Sheila at fax # [phone], per Sheila request. Esha from [email or web address] calling asking if Dr Jones received form rx for bariatric hospital bed was faxed several times, today was latest time. Aware form given to PCP and patient last in office 11/20/2021. Had telephone visit 12/25/2021. Patient may need to have appt with PCP and has transportation issue. Esha is calling Sheila at [facility] and letting her know this information and that Dr Jones is his PCP not Dr Kothari. Please fax order Senia Dominguez APRN.CNP Sheila with [facility] calls to confirm provider received a fax request from [employer] for a bariatric hospital bed. Asked case resolution specialist about the order sent to [facility] in December and she said patient didn't receive bed from them and he is no longer using [facility] as a supplier. Judy Poe RN documented in this encounter [facility] 12-25-2021 Note HNO ID: [id number] Author: Maico Jones MD Service: ? Author Type: Physician Type: Progress Notes Filed: 12/25/2021 3:30 PM Note Text: DISTANCE HEALTH VISIT Andrei Wang's identity was confirmed. The limitations of telemedicine were reviewed, and verbal consent was obtained for this encounter. This encounter is not related to previous similar encounter within the past 7 days. No face to face visit is planned in the next day in connection to this encounter. This telemedicine encounter was accomplished via PHONE. He called concerned about abdominal pain and pancreas concern. See phone encounter 12/08/21. He declined an in office appointment but agreed to have lab done. Lipase was ordered. He was not able to come in again for the test. He had some sort of issue with his leg prosthesis as his excuse. However, he also indicated he can now avail of transportation thru [facility]. ACTIVE PROBLEM LIST Obesity, Class Iii, Bmi 40-49.9 (Morbid Obesity) (Hcc) Esophageal Reflux Copd (Chronic Obstructive Pulmonary Disease) (Hcc) Hyperlipidemia PULMONARY HYPERTENSION Cecile On Cpap Type 2 Diabetes Mellitus With Stage 3 Chronic Kidney Disease, With Long-Term Current Use of Insulin (Hcc) Depression With Anxiety Hypothyroid Hypertension Rls (Restless Legs Syndrome) Bph (Benign Prostatic Hyperplasia) Arthritis of Knee Type 2 Diabetes, Uncontrolled, With Neuropathy (Hcc) Charcot's Joint of Left Foot History of Transmetatarsal Amputation of Left Foot (Hcc) Below-Knee Amputation of Left Lower Extremity (Hcc) Overactive Bladder Current Outpatient Medications Medication Sig - atorvastatin (LIPITOR) 20 mg tablet Take 1 tablet by mouth once daily. - levothyroxine (SYNTHROID) 75 mcg tablet Take 3 tablets by mouth once daily. Take on empty stomach. For Thyroid - amLODIPine (NORVASC) 10 mg tablet Take 1 tablet by mouth once daily. - tolterodine (DETROL) 2 mg tablet Take 1 tablet by mouth every morning. - rOPINIRole (REQUIP) 0.25 mg tablet Take 1 tablet by mouth twice daily. - DULoxetine (CYMBALTA) 60 mg capsule Take 1 capsule by mouth once daily. - DULoxetine (CYMBALTA) 30 mg capsule Take 1 capsule by mouth once daily. With 60 mg capsule for total of 90 mg daily. - buPROPion SR (ZYBAN SR; WELLBUTRIN SR) 150 mg 12 hr tablet Take 1 tablet by mouth twice daily. - dulaglutide (TRULICITY) 1.5 mg/0.5 mL pen injector Inject 1.5 mg subcutaneously one time a week. Inject once per week. Discard Pen After - insulin glargine (LANTUS SOLOSTAR U-100 INSULIN) 100 unit/mL (3 mL) Inject 100 Units subcutaneously twice daily at 6AM and 9PM. - albuterol sulfate 90 mcg/actuation breath activated powder inhaler Inhale 2 Puffs as instructed every 6 hours as needed (wheezing, dyspnea). - blood sugar diagnostic (BLOOD GLUCOSE TEST) test strip Test blood sugar(s) 4to 5 times daily. Dx: Type 2 DM - Uncontrolled E11.65 Insulin: Yes - fluticasone (FLONASE) 50 mcg/actuation nasal spray Use 2 Sprays in each nostril once daily. Rinse mouth after use. - omeprazole (PRILOSEC) 40 mg capsule Take 1 capsule by mouth twice daily - insulin needles, DISPOSABLE, 31 gauge x 5/16 1 Each twice daily. use the following Unigard 8 mm 31 gauge pen tips. - insulin aspart U-100 (NOVOLOG FLEXPEN U-100 INSULIN) 100 unit/mL (3 mL) Inject 60 Units subcutaneously three times daily with meals. (Patient taking differently: Inject 60 Units subcutaneously three times daily with meals. Patient testing blood sugars prior to eating, injecting 20-30 units prior to meals depending on blood sugar readings. ) - insulin syringe,safetyneedle 1 mL 30 gauge x 5/16 syrg Use one syringe for each dose, 5 times a day - metoprolol succinate ER (TOPROL XL) 25 mg 24 hr tablet Take 1 tablet by mouth once daily. - COMPOUNDED PRESCRIPTION BiPAP supplies: Mask, hose, reservoirs. Dx: G47.33. - Insulin Syringe-Needle U-100 1 mL 29 gauge x 1/2 syrg Use one syringe for each dose. 3x per day - BIPAP - lancets(FREESTYLE LANCETS) Test blood sugar twice daily. 250.02, non insulin dep No current facility-administered medications for this visit. ASSESSMENT/PLAN: 1. Abdominal pain, unspecified abdominal location - ICD9: 789.00, ICD10: R10.9 (primary diagnosis) Etiology unclear 2. Obesity, Class III, BMI 40-49.9 (morbid obesity) ([facility]) - ICD9: 278.01, ICD10: E66.01 3. History of transmetatarsal amputation of left foot (HCC) - ICD9: V49.73, ICD10: Z89.432 4. Below-knee amputation of left lower extremity (HCC) - ICD9: 897.0, ICD10: S88.112A We agreed to have an in office follow up with all labs done in spring. I spent 10 minutes for these discussions. Maico Jones MD [facility] 11-20-2021 Note HNO ID: [id number] Author: Maico Jones MD Service: ? Author Type: Physician Type: Progress Notes Filed: 11/20/2021 3:21 PM Note Text: This note was created using Locu. Subjective Andrei Wang is a 65 year old male here for long overdue follow up. He had lost a lot of weight. His diabetes mellitus was much better. He self adjusted his insulins and was taking less. Hypertension was controlled. He complained of sinus drainage and sinus pain for a few months. His labs were being processed. He sees Dr. Quiles periodically for foot care. He was concerned about wide swings in his mood, and was asking about referral. Review of Systems Constitutional: Negative. Respiratory: Negative. Cardiovascular: Negative. Gastrointestinal: Negative. Neurological: Negative. Psychiatric/Behavioral: See HPI. ACTIVE PROBLEM LIST Obesity, Class Iii, Bmi 40-49.9 (Morbid Obesity) ([facility]) Esophageal Reflux Copd (Chronic Obstructive Pulmonary Disease) ([facility]) Hyperlipidemia PULMONARY HYPERTENSION Cecile On Cpap Type 2 Diabetes Mellitus With Stage 3 Chronic Kidney Disease, With Long-Term Current Use of Insulin ([facility]) Depression With Anxiety Hypothyroid Hypertension Rls (Restless Legs Syndrome) Bph (Benign Prostatic Hyperplasia) Arthritis of Knee Type 2 Diabetes, Uncontrolled, With Neuropathy ([facility]) Charcot's Joint of Left Foot History of Transmetatarsal Amputation of Left Foot (Hcc) Below-Knee Amputation of Left Lower Extremity (Hcc) Overactive Bladder Current Outpatient Medications Medication Sig - amLODIPine (NORVASC) 10 mg tablet Take 1 tablet by mouth once daily. - tolterodine (DETROL) 2 mg tablet Take 1 tablet by mouth every morning. - rOPINIRole (REQUIP) 0.25 mg tablet Take 1 tablet by mouth twice daily. - DULoxetine (CYMBALTA) 60 mg capsule Take 1 capsule by mouth once daily. - levothyroxine (SYNTHROID) 75 mcg tablet Take 3 tablets by mouth once daily. Take on empty stomach. For Thyroid - DULoxetine (CYMBALTA) 30 mg capsule Take 1 capsule by mouth once daily. With 60 mg capsule for total of 90 mg daily. - buPROPion SR (ZYBAN SR; WELLBUTRIN SR) 150 mg 12 hr tablet Take 1 tablet by mouth twice daily. - dulaglutide (TRULICITY) 1.5 mg/0.5 mL pen injector Inject 1.5 mg subcutaneously one time a week. Inject once per week. Discard Pen After - insulin glargine (LANTUS SOLOSTAR U-100 INSULIN) 100 unit/mL (3 mL) Inject 150 Units subcutaneously twice daily at 6AM and 9PM. (Patient taking differently: Inject 100 Units subcutaneously twice daily at 6AM and 9PM. ) - omeprazole (PRILOSEC) 40 mg capsule Take 1 capsule by mouth twice daily - insulin needles, DISPOSABLE, 31 gauge x 5/16 1 Each twice daily. use the following Unigard 8 mm 31 gauge pen tips. - insulin aspart U-100 (NOVOLOG FLEXPEN U-100 INSULIN) 100 unit/mL (3 mL) Inject 60 Units subcutaneously three times daily with meals. (Patient taking differently: Inject 60 Units subcutaneously three times daily with meals. Patient testing blood sugars prior to eating, injecting 20-30 units prior to meals depending on blood sugar readings. ) - albuterol sulfate 90 mcg/actuation breath activated powder inhaler Inhale 2 Puffs as instructed every 6 hours as needed (wheezing, dyspnea). - blood sugar diagnostic (BLOOD GLUCOSE TEST) test strip Test blood sugar(s) 4to 5 times daily. Dx: Type 2 DM - Uncontrolled E11.65 Insulin: Yes - insulin syringe,safetyneedle 1 mL 30 gauge x 5/16 syrg Use one syringe for each dose, 5 times a day - metoprolol succinate ER (TOPROL XL) 25 mg 24 hr tablet Take 1 tablet by mouth once daily. - fluticasone (FLONASE) 50 mcg/actuation nasal spray Use 2 Sprays in each nostril once daily. Rinse mouth after use. - COMPOUNDED PRESCRIPTION BiPAP supplies: Mask, hose, reservoirs. Dx: G47.33. - Insulin Syringe-Needle U-100 1 mL 29 gauge x 1/2 syrg Use one syringe for each dose. 3x per day - BIPAP - lancets(FREESTYLE LANCETS) Test blood sugar twice daily. 250.02, non insulin dep - atorvastatin (LIPITOR) 20 mg tablet Take 1 tablet by mouth once daily. (Patient not taking: Reported on 11/20/2021 ) - fenofibrate (LOFIBRA) 200 mg capsule Take 1 capsule by mouth daily with breakfast. (Patient not taking: Reported on 11/20/2021 ) - CPAP CPAP lifetime supplies Dx: G47.33, Z99.89 (Patient not taking: Reported on 11/20/2021 ) No current facility-administered medications for this visit. Objective BP 128/76 (BP Site: Left Arm, BP Position: Sitting, BP Cuff Size: Extra Large Adult) Pulse 80 Temp 36.6 ?C (97.8 ?F) (Temporal Artery) Resp 16 Wt (!) 175.5 kg (387 lb) BMI 53.22 kg/m? Physical Exam Constitutional: General: He is not in acute distress. Appearance: He is obese. Cardiovascular: Rate and Rhythm: Normal rate and regular rhythm. Heart sounds: No murmur heard. No gallop. Pulmonary: Effort: Pulmonary effort is normal. Breath sounds: Normal breath sound (more content not included)... [facility] 10-13-2021 Note HNO ID: [id number] Author: Araceli King LPN Service: ? Author Type: ? Type: Progress Notes Filed: 10/13/2021 5:48 PM Note Text: POPULATION HEALTH NAVIGATION OUTREACH Action/FYI Called both numbers listed, home phone just rings, no answer, mobile number, vm has not been set up. Contact made with patient or family member? NO Pt identified by name and : YES Outreach Outcome/Action Reason for Outreach Care Gap or Scheduling/Wellness visits Payer: Payor: [facility] / Plan: [facility] AARP SUPPLEMENT / Product Type: Indemnity / Care Gap Reviewed:: Follow-up appointment Controlling Blood Pressure Reminder: Reminder note to check Health Maintenance for items below Health Maintenance items due: COVID-19 VACCINE(1) Never done BP CONTROLLED (<130/80) Never done DILATED RETINAL EXAM due on 11/23/2019 URINE ALBUMIN:CREATININE RATIO due on 02/07/2020 COLORECTAL CANCER SCREENING due on 02/25/2020 HBA1C due on 05/27/2021 INFLUENZA(1) due on 07/02/2021 Araceli King LPN October 13, 2021 5:45 PM [facility] 10-13-2021 Note Patient Outreach (IN TMWS) ANDREI WANG ([id number]) 1955 M Date Time Provider Department 10/13/21 ARACELI KING (OTIS) INTMWS During your visit today, we recorded the following information about you: Araceli King LPN 10/13/2021 5:48 PM Signed POPULATION HEALTH NAVIGATION OUTREACH Action/FYI Called both numbers listed, home phone just rings, no answer, mobile number, vm has not been set up. Contact made with patient or family member? NO Pt identified by name and : YES Outreach Outcome/Action Reason for Outreach Care Gap or Scheduling/Wellness visits Payer: Payor: [facility] / Plan: [facility] A[employer] SUPPLEMENT / Product Type: Indemnity / Care Gap Reviewed:: Follow-up appointment Controlling Blood Pressure Reminder: Reminder note to check Health Maintenance for items below Health Maintenance items due: COVID-19 VACCINE(1) Never done BP CONTROLLED (<130/80) Never done DILATED RETINAL EXAM due on 11/23/2019 URINE ALBUMIN:CREATININE RATIO due on 02/07/2020 COLORECTAL CANCER SCREENING due on 02/25/2020 HBA1C due on 05/27/2021 INFLUENZA(1) due on 07/02/2021 Araceli King OTIS October 13, 2021 5:45 PM Allergies As of Date: 10/13/2021 Noted Allergy Reaction ALCOHOL 11/21/2008 5 - Intolerance Comments: Hx of Alcoholism CRESTOR (ROSUVASTATIN CALCIUM) 07/01/2018 14 - Other: See Comments Comments: Mild joint and muscle aching PRAVASTATIN 07/01/2018 17 - Myalgia Comments: Significant Joint and muscle aches SIMVASTATIN 07/01/2018 14 - Other: See Comments Comments: Mild muslce/joint aching Date Reviewed: 02/25/2021 Reviewed by: Senia Dominguez APRN.BOXING INSPECTOR - Fully Assessed Prescriptions as of 10/13/2021 - tolterodine (DETROL) 2 mg tablet Take 1 tablet by mouth every morning. - amLODIPine (NORVASC) 10 mg tablet Take 0.5 tablets by mouth once daily. - rOPINIRole (REQUIP) 0.25 mg tablet Take 1 tablet by mouth twice daily. - levothyroxine (SYNTHROID) 75 mcg tablet Take 3 tablets by mouth once daily. Take on empty stomach. For Thyroid - DULoxetine (CYMBALTA) 30 mg capsule Take 1 capsule by mouth once daily. With 60 mg capsule for total of 90 mg daily. - buPROPion SR (ZYBAN SR; WELLBUTRIN SR) 150 mg 12 hr tablet Take 1 tablet by mouth twice daily. - dulaglutide (TRULICITY) 1.5 mg/0.5 mL pen injector Inject 1.5 mg subcutaneously one time a week. Inject once per week. Discard Pen After - atorvastatin (LIPITOR) 20 mg tablet Take 1 tablet by mouth once daily. - insulin glargine (LANTUS SOLOSTAR U-100 INSULIN) 100 unit/mL (3 mL) Inject 150 Units subcutaneously twice daily at 6AM and 9PM. - omeprazole (PRILOSEC) 40 mg capsule Take 1 capsule by mouth twice daily - insulin needles, DISPOSABLE, 31 gauge x 5/16 1 Each twice daily. use the following Unigard 8 mm 31 gauge pen tips. - insulin aspart U-100 (NOVOLOG FLEXPEN U-100 INSULIN) 100 unit/mL (3 mL) Inject 60 Units subcutaneously three times daily with meals. - DULoxetine (CYMBALTA) 60 mg capsule Take 1 capsule by mouth once daily. - albuterol sulfate 90 mcg/actuation breath activated powder inhaler Inhale 2 Puffs as instructed every 6 hours as needed (wheezing, dyspnea). - blood sugar diagnostic (BLOOD GLUCOSE TEST) test strip Test blood sugar(s) 4to 5 times daily. Dx: Type 2 DM - Uncontrolled E11.65 Insulin: Yes - insulin syringe,safetyneedle 1 mL 30 gauge x 5/16 syrg Use one syringe for each dose, 5 times a day - fenofibrate (LOFIBRA) 200 mg capsule Take 1 capsule by mouth daily with breakfast. - metoprolol succinate ER (TOPROL XL) 25 mg 24 hr tablet Take 1 tablet by mouth once daily. - fluticasone (FLONASE) 50 mcg/actuation nasal spray Use 2 Sprays in each nostril once daily. Rinse mouth after use. - CPAP CPAP lifetime supplies Dx: G47.33, Z99.89 - COMPOUNDED PRESCRIPTION BiPAP supplies: Mask, hose, reservoirs. Dx: G47.33. - Insulin Syringe-Needle U-100 1 mL 29 gauge x 1/2 syrg Use one syringe for each dose. 3x per day - BIPAP - lancets(FREESTYLE LANCETS) Test blood sugar twice daily. 250.02, non insulin dep Problem List As Of Date 10/13/2021 Noted Resolved Obesity, Class III, BMI 40-49.9 (morbid obesity*06/04/2008 ESOPHAGEAL REFLUX [K21.9] 06/04/2008 Diabetes mellitus type 2 [E11.9] 06/04/2008 10/16/2015 COPD (chronic obstructive pulmonary disease) (H*06/04/2008 Hyperlipidemia [E78.5] 06/04/2008 Generalized osteoarthrosis, unspecified site [M*06/04/2008 12/05/2015 PULMONARY HYPERTENSION [J98.4] 06/04/2008 CECILE on CPAP [G47.33, Z99.89] 06/04/2008 Abnormal weight gain [R63.5] 06/04/2008 01/09/2011 Personal history of tobacco use, presenting haz*06/04/2008 09/28/2011 KNEE PAIN [M25.569] 08/13/2008 02/16/2020 Type 2 diabetes mellitus with stage 3 chronic k*08/13/2008 Depression with anxiety [F41.8] 05/28/2009 Dizziness [R42] 05/02/2010 01/09/2011 Hypothyroid [E03.9] (more content not included)... [facility] 09-05-2021 Note Patient Outreach (NE TNAV) ANDREI WANG ([id number]) 1955 M Date Time Provider Department 09/05/21 MAISHA LE (HAYDEE) BC During your visit today, we recorded the following information about you: Maisha HUBBARD 09/05/2021 11:47 AM Signed POPULATION HEALTH NAVIGATION OUTREACH Action/FYI Pt states that he will speak with his doctor first before scheduling a colonoscopy. Contact made with patient or family member? YES Pt identified by name and : YES Outreach Outcome/Action Spoke to patient or caregiver: No action required (information or reminder only) Reason for Outreach Care Gap or Scheduling/Wellness visits Payer: Payor: MEDICARE / Plan: MEDICARE A AND B / Product Type: Medicare / Care Gap Reviewed:: Colorectal Cancer Screening Reminder: Reminder note to check Health Maintenance for items below Health Maintenance items due: COVID-19 VACCINE(1) Never done BP CONTROLLED (<130/80) Never done DILATED RETINAL EXAM due on 11/23/2019 URINE ALBUMIN:CREATININE RATIO due on 02/07/2020 COLORECTAL CANCER SCREENING due on 02/25/2020 HBA1C due on 05/27/2021 INFLUENZA(1) due on 07/02/2021 Advanced Directives Completed: Have you ever planned for future healthcare decisions with a power of business attorney, living will, or advance directives? No. Are you interested in a follow-up phone call or visit with a doctor for more information about planning for future health care decisions? No Referrals: N/A Message Sent to Practice: NO Navigation Signature: Maisha HUBBARD September 05, 2021 11:40 AM Allergies As of Date: 09/05/2021 Noted Allergy Reaction ALCOHOL 11/21/2008 5 - Intolerance Comments: Hx of Alcoholism CRESTOR (ROSUVASTATIN CALCIUM) 07/01/2018 14 - Other: See Comments Comments: Mild joint and muscle aching PRAVASTATIN 07/01/2018 17 - Myalgia Comments: Significant Joint and muscle aches SIMVASTATIN 07/01/2018 14 - Other: See Comments Comments: Mild muslce/joint aching Date Reviewed: 02/25/2021 Reviewed by: Senia Dominguez APRN.BOXING INSPECTOR - Fully Assessed Reason for Visit: Population Health Navigation Outreach [3910] Cmt: Colorectal Cancer Screening Prescriptions as of 09/05/2021 - levothyroxine (SYNTHROID) 75 mcg tablet Take 3 tablets by mouth once daily. Take on empty stomach. For Thyroid - DULoxetine (CYMBALTA) 60 mg capsule Take 1 capsule by mouth once daily. - DULoxetine (CYMBALTA) 30 mg capsule Take 1 capsule by mouth once daily. With 60 mg capsule for total of 90 mg daily. - buPROPion SR (ZYBAN SR; WELLBUTRIN SR) 150 mg 12 hr tablet Take 1 tablet by mouth twice daily. - dulaglutide (TRULICITY) 1.5 mg/0.5 mL pen injector Inject 1.5 mg subcutaneously one time a week. Inject once per week. Discard Pen After - atorvastatin (LIPITOR) 20 mg tablet Take 1 tablet by mouth once daily. - albuterol sulfate 90 mcg/actuation breath activated powder inhaler Inhale 2 Puffs as instructed every 6 hours as needed (wheezing, dyspnea). - blood sugar diagnostic (BLOOD GLUCOSE TEST) test strip Test blood sugar(s) 4to 5 times daily. Dx: Type 2 DM - Uncontrolled E11.65 Insulin: Yes - insulin glargine (LANTUS SOLOSTAR U-100 INSULIN) 100 unit/mL (3 mL) Inject 150 Units subcutaneously twice daily at 6AM and 9PM. - amLODIPine (NORVASC) 10 mg tablet Take 0.5 tablets by mouth once daily. - omeprazole (PRILOSEC) 40 mg capsule Take 1 capsule by mouth twice daily - tolterodine (DETROL) 2 mg tablet Take 1 tablet by mouth every morning. - insulin needles, DISPOSABLE, 31 gauge x 5/16 1 Each twice daily. use the following Unigard 8 mm 31 gauge pen tips. - insulin aspart U-100 (NOVOLOG FLEXPEN U-100 INSULIN) 100 unit/mL (3 mL) Inject 60 Units subcutaneously three times daily with meals. - rOPINIRole (REQUIP) 0.25 mg tablet Take 1 tablet by mouth twice daily. - insulin syringe,safetyneedle 1 mL 30 gauge x 5/16 syrg Use one syringe for each dose, 5 times a day - fenofibrate (LOFIBRA) 200 mg capsule Take 1 capsule by mouth daily with breakfast. - metoprolol succinate ER (TOPROL XL) 25 mg 24 hr tablet Take 1 tablet by mouth once daily. - fluticasone (FLONASE) 50 mcg/actuation nasal spray Use 2 Sprays in each nostril once daily. Rinse mouth after use. - CPAP CPAP lifetime supplies Dx: G47.33, Z99.89 - COMPOUNDED PRESCRIPTION BiPAP supplies: Mask, hose, reservoirs. Dx: G47.33. - Insulin Syringe-Needle U-100 1 mL 29 gauge x 1/2 syrg Use one syringe for each dose. 3x per day - BIPAP - lancets(FREESTYLE LANCETS) Test blood sugar twice daily. 250.02, non insulin dep Problem List As Of Date 09/05/2021 Noted Resolved Obesity, Class III, BMI 40-49.9 (morbid obesity*06/04/2008 ESOPHAGEAL REFLUX [K21.9] 06/04/2008 Diabetes mellitus type 2 [E11.9] 06/04/2008 10/16/2015 COPD (chronic obstructive pulmonary disease) (H*06/04/2008 Hyperlipidemia [E78.5] 06/04/2008 Generalize (more content not included)... [facility] 09-05-2021 Note HNO ID: [id number] [facility] Service: ? Author Type: ? Type: Progress Notes Filed: 09/05/2021 11:47 AM Note Text: POPULATION HEALTH NAVIGATION OUTREACH Action/FYI Pt states that he will speak with his doctor first before scheduling a colonoscopy. Contact made with patient or family member? YES Pt identified by name and : YES Outreach Outcome/Action Spoke to patient or caregiver: No action required (information or reminder only) Reason for Outreach Care Gap or Scheduling/Wellness visits Payer: Payor: MEDICARE / Plan: MEDICARE A AND B / Product Type: Medicare / Care Gap Reviewed:: Colorectal Cancer Screening Reminder: Reminder note to check Health Maintenance for items below Health Maintenance items due: COVID-19 VACCINE(1) Never done BP CONTROLLED (<130/80) Never done DILATED RETINAL EXAM due on 11/23/2019 URINE ALBUMIN:CREATININE RATIO due on 02/07/2020 COLORECTAL CANCER SCREENING due on 02/25/2020 HBA1C due on 05/27/2021 INFLUENZA(1) due on 07/02/2021 Advanced Directives Completed: Have you ever planned for future healthcare decisions with a power of business attorney, living will, or advance directives? No. Are you interested in a follow-up phone call or visit with a doctor for more information about planning for future health care decisions? No Referrals: N/A Message Sent to Practice: NO Navigation Signature: Maisha HUBBARD September 05, 2021 11:40 AM [facility] 07-14-2021 Note HNO ID: [id number] Author: Araceli King LPN Service: ? Author Type: ? Type: Progress Notes Filed: 07/14/2021 5:54 PM Note Text: POPULATION HEALTH NAVIGATION OUTREACH Action/FYI Contact made with patient or family member? YES Pt identified by name and : YES Outreach Outcome/Action Spoke to [place], transportation is still an issue, he knows he needs to come in, will try to arrange transportation. Reason for Outreach Care Gap or Scheduling/Wellness visits Payer: Payor: MEDICARE / Plan: MEDICARE A AND B / Product Type: Medicare / Care Gap Reviewed:: Follow-up appointment Reminder: Reminder note to check Health Maintenance for items below Health Maintenance items due: COVID-19 VACCINE(1) Never done BP CONTROLLED (<130/80) Never done DILATED RETINAL EXAM due on 11/23/2019 URINE ALBUMIN:CREATININE RATIO due on 02/07/2020 COLORECTAL CANCER SCREENING due on 02/25/2020 HBA1C due on 05/27/2021 INFLUENZA(1) due on 07/02/2021 Araceli King LPN July 14, 2021 4:10 PM [facility] 07-14-2021 Note Patient Outreach (IN TMWS) ANDREI WANG ([id number]) 1955 M Date Time Provider Department 07/14/21 ARACELI KING (OTIS) INTMWS During your visit today, we recorded the following information about you: Araceli King LPN 07/14/2021 5:54 PM Signed POPULATION HEALTH NAVIGATION OUTREACH Action/FYI Contact made with patient or family member? YES Pt identified by name and : YES Outreach Outcome/Action Spoke to Andrei, transportation is still an issue, he knows he needs to come in, will try to arrange transportation. Reason for Outreach Care Gap or Scheduling/Wellness visits Payer: Payor: MEDICARE / Plan: MEDICARE A AND B / Product Type: Medicare / Care Gap Reviewed:: Follow-up appointment Reminder: Reminder note to check Health Maintenance for items below Health Maintenance items due: COVID-19 VACCINE(1) Never done BP CONTROLLED (<130/80) Never done DILATED RETINAL EXAM due on 11/23/2019 URINE ALBUMIN:CREATININE RATIO due on 02/07/2020 COLORECTAL CANCER SCREENING due on 02/25/2020 HBA1C due on 05/27/2021 INFLUENZA(1) due on 07/02/2021 Araceli King LPN July 14, 2021 4:10 PM Allergies As of Date: 07/14/2021 Noted Allergy Reaction ALCOHOL 11/21/2008 5 - Intolerance Comments: Hx of Alcoholism CRESTOR (ROSUVASTATIN CALCIUM) 07/01/2018 14 - Other: See Comments Comments: Mild joint and muscle aching PRAVASTATIN 07/01/2018 17 - Myalgia Comments: Significant Joint and muscle aches SIMVASTATIN 07/01/2018 14 - Other: See Comments Comments: Mild muslce/joint aching Date Reviewed: 02/25/2021 Reviewed by: Senia Dominguez APRN.BOXING INSPECTOR - Fully Assessed Prescriptions as of 07/14/2021 - atorvastatin (LIPITOR) 20 mg tablet Take 1 tablet by mouth once daily. - albuterol sulfate 90 mcg/actuation breath activated powder inhaler Inhale 2 Puffs as instructed every 6 hours as needed (wheezing, dyspnea). - levothyroxine (SYNTHROID) 75 mcg tablet Take 3 tablets by mouth once daily. Take on empty stomach. For Thyroid - blood sugar diagnostic (BLOOD GLUCOSE TEST) test strip Test blood sugar(s) 4to 5 times daily. Dx: Type 2 DM - Uncontrolled E11.65 Insulin: Yes - insulin glargine (LANTUS SOLOSTAR U-100 INSULIN) 100 unit/mL (3 mL) Inject 150 Units subcutaneously twice daily at 6AM and 9PM. - amLODIPine (NORVASC) 10 mg tablet Take 0.5 tablets by mouth once daily. - omeprazole (PRILOSEC) 40 mg capsule Take 1 capsule by mouth twice daily - tolterodine (DETROL) 2 mg tablet Take 1 tablet by mouth every morning. - insulin needles, DISPOSABLE, 31 gauge x 5/16 1 Each twice daily. use the following firstSTREET for [employer] 8 mm 31 gauge pen tips. - insulin aspart U-100 (NOVOLOG FLEXPEN U-100 INSULIN) 100 unit/mL (3 mL) Inject 60 Units subcutaneously three times daily with meals. - dulaglutide (TRULICITY) 1.5 mg/0.5 mL pen injector Inject 1.5 mg subcutaneously one time a week. Inject once per week. Discard Pen After - buPROPion SR (ZYBAN SR; WELLBUTRIN SR) 150 mg 12 hr tablet Take 1 tablet by mouth twice daily. - DULoxetine (CYMBALTA) 60 mg capsule Take 1 capsule by mouth once daily. - DULoxetine (CYMBALTA) 30 mg capsule Take 1 capsule by mouth once daily. With 60 mg capsule for total of 90 mg daily. - rOPINIRole (REQUIP) 0.25 mg tablet Take 1 tablet by mouth twice daily. - insulin syringe,safetyneedle 1 mL 30 gauge x 5/16 syrg Use one syringe for each dose, 5 times a day - fenofibrate (LOFIBRA) 200 mg capsule Take 1 capsule by mouth daily with breakfast. - metoprolol succinate ER (TOPROL XL) 25 mg 24 hr tablet Take 1 tablet by mouth once daily. - fluticasone (FLONASE) 50 mcg/actuation nasal spray Use 2 Sprays in each nostril once daily. Rinse mouth after use. - CPAP CPAP lifetime supplies Dx: G47.33, Z99.89 - COMPOUNDED PRESCRIPTION BiPAP supplies: Mask, hose, reservoirs. Dx: G47.33. - Insulin Syringe-Needle U-100 1 mL 29 gauge x 1/2 syrg Use one syringe for each dose. 3x per day - BIPAP - lancets(FREESTYLE LANCETS) Test blood sugar twice daily. 250.02, non insulin dep Problem List As Of Date 07/14/2021 Noted Resolved Obesity, Class III, BMI 40-49.9 (morbid obesity*06/04/2008 ESOPHAGEAL REFLUX [K21.9] 06/04/2008 Diabetes mellitus type 2 [E11.9] 06/04/2008 10/16/2015 COPD (chronic obstructive pulmonary disease) (H*06/04/2008 Hyperlipidemia [E78.5] 06/04/2008 Generalized osteoarthrosis, unspecified site [M*06/04/2008 12/05/2015 PULMONARY HYPERTENSION [J98.4] 06/04/2008 CECILE on CPAP [G47.33, Z99.89] 06/04/2008 Abnormal weight gain [R63.5] 06/04/2008 01/09/2011 Personal history of tobacco use, presenting haz*06/04/2008 09/28/2011 KNEE PAIN [M25.569] 08/13/2008 02/16/2020 Type 2 diabetes mellitus with stage 3 chronic k*08/13/2008 Depression with anxiety [F41.8] 05/28/2009 Dizziness [R42] 05/02/2010 01/09/2011 Hypothyroid [E03.9] 09/23/2010 Hematuria [R31.9] more content not included)... [facility] 05-27-2021 Miscellaneous Notes patient has been scheduled 1st attempt. Message left for patient to contact office to schedule in office follow up. Please call pt to arrange appt. Schedule in office follow up. Note: # 90 = 30 day supply. Patient has been identified by name and date of : Yes Pharmacy phones for refill(s): Pending Prescriptions Disp Refills LEVOTHYROXINE 75 MCG TABLET 90 tablet 3 Sig: Take 3 tablets by mouth once daily. Take on empty stomach. For Thyroid MARIA DEL ROSARIO: No Date of last office visit with pcp: 01-28-21. Next appt: none Date of last office visit in primary care: 02-25-21. Next appt: none Last 2 Encounter Wt Readings: Date: Wt: 02/25/2021 192.8 kg (425 lb) 11/17/2019 177.8 kg (392 lb) Previous labs/tests for medication: Thyroid: See in epic under lab tab: 10-07-20: TSH was 5.789 H at [facility]. TSH (uU/mL) Date Value 05/13/2018 2.030 Please advise. Thank you. Ana Lilia Schumacher RN documented in this encounter [facility] documented as of this encounter (statuses as of 02/05/2022) [facility]2020 History of Past illness Narrative* Problem Noted Date Resolved Date Abrasion of great toe of right foot 09/17/2020 10/18/2020 Overview: Per Dr. Jones, Snf charges 09/13/2020 Abrasion of leg, left 09/17/2020 10/18/2020 Overview: Per Dr. Jones, Snf charges 09/13/2020 Anxiety 06/20/2020 10/18/2020 Overview: Per Dr. Jones, Snf charges 06/14/2020 Uncontrolled diabetes mellitus 05/21/2020 1 12/19/2019 Overview: Per Dr. Jones, Snf charges 05/17/2020 Kidney insufficiency 05/21/2020 08/16/2020 Overview: Per Dr. Jones, Snf charges, 05/17/2020 Diabetic ulcer of left midfo ot associated with diabetes mellitus due to underlying condition 04/05/2020 10/18/2020 Chronic osteomyelitis of foot 06/01/2017 CKD (chronic kidney disease) stage 3, GFR 30-59 ml/min 01/28/2017 10/18/2020 Non compliance w medication regimen 10/02/2016 11/07/2019 Gas gangrene of foot 12/03/2015 01/28/2017 Overview: Dr. Nathanael Quiles, DPM Insomnia 04/30/2015 11/07/2019 Neuropathy 05/31/2013 02/16/2020 Frequency of urination 03/28/2013 7 Urgency of urination 03/28/2013 01/28/2017 Nocturia 03/28/2013 06/08/2018 Polypharmacy 03/28/2013 07/24/2014 Headache(784.0) 01/12/2013 03/22/2013 Dietary surveillance and counseling 06/13/2012 03/22/2013 Fatty liver 04/12/2012 01/28/2017 Hematuria 09/29/2010 01/09/2011 Dizziness 05/02/2010 01/09/2011 KNEE PAIN 08/13/2008 02/16/2020 Overview: Controlled substance agreement signed and copy to pt and in scanned documents Diabetes mellitus type 2 06/04/2008 015 Overview: * Type (2004): dx diabetes type 2 * Control hx (03/24/10): TgJ9p=3.0% * Eye hx (05/2010): exam Dr. Lundberg, unclear if stable disease or clean * Neuro hx (09/04/10): burning dysesthesias in feet at rest, doesn't get sugars low enough to get hypoglycemic sx * Renal hx (): urine albumin=72 mcg/mg creat (): urine albumin=60 mcg/mg creat * Vascular hx (09/04/10): no hx GA, stroke, claudication (09/04/10): nudd=909, RV=523, HDL=34, zOMF=215 Generalized osteoarthrosis, unspecified site 01/200812/05/2015 Abnormal weight gain 06/04/2008 01/09/2011 Personal history of tobacco use, presenting hazards to health 06/04/2008 09/28/2011 Last Assessment & Plan: He remains abstinent documented as of this encounter (statuses as of 02/20/2022) [facility]-17-2020 History of Past illness Narrative* Problem Noted Date Resolved Date Abrasion of great toe of right foot 09/17/2020 10/18/2020 Overview: Per Dr. Jones, Snf charges 09/13/2020 Abrasion of leg, left 09/17/2020 10/18/2020 Overview: Per Dr. Jones, Snf charges 09/13/2020 Anxiety 06/20/2020 10/18/2020 Overview: Per Dr. Jones, Snf charges 06/14/2020 Uncontrolled diabetes mellitus 05/21/2020 1 12/19/2019 Overview: Per Dr. Jones, Snf charges 05/17/2020 Kidney insufficiency 05/21/2020 08/16/2020 Overview: Per Dr. Jones, Snf charges, 05/17/2020 Diabetic ulcer of left midfo ot associated with diabetes mellitus due to underlying condition 04/05/2020 10/18/2020 Chronic osteomyelitis of foot 06/01/2017 CKD (chronic kidney disease) stage 3, GFR 30-59 ml/min 01/28/2017 10/18/2020 Non compliance w medication regimen 10/02/2016 11/07/2019 Gas gangrene of foot 12/03/2015 01/28/2017 Overview: Dr. Nathanael Quiles, DPM Insomnia 04/30/2015 11/07/2019 Neuropathy 05/31/2013 02/16/2020 Frequency of urination 03/28/2013 7 Urgency of urination 03/28/2013 01/28/2017 Nocturia 03/28/2013 06/08/2018 Polypharmacy 03/28/2013 07/24/2014 Headache(784.0) 01/12/2013 03/22/2013 Dietary surveillance and counseling 06/13/2012 03/22/2013 Fatty liver 04/12/2012 01/28/2017 Hematuria 09/29/2010 01/09/2011 Dizziness 05/02/2010 01/09/2011 KNEE PAIN 08/13/2008 02/16/2020 Overview: Controlled substance agreement signed and copy to pt and in scanned documents Diabetes mellitus type 2 06/04/2008 015 Overview: * Type (2004): dx diabetes type 2 * Control hx (03/24/10): FtZ3i=6.0% * Eye hx (05/2010): exam Dr. Lundberg, unclear if stable disease or clean * Neuro hx (09/04/10): burning dysesthesias in feet at rest, doesn't get sugars low enough to get hypoglycemic sx * Renal hx (): urine albumin=72 mcg/mg creat (): urine albumin=60 mcg/mg creat * Vascular hx (09/04/10): no hx GA, stroke, claudication (09/04/10): onhs=087, AM=201, HDL=34, aVIZ=093 Generalized osteoarthrosis, unspecified site 01/200812/05/2015 Abnormal weight gain 06/04/2008 01/09/2011 Personal history of tobacco use, presenting hazards to health 06/04/2008 09/28/2011 Last Assessment & Plan: He remains abstinent documented as of this encounter (statuses as of 02/23/2022) [facility]-17-2020 History of Past illness Narrative* Problem Noted Date Resolved Date Abrasion of great toe of right foot 09/17/2020 10/18/2020 Overview: Per Dr. Jones, Snf charges 09/13/2020 Abrasion of leg, left 09/17/2020 10/18/2020 Overview: Per Dr. Jones, Snf charges 09/13/2020 Anxiety 06/20/2020 10/18/2020 Overview: Per Dr. Jones, Snf charges 06/14/2020 Uncontrolled diabetes mellitus 05/21/2020 1 12/19/2019 Overview: Per Dr. Jones, Snf charges 05/17/2020 Kidney insufficiency 05/21/2020 08/16/2020 Overview: Per Dr. Jones, Snf charges, 05/17/2020 Diabetic ulcer of left midfo ot associated with diabetes mellitus due to underlying condition 04/05/2020 10/18/2020 Chronic osteomyelitis of foot 06/01/2017 CKD (chronic kidney disease) stage 3, GFR 30-59 ml/min 01/28/2017 10/18/2020 Non compliance w medication regimen 10/02/2016 11/07/2019 Gas gangrene of foot 12/03/2015 01/28/2017 Overview: Dr. Nathanael Quiles, DPM Insomnia 04/30/2015 11/07/2019 Neuropathy 05/31/2013 02/16/2020 Frequency of urination 03/28/2013 7 Urgency of urination 03/28/2013 01/28/2017 Nocturia 03/28/2013 06/08/2018 Polypharmacy 03/28/2013 07/24/2014 Headache(784.0) 01/12/2013 03/22/2013 Dietary surveillance and counseling 06/13/2012 03/22/2013 Fatty liver 04/12/2012 01/28/2017 Hematuria 09/29/2010 01/09/2011 Dizziness 05/02/2010 01/09/2011 KNEE PAIN 08/13/2008 02/16/2020 Overview: Controlled substance agreement signed and copy to pt and in scanned documents Diabetes mellitus type 2 06/04/2008 015 Overview: * Type (2004): dx diabetes type 2 * Control hx (03/24/10): YrN6n=1.0% * Eye hx (05/2010): exam Dr. Lundberg, unclear if stable disease or clean * Neuro hx (09/04/10): burning dysesthesias in feet at rest, doesn't get sugars low enough to get hypoglycemic sx * Renal hx (): urine albumin=72 mcg/mg creat (): urine albumin=60 mcg/mg creat * Vascular hx (09/04/10): no hx [place], stroke, claudication (09/04/10): xkgi=918, HE=530, HDL=34, uTIS=626 Generalized osteoarthrosis, unspecified site 01/200812/05/2015 Abnormal weight gain 06/04/2008 01/09/2011 Personal history of tobacco use, presenting hazards to health 06/04/2008 09/28/2011 Last Assessment & Plan: He remains abstinent documented as of this encounter (statuses as of 03/07/2022) [facility] History of Past illness Narrative* Problem Noted Date Resolved Date Abrasion of great toe of right foot 09/17/2020 10/18/2020 Overview: Per Dr. Jones, Snf charges 09/13/2020 Abrasion of leg, left 09/17/2020 10/18/2020 Overview: Per Dr. Jones, Snf charges 09/13/2020 Anxiety 06/20/2020 10/18/2020 Overview: Per Dr. Jones, Snf charges 06/14/2020 Uncontrolled diabetes mellitus 05/21/2020 1 12/19/2019 Overview: Per Dr. Jones, Snf charges 05/17/2020 Kidney insufficiency 05/21/2020 08/16/2020 Overview: Per Dr. Jones, Snf charges, 05/17/2020 Diabetic ulcer of left midfo ot associated with diabetes mellitus due to underlying condition 04/05/2020 10/18/2020 Chronic osteomyelitis of foot 06/01/2017 CKD (chronic kidney disease) stage 3, GFR 30-59 ml/min 01/28/2017 10/18/2020 Non compliance w medication regimen 10/02/2016 11/07/2019 Gas gangrene of foot 12/03/2015 01/28/2017 Overview: Dr. Nathanael Quiles, DPM Insomnia 04/30/2015 11/07/2019 Neuropathy 05/31/2013 02/16/2020 Frequency of urination 03/28/2013 7 Urgency of urination 03/28/2013 01/28/2017 Nocturia 03/28/2013 06/08/2018 Polypharmacy 03/28/2013 07/24/2014 Headache(784.0) 01/12/2013 03/22/2013 Dietary surveillance and counseling 06/13/2012 03/22/2013 Fatty liver 04/12/2012 01/28/2017 Hematuria 09/29/2010 01/09/2011 Dizziness 05/02/2010 01/09/2011 KNEE PAIN 08/13/2008 02/16/2020 Overview: Controlled substance agreement signed and copy to pt and in scanned documents Diabetes mellitus type 2 06/04/2008 015 Overview: * Type (2004): dx diabetes type 2 * Control hx (03/24/10): PiZ5q=7.0% * Eye hx (05/2010): exam Dr. Lundberg, unclear if stable disease or clean * Neuro hx (09/04/10): burning dysesthesias in feet at rest, doesn't get sugars low enough to get hypoglycemic sx * Renal hx (): urine albumin=72 mcg/mg creat (): urine albumin=60 mcg/mg creat * Vascular hx (09/04/10): no hx GA, stroke, claudication (09/04/10): vshu=361, AA=506, HDL=34, uKXO=533 Generalized osteoarthrosis, unspecified site 01/200812/05/2015 Abnormal weight gain 06/04/2008 01/09/2011 Personal history of tobacco use, presenting hazards to health 06/04/2008 09/28/2011 Last Assessment & Plan: He remains abstinent documented as of this encounter (statuses as of 03/24/2022) [facility]2020 History of Past illness Narrative* Problem Noted Date Resolved Date Abrasion of great toe of right foot 09/17/2020 10/18/2020 Overview: Per Dr. Jones, Snf charges 09/13/2020 Abrasion of leg, left 09/17/2020 10/18/2020 Overview: Per Dr. Jones, Snf charges 09/13/2020 Anxiety 06/20/2020 10/18/2020 Overview: Per Dr. Jones, Snf charges 06/14/2020 Uncontrolled diabetes mellitus 05/21/2020 1 12/19/2019 Overview: Per Dr. Jones, Snf charges 05/17/2020 Kidney insufficiency 05/21/2020 08/16/2020 Overview: Per Dr. Jones, Snf charges, 05/17/2020 Diabetic ulcer of left midfo ot associated with diabetes mellitus due to underlying condition 04/05/2020 10/18/2020 Chronic osteomyelitis of foot 06/01/2017 CKD (chronic kidney disease) stage 3, GFR 30-59 ml/min 01/28/2017 10/18/2020 Non compliance w medication regimen 10/02/2016 11/07/2019 Gas gangrene of foot 12/03/2015 01/28/2017 Overview: Dr. Nathanael Quiles, DPM Insomnia 04/30/2015 11/07/2019 Neuropathy 05/31/2013 02/16/2020 Frequency of urination 03/28/2013 7 Urgency of urination 03/28/2013 01/28/2017 Nocturia 03/28/2013 06/08/2018 Polypharmacy 03/28/2013 07/24/2014 Headache(784.0) 01/12/2013 03/22/2013 Dietary surveillance and counseling 06/13/2012 03/22/2013 Fatty liver 04/12/2012 01/28/2017 Hematuria 09/29/2010 01/09/2011 Dizziness 05/02/2010 01/09/2011 KNEE PAIN 08/13/2008 02/16/2020 Overview: Controlled substance agreement signed and copy to pt and in scanned documents Diabetes mellitus type 2 06/04/2008 015 Overview: * Type (2004): dx diabetes type 2 * Control hx (03/24/10): IlC4u=0.0% * Eye hx (05/2010): exam Dr. Lundberg, unclear if stable disease or clean * Neuro hx (09/04/10): burning dysesthesias in feet at rest, doesn't get sugars low enough to get hypoglycemic sx * Renal hx (): urine albumin=72 mcg/mg creat (): urine albumin=60 mcg/mg creat * Vascular hx (09/04/10): no hx GA, stroke, claudication (09/04/10): vkki=049, GX=579, HDL=34, kPDT=755 Generalized osteoarthrosis, unspecified site 01/200812/05/2015 Abnormal weight gain 06/04/2008 01/09/2011 Personal history of tobacco use, presenting hazards to health 06/04/2008 09/28/2011 Last Assessment & Plan: He remains abstinent documented as of this encounter (statuses as of 04/03/2022) [facility] History of Past illness Narrative* Problem Noted Date Resolved Date Abrasion of great toe of right foot 09/17/2020 10/18/2020 Overview: Per Dr. Jones, Snf charges 09/13/2020 Abrasion of leg, left 09/17/2020 10/18/2020 Overview: Per Dr. Jones, Snf charges 09/13/2020 Anxiety 06/20/2020 10/18/2020 Overview: Per Dr. Jones, Snf charges 06/14/2020 Uncontrolled diabetes mellitus 05/21/2020 1 12/19/2019 Overview: Per Dr. Jones, Snf charges 05/17/2020 Kidney insufficiency 05/21/2020 08/16/2020 Overview: Per Dr. Jones, Snf charges, 05/17/2020 Diabetic ulcer of left midfo ot associated with diabetes mellitus due to underlying condition 04/05/2020 10/18/2020 Chronic osteomyelitis of foot 06/01/2017 CKD (chronic kidney disease) stage 3, GFR 30-59 ml/min 01/28/2017 10/18/2020 Non compliance w medication regimen 10/02/2016 11/07/2019 Gas gangrene of foot 12/03/2015 01/28/2017 Overview: Dr. Nathanael Quiles, DPM Insomnia 04/30/2015 11/07/2019 Neuropathy 05/31/2013 02/16/2020 Frequency of urination 03/28/2013 7 Urgency of urination 03/28/2013 01/28/2017 Nocturia 03/28/2013 06/08/2018 Polypharmacy 03/28/2013 07/24/2014 Headache(784.0) 01/12/2013 03/22/2013 Dietary surveillance and counseling 06/13/2012 03/22/2013 Fatty liver 04/12/2012 01/28/2017 Hematuria 09/29/2010 01/09/2011 Dizziness 05/02/2010 01/09/2011 KNEE PAIN 08/13/2008 02/16/2020 Overview: Controlled substance agreement signed and copy to pt and in scanned documents Diabetes mellitus type 2 06/04/2008 015 Overview: * Type (2004): dx diabetes type 2 * Control hx (03/24/10): CsG0p=2.0% * Eye hx (05/2010): exam Dr. Lundberg, unclear if stable disease or clean * Neuro hx (09/04/10): burning dysesthesias in feet at rest, doesn't get sugars low enough to get hypoglycemic sx * Renal hx (): urine albumin=72 mcg/mg creat (): urine albumin=60 mcg/mg creat * Vascular hx (09/04/10): no hx GA, stroke, claudication (09/04/10): pqpl=029, QO=679, HDL=34, hKST=363 Generalized osteoarthrosis, unspecified site 01/200812/05/2015 Abnormal weight gain 06/04/2008 01/09/2011 Personal history of tobacco use, presenting hazards to health 06/04/2008 09/28/2011 Last Assessment & Plan: He remains abstinent documented as of this encounter (statuses as of 05/08/2022) [facility] History of Past illness Narrative* Problem Noted Date Resolved Date Abrasion of great toe of right foot 09/17/2020 10/18/2020 Overview: Per Dr. Jones, Snf charges 09/13/2020 Abrasion of leg, left 09/17/2020 10/18/2020 Overview: Per Dr. Jones, Snf charges 09/13/2020 Anxiety 06/20/2020 10/18/2020 Overview: Per Dr. Jones, Snf charges 06/14/2020 Uncontrolled diabetes mellitus 05/21/2020 1 12/19/2019 Overview: Per Dr. Jones, Snf charges 05/17/2020 Kidney insufficiency 05/21/2020 08/16/2020 Overview: Per Dr. Jones, Snf charges, 05/17/2020 Diabetic ulcer of left midfo ot associated with diabetes mellitus due to underlying condition 04/05/2020 10/18/2020 Chronic osteomyelitis of foot 06/01/2017 CKD (chronic kidney disease) stage 3, GFR 30-59 ml/min 01/28/2017 10/18/2020 Non compliance w medication regimen 10/02/2016 11/07/2019 Gas gangrene of foot 12/03/2015 01/28/2017 Overview: Dr. Nathanael Quiles, DPM Insomnia 04/30/2015 11/07/2019 Neuropathy 05/31/2013 02/16/2020 Frequency of urination 03/28/2013 7 Urgency of urination 03/28/2013 01/28/2017 Nocturia 03/28/2013 06/08/2018 Polypharmacy 03/28/2013 07/24/2014 Headache(784.0) 01/12/2013 03/22/2013 Dietary surveillance and counseling 06/13/2012 03/22/2013 Fatty liver 04/12/2012 01/28/2017 Hematuria 09/29/2010 01/09/2011 Dizziness 05/02/2010 01/09/2011 KNEE PAIN 08/13/2008 02/16/2020 Overview: Controlled substance agreement signed and copy to pt and in scanned documents Diabetes mellitus type 2 06/04/2008 015 Overview: * Type (2004): dx diabetes type 2 * Control hx (03/24/10): RlN3y=8.0% * Eye hx (05/2010): exam Dr. Lundberg, unclear if stable disease or clean * Neuro hx (09/04/10): burning dysesthesias in feet at rest, doesn't get sugars low enough to get hypoglycemic sx * Renal hx (): urine albumin=72 mcg/mg creat (): urine albumin=60 mcg/mg creat * Vascular hx (09/04/10): no hx GA, stroke, claudication (09/04/10): wlhh=209, VD=630, HDL=34, hPNB=673 Generalized osteoarthrosis, unspecified site 01/200812/05/2015 Abnormal weight gain 06/04/2008 01/09/2011 Personal history of tobacco use, presenting hazards to health 06/04/2008 09/28/2011 Last Assessment & Plan: He remains abstinent documented as of this encounter (statuses as of 05/08/2022) [facility] History of Past illness Narrative* Problem Noted Date Resolved Date Abrasion of great toe of right foot 09/17/2020 10/18/2020 Overview: Per Dr. Jones, Snf charges 09/13/2020 Abrasion of leg, left 09/17/2020 10/18/2020 Overview: Per Dr. Jones, Snf charges 09/13/2020 Anxiety 06/20/2020 10/18/2020 Overview: Per Dr. Jones, Snf charges 06/14/2020 Uncontrolled diabetes mellitus 05/21/2020 1 12/19/2019 Overview: Per Dr. Jones, Snf charges 05/17/2020 Kidney insufficiency 05/21/2020 08/16/2020 Overview: Per Dr. Jones, Snf charges, 05/17/2020 Diabetic ulcer of left midfo ot associated with diabetes mellitus due to underlying condition 04/05/2020 10/18/2020 Chronic osteomyelitis of foot 06/01/2017 CKD (chronic kidney disease) stage 3, GFR 30-59 ml/min 01/28/2017 10/18/2020 Non compliance w medication regimen 10/02/2016 11/07/2019 Gas gangrene of foot 12/03/2015 01/28/2017 Overview: Dr. Nathanael Quiles, DPM Insomnia 04/30/2015 11/07/2019 Neuropathy 05/31/2013 02/16/2020 Frequency of urination 03/28/2013 7 Urgency of urination 03/28/2013 01/28/2017 Nocturia 03/28/2013 06/08/2018 Polypharmacy 03/28/2013 07/24/2014 Headache(784.0) 01/12/2013 03/22/2013 Dietary surveillance and counseling 06/13/2012 03/22/2013 Fatty liver 04/12/2012 01/28/2017 Hematuria 09/29/2010 01/09/2011 Dizziness 05/02/2010 01/09/2011 KNEE PAIN 08/13/2008 02/16/2020 Overview: Controlled substance agreement signed and copy to pt and in scanned documents Diabetes mellitus type 2 06/04/2008 015 Overview: * Type (2004): dx diabetes type 2 * Control hx (03/24/10): QhH8k=6.0% * Eye hx (05/2010): exam Dr. Lundberg, unclear if stable disease or clean * Neuro hx (09/04/10): burning dysesthesias in feet at rest, doesn't get sugars low enough to get hypoglycemic sx * Renal hx (): urine albumin=72 mcg/mg creat (): urine albumin=60 mcg/mg creat * Vascular hx (09/04/10): no hx GA, stroke, claudication (09/04/10): eglp=519, QS=411, HDL=34, zTOU=065 Generalized osteoarthrosis, unspecified site 01/200812/05/2015 Abnormal weight gain 06/04/2008 01/09/2011 Personal history of tobacco use, presenting hazards to health 06/04/2008 09/28/2011 Last Assessment & Plan: He remains abstinent documented as of this encounter (statuses as of 05/19/2022) [facility] History of Past illness Narrative* Problem Noted Date Resolved Date Abrasion of great toe of right foot 09/17/2020 10/18/2020 Overview: Per Dr. Jones, Snf charges 09/13/2020 Abrasion of leg, left 09/17/2020 10/18/2020 Overview: Per Dr. Jones, Snf charges 09/13/2020 Anxiety 06/20/2020 10/18/2020 Overview: Per Dr. Jones, Snf charges 06/14/2020 Uncontrolled diabetes mellitus 05/21/2020 1 12/19/2019 Overview: Per Dr. Jones, Snf charges 05/17/2020 Kidney insufficiency 05/21/2020 08/16/2020 Overview: Per Dr. Jones, Snf charges, 05/17/2020 Diabetic ulcer of left midfo ot associated with diabetes mellitus due to underlying condition 04/05/2020 10/18/2020 Chronic osteomyelitis of foot 06/01/2017 CKD (chronic kidney disease) stage 3, GFR 30-59 ml/min 01/28/2017 10/18/2020 Non compliance w medication regimen 10/02/2016 11/07/2019 Gas gangrene of foot 12/03/2015 01/28/2017 Overview: Dr. Nathanael Quiles, DPM Insomnia 04/30/2015 11/07/2019 Neuropathy 05/31/2013 02/16/2020 Frequency of urination 03/28/2013 7 Urgency of urination 03/28/2013 01/28/2017 Nocturia 03/28/2013 06/08/2018 Polypharmacy 03/28/2013 07/24/2014 Headache(784.0) 01/12/2013 03/22/2013 Dietary surveillance and counseling 06/13/2012 03/22/2013 Fatty liver 04/12/2012 01/28/2017 Hematuria 09/29/2010 01/09/2011 Dizziness 05/02/2010 01/09/2011 KNEE PAIN 08/13/2008 02/16/2020 Overview: Controlled substance agreement signed and copy to pt and in scanned documents Diabetes mellitus type 2 06/04/2008 015 Overview: * Type (2004): dx diabetes type 2 * Control hx (03/24/10): JdS3q=5.0% * Eye hx (05/2010): exam Dr. Lundberg, unclear if stable disease or clean * Neuro hx (09/04/10): burning dysesthesias in feet at rest, doesn't get sugars low enough to get hypoglycemic sx * Renal hx (): urine albumin=72 mcg/mg creat (): urine albumin=60 mcg/mg creat * Vascular hx (09/04/10): no hx GA, stroke, claudication (09/04/10): hvwz=791, WV=559, HDL=34, oXEK=849 Generalized osteoarthrosis, unspecified site 01/200812/05/2015 Abnormal weight gain 06/04/2008 01/09/2011 Personal history of tobacco use, presenting hazards to health 06/04/2008 09/28/2011 Last Assessment & Plan: He remains abstinent documented as of this encounter (statuses as of 06/24/2022) [facility] Diagnosis Acquired hypothyroidism Unspecified hypothyroidism documented in this encounter [facility] note* Diagnosis Chronic obstructive pulmonary disease, unspecified COPD type ([facility])- [facility] Diagnosis Type 2 diabetes mellitus with stage 3 chronic kidney disease, with long-term current use of insulin ([facility]) CECILE on CPAP Obstructive sleep apnea (adult) (pediatric) Depression with anxiety Dysthymic disorder Arthritis of knee Unspecified arthropathy, lower leg Essential hypertension Unspecified essential hypertension [facility] Diagnosis Chronic total occlusion of coronary artery- [facility] Diagnosis Coronary artery disease involving iroquois coronary artery of iroquois heart without angina pectoris- Primary Coronary artery chronic total occlusion Coronary atherosclerosis of unspecified type of vessel, iroquois or graft Mixed hyperlipidemia Type 2 diabetes mellitus with other circulatory complication, with long-term current use of insulin ([facility]) Class 3 severe obesity due to excess calories with serious comorbidity and body mass index (BMI) of 40.0 to 44.9 in adult ([facility]) CECILE treated with BiPAP TIA (transient ischemic attack) Unspecified transient cerebral ischemia Stage 3 chronic kidney disease, unspecified whether stage 3a or 3b CKD ([facility]) Below-knee amputation ([facility]) Bilateral carotid artery stenosis Occlusion and stenosis of carotid artery without mention of cerebral infarction [facility] Diagnosis Coronary artery disease involving iroquois coronary artery of iroquois heart without angina pectoris- Primary Coronary artery chronic total occlusion Coronary atherosclerosis of unspecified type of vessel, iroquois or graft Mixed hyperlipidemia Type 2 diabetes mellitus with other circulatory complication, with long-term current use of insulin ([facility]) Class 3 severe obesity due to excess calories with serious comorbidity and body mass index (BMI) of 40.0 to 44.9 in adult ([facility]) CECILE treated with BiPAP TIA (transient ischemic attack) Unspecified transient cerebral ischemia Stage 3 chronic kidney disease, unspecified whether stage 3a or 3b CKD ([facility]) Below-knee amputation ([facility]CC) Bilateral carotid artery stenosis Occlusion and stenosis of carotid artery without mention of cerebral infarction Orthopnea Dyspnea on exertion Other dyspnea and respiratory abnormality documented in this encounter [facility] Summary Purpose Family History No Family History Records FoundNo Family History Records FoundNo Family History Records FoundNo Family History Records Found Advance Directives No Advanced Directives Records FoundNo Advanced Directives Records FoundNo Advanced Directives Records FoundNo Advanced Directives Records Found Reason for Referral Specialty Diagnoses / Procedures Referred By Contac t Referred To Contact Cardiology Diagnoses Coronary artery disease involving iroquois coronary artery of iroquois heart without angina pectoris Procedures Transthoracic echocardiogram (TTE) complete with contrast, bubble, strain, and 3D PRN MN ECHO TTHRC R-T 2D W/WOM-MODE COMPL SPEC&COLR D MN TTE W OR WO FOL WCON,DOPPLER Emeterio Soto MD [address] [place] [address] Referral ID Status Reason Start Date Expiration Date Visits Requested Visits Authorized [id number] Pending Review Perform Procedure 03/01/2023 08/28/2023 1 1 Additional Source Comments (unrecognized sect ion and content) No Status Records FoundNo Status Records FoundNo Status Records FoundNo Status Records Found INFORMATION SOURCE (unrecogn ized section and content) DATE CREATED AUTHOR AUTHOR'S ORGANIZ ATION 06/27/2022 [facility] DATE CREATED AUTHOR AUTHOR'S ORGANIZ ATION 02/19/2023 [facility] DATE CREATED AUTHOR AUTHOR'S ORGANIZ ATION 03/16/2023 [facility] Source Comments (unrecognize d section and content) In the event this informatio n is protected by the Federal Confidentiality of Alcohol and Drug Abuse Patient Records regulations: The Federal rules restrict any use of the information to criminally investigate or prosecute any alcohol or drug abuse patient.[facility] event this information is protected by the Federal Confidentiality of Alcohol and Drug Abuse Patient Records regulations: The Federal rules restrict any use of the information to criminally investigate or prosecute any alcohol or drug abuse patient.[facility] the event this information is protected by the Federal Confidentiality of Alcohol and Drug Abuse Patient Records regulations: The Federal rules restrict any use of the information to criminally investigate or prosecute any alcohol or drug abuse patient.[facility] the event this information is protected by the Federal Confidentiality of Alcohol and Drug Abuse Patient Records regulations: The Federal rules restrict any use of the information to criminally investigate or prosecute any alcohol or drug abuse patient.[facility] the event this information is protected by the Federal Confidentiality of Alcohol and Drug Abuse Patient Records regulations: The Federal rules restrict any use of the information to criminally investigate or prosecute any alcohol or drug abuse patient.[facility] the event this information is protected by the Federal Confidentiality of Alcohol and Drug Abuse Patient Records regulations: The Federal rules restrict any use of the information to criminally investigate or prosecute any alcohol or drug abuse patient.[facility] the event this information is protected by the Federal Confidentiality of Alcohol and Drug Abuse Patient Records regulations: The Federal rules restrict any use of the information to criminally investigate or prosecute any alcohol or drug abuse patient.[facility] the event this information is protected by the Federal Confidentiality of Alcohol and Drug Abuse Patient Records regulations: The Federal rules restrict any use of the information to criminally investigate or prosecute any alcohol or drug abuse patient.[facility] the event this information is protected by the Federal Confidentiality of Alcohol and Drug Abuse Patient Records regulations: The Federal rules restrict any use of the information to criminally investigate or prosecute any alcohol or drug abuse patient.[facility] the event this information is protected by the Federal Confidentiality of Alcohol and Drug Abuse Patient Records regulations: The Federal rules restrict any use of the information to criminally investigate or prosecute any alcohol or drug abuse patient.[facility] Reason for Visit (unrecogniz ed section and content) Reason Onset Date Comments Refill Request 05/09/2021 Reason Onset Date Comments Population Health Navigation Outreach 02/23/2022 HCC Gaps Reason Comments Patient Update Reason Onset Date Comments Refill Request 03/24/2022 Reason Onset Date Comments Refill Request 05/08/2022 Reason Comments patient insurance asking for insulin wade nge Reason Comments teeth infection Reason Comments Establish Care Specialty Diagnoses / Procedures Referred By Contact Referred To Contact Interventional Cardiology / Cardiovascular Medicine Diagnoses Sched by Freida with [facility] [phone], Pt is having a video visit with Dr. 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[employer]) Please use the number [phone] for the Video Visit number belongs to Messi Weiss (nurse at the facility) Procedures NEW VIDEO - PROV (3RD [employer]) Domo Blake MD [address] [facility] [address] [place] [address] Myke Cohen, Adama Quevedo MD [address] [facility] [place] [address] Referral ID Status Reason Start Date Expiration Date V isits Requested Visits Authorized [id number] Pending Review 02/19/2023 03/15/2024 1 1 Reason Comments Coronary Artery Disease Chest Pain Shortness of Breath Reason Onset Date Comments OTHER 03/15/2023 Followup testing Care Teams (unrecognized sec tion and content) [employer] Architect Relationship Specialty Start Date End Date Maico Jones MD [address] [place], [place] [id number] PCP - General Internal Medicine 09/26/10 Gordy Sousa MD [address] [facility] [address] [place] [address] Specialty Rope Twisting Machine Operator Orthopedics 11/13/16 Signs, Patricia J [address] [place] [address] Specialty Rope Twisting Machine Operator Infectious Diseases 11/13/16 Personal Touch [facility] 11/13/16 Microsoft Architect Relationship Specialty Start Date End Date Maico Jones MD [address] [place], [place] [id number] PCP - General Internal Medicine 09/26/10 Gordy Sousa MD [address] [address] Specialty Rope Twisting Machine Operator Orthopedics 11/13/16 Signs, Patricia J [address] [place] [address] Specialty Rope Twisting Machine Operator Infectious Diseases 11/13/16 Personal Touch [facility] 11/13/16 [employer] Architect Relationship Specialty Start Date End Date Maico Jones MD [address] [place], [place] [id number] PCP - General Internal Medicine 09/26/10 Gordy Sousa MD [address] [place] [address] Specialty Rope Twisting Machine Operator Orthopedics 11/13/16 Patricia Greco [address] [place] [place] [address] Specialty Rope Twisting Machine Operator Infectious Diseases 11/13/16 Personal Touch [facility] 11/13/16 [employer] Architect Relationship Specialty Start Date End Date Maico Jones MD [address] [facility] [place] [address] PCP - General Internal Medicine 09/26/10 Gordy Sousa MD [address] [place] [address] Specialty Rope Twisting Machine Operator Orthopedics 11/13/16 Patricia Greco [address] [place] [place] [address] Specialty Rope Twisting Machine Operator Infectious Diseases 11/13/16 Personal Touch [facility] 11/13/16 [employer] Architect Relationship Specialty Start Date End Date Maico Jones MD [address] [facility] [place] [address] PCP - General Internal Medicine 09/26/10 Gordy Sousa MD [address] [place] [address] Specialty Rope Twisting Machine Operator Orthopedics 11/13/16 Patricia Greco MD Specialty Rope Twisting Machine Operator Infectious Diseases 11/13/16 Personal Touch [facility] 11/13/16 [employer] Architect Relationship Specialty Start Date End Date Maico Jones MD [address] [facility] [place] [address] PCP - General Internal Medicine 09/26/10 Gordy Sousa MD [address] [place] [address] Specialty Rope Twisting Machine Operator Orthopedics 11/13/16 Patricia Greco MD Specialty Rope Twisting Machine Operator Infectious Diseases 11/13/16 Personal Touch [facility] 11/13/16 Microsoft Architect Relationship Specialty Start Date End Date Maico Jones MD [address] [place] [address] PCP - General Internal Medicine 09/26/10 Gordy Sousa MD [address] [place], [place] [id number] Specialty Rope Twisting Machine Operator Orthopedics 11/13/16 Patricia Greco MD Specialty Rope Twisting Machine Operator Infectious Diseases 11/13/16 Personal Touch [facility] 11/13/16 Microsoft Architect Relationship Specialty Start Date End Date Sarah Brantley, QUALITY PROCESS AUDITOR.BOXING INSPECTOR [address] [place] [address] PCP - General Family Practice 06/02/22 Gordy Sousa MD [address] [place], [place] [id number] Specialty Rope Twisting Machine Operator Orthopedics 11/13/16 Patricia Greco MD Specialty Rope Twisting Machine Operator Infectious Diseases 11/13/16 Personal Touch [facility] 11/13/16 Microsoft Architect Relationship Specialty Start Date End Date BrantleySarah, QUALITY PROCESS AUDITOR - BOXING INSPECTOR [address] [place] [id number] PCP - General Family Nurse Practitioner 03/01/23 Microsoft Architect Relationship Specialty Start Date End Date Sarah Brantley, QUALITY PROCESS AUDITOR - BOXING INSPECTOR [address] [place] [address] PCP - General Family Nurse Practitioner 03/01/23 Microsoft Architect Relationship Specialty Start Date End Date Sarah Brantley, QUALITY PROCESS AUDITOR - BOXING INSPECTOR [address] [place] [address] PCP - General Family Nurse Practitioner 03/01/23 FOR RECORDS PERTAINING TO PATIENTS WHO ARE OR HAVE BEEN ENROLLED IN A CHEMICAL DEPENDENCY/SUBSTANCEABUSE PROGRAM, SOME INFORMATION MAY BE OMITTED. This clinical summary was aggregated from multiple sources. Caution should be exercised in using it in the provision of clinical care. This summary normalizes information from multiple sources, and as a consequence, information in this document may materially change the coding, format and clinical context of patient data. In addition, data may be omitted in some cases. CLINICAL DECISIONS SHOULD BE BASED ON THE PRIMARY CLINICAL RECORDS. [facility], [facility]. provides no warranty or guarantee of the accuracy or completeness of information in this document.
== END | disposition home or self-care (01) ==
LOC: CVS 13:45
PROVIDERS: PCP Family Medicine; Referring Provider Physician Assistant; Visit Provider Physician Assistant
DX: Z48.812 Encounter for surgical aftercare following surgery on the circulatory system (principal); I65.21 Occlusion and stenosis of right carotid artery
CPT/HCPCS: 93880

== ENCOUNTER 2024-01-18 14:57 | Outpatient (RCR) | payer MEDICARE, MEDICAID, SELFPAY ==
[2024-01-18 10:40] VITALS: BP 166/76; PULSE 76; RESP 18; TEMP 36.1; BMI 44.6
--- NOTE | 2024-01-18 11:28 | HP.PCM_ITS ---
History of Present Illness Date of Service: 01/18/24 Chief Complaint: Nonhealing infected diabetic ulcers left foot s/p left BKA. History of Wound: 68-year-old male with history of left BKA and right partial first ray amputation in setting of diabetic neuropathy, chronic renal disease, peripheral arterial disease presents with recurrent ulceration to the right partial first ray amputation site and distal tuft of the second digit. Patient was resides in SNF and denies any constitutional symptoms or pain at current. No other complaints. Patient notes that he has been weightbearing only for transfer purposes on his heel. He does not use any protective device when he does this. [facility] Medical History Acute CVA (cerebrovascular accident) Acute osteomyelitis of metatarsal bone of right foot Alcohol abuse Alcoholism in recovery Anxiety Arthritis Atherosclerosis of coronary artery of knik heart without angina pectoris Carotid stenosis with cerebral infarction less than 8 weeks ago Charcot's joint of foot due to diabetes Chest pain Chronic cough Chronic renal failure, stage 3 (moderate) COPD (chronic obstructive pulmonary disease) Depression Diabetes mellitus with diabetic polyneuropathy Diabetic foot ulcer associated with type 2 diabetes mellitus Diabetic infection of right foot Diabetic neuropathy associated with type 2 diabetes mellitus Emphysema, unspecified Enlarged RV (right ventricle) Essential hypertension Former smoker GERD (gastroesophageal reflux disease) GI bleed Grade I diastolic dysfunction Hallux limitus of right foot History of edema History of renal disease Hx of diabetic foot ulcer Hyperlipidemia Hypothyroidism Insulin dependent diabetes mellitus Lives in intermediate Loss of hearing Morbid obesity New left bundle branch block Non-compliance Non-pressure chronic ulcer of other part of right foot with fat layer exposed Non-pressure chronic ulcer of other part of right foot with necrosis of muscle CECILE treated with BiPAP Osteoarthritis Osteomyelitis of ankle or foot, right, acute Osteoporosis Physical debility prostate problems Pulmonary hypertension Recurrent infections SARS-CoV-2 positive Shortness of breath on exertion Substance abuse Super obesity TIA (transient ischemic attack) Type 2 diabetes mellitus with foot ulcer Uses wheelchair Venous stasis dermatitis Vitamin deficiency Home Medications fluticasone propionate 50 mcg/actuation nasal spray,suspension (Flonase Allergy Relief) 2 spray intranasal DAILY PRN PRN Sinus Congestion 02/14/18 [History Last Taken 10/05/22] bupropion HCl 150 mg tablet,12 hr sustained-release 150 mg PO BID DEPRESSION 03/21/20 [History Last Taken 02/09/23] duloxetine 60 mg capsule,delayed release 60 mg PO QHS DEPRESSION 03/21/20 [History Last Taken 11/29/22 08:00] levothyroxine 75 mcg tablet 225 mcg PO DAILY@0600 thyroid 04/21/20 [History Last Taken 02/09/23] ergocalciferol (vitamin D2) 1,250 mcg (50,000 unit) capsule (Vitamin D2) 50,000 unit PO TH Check with primary doctor 06/09/22 [History Last Taken 11/26/22] albuterol sulfate 90 mcg/actuation aerosol inhaler (ProAir HFA) 2 inh inhalation Q4H PRN shortness of breath or wheezing #6.7 grams 06/13/22 [Rx Last Taken 10/04/22] aspirin 81 mg chewable tablet 81 mg PO BREAKFAST heart health 10/05/22 [History Last Taken 09/15/23] atorvastatin 80 mg tablet 80 mg PO QHS cholesterol 10/05/22 [History Last Taken 11/28/22 22:00] clopidogrel 75 mg tablet 75 mg PO QHS blood thinner 10/05/22 [History Last Taken 02/08/23] acetaminophen 325 mg tablet (Tylenol) 650 mg (2 x 325 mg) PO Q6H PRN PRN Pain 1- 10 Or Fever>100.7 #30 tabs 10/09/22 [Rx Last Taken Unknown] bisacodyl 10 mg rectal suppository 10 mg OR DAILY PRN Constipation 11/29/22 [History Last Taken Unknown] folic acid 1 mg tablet 1 mg PO DAILY Check with primary doctor 11/29/22 [History Last Taken 11/29/22 08:00] ascorbic acid (vitamin C) 500 mg tablet (Vitamin C) 500 mg PO DAILY supplement 11/30/22 [History Last Taken 11/29/22] cyanocobalamin (vitamin B-12) 500 mcg tablet (Vitamin B-12) 500 mcg PO DAILY supplement 11/30/22 [History Last Taken 11/29/22] lisinopril 10 mg tablet 10 mg PO DAILY bp 11/30/22 [History Last Taken 02/09/23] multivitamin,tx-minerals 1 tab PO DAILY health maintance 11/30/22 [History Last Taken 11/30/22] oxybutynin chloride 5 mg tablet,extended release 24 hr 5 mg PO QHS bladder spasms 11/30/22 [History Last Taken 11/30/22] ropinirole 0.25 mg tablet 0.25 mg PO BID rls 11/30/22 [History Last Taken 02/09/23] magnesium hydroxide 400 mg/5 mL oral suspension (Milk of Magnesia) 30 ml PO DAILY PRN Constipation 12/31/22 [History Last Taken Unknown] trazodone 50 mg tablet 50 mg PO QHS 12/31/22 [History Last Taken Unknown] insulin glargine 100 unit/mL (3 mL) subcutaneous pen (Lantus Solostar U-100 Insulin) 60 unit subcut BID blood sugar 03/04/23 [History Last Taken Unknown] metoprolol succinate 50 mg tablet,extended release 24 hr 50 mg PO DAILY 03/04/23 [History Last Taken Unknown] pantoprazole 40 mg tablet,delayed release 40 mg PO DAILY stomach 03/04/23 [History Last Taken Unknown] escitalopram oxalate 5 mg tablet 5 mg PO DAILY 04/14/23 [History Last Taken Unknown] isosorbide mononitrate 30 mg tablet,extended release 24 hr 30 mg PO DAILY #30 tabs 04/14/23 [Rx Last Taken Unknown] loratadine 10 mg tablet 10 mg PO DAILY 04/14/23 [History Last Taken Unknown] dulaglutide 1.5 mg/0.5 mL subcutaneous pen injector (Trulicity) 1.5 mg subcut QWEEK blood sugar 07/26/23 [History Last Taken Unknown] gabapentin 300 mg capsule 300 mg PO QHS 07/26/23 [History Last Taken Unknown] insulin lispro 100 unit/mL subcutaneous pen 15 unit subcut TID 07/26/23 [History Last Taken Unknown] ticagrelor 90 mg tablet (Brilinta) 90 mg PO BID 09/15/23 [History Last Taken 09/15/23] oxycodone 5 mg tablet 5 mg PO Q8H PRN PRN Pain Score 4-10 3 days #9 tabs 09/16/23 [Rx Last Taken Unknown] Allergy/AdvReac Type Severity Reaction Status Date / Time No Known Allergies Allergy Verified 11/09/23 14:20 Family History Mother Arthritis Diabetes Hypertension High cholesterol Osteoporosis Sister Breast cancer Cancer High cholesterol Brother Lung cancer High cholesterol Father Hypertension High cholesterol Surgical History Amputation below knee Below knee amputation History of left heart catheterization (~2005) History of right heart catheterization (~2005) Partial nontraumatic amputation of left foot Social History household members: none housing: apartment Smoking Status: Former smoker how long ago did patient quit smokin year ago alcohol intake: former year quit: 1996 substance use type: does not use caffeine: No ROS Constitutional Constitutional: Denies body ache(s), change in weight or fever(s) Eyes Eyes: Denies acute decrease in peripheral vision, change in eye color or change in vision ENT HEENT: Denies abnormal hearing, bleeding gums or dysphagia Cardiovascular Cardiovascular: Denies abdominal bloating, abdominal edema or bluish discol oration of hand/feet Respiratory/Chest Respiratory/Chest: Denies change in mental status, change in phlegm color or difficulty clearing secretions Gastrointestinal Gastrointestinal: Denies anorexia, belching or coffee ground emesis Vital Signs Vital Signs Vital Signs: 01/18/24 10:40 Temperature 97 F L Temperature Source Temporal Pulse Rate 76 Respiratory Rate 18 Blood Pressure 166/76 H Blood Pressure Mean 106 Blood Pressure Source Monitor Blood Pressure Position Semi-Fowlers Blood Pressure Location Left Arm Weight Weight: 145.15 kg Body Mass Index (BMI) 44.6 Physical Exam Narrative Vascular: Dorsalis pedis posterior tibial pulses diminished right lower extremity. Atrophic skin changes noted. Neurologic: Diminished light touch protective station intact entire right foot. Dermatologic: Full-thickness wound to the dorsal partial first ray amputation site. Stable granular base postdebridement. No deep probing or undermining. No acute signs of infection. New onset wound to the distal tuft of the right second toe. This wound demonstrated callus predebridement with significant periwound erythema edema and warmth. No deep probing or undermining postdebridement. No evidence of purulent drainage. Musculoskeletal: BKA noted on left lower extremity. Hammertoe to right second toe. This is a wound forming deformity. Partial first ray amputation noted. Muscular strength full. Const alert and oriented x3 Debridement Note Debridement Note Post-Debridement Measurements and Additional Note: Post-Debridement Measurements/Treatment WC - Nurse 1 - General Ulcer Assessment Start: 01/18/24 10:35 Freq: Status: Active Protocol: RAMY Activity Type Activity Date Activity User E-sign Co-sign Detail Recorded Client Recorded Date Recorded By Document 01/18/24 10:40 [employer] 01/18/24 10:43 RB 01/18/24 10:40 - Today's Visit Information Type of service Follow-up Visit (Physician/LEAD ORACLE DEVELOPER ) Arrival Mode Wheelchair Transfer Assistance None Patient Identification Verified (Name & Yes ) Patient Requires Transmission-Based No Precautions Height and Weight Height 5 ft 11 in Weight 145.15 kg Weight in Pounds 320.0 lbs Body Mass Index (BMI) 44.6 BMI Classification Obese BSA - Ran 2.58 Vital Signs Temperature (97.8 F-99.1 F) 97 F L Temperature Source Temporal Pulse Rate (60-100) 76 Pulse Location Monitor Respiratory Rate (12-18) 18 Respiratory rate source Observation Blood Pressure (90/60-120/80) 166/76 H Blood Pressure Mean 106 Source Monitor Position Semi-Fowlers Blood Pressure Location Left Arm History Since Last Visit- (Skip if this is Patient's initial visit) Have you changed medications since your No last visit? Any new allergies or adverse reactions No Had a fall/change in ADL's that may No increase risk of falls Signs or symptoms of abuse and/or No neglect since last visit Have you been in the hospital since your No last visit? Has dressing in place as prescribed Yes Has compression in place as prescribed No Has offloadiing in place as prescribed No Experienced any changes in pain level or No management Pain Scale: 0-10 Numeric Is Patient Pain Free? Yes - Nurse 1 - General Ulcer Measurement Start: 01/18/24 10:35 Freq: Status: Active Protocol: Activity Type Activity Date Activity User E-sign Co-sign Detail Recorded Client Recorded Date Recorded By Document 01/18/24 10:40 [place] [employer] 01/18/24 10:43 [place] 01/18/24 10:40 Wound Center Nurse 1 2. R medial foot 1st digit -Combined with other wound No -Current Size (cm) - Length 0.1 -Current Size (cm) - Width 0.3 -Current Size (cm) - Depth 0.3 -Total Square Cm 0.03 -Photo Taken Yes -Tunneling No -Undermining/Tunneling No -Circular Undermining No -Exudate Amt Medium -Exudate Type Serosanguineous -Wound Margin Thickened -Granulation Amt Medium (34-66%) -Granulation Quality [place] -Slough/Fibrin Yes -Necrosis Amt Medium (34-66%) -Necrotic Tissue Type Adherent Slough -Structure Exposed N/A -Texture (Jolly-wound Skin Appearance) Assessed, Scarring -Moisture (Jolly-wound Skin Appearance) Assessed,Dry/ Scaly -Color (Jolly-wound Skin Appearance) Assessed -Temperature (Jolly-wound Skin No Abnormality Appearance) (Pt Warm) -Tenderness on Palpation (Jolly-wound No Skin Appearance) -Ulcer Cleansing Wound Cleanser -Foul Odor after Cleansing No -Anesthetic Used 5% Lidocaine Gel WC - Nurse 2 - General Ulcer CM Notes Start: 01/18/24 10:35 Freq: Status: Active Protocol: Activity Type Activity Date Activity User E-sign Co-sign Detail Recorded Client Recorded Date Recorded By Document 01/18/24 11:06 AWAIS Laptop 01/18/24 11:10 AWAIS Edit Result 01/18/24 11:06 AWAIS (1) Laptop 01/18/24 11:12 AWAIS (1) 3-right 2nd toe - Post Debridement (cm) - Length => 0.3 - Post Debridement (cm) - Width => 0.4 - Post Debridement (cm) - Depth => 0.1 - Total Square (Post) (cm) => 0.12 - Area of Debridement (cm) - Length => 0.3 - Area of Debridement (cm) - Width => 0.4 - Total Square (Area) (cm) => 0.12 2. R medial foot 1st digit - Post Debridement (cm) - Length => 0.6 - Post Debridement (cm) - Width => 0.2 - Post Debridement (cm) - Depth => 0.2 - Total Square (Post) (cm) => 0.12 - Area of Debridement (cm) - Length => 0.6 - Area of Debridement (cm) - Width => 0.2 - Total Square (Area) (cm) => 0.12 01/18/24 11:06 Wound Center Nurse 2 3-right 2nd toe -Time 11:07 -Correct Patient Yes -Correct Side, Site, Position Yes -Correct Procedure Yes -Procedure Performed Yes -Type of Procedure Debridement -Clinical Debridement Subcutaneous -Tissue Removed Subcutaneous -Post Debridement (cm) - Length 0.3 -Post Debridement (cm) - Width 0.4 -Post Debridement (cm) - Depth 0.1 -Total Square (Post) (cm) 0.12 -Area of Debridement (cm) - Length 0.3 -Area of Debridement (cm) - Width 0.4 -Total Square (Area) (cm) 0.12 -Tunneling No -Undermining/Tunneling No -Circular Undermining No -Wound/Ulcer Outcome Not Healed -Ulcer Cleansing Rinsed/ Irrigated with Saline -Foul Odor after Cleansing No -Bioengineered Tissue No -Bleeding Controlled with Pressure -Treatment Response Procedure Tolerated Well -Offloading Yes -Type of Offloading Surgical Shoe -Debridement - Subq, 1st 20sq cm Yes 2. R medial foot 1st digit -Time 11:07 -Correct Patient Yes -Correct Side, Site, Position Yes -Correct Procedure Yes -Procedure Performed Yes -Type of Procedure Debridement -Clinical Debridement Subcutaneous -Tissue Removed Subcutaneous -Post Debridement (cm) - Length 0.6 -Post Debridement (cm) - Width 0.2 -Post Debridement (cm) - Depth 0.2 -Total Square (Post) (cm) 0.12 -Area of Debridement (cm) - Length 0.6 -Area of Debridement (cm) - Width 0.2 -Total Square (Area) (cm) 0.12 -Tunneling No -Undermining/Tunneling No -Circular Undermining No -Wound/Ulcer Outcome Not Healed -Ulcer Cleansing Rinsed/ Irrigated with Saline -Foul Odor after Cleansing No -Bioengineered Tissue No -Bleeding Controlled with Pressure -Treatment Response Procedure Not Tolerated Well -Offloading No -Debridement - Subq, 1st 20sq cm No Pain Scale: 0-10 Numeric Is Patient Pain Free? Yes Assessment/Plan Assessment/Plan (1) Cellulitis of right toe: CODE(S): L03.031 - Cellulitis of right toe PLAN: Exam performed. New onset wound to the distal tuft right second toe with cellulitis. Right second toe and partial first ray amputation site wounds were excisionally debrided down to including level of subcutaneous tissue of all nonviable tissue using a 15 blade without incident. Patient tolerated procedure well. No anesthesia due to neuropathy. Pre and postdebridement measurements document nursing notes. Hemostasis obtained with light compression. Right second toe was flushed and cultured. Patient started on p.o. doxycycline. Patient will dress the partial first ray amputation site with hydrogel and second toe wound with Betadine and DSD daily per SNF. Patient will now offload right foot during transferring with a surgical shoe. Patient will follow-up in 1 week. Will consider flexor tenotomy right second toe. (2) Type 2 diabetes mellitus with diabetic polyneuropathy: CODE(S): E11.42 - Type 2 diabetes mellitus with diabetic polyneuropathy (3) Non-pressure chronic ulcer of other part of right foot with fat layer exposed: CODE(S): L97.512 - Non-pressure chronic ulcer of other part of right foot with fat layer exposed
--- NOTE | 2024-01-24 13:19 | WC ---
3.19.24 RT MED 1 DIGIT FT
== END 2024-01-30 23:59 | disposition home or self-care (01) ==
LOC: WC 14:57
PROVIDERS: PCP Family Medicine; Referring Provider Podiatrist; Visit Provider Podiatrist
DX: E11.621 Type 2 diabetes mellitus with foot ulcer (principal); L97.529 Non-pressure chronic ulcer of other part of left foot with unspecified severity; L97.512 Non-pressure chronic ulcer of other part of right foot with fat layer exposed; Z89.512 Acquired absence of left leg below knee; J43.9 Emphysema, unspecified; Z79.4 Long term (current) use of insulin; E11.42 Type 2 diabetes mellitus with diabetic polyneuropathy; E11.22 Type 2 diabetes mellitus with diabetic chronic kidney disease; E11.51 Type 2 diabetes mellitus with diabetic peripheral angiopathy without gangrene; N18.30 Chronic kidney disease, stage 3 unspecified; I25.10 Atherosclerotic heart disease of native coronary artery without angina pectoris; Z87.891 Personal history of nicotine dependence; I12.9 Hypertensive chronic kidney disease with stage 1 through stage 4 chronic kidney disease, or unspecified chronic kidney disease; E78.5 Hyperlipidemia, unspecified; L03.031 Cellulitis of right toe; Z79.899 Other long term (current) drug therapy; M20.41 Other hammer toe(s) (acquired), right foot
CPT/HCPCS: 11042; 87070; 87075; 87077; 87186; 87205; 99214; G0463

== ENCOUNTER 2024-02-08 11:32 | Outpatient (RCR) | payer MEDICARE, MEDICAID, SELFPAY ==
[2024-01-31 00:07] VITALS: BP 166/76; PULSE 76; RESP 18; TEMP 36.1; BMI 44.6
[2024-02-08 11:37] VITALS: BP 143/86; PULSE 71; RESP 18; TEMP 36.6; BMI 44.6
--- NOTE | 2024-02-08 12:04 | PCM.WC.PN ---
History of Present Illness Date of Service: 02/08/24 Chief Complaint: Nonhealing infected diabetic ulcers left foot s/p left BKA. History of Wound: 68-year-old male with history of left BKA and right partial first ray amputation in setting of diabetic neuropathy, chronic renal disease, peripheral arterial disease presents with recurrent ulceration to the right partial first ray amputation site and distal tuft of the second digit. Patient was resides in SNF and denies any constitutional symptoms or pain at current. No other complaints. Patient notes that he has been weightbearing only for transfer purposes on his heel. He does not use any protective device when he does this. Progress of Wound: Right partial first ray amputation wound healed. Residual distal tuft right second toe wound noted. This is secondary to hammertoe contracture. Objective Data Objective Data Vital Signs: Vital Signs Temp Pulse Resp BP 98 F 71 18 143/86 H 02/08/24 11:37 02/08/24 11:37 02/08/24 11:37 02/08/24 11:37 Weight: 145.15 kg Body Mass Index (BMI) 44.6 Physical Exam Narrative Vascular: Dorsalis pedis posterior tibial pulses diminished right lower extremity. Atrophic skin changes noted. Neurologic: Diminished light touch protective station intact entire right foot. Dermatologic: Healed wound to the dorsal partial first ray amputation site. Continued wound to the distal tuft of the right second toe. This wound demonstrated callus predebridement, no acute signs of infection. Stable granular base postdebridement. Pre and postdebridement measurements documented nursing notes. Musculoskeletal: BKA noted on left lower extremity. Hammertoe to right second toe, semirigid. This is a wound forming deformity. Partial first ray amputation noted. Muscular strength full. Const alert and oriented x3 Debridement Note Debridement Note Post-Debridement Measurements and Additional Note: Post-Debridement Measurements/Treatment - Nurse 1 - General Ulcer Assessment Start: 02/08/24 11:36 Freq: Status: Active Protocol: RAMY Activity Type Activity Date Activity User E-sign Co-sign Detail Recorded Client Recorded Date Recorded By Document 02/08/24 11:37 MT Desktop 02/08/24 11:44 MT 02/08/24 11:37 - Today's Visit Information Type of service Follow-up Visit (Physician/CONDITIONER TENDER ) Arrival Mode Ambulatory, Wheelchair Accompanied by nurse aid Patient Identification Verified (Name & Yes ) Safety Precautions Fall Prevention Finger Stick Blood Sugar(mg/dl) (if 140 indicated): Blood Sugar Stated by Patient Height and Weight Body Mass Index (BMI) 44.6 BMI Classification Obese Vital Signs Temperature (97.8 F-99.1 F) 98 F Temperature Source Temporal Pulse Rate (60-100) 71 Pulse Location Monitor Respiratory Rate (12-18) 18 Respiratory rate source Observation Blood Pressure (90/60-120/80) 143/86 H Blood Pressure Mean (mm Hg) 105 Source Monitor Position Sitting Blood Pressure Location Right Arm History Since Last Visit- (Skip if this is Patient's initial visit) Has dressing in place as prescribed Yes Has compression in place as prescribed Yes Left Footwear Regular Shoe Right Footwear Regular Shoe Pain Scale: 0-10 Numeric Is Patient Pain Free? Yes WC - Nurse 1 - General Ulcer Measurement Start: 02/08/24 11:36 Freq: Status: Active Protocol: Activity Type Activity Date Activity User E-sign Co-sign Detail Recorded Client Recorded Date Recorded By Document 02/08/24 11:37 TX Desktop 02/08/24 11:44 TX 02/08/24 11:37 Wound Center Nurse 1 2. R medial foot 1st digit -Current Size (cm) - Length 0.1 -Current Size (cm) - Width 0.1 -Current Size (cm) - Depth 0.1 -Total Square Cm 0.01 -Wound Margin Flat & Intact -Slough/Fibrin No -Texture (Jolly-wound Skin Appearance) Assessed,Callus -Moisture (Jolly-wound Skin Appearance) Assessed -Color (Jolly-wound Skin Appearance) Assessed -Temperature (Jolly-wound Skin No Abnormality Appearance) (Pt Warm) -Tenderness on Palpation (Jolly-wound No Skin Appearance) -Ulcer Cleansing Soap and Water -Foul Odor after Cleansing No -Anesthetic Used 5% Lidocaine Gel 3-right 2nd toe -Current Size (cm) - Length 0.1 -Current Size (cm) - Width 0.1 -Current Size (cm) - Depth 0.1 -Total Square Cm 0.01 -Date of Last Picture (Recall this 02/08/24 field) -Photo Taken Yes -Tunneling No -Undermining/Tunneling No -Circular Undermining No -Exudate Amt None Present -Wound Margin Flat & Intact -Texture (Jolly-wound Skin Appearance) Assessed,Callus -Moisture (Jolly-wound Skin Appearance) Assessed -Color (Jolly-wound Skin Appearance) Assessed -Temperature (Jolly-wound Skin No Abnormality Appearance) (Pt Warm) -Tenderness on Palpation (Jolly-wound No Skin Appearance) -Ulcer Cleansing Soap and Water -Foul Odor after Cleansing No -Anesthetic Used 5% Lidocaine Gel WC - Nurse 2 - General Ulcer CM Notes Start: 02/08/24 11:36 Freq: Status: Active Protocol: Activity Type Activity Date Activity User E-sign Co-sign Detail Recorded Client Recorded Date Recorded By Document 02/08/24 11:56 Laptop 02/08/24 11:58 02/08/24 11:56 Wound Center Nurse 2 2. R medial foot 1st digit -Correct Patient No -Correct Side, Site, Position No -Correct Procedure No -Procedure Performed No -Post Debridement (cm) - Length 0 -Post Debridement (cm) - Width 0 -Post Debridement (cm) - Depth 0 -Total Square (Post) (cm) 0 -Area of Debridement (cm) - Length 0 -Area of Debridement (cm) - Width 0 -Total Square (Area) (cm) 0 -Wound/Ulcer Outcome Healed- Epithelialized 3-right 2nd toe -Time 11:57 -Correct Patient Yes -Correct Side, Site, Position Yes -Correct Procedure Yes -Procedure Performed Yes -Type of Procedure Debridement -Clinical Debridement Subcutaneous -Tissue Removed Subcutaneous -Post Debridement (cm) - Length 0.2 -Post Debridement (cm) - Width 0.2 -Post Debridement (cm) - Depth 0.1 -Total Square (Post) (cm) 0.04 -Area of Debridement (cm) - Length 0.2 -Area of Debridement (cm) - Width 0.2 -Total Square (Area) (cm) 0.04 -Tunneling No -Undermining/Tunneling No -Circular Undermining No -Wound/Ulcer Outcome Not Healed -Ulcer Cleansing Rinsed/ Irrigated with Saline -Foul Odor after Cleansing No -Bioengineered Tissue No -Bleeding Controlled with Pressure -Treatment Response Procedure Tolerated Well -Offloading Yes -Type of Offloading Surgical Shoe -Debridement - Subq, 1st 20sq cm Yes Pain Scale: 0-10 Numeric Is Patient Pain Free? Yes Assessment/Plan Assessment/Plan (1) Type 2 diabetes mellitus with diabetic polyneuropathy: CODE(S): E11.42 - Type 2 diabetes mellitus with diabetic polyneuropathy PLAN: Exam performed. Right partial first amputation wound healed. Residual right second toe distal tuft wound noted. The cause of this wound is a rigid hammertoe contracture. Right distal tuft second toe wound excisionally debrided down to including level of subcutaneous tissue of all nonviable tissue using a #15 blade without incident. Patient tolerated procedure well. Topical anesthesia used. Hemostasis obtained with light compression. Pre and postdebridement measurements documented nursing notes. Due to right second toe being a rigid hammertoe contracture decision was made for flexor tenotomy to help mobilize second toe and limit shear force and distal tuft of the toe leading to neuropathic ulceration. Patient was orally consented, right second toe was prepped with Betadine paint. No anesthesia used due to neuropathy. A #11 blade was used to make a percutaneous incision to the plantar aspect of the right second toe proximal interphalangeal joint. Patient was asked to curl his toes and the flexor tendon to the second toe was tenotomized. There is no be reduction of the deformity post tenotomy. Site was flushed with saline. Due to small stab incision no suture was required for additional closure. Patient will continue ambulation. Transfer with heel weightbearing or in surgical shoe. Continue Betadine DSD for drainage daily dressing changes. Will plan to order diabetic shoes upon follow-up and resolution of wound. (2) Cellulitis of right toe: CODE(S): L03.031 - Cellulitis of right toe (3) Other hammer toe(s) (acquired), right foot: CODE(S): M20.41 - Other hammer toe(s) (acquired), right foot (4) Non-pressure chronic ulcer of other part of right foot with fat layer exposed: CODE(S): L97.512 - Non-pressure chronic ulcer of other part of right foot with fat layer exposed
--- NOTE | 2024-02-11 09:56 | WC ---
4.9.24 RT MED FT
--- NOTE | 2024-02-11 09:59 | WC ---
4.9.24 RT 2ND TOE
== END 2024-02-29 23:59 | disposition home or self-care (01) ==
LOC: WC 11:32
PROVIDERS: PCP Family Medicine; Referring Provider Podiatrist; Visit Provider Podiatrist
DX: E11.621 Type 2 diabetes mellitus with foot ulcer (principal); L97.512 Non-pressure chronic ulcer of other part of right foot with fat layer exposed; Z89.512 Acquired absence of left leg below knee; E11.51 Type 2 diabetes mellitus with diabetic peripheral angiopathy without gangrene; E11.42 Type 2 diabetes mellitus with diabetic polyneuropathy; E11.22 Type 2 diabetes mellitus with diabetic chronic kidney disease; N18.9 Chronic kidney disease, unspecified; M20.41 Other hammer toe(s) (acquired), right foot
CPT/HCPCS: 11042

== ENCOUNTER → 2024-04-17 | Outpatient (CLI) | payer MEDICARE, MEDICAID, SELFPAY ==
--- NOTE | 2024-04-17 14:21 | CDU_ITS ---
Reason For Study: HX Rt ICA/CCA Stent Rt. Velocities/BP Lt. Velocities/BP Prox CCA 67.0/11.8 cm/sec. Prox CCA 145.4/15.7 cm/sec. Mid CCA 73.2/20.4 cm/sec. Mid CCA 130.8/12.1 cm/sec. Stent noted from Dist CCA - Prox ICA. Dist CCA 128.9/17.5 cm/sec. Rt Pre Stent - 76.0/17.5 cm/sec Prox ICA 103.4/26.7 cm/sec. Rt Prox Stent - 72.3/15.7 cm/sec Mid ICA 97.9/26.7 cm/sec. Rt Mid Stent - 161.6/36.4 cm/sec Dist ICA 59.7/17.9 cm/sec. Rt Dist Stent - 153.7/37.1 cm/sec Lt. ICA/CCA = 0.8. Rt Post Stent - 101.1/22.5 cm/sec. Prox ECA 145.4/10.2 cm/sec. Mid ICA 114.6/26.2 cm/sec. Unable to visualize Vert A. Dist ICA 82.5/22.0 cm/sec. Rt. ICA/CCA = 2.2. Prox ECA 544.1/68.1 cm/sec. Rt. Vert. 38.8/9.3 cm/sec. Right Extracranial There is intimal thickening but no significant atherosclerotic plaque noted in the right common carotid artery. There is heterogeneous, irregular atherosclerotic plaque noted in the right internal carotid artery. Stent noted from Dist CCA to Prox ICA. There is heterogeneous, irregular atherosclerotic plaque noted in the right external carotid artery. Antegrade flow is noted in the right vertebral artery. Left Extracranial There is homogeneous, smooth atherosclerotic plaque noted in the left common carotid artery. The left internal carotid artery is not adequately visualized to characterize plaque. The left external carotid artery is not well visualized. The left vertebral artery could not be visualized. Procedure Carotid Duplex [id number]. This is a Carotid Duplex examination using B-mode, color flow and specral Doppler. The exam was diagnostic. Technically difficult due to patient positioning and body habitus. Exam performed in department. VL/Carotid Duplex Ultrasound Interpretation Summary Mild (<70%) stenosis right extracranial internal carotid stent. Mild (<50%) stenosis left extracranial internal carotid. The Right vertebral is patent and antegrade. Left vertebral artery is not visualized Ordering Physician: Alysa Santiago Referring Physician: Domo Blake Performed By: Phil Montesinos RVT and Student
== END | disposition home or self-care (01) ==
LOC: CVS 14:21
PROVIDERS: PCP Family Medicine; Visit Provider Physician Assistant
DX: I65.21 Occlusion and stenosis of right carotid artery (principal); Z48.812 Encounter for surgical aftercare following surgery on the circulatory system
CPT/HCPCS: 93880

== ENCOUNTER 2024-11-17 14:07 | Outpatient (CLI) | payer MEDICARE, MEDICAID, SELFPAY ==
[2024-11-17 15:28] LABS: Absolute Lymphocyte Count 2.71 X10^3/uL (0.83-4.51); Absolute Neutrophil Count 7.4 X10^3/uL (2.0-7.7); Basophil% 0.9 % (0-1); Eosinophil# 0.16 X10^3/uL; Eosinophils% 1.4 % (0-5); Hematocrit 47.8 % (40-54); Hemoglobin 15.9 g/dL (13.0-16.5); Lymphocyte # 2.71 X10^3/ul (0.83-4.51); Lymphocyte % 23.3 % (19-41); Mean Corp Hgb Conc 33.3 g/dL (32-36); Mean Corpuscular Hgb 28.8 pg (27.0-32.0); Mean Corpuscular Volume 86.4 fL (80-94); Mean Platelet Vol. 10.7 fl (6.2-12.0); Monocyte# 1.16 X10^3/uL; NRBC Flagged by Analyzer 0 % (0-5); Neutrophil # 7.42 X10^3/uL (2.7-7.7); Neutrophil % 63.9 % (47-70); Platelet Count 257 K/mm3 (150-450); RBC Distribution Width CV 14.8 % (11.6-14.6); RBC Distribution Width SD 46.4 fl (35.1-43.9); RET-HE 31.6 pg (30-35); Red Blood Count 5.53 M/mm3 (4.6-6.2); Reticulocyte Count 1.45 % (0.5-1.5); White Blood Count 11.6 K/mm3 (4.4-11.0)
[2024-11-17 16:11] LABS: Erythrocyte Sedimentation Rate 47 mm/hr (0-20)
[2024-11-17 16:14] LABS: Amylase 57 U/L (25-115); Ferritin 125 ng/mL (26-388); Iron 33 ug/dL (65-175); Iron Binding Capacity,Total 349 ug/dL (250-450); LDH 178 U/L (87-241); Lipase 17 U/L (13-75); Thyroid Stim Hormone (TSH) < 0.005 uIU/mL (0.358-3.740)
[2024-11-20 09:56] LABS: Vitamin B12 704 pg/mL (211-911)
[2024-11-21 13:07] LABS: Albumin 3.2 g/dL (2.9-4.4); Alpha-1-Globulins 0.3 g/dL (0.0-0.4); Alpha-2-Globulins 1.2 g/dL (0.4-1.0); Cytoplasmic Ab (C-ANCA) <1:20 titer (Neg:<1:20); Endomysial Antibody IgA Negative (Negative); Gamma Globulin 1.2 g/dL (0.4-1.8); Immunoglobulin A 510 mg/dL (61-437); Immunoglobulin G 1164 mg/dL (603-1613); Immunoglobulin M 50 mg/dL (20-172); Perinuclear Ab (P-ANCA) <1:20 titer (Neg:<1:20); t-Transglutaminase IgA <2 U/mL (0-3)
[2024-11-23 18:07] LABS: Anti-Centromere B Ab <0.2 AI (0.0-0.9); Anti-Chromatin 0.2 AI (0.0-0.9); Anti-Jo <0.2 AI (0.0-0.9); Anti-Scleroderma-70 AB <0.2 AI (0.0-0.9); Anti-dsDNA Ab 6 IU/mL (0-9); Beef <0.10 kU/L (Class 0); Chocolate <0.10 kU/L (Class 0); Codfish <0.10 kU/L (Class 0); Corn <0.10 kU/L (Class 0); Egg, Whole <0.10 kU/L (Class 0); Milk (Cow) <0.10 kU/L (Class 0); Mussels <0.10 kU/L (Class 0); Peanut <0.10 kU/L (Class 0); Pork <0.10 kU/L (Class 0); RNP Ab <0.2 AI (0.0-0.9); SJOGREN'S Anti-SS-A test 0.2 AI (0.0-0.9); SJOGREN'S Anti-SS-B test < 0.2 AI (0.0-0.9); Salmon <0.10 kU/L (Class 0); Shrimp 0.27 kU/L (Class 0/I); Smith Ab <0.2 AI (0.0-0.9); Soybean <0.10 kU/L (Class 0); Tuna <0.10 kU/L (Class 0); Wheat <0.10 kU/L (Class 0)
== END 2024-11-17 23:59 | disposition home or self-care (01) ==
LOC: LAB 14:11
PROVIDERS: PCP Family Medicine; Referring Provider Internal Medicine Gastroenterology; Visit Provider Internal Medicine Gastroenterology
DX: R19.7 Diarrhea, unspecified (principal); D64.9 Anemia, unspecified; E03.9 Hypothyroidism, unspecified
CPT/HCPCS: 36415; 82150; 82607; 82728; 82784; 83516; 83540; 83550; 83615; 83690; 84165; 84439; 84443; 85025; 85045; 85652; 86003; 86005; 86037; 86140; 86225; 86235; 86255; 86334

== ENCOUNTER → 2024-11-22 | Outpatient (CLI) | payer MEDICARE, MEDICAID, SELFPAY ==
--- NOTE | 2024-11-22 13:30 | CDU_ITS ---
Reason For Study: S/P Right TCAR Rt. Velocities/BP Lt. Velocities/BP Prox CCA 49.4/11.6 cm/sec. Prox CCA 86.3/10.7 cm/sec. Mid CCA 61.7/15.4 cm/sec. Mid CCA 88.1/9.7 cm/sec. Distal CCA, prox stent, 50.4/12.6 Dist CCA 80.6/10.7 cm/sec. cm/sec. Prox ICA 81.5/27.7 cm/sec. Bulb, mid stent, 149.9/38 cm/sec. Mid ICA 45.6/17.3 cm/sec. Prox ICA, distal stent, 128/29.2 cm/sec. Dist ICA 55.1/17.3 cm/sec. Mid ICA 53.1/16.8 cm/sec. Lt. ICA/CCA = 0.93. Dist ICA 63/15.7 cm/sec. Prox ECA 97.6/8.8 cm/sec. Rt. ICA/CCA = 2.43. Lt. Vert. 39/12.6 cm/sec. Prox ECA 393.5/56.1 cm/sec. Rt. Vert. 46.6/12.6 cm/sec. Right Extracranial There is intimal thickening but no significant atherosclerotic plaque noted in the right common carotid artery. There is heterogeneous, irregular atherosclerotic plaque noted in the right internal carotid artery. Stent noted CCA distal - ICA prox. There is heterogeneous, irregular atherosclerotic plaque noted in the right external carotid artery. Antegrade flow is noted in the right vertebral artery. Left Extracranial There is homogeneous, smooth atherosclerotic plaque noted in the left common carotid artery. There is heterogeneous, irregular atherosclerotic plaque noted in the left internal carotid artery. There is heterogeneous, irregular atherosclerotic plaque noted in the left external carotid artery. Antegrade flow is noted in the left vertebral artery. Procedure This is a Carotid Duplex examination using B-mode, color flow and specral Doppler. Carotid Duplex [id number]. Exam performed in department. VL/Carotid Duplex Ultrasound Interpretation Summary Mild (<70%) stenosis right extracranial internal carotid stent Mild (<50%) stenosis left extracranial internal carotid. Patent and antegrade vertebrals bilaterally. Ordering Physician: Alysa Santiago Referring Physician: Domo Blake Performed By: Shi Ann RVT
== END | disposition home or self-care (01) ==
LOC: CVS 13:29
PROVIDERS: PCP Family Medicine; Referring Provider Physician Assistant; Visit Provider Physician Assistant
DX: I65.21 Occlusion and stenosis of right carotid artery (principal)
CPT/HCPCS: 93880

== ENCOUNTER → 2025-01-12 | Outpatient (CLI) | payer MEDICARE, MEDICAID, SELFPAY ==
[2025-01-18 01:07] LABS: Pancreatic Elastase, Fecal 348 (>200)
[2025-01-18 07:07] LABS: Calprotectin, Stool 86 ug/g (0-120); Fats, Neutral Normal (.); Fats, Total Normal (.)
== END | disposition home or self-care (01) ==
PROVIDERS: PCP Family Medicine; Referring Provider Internal Medicine Gastroenterology; Visit Provider Internal Medicine Gastroenterology
DX: K58.0 Irritable bowel syndrome with diarrhea (principal)
CPT/HCPCS: 82274; 82653; 82705; 83630; 83993; 87177; 87209; 87329; 87493

== ENCOUNTER 2025-01-22 10:58 | Day surgery (SDC) | payer MEDICARE, MEDICAID, SELFPAY ==
--- NOTE | 2025-01-17 09:28 | PAT.ANESEVAL ---
Pre-Assessment Diagnosis/Proposed Procedure Planned Operative Procedure(s): EGD Anesthesia History Anesthesia History - damper maker: Anesthesia History - damper maker Hx Hospitalization No 01/17/25 08:23 Any Problems With Anesthesia No 01/17/25 08:23 Cholinesterase deficiency No 01/17/25 08:23 You/Your Family Experience No 01/17/25 08:23 fever (hyperthermia) with Relationship Recent Exposure to Contagious No 06/01/23 09:44 Disease Does patient have nerve No 01/17/25 08:23 stimulator Patient instructed to have device shut off --Does patient have Pacemaker or ICD? When Was Last Pacemaker Check QUESTION #4 FULL TEXT: You/Your Family Experience fever (hyperthermia) with Anesthesia Last Oral Intake Last Oral intake: Last Oral Intake NPO since Meds taken in AM with sips of water? Meds patient instructed to take am of surgery PONV PONV - damper maker: PONV - damper maker Female No 01/17/25 08:23 HX of Motion Sickness No 01/17/25 08:23 HX of N/V After Surgery No 01/17/25 08:23 Non-Smoker Yes 01/17/25 08:23 Duration of Surgery greater No 01/17/25 08:23 than 60 minutes Number of Risk Factors 1 01/17/25 08:23 PONV Score Low Risk 01/17/25 08:23 Height & Weight Height & Weight: Anesthesia: Height & Weight Height 5 ft 11 in 10/24/24 10:04 Respiratory Assessment Respiratory Assessment - damper maker: Respiratory Tract Infection Hx - damper maker Hx Respiratory Tract Infection No 01/17/25 08:23 STOP Sleep Apnea STOP Sleep Apnea - damper maker: STOP Sleep Apnea - damper maker Hx Hypertension Yes 01/17/25 08:23 Hx Sleep Apnea Yes 01/17/25 08:23 CPAP No 01/17/25 08:23 BIPAP Yes 01/17/25 08:23 Do you snore loudly (louder than talking or can be heard Do you often feel tired/ fatigued/ sleepy during daytime? Has anyone observed you stop breathing during sleep? STOP Results Positive 01/17/25 08:23 QUESTION #5 FULL TEXT : Do you snore loudly (louder than talking or can be heard through closed doors)? 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 Specify any problems Hx of Preganancy in last 3 N/A 01/17/25 08:23 Months Nurse Filling Out Transfusion NBUCHER 01/17/25 08:23 & Questions: Date: 01/17/25 01/17/25 08:23 Time: 08:01/17/25 08:23 Patient unable to answer at this time (ie. confused, unrespo /Reproduction History /Reproductive History - damper maker: /Reproductive Hx- damper maker Hx Now Gestational Age (in weeks): EDC: Hx Hx Para Hx Section SAB No 06/01/23 09:44 PFSH Medical History Wears glasses Wears partial dentures Alcohol use Marijuana use Thyroid disease Low iron Anemia High cholesterol Restless legs Back pain Stroke/cerebrovascular accident BiPAP (biphasic positive airway pressure) dependence Sleep apnea Hoarseness History of heart attack MRSA (methicillin resistant staph aureus) culture positive Essential hypertension Atherosclerosis of coronary artery of inupiat heart without angina pectoris Morbid obesity Chest pain Hx of diabetic foot ulcer SARS-CoV-2 positive Lives in [facility] Loss of hearing Substance abuse Insulin dependent diabetes mellitus Uses wheelchair History of renal disease Emphysema, unspecified COPD (chronic obstructive pulmonary disease) Shortness of breath on exertion Chronic cough History of edema Non-pressure chronic ulcer of other part of right foot with fat layer exposed GI bleed TIA (transient ischemic attack) Diabetic infection of right foot Acute osteomyelitis of metatarsal bone of right foot Type 2 diabetes mellitus with foot ulcer Diabetes mellitus with diabetic polyneuropathy Non-pressure chronic ulcer of other part of right foot with necrosis of muscle Osteomyelitis of ankle or foot, right, acute Carotid stenosis with cerebral infarction less than 8 weeks ago Acute CVA (cerebrovascular accident) Depression Anxiety Osteoporosis Former smoker Physical debility Hallux limitus of right foot Osteoarthritis Enlarged RV (right ventricle) Grade I diastolic dysfunction Pulmonary hypertension Chronic renal failure, stage 3 (moderate) Super obesity Vitamin deficiency GERD (gastroesophageal reflux disease) prostate problems Recurrent infections Arthritis Alcohol abuse Alcoholism in recovery Charcot's joint of foot due to diabetes Diabetic neuropathy associated with type 2 diabetes mellitus Venous stasis dermatitis Hyperlipidemia Non-compliance New left bundle branch block Diabetic foot ulcer associated with type 2 diabetes mellitus CECILE treated with BiPAP Hypothyroidism Home Medications ?Medication ?Instructions ?Recorded ?Last Taken ?Type fluticasone propionate 50 2 spray intranasal DAILY PRN PRN 02/14/18 10/05/22 History mcg/actuation nasal Sinus Congestion spray,suspension (Flonase Allergy Relief) bupropion HCl 150 mg tablet,12 hr 150 mg PO BID DEPRESSION 03/21/20 02/09/23 History sustained-release levothyroxine 75 mcg tablet 225 mcg PO DAILY@0600 thyroid 04/21/20 02/09/23 History albuterol sulfate 90 mcg/actuation 2 inh inhalation Q4H PRN shortness 06/13/22 10/04/22 Rx aerosol inhaler (ProAir HFA) of breath or wheezing #6.7 grams aspirin 81 mg chewable tablet 81 mg PO BREAKFAST heart health 10/05/22 09/15/23 History atorvastatin 80 mg tablet 80 mg PO QHS cholesterol 10/05/22 11/28/22 22:00 History acetaminophen 325 mg tablet 650 mg (2 x 325 mg) PO Q6H PRN PRN 10/09/22 Unknown Rx (Tylenol) Pain 1-10 Or Fever>100.7 #30 tabs bisacodyl 10 mg rectal suppository 10 mg OR DAILY PRN Constipation 11/29/22 Unknown History folic acid 1 mg tablet 1 mg PO DAILY Check with primary 11/29/22 11/29/22 08:00 History doctor ascorbic acid (vitamin C) 500 mg 500 mg PO DAILY supplement 11/30/22 11/29/22 History tablet (Vitamin C) cyanocobalamin (vitamin B-12) 500 500 mcg PO DAILY supplement 11/30/22 11/29/22 History mcg tablet (Vitamin B-12) lisinopril 10 mg tablet 10 mg PO DAILY bp 11/30/22 02/09/23 History multivitamin,tx-minerals 1 tab PO DAILY health maintance 11/30/22 11/30/22 History oxybutynin chloride 5 mg 5 mg PO QHS bladder spasms 11/30/22 11/30/22 History tablet,extended release 24 hr ropinirole 0.25 mg tablet 0.25 mg PO BID rls 11/30/22 02/09/23 History magnesium hydroxide 400 mg/5 mL 30 ml PO DAILY PRN Constipation 12/31/22 Unknown History oral suspension (Milk of Magnesia) trazodone 50 mg tablet 50 mg PO QHS 12/31/22 Unknown History insulin glargine 100 unit/mL (3 60 unit subcut .QAM blood sugar 03/04/23 Unknown History mL) subcutaneous pen (Lantus Solostar U-100 Insulin) metoprolol succinate 50 mg 50 mg PO QHS 03/04/23 Unknown History tablet,extended release 24 hr pantoprazole 40 mg tablet,delayed 40 mg PO QHS stomach 03/04/23 Unknown History release isosorbide mononitrate 30 mg 30 mg PO DAILY #30 tabs 04/14/23 Unknown Rx tablet,extended release 24 hr loratadine 10 mg tablet 10 mg PO DAILY 04/14/23 Unknown History gabapentin 300 mg capsule 300 mg PO QHS 07/26/23 Unknown History buspirone 10 mg tablet 10 mg PO TID 06/21/24 Unknown History cyclobenzaprine 7.5 mg tablet 7.5 mg PO Q8H PRN 06/21/24 Unknown History dulaglutide 1.5 mg/0.5 mL 3 mg subcut QWEEK blood sugar 10/24/24 01/12/25 History subcutaneous pen injector (Trulicity) ergocalciferol (vitamin D2) 50 mcg 50 mcg PO QDAY 10/24/24 Unknown History (2,000 unit) capsule dicyclomine 20 mg tablet 20 mg PO .QAM 01/16/25 Unknown History Allergy/AdvReac Type Severity Reaction Status Date / Time No Known Allergies Allergy Verified 01/17/25 08:20 Family History Mother Arthritis Diabetes Hypertension High cholesterol Osteoporosis Sister Breast cancer Cancer High cholesterol Brother Lung cancer High cholesterol Father Hypertension High cholesterol Surgical History History of right heart catheterization (~2005) History of left heart catheterization (~2005) 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 Sinus rhythm with sinus arrhythmia with first-degree AV block. Nonspecific ST abnormalities. No significant change from June 11, 2022. Stress test pertinent findings: June 11, 2022. Ejection fraction 70%. Moderate degree of ischemia involving the distal anterior wall and apex cannot be excluded. Echo (EF%) pertinent findings: June 09, 2022. Ejection fraction of 55%. Aortic valve is not well-visualized. Heart catheterization pertinent findings: February 09, 2023. Patient has separate ostia for the LAD and left circumflex. The RCA has the D1 filling via collaterals from the OM1. There is 80% stenosis in the proximal obtuse marginal 2. And 30% stenosis to the distal RCA. Consult pertinent findings: October 24, 2024. Dr. Ely. 1. Coronary artery disease without angina-chronic. Patient is to continue medical therapy at this time. 2. Hypertension?chronic. Well-controlled. Recommendation Anesthesia Recommendation Anesthesia recommendation: OPTIMIZED for anesthesia
--- NOTE | 2025-01-17 09:55 | PAT.ANE_ITS ---
Pre-Assessment Diagnosis/Proposed Procedure Planned Operative Procedure(s): EGD Anesthesia History Anesthesia History - quill stripper: Anesthesia History - quill stripper Hx Hospitalization No 01/17/25 08:23 Any Problems With Anesthesia No 01/17/25 08:23 Cholinesterase deficiency No 01/17/25 08:23 You/Your Family Experience No 01/17/25 08:23 fever (hyperthermia) with Relationship Recent Exposure to Contagious No 06/01/23 09:44 Disease Does patient have nerve No 01/17/25 08:23 stimulator Patient instructed to have device shut off --Does patient have Pacemaker or ICD? When Was Last Pacemaker Check QUESTION #4 FULL TEXT: You/Your Family Experience fever (hyperthermia) with Anesthesia Last Oral Intake Last Oral intake: Last Oral Intake NPO since Meds taken in AM with sips of water? Meds patient instructed to take am of surgery PONV PONV - quill stripper: PONV - quill stripper Female No 01/17/25 08:23 HX of Motion Sickness No 01/17/25 08:23 HX of N/V After Surgery No 01/17/25 08:23 Non-Smoker Yes 01/17/25 08:23 Duration of Surgery greater No 01/17/25 08:23 than 60 minutes Number of Risk Factors 1 01/17/25 08:23 PONV Score Low Risk 01/17/25 08:23 Height & Weight Height & Weight: Anesthesia: Height & Weight Height 5 ft 11 in 10/24/24 10:04 Respiratory Assessment Respiratory Assessment - quill stripper: Respiratory Tract Infection Hx - quill stripper Hx Respiratory Tract Infection No 01/17/25 08:23 STOP Sleep Apnea STOP Sleep Apnea - quill stripper: STOP Sleep Apnea - quill stripper Hx Hypertension Yes 01/17/25 08:23 Hx Sleep Apnea Yes 01/17/25 08:23 CPAP No 01/17/25 08:23 BIPAP Yes 01/17/25 08:23 Do you snore loudly (louder than talking or can be heard Do you often feel tired/ fatigued/ sleepy during daytime? Has anyone observed you stop breathing during sleep? STOP Results Positive 01/17/25 08:23 QUESTION #5 FULL TEXT : Do you snore loudly (louder than talking or can be heard through closed doors)? 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 Specify any problems Hx of Preganancy in last 3 N/A 01/17/25 08:23 Months Nurse Filling Out Transfusion NBUCHER 01/17/25 08:23 & Questions: Date: 01/17/25 01/17/25 08:23 Time: 08:01/17/25 08:23 Patient unable to answer at this time (ie. confused, unrespo /Reproduction History /Reproductive History - quill stripper: /Reproductive Hx- quill stripper Hx Now Gestational Age (in weeks): EDC: Hx Hx Para Hx Section SAB No 06/01/23 09:44 PFSH Medical History Wears glasses Wears partial dentures Alcohol use Marijuana use Thyroid disease Low iron Anemia High cholesterol Restless legs Back pain Stroke/cerebrovascular accident BiPAP (biphasic positive airway pressure) dependence Sleep apnea Hoarseness History of heart attack MRSA (methicillin resistant staph aureus) culture positive Essential hypertension Atherosclerosis of coronary artery of [place] heart without angina pectoris Morbid obesity Chest pain Hx of diabetic foot ulcer SARS-CoV-2 positive Lives in long term Loss of hearing Substance abuse Insulin dependent diabetes mellitus Uses wheelchair History of renal disease Emphysema, unspecified COPD (chronic obstructive pulmonary disease) Shortness of breath on exertion Chronic cough History of edema Non-pressure chronic ulcer of other part of right foot with fat layer exposed GI bleed TIA (transient ischemic attack) Diabetic infection of right foot Acute osteomyelitis of metatarsal bone of right foot Type 2 diabetes mellitus with foot ulcer Diabetes mellitus with diabetic polyneuropathy Non-pressure chronic ulcer of other part of right foot with necrosis of muscle Osteomyelitis of ankle or foot, right, acute Carotid stenosis with cerebral infarction less than 8 weeks ago Acute CVA (cerebrovascular accident) Depression Anxiety Osteoporosis Former smoker Physical debility Hallux limitus of right foot Osteoarthritis Enlarged RV (right ventricle) Grade I diastolic dysfunction Pulmonary hypertension Chronic renal failure, stage 3 (moderate) Super obesity Vitamin deficiency GERD (gastroesophageal reflux disease) prostate problems Recurrent infections Arthritis Alcohol abuse Alcoholism in recovery Charcot's joint of foot due to diabetes Diabetic neuropathy associated with type 2 diabetes mellitus Venous stasis dermatitis Hyperlipidemia Non-compliance New left bundle branch block Diabetic foot ulcer associated with type 2 diabetes mellitus CECILE treated with BiPAP Hypothyroidism Home Medications ?Medication ?Instructions ?Recorded ?Last Taken ?Type fluticasone propionate 50 2 spray intranasal DAILY PRN PRN 02/14/18 10/05/22 History mcg/actuation nasal Sinus Congestion spray,suspension (Flonase Allergy Relief) bupropion HCl 150 mg tablet,12 hr 150 mg PO BID DEPRES TISH 03/21/20 02/09/23 History sustained-release levothyroxine 75 mcg tablet 225 mcg PO DAILY@0600 thyr oid 04/21/20 02/09/23 History albuterol sulfate 90 mcg/actuation 2 inh inhalation Q4 H PRN shortness 06/13/22 10/04/22 Rx aerosol inhaler (ProAir HFA) of breath or wheezing #6. 7 grams aspirin 81 mg chewable tablet 81 mg PO BREAKFAST heart health 10/05/22 09/15/23 History atorvastatin 80 mg tablet 80 mg PO QHS cholesterol 03/2211/28/22 22:00 History acetaminophen 325 mg tablet 650 mg (2 x 325 mg) PO Q6H PRN PRN 10/09/22 Unknown Rx (Tylenol) Pain 1-10 Or Fever>100.7 #30 tabs bisacodyl 10 mg rectal suppository 10 mg [place] DAILY PRN Constipation 11/29/22 Unknown History folic acid 1 mg tablet 1 mg PO DAILY Check with jenny araiza 11/29/22 11/29/22 08:00 History doctor ascorbic acid (vitamin C) 500 mg 500 mg PO DAILY suppl nuvia 11/30/22 11/29/22 History tablet (Vitamin C) cyanocobalamin (vitamin B-12) 500 500 mcg PO DAILY sup plement 11/30/22 11/29/22 History mcg tablet (Vitamin B-12) lisinopril 10 mg tablet 10 mg PO DAILY bp 11/30/22 0 02/09/23 History multivitamin,tx-minerals 1 tab PO DAILY health [place] 11/30/22 11/30/22 History oxybutynin chloride 5 mg 5 mg PO QHS bladder spasms 0 11/30/22 11/30/22 History tablet,extended release 24 hr ropinirole 0.25 mg tablet 0.25 mg PO BID rls 11/30/22 02/09/23 History magnesium hydroxide 400 mg/5 mL 30 ml PO DAILY PRN Con stipation 12/31/22 Unknown History oral suspension (Milk of Magnesia) trazodone 50 mg tablet 50 mg PO QHS 12/31/22 Unknow n History insulin glargine 100 unit/mL (3 60 unit subcut .QAM bl ood sugar 03/04/23 Unknown History mL) subcutaneous pen (Lantus Solostar U-100 Insulin) metoprolol succinate 50 mg 50 mg PO QHS 03/04/23 Unkno wn History tablet,extended release 24 hr pantoprazole 40 mg tablet,delayed 40 mg PO QHS stomach 03/04/23 Unknown History release isosorbide mononitrate 30 mg 30 mg PO DAILY #30 tabs 0 04/14/23 Unknown Rx tablet,extended release 24 hr loratadine 10 mg tablet 10 mg PO DAILY 04/14/23 Unkn own History gabapentin 300 mg capsule 300 mg PO QHS 07/26/23 Unkno wn History buspirone 10 mg tablet 10 mg PO TID 06/21/24 Unknow n History cyclobenzaprine 7.5 mg tablet 7.5 mg PO Q8H PRN Unknown History dulaglutide 1.5 mg/0.5 mL 3 mg subcut QWEEK blood suga r 10/24/24 01/12/25 History subcutaneous pen injector (Trulicity) ergocalciferol (vitamin D2) 50 mcg 50 mcg PO QDAY 10/02 02/22 Unknown History (2,000 unit) capsule dicyclomine 20 mg tablet 20 mg PO .QAM 01/16/25 Unkno wn History Allergy/AdvReac Type Severity Reaction Status Date / Time No Known Allergies Allergy Verified 01/17/25 08:20 Family History Mother Arthritis Diabetes Hypertension High cholesterol Osteoporosis Sister Breast cancer Cancer High cholesterol Brother Lung cancer High cholesterol Father Hypertension High cholesterol Surgical History History of right heart catheterization (~2005) History of left heart catheterization (~2005) 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 Sinus 01/17/25 09:44 rhythm with sinus arrhythmia with first-degree AV block. Nonspecific ST abnormalities. No significant change from June 11, 2022. Stress Test Pertinent Findings Stress test pertinent findings June 11, 2022. Ejection 01/17/25 09:36 fraction 70%. Moderate degree of ischemia involving the distal anterior wall and apex cannot be excluded. Echo Pertinent Findings Echo (EF%) pertinent findings June 09, 2022. Ejection 01/17/25 09:36 fraction of 55%. Aortic valve is not well-visualized . Heart Catheterization Pertinent Findings Heart catheterization February 09, 2023. Patient has 01/17/25 09:44 pertinent findings separate ostia for the LAD and left circumflex. The RCA has the D1 filling via collaterals from the OM1. There is 80% stenosis in the proximal obtuse marginal 2. And 30% stenosis to the distal RCA. Consult Pertinent Findings Consult pertinent findings October 24, 2024. 01/17/25 09:52 Jhoana. 1. Coronary artery disease without angina- chronic. Patient is to continue medical therapy at this time. 2. Hypertension?chronic. Well-controlled. Pertinent Findings Consult pertinent findings: November 21, 2024. Dr. Ely. Patient is cleared for procedure. Recommendation Anesthesia Recommendation Anesthesia recommendation: OPTIMIZED for anesthesia
[2025-01-22] VITALS (9 sets, daily range): BP systolic 86–172; BP diastolic 52–85; PULSE 69–80; RESP 16–18; TEMP 36.1–36.7; O2SAT 93–100; BMI 44.4
--- NOTE | 2025-01-22 12:00 | EGD_PTH ---
PATIENT: ILIANA WANG LOC: EN U#:[id number] AGE/SX: 69/M ROOM: RE01/22/[address]: Dr. Tino Jones DO : 1955 BED: DIS: 01/22/2025 SPEC #: [id number] RECD: 01/23/25 14:04 STATUS: IRENE SINCERE #: [id number] ROLLY: 01/22/25 12:[address]: Tino Jones DEPT: SURGICAL PATHOLOGY RECD BY: Vasquez Cartagena ENTERED: 01/23/25 14:05 SP TYPE: EGD BIOPSY MICHAEL DR: Dr. Domo Blake MD Tissues: A - Gastric mucous membrane B - Gastric mucous membrane Procedures: Immunohistochemical Stains Surgery Specimen Level IV IHC Stain ADDITIONAL HEADER OPERATION: EGD with biopsies PRE-OP DIAGNOSIS: Diarrhea, abdominal pain TISSUE SUBMITTED: A- Gastric antrum biopsy, B- Gastric body biopsy MICROSCOPIC DIAGNOSIS A. Stomach, antrum, biopsy: * Mild chronic inflammation with features of reactive gastropathy. * IHC negative for H pylori organisms. B. Stomach, body, biopsy: * Oxyntic mucosa with chronic inflammation and focal mild active inflammation. * IHC negative for H pylori organisms. MICROSCOPIC DESCRIPTION Slides are reviewed. These tests were developed and their performance characteristics determined by [facility]. They may not have been cleared or approved by the [place]. Food and Drug Administration. The FDA has determined that such clearance or approval is not necessary. The above immunohistochemical/dualISH markers are ordered and reviewed by the Pathologist. GROSS DESCRIPTION A. Received in fixative is one container labeled with the patient's name and designated Gastric antrum biopsy. The specimen consists of two irregular fragments of light robison soft tissue that in aggregate measure 0.9 x 0.3 x 0.2 cm. The specimen is totally submitted in one cassette. B. Received in fixative is one container labeled with the patient's name and designated Gastric body biopsy. The specimen consists of two irregular fragments of light robison soft tissue that in aggregate measure 1 x 0.2 x 0.2 cm. The specimen is totally submitted in one cassette. 01/23/2025 CPT:92997q8,91358,83815
[2025-01-22 12:10] LABS: Bedside Glucose 95 mg/dL (74-106)
--- NOTE | 2025-01-22 12:44 | PCM.PRE.AN2 ---
ASA Classification* ASA Classification ASA Classification: 3 Assessment & Plan Anesthesia* Anesthesia Assessment Anesthesia Assessment: Discussed sedation and/or anesthesia options, risks, benefits, and alternatives with patient/parents/legal guardian/POA. Questions invited. The patient/parents/legal guardian/POA seems to understand and agrees to proceed with anesthesia plan. Reviewed the physical assessment, medical history, allergy history and patient home medications list prior to surgery/procedure/anesthetic and documented any changes. Performed airway and anesthesia risk assessments. Anesthesia Type Anesthesia Type: MAC History Source History Obtained from:: Patient and Chart Anesthesia Focused Assessment* Temperature: 98.1 F Pulse Rate: 69 Blood Pressure: 172/85 Respiratory Rate: 18 Pulse Ox: 100 Oxygen Delivery Method: Room Air Airway Assessment Mouth opens: >3 cm Mallampati Score: II Teeth Condition: Missing (ALL gone) Neck Range of motion (ROM): Full ROM Focused Labs Anesthesia Preop lab: CBC WBC 11.6 K/mm3 (4.4-11.0) H 11/17/24 14:27 11/17/24 RBC 5.53 M/mm3 (4.6-6.2) 11/17/24 14:27 11/17/24 Hgb 15.9 g/dL (13.0-16.5) 11/17/24 14:27 11/17/24 Hct 47.8 % (40-54) 11/17/24 14:27 11/17/24 Plt Count 257 K/mm3 (150-450) 11/17/24 14:27 11/17/24 CHEMISTRY Potassium 4.5 mmol/L (3.5-5.1) 09/15/23 06:52 09/15/23 Sodium 135 mmol/L (136-145) L 09/15/23 06:52 09/15/23 Magnesium 2.0 mg/dL (1.6-2.6) 11/29/22 20:26 11/29/22 Phosphorus 3.7 mg/dL (2.5-4.9) 06/10/22 04:42 06/10/22 BUN 29 mg/dL (7-18) H 09/15/23 06:52 09/15/23 Creatinine 1.64 mg/dL (0.70-1.30) H 09/15/23 06:52 09/15/23 Glucose 168 mg/dL (74-106) H 09/15/23 06:52 09/15/23 POC Glucose 95 mg/dL (74-106) 01/22/25 11:45 01/22/25 TSH < 0.005 uIU/mL (0.358-3.740) L 11/17/24 14:27 11/17/24 COAG PT 12.9 SECONDS (11.7-14.9) 06/09/22 06:10 06/09/22 Pre-Assessment Diagnosis/Proposed Procedure Planned Operative Procedure(s): EGD with biopsies Anesthesia History 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 When Was Last Pacemaker Check QUESTION #4 FULL TEXT: You/Your Family Experience fever (hyperthermia) with Anesthesia Any additional information?: No Last Oral Intake Last Oral intake: Last Oral Intake NPO since Meds taken in AM with sips of Yes 01/22/25 11:24 water? 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 Female No 01/17/25 08:23 HX of Motion Sickness No 01/17/25 08:23 HX of N/V After Surgery No 01/17/25 08:23 Non-Smoker Yes 01/17/25 08:23 Duration of Surgery greater No 01/17/25 08:23 than 60 minutes Number of Risk Factors 1 01/17/25 08:23 PONV Score Low Risk 01/17/25 08:23 Any additional information?: No Height & Weight Height & Weight: Anesthesia: Height & Weight Height 5 ft 11 in 01/22/25 11:24 Weight: 144.5 kg 01/22/25 11:24 Body Mass Index (BMI) 44.4 01/22/25 11:24 Respiratory Assessment Respiratory Assessment - 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 Has anyone observed you stop breathing during sleep? STOP Results Positive 01/17/25 08:23 QUESTION #5 FULL TEXT : Do you snore loudly (louder than talking or can be heard through closed doors)? 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 Tobacco Use Cigarettes 06/01/23 09:44 Smoking Status Former smoker 01/17/25 08:23 Hx Tobacco Use No 01/17/25 08:23 Years Smoking 20 01/17/25 08:23 Packs Smoked per Day 1 01/17/25 08:23 Smoking Cessation Date was No - quit smoking greater 01/17/25 08:23 within the last 15 years than 15 years ago Hx Smoking Cessation Date 11/01/09 01/17/25 08:23 Hx Smoking Cessation No: refused 01/17/25 08:23 Counseling Any additional information?: No Hematologic Medial History Hematologic Hx - 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 Specify any problems Hx of Preganancy in last 3 N/A 01/17/25 08:23 Months Nurse Filling Out Transfusion NBUCHER 01/17/25 08:23 & Questions: Date: 01/17/25 01/17/25 08:23 Time: 08:01/17/25 08:23 Patient unable to answer at this time (ie. 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: /Reproductive Hx- automobile upholsterer apprentice Hx Now Gestational Age (in weeks): EDC: Hx Hx Para Hx Section SAB No 06/01/23 09:44 PFS Medical History Wears glasses Wears partial dentures Alcohol use Marijuana use Thyroid disease Low iron Anemia High cholesterol Restless legs Back pain Stroke/cerebrovascular accident BiPAP (biphasic positive airway pressure) dependence Sleep apnea Hoarseness History of heart attack MRSA (methicillin resistant staph aureus) culture positive Essential hypertension Atherosclerosis of coronary artery of [place] heart without angina pectoris Morbid obesity Chest pain Hx of diabetic foot ulcer SARS-CoV-2 positive Lives in fci Loss of hearing Substance abuse Insulin dependent diabetes mellitus Uses wheelchair History of renal disease Emphysema, unspecified COPD (chronic obstructive pulmonary disease) Shortness of breath on exertion Chronic cough History of edema Non-pressure chronic ulcer of other part of right foot with fat layer exposed GI bleed TIA (transient ischemic attack) Diabetic infection of right foot Acute osteomyelitis of metatarsal bone of right foot Type 2 diabetes mellitus with foot ulcer Diabetes mellitus with diabetic polyneuropathy Non-pressure chronic ulcer of other part of right foot with necrosis of muscle Osteomyelitis of ankle or foot, right, acute Carotid stenosis with cerebral infarction less than 8 weeks ago Acute CVA (cerebrovascular accident) Depression Anxiety Osteoporosis Former smoker Physical debility Hallux limitus of right foot Osteoarthritis Enlarged RV (right ventricle) Grade I diastolic dysfunction Pulmonary hypertension Chronic renal failure, stage 3 (moderate) Super obesity Vitamin deficiency GERD (gastroesophageal reflux disease) prostate problems Recurrent infections Arthritis Alcohol abuse Alcoholism in recovery Charcot's joint of foot due to diabetes Diabetic neuropathy associated with type 2 diabetes mellitus Venous stasis dermatitis Hyperlipidemia Non-compliance New left bundle branch block Diabetic foot ulcer associated with type 2 diabetes mellitus CECILE treated with BiPAP Hypothyroidism Home Medications ?Medication ?Instructions ?Recorded ?Last Taken ?Type fluticasone propionate 50 2 spray intranasal DAILY PRN PRN 02/14/18 10/05/22 History mcg/actuation nasal Sinus Congestion spray,suspension (Flonase Allergy Relief) bupropion HCl 150 mg tablet,12 hr 150 mg PO BID DEPRESSION 03/21/20 01/22/25 History sustained-release levothyroxine 75 mcg tablet 225 mcg PO DAILY@0600 thyroid 04/21/20 01/22/25 History albuterol sulfate 90 mcg/actuation 2 inh inhalation Q4H PRN shortness 06/13/22 10/04/22 Rx aerosol inhaler (ProAir HFA) of breath or wheezing #6.7 grams aspirin 81 mg chewable tablet 81 mg PO BREAKFAST heart health 10/05/22 01/20/25 History atorvastatin 80 mg tablet 80 mg PO QHS cholesterol 10/05/22 11/28/22 22:00 History acetaminophen 325 mg tablet 650 mg (2 x 325 mg) PO Q6H PRN PRN 10/09/22 Unknown Rx (Tylenol) Pain 1-10 Or Fever>100.7 #30 tabs bisacodyl 10 mg rectal suppository 10 mg [place] DAILY PRN Constipation 11/29/22 Unknown History folic acid 1 mg tablet 1 mg PO DAILY Check with primary 11/29/22 11/29/22 08:00 History doctor ascorbic acid (vitamin C) 500 mg 500 mg PO DAILY supplement 11/30/22 11/29/22 History tablet (Vitamin C) cyanocobalamin (vitamin B-12) 500 500 mcg PO DAILY supplement 11/30/22 11/29/22 History mcg tablet (Vitamin B-12) lisinopril 10 mg tablet 10 mg PO DAILY bp 11/30/22 01/22/25 History multivitamin,tx-minerals 1 tab PO DAILY health maintance 11/30/22 11/30/22 History oxybutynin chloride 5 mg 5 mg PO QHS bladder spasms 11/30/22 11/30/22 History tablet,extended release 24 hr ropinirole 0.25 mg tablet 0.25 mg PO BID rls 11/30/22 02/09/23 History magnesium hydroxide 400 mg/5 mL 30 ml PO DAILY PRN Constipation 12/31/22 Unknown History oral suspension (Milk of Magnesia) trazodone 50 mg tablet 50 mg PO QHS 12/31/22 Unknown History insulin glargine 100 unit/mL (3 60 unit subcut .QAM blood sugar 03/04/23 Unknown History mL) subcutaneous pen (Lantus Solostar U-100 Insulin) metoprolol succinate 50 mg 50 mg PO QHS 03/04/23 01/21/25 History tablet,extended release 24 hr pantoprazole 40 mg tablet,delayed 40 mg PO QHS stomach 03/04/23 Unknown History release isosorbide mononitrate 30 mg 30 mg PO DAILY #30 tabs 04/14/23 01/21/25 Rx tablet,extended release 24 hr loratadine 10 mg tablet 10 mg PO DAILY 04/14/23 Unknown History gabapentin 300 mg capsule 300 mg PO QHS 07/26/23 Unknown History buspirone 10 mg tablet 10 mg PO TID 06/21/24 01/22/25 History cyclobenzaprine 7.5 mg tablet 7.5 mg PO Q8H PRN 06/21/24 Unknown History dulaglutide 1.5 mg/0.5 mL 3 mg subcut QWEEK blood sugar 10/24/24 01/12/25 History subcutaneous pen injector (Trulicity) ergocalciferol (vitamin D2) 50 mcg 50 mcg PO QDAY 10/24/24 Unknown History (2,000 unit) capsule dicyclomine 20 mg tablet 20 mg PO .QAM 01/16/25 Unknown History Allergy/AdvReac Type Severity Reaction Status Date / Time No Known Allergies Allergy Verified 01/22/25 11:19 Family History Mother Arthritis Diabetes Hypertension High cholesterol Osteoporosis Sister Breast cancer Cancer High cholesterol Brother Lung cancer High cholesterol Father Hypertension High cholesterol Surgical History History of right heart catheterization (~2005) History of left heart catheterization (~2005) 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 ENT HEENT: Reports change in voice, post nasal drip, sinus pain, sinus pressure and sore throat
--- NOTE | 2025-01-22 12:59 | HP.PCM_ITS ---
HPI - General General Date of Admission: 01/22/25 Date of Service: 01/22/25 Chief Complaint: abdominal pain HPI Narrative ILIANA WANG, is a 69 M who presents today for the endoscopic evaluation of abdominal pain. OV 9.17.24- Patient has a PMHx of diabetes, CKD,HTN, HLD, and COPD. He resides in residential. He is here today to discuss need for a colonoscopy. When he made this appointment he was having abdominal pain and diarrhea. He cut out dairy and since then he has been doing well. He does have baseline diarrhea but he is no longer having pain with it. He thinks he may be lactose intolerant. His last colonoscopy was over 10 years ago and he is unsure of those results.At this time he would prefer to do a Cologuard test and then a colonoscopy if indicated. He denies constipation, heartburn, or melena. 08.25.24- Cologuard negative OV 1..24- Patient complaining of postprandial abdominal pain and diarrhea. States he has pain every time he eats that will last until he goes to sleep. Denies nausea, vomiting or heartburn. Will have several loose BMs daily without urgency.. Denies bloody or dark stools. Will sometimes have the urge to go but cant. Also complaining of increased gas and bloating. [facility] Medical History Wears glasses Wears partial dentures Alcohol use Marijuana use Thyroid disease Low iron Anemia High cholesterol Restless legs Back pain Stroke/cerebrovascular accident BiPAP (biphasic positive airway pressure) dependence Sleep apnea Hoarseness History of heart attack MRSA (methicillin resistant staph aureus) culture positive Essential hypertension Atherosclerosis of coronary artery of [place] heart without angina pectoris Morbid obesity Chest pain Hx of diabetic foot ulcer SARS-CoV-2 positive Lives in residential Loss of hearing Substance abuse Insulin dependent diabetes mellitus Uses wheelchair History of renal disease Emphysema, unspecified COPD (chronic obstructive pulmonary disease) Shortness of breath on exertion Chronic cough History of edema Non-pressure chronic ulcer of other part of right foot with fat layer exposed GI bleed TIA (transient ischemic attack) Diabetic infection of right foot Acute osteomyelitis of metatarsal bone of right foot Type 2 diabetes mellitus with foot ulcer Diabetes mellitus with diabetic polyneuropathy Non-pressure chronic ulcer of other part of right foot with necrosis of muscle Osteomyelitis of ankle or foot, right, acute Carotid stenosis with cerebral infarction less than 8 weeks ago Acute CVA (cerebrovascular accident) Depression Anxiety Osteoporosis Former smoker Physical debility Hallux limitus of right foot Osteoarthritis Enlarged RV (right ventricle) Grade I diastolic dysfunction Pulmonary hypertension Chronic renal failure, stage 3 (moderate) Super obesity Vitamin deficiency GERD (gastroesophageal reflux disease) prostate problems Recurrent infections Arthritis Alcohol abuse Alcoholism in recovery Charcot's joint of foot due to diabetes Diabetic neuropathy associated with type 2 diabetes mellitus Venous stasis dermatitis Hyperlipidemia Non-compliance New left bundle branch block Diabetic foot ulcer associated with type 2 diabetes mellitus CECILE treated with BiPAP Hypothyroidism Home Medications ?Medication ?Instructions ?Recorded ?Last Taken ?Type fluticasone propionate 50 2 spray intranasal DAILY PRN PRN 02/14/18 10/05/22 History mcg/actuation nasal Sinus Congestion spray,suspension (Flonase Allergy Relief) bupropion HCl 150 mg tablet,12 hr 150 mg PO BID DEPRES TISH 03/21/20 01/22/25 History sustained-release levothyroxine 75 mcg tablet 225 mcg PO DAILY@0600 thyr oid 04/21/20 01/22/25 History albuterol sulfate 90 mcg/actuation 2 inh inhalation Q4 H PRN shortness 06/13/22 10/04/22 Rx aerosol inhaler (ProAir HFA) of breath or wheezing #6. 7 grams aspirin 81 mg chewable tablet 81 mg PO BREAKFAST heart health 10/05/22 01/20/25 History atorvastatin 80 mg tablet 80 mg PO QHS cholesterol 03/2211/28/22 22:00 History acetaminophen 325 mg tablet 650 mg (2 x 325 mg) PO Q6H PRN PRN 10/09/22 Unknown Rx (Tylenol) Pain 1-10 Or Fever>100.7 #30 tabs bisacodyl 10 mg rectal suppository 10 mg MD DAILY PRN Constipation 11/29/22 Unknown History folic acid 1 mg tablet 1 mg PO DAILY Check with jenny araiza 11/29/22 11/29/22 08:00 History doctor ascorbic acid (vitamin C) 500 mg 500 mg PO DAILY suppl ement 11/30/22 11/29/22 History tablet (Vitamin C) cyanocobalamin (vitamin B-12) 500 500 mcg PO DAILY sup plement 11/30/22 11/29/22 History mcg tablet (Vitamin B-12) lisinopril 10 mg tablet 10 mg PO DAILY bp 11/30/22 0 01/22/25 History multivitamin,tx-minerals 1 tab PO DAILY [facility] 11/30/22 11/30/22 History oxybutynin chloride 5 mg 5 mg PO QHS bladder spasms 0 11/30/22 11/30/22 History tablet,extended release 24 hr ropinirole 0.25 mg tablet 0.25 mg PO BID rls 11/30/22 02/09/23 History magnesium hydroxide 400 mg/5 mL 30 ml PO DAILY PRN Con stipation 12/31/22 Unknown History oral suspension (Milk of Magnesia) trazodone 50 mg tablet 50 mg PO QHS 12/31/22 Unknow n History insulin glargine 100 unit/mL (3 60 unit subcut .QAM bl ood sugar 03/04/23 Unknown History mL) subcutaneous pen (Lantus Solostar U-100 Insulin) metoprolol succinate 50 mg 50 mg PO QHS 03/04/2301/21 History tablet,extended release 24 hr pantoprazole 40 mg tablet,delayed 40 mg PO QHS stomach 03/04/23 Unknown History release isosorbide mononitrate 30 mg 30 mg PO DAILY #30 tabs 0 04/14/23 01/21/25 Rx tablet,extended release 24 hr loratadine 10 mg tablet 10 mg PO DAILY 04/14/23 Unkn own History gabapentin 300 mg capsule 300 mg PO QHS 07/26/23 Unkno wn History buspirone 10 mg tablet 10 mg PO TID 06/21/24 History cyclobenzaprine 7.5 mg tablet 7.5 mg PO Q8H PRN Unknown History dulaglutide 1.5 mg/0.5 mL 3 mg subcut QWEEK blood suga r 10/24/24 01/12/25 History subcutaneous pen injector (Trulicity) ergocalciferol (vitamin D2) 50 mcg 50 mcg PO QDAY 10/02 02/22 Unknown History (2,000 unit) capsule dicyclomine 20 mg tablet 20 mg PO .QAM 01/16/25 Unkno wn History Allergy/AdvReac Type Severity Reaction Status Date / Time No Known Allergies Allergy Verified 01/22/25 11:19 Family History Mother Arthritis Diabetes Hypertension High cholesterol Osteoporosis Sister Breast cancer Cancer High cholesterol Brother Lung cancer High cholesterol Father Hypertension High cholesterol Surgical History History of right heart catheterization (~2005) History of left heart catheterization (~2005) 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 Social History household members: none housing: apartment Smoking Status: Former smoker how long ago did patient quit smokin year ago alcohol intake: former year quit: 1996 substance use type: does not use caffeine: No ROS Constitutional Constitutional: Denies fatigue, fever(s), poor appetite, weight gain or weight loss Gastrointestinal Gastrointestinal: Denies belching, bloating, change in bowel habits, change in stool character, chewing difficulty, coffee ground emesis, constipation, cramping, diarrhea, dyspepsia, dysphagia, early satiety, excessive flatus, fecal incontinence, heartburn, hematemesis, hematochezia, hemorrhoids, loose stools, melena, nausea, odynophagia, rectal bleeding, tenesmus, vomiting or weight changes Vital Signs Vital Signs Vital Signs: 01/22/25 11:24 01/22/25 11:24 01/22/25 12:53 Temperature 98.1 F 98.1 F Temperature Source Temporal Pulse Rate 69 69 Respiratory Rate 18 18 Respiratory Pattern Normal Blood Pressure 172/85 H 172/85 H Blood Pressure Mean 114 Blood Pressure Source Monitor Blood Pressure Position Sitting Blood Pressure Location Left Arm Pulse Ox 100 100 Oxygen Delivery Method Room Air Room Air Weight Weight: 318 lb 9.087 oz Body Mass Index (BMI) 44.4 Physical Exam Const alert, oriented x3, no apparent distress and healthy appearing General Appearance: cooperative GI normal to inspection, nondistended, normoactive bowel sounds, soft to palpation, non-tender and non-distended Percussion: normal to percussion Rectal Exam: deferred Results Lab / Micro Data Labs: Laboratory Results - last 24 hr 01/22/25 11:45: POC Glucose 95 Assessment & Plan Assessment/Plan (1) Diarrhea: (2) Abdominal pain: PLAN: Assessment and Plan Assessment and Plan (1) Diarrhea: Status: Acute Plan: Patient is 68 yo male with PMHx pertinnent for diabetes, COPD, HLD, HTN and CKD. He is here today to discuss colonoscopy. For a few months he was having abdominal pain and diarrhea. About two weeks ago he cut our dairy and this has improved his symptoms.. His last colonoscopy was over 10 years ago. Since he is no longer having symptoms he wanted to do a Cologuard test. His Cologuard was negative. He is having a lot abdominal pain and diarrhea still. He still does not want to have a colonoscopy. We will start with a CT scan abdomen pelvis along with inflammatory markers and stool test. Orders: Orders Abdomen/Pelvis WITH Contrast Today R19.7 - Diarrhea, unspecified Stool Lactoferrin/WBC Today K58.9 - Irritable bowel syndrome, unspecified, R19.7 - Diarrhea, unspecified Fecal Fat, Qualitative Today R19.7 - Diarrhea, unspecified Stool Occult Blood iFOB Today R19.7 - Diarrhea, unspecified Calprotectin, Stool Today R19.7 - Diarrhea, unspecified Pancreatic Elastase, Fecal Today R19.7 - Diarrhea, unspecified OVA+PARA w/Giardia EIA [id number] Today R19.7 - Diarrhea, unspecified CDIFF (PCR) Today R19.7 - Diarrhea, unspecified ENTERIC PATHOGEN PANEL STOOL Today K58.9 - Irritable bowel syndrome, unspecified, R19.7 - Diarrhea, unspecified CRP Today R19.7 - Diarrhea, unspecified Thyroid Stim Hormone (TSH) Today R19.7 - Diarrhea, unspecified Vitamin B12 Today R19.7 - Diarrhea, unspecified T4 Free Direct Today E03.9 - Hypothyroidism, unspecified, R19.7 - Diarrhea, unspecified Erythrocyte Sed Rate Today R19.7 - Diarrhea, unspecified CBC W/Diff, Automated Today D64.9 - Anemia, unspecified, R19.7 - Diarrhea, unspecified Ferritin Today D64.9 - Anemia, unspecified, R19.7 - Diarrhea, unspecified ALLISON + Protein Elect, Serum Today R19.7 - Diarrhea, unspecified Iron Binding Capacity,Total Today D64.9 - Anemia, unspecified, R19.7 - Diarrhea, unspecified Retic Panel Count Today R19.7 - Diarrhea, unspecified Iron Today D64.9 - Anemia, unspecified, R19.7 - Diarrhea, unspecified Celiac Disease Profile Today R19.7 - Diarrhea, unspecified LDH Today R19.7 - Diarrhea, unspecified Allergen, Food Profile 14 Today R19.7 - Diarrhea, unspecified ANCA Today R19.7 - Diarrhea, unspecified MINGO Comprehensive Panel Today R19.7 - Diarrhea, unspecified Amylase Today R19.7 - Diarrhea, unspecified Lipase Today R19.7 - Diarrhea, unspecified
--- NOTE | 2025-01-22 13:21 | OP.EGD_ITS ---
Patient Name: Andrei Christopher Procedure Date: 01/22/2025 12:58 PM Date of : 1955 Age: 69 Procedure: Upper GI endoscopy Indications: Epigastric abdominal pain Providers: Tino Jones DO Medicines: Monitored Anesthesia Care Patient Profile: This is a 69 year old male. Refer to note in patient chart for documentation of history and physical. Patient has symptoms of acute epigastric abdominal pain. Complications: No immediate complications. Procedure: Pre-Anesthesia Assessment: - Prior to the procedure, a History and Physical was performed, and patient medications and allergies were reviewed. The patient is competent. The risks and benefits of the procedure and the sedation options and risks were discussed with the patient. All questions were answered and informed consent was obtained. Patient identification and proposed procedure were verified by the physician in the pre-procedure area. Mental Status Examination: alert and oriented. Airway Examination: normal oropharyngeal airway and neck mobility. Respiratory Examination: clear to auscultation. CV Examination: normal. Prophylactic Antibiotics: The patient does not require prophylactic antibiotics. Prior Anticoagulants: The patient has taken no anticoagulant or antiplatelet agents except for NSAID medication. ASA Grade Assessment: II - A patient with mild systemic disease. After reviewing the risks and benefits, the patient was deemed in satisfactory condition to undergo the procedure. The anesthesia plan was to use monitored anesthesia care (MAC). Immediately prior to administration of medications, the patient was re-assessed for adequacy to receive sedatives. The heart rate, respiratory rate, oxygen saturations, blood pressure, adequacy of pulmonary ventilation, and response to care were monitored throughout the procedure. The physical status of the patient was re-assessed after the procedure. After obtaining informed consent, the endoscope was passed under direct vision. Throughout the procedure, the patient's blood pressure, pulse, and oxygen saturations were monitored continuously. The Endoscope was introduced through the mouth, and advanced to the second part of duodenum. The upper GI endoscopy was accomplished without difficulty. The patient tolerated the procedure well. Scope In: 1:11:50 PM Scope Out: 1:14:52 PM Total Procedure Duration Time 0 hours 3 minutes 2 seconds Findings: No gross lesions were noted in the entire esophagus. Patchy mildly erythematous mucosa without bleeding was found in the gastric body and in the gastric antrum. Biopsies were taken with a cold forceps for histology. Verification of patient identification for the specimen was done. Estimated blood loss was minimal. Biopsies were taken with a cold forceps for Helicobacter pylori testing. Verification of patient identification for the specimen was done. Estimated blood loss was minimal. No gross lesions were noted in the third portion of the duodenum. Impression: - No gross lesions in the entire esophagus. - Erythematous mucosa in the gastric body and antrum. Biopsied. - No gross lesions in the third portion of the duodenum. Recommendation: - Discharge patient to home. - Resume previous diet. - Continue present medications. - Await pathology results. -Protonix 40 mg p.o. twice daily -Carafate 1 g 3 times daily Procedure Code(s): --- Professional --- 47958, Esophagogastroduodenoscopy, flexible, transoral; with biopsy, single or multiple CPT copyright 2021 [employer]. All rights reserved. The codes documented in this report are preliminary and upon hims coder review may be revised to meet current compliance requirements. Tino Jones DO 01/22/2025 1:21:25 PM This report has been signed electronically. Number of Addenda: 0 Note Initiated On: 01/22/2025 12:58 PM
--- NOTE | 2025-01-22 13:22 | OP.CCLET_ITS ---
01/22/2025 Domo Blake MD [address] [id number] Re : Upper GI endoscopy procedure for [facility] Dear Dr. Blake This procedure was performed on Wednesday, January 22, 2025. My impressions and recommendations are as follows: Impressions : - No gross lesions in the entire esophagus. - Erythematous mucosa in the gastric body and antrum. Biopsied. - No gross lesions in the third portion of the duodenum. Recommendations : - Discharge patient to home. - Resume previous diet. - Continue present medications. - Await pathology results. -Protonix 40 mg p.o. twice daily -Carafate 1 g 3 times daily My findings are described in the full procedure note, which is enclosed. If I can be of further assistance, please feel free to contact me at . Sincerely, Tino Jones, 01/22/2025 1:21:25 PM This report has been signed electronically.
--- NOTE | 2025-01-22 13:25 | PCM.POST.ANE ---
Anesthesia: Postop Eval I Current Vital Signs Temperature: 97 F Pulse Rate: 74 Blood Pressure: 86/52 Respiratory Rate: 16 Pulse Ox: 93 Oxygen Delivery Method: Room Air Assessment Airway patent: Yes Spontaneous unlabored respirations: Yes Mental status: Awake and Calm nausea: No Vomiting: No Anesthesia Complication: No Fluid Hydration Crystalloid volume administer (ml): 30 Total IV fluid infused: 30 Progress Note Anesthesia document: Postop Eval 1 completed: Yes
--- NOTE | 2025-01-22 14:06 | PCM.POSTANE2 ---
Anesthesia Postop Eval I Sum Postop Eval Completion status Anesthesia document: Postop Eval 1 completed: Yes Anesthesia Postop Eval I Summary Anesthesia Postop Eval I Summary: Anesthesia Postop Eval I: Assessment Summary Airway patent Yes 01/22/25 13:26 [email or web address] Spontaneous unlabored Yes 01/22/25 13:26 [email or web address] respirations Mental status Awake,Calm 01/22/25 13:26 [email or web address] nausea No 01/22/25 13:26 [email or web address] Vomiting No 01/22/25 13:26 [email or web address] Anesthesia Postop Eval I: Fluid Summary Crystalloid volume administer 30 01/22/25 13:26 [email or web address] (ml) Colloids volume administered ( ml) Blood Product volume administered (ml) Total IV fluid infused 30 01/22/25 13:26 [email or web address] Anesthesia Postop Eval I: Summary Notes Anesthesia Complication No 01/22/25 13:26 [email or web address] Anesthesia Complication Comment: Post-operative progress note Anesthesia: Postop Eval II Evaluation Mental status: Awake Pain Level: 0 nausea: No Vomiting: No
== END 2025-01-22 14:15 | disposition home or self-care (01) ==
LOC: EN 11:01 → AC 11:03
PROVIDERS: PCP Family Medicine; Referring Provider Family Medicine; Visit Provider Internal Medicine Gastroenterology
PROC: 0DJ08ZZ Inspection of Upper Intestinal Tract, Via Natural or Artificial Opening Endoscopic (ICD-10-PCS; CPT 43235; principal; 2025-01-22 11:55)
DX: R19.7 Diarrhea, unspecified (principal); J44.9 Chronic obstructive pulmonary disease, unspecified; E11.22 Type 2 diabetes mellitus with diabetic chronic kidney disease; Z79.4 Long term (current) use of insulin; N18.30 Chronic kidney disease, stage 3 unspecified; K21.9 Gastro-esophageal reflux disease without esophagitis; Z87.891 Personal history of nicotine dependence; I25.10 Atherosclerotic heart disease of native coronary artery without angina pectoris; E78.00 Pure hypercholesterolemia, unspecified; I12.9 Hypertensive chronic kidney disease with stage 1 through stage 4 chronic kidney disease, or unspecified chronic kidney disease; R10.9 Unspecified abdominal pain; Z86.73 Personal history of transient ischemic attack (TIA), and cerebral infarction without residual deficits; G47.33 Obstructive sleep apnea (adult) (pediatric); Z99.81 Dependence on supplemental oxygen; Z79.51 Long term (current) use of inhaled steroids; F32.A Depression, unspecified; Z79.899 Other long term (current) drug therapy; E03.9 Hypothyroidism, unspecified; Z79.890 Hormone replacement therapy; Z79.82 Long term (current) use of aspirin; K29.50 Unspecified chronic gastritis without bleeding
CPT/HCPCS: 43239; 82962; 88305; 88341; 88342; A4216; J2405

== ENCOUNTER → 2025-05-01 | Outpatient (CLI) | payer MEDICARE, MEDICAID, SELFPAY | END | disposition home or self-care (01) | LOC: LABSPEC 17:00 | PROVIDERS: PCP Family Medicine; Referring Provider Otolaryngology; Visit Provider Otolaryngology | DX: J01.90 Acute sinusitis, unspecified (principal) | CPT/HCPCS: 87070; 87077; 87186; 87205 ==

== ENCOUNTER → 2025-05-02 | Outpatient (CLI) | payer MEDICARE, MEDICAID, SELFPAY ==
--- NOTE | 2025-05-02 09:32 | NM_ITS ---
PROCEDURE: GASTRIC EMPTYING STUDY - 4 HR 05/02/2025 REASON FOR EXAM: EPIGASTRIC PAIN, EARLY SATIETY COMPARISON: None TECHNIQUE: The patient ingested a standard meal of 2 eggs, 2 slices of bread, 2 pads of butter, and 6 oz water. There was no vomiting postprandially. Anterior and posterior planar images of the upper abdomen were obtained for 1 minute immediately following the meal at 1h, 2h and 4h if more than 10% of the activity persisted within the stomach. Regions of interest were drawn, and a geometric mean was used to calculate a [id number]. Medications taken in the past 24 hours that may affect gastric emptying: None RADIOPHARMACEUTICAL: Technetium 99 M sulfur colloid DOSE 1.2mCi orally, with the solid meal. FINDINGS: During the time of imaging, gastroesophageal reflux was not visualized. Linear fit gastric emptying half-time of 114.5 minutes. Raw data fit gastric emptying half-time of 93.9 minutes. Percent activity remaining in stomach: 1 hour 84 % (normal 37-90%) 2 hours: 38 % (normal 30-60%) 4 hours: 6 % (normal 0-10%) [place]/Gastric Emptying Study - 4 HR IMPRESSION: Normal solid phase gastric emptying. Reading Location: [place] [id number]
== END | disposition home or self-care (01) ==
LOC: NM 09:28
PROVIDERS: PCP Family Medicine; Referring Provider Nurse Practitioner Acute Care; Visit Provider Nurse Practitioner Acute Care
DX: R10.13 Epigastric pain (principal); R68.81 Early satiety; R19.7 Diarrhea, unspecified
CPT/HCPCS: 78264; A9541

== ENCOUNTER → 2025-05-07 | Outpatient (CLI) | payer MEDICARE, MEDICAID, SELFPAY ==
[2025-05-07 16:59] LABS: CREATININE FINGERSTICK < 1.0 mg/dL (0.70-1.30); EGFR FINGERSTICK > 60.0000 mL/min (>60)
== END | disposition home or self-care (01) ==
LOC: CT 14:33
PROVIDERS: PCP Family Medicine; Referring Provider Nurse Practitioner Acute Care; Visit Provider Nurse Practitioner Acute Care
DX: R10.9 Unspecified abdominal pain (principal); R19.7 Diarrhea, unspecified
CPT/HCPCS: 74177; Q9967; A4216

== ENCOUNTER 2025-06-21 18:00 | Emergency (ER) | payer MEDICARE, MEDICAID, SELFPAY ==
[2025-06-21 18:01] VITALS: BP 182/106; PULSE 87; RESP 18; TEMP 36.8; O2SAT 97; BMI 43.9
--- NOTE | 2025-06-21 18:36 | ED.VIS.GI ---
HPI HPI - GI History of Present Illness Chief Complaint: Abd Pain Narrative Narrative: Patient is a 69-year-old male presenting to the emergency department for 4 to 5 months of abdominal pain that is unchanged. Patient has a past medical history as below. He reports that he has a history of ulcerative colitis. Patient states that he just finished an antibiotic prescribed by his GI, Dr. Jones. States that he finished it a few days ago. Reports that he is had no improvement in his pain. Reports that it feels like a burning hot water deep in my stomach. It is constant. Denies fever or chills. Denies chest pain or shortness of breath. Reports some nausea with no vomiting. Reports diarrhea that he has also had for multiple months and has seen GI about this as well. Denies any dysuria or hematuria. [facility] Medical History Wears glasses Wears partial dentures Alcohol use Marijuana use Thyroid disease Low iron Anemia High cholesterol Restless legs Back pain Stroke/cerebrovascular accident BiPAP (biphasic positive airway pressure) dependence Sleep apnea Hoarseness History of heart attack MRSA (methicillin resistant staph aureus) culture positive Essential hypertension Atherosclerosis of coronary artery of [place] heart without angina pectoris Morbid obesity Chest pain Hx of diabetic foot ulcer SARS-CoV-2 positive Lives in custodial Loss of hearing Substance abuse Insulin dependent diabetes mellitus Uses wheelchair History of renal disease Emphysema, unspecified COPD (chronic obstructive pulmonary disease) Shortness of breath on exertion Chronic cough History of edema Non-pressure chronic ulcer of other part of right foot with fat layer exposed GI bleed TIA (transient ischemic attack) Diabetic infection of right foot Acute osteomyelitis of metatarsal bone of right foot Type 2 diabetes mellitus with foot ulcer Diabetes mellitus with diabetic polyneuropathy Non-pressure chronic ulcer of other part of right foot with necrosis of muscle Osteomyelitis of ankle or foot, right, acute Carotid stenosis with cerebral infarction less than 8 weeks ago Acute CVA (cerebrovascular accident) Depression Anxiety Osteoporosis Former smoker Physical debility Hallux limitus of right foot Osteoarthritis Enlarged RV (right ventricle) Grade I diastolic dysfunction Pulmonary hypertension Chronic renal failure, stage 3 (moderate) Super obesity Vitamin deficiency GERD (gastroesophageal reflux disease) prostate problems Recurrent infections Arthritis Alcohol abuse Alcoholism in recovery Charcot's joint of foot due to diabetes Diabetic neuropathy associated with type 2 diabetes mellitus Venous stasis dermatitis Hyperlipidemia Non-compliance New left bundle branch block Diabetic foot ulcer associated with type 2 diabetes mellitus CECILE treated with BiPAP Hypothyroidism Home Medications ?Medication ?Instructions ?Recorded ?Last Taken ?Type fluticasone propionate 50 2 spray intranasal DAILY PRN PRN 02/14/18 10/05/22 History mcg/actuation nasal Sinus Congestion spray,suspension (Flonase Allergy Relief) bupropion HCl 150 mg tablet,12 hr 150 mg PO BID DEPRESSION 03/21/20 01/22/25 History sustained-release levothyroxine 75 mcg tablet 225 mcg PO DAILY@0600 thyroid 04/21/20 01/22/25 History albuterol sulfate 90 mcg/actuation 2 inh inhalation Q4H PRN shortness 06/13/22 10/04/22 Rx aerosol inhaler (ProAir HFA) of breath or wheezing #6.7 grams aspirin 81 mg chewable tablet 81 mg PO BREAKFAST heart health 10/05/22 01/20/25 History atorvastatin 80 mg tablet 80 mg PO QHS cholesterol 10/05/22 11/28/22 22:00 History acetaminophen 325 mg tablet 650 mg (2 x 325 mg) PO Q6H PRN PRN 10/09/22 Unknown Rx (Tylenol) Pain 1-10 Or Fever>100.7 #30 tabs bisacodyl 10 mg rectal suppository 10 mg OH DAILY PRN Constipation 11/29/22 Unknown History folic acid 1 mg tablet 1 mg PO DAILY Check with primary 11/29/22 11/29/22 08:00 History doctor ascorbic acid (vitamin C) 500 mg 500 mg PO DAILY supplement 11/30/22 11/29/22 History tablet (Vitamin C) cyanocobalamin (vitamin B-12) 500 500 mcg PO DAILY supplement 11/30/22 11/29/22 History mcg tablet (Vitamin B-12) lisinopril 10 mg tablet 10 mg PO DAILY bp 11/30/22 01/22/25 History multivitamin,tx-minerals 1 tab PO DAILY health maintance 11/30/22 11/30/22 History oxybutynin chloride 5 mg 5 mg PO QHS bladder spasms 11/30/22 11/30/22 History tablet,extended release 24 hr ropinirole 0.25 mg tablet 0.25 mg PO BID rls 11/30/22 02/09/23 History magnesium hydroxide 400 mg/5 mL 30 ml PO DAILY PRN Constipation 12/31/22 Unknown History oral suspension (Milk of Magnesia) trazodone 50 mg tablet 50 mg PO QHS 12/31/22 Unknown History insulin glargine 100 unit/mL (3 60 unit subcut .QAM blood sugar 03/04/23 Unknown History mL) subcutaneous pen (Lantus Solostar U-100 Insulin) metoprolol succinate 50 mg 50 mg PO QHS 03/04/23 01/21/25 History tablet,extended release 24 hr isosorbide mononitrate 30 mg 30 mg PO DAILY #30 tabs 04/14/23 01/21/25 Rx tablet,extended release 24 hr loratadine 10 mg tablet 10 mg PO DAILY 04/14/23 Unknown History gabapentin 300 mg capsule 300 mg PO QHS 07/26/23 Unknown History buspirone 10 mg tablet 10 mg PO TID 06/21/24 01/22/25 History cyclobenzaprine 7.5 mg tablet 7.5 mg PO Q8H PRN 06/21/24 Unknown History dulaglutide 1.5 mg/0.5 mL 3 mg subcut QWEEK blood sugar 10/24/24 01/12/25 History subcutaneous pen injector (Trulicity) ergocalciferol (vitamin D2) 50 mcg 50 mcg PO QDAY 10/24/24 Unknown History (2,000 unit) capsule dicyclomine 20 mg tablet 20 mg PO .QAM 01/16/25 Unknown History albuterol sulfate 90 mcg/actuation 2 puff inhalation Q4-6H PRN 02/12/25 Unknown History aerosol inhaler artifi.tears(hypromellose)(PF) 1.7 1 drp ophthalmic (eye) Q4-6H PRN 02/12/25 Unknown History % eye drops with applicator lactase 3,000 unit tablet (Lactaid) 3,000 unit PO ONCE 02/12/25 Unknown History lactobacillus combo no.11 15 1 cap PO QDAY 02/12/25 Unknown History billion cell sprinkle capsule (Probiotic) sucralfate 1 gram tablet 1 g PO TID #90 tabs 02/12/25 Unknown Rx linaclotide 145 mcg capsule 145 mcg PO QAM #90 caps 06/05/25 Unknown Rx (Linzess) loperamide 2 mg chewable tablet mg PO PRN 06/05/25 Unknown History omeprazole 20 mg capsule,delayed 20 mg PO QDAY 06/05/25 Unknown History release omeprazole 20 mg capsule,delayed 20 mg PO BID #14 caps 06/21/25 Unknown Rx release Allergy/AdvReac Type Severity Reaction Status Date / Time No Known Allergies Allergy Verified 06/21/25 18:00 Family History Mother Arthritis Diabetes Hypertension High cholesterol Osteoporosis Sister Breast cancer Cancer High cholesterol Brother Lung cancer High cholesterol Father Hypertension High cholesterol Surgical History History of right heart catheterization (~2005) History of left heart catheterization (~2005) 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 No acute distress HEENT: Head is normocephalic and atraumatic, sinuses nontender, pupils equal round and reactive. Nares are patent. Oropharynx and throat exams normal. Neck: Supple without lymphadenopathy nontender Cardiovascular: Regular rate and rhythm, no murmurs. No rubs or gallops. Normal S1 and S2 Respiratory: Clear to auscultation bilaterally. No wheezes, rales, rhonchi Abdominal: Soft and very mildly tender to palpation in the lower epigastric/upper periumbilical region. Normal bowel sounds. No guarding or rebound. Nonsurgical abdomen Extremities: No tenderness. No bruising. Normal range of motion. Normal sensation. Left BKA. Skin: No rash or redness. Neurological: Cranial nerves II through XII are grossly intact. Normal strength and sensation. Normal cerebellar function The rest of the physical exam is unremarkable Const Vital Signs: 06/21/25 18:01 06/21/25 19:58 Temperature 98.3 F Temperature Source Oral Pulse Rate 87 85 Respiratory Rate 18 Blood Pressure 182/106 H 153/90 H Blood Pressure Mean 131 111 Pulse Ox 97 93 Oxygen Delivery Method Room Air Room Air MDM MDM MDM Narrative Medical decision making narrative: Patient is a 69-year-old male presenting to the emergency department for abdominal pain that has had 4 to 5 months that is unchanged. Patient was seen and examined. Vitals are stable. Patient resting bed comfortably no acute distress. Differential includes but is not limited to: Gastritis, colitis, PUD, GERD, pancreatitis CBC with a mild leukocytosis of 14.2 and a hemoglobin of 17.4. CMP with mild anion gap of 16. Creatinine of 1.38 which looks improved from his baseline. Liver enzymes normal. Lipase normal. Urinalysis with no evidence of infection. CT shows a small fat-containing umbilical hernia and colonic diverticulosis. No other significant findings. Patient was reevaluated after GI cocktail of viscous lidocaine and Maalox as well as Zofran. He was requesting his nightly dose of BuSpar before the CT was done which was given. Patient states that his symptoms have resolved after medications. Given the burning sensation of the pain and negative workup I suspect it is likely gastritis. 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 Patient agreeable with plan. Patient discharged from the Emergency Department. I do not feel that the patient's evaluation reveals any acute reason for admission at this time. I instructed them to either follow-up with their primary care physician or promptly return to the Emergency Department for reevaluation should symptoms worsen or new symptoms develop. I explained what symptoms would indicate the need to return to the emergency department. Shared decision making was used. The patient voiced understanding of the treatment plan and is agreeable with it. Clinical impression abdominal pain gastritis History & Record Review Discussion w/independent historian: Patient Lab Data Attestation: I reviewed the patient's lab results. Labs: Laboratory Results - last 24 hr 06/21/25 06/21/25 18:40 18:45 WBC 14.2 H RBC 5.78 Hgb 17.4 H Hct 50.7 MCV 87.7 MCH 30.1 MCHC 34.3 RDW Std Deviation 45.8 H RDW Coeff of Jose 14.4 Plt Count 280 MPV 10.2 Immature Gran % (Auto) 0.800 Neut % (Auto) 66.6 Lymph % (Auto) 23.4 [place] % (Auto) 7.1 Eos % (Auto) 1.0 Baso % (Auto) 1.1 H Absolute Neuts (auto) 9.5 H Absolute Lymphs (auto) 3.33 Nucleated RBC % 0 Sodium 140 Potassium 3.6 Chloride 104 Carbon Dioxide 20.3 L Anion Gap 16 H BUN 16 Creatinine 1.38 H Estim Creat Clear Calc 73.06 Est GFR (MDRD) Non-Af 56 L BUN/Creatinine Ratio 11.3 Glucose 104 H Calcium 9.8 Total Bilirubin 0.70 AST 27 ALT 23 Alkaline Phosphatase 128 Total Protein 7.6 Albumin 4.2 Globulin 3.4 Albumin/Globulin Ratio 1.2 Lipase 18 Urine Color Straw Urine Clarity Clear Urine pH 6.5 Ur Specific [place] 1.005 Urine Protein 15 H Urine Glucose (UA) Normal Urine Ketones Negative Urine Occult Blood Negative Urine Nitrite Negative Urine Bilirubin Negative Urine Urobilinogen Normal Ur Leukocyte Esterase 25 H Urine RBC 0-5 SEEN Urine WBC 0-5 SEEN Ur Squamous Epith Cells 0 SEEN Urine Bacteria 0 SEEN Urine Mucus 0 SEEN Radiography Diagnostic Testing: Clinical Impression(s) from Imaging Studies Abdomen/Pelvis CT 06/21/25 19:55 IMPRESSION: Small fat containing umbilical hernia. Colonic diverticulosis. Reading Location: [facility] Discharge Plan Triage Chief Complaint: Abd Pain ED Provider: Liset Taylor Dx/Rx/DC Orders Clinical Impression: Abdominal pain Instructions: Abdominal Pain Prescriptions: New omeprazole 20 mg capsule,delayed release(DR/EC) 20 mg PO BID Qty: 14 0RF No Action fluticasone propionate [Flonase Allergy Relief] 50 mcg/actuation spray,suspension 2 spray INTRANASAL DAILY PRN PRN (Reason: Sinus Congestion) magnesium hydroxide [Milk of Magnesia] 400 mg/5 mL suspension 30 ml PO DAILY PRN (Reason: Constipation) trazodone 50 mg tablet 50 mg PO QHS metoprolol succinate 50 mg tablet extended release 24 hr 50 mg PO QHS loratadine 10 mg tablet 10 mg PO DAILY isosorbide mononitrate 30 mg tablet extended release 24 hr 30 mg PO DAILY Qty: 30 11RF gabapentin 300 mg capsule 300 mg PO QHS buspirone 10 mg tablet 10 mg PO TID cyclobenzaprine 7.5 mg tablet 7.5 mg PO Q8H PRN ergocalciferol (vitamin D2) 50 mcg (2,000 unit) capsule 50 mcg PO QDAY lactase [Lactaid] 3,000 unit tablet 3,000 unit PO ONCE Rx Instructions: administer with meals and/or snacks artifi.tears(hypromellose)(PF) 1.7 % drops with applicator 1 drp ophthalmic (eye) Q4-6H PRN albuterol sulfate 90 mcg/actuation HFA aerosol inhaler 2 puff inhalation Q4-6H PRN Probiotic 15 billion cell capsule, sprinkle 1 cap PO QDAY Rx Instructions: do not crush/chew/cut; swallow whole OR may open and sprinkle in cold drink/food sucralfate 1 gram tablet 1 g PO TID Qty: 90 0RF Rx Instructions: dissolve 1 tablet in 10cc of water and swallow TID before meals omeprazole 20 mg capsule,delayed release(DR/EC) 20 mg PO QDAY loperamide 2 mg tablet,chewable PO PRN Linzess 145 mcg capsule 145 mcg PO QAM Qty: 90 3RF Rx Instructions: take once daily 30 minutes before breakfast every morning bupropion HCl 150 MG tablet sustained-release 12 hr 150 mg PO BID Patient Comments: depression levothyroxine 75 MCG tablet 225 mcg PO DAILY@0600 Patient Comments: thyroid albuterol sulfate [ProAir HFA] 90 mcg/actuation HFA aerosol inhaler 2 inh inhalation Q4H PRN (Reason: shortness of breath or wheezing) Qty: 6.7 0RF atorvastatin 80 mg tablet 80 mg PO QHS aspirin 81 mg tablet,chewable 81 mg PO BREAKFAST acetaminophen [Tylenol] 325 mg Tablet 650 mg PO Q6H PRN PRN (Reason: Pain 1-10 Or Fever>100.7) Qty: 30 0RF bisacodyl 10 mg Suppository 10 mg OH DAILY PRN (Reason: Constipation) folic acid 1 mg Tablet 1 mg PO DAILY oxybutynin chloride 5 mg Tablet Extended Release 24hr 5 mg PO QHS cyanocobalamin (vitamin B-12) [Vitamin B-12] 500 mcg Tablet 500 mcg PO DAILY ascorbic acid (vitamin C) [Vitamin C] 500 mg Tablet 500 mg PO DAILY ropinirole 0.25 mg Tablet 0.25 mg PO BID lisinopril 10 mg Tablet 10 mg PO DAILY multivitamin,tx-minerals Tablet 1 tab PO DAILY insulin glargine [Lantus Solostar U-100 Insulin] 100 unit/mL (3 mL) insulin pen 60 unit SUBCUT .QAM Trulicity 1.5 mg/0.5 mL pen injector 3 mg SUBCUT QWEEK Rx Instructions: TAKES ON THURSDAYS dicyclomine 20 mg tablet 20 mg PO .QAM Primary Care Provider: Domo Blake Referrals: Domo Blake MD [Primary Care Provider] - Friend,DO Tino [Med Staff - Active Staff] - Activity Restrictions/Additional Instructions: Please follow-up with 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 I recommend that you begin taking omeprazole again for the next 2 weeks. When you follow-up with the doctor you can discuss continuation of this versus stopping it. Your evaluation in the Emergency Department did not reveal any acute reason for admission. However, I want to emphasize that you may be early in the course of a disease process or illness even if it is not present. For this reason you should follow-up within 24 hours for reevaluation with either your primary care physician or if necessary back here in the Emergency Department. You should return to the Emergency Department immediately if your symptoms worsen or new symptoms develop. Print Language: Lithuanian Disposition Disposition: Home, Self Care
[2025-06-21] MEDS: Lidocaine 2% Viscous15 ML UDC 15 ML PO (18:43)
[2025-06-21 19:00] LABS: Mucous, Urine 0 SEEN /hpf (<or=2+); Squamous Epithelial Cells - UA 0 SEEN /hpf (0-5)
[2025-06-21 19:03] LABS: Hematocrit 50.7 % (40-54); Hemoglobin 17.4 g/dL (13.0-16.5); Immature Granulocytes Count 0.120 X10^3/uL (0.0-0.0); Mean Corp Hgb Conc 34.3 g/dL (32-36); Mean Corpuscular Volume 87.7 fL (80-94); Mean Platelet Vol. 10.2 fl (6.2-12.0); NRBC Flagged by Analyzer 0 % (0-5); Platelet Count 280 K/mm3 (150-450); RBC Distribution Width CV 14.4 % (11.6-14.6); RBC Distribution Width SD 45.8 fl (35.1-43.9); Red Blood Count 5.78 M/mm3 (4.6-6.2); White Blood Count 14.2 K/mm3 (4.4-11.0)
[2025-06-21 19:09] LABS: Color, Urine Straw (Yellow); Glucose, Dipstick Normal (Normal); Ketone-Dipstick Negative (Negative); Leukocyte Esterase-Dipstick 25 /ul (Negative); Nitrite-Dipstick Negative (Negative); Occult Blood-Urine Negative /ul (Negative); Protein-Dipstick 15 mg/dl (Negative); Specific Gravity, Urine 1.005 (1.002-1.030); Urine Bilirubin Dipstick Negative (Negative)
[2025-06-21 19:26] LABS: AST(SGOT) 27 U/L (<=37); Alanine Aminotransfer ALT/SGPT 23 U/L (<=46); Albumin, Serum 4.2 g/dL (3.4-4.8); Alkaline Phosphatase 128 U/L (40-129); Anion Gap 16 (5-15); BUN 16 mg/dL (4-19); BUN/Creat Ratio 11.3 RATIO (10-20); Calcium,Total 9.8 mg/dL (7.6-11.0); Carbon Dioxide 20.3 mmol/L (21.0-32.0); Chloride 104 mmol/L (98-108); Estimated Creatinine Clearance 73.06 ml/min (50-250); Globulin 3.4 g/dL (2.2-4.2); Glucose 104 mg/dL (70-99); Lipase 18 U/L (13-75); Potassium 3.6 mmol/L (3.3-5.1)
--- NOTE | 2025-06-21 19:55 | CT_ITS ---
PROCEDURE: ABDOMEN/PELVIS W IV CONT ONLY 06/21/2025 REASON FOR EXAM: ABDOMINAL PAIN TECHNIQUE: ABDOMEN/PELVIS W IV CONT ONLY Coronal and Sagittal reconstruction series were provided. CONTRAST: Isovue 370 VOLUME: 99 mL One or more dose reduction techniques were used (e.g., Automated exposure control, adjustment of the mA and/or kV according to patient size, use of iterative reconstruction technique. RADIATION DOSE SUMMARY: CTDlvol: 13+ 24 mGy DLP: 1714 mGycm COMPARISON: 05/08/2025. FINDINGS: Small fat containing umbilical hernia. Degenerative changes of the spine. Mild to moderate atherosclerosis. No suspicious lymphadenopathy. Liver and gallbladder unremarkable. Punctate calcifications in the pancreas likely representing prior pancreatitis. The adrenals are unremarkable. Symmetric enhancement of the bilateral kidneys. No hydroureteronephrosis. The urinary bladder is unremarkable. Normal size prostate. CT/Abdomen/Pelvis W IV Cont ONLY IMPRESSION: Small fat containing umbilical hernia. Colonic diverticulosis. Reading Location: [id number]
[2025-06-21 19:58] VITALS: BP 153/90; PULSE 85; O2SAT 93
[2025-06-21 19:59] LABS: Red Blood Cells-Urine 0-5 SEEN /hpf (0-5)
--- NOTE | 2025-06-21 21:54 | ED.RN ---
Report called to the [facility]
[2025-06-21 22:00] VITALS: BP 153/103; PULSE 81; O2SAT 99
[2025-06-21 22:01] VITALS: BP 153/103; PULSE 81; RESP 18; TEMP 36.8; O2SAT 99
== END 2025-06-21 23:15 | disposition home or self-care (01) ==
PROVIDERS: Emergency Provider Student in an Organized Health Care Education/Training Program; PCP Family Medicine; Visit Provider Student in an Organized Health Care Education/Training Program
DX: R10.9 Unspecified abdominal pain (principal); I11.0 Hypertensive heart disease with heart failure; J43.9 Emphysema, unspecified; K51.90 Ulcerative colitis, unspecified, without complications; E11.42 Type 2 diabetes mellitus with diabetic polyneuropathy; E11.22 Type 2 diabetes mellitus with diabetic chronic kidney disease; Z79.4 Long term (current) use of insulin; I25.10 Atherosclerotic heart disease of native coronary artery without angina pectoris; E78.00 Pure hypercholesterolemia, unspecified; E03.9 Hypothyroidism, unspecified; Z79.82 Long term (current) use of aspirin; Z79.85 Long-term (current) use of injectable non-insulin antidiabetic drugs; Z79.890 Hormone replacement therapy; Z79.899 Other long term (current) drug therapy; Z87.891 Personal history of nicotine dependence; Z12.5 Encounter for screening for malignant neoplasm of prostate; Z86.73 Personal history of transient ischemic attack (TIA), and cerebral infarction without residual deficits
CPT/HCPCS: 74177; 80053; 81001; 83690; 85025; 96374; 99285; Q9967; A4216; J2405

== ENCOUNTER → 2025-07-25 | Outpatient (CLI) | payer MEDICARE, MEDICAID, SELFPAY | END | disposition home or self-care (01) | LOC: LABSPEC 15:30 | PROVIDERS: PCP Family Medicine; Referring Provider Otolaryngology; Visit Provider Otolaryngology | DX: J32.8 Other chronic sinusitis (principal) | CPT/HCPCS: 87070; 87077; 87186; 87205 ==